=== PATIENT | male | born 1950 | race Caucasian/White ===

== ENCOUNTER 2020-05-12 13:42 | Emergency (ER) | payer OTHER, MEDICARE ==
--- NOTE | 2020-05-12 15:15 | EDPHYS ---
Physician Documentation [facility] Name: Tristan Rothman Jr Age: 70 yrs Sex: Male : 1950 Arrival Date: 05/12/2020 Time: 13:53 Bed 19 Private MD: ED Physician Heladio Vital HPI: 05/12 14:28 This 70 yrs old Male presents to ER via Ambulatory with complaints of COVID jr8 Testing. 14:28 Patients significant other has been presenting with symptoms consistent with COVID 19. jr8 Stated that she has had it for the past 4 days. Now he is worried that he may get it and wanted to be tested . The patient has not experienced similar symptoms in the past. The patient has not recently seen a physician. Historical: - Allergies: 13:59 No Known Allergies; ll1 - PMHx: 13:59 Hypertension; Diabetes - NIDDM; ll1 - PSHx: 13:59 knee surgery; ll1 - Immunization history:: Flu vaccine is up to date. - Social history:: Smoking status: Patient/guardian denies using tobacco, the patient reports quitting approximately 38 years ago, Patient uses alcohol, only on a social basis. admits to "couple of beers" a day. Patient/guardian denies using street drugs. ROS: 14:28 Constitutional: Negative for fever, chills, and weight loss, Eyes: Negative for injury, jr8 pain, redness, and discharge, ENT: Negative for injury, pain, and discharge, Neck: Negative for injury, pain, and swelling, Cardiovascular: Negative for chest pain, palpitations, and edema, Respiratory: Negative for shortness of breath, cough, wheezing, and pleuritic chest pain, Abdomen/GI: Negative for abdominal pain, nausea, vomiting, diarrhea, and constipation, Back: Negative for injury and pain, MS/Extremity: Negative for injury and deformity, Skin: Negative for injury, rash, and discoloration, Neuro: Negative for headache, weakness, numbness, tingling, and seizure. Exam: 14:28 Constitutional: This is a well developed, well nourished patient who is awake, alert, jr8 and in no acute distress. Eyes: Pupils equal round and reactive to light, extra-ocular motions intact. Lids and lashes normal. Conjunctiva and sclera are non-icteric and not injected. Cornea within normal limits. Periorbital areas with no swelling, redness, or edema. 14:28 Neuro: Awake and alert, GCS 15, oriented to person, place, time, and situation. Cranial nerves II-XII grossly intact. Motor strength 5/5 in all extremities. Sensory grossly intact. Cerebellar exam normal. Normal gait. 14:28 Cardiovascular: Rate: normal, Rhythm: regular, Edema: is not appreciated. 14:28 Respiratory: the patient does not display signs of respiratory distress, Respirations: normal. 14:28 Skin: Appearance: Color: normal in color, pink, Moisture: normal moisture. Vital Signs: 13:57 BP 132 / 78; Pulse 88; Resp 17; Temp 99.3; Pulse Ox 99% ; Pain 0/10; ll1 14:44 BP 116 / 69; Pulse 83; Resp 17; Temp 97.4; Pulse Ox 99% on R/A; vc MDM: 14:02 Patient medically screened. [facility] 14:28 Data reviewed: vital signs, nurses notes, lab test result(s), and as a result, I will 8 discharge patient. Data interpreted: Pulse oximetry: on room air is 99 %. Interpretation: normal. Counseling: I had a detailed discussion with the patient and/or guardian regarding: the historical points, exam findings, and any diagnostic results supporting the discharge/admit diagnosis, lab results, the need for outpatient follow up, a family practitioner, to return to the emergency department if symptoms worsen or persist or if there are any questions or concerns that arise at home. ED course: Discussed with patient to remain in isolation. If he were to become short of breath to come back to ED for further evaluation . 05/12 14:07 Order name: COVID-19 [facility] 05/12 14:07 Order name: Droplet/Contact Precautions; Complete Time: 14:44 8 05/12 14:07 Order name: Labs collected and sent; Complete Time: :44 8 05/12 14:07 Order name: O2 Per Protocol; Complete Time: :44 Administered Medications: No medications were administered Disposition: 16:02 Co-signature as Attending Physician, Heladio Vital MD. rn Disposition: 05/12/20 15:14 Discharged to Home. Impression: Encounter for COVID 19 screening . - Condition is Stable. - Discharge Instructions: COVID-19. - Medication Reconciliation Form, Thank You Letter, Antibiotic Education, Prescription Opioid Use form. - Follow up: Private Physician; When: As needed; Reason: Recheck today's complaints, Continuance of care, Re-evaluation by your physician. - Problem is new. - Symptoms are unchanged. Signatures: Dispatcher [employer] EDMS Heladio Vital MD MD rn Hieu Montague PA PA jr8 Lucy Ludwig RN RN vc Lewis, Lynsay, RN RN ll1 Corrections: (The following items were deleted from the chart) 15:55 15:14 05/12/2020 15:14 Discharged to Home. Impression: Encounter for COVID 19 screening vc . Condition is Stable. Forms are Medication Reconciliation Form, Thank You Letter, Antibiotic Education, Prescription Opioid Use. Follow up: Private Physician; When: As needed; Reason: Recheck today's complaints, Continuance of care, Re-evaluation by your physician. Problem is new. Symptoms are unchanged. jr8
--- NOTE | 2020-05-12 15:15 | ER ---
Nurse's Notes [facility] Name: Tristan Rothman Jr Age: 70 yrs Sex: Male : 1950 Arrival Date: 05/12/2020 Time: 13:53 Bed 19 Private MD: Diagnosis: Encounter for COVID 19 screening Presentation: 05/12 13:57 Chief complaint: Patient states: Significant other is sick and he wants to be tested ll1 for vicente since she is here being seen also. Denies cough fever and N/V/D. Coronavirus screen: Surgical mask placed on patient. Patient moved to private room, placed in contact and droplet isolation with eye protection until further assessment. Patient denies a cough. Patient denies shortness of breath or difficulty breathing. Patient denies measured and/or subjective temperature greater than 100.4F prior to today's visit. Patient denies travel on a cruise ship or to a country the [facility] currently lists as an affected area. Patient denies contact with known and/or suspected case of COVID-19. Ebola Screen: Patient denies travel to an Ebola-affected area in the 21 days before illness onset. Initial Sepsis Screen: Does the patient meet any 2 criteria? No. Patient's initial sepsis screen is negative. Does the patient have a suspected source of infection? No. Patient's initial sepsis screen is negative. Risk Assessment: Do you want to hurt yourself or someone else? Patient reports no desire to harm self or others. Onset of symptoms was May 12, 2020. 13:57 Method Of Arrival: Ambulatory ll1 13:57 Acuity: MARINA 5 ll1 Triage Assessment: 14:30 General: Appears in no apparent distress. comfortable, Behavior is calm, cooperative, vc appropriate for age. Pain: Denies pain. Historical: - Allergies: 13:59 No Known Allergies; ll1 - PMHx: 13:59 Hypertension; Diabetes - NIDDM; ll1 - PSHx: 13:59 knee surgery; ll1 - Immunization history:: Flu vaccine is up to date. - Social history:: Smoking status: Patient/guardian denies using tobacco, the patient reports quitting approximately 38 years ago, Patient uses alcohol, only on a social basis. admits to "couple of beers" a day. Patient/guardian denies using street drugs. Screenin:30 Abuse screen: Denies threats or abuse. Nutritional screening: No deficits noted. vc Tuberculosis screening: No symptoms or risk factors identified. Fall Risk None identified. Assessment: 14:30 General: Appears in no apparent distress. comfortable, Behavior is calm, cooperative, vc appropriate for age. Pain: Denies pain. Neuro: Level of Consciousness is awake, alert, obeys commands, Oriented to person, place, time, situation, Appropriate for age. Cardiovascular: Capillary refill < 3 seconds Patient's skin is warm and dry. Respiratory: Airway is patent Respiratory effort is even, unlabored, Respiratory pattern is regular, symmetrical. Respiratory: Denies cough, shortness of breath labored breathing. GI: No signs and/or symptoms were reported involving the gastrointestinal system. : No signs and/or symptoms were reported regarding the genitourinary system. EENT: No deficits noted. Derm: Skin is intact, is healthy with good turgor, Skin temperature is warm. 15:40 Reassessment: Patient appears in no apparent distress at this time. Patient and/or vc family updated on plan of care and expected duration. Pain level reassessed. Patient is alert, oriented x 3, equal unlabored respirations, skin warm/dry/pink. Patient states, "I feel absolutely fine.". Vital Signs: 13:57 BP 132 / 78; Pulse 88; Resp 17; Temp 99.3; Pulse Ox 99% ; Pain 0/10; ll1 14:44 BP 116 / 69; Pulse 83; Resp 17; Temp 97.4; Pulse Ox 99% on R/A; vc ED Course: 13:53 Patient arrived in ED. fj1 13:59 Triage completed. ll1 14:00 Arm band placed on Patient placed in an exam room, on a stretcher. ll1 14:02 Hieu Montague PA is PHCP. jr8 14:02 Heladio Vital MD is Attending Physician. jr8 14:25 Patient swabbed for COVID-19. jp3 14:26 Lucy Ludwig, LUCILA is Primary Nurse. vc 15:40 No provider procedures requiring assistance completed. Patient did not have IV access vc during this emergency room visit. Administered Medications: No medications were administered Outcome: 15:14 Discharge ordered by . jr8 15:40 Patient left the ED. vc 15:40 Discharged to home ambulatory, with significant other. vc 15:40 Condition: good 15:40 Discharge instructions given to patient, Instructed on discharge instructions, follow up and referral plans. Demonstrated understanding of instructions, follow-up care. Addendum: 05/14/2020 11:32 Addendum: Other pt notified of negative COVID-19 swab results. pt advised to remain in d m5 isolation until symptom free for 3 days and to return to the ED if symptoms worsen. Signatures: Shabnam Kraft, RN RN dm5 Hieu Montague PA PA jr8 Nain Jauregui jp3 Lucy Ludwig RN RN vc James, Frank fj1 Leroy Lord RN RN ll1 Corrections: (The following items were deleted from the chart) 05/12 14:58 14:56 Patient swabbed for COVID-19 jp3 jp3 15:57 15:55 Patient left the ED. vc vc
[2020-05-12 18:27] VITALS: O2SAT 99
[2020-05-12 18:29] VITALS: BP 116/69; TEMP 97.4
== END 2020-05-12 15:55 | disposition home or self-care (01) ==
LOC: ER 13:42
DX: Z20.828 Contact with and (suspected) exposure to other viral communicable diseases (principal)
CPT/HCPCS: 99281; U0001

== ENCOUNTER 2022-12-21 10:12 | Emergency (ER) | payer MEDICARE, OTHER ==
--- OUTSIDE RECORDS SUMMARY | 2022-12-21 10:26 | XMS REPORT | Clinical Summary ---
:1950 Author Organization [facility] Address [address] [place] [address] Care Team Providers Name Role Phone Lorne Youssef MD Primary Care Provider Allergies Active Allergy Reactions Severity Noted Date Comments Sulfamethoxazole-Trim 11/27/2022 ethoprim Tree And Shrub Pollen Other (See Comments) 11/12/2022 Mild tree pollen allergy per pat ient manifests with rhinorrhea Medications Medication Sig Dispensed Refills Start End Status Date Date timolol (TIMOPTIC) Administer 1 0 Active 0.5% ophthalmic drop to both solution eyes twice daily. latanoprostene bunod Apply 1 drop to 5 mL 1 11/14/20 Active 0.024 % eye daily. 22 dropIndications: Primary open-angle glaucoma, unspecified eye, stage unspecified apixaban (Eliquis) Take 1 tablet 60 tablet 1 12/06/19 Active 2.5 mg (2.5 mg) by 23 tabletIndications: mouth every 12 deep venous (twelve) hours. thrombosis atorvastatin Take 1 tablet 30 tablet 2 12/07/19 Act sandra (LIPITOR) 40 mg (40 mg) by mouth 23 tabletIndications: at bedtime. 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 levoFLOXacin Take 1 tablet 30 tablet 2 12/08/19 Act sandra (LEVAQUIN) 500 mg (500 mg) by 23 tabletIndications: mouth daily. prevent bacterial infection loratadine Take 1 tablet 0 12/07/19 Activ e (CLARITIN) 10 mg (10 mg) by mouth 23 tabletIndications: at bedtime. 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 leukemia not having achieved remission, Fungal pneumonia valACYclovir Take 1 tablet 30 tablet 5 12/08/19 Act sandra (VALTREX) 500 mg (500 mg) by 23 tabletIndications: mouth daily. prevention of herpes zoster in immunocompromised patient tamsulosin (FLOMAX) Take 1 capsule 30 capsule 2 12/08/19 Active 0.4 mg 24 hr (0.4 mg) by 23 capsuleIndications: mouth daily. 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 insulin aspart, Inject 0 to 16 15 mL 12/08/19 Active niacinamide, (Fiasp Units under the 23 FlexTouch U-100 skin 3 (three) Insulin) 100 unit/mL times a day. (3 mL) Take as inpnIndications: instructed at Type 2 diabetes discharge. mellitus with hyperglycemia blood-glucose meter Use as 1 each 0 12/08/19 Active kitIndications: Type instructed 23 024 2 diabetes mellitus with hyperglycemia lancets 1 each by 300 each 12/08/19 Active miscIndications: miscellaneous 23 Type 2 diabetes route 4 (four) mellitus with times a day. hyperglycemia blood sugar 1 each by 200 strip 12/08/19 Active diagnostic (glucose miscellaneous 23 blood) route 4 (four) strpIndications: times a day. Type 2 diabetes mellitus with hyperglycemia pen needle, diabetic 1 each by 200 each 12/08/19 Active 32 gauge x 5/32" miscellaneous 23 ndleIndications: route 4 (four) Type 2 diabetes times a day. mellitus with hyperglycemia lisinopril Take 1 tablet 0 Activ e (PRINIVIL,ZESTRIL) (40 mg) by mouth 40 mg tablet every morning. traMADol (ULTRAM) 50 Take 1 tablet 10 tablet 0 12/08/19 Active mg (50 mg) by mouth 23 tabletIndications: every 6 (six) Acute myeloblastic hours as needed leukemia not having for moderate achieved remission pain. Toujeo SoloStar Inject 18 Units 0 10/05/20 Active U-300 Insulin 300 under the skin 22 unit/mL (1.5 mL) every morning. insulin pen caspofungin Infuse 70 mg 11 each 0 12/19/19 Activ e (CANCIDAS) IV intravenously prescription (HOME daily for 11 USE)Indications: days. Last dose Fungal pneumonia on 12/29/22. amphotericin B Infuse 450 mg 126 each 0 12/19/19 A ctive liposomal (AmBisome) intravenously 3 023 50 mg (three) times a injectionIndications week Sunday, : Fungal pneumonia Sunday and Sunday for 11 days. To treat pneumonia. To be administered in [facility] ([facility]). furosemide (LASIX) Take 1 tablet 15 tablet 0 12/20/19 Active 20 mg (20 mg) by mouth 23 tabletIndications: every other day. 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 dextromethorphan-gua Take 10 mL by 0 Active iFENesin mouth every 6 (ROBITUSSIN-DM) 10 (six) hours as mg-100 mg/5 mL needed for cough liquid or congestion. voriconazole (VFEND) Take 1 tablet 60 tablet 0 11/06/2011/06 Discontinued 200 mg (200 mg) by (Reorder ) tabletIndications: mouth twice prevent fungal daily. infection voriconazole (VFEND) Take 1 tablet 60 tablet 2 11/06/2011/21 Discontinued 200 mg (200 mg) by (Stop Ta billy at tabletIndications: mouth twice Discharge) prevent fungal daily. infection INV-() Take 1 tablet 80 tablet 0 11/06/20 Discontinued venetoclax (ABT-199) (100 mg) by 022 (Stop Taking at 100 mg mouth every Discharg e) tabletIndications: morning for 1 Acute leukemia, not day, THEN 2 otherwise specified tablets (200 mg) every morning for 1 day, THEN 4 tablets (400 mg) every morning for 19 days. Take on days 1-21 by mouth with 8 ounces of water within 30 minutes after completion of a meal.. posaconazole Take 3 tablets 90 tablet 5 11/21/ Di scontinued (NOXAFIL) [address] (300 mg) by (Reorder) tabletIndications: mouth daily. 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 Take on Disch arge) tabletIndications: days 1-21 by Acute leukemia, not mouth with 8 otherwise specified ounces of water within 30 minutes after completion of a meal apixaban (Eliquis) Take 1 tablet 60 tablet 1 12/06/19 Discontinued 2.5 mg (2.5 mg) by (Reorder ) tabletIndications: mouth every 12 Acute myeloblastic (twelve) hours. leukemia not having achieved remission potassium chloride Take 1 tablet 60 tablet 0 12/08/19 Discontinued (K-DUR,KLOR-CON M) (20 mEq) by (Reorder) 20 mEq mouth twice tabletIndications: daily. 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 To treat Fungal pneumonia pneumonia. To be administered in [facility] ([facility]) once daily until at least December 22. amphotericin B Infuse 450 mg 126 each 0 12/09/19 D iscontinued liposomal (AmBisome) intravenously 23 023 (Reorder) 50 mg daily for 14 injectionIndications days. To treat : Fungal pneumonia pneumonia. To be administered in [facility] ([facility]) once daily until at least December 22. insulin degludec 100 Inject 10 Units 15 mL 6 12/08/1908/01 Discontinued unit/mL (3 mL) under the skin 23 023 (Reorder) insulin daily. Do not penIndications: Type take if your 2 diabetes mellitus blood sugar is with hyperglycemia less than 100 mg/dL. pen needle, diabetic Use as directed. 10 each 0 12/08/19 Discontinued needle 23 023 (Stop Taki ng at Discharge) pen needle, diabetic Use as directed. 10 each 0 12/08/19 Discontinued needle 23 023 (Stop Taki ng at Discharge) enoxaparin (Lovenox) Inject 0.8 mL 10 each 0 12/08/1912/18 Discontinued 80 mg/0.8 mL (80 mg) under 23 023 (St op Taking at prefilled the skin every Disch arge) syringeIndications: 12 (twelve) Acute embolism and hours. thrombosis of unspecified deep veins of distal lower extremity, bilateral, not otherwise specified insulin degludec 100 Inject 18 Units 15 mL 6 12/08/19 Discontinued unit/mL (3 mL) under the skin 23 023 (Stop Taking at insulin daily. Do not Discha rge) penIndications: Type take if your 2 diabetes mellitus blood sugar is with hyperglycemia less than 100 mg/dL. pen needle, diabetic Use as directed. 10 each 0 12/08/19 Discontinued needle 23 023 (Stop Taki ng at Discharge) amphotericin B Infuse 450 mg 126 each 0 12/18/19 D iscontinued liposomal (AmBisome) intravenously 3 23 023 (Reorder) 50 mg (three) times a injectionIndications week Sunday, : Fungal pneumonia Sunday and Sunday for 12 days. To treat pneumonia. To be administered in [facility] ([facility]). caspofungin Infuse 70 mg 0 12/18/19 Disco ntinued (CANCIDAS) IV intravenously 23 023 (R eorder) prescription (HOME daily for 12 USE)Indications: days. To treat Fungal pneumonia pneumonia. To be administered in [facility] ([facility]). 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 11/07/2022 penitentiary current use of systemic steroid 11/02/2022 Adverse effect of glucocorticoids and synthetic analog ues 11/02/2022 Type 2 diabetes mellitus with hyperglycemia 10/31/2022 Current use of insulin 10/31/2022 Hemoglobin A1c greater than 10 percent indicating poor diabetic control 10/31/2022 Erythematous rash 10/29/2022 Acute leukemia 10/29/2022 Chronic kidney disease 10/29/2022 Essential (primary) hypertension 10/29/2022 Hyperlipidemia 10/29/2022 Anemia due to antineoplastic chemotherapy 10/29/2022 Other secondary thrombocytopenia 10/29/2022 Immunosuppression 10/29/2022 Other specified dermatitis Encounters Date Type Specialty Care Team Description 12/21/2022 Telephone Leukemia Cipriano Herrera, RN 12/20/2022 Hospital Encounter Infusion Services Nicol Cook, Fungal pneumonia WATER REUSE PROGRAM MANAGER (Primary Dx) Ruby Schulz RN 12/20/2022 Office Visit Leukemia Nicol Cook, Acute myel oblastic WATER REUSE PROGRAM MANAGER leukemia Melanie Mosley PA 12/20/2022 Hospital Encounter Lab Nicol Cook, Acut e myeloblastic WATER REUSE PROGRAM MANAGER leukemia 12/20/2022 Travel 12/18/2022 Orders Only Leukemia Orantes, Acute myeloblas tic Rosa Maria, [employer] leukemia not having achieved remission (Prim paulette Dx) 12/15/2022 Documentation Cardiology Nyala Mcfadden 12/13/2022 Orders Only Leukemia Orantes, Acute myeloblas tic Rosa Maria, [employer] leukemia not having achieved remission (Prim paulette Dx) 12/12/2022 Hospital Encounter Leukemia David Nguyen Dyspn ea (Primary Dx); - Fluid overload; 12/18/2022 Lorne Youssef MD Acute myeloblastic leukemia not having a chieved remission; Roshan Fungal pneumoni a; MD Fiona Leukemic infi ltration of skin; 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; Abnormal postur e; Difficulty in w alking 12/12/2022 Infusion Infusion Services Nicol Cook, Funga l pneumonia WATER REUSE PROGRAM MANAGER (Primary Dx) Froylan Ruffin, RN 12/12/2022 Follow-Up Leukemia Lorne Youssef MD Leukemic in filtration of skin (Primary Dx); Acute myeloblas tic leukemia 12/12/2022 Hospital Encounter Bone Marrow Nicol Cook, Acut e myeloblastic WATER REUSE PROGRAM MANAGER leukemia Donnie Cuellar PA 12/12/2022 Hospital Encounter Lab Nicol Cook, Acut e myeloblastic WATER REUSE PROGRAM MANAGER leukemia 12/12/2022 Orders Only Radiology Glen Pena PA 12/12/2022 Orders Only Leukemia Jhoan Leo, [facility] 12/12/2022 Telephone Endocrinology Christina Jean, QUIQUE 12/12/2022 Travel 12/11/2022 Office Visit Leukemia Nicol Cook, Acute myel oblastic WATER REUSE PROGRAM MANAGER leukemia Shellie Almaraz PA 12/11/2022 Hospital Encounter Infusion Services Jocelin Ledezma F ungal pneumonia (Primary Dx); 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 [employer] Acute myeloblastic leukemia Corine Mccall RN 12/11/2022 Hospital Encounter Lab Nicol Cook, Acut e myeloblastic WATER REUSE PROGRAM MANAGER leukemia 12/11/2022 Orders Only Leukemia Lorne Youssef MD 12/11/2022 Travel 12/10/2022 Hospital Encounter Infusion Services Nicol Cook, Fungal pneumonia WATER REUSE PROGRAM MANAGER (Primary Dx) Alexander Hicks, LUCILA 12/10/2022 Hospital Encounter Lab Nicol Cook, Acut e myeloblastic WATER REUSE PROGRAM MANAGER leukemia 12/10/2022 Travel 12/09/2022 Hospital Encounter Infusion Services Jocelin Ledezma F ungal pneumonia 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) Loida Ball V, RN 12/09/2022 Hospital Encounter Lab Nicol Cook, Acut e myeloblastic WATER REUSE PROGRAM MANAGER leukemia 12/09/2022 Travel 12/08/2022 Orders Only Leukemia Nicol Cook, Acute myel oblastic WATER REUSE PROGRAM MANAGER leukemia (Prima ry Dx) 12/07/2022 Orders Only Leukemia Joey, Shailee M, Acute myel oblastic WATER REUSE PROGRAM MANAGER leukemia (Prima ry Dx) 12/02/2022 Orders Only Radiology Martínez Hannah, RT 11/27/2022 Travel 11/27/2022 Orders Only Infectious Diseases Plascencia, Fungal p MIGDALIA Goetz (Primary Dx) 11/27/2022 Orders Only Leukemia Nicol Cook M, Acute myel oblastic WATER REUSE PROGRAM MANAGER leukemia (Prima ry Dx) 11/21/2022 Orders Only Bone Marrow Papi Trejo 11/20/2022 Orders Only Leukemia Lorne Youssef MD 11/19/2022 Orders Only Leukemia Zamzam Judge PA 11/14/2022 Surgery Pulmonology Rigoberto Phillip, FLEXIBLE MD BRONCHOSCOPY [facility] BRONCHIAL ALVEO LAR LAV[place] 11/11/2022 Orders Only Leukemia Lorne Youssef MD 11/07/2022 Orders Only Leukemia Lorne Youssef MD 11/06/2022 Orders Only Leukemia Lorne Youssef MD 11/06/2022 Documentation Leukemia Kailyn Mack, LUCILA 11/03/2022 Documentation Leukemia Oziel Blackmon, [facility]/03/2022 Orders Only Leukemia Lorne Youssef MD 11/02/2022 Orders Only Leukemia Lorne Youssef MD 11/01/2022 Orders Only Leukemia Lorne Youssef MD 10/30/2022 Documentation Leukemia Oziel Blackmon, [facility]/30/2022 Orders Only Leukemia Lorne Youssef MD 10/29/2022 Hospital Encounter Leukemia Chaftari, Acute mye loblastic leukemia not having achieved remission (Primary Dx); - MD Devin Erythematous rash; 12/08/2022 Lorne Youssef MD Acute leukemia, not otherwise specified; Omar Villanueva, Chronic kidn ey disease; Diabetes chris ; Essential (prim paulette) hypertension; Immunosuppressi on; Other secondary thrombocytopenia; Type 2 diabetes mellitus; Neoplasm of unc ertain behavior of skin; Encounter for a djustment and management of vascular access device; Pneumonia, orga nism unspecified; Primary open-an gle glaucoma, unspecified eye, stage unspecified; Fungal pneumoni a; Type 2 diabetes mellitus with hyperglycemia; Acute embolism and thrombosis of unspecified deep veins of distal lower extremity, bilateral, not otherwise specified 10/29/2022 Orders Only Leukemia Lorne Youssef MD 10/29/2022 Travel after 12/21/2021 Surgical History Surgery Date Site/Laterality Comments CT BRNCHSC W/BRNCL ALVEOLAR 11/14/2022 N/A Proc edure: FLEXIBLE LAVAGE BRONCHOSCOPY WIT H BRONCHIAL ALVEOLAR LAVAGE; Surgeon: Rigoberto Phillip MD; Lo cation: MAIN PULM PROC; Servi ce: PULMONARY Medical History Medical History Date Comments Essential (primary) hypertension Type 2 diabetes mellitus with hyperglycemia 1991 Social History Tobacco Use Types Packs/Day Years Used Date Smoking Tobacco: Never Smokeless Tobacco: Never Tobacco Cessation: Counseling Given: Not Answered Sex Assigned at Date Recorded Not on file Job Start Date Occupation Industry Not on file Not on file Not on file COVID-19 Exposure Response Date Recorded In the last 10 days, have you been in contact with No / Unsu re 12/20/2022 12:35 PM [employer] someone who was confirmed or suspected to have Coronavirus/COVID-19? Obstetrics History Last Filed Vital Signs Vital Sign Reading Time Taken Comments Blood Pressure 135/74 12/20/2022 1:42 PM [employer] Pulse 58 12/20/2022 1:42 PM [employer] Temperature 36.7 C (98.1 F) 12/20/2022 1:42 PM [employer] Respiratory Rate 20 12/20/2022 1:42 PM [employer] Oxygen Saturation 99% 12/20/2022 1:42 PM [employer] Inhaled Oxygen Concentration - - Weight 87 kg (191 lb 12.8 oz) 12/20/2022 12:42 PM [employer] Height 172.5 cm (5' 7.91") 12/12/2022 11:02 PM [employer] Body Mass Index 29.24 12/12/2022 11:02 PM [employer] Plan of Treatment Date Type Specialty Care Team Description 12/22/2022 Appointment Lab Nicol Cook NP [address] [place], [place] [address] (Michael gibbons) 12/22/2022 Follow-Up Leukemia Lorne Youssef MD [address] [place], [place] [address] (Michael gibbons) 12/22/2022 Office Visit Leukemia Nicol Cook , WATER REUSE PROGRAM MANAGER [address] [place], [place] [address] (Wo rk) 12/22/2022 Appointment Infusion Services Nicol Cook, WATER REUSE PROGRAM MANAGER [address] [place], [place] [address] (Wo rk) 12/25/2022 Appointment Infusion Services Gayle Orantes APN [address] [place], [place] [address] (Wo rk) 12/27/2022 Appointment Infusion Services Gayle Orantes APN [address] [place], [place] [address] (Wo rk) 12/29/2022 Appointment Infusion Services Gayle Orantes APN [address] [place], [place] [address] (Wo rk) 01/01/2023 Appointment Infusion Services Gayle Orantes APN [address] [place], [place] [address] (Wo rk) 01/04/2023 Ancillary Procedure Radiology Allyson Plascencia PA [address] [place], [place] [address] (Wo rk) 01/05/2023 Follow-Up Infectious Diseases Allyson Plascencia PA [address] [place] [address] Boris Cook MD [facility] [place] [address] 01/05/2023 Telemedicine Endocrinology Shari Gillette AP N [address] [place] [address] (Wo rk) Health Maintenance Due Date Last Done Comments COVID-19 Vaccination (#1) 1950 Procedures Procedure Name Priority Date/Time Associated Comments Diagnosis TMP INTERPRETATION Routine 12/20/2022 8:35 Result s for ANTIBODY SCREEN AM [employer] this procedu re NEGATIVE are in the results section. CLOT EXPIRATION DATE Routine 12/20/2022 8:35 Resu lts for AM [employer] this procedure are in the results section. ANTIBODY SCREEN Routine 12/20/2022 8:35 Acute myeloblastic Res ults for AM [employer] leukemia this procedure are in the results section. ABORH Routine 12/20/2022 8:35 Acute myeloblastic Result s for AM [employer] leukemia this procedure are in the results section. .GLOMERULAR FILTRATION Routine 12/20/2022 8:35 Acute myeloblas tic Results for RATE AM [employer] leukemia this procedure are in the results section. SERUM CREATININE Routine 12/20/2022 8:35 Acute myeloblastic Re sults for AM [employer] leukemia this procedure are in the results section. MANUAL DIFFERENTIAL STAT 12/20/2022 8:35 Acute myeloblastic Results for AM [employer] leukemia this procedure are in the results section. Results CBC STAT 12/20/2022 8:35 Acute myeloblastic Result s for AM [employer] leukemia this procedure are in the results section. MAGNESIUM LEVEL Routine 12/20/2022 8:35 Acute myeloblastic Res ults for AM [employer] leukemia this procedure are in the results section. ELECTROLYTE PANEL Routine 12/20/2022 8:35 Acute myeloblastic R esults for AM [employer] leukemia this procedure are in the results section. ALANINE Routine 12/20/2022 8:35 Acute myeloblastic Result s for AMINOTRANSFERASE AM [employer] leukemia this proced ure are in the results section. LACTATE DEHYDROGENASE Routine 12/20/2022 8:35 Acute myeloblast ic Results for AM [employer] leukemia this procedure are in the results section. ALKALINE PHOSPHATASE Routine 12/20/2022 8:35 Acute myeloblasti c Results for AM [employer] leukemia this procedure are in the results section. FRACTIONATED BILIRUBIN Routine 12/20/2022 8:35 Acute myeloblas tic Results for AM [employer] leukemia this procedure are in the results section. URIC ACID Routine 12/20/2022 8:35 Acute myeloblastic Result s for AM [employer] leukemia this procedure are in the results section. SERUM CREATININE Routine 12/20/2022 8:35 Acute myeloblastic AM [employer] leukemia BLOOD UREA NITROGEN Routine 12/20/2022 8:35 Acute myeloblastic Results for AM [employer] leukemia this procedure are in the results section. GLUCOSE, RANDOM Routine 12/20/2022 8:35 Acute myeloblastic Res ults for AM [employer] leukemia this procedure are in the results section. PHOSPHORUS LEVEL Routine 12/20/2022 8:35 Acute myeloblastic Re sults for AM [employer] leukemia this procedure are in the results section. CALCIUM LEVEL TOTAL Routine 12/20/2022 8:35 Acute myeloblastic Results for AM [employer] leukemia this procedure are in the results section. ALBUMIN LEVEL Routine 12/20/2022 8:35 Acute myeloblastic Resul ts for AM [employer] leukemia this procedure are in the results section. TOTAL PROTEIN Routine 12/20/2022 8:35 Acute myeloblastic Resul ts for AM [employer] leukemia this procedure are in the results section. COMPLETE BLOOD COUNT W/ Routine 12/20/2022 8:35 Acute myelobla stic DIFFERENTIAL AM [employer] leukemia TYPE AND SCREEN Routine 12/20/2022 8:35 Acute myeloblastic AM [employer] leukemia POC GLUCOSE SCREEN Routine 12/18/2022 1:24 Result s for PM [employer] this procedure are in the results section. POC GLUCOSE SCREEN Routine 12/18/2022 8:09 Result s for AM [employer] this procedure are in the results section. ANION GAP AM 12/18/2022 12:49 Results for AM [employer] this procedure are in the results section. .GLOMERULAR FILTRATION AM 12/18/2022 12:49 R esults for RATE AM [employer] this procedure are in the results section. SERUM CREATININE AM 12/18/2022 12:49 Results for AM [employer] this procedure are in the results section. MANUAL DIFFERENTIAL AM 12/18/2022 12:49 Resu lts for AM [employer] this procedure are in the results section. Results CBC AM 12/18/2022 12:49 Results for AM [employer] this procedure are in the results section. NT PRO BNP AM 12/18/2022 12:49 Results for AM [employer] this procedure are in the results section. URIC ACID AM 12/18/2022 12:49 Results for AM [employer] this procedure are in the results section. ASPARTATE AM 12/18/2022 12:49 Results for AMINOTRANSFERASE AM [employer] this proced ure are in the results section. ALANINE AM 12/18/2022 12:49 Results for AMINOTRANSFERASE AM [employer] this proced ure are in the results section. ALKALINE PHOSPHATASE AM 12/18/2022 12:49 Res ults for AM [employer] this procedure are in the results section. FRACTIONATED BILIRUBIN AM 12/18/2022 12:49 R esults for AM [employer] this procedure are in the results section. PHOSPHORUS LEVEL AM 12/18/2022 12:49 Results for AM [employer] this procedure are in the results section. ALBUMIN LEVEL AM 12/18/2022 12:49 Results fo r AM [employer] this procedure are in the results section. TOTAL PROTEIN AM 12/18/2022 12:49 Results fo r AM [employer] this procedure are in the results section. CARBON DIOXIDE LEVEL AM 12/18/2022 12:49 Res ults for AM [employer] this procedure are in the results section. CHLORIDE LEVEL AM 12/18/2022 12:49 Results f or AM [employer] this procedure are in the results section. MAGNESIUM LEVEL AM 12/18/2022 12:49 Results for AM [employer] this procedure are in the results section. POTASSIUM LEVEL AM 12/18/2022 12:49 Results for AM [employer] this procedure are in the results section. SODIUM LEVEL AM 12/18/2022 12:49 Results for AM [employer] this procedure are in the results section. SERUM CREATININE AM 12/18/2022 12:49 AM [employer] BLOOD UREA NITROGEN AM 12/18/2022 12:49 Resu lts for AM [employer] this procedure are in the results section. CALCIUM LEVEL TOTAL AM 12/18/2022 12:49 Resu lts for AM [employer] this procedure are in the results section. GLUCOSE, RANDOM AM 12/18/2022 12:49 Results for AM [employer] this procedure are in the results section. COMPLETE BLOOD COUNT W/ AM 12/18/2022 12:49 DIFFERENTIAL AM [employer] EKG, 12-LEAD (PORTABLE) Routine 12/18/2022 POC GLUCOSE SCREEN Routine 12/17/2022 9:03 Result s for PM [facility] this procedure are in the results section. POC GLUCOSE SCREEN Routine 12/17/2022 6:03 Result s for PM [employer] [employer] this procedure are in the results section. US UPPER EXTREMITY Routine 12/17/2022 2:44 Result s for LIMITED LEFT [facility] [employer] this procedure are in the results section. POC GLUCOSE SCREEN Routine 12/17/2022 1:37 Result s for PM [facility] [employer] this procedure are in the results section. POC GLUCOSE SCREEN Routine 12/17/2022 8:49 Result s for AM [facility] [employer] this procedure are in the results section. CLOT EXPIRATION DATE Routine 12/17/2022 5:33 Resu lts for AM [employer] [employer] this procedure are in the results section. TMP INTERPRETATION Routine 12/17/2022 5:33 Result s for ANTIBODY SCREEN [facility] this procedu re NEGATIVE are in the results section. ANION GAP AM 12/17/2022 5:33 Results for AM [facility] [employer] this procedure are in the results section. .GLOMERULAR FILTRATION AM 12/17/2022 5:33 Re sults for RATE [facility] this procedure are in the results section. SERUM CREATININE AM 12/17/2022 5:33 Results for AM [facility] [employer] this procedure are in the results section. MANUAL DIFFERENTIAL AM 12/17/2022 5:33 Resul ts for AM [employer] this procedure are in the results section. Results CBC AM 12/17/2022 5:33 Results for AM [employer] [employer] this procedure are in the results section. ANTIBODY SCREEN Routine 12/17/2022 5:33 Results f or [facility] [employer] this procedure are in the results section. ABORH Routine 12/17/2022 5:33 Results for AM [employer] this procedure are in the results section. NT PRO BNP AM 12/17/2022 5:33 Results for AM [facility] [employer] this procedure are in the results section. FIBRINOGEN ACTIVITY Routine 12/17/2022 5:33 Resul ts for AM [facility] this procedure are in the results section. D DIMER Routine 12/17/2022 5:33 Results for AM [facility] [employer] this procedure are in the results section. APTT Routine 12/17/2022 5:33 Results for AM [employer] [employer] this procedure are in the results section. PROTHROMBIN TIME Routine 12/17/2022 5:33 Results for AM [employer] this procedure are in the results section. URIC ACID AM 12/17/2022 5:33 Results for AM [employer] this procedure are in the results section. ASPARTATE AM 12/17/2022 5:33 Results for AMINOTRANSFERASE [facility] this proced ure are in the results section. ALANINE AM 12/17/2022 5:33 Results for AMINOTRANSFERASE AM [facility] this proced ure are in the results section. ALKALINE PHOSPHATASE AM 12/17/2022 5:33 Resu lts for AM [employer] this procedure are in the results section. FRACTIONATED BILIRUBIN AM 12/17/2022 5:33 Re sults for AM [employer] this procedure are in the results section. PHOSPHORUS LEVEL AM 12/17/2022 5:33 Results for AM [employer] this procedure are in the results section. ALBUMIN LEVEL AM 12/17/2022 5:33 Results for AM [employer] [employer] this procedure are in the results section. TOTAL PROTEIN AM 12/17/2022 5:33 Results for AM [facility] this procedure are in the results section. CARBON DIOXIDE LEVEL AM 12/17/2022 5:33 Resu lts for AM [facility] this procedure are in the results section. CHLORIDE LEVEL AM 12/17/2022 5:33 Results fo r AM [facility] this procedure are in the results section. MAGNESIUM LEVEL AM 12/17/2022 5:33 Results f or [facility] [employer] this procedure are in the results section. POTASSIUM LEVEL AM 12/17/2022 5:33 Results f or [facility] [employer] this procedure are in the results section. SODIUM LEVEL AM 12/17/2022 5:33 Results for AM [facility] this procedure are in the results section. SERUM CREATININE AM 12/17/2022 5:33 AM [facility] BLOOD UREA NITROGEN AM 12/17/2022 5:33 Resul ts for AM [facility] this procedure are in the results section. CALCIUM LEVEL TOTAL AM 12/17/2022 5:33 Resul ts for AM [employer] this procedure are in the results section. GLUCOSE, RANDOM AM 12/17/2022 5:33 Results f or [facility] [employer] this procedure are in the results section. COMPLETE BLOOD COUNT W/ AM 12/17/2022 5:33 DIFFERENTIAL [facility] TYPE AND SCREEN Routine 12/17/2022 5:33 AM [facility] LOWER RESPIRATORY Routine 12/16/2022 10:52 Result s for CULTURE W/ GRAM STAIN [facility] this p rocedure are in the results section. POC GLUCOSE SCREEN Routine 12/16/2022 10:00 Resul ts for PM [employer] this procedure are in the results section. POC GLUCOSE SCREEN Routine 12/16/2022 5:35 Result s for PM [employer] this procedure are in the results section. POTASSIUM LEVEL Routine 12/16/2022 4:13 Results f or [facility] [employer] this procedure are in the results section. POC GLUCOSE SCREEN Routine 12/16/2022 12:34 Resul ts for PM [employer] this procedure are in the results section. POC GLUCOSE SCREEN Routine 12/16/2022 8:00 Result s for AM [employer] this procedure are in the results section. ANION GAP AM 12/16/2022 2:52 Results for AM [employer] this procedure are in the results section. .GLOMERULAR FILTRATION AM 12/16/2022 2:52 Re sults for RATE [facility] [employer] this procedure are in the results section. SERUM CREATININE AM 12/16/2022 2:52 Results for AM [employer] this procedure are in the results section. MANUAL DIFFERENTIAL AM 12/16/2022 2:52 Resul ts for AM [employer] this procedure are in the results section. Results CBC AM 12/16/2022 2:52 Results for AM [employer] this procedure are in the results section. POSACONAZOLE LEVEL, Timed Study 12/16/2022 2:52 Resul ts for SERUM [facility] this procedure are in the results section. NT PRO BNP AM 12/16/2022 2:52 Results for AM [facility] this procedure are in the results section. URIC ACID AM 12/16/2022 2:52 Results for AM [facility] this procedure are in the results section. ASPARTATE AM 12/16/2022 2:52 Results for AMINOTRANSFERASE [facility] this proced ure are in the results section. ALANINE AM 12/16/2022 2:52 Results for AMINOTRANSFERASE AM [facility] this proced ure are in the results section. ALKALINE PHOSPHATASE AM 12/16/2022 2:52 Resu lts for AM [employer] this procedure are in the results section. FRACTIONATED BILIRUBIN AM 12/16/2022 2:52 Re sults for AM [employer] this procedure are in the results section. PHOSPHORUS LEVEL AM 12/16/2022 2:52 Results for AM [employer] this procedure are in the results section. ALBUMIN LEVEL AM 12/16/2022 2:52 Results for AM [employer] this procedure are in the results section. TOTAL PROTEIN AM 12/16/2022 2:52 Results for AM [employer] this procedure are in the results section. CARBON DIOXIDE LEVEL AM 12/16/2022 2:52 Resu lts for AM [employer] this procedure are in the results section. CHLORIDE LEVEL AM 12/16/2022 2:52 Results fo r AM [facility] [employer] this procedure are in the results section. MAGNESIUM LEVEL AM 12/16/2022 2:52 Results f or AM [facility] this procedure are in the results section. POTASSIUM LEVEL AM 12/16/2022 2:52 Results f or [facility] [employer] this procedure are in the results section. SODIUM LEVEL AM 12/16/2022 2:52 Results for AM [employer] this procedure are in the results section. SERUM CREATININE AM 12/16/2022 2:52 AM [facility] BLOOD UREA NITROGEN AM 12/16/2022 2:52 Resul ts for AM [employer] this procedure are in the results section. CALCIUM LEVEL TOTAL AM 12/16/2022 2:52 Resul ts for AM [employer] this procedure are in the results section. GLUCOSE, RANDOM AM 12/16/2022 2:52 Results f or [facility] this procedure are in the results section. COMPLETE BLOOD COUNT W/ AM 12/16/2022 2:52 DIFFERENTIAL [facility] POC GLUCOSE SCREEN Routine 12/15/2022 9:42 Result s for PM [employer] this procedure are in the results section. POC GLUCOSE SCREEN Routine 12/15/2022 6:57 Result s for PM [employer] this procedure are in the results section. POC GLUCOSE SCREEN Routine 12/15/2022 1:29 Result s for PM [employer] this procedure are in the results section. POC GLUCOSE SCREEN Routine 12/15/2022 11:54 Resul ts for AM [employer] this procedure are in the results section. POC GLUCOSE SCREEN Routine 12/15/2022 8:45 Result s for AM [employer] this procedure are in the results section. ANION GAP AM 12/15/2022 2:42 Results for AM [employer] this procedure are in the results section. .GLOMERULAR FILTRATION AM 12/15/2022 2:42 Re sults for RATE [facility] [employer] this procedure are in the results section. SERUM CREATININE AM 12/15/2022 2:42 Results for AM [facility] this procedure are in the results section. MANUAL DIFFERENTIAL AM 12/15/2022 2:42 Resul ts for AM [employer] this procedure are in the results section. Results CBC AM 12/15/2022 2:42 Results for AM [employer] this procedure are in the results section. NT PRO BNP AM 12/15/2022 2:42 Results for AM [employer] this procedure are in the results section. URIC ACID AM 12/15/2022 2:42 Results for AM [employer] this procedure are in the results section. ASPARTATE AM 12/15/2022 2:42 Results for AMINOTRANSFERASE [facility] this proced ure are in the results section. ALANINE AM 12/15/2022 2:42 Results for AMINOTRANSFERASE AM [facility] this proced ure are in the results section. ALKALINE PHOSPHATASE AM 12/15/2022 2:42 Resu lts for AM [employer] this procedure are in the results section. FRACTIONATED BILIRUBIN AM 12/15/2022 2:42 Re sults for AM [employer] this procedure are in the results section. PHOSPHORUS LEVEL AM 12/15/2022 2:42 Results for AM [employer] this procedure are in the results section. ALBUMIN LEVEL AM 12/15/2022 2:42 Results for AM [facility] this procedure are in the results section. TOTAL PROTEIN AM 12/15/2022 2:42 Results for AM [employer] this procedure are in the results section. CARBON DIOXIDE LEVEL AM 12/15/2022 2:42 Resu lts for AM [employer] this procedure are in the results section. CHLORIDE LEVEL AM 12/15/2022 2:42 Results fo r AM [facility] [employer] this procedure are in the results section. MAGNESIUM LEVEL AM 12/15/2022 2:42 Results f or [facility] this procedure are in the results section. POTASSIUM LEVEL AM 12/15/2022 2:42 Results f or [facility] [employer] this procedure are in the results section. SODIUM LEVEL AM 12/15/2022 2:42 Results for AM [employer] this procedure are in the results section. SERUM CREATININE AM 12/15/2022 2:42 AM [facility] BLOOD UREA NITROGEN AM 12/15/2022 2:42 Resul ts for AM [employer] this procedure are in the results section. CALCIUM LEVEL TOTAL AM 12/15/2022 2:42 Resul ts for AM [employer] this procedure are in the results section. GLUCOSE, RANDOM AM 12/15/2022 2:42 Results f or [facility] [employer] this procedure are in the results section. COMPLETE BLOOD COUNT W/ AM 12/15/2022 2:42 DIFFERENTIAL [facility] POC GLUCOSE SCREEN Routine 12/14/2022 9:09 Result s for PM [employer] this procedure are in the results section. POC GLUCOSE SCREEN Routine 12/14/2022 6:35 Result s for PM [employer] this procedure are in the results section. TMP INTERPRETATION Routine 12/14/2022 3:19 Result s for ANTIBODY SCREEN [facility] this procedu re NEGATIVE are in the results section. CLOT EXPIRATION DATE Routine 12/14/2022 3:19 Resu lts for PM [employer] this procedure are in the results section. CALCIUM LEVEL TOTAL Routine 12/14/2022 3:19 Resul ts for PM [employer] this procedure are in the results section. .GLOMERULAR FILTRATION Routine 12/14/2022 3:19 Re sults for RATE [facility] this procedure are in the results section. SERUM CREATININE Routine 12/14/2022 3:19 Results for PM [employer] this procedure are in the results section. ELECTROLYTE PANEL Routine 12/14/2022 3:19 Results for PM [employer] this procedure are in the results section. BLOOD UREA NITROGEN Routine 12/14/2022 3:19 Resul ts for PM [employer] this procedure are in the results section. GLUCOSE LEVEL Routine 12/14/2022 3:19 Results for PM [employer] this procedure are in the results section. BASIC METABOLIC PANEL, Routine 12/14/2022 3:19 CALCIUM TOTAL PM [facility] ANTIBODY SCREEN Routine 12/14/2022 3:19 Results f or [facility] this procedure are in the results section. ABORH Routine 12/14/2022 3:19 Results for PM [employer] this procedure are in the results section. TYPE AND SCREEN Routine 12/14/2022 3:19 PM [facility] POC GLUCOSE SCREEN Routine 12/14/2022 1:23 Result s for PM [employer] this procedure are in the results section. POC GLUCOSE SCREEN Routine 12/14/2022 9:10 Result s for AM [employer] this procedure are in the results section. TRANSFUSE RED BLOOD Routine 12/14/2022 9:10 CELLS AM [facility] PRBC PRODUCT READY FOR Routine 12/14/2022 5:02 Re sults for BOX CAR CHECKER [facility] this procedure are in the results section. PREPARE RBC Routine 12/14/2022 5:02 Results for AM [employer] this procedure are in the results section. ANION GAP AM 12/14/2022 4:30 Results for AM [facility] this procedure are in the results section. .GLOMERULAR FILTRATION AM 12/14/2022 4:30 Re sults for RATE [facility] [employer] this procedure are in the results section. SERUM CREATININE AM 12/14/2022 4:30 Results for AM [employer] this procedure are in the results section. MANUAL DIFFERENTIAL AM 12/14/2022 4:30 Resul ts for AM [facility] this procedure are in the results section. Results CBC AM 12/14/2022 4:30 Results for AM [employer] this procedure are in the results section. NT PRO BNP AM 12/14/2022 4:30 Results for AM [facility] this procedure are in the results section. FIBRINOGEN ACTIVITY Routine 12/14/2022 4:30 Resul ts for AM [employer] this procedure are in the results section. D DIMER Routine 12/14/2022 4:30 Results for AM [employer] this procedure are in the results section. APTT Routine 12/14/2022 4:30 Results for AM [employer] this procedure are in the results section. PROTHROMBIN TIME Routine 12/14/2022 4:30 Results for AM [employer] this procedure are in the results section. URIC ACID AM 12/14/2022 4:30 Results for AM [employer] this procedure are in the results section. ASPARTATE AM 12/14/2022 4:30 Results for AMINOTRANSFERASE [facility] this proced ure are in the results section. ALANINE AM 12/14/2022 4:30 Results for AMINOTRANSFERASE AM [facility] [facility] this proced ure are in the results section. ALKALINE PHOSPHATASE AM 12/14/2022 4:30 Resu lts for AM [employer] this procedure are in the results section. FRACTIONATED BILIRUBIN AM 12/14/2022 4:30 Re sults for AM [employer] this procedure are in the results section. PHOSPHORUS LEVEL AM 12/14/2022 4:30 Results for AM [employer] this procedure are in the results section. ALBUMIN LEVEL AM 12/14/2022 4:30 Results for AM [facility] this procedure are in the results section. TOTAL PROTEIN AM 12/14/2022 4:30 Results for AM [facility] this procedure are in the results section. CARBON DIOXIDE LEVEL AM 12/14/2022 4:30 Resu lts for AM [employer] this procedure are in the results section. CHLORIDE LEVEL AM 12/14/2022 4:30 Results fo r [facility] this procedure are in the results section. MAGNESIUM LEVEL AM 12/14/2022 4:30 Results f or [facility] this procedure are in the results section. POTASSIUM LEVEL AM 12/14/2022 4:30 Results f or [facility] [employer] this procedure are in the results section. SODIUM LEVEL AM 12/14/2022 4:30 Results for AM [facility] this procedure are in the results section. SERUM CREATININE AM 12/14/2022 4:30 AM [facility] BLOOD UREA NITROGEN AM 12/14/2022 4:30 Resul ts for AM [employer] this procedure are in the results section. CALCIUM LEVEL TOTAL AM 12/14/2022 4:30 Resul ts for AM [facility] this procedure are in the results section. GLUCOSE, RANDOM AM 12/14/2022 4:30 Results f or [facility] [employer] this procedure are in the results section. COMPLETE BLOOD COUNT W/ AM 12/14/2022 4:30 DIFFERENTIAL [facility] POC GLUCOSE SCREEN Routine 12/13/2022 9:29 Result s for PM [facility] [employer] this procedure are in the results section. POC GLUCOSE SCREEN Routine 12/13/2022 6:07 Result s for PM [employer] this procedure are in the results section. CALCIUM LEVEL TOTAL Routine 12/13/2022 5:35 Resul ts for PM [employer] this procedure are in the results section. .GLOMERULAR FILTRATION Routine 12/13/2022 5:35 Re sults for RATE [facility] [employer] this procedure are in the results section. SERUM CREATININE Routine 12/13/2022 5:35 Results for PM [facility] [employer] this procedure are in the results section. ELECTROLYTE PANEL Routine 12/13/2022 5:35 Results for PM [employer] this procedure are in the results section. BLOOD UREA NITROGEN Routine 12/13/2022 5:35 Resul ts for PM [employer] this procedure are in the results section. GLUCOSE LEVEL Routine 12/13/2022 5:35 Results for PM [facility] [employer] this procedure are in the results section. BASIC METABOLIC PANEL, Routine 12/13/2022 5:35 CALCIUM TOTAL PM [facility] POC GLUCOSE SCREEN Routine 12/13/2022 1:15 Result s for PM [facility] this procedure are in the results section. GENERAL LABORATORY ADD STAT 12/13/2022 9:46 Re sults for ON TEST [facility] this procedure are in the results section. ECHOCARDIOGRAM 2D Routine 12/13/2022 9:29 Results for COMPLETE [facility] this procedure are in the results section. POC GLUCOSE SCREEN Routine 12/13/2022 8:15 Result s for AM [facility] this procedure are in the results section. NT PRO BNP Routine 12/13/2022 3:42 Results for AM [facility] this procedure are in the results section. MANUAL DIFFERENTIAL Routine 12/13/2022 3:42 Resul ts for AM [facility] this procedure are in the results section. Results CBC Routine 12/13/2022 3:42 Results for AM [facility] [employer] this procedure are in the results section. CALCIUM IONIZED, VENOUS Routine 12/13/2022 3:42 R esults for AM [facility] this procedure are in the results section. .GLOMERULAR FILTRATION Routine 12/13/2022 3:42 Re sults for RATE [facility] this procedure are in the results section. SERUM CREATININE Routine 12/13/2022 3:42 Results for AM [facility] [employer] this procedure are in the results section. ELECTROLYTE PANEL Routine 12/13/2022 3:42 Results for AM [facility] [employer] this procedure are in the results section. BLOOD UREA NITROGEN Routine 12/13/2022 3:42 Resul ts for AM [facility] this procedure are in the results section. GLUCOSE LEVEL Routine 12/13/2022 3:42 Results for AM [facility] this procedure are in the results section. COMPLETE BLOOD COUNT W/ Routine 12/13/2022 3:42 DIFFERENTIAL [facility] PHOSPHORUS LEVEL Routine 12/13/2022 3:42 Results for AM [facility] [employer] this procedure are in the results section. MAGNESIUM LEVEL Routine 12/13/2022 3:42 Results f or [facility] [employer] this procedure are in the results section. BASIC METABOLIC PANEL, Routine 12/13/2022 3:42 CALCIUM IONIZED [facility] TROPONIN T Timed Study 12/13/2022 3:42 Results for AM [facility] this procedure are in the results section. EKG, 12-LEAD (PORTABLE) STAT 12/13/2022 POC GLUCOSE SCREEN Routine 12/12/2022 11:58 Resul ts for [facility] this procedure are in the results section. TROPONIN T Timed Study 12/12/2022 11:21 Results for PM [facility] [employer] this procedure are in the results section. POC GLUCOSE SCREEN Routine 12/12/2022 10:23 Resul ts for PM [facility] this procedure are in the results section. CT CHEST PULMONARY STAT 12/12/2022 9:24 Result s for EMBOLISM W CONTRAST [facility] this pro cedure are in the results section. XR CHEST 1 VW STAT 12/12/2022 8:34 Results for PM [facility] this procedure are in the results section. COVID-19 (SARS-COV-2) Routine 12/12/2022 8:19 Res ults for ASYMPTOMATIC-LT [facility] this procedu re are in the results section. BLOODCULTURE Routine 12/12/2022 8:19 Results for PM [facility] this procedure are in the results section. MANUAL DIFFERENTIAL STAT 12/12/2022 7:55 Resul ts for PM [facility] [employer] this procedure are in the results section. Results CBC STAT 12/12/2022 7:55 Results for PM [facility] this procedure are in the results section. FRACTIONATED BILIRUBIN Routine 12/12/2022 7:55 Re sults for PM [facility] this procedure are in the results section. TOTAL PROTEIN Routine 12/12/2022 7:55 Results for PM [facility] this procedure are in the results section. ASPARTATE Routine 12/12/2022 7:55 Results for AMINOTRANSFERASE [facility] this proced ure are in the results section. ALANINE Routine 12/12/2022 7:55 Results for AMINOTRANSFERASE PM [facility] this proced ure are in the results section. ALKALINE PHOSPHATASE Routine 12/12/2022 7:55 Resu lts for PM [facility] this procedure are in the results section. ALBUMIN LEVEL Routine 12/12/2022 7:55 Results for PM [facility] [employer] this procedure are in the results section. CALCIUM LEVEL TOTAL Routine 12/12/2022 7:55 Resul ts for PM [facility] this procedure are in the results section. .GLOMERULAR FILTRATION Routine 12/12/2022 7:55 Re sults for RATE [facility] this procedure are in the results section. SERUM CREATININE Routine 12/12/2022 7:55 Results for PM [facility] this procedure are in the results section. ELECTROLYTE PANEL Routine 12/12/2022 7:55 Results for PM [facility] this procedure are in the results section. BLOOD UREA NITROGEN Routine 12/12/2022 7:55 Resul ts for PM [facility] [employer] this procedure are in the results section. GLUCOSE LEVEL Routine 12/12/2022 7:55 Results for PM [facility] [employer] this procedure are in the results section. APTT Routine 12/12/2022 7:55 Results for PM [facility] [employer] this procedure are in the results section. PROTHROMBIN TIME Routine 12/12/2022 7:55 Results for PM [facility] [employer] this procedure are in the results section. COMPLETE BLOOD COUNT W/ Routine 12/12/2022 7:55 DIFFERENTIAL [facility] NT PRO BNP Routine 12/12/2022 7:55 Results for PM [facility] [employer] this procedure are in the results section. COMPREHENSIVE METABOLIC Routine 12/12/2022 7:55 PANEL [facility] PHOSPHORUS LEVEL Routine 12/12/2022 7:55 Results for PM [facility] [employer] this procedure are in the results section. MAGNESIUM LEVEL Routine 12/12/2022 7:55 Results f or [facility] this procedure are in the results section. CKMB Routine 12/12/2022 7:55 Results for PM [facility] [employer] this procedure are in the results section. CREATINE KINASE Routine 12/12/2022 7:55 Results f or [facility] this procedure are in the results section. TROPONIN T Routine 12/12/2022 7:55 Results for PM [facility] this procedure are in the results section. BLOODCULTURE Routine 12/12/2022 7:55 Results for PM [facility] this procedure are in the results section. POC GLUCOSE SCREEN Routine 12/12/2022 7:46 Result s for PM [facility] this procedure are in the results section. 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 HEMATOPATHOLOGY BONE Routine 12/12/2022 9:19 Acute myeloblasti c Results for MARROW DIFFERENTIAL AM [facility] leukemia this pro cedure are in the results section. HEMATOPATHOLOGY BONE Routine 12/12/2022 9:19 Acute myeloblasti c Results for MARROW INTERPRETATION AM [facility] leukemia this p rocedure are in the results section. HP FC MRD AML Routine 12/12/2022 9:18 INTERPRETATION AND AM [facility] REPORT HP CYTOGENETICS BLOOD Routine 12/12/2022 9:18 Res ults for COLLECTION [facility] this procedure are in the results section. HP MOLECULAR BLOOD Routine 12/12/2022 9:18 Result s for COLLECTION [facility] this procedure are in the results section. HP FC FLOW CYTOMETRY Routine 12/12/2022 9:18 Resu lts for BLOOD COLLECTION [facility] this proced ure are in the results section. 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 HP TP53 COLLECTION, Routine 12/12/2022 9:18 Acute myeloblas tic Results for NONBLOOD AM [facility] leukemia this procedure are in the results section. TMP CROSSMATCH Routine 12/12/2022 8:03 Results fo r INTERPRETATION [facility] this procedur e are in the results section. CLOT EXPIRATION DATE Routine 12/12/2022 8:03 Resu lts for AM [facility] [employer] this procedure are in the results section. TMP INTERPRETATION Routine 12/12/2022 8:03 Result s for ANTIBODY SCREEN AM [facility] this procedu re NEGATIVE are in the results section. .GLOMERULAR FILTRATION Routine 12/12/2022 8:03 Acute myeloblas tic Results for RATE AM [facility] leukemia this procedure are in the results section. SERUM CREATININE Routine 12/12/2022 8:03 Acute myeloblastic Re sults for AM [facility] leukemia this procedure are in the results section. ANTIBODY SCREEN Routine 12/12/2022 8:03 Acute myeloblastic Res ults for AM [facility] leukemia this procedure are in the results section. 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 MAGNESIUM LEVEL Routine 12/12/2022 8:03 Acute myeloblastic Res ults for AM [facility] leukemia this procedure are in the results section. ELECTROLYTE PANEL Routine 12/12/2022 8:03 Acute myeloblastic R esults for AM [facility] leukemia this procedure are in the results section. ALANINE Routine 12/12/2022 8:03 Acute myeloblastic Result s for AMINOTRANSFERASE AM [facility] leukemia this proced ure are in the results section. LACTATE DEHYDROGENASE Routine 12/12/2022 8:03 Acute myeloblast ic Results for AM [facility] leukemia this procedure are in the results section. 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 FRACTIONATED BILIRUBIN Routine 12/12/2022 8:03 Acute myeloblas tic Results for AM [facility] leukemia this procedure are in the results section. 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 GLUCOSE, RANDOM Routine 12/12/2022 8:03 Acute myeloblastic Res ults for AM [facility] leukemia this procedure are in the results section. PHOSPHORUS LEVEL Routine 12/12/2022 8:03 Acute myeloblastic Re sults for AM [facility] leukemia this procedure are in the results section. 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 ALBUMIN LEVEL Routine 12/12/2022 8:03 Acute myeloblastic Resul ts for AM [facility] leukemia this procedure are in the results section. TOTAL PROTEIN Routine 12/12/2022 8:03 Acute myeloblastic Resul ts for AM [facility] leukemia this procedure are in the results section. 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 TMP INTERPRETATION Routine 12/11/2022 6:17 Result s for ANTIBODY SCREEN AM [facility] this procedu re NEGATIVE are in the results section. CLOT EXPIRATION DATE Routine 12/11/2022 6:17 Resu lts for AM [facility] this procedure are in the results section. 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 SERUM CREATININE Routine 12/11/2022 6:17 Acute myeloblastic Re sults for AM [facility] leukemia this procedure are in the results section. ANTIBODY SCREEN Routine 12/11/2022 6:17 Acute myeloblastic Res ults for AM [facility] leukemia this procedure are in the results section. 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 MAGNESIUM LEVEL Routine 12/11/2022 6:17 Acute myeloblastic Res ults for AM [facility] leukemia this procedure are in the results section. ELECTROLYTE PANEL Routine 12/11/2022 6:17 Acute myeloblastic R esults for AM [facility] leukemia this procedure are in the results section. ALANINE Routine 12/11/2022 6:17 Acute myeloblastic Result s for AMINOTRANSFERASE AM [facility] leukemia this proced ure are in the results section. 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 FRACTIONATED BILIRUBIN Routine 12/11/2022 6:17 Acute myeloblas tic Results for AM [facility] leukemia this procedure are in the results section. 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 GLUCOSE, RANDOM Routine 12/11/2022 6:17 Acute myeloblastic Res ults for AM [facility] leukemia this procedure are in the results section. PHOSPHORUS LEVEL Routine 12/11/2022 6:17 Acute myeloblastic Re sults for AM [facility] leukemia this procedure are in the results section. 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 ALBUMIN LEVEL Routine 12/11/2022 6:17 Acute myeloblastic Resul ts for AM [facility] leukemia this procedure are in the results section. TOTAL PROTEIN Routine 12/11/2022 6:17 Acute myeloblastic Resul ts for AM [facility] leukemia this procedure are in the results section. 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 SERUM CREATININE Routine 12/10/2022 11:08 Acute myeloblastic R esults for AM [facility] leukemia this procedure are in the results section. 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 POTASSIUM LEVEL Routine 12/10/2022 11:08 Acute myeloblastic Re sults for AM [facility] leukemia this procedure are in the results section. MAGNESIUM LEVEL Routine 12/10/2022 11:08 Acute myeloblastic Re sults for AM [facility] leukemia this procedure are in the results section. .GLOMERULAR FILTRATION Routine 12/09/2022 11:46 Acute myelobla stic Results for RATE AM [facility] leukemia this procedure are in the results section. SERUM CREATININE Routine 12/09/2022 11:46 Acute myeloblastic R esults for AM [facility] leukemia this procedure are in the results section. 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 POTASSIUM LEVEL Routine 12/09/2022 11:46 Acute myeloblastic Re sults for AM [facility] leukemia this procedure are in the results section. MAGNESIUM LEVEL Routine 12/09/2022 11:46 Acute myeloblastic Re sults for AM [facility] leukemia this procedure are in the results section. POC GLUCOSE SCREEN Routine 12/08/2022 1:41 Result s for PM [facility] this procedure are in the results section. POC GLUCOSE SCREEN Routine 12/08/2022 7:52 Result s for AM [facility] this procedure are in the results section. TMP CROSSMATCH Routine 12/08/2022 12:50 Results f or INTERPRETATION AM [facility] this procedur e are in the results section. TMP INTERPRETATION Routine 12/08/2022 12:50 Resul ts for ANTIBODY SCREEN AM [facility] this procedu re NEGATIVE are in the results section. CLOT EXPIRATION DATE Routine 12/08/2022 12:50 Res ults for AM [facility] this procedure are in the results section. FIBRINOGEN ACTIVITY AM 12/08/2022 12:50 Resu lts for AM [facility] this procedure are in the results section. ANION GAP AM 12/08/2022 12:50 Results for AM [facility] this procedure are in the results section. DIFFERENTIAL CANCEL AM 12/08/2022 12:50 Resu lts for AM [facility] this procedure are in the results section. LACTATE DEHYDROGENASE AM 12/08/2022 12:50 Re sults for AM [facility] this procedure are in the results section. Results CBC AM 12/08/2022 12:50 Results for AM [facility] this procedure are in the results section. .GLOMERULAR FILTRATION AM 12/08/2022 12:50 R esults for RATE AM [facility] this procedure are in the results section. SERUM CREATININE AM 12/08/2022 12:50 Results for AM [facility] this procedure are in the results section. ANTIBODY SCREEN Routine 12/08/2022 12:50 Results for AM [facility] this procedure are in the results section. ABORH Routine 12/08/2022 12:50 Results for AM [facility] this procedure are in the results section. COMPLETE BLOOD COUNT W/ AM 12/08/2022 12:50 DIFFERENTIAL AM [facility] PROTHROMBIN TIME AM 12/08/2022 12:50 Results for AM [facility] this procedure are in the results section. APTT AM 12/08/2022 12:50 Results for AM [facility] this procedure are in the results section. ASPARTATE AM 12/08/2022 12:50 Results for AMINOTRANSFERASE AM [facility] this proced ure are in the results section. URIC ACID AM 12/08/2022 12:50 Results for AM [facility] this procedure are in the results section. ALANINE AM 12/08/2022 12:50 Results for AMINOTRANSFERASE AM [facility] this proced ure are in the results section. ALKALINE PHOSPHATASE AM 12/08/2022 12:50 Res ults for AM [facility] this procedure are in the results section. FRACTIONATED BILIRUBIN AM 12/08/2022 12:50 R esults for AM [facility] this procedure are in the results section. PHOSPHORUS LEVEL AM 12/08/2022 12:50 Results for AM [facility] this procedure are in the results section. ALBUMIN LEVEL AM 12/08/2022 12:50 Results fo r AM [facility] this procedure are in the results section. TOTAL PROTEIN AM 12/08/2022 12:50 Results fo r AM [facility] this procedure are in the results section. CARBON DIOXIDE LEVEL AM 12/08/2022 12:50 Res ults for AM [facility] this procedure are in the results section. CHLORIDE LEVEL AM 12/08/2022 12:50 Results f or AM [facility] this procedure are in the results section. MAGNESIUM LEVEL AM 12/08/2022 12:50 Results for AM [facility] this procedure are in the results section. POTASSIUM LEVEL AM 12/08/2022 12:50 Results for AM [facility] this procedure are in the results section. SODIUM LEVEL AM 12/08/2022 12:50 Results for AM [facility] this procedure are in the results section. SERUM CREATININE AM 12/08/2022 12:50 AM [facility] BLOOD UREA NITROGEN AM 12/08/2022 12:50 Resu lts for AM [facility] this procedure are in the results section. CALCIUM LEVEL TOTAL AM 12/08/2022 12:50 Resu lts for AM [facility] this procedure are in the results section. GLUCOSE, RANDOM AM 12/08/2022 12:50 Results for AM [facility] this procedure are in the results section. TYPE AND SCREEN Routine 12/08/2022 12:50 AM [facility] POC GLUCOSE SCREEN Routine 12/07/2022 9:44 Result s for PM [facility] this procedure are in the results section. POTASSIUM LEVEL Timed Study 12/07/2022 5:35 Results f or PM [facility] this procedure are in the results section. POC GLUCOSE SCREEN Routine 12/07/2022 5:28 Result s for PM [facility] this procedure are in the results section. POC GLUCOSE SCREEN Routine 12/07/2022 12:02 Resul ts for PM [facility] this procedure are in the results section. POC GLUCOSE SCREEN Routine 12/07/2022 9:02 Result s for AM [facility] this procedure are in the results section. POC GLUCOSE SCREEN Routine 12/07/2022 4:27 Result s for AM [facility] this procedure are in the results section. POC GLUCOSE SCREEN Routine 12/07/2022 2:56 Result s for AM [facility] this procedure are in the results section. POC GLUCOSE SCREEN Routine 12/07/2022 2:19 Result s for AM [facility] this procedure are in the results section. POC CRITICAL Routine 12/07/2022 2:19 Results for AM [facility] this procedure are in the results section. POC GLUCOSE SCREEN Routine 12/07/2022 2:02 Result s for AM [facility] this procedure are in the results section. POC CRITICAL Routine 12/07/2022 2:02 Results for AM [facility] this procedure are in the results section. LACTATE DEHYDROGENASE AM 12/07/2022 12:42 Re sults for AM [facility] this procedure are in the results section. FIBRINOGEN ACTIVITY AM 12/07/2022 12:42 Resu lts for AM [facility] this procedure are in the results section. ANION GAP AM 12/07/2022 12:42 Results for AM [facility] this procedure are in the results section. MANUAL DIFFERENTIAL AM 12/07/2022 12:42 Resu lts for AM [facility] this procedure are in the results section. Results CBC AM 12/07/2022 12:42 Results for AM [facility] this procedure are in the results section. .GLOMERULAR FILTRATION AM 12/07/2022 12:42 R esults for RATE AM [facility] this procedure are in the results section. SERUM CREATININE AM 12/07/2022 12:42 Results for AM [facility] this procedure are in the results section. COMPLETE BLOOD COUNT W/ AM 12/07/2022 12:42 DIFFERENTIAL AM [facility] PROTHROMBIN TIME AM 12/07/2022 12:42 Results for AM [facility] this procedure are in the results section. APTT AM 12/07/2022 12:42 Results for AM [facility] this procedure are in the results section. ASPARTATE AM 12/07/2022 12:42 Results for AMINOTRANSFERASE AM [facility] this proced ure are in the results section. URIC ACID AM 12/07/2022 12:42 Results for AM [facility] this procedure are in the results section. ALANINE AM 12/07/2022 12:42 Results for AMINOTRANSFERASE AM [facility] this proced ure are in the results section. ALKALINE PHOSPHATASE AM 12/07/2022 12:42 Res ults for AM [facility] this procedure are in the results section. FRACTIONATED BILIRUBIN AM 12/07/2022 12:42 R esults for AM [facility] this procedure are in the results section. PHOSPHORUS LEVEL AM 12/07/2022 12:42 Results for AM [facility] this procedure are in the results section. ALBUMIN LEVEL AM 12/07/2022 12:42 Results fo r AM [facility] this procedure are in the results section. TOTAL PROTEIN AM 12/07/2022 12:42 Results fo r AM [facility] this procedure are in the results section. CARBON DIOXIDE LEVEL AM 12/07/2022 12:42 Res ults for AM [facility] this procedure are in the results section. CHLORIDE LEVEL AM 12/07/2022 12:42 Results f or AM [facility] this procedure are in the results section. MAGNESIUM LEVEL AM 12/07/2022 12:42 Results for AM [facility] this procedure are in the results section. POTASSIUM LEVEL AM 12/07/2022 12:42 Results for AM [facility] this procedure are in the results section. SODIUM LEVEL AM 12/07/2022 12:42 Results for AM [facility] this procedure are in the results section. SERUM CREATININE AM 12/07/2022 12:42 AM [facility] BLOOD UREA NITROGEN AM 12/07/2022 12:42 Resu lts for AM [facility] this procedure are in the results section. CALCIUM LEVEL TOTAL AM 12/07/2022 12:42 Resu lts for AM [facility] this procedure are in the results section. GLUCOSE, RANDOM AM 12/07/2022 12:42 Results for AM [facility] this procedure are in the results section. POC GLUCOSE SCREEN Routine 12/06/2022 9:11 Result s for PM [facility] this procedure are in the results section. POC GLUCOSE SCREEN Routine 12/06/2022 5:34 Result s for PM [facility] this procedure are in the results section. POC GLUCOSE SCREEN Routine 12/06/2022 12:35 Resul ts for PM [facility] this procedure are in the results section. POC GLUCOSE SCREEN Routine 12/06/2022 8:11 Result s for AM [facility] this procedure are in the results section. POSACONAZOLE LEVEL, Routine 12/06/2022 8:02 Resul ts for SERUM AM [facility] this procedure are in the results section. DIFFERENTIAL CANCEL AM 12/06/2022 12:28 Resu lts for AM [facility] this procedure are in the results section. FIBRINOGEN ACTIVITY AM 12/06/2022 12:28 Resu lts for AM [facility] this procedure are in the results section. D DIMER AM 12/06/2022 12:28 Results for AM [facility] this procedure are in the results section. ANION GAP AM 12/06/2022 12:28 Results for AM [facility] this procedure are in the results section. LACTATE DEHYDROGENASE AM 12/06/2022 12:28 Re sults for AM [facility] this procedure are in the results section. Results CBC AM 12/06/2022 12:28 Results for AM [facility] this procedure are in the results section. .GLOMERULAR FILTRATION AM 12/06/2022 12:28 R esults for RATE AM [facility] this procedure are in the results section. SERUM CREATININE AM 12/06/2022 12:28 Results for AM [facility] this procedure are in the results section. COMPLETE BLOOD COUNT W/ AM 12/06/2022 12:28 DIFFERENTIAL AM [facility] PROTHROMBIN TIME AM 12/06/2022 12:28 Results for AM [facility] this procedure are in the results section. APTT AM 12/06/2022 12:28 Results for AM [facility] this procedure are in the results section. ASPARTATE AM 12/06/2022 12:28 Results for AMINOTRANSFERASE AM [facility] this proced ure are in the results section. URIC ACID AM 12/06/2022 12:28 Results for AM [facility] this procedure are in the results section. ALANINE AM 12/06/2022 12:28 Results for AMINOTRANSFERASE AM [facility] this proced ure are in the results section. ALKALINE PHOSPHATASE AM 12/06/2022 12:28 Res ults for AM [facility] this procedure are in the results section. FRACTIONATED BILIRUBIN AM 12/06/2022 12:28 R esults for AM [facility] this procedure are in the results section. PHOSPHORUS LEVEL AM 12/06/2022 12:28 Results for AM [facility] this procedure are in the results section. ALBUMIN LEVEL AM 12/06/2022 12:28 Results fo r AM [facility] this procedure are in the results section. TOTAL PROTEIN AM 12/06/2022 12:28 Results fo r AM [facility] this procedure are in the results section. CARBON DIOXIDE LEVEL AM 12/06/2022 12:28 Res ults for AM [facility] this procedure are in the results section. CHLORIDE LEVEL AM 12/06/2022 12:28 Results f or AM [facility] this procedure are in the results section. MAGNESIUM LEVEL AM 12/06/2022 12:28 Results for AM [facility] this procedure are in the results section. POTASSIUM LEVEL AM 12/06/2022 12:28 Results for AM [facility] this procedure are in the results section. SODIUM LEVEL AM 12/06/2022 12:28 Results for AM [facility] this procedure are in the results section. SERUM CREATININE AM 12/06/2022 12:28 AM [facility] BLOOD UREA NITROGEN AM 12/06/2022 12:28 Resu lts for AM [facility] this procedure are in the results section. CALCIUM LEVEL TOTAL AM 12/06/2022 12:28 Resu lts for AM [facility] this procedure are in the results section. GLUCOSE, RANDOM AM 12/06/2022 12:28 Results for AM [facility] this procedure are in the results section. POC GLUCOSE SCREEN Routine 12/05/2022 9:17 Result s for PM [facility] this procedure are in the results section. POC GLUCOSE SCREEN Routine 12/05/2022 6:28 Result s for PM [facility] this procedure are in the results section. US LIVER Routine 12/05/2022 4:13 Results for PM [facility] this procedure are in the results section. POC GLUCOSE SCREEN Routine 12/05/2022 12:28 Resul ts for PM [facility] this procedure are in the results section. POC GLUCOSE SCREEN Routine 12/05/2022 8:20 Result s for AM [facility] this procedure are in the results section. TMP INTERPRETATION Routine 12/05/2022 1:41 Result s for ANTIBODY SCREEN AM [facility] this procedu re NEGATIVE are in the results section. CLOT EXPIRATION DATE Routine 12/05/2022 1:41 Resu lts for AM [facility] this procedure are in the results section. ANION GAP AM 12/05/2022 1:41 Results for AM [facility] this procedure are in the results section. LACTATE DEHYDROGENASE AM 12/05/2022 1:41 Res ults for AM [facility] this procedure are in the results section. DIFFERENTIAL CANCEL AM 12/05/2022 1:41 Resul ts for AM [facility] this procedure are in the results section. FIBRINOGEN ACTIVITY AM 12/05/2022 1:41 Resul ts for AM [facility] this procedure are in the results section. Results CBC AM 12/05/2022 1:41 Results for AM [facility] this procedure are in the results section. .GLOMERULAR FILTRATION AM 12/05/2022 1:41 Re sults for RATE AM [facility] this procedure are in the results section. SERUM CREATININE AM 12/05/2022 1:41 Results for AM [facility] this procedure are in the results section. ANTIBODY SCREEN Routine 12/05/2022 1:41 Results f or AM [facility] this procedure are in the results section. ABORH Routine 12/05/2022 1:41 Results for AM [facility] this procedure are in the results section. COMPLETE BLOOD COUNT W/ AM 12/05/2022 1:41 DIFFERENTIAL AM [facility] PROTHROMBIN TIME AM 12/05/2022 1:41 Results for AM [facility] this procedure are in the results section. APTT AM 12/05/2022 1:41 Results for AM [facility] this procedure are in the results section. ASPARTATE AM 12/05/2022 1:41 Results for AMINOTRANSFERASE AM [facility] this proced ure are in the results section. URIC ACID AM 12/05/2022 1:41 Results for AM [facility] this procedure are in the results section. ALANINE AM 12/05/2022 1:41 Results for AMINOTRANSFERASE AM [facility] this proced ure are in the results section. ALKALINE PHOSPHATASE AM 12/05/2022 1:41 Resu lts for AM [facility] this procedure are in the results section. FRACTIONATED BILIRUBIN AM 12/05/2022 1:41 Re sults for AM [facility] this procedure are in the results section. PHOSPHORUS LEVEL AM 12/05/2022 1:41 Results for AM [facility] this procedure are in the results section. ALBUMIN LEVEL AM 12/05/2022 1:41 Results for AM [facility] this procedure are in the results section. TOTAL PROTEIN AM 12/05/2022 1:41 Results for AM [facility] this procedure are in the results section. CARBON DIOXIDE LEVEL AM 12/05/2022 1:41 Resu lts for AM [facility] this procedure are in the results section. CHLORIDE LEVEL AM 12/05/2022 1:41 Results fo r AM [facility] this procedure are in the results section. MAGNESIUM LEVEL AM 12/05/2022 1:41 Results f or AM [facility] this procedure are in the results section. POTASSIUM LEVEL AM 12/05/2022 1:41 Results f or AM [facility] this procedure are in the results section. SODIUM LEVEL AM 12/05/2022 1:41 Results for AM [facility] this procedure are in the results section. SERUM CREATININE AM 12/05/2022 1:41 AM [facility] BLOOD UREA NITROGEN AM 12/05/2022 1:41 Resul ts for AM [facility] this procedure are in the results section. CALCIUM LEVEL TOTAL AM 12/05/2022 1:41 Resul ts for AM [facility] this procedure are in the results section. GLUCOSE, RANDOM AM 12/05/2022 1:41 Results f or AM [facility] this procedure are in the results section. TYPE AND SCREEN Routine 12/05/2022 1:41 AM [facility] GASTROINTESTINAL Routine 12/04/2022 9:55 Results for MULTIPLEX PANEL PATH PM [facility] [facility] this pr ocedure REVIEW are in the results section. GASTROINTESTINAL Routine 12/04/2022 9:55 Results for MULTIPLEX PANEL PM [facility] this procedu re are in the results section. POC GLUCOSE SCREEN Routine 12/04/2022 9:23 Result s for PM [facility] this procedure are in the results section. POC GLUCOSE SCREEN Routine 12/04/2022 6:04 Result s for PM [facility] this procedure are in the results section. POC GLUCOSE SCREEN Routine 12/04/2022 12:27 Resul ts for PM [facility] this procedure are in the results section. POC GLUCOSE SCREEN Routine 12/04/2022 8:37 Result s for AM [facility] this procedure are in the results section. POC GLUCOSE SCREEN Routine 12/04/2022 8:03 Result s for AM [facility] this procedure are in the results section. DIFFERENTIAL CANCEL AM 12/04/2022 3:57 Resul ts for AM [facility] this procedure are in the results section. FIBRINOGEN ACTIVITY AM 12/04/2022 3:57 Resul ts for AM [facility] this procedure are in the results section. ANION GAP AM 12/04/2022 3:57 Results for AM [facility] this procedure are in the results section. Results CBC AM 12/04/2022 3:57 Results for AM [facility] this procedure are in the results section. .GLOMERULAR FILTRATION AM 12/04/2022 3:57 Re sults for RATE AM [facility] this procedure are in the results section. SERUM CREATININE AM 12/04/2022 3:57 Results for AM [facility] this procedure are in the results section. COMPLETE BLOOD COUNT W/ AM 12/04/2022 3:57 DIFFERENTIAL AM [facility] PROTHROMBIN TIME AM 12/04/2022 3:57 Results for AM [facility] this procedure are in the results section. APTT AM 12/04/2022 3:57 Results for AM [facility] this procedure are in the results section. ASPARTATE AM 12/04/2022 3:57 Results for AMINOTRANSFERASE AM [facility] this proced ure are in the results section. LACTATE DEHYDROGENASE AM 12/04/2022 3:57 Res ults for AM [facility] this procedure are in the results section. URIC ACID AM 12/04/2022 3:57 Results for AM [facility] this procedure are in the results section. ALANINE AM 12/04/2022 3:57 Results for AMINOTRANSFERASE AM [facility] this proced ure are in the results section. ALKALINE PHOSPHATASE AM 12/04/2022 3:57 Resu lts for AM [facility] this procedure are in the results section. FRACTIONATED BILIRUBIN AM 12/04/2022 3:57 Re sults for AM [facility] this procedure are in the results section. PHOSPHORUS LEVEL AM 12/04/2022 3:57 Results for AM [facility] this procedure are in the results section. ALBUMIN LEVEL AM 12/04/2022 3:57 Results for AM [facility] this procedure are in the results section. TOTAL PROTEIN AM 12/04/2022 3:57 Results for AM [facility] this procedure are in the results section. CARBON DIOXIDE LEVEL AM 12/04/2022 3:57 Resu lts for AM [facility] this procedure are in the results section. CHLORIDE LEVEL AM 12/04/2022 3:57 Results fo r AM [facility] this procedure are in the results section. MAGNESIUM LEVEL AM 12/04/2022 3:57 Results f or AM [facility] this procedure are in the results section. POTASSIUM LEVEL AM 12/04/2022 3:57 Results f or AM [facility] this procedure are in the results section. SODIUM LEVEL AM 12/04/2022 3:57 Results for AM [facility] this procedure are in the results section. SERUM CREATININE AM 12/04/2022 3:57 AM [facility] BLOOD UREA NITROGEN AM 12/04/2022 3:57 Resul ts for AM [facility] this procedure are in the results section. CALCIUM LEVEL TOTAL AM 12/04/2022 3:57 Resul ts for AM [facility] this procedure are in the results section. GLUCOSE, RANDOM AM 12/04/2022 3:57 Results f or AM [facility] this procedure are in the results section. POC GLUCOSE SCREEN Routine 12/03/2022 10:36 Resul ts for PM [facility] this procedure are in the results section. CT CHEST WO CONTRAST STAT 12/03/2022 10:29 Res ults for PM [facility] this procedure are in the results section. POC GLUCOSE SCREEN Routine 12/03/2022 6:31 Result s for PM [facility] this procedure are in the results section. POC GLUCOSE SCREEN Routine 12/03/2022 1:18 Result s for PM [facility] this procedure are in the results section. US RENAL Routine 12/03/2022 8:50 Results for AM [facility] this procedure are in the results section. POC GLUCOSE SCREEN Routine 12/03/2022 8:12 Result s for AM [facility] this procedure are in the results section. DIFFERENTIAL CANCEL AM 12/03/2022 2:36 Resul ts for AM [facility] this procedure are in the results section. ANION GAP AM 12/03/2022 2:36 Results for AM [facility] this procedure are in the results section. APTT Routine 12/03/2022 2:36 Results for AM [facility] this procedure are in the results section. PROTHROMBIN TIME Routine 12/03/2022 2:36 Results for AM [facility] this procedure are in the results section. Results CBC AM 12/03/2022 2:36 Results for AM [facility] this procedure are in the results section. .GLOMERULAR FILTRATION AM 12/03/2022 2:36 Re sults for RATE AM [facility] this procedure are in the results section. SERUM CREATININE AM 12/03/2022 2:36 Results for AM [facility] this procedure are in the results section. FIBRINOGEN ACTIVITY Routine 12/03/2022 2:36 Resul ts for AM [facility] this procedure are in the results section. COMPLETE BLOOD COUNT W/ AM 12/03/2022 2:36 DIFFERENTIAL AM [facility] ASPARTATE AM 12/03/2022 2:36 Results for AMINOTRANSFERASE AM [facility] this proced ure are in the results section. D DIMER Routine 12/03/2022 2:36 Results for AM [facility] this procedure are in the results section. LACTATE DEHYDROGENASE AM 12/03/2022 2:36 Res ults for AM [facility] this procedure are in the results section. URIC ACID AM 12/03/2022 2:36 Results for AM [facility] this procedure are in the results section. ALANINE AM 12/03/2022 2:36 Results for AMINOTRANSFERASE AM [facility] this proced ure are in the results section. ALKALINE PHOSPHATASE AM 12/03/2022 2:36 Resu lts for AM [facility] this procedure are in the results section. FRACTIONATED BILIRUBIN AM 12/03/2022 2:36 Re sults for AM [facility] this procedure are in the results section. PHOSPHORUS LEVEL AM 12/03/2022 2:36 Results for AM [facility] this procedure are in the results section. ALBUMIN LEVEL AM 12/03/2022 2:36 Results for AM [facility] this procedure are in the results section. TOTAL PROTEIN AM 12/03/2022 2:36 Results for AM [facility] this procedure are in the results section. CARBON DIOXIDE LEVEL AM 12/03/2022 2:36 Resu lts for AM [facility] this procedure are in the results section. CHLORIDE LEVEL AM 12/03/2022 2:36 Results fo r AM [facility] this procedure are in the results section. MAGNESIUM LEVEL AM 12/03/2022 2:36 Results f or AM [facility] this procedure are in the results section. POTASSIUM LEVEL AM 12/03/2022 2:36 Results f or AM [facility] this procedure are in the results section. SODIUM LEVEL AM 12/03/2022 2:36 Results for AM [facility] this procedure are in the results section. SERUM CREATININE AM 12/03/2022 2:36 AM [facility] BLOOD UREA NITROGEN AM 12/03/2022 2:36 Resul ts for AM [facility] this procedure are in the results section. CALCIUM LEVEL TOTAL AM 12/03/2022 2:36 Resul ts for AM [facility] this procedure are in the results section. GLUCOSE, RANDOM AM 12/03/2022 2:36 Results f or AM [facility] this procedure are in the results section. LOWER RESPIRATORY Routine 12/03/2022 2:36 Results for CULTURE W/ GRAM STAIN AM [facility] this p rocedure are in the results section. POC GLUCOSE SCREEN Routine 12/02/2022 9:43 Result s for PM [facility] this procedure are in the results section. POC GLUCOSE SCREEN Routine 12/02/2022 6:59 Result s for PM [facility] this procedure are in the results section. TRANSFUSE RED BLOOD Routine 12/02/2022 4:30 CELLS PM [facility] C DIFFICILE DNA ASSAY Routine 12/02/2022 4:14 Res ults for PATH REVIEW PM [facility] this procedure are in the results section. C DIFFICILE DNA ASSAY Routine 12/02/2022 4:14 Res ults for PM [facility] this procedure are in the results section. POC GLUCOSE SCREEN Routine 12/02/2022 3:54 Result s for PM [facility] this procedure are in the results section. POTASSIUM LEVEL Routine 12/02/2022 3:24 Results f or PM [facility] this procedure are in the results section. POC GLUCOSE SCREEN Routine 12/02/2022 12:54 Resul ts for PM [facility] this procedure are in the results section. US LEG VENOUS DOPPLER Routine 12/02/2022 11:24 Re sults for BILATERAL AM [facility] this procedure are in the results section. CT CHEST WO CONTRAST Routine 12/02/2022 10:20 Res ults for AM [facility] this procedure are in the results section. POC GLUCOSE SCREEN Routine 12/02/2022 8:43 Result s for AM [facility] this procedure are in the results section. TRANSFUSE RED BLOOD Routine 12/02/2022 5:47 CELLS AM [facility] PHOSPHORUS LEVEL STAT 12/02/2022 4:36 Results for AM [facility] this procedure are in the results section. MAGNESIUM LEVEL STAT 12/02/2022 4:36 Results f or AM [facility] this procedure are in the results section. BLOOD UREA NITROGEN STAT 12/02/2022 4:36 Resul ts for AM [facility] this procedure are in the results section. CALCIUM IONIZED, VENOUS STAT 12/02/2022 4:36 R esults for AM [facility] this procedure are in the results section. .GLOMERULAR FILTRATION STAT 12/02/2022 4:36 Re sults for RATE AM [facility] this procedure are in the results section. SERUM CREATININE STAT 12/02/2022 4:36 Results for AM [facility] this procedure are in the results section. ELECTROLYTE PANEL STAT 12/02/2022 4:36 Results for AM [facility] this procedure are in the results section. GLUCOSE LEVEL STAT 12/02/2022 4:36 Results for AM [facility] this procedure are in the results section. BASIC METABOLIC PANEL, STAT 12/02/2022 4:36 CALCIUM IONIZED AM [facility] POC GLUCOSE SCREEN Routine 12/02/2022 4:28 Result s for AM [facility] this procedure are in the results section. PRBC PRODUCT READY FOR Routine 12/02/2022 4:05 Re sults for BOX CAR CHECKER AM [facility] this procedure are in the results section. PREPARE RBC Routine 12/02/2022 4:05 Results for AM [facility] this procedure are in the results section. PROTHROMBIN TIME Routine 12/02/2022 2:30 Results for AM [facility] this procedure are in the results section. APTT Routine 12/02/2022 2:30 Results for AM [facility] this procedure are in the results section. DIFFERENTIAL CANCEL AM 12/02/2022 2:30 Resul ts for AM [facility] this procedure are in the results section. ANION GAP AM 12/02/2022 2:30 Results for AM [facility] this procedure are in the results section. Results CBC AM 12/02/2022 2:30 Results for AM [facility] this procedure are in the results section. .GLOMERULAR FILTRATION AM 12/02/2022 2:30 Re sults for RATE AM [facility] this procedure are in the results section. SERUM CREATININE AM 12/02/2022 2:30 Results for AM [facility] this procedure are in the results section. FIBRINOGEN ACTIVITY Routine 12/02/2022 2:30 Resul ts for AM [facility] this procedure are in the results section. COMPLETE BLOOD COUNT W/ AM 12/02/2022 2:30 DIFFERENTIAL AM [facility] ASPARTATE AM 12/02/2022 2:30 Results for AMINOTRANSFERASE AM [facility] this proced ure are in the results section. LACTATE DEHYDROGENASE AM 12/02/2022 2:30 Res ults for AM [facility] this procedure are in the results section. URIC ACID AM 12/02/2022 2:30 Results for AM [facility] this procedure are in the results section. ALANINE AM 12/02/2022 2:30 Results for AMINOTRANSFERASE AM [facility] this proced ure are in the results section. ALKALINE PHOSPHATASE AM 12/02/2022 2:30 Resu lts for AM [facility] this procedure are in the results section. FRACTIONATED BILIRUBIN AM 12/02/2022 2:30 Re sults for AM [facility] this procedure are in the results section. PHOSPHORUS LEVEL AM 12/02/2022 2:30 Results for AM [facility] this procedure are in the results section. ALBUMIN LEVEL AM 12/02/2022 2:30 Results for AM [facility] this procedure are in the results section. TOTAL PROTEIN AM 12/02/2022 2:30 Results for AM [facility] this procedure are in the results section. CARBON DIOXIDE LEVEL AM 12/02/2022 2:30 Resu lts for AM [facility] this procedure are in the results section. CHLORIDE LEVEL AM 12/02/2022 2:30 Results fo r AM [facility] this procedure are in the results section. MAGNESIUM LEVEL AM 12/02/2022 2:30 Results f or AM [facility] this procedure are in the results section. POTASSIUM LEVEL AM 12/02/2022 2:30 Results f or AM [facility] this procedure are in the results section. SODIUM LEVEL AM 12/02/2022 2:30 Results for AM [facility] this procedure are in the results section. SERUM CREATININE AM 12/02/2022 2:30 AM [facility] BLOOD UREA NITROGEN AM 12/02/2022 2:30 Resul ts for AM [facility] this procedure are in the results section. CALCIUM LEVEL TOTAL AM 12/02/2022 2:30 Resul ts for AM [facility] this procedure are in the results section. GLUCOSE, RANDOM AM 12/02/2022 2:30 Results f or AM [facility] this procedure are in the results section. POC GLUCOSE SCREEN Routine 12/01/2022 9:37 Result s for PM [facility] this procedure are in the results section. POC GLUCOSE SCREEN Routine 12/01/2022 6:33 Result s for PM [facility] this procedure are in the results section. RESPIRATORY VIRAL Routine 12/01/2022 5:42 Results for MULTIPLEX PCR PANEL, PM [facility] this pr ocedure NASOPHARYNGEAL SWAB are in t he results section. POC GLUCOSE SCREEN Routine 12/01/2022 1:08 Result s for PM [facility] this procedure are in the results section. HP FC MRD AML Routine 12/01/2022 12:43 INTERPRETATION AND PM [facility] REPORT HP MOLECULAR BLOOD Routine 12/01/2022 12:43 Resul ts for COLLECTION PM [facility] this procedure are in the results section. HP CG CHROMOSOME Routine 12/01/2022 12:43 ANALYSIS INTERPRETATION PM [facility] AND REPORT HP CYTOGENETICS BLOOD Routine 12/01/2022 12:43 Re sults for COLLECTION PM [facility] this procedure are in the results section. HP FC FLOW CYTOMETRY Routine 12/01/2022 12:43 Res ults for BLOOD COLLECTION PM [facility] this proced ure are in the results section. HP MD TP53 COLLECTION, Routine 12/01/2022 12:43 R esults for NONBLOOD PM [facility] this procedure are in the results section. HP CG CHROMOSOME Routine 12/01/2022 12:43 Results for ANALYSIS COLLECTION, PM [facility] this pr ocedure NONBLOOD are in the results section. 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 TMP CROSSMATCH Routine 12/01/2022 12:13 Results f or INTERPRETATION PM [facility] this procedur e are in the results section. TMP INTERPRETATION Routine 12/01/2022 12:13 Resul ts for MANUAL ANTIBODY SCREEN PM [facility] this procedure NEGATIVE are in the results section. CLOT EXPIRATION DATE Routine 12/01/2022 12:13 Res ults for PM [facility] this procedure are in the results section. ANTIBODY SCREEN MANUAL Routine 12/01/2022 12:13 R esults for PM [facility] this procedure are in the results section. ABORH MANUAL Routine 12/01/2022 12:13 Results for PM [facility] this procedure are in the results section. TRANSFUSION RXN CULTURE STAT 12/01/2022 11:46 Results for AM [facility] this procedure are in the results section. URINALYSIS WITH Routine 12/01/2022 11:41 Results for MICROSCOPIC IF AM [facility] this procedur e INDICATED are in the results section. TMP TRANSFUSION STAT 12/01/2022 11:01 Results for REACTION INTERPRETATION AM [facility] this procedure are in the results section. TRANSFUSION REACTION STAT 12/01/2022 11:01 Res ults for AM [facility] this procedure are in the results section. POC GLUCOSE SCREEN Routine 12/01/2022 8:34 Result s for AM [facility] this procedure are in the results section. TRANSFUSE RED BLOOD Routine 12/01/2022 5:54 CELLS AM [facility] PRBC PRODUCT READY FOR Routine 12/01/2022 2:09 Re sults for BOX CAR CHECKER AM [facility] this procedure are in the results section. PREPARE RBC Routine 12/01/2022 2:09 Results for AM [facility] this procedure are in the results section. DIFFERENTIAL CANCEL AM 12/01/2022 12:41 Resu lts for AM [facility] this procedure are in the results section. ANION GAP AM 12/01/2022 12:41 Results for AM [facility] this procedure are in the results section. FIBRINOGEN ACTIVITY AM 12/01/2022 12:41 Resu lts for AM [facility] this procedure are in the results section. Results CBC AM 12/01/2022 12:41 Results for AM [facility] this procedure are in the results section. .GLOMERULAR FILTRATION AM 12/01/2022 12:41 R esults for RATE AM [facility] this procedure are in the results section. SERUM CREATININE AM 12/01/2022 12:41 Results for AM [facility] this procedure are in the results section. COMPLETE BLOOD COUNT W/ AM 12/01/2022 12:41 DIFFERENTIAL AM [facility] PROTHROMBIN TIME AM 12/01/2022 12:41 Results for AM [facility] this procedure are in the results section. APTT AM 12/01/2022 12:41 Results for AM [facility] this procedure are in the results section. ASPARTATE AM 12/01/2022 12:41 Results for AMINOTRANSFERASE AM [facility] this proced ure are in the results section. LACTATE DEHYDROGENASE AM 12/01/2022 12:41 Re sults for AM [facility] this procedure are in the results section. URIC ACID AM 12/01/2022 12:41 Results for AM [facility] this procedure are in the results section. ALANINE AM 12/01/2022 12:41 Results for AMINOTRANSFERASE AM [facility] this proced ure are in the results section. ALKALINE PHOSPHATASE AM 12/01/2022 12:41 Res ults for AM [facility] this procedure are in the results section. FRACTIONATED BILIRUBIN AM 12/01/2022 12:41 R esults for AM [facility] this procedure are in the results section. PHOSPHORUS LEVEL AM 12/01/2022 12:41 Results for AM [facility] this procedure are in the results section. ALBUMIN LEVEL AM 12/01/2022 12:41 Results fo r AM [facility] this procedure are in the results section. TOTAL PROTEIN AM 12/01/2022 12:41 Results fo r AM [facility] this procedure are in the results section. CARBON DIOXIDE LEVEL AM 12/01/2022 12:41 Res ults for AM [facility] this procedure are in the results section. CHLORIDE LEVEL AM 12/01/2022 12:41 Results f or AM [facility] this procedure are in the results section. MAGNESIUM LEVEL AM 12/01/2022 12:41 Results for AM [facility] this procedure are in the results section. POTASSIUM LEVEL AM 12/01/2022 12:41 Results for AM [facility] this procedure are in the results section. SODIUM LEVEL AM 12/01/2022 12:41 Results for AM [facility] this procedure are in the results section. SERUM CREATININE AM 12/01/2022 12:41 AM [facility] BLOOD UREA NITROGEN AM 12/01/2022 12:41 Resu lts for AM [facility] this procedure are in the results section. CALCIUM LEVEL TOTAL AM 12/01/2022 12:41 Resu lts for AM [facility] this procedure are in the results section. GLUCOSE, RANDOM AM 12/01/2022 12:41 Results for AM [facility] this procedure are in the results section. PERIPHERAL SMEAR FOR Routine 12/01/2022 12:41 Res ults for BONE MARROW [facility] this procedure are in the results section. LOWER RESPIRATORY Routine 11/30/2022 10:40 Result s for CULTURE W/ GRAM STAIN PM [facility] this p rocedure are in the results section. POC GLUCOSE SCREEN Routine 11/30/2022 9:24 Result s for PM [facility] this procedure are in the results section. US TESTICULAR DOPPLER Routine 11/30/2022 7:33 Res ults for PM [facility] this procedure are in the results section. US SCROTUM/TESTICULAR Routine 11/30/2022 7:33 Res ults for PM [facility] this procedure are in the results section. POC GLUCOSE SCREEN Routine 11/30/2022 5:59 Result s for PM [facility] this procedure are in the results section. POTASSIUM LEVEL Routine 11/30/2022 5:45 Results f or PM [facility] this procedure are in the results section. VZV QPCR, PLASMA Routine 11/30/2022 5:45 Results for PM [facility] this procedure are in the results section. HSV 1 & 2 QUANTITATIVE, Routine 11/30/2022 5:45 R esults for PLASMA PM [facility] this procedure are in the results section. HSV/VZV DNA DETECTION Routine 11/30/2022 3:29 Res ults for PM [facility] this procedure are in the results section. POC GLUCOSE SCREEN Routine 11/30/2022 1:23 Result s for PM [facility] this procedure are in the results section. TMP CROSSMATCH STAT 11/30/2022 12:21 Results f or INTERPRETATION PM [facility] this procedur e are in the results section. TMP INTERPRETATION STAT 11/30/2022 12:21 Resul ts for MANUAL ANTIBODY SCREEN PM [facility] this procedure NEGATIVE are in the results section. CLOT EXPIRATION DATE STAT 11/30/2022 12:21 Res ults for PM [facility] this procedure are in the results section. ABORH MANUAL STAT 11/30/2022 12:21 Results for PM [facility] this procedure are in the results section. ANTIBODY SCREEN MANUAL STAT 11/30/2022 12:21 R esults for PM [facility] this procedure are in the results section. TRANSFUSION RXN CULTURE STAT 11/30/2022 12:06 Results for PM [facility] this procedure are in the results section. URINALYSIS WITH Routine 11/30/2022 11:19 Results for MICROSCOPIC IF AM [facility] this procedur e INDICATED are in the results section. TMP TRANSFUSION STAT 11/30/2022 11:04 Results for REACTION INTERPRETATION AM [facility] this procedure are in the results section. TRANSFUSION REACTION STAT 11/30/2022 11:04 Res ults for AM [facility] this procedure are in the results section. BLOODCULTURE Routine 11/30/2022 11:04 Results for AM [facility] this procedure are in the results section. POC GLUCOSE SCREEN Routine 11/30/2022 10:10 Resul ts for AM [facility] this procedure are in the results section. POC GLUCOSE SCREEN Routine 11/30/2022 8:11 Result s for AM [facility] this procedure are in the results section. TRANSFUSE RED BLOOD Routine 11/30/2022 7:40 CELLS AM [facility] PRBC PRODUCT READY FOR Routine 11/30/2022 3:28 Re sults for BOX CAR CHECKER AM [facility] this procedure are in the results section. PREPARE RBC Routine 11/30/2022 3:28 Results for AM [facility] this procedure are in the results section. APTT Routine 11/30/2022 1:42 Results for AM [facility] this procedure are in the results section. PROTHROMBIN TIME Routine 11/30/2022 1:42 Results for AM [facility] this procedure are in the results section. DIFFERENTIAL CANCEL AM 11/30/2022 1:42 Resul ts for AM [facility] this procedure are in the results section. ANION GAP AM 11/30/2022 1:42 Results for AM [facility] this procedure are in the results section. Results CBC AM 11/30/2022 1:42 Results for AM [facility] this procedure are in the results section. .GLOMERULAR FILTRATION AM 11/30/2022 1:42 Re sults for RATE AM [facility] this procedure are in the results section. SERUM CREATININE AM 11/30/2022 1:42 Results for AM [facility] this procedure are in the results section. FIBRINOGEN ACTIVITY Routine 11/30/2022 1:42 Resul ts for AM [facility] this procedure are in the results section. COMPLETE BLOOD COUNT W/ AM 11/30/2022 1:42 DIFFERENTIAL AM [facility] ASPARTATE AM 11/30/2022 1:42 Results for AMINOTRANSFERASE AM [facility] this proced ure are in the results section. D DIMER Routine 11/30/2022 1:42 Results for AM [facility] this procedure are in the results section. LACTATE DEHYDROGENASE AM 11/30/2022 1:42 Res ults for AM [facility] this procedure are in the results section. URIC ACID AM 11/30/2022 1:42 Results for AM [facility] this procedure are in the results section. ALANINE AM 11/30/2022 1:42 Results for AMINOTRANSFERASE AM [facility] this proced ure are in the results section. ALKALINE PHOSPHATASE AM 11/30/2022 1:42 Resu lts for AM [facility] this procedure are in the results section. FRACTIONATED BILIRUBIN AM 11/30/2022 1:42 Re sults for AM [employer] this procedure are in the results section. PHOSPHORUS LEVEL AM 11/30/2022 1:42 Results for AM [employer] this procedure are in the results section. ALBUMIN LEVEL AM 11/30/2022 1:42 Results for AM [employer] this procedure are in the results section. TOTAL PROTEIN AM 11/30/2022 1:42 Results for AM [employer] this procedure are in the results section. CARBON DIOXIDE LEVEL AM 11/30/2022 1:42 Resu lts for AM [employer] this procedure are in the results section. CHLORIDE LEVEL AM 11/30/2022 1:42 Results fo r [facility] [employer] [employer] this procedure are in the results section. MAGNESIUM LEVEL AM 11/30/2022 1:42 Results f or AM [employer] [employer] this procedure are in the results section. POTASSIUM LEVEL AM 11/30/2022 1:42 Results f or [facility] [employer] [employer] this procedure are in the results section. SODIUM LEVEL AM 11/30/2022 1:42 Results for AM [employer] this procedure are in the results section. SERUM CREATININE AM 11/30/2022 1:42 AM [facility] BLOOD UREA NITROGEN AM 11/30/2022 1:42 Resul ts for AM [employer] this procedure are in the results section. CALCIUM LEVEL TOTAL AM 11/30/2022 1:42 Resul ts for AM [employer] this procedure are in the results section. GLUCOSE, RANDOM AM 11/30/2022 1:42 Results f or [facility] [employer] [employer] this procedure are in the results section. POC GLUCOSE SCREEN Routine 11/29/2022 9:18 Result s for PM [employer] this procedure are in the results section. POC GLUCOSE SCREEN Routine 11/29/2022 6:11 Result s for PM [employer] this procedure are in the results section. COVID-19 (SARS-COV-2) Routine 11/29/2022 5:15 Res ults for PCR-ASYMPTOMATIC MC [facility] [employer] this pro cedure are in the results section. TRANSFUSE PLATELETS Routine 11/29/2022 5:05 [facility] [employer] POC GLUCOSE SCREEN Routine 11/29/2022 4:03 Result s for PM [employer] this procedure are in the results section. BLOODCULTURE STAT 11/29/2022 3:00 Results for PM [employer] this procedure are in the results section. PLT PRODUCT READY FOR Routine 11/29/2022 12:19 Re sults for BOX CAR CHECKER [facility] [employer] this procedure are in the results section. PREPARE PLATELETS Routine 11/29/2022 12:19 Result s for PM [employer] this procedure are in the results section. XR CHEST 1 VW Routine 11/29/2022 10:36 Results fo r [facility] [employer] this procedure are in the results section. POC GLUCOSE SCREEN Routine 11/29/2022 8:39 Result s for AM [employer] this procedure are in the results section. TMP CROSSMATCH Routine 11/29/2022 1:39 Results fo r INTERPRETATION [facility] this procedur e are in the results section. TMP INTERPRETATION Routine 11/29/2022 1:39 Result s for ANTIBODY SCREEN [facility] [employer] this procedu re NEGATIVE are in the results section. CLOT EXPIRATION DATE Routine 11/29/2022 1:39 Resu lts for AM [employer] this procedure are in the results section. DIFFERENTIAL CANCEL AM 11/29/2022 1:39 Resul ts for AM [employer] this procedure are in the results section. ANION GAP AM 11/29/2022 1:39 Results for AM [employer] this procedure are in the results section. FIBRINOGEN ACTIVITY AM 11/29/2022 1:39 Resul ts for AM [employer] this procedure are in the results section. Results CBC AM 11/29/2022 1:39 Results for AM [employer] this procedure are in the results section. .GLOMERULAR FILTRATION AM 11/29/2022 1:39 Re sults for RATE [facility] [employer] this procedure are in the results section. SERUM CREATININE AM 11/29/2022 1:39 Results for AM [employer] this procedure are in the results section. ANTIBODY SCREEN Routine 11/29/2022 1:39 Results f or [facility] [employer] this procedure are in the results section. ABORH Routine 11/29/2022 1:39 Results for AM [employer] this procedure are in the results section. COMPLETE BLOOD COUNT W/ AM 11/29/2022 1:39 DIFFERENTIAL AM [facility] PROTHROMBIN TIME AM 11/29/2022 1:39 Results for AM [employer] this procedure are in the results section. APTT AM 11/29/2022 1:39 Results for AM [employer] this procedure are in the results section. ASPARTATE AM 11/29/2022 1:39 Results for AMINOTRANSFERASE [facility] this proced ure are in the results section. LACTATE DEHYDROGENASE AM 11/29/2022 1:39 Res ults for AM [employer] this procedure are in the results section. URIC ACID AM 11/29/2022 1:39 Results for AM [employer] this procedure are in the results section. ALANINE AM 11/29/2022 1:39 Results for AMINOTRANSFERASE [facility] [employer] this proced ure are in the results section. ALKALINE PHOSPHATASE AM 11/29/2022 1:39 Resu lts for AM [employer] this procedure are in the results section. FRACTIONATED BILIRUBIN AM 11/29/2022 1:39 Re sults for AM [employer] this procedure are in the results section. PHOSPHORUS LEVEL AM 11/29/2022 1:39 Results for AM [employer] this procedure are in the results section. ALBUMIN LEVEL AM 11/29/2022 1:39 Results for AM [employer] this procedure are in the results section. TOTAL PROTEIN AM 11/29/2022 1:39 Results for AM [employer] this procedure are in the results section. CARBON DIOXIDE LEVEL AM 11/29/2022 1:39 Resu lts for AM [employer] this procedure are in the results section. CHLORIDE LEVEL AM 11/29/2022 1:39 Results fo r [facility] [employer] this procedure are in the results section. MAGNESIUM LEVEL AM 11/29/2022 1:39 Results f or AM [employer] this procedure are in the results section. POTASSIUM LEVEL AM 11/29/2022 1:39 Results f or AM [employer] this procedure are in the results section. SODIUM LEVEL AM 11/29/2022 1:39 Results for AM [employer] this procedure are in the results section. SERUM CREATININE AM 11/29/2022 1:39 AM [employer] [employer] BLOOD UREA NITROGEN AM 11/29/2022 1:39 Resul ts for AM [employer] this procedure are in the results section. CALCIUM LEVEL TOTAL AM 11/29/2022 1:39 Resul ts for AM [employer] this procedure are in the results section. GLUCOSE, RANDOM AM 11/29/2022 1:39 Results f or [facility] [employer] this procedure are in the results section. TYPE AND SCREEN Routine 11/29/2022 1:39 [facility] [employer] [employer] POC GLUCOSE SCREEN Routine 11/28/2022 8:55 Result s for PM [employer] this procedure are in the results section. POC GLUCOSE SCREEN Routine 11/28/2022 7:22 Result s for PM [employer] this procedure are in the results section. POC GLUCOSE SCREEN Routine 11/28/2022 6:08 Result s for PM [employer] this procedure are in the results section. GENERAL LABORATORY ADD STAT 11/28/2022 1:47 Re sults for ON TEST [facility] [employer] this procedure are in the results section. POC GLUCOSE SCREEN Routine 11/28/2022 1:27 Result s for PM [employer] this procedure are in the results section. URINE CULTURE Routine 11/28/2022 9:59 Results for AM [employer] this procedure are in the results section. POC GLUCOSE SCREEN Routine 11/28/2022 8:39 Result s for AM [employer] this procedure are in the results section. DIFFERENTIAL CANCEL AM 11/28/2022 2:11 Resul ts for AM [employer] this procedure are in the results section. ANION GAP AM 11/28/2022 2:11 Results for AM [employer] this procedure are in the results section. Results CBC AM 11/28/2022 2:11 Results for AM [employer] this procedure are in the results section. .GLOMERULAR FILTRATION AM 11/28/2022 2:11 Re sults for RATE [facility] [employer] this procedure are in the results section. SERUM CREATININE AM 11/28/2022 2:11 Results for AM [employer] this procedure are in the results section. COMPLETE BLOOD COUNT W/ AM 11/28/2022 2:11 DIFFERENTIAL AM [employer] ASPARTATE AM 11/28/2022 2:11 Results for AMINOTRANSFERASE AM [employer] this proced ure are in the results section. LACTATE DEHYDROGENASE AM 11/28/2022 2:11 Res ults for AM [employer] this procedure are in the results section. URIC ACID AM 11/28/2022 2:11 Results for AM [employer] this procedure are in the results section. ALANINE AM 11/28/2022 2:11 Results for AMINOTRANSFERASE AM [employer] this proced ure are in the results section. ALKALINE PHOSPHATASE AM 11/28/2022 2:11 Resu lts for AM [employer] this procedure are in the results section. FRACTIONATED BILIRUBIN AM 11/28/2022 2:11 Re sults for AM [employer] this procedure are in the results section. PHOSPHORUS LEVEL AM 11/28/2022 2:11 Results for AM [employer] this procedure are in the results section. ALBUMIN LEVEL AM 11/28/2022 2:11 Results for AM [employer] this procedure are in the results section. TOTAL PROTEIN AM 11/28/2022 2:11 Results for AM [employer] this procedure are in the results section. CARBON DIOXIDE LEVEL AM 11/28/2022 2:11 Resu lts for AM [employer] this procedure are in the results section. CHLORIDE LEVEL AM 11/28/2022 2:11 Results fo r [facility] [employer] this procedure are in the results section. MAGNESIUM LEVEL AM 11/28/2022 2:11 Results f or [facility] [employer] this procedure are in the results section. POTASSIUM LEVEL AM 11/28/2022 2:11 Results f or [facility] [employer] this procedure are in the results section. SODIUM LEVEL AM 11/28/2022 2:11 Results for AM [employer] this procedure are in the results section. SERUM CREATININE AM 11/28/2022 2:11 AM [facility] [employer] BLOOD UREA NITROGEN AM 11/28/2022 2:11 Resul ts for AM [employer] this procedure are in the results section. CALCIUM LEVEL TOTAL AM 11/28/2022 2:11 Resul ts for AM [employer] this procedure are in the results section. GLUCOSE, RANDOM AM 11/28/2022 2:11 Results f or [facility] [employer] this procedure are in the results section. FIBRINOGEN ACTIVITY Routine 11/28/2022 2:11 Resul ts for AM [employer] this procedure are in the results section. D DIMER Routine 11/28/2022 2:11 Results for AM [employer] this procedure are in the results section. PROTHROMBIN TIME Routine 11/28/2022 2:11 Results for AM [employer] this procedure are in the results section. PROTHROMBIN TIME AM 11/28/2022 2:06 Results for AM [employer] this procedure are in the results section. APTT AM 11/28/2022 2:06 Results for AM [employer] this procedure are in the results section. POC GLUCOSE SCREEN Routine 11/27/2022 9:49 Result s for PM [employer] this procedure are in the results section. POC GLUCOSE SCREEN Routine 11/27/2022 6:05 Result s for PM [employer] this procedure are in the results section. 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 .CSF DIFF PATH REVIEW Routine 11/27/2022 2:25 Res ults for PM [employer] this procedure are in the results section. 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 PREPARE PLATELETS Routine 11/27/2022 1:17 Results for PM [employer] this procedure are in the results section. POC GLUCOSE SCREEN Routine 11/27/2022 12:29 Resul ts for PM [employer] this procedure are in the results section. GENERAL LABORATORY ADD STAT 11/27/2022 9:37 Re sults for ON TEST AM [facility] [employer] this procedure are in the results section. POC GLUCOSE SCREEN Routine 11/27/2022 9:09 Result s for AM [employer] this procedure are in the results section. POC GLUCOSE SCREEN Routine 11/27/2022 8:27 Result s for AM [employer] this procedure are in the results section. POSACONAZOLE LEVEL, Timed Study 11/27/2022 5:45 Resul ts for SERUM [facility] [employer] this procedure are in the results section. FIBRINOGEN ACTIVITY AM 11/27/2022 1:00 Resul ts for AM [employer] this procedure are in the results section. DIFFERENTIAL CANCEL AM 11/27/2022 1:00 Resul ts for AM [employer] this procedure are in the results section. ANION GAP AM 11/27/2022 1:00 Results for AM [employer] this procedure are in the results section. Results CBC AM 11/27/2022 1:00 Results for AM [employer] this procedure are in the results section. .GLOMERULAR FILTRATION AM 11/27/2022 1:00 Re sults for RATE [facility] [employer] this procedure are in the results section. SERUM CREATININE AM 11/27/2022 1:00 Results for AM [employer] this procedure are in the results section. COMPLETE BLOOD COUNT W/ AM 11/27/2022 1:00 DIFFERENTIAL [facility] [employer] PROTHROMBIN TIME AM 11/27/2022 1:00 Results for AM [employer] this procedure are in the results section. APTT AM 11/27/2022 1:00 Results for AM [employer] this procedure are in the results section. ASPARTATE AM 11/27/2022 1:00 Results for AMINOTRANSFERASE [facility] this proced ure are in the results section. LACTATE DEHYDROGENASE AM 11/27/2022 1:00 Res ults for AM [employer] this procedure are in the results section. URIC ACID AM 11/27/2022 1:00 Results for AM [employer] this procedure are in the results section. ALANINE AM 11/27/2022 1:00 Results for AMINOTRANSFERASE [facility] this proced ure are in the results section. ALKALINE PHOSPHATASE AM 11/27/2022 1:00 Resu lts for AM [employer] this procedure are in the results section. FRACTIONATED BILIRUBIN AM 11/27/2022 1:00 Re sults for AM [employer] this procedure are in the results section. PHOSPHORUS LEVEL AM 11/27/2022 1:00 Results for AM [employer] this procedure are in the results section. ALBUMIN LEVEL AM 11/27/2022 1:00 Results for AM [employer] this procedure are in the results section. TOTAL PROTEIN AM 11/27/2022 1:00 Results for AM [employer] this procedure are in the results section. CARBON DIOXIDE LEVEL AM 11/27/2022 1:00 Resu lts for AM [employer] this procedure are in the results section. CHLORIDE LEVEL AM 11/27/2022 1:00 Results fo r [facility] [employer] this procedure are in the results section. MAGNESIUM LEVEL AM 11/27/2022 1:00 Results f or [facility] [employer] this procedure are in the results section. POTASSIUM LEVEL AM 11/27/2022 1:00 Results f or [facility] [employer] this procedure are in the results section. SODIUM LEVEL AM 11/27/2022 1:00 Results for AM [employer] this procedure are in the results section. SERUM CREATININE AM 11/27/2022 1:00 [facility] BLOOD UREA NITROGEN AM 11/27/2022 1:00 Resul ts for AM [employer] this procedure are in the results section. CALCIUM LEVEL TOTAL AM 11/27/2022 1:00 Resul ts for AM [employer] this procedure are in the results section. GLUCOSE, RANDOM AM 11/27/2022 1:00 Results f or [facility] [employer] this procedure are in the results section. POC GLUCOSE SCREEN Routine 11/26/2022 8:58 Result s for PM [employer] this procedure are in the results section. POC GLUCOSE SCREEN Routine 11/26/2022 5:43 Result s for PM [employer] this procedure are in the results section. POC GLUCOSE SCREEN Routine 11/26/2022 12:41 Resul ts for PM [employer] this procedure are in the results section. TRANSFUSE RED BLOOD Routine 11/26/2022 10:45 CELLS AM [facility] POC GLUCOSE SCREEN Routine 11/26/2022 8:35 Result s for AM [employer] this procedure are in the results section. PRBC PRODUCT READY FOR Routine 11/26/2022 3:08 Re sults for BOX CAR CHECKER [facility] [employer] this procedure are in the results section. PREPARE RBC Routine 11/26/2022 3:08 Results for AM [employer] this procedure are in the results section. TMP CROSSMATCH Routine 11/26/2022 1:28 Results fo r INTERPRETATION [facility] this procedur e are in the results section. TMP INTERPRETATION Routine 11/26/2022 1:28 Result s for ANTIBODY SCREEN [facility] this procedu re NEGATIVE are in the results section. CLOT EXPIRATION DATE Routine 11/26/2022 1:28 Resu lts for AM [employer] this procedure are in the results section. DIFFERENTIAL CANCEL AM 11/26/2022 1:28 Resul ts for AM [employer] this procedure are in the results section. FIBRINOGEN ACTIVITY AM 11/26/2022 1:28 Resul ts for AM [employer] this procedure are in the results section. ANION GAP AM 11/26/2022 1:28 Results for AM [employer] this procedure are in the results section. Results CBC AM 11/26/2022 1:28 Results for AM [employer] this procedure are in the results section. .GLOMERULAR FILTRATION AM 11/26/2022 1:28 Re sults for RATE [facility] [employer] this procedure are in the results section. SERUM CREATININE AM 11/26/2022 1:28 Results for AM [employer] this procedure are in the results section. ANTIBODY SCREEN Routine 11/26/2022 1:28 Results f or [facility] [employer] this procedure are in the results section. ABORH Routine 11/26/2022 1:28 Results for AM [employer] this procedure are in the results section. COMPLETE BLOOD COUNT W/ AM 11/26/2022 1:28 DIFFERENTIAL [facility] PROTHROMBIN TIME AM 11/26/2022 1:28 Results for AM [facility] this procedure are in the results section. APTT AM 11/26/2022 1:28 Results for AM [facility] this procedure are in the results section. ASPARTATE AM 11/26/2022 1:28 Results for AMINOTRANSFERASE [facility] this proced ure are in the results section. LACTATE DEHYDROGENASE AM 11/26/2022 1:28 Res ults for AM [employer] this procedure are in the results section. URIC ACID AM 11/26/2022 1:28 Results for AM [employer] this procedure are in the results section. ALANINE AM 11/26/2022 1:28 Results for AMINOTRANSFERASE [facility] this proced ure are in the results section. ALKALINE PHOSPHATASE AM 11/26/2022 1:28 Resu lts for AM [employer] this procedure are in the results section. FRACTIONATED BILIRUBIN AM 11/26/2022 1:28 Re sults for AM [employer] this procedure are in the results section. PHOSPHORUS LEVEL AM 11/26/2022 1:28 Results for AM [employer] this procedure are in the results section. ALBUMIN LEVEL AM 11/26/2022 1:28 Results for AM [employer] this procedure are in the results section. TOTAL PROTEIN AM 11/26/2022 1:28 Results for AM [employer] this procedure are in the results section. CARBON DIOXIDE LEVEL AM 11/26/2022 1:28 Resu lts for AM [employer] this procedure are in the results section. CHLORIDE LEVEL AM 11/26/2022 1:28 Results fo r [facility] [employer] this procedure are in the results section. MAGNESIUM LEVEL AM 11/26/2022 1:28 Results f or [facility] [employer] this procedure are in the results section. POTASSIUM LEVEL AM 11/26/2022 1:28 Results f or [facility] [employer] this procedure are in the results section. SODIUM LEVEL AM 11/26/2022 1:28 Results for AM [employer] this procedure are in the results section. SERUM CREATININE AM 11/26/2022 1:28 AM [facility] [employer] BLOOD UREA NITROGEN AM 11/26/2022 1:28 Resul ts for AM [facility] this procedure are in the results section. CALCIUM LEVEL TOTAL AM 11/26/2022 1:28 Resul ts for AM [employer] this procedure are in the results section. GLUCOSE, RANDOM AM 11/26/2022 1:28 Results f or [facility] [employer] this procedure are in the results section. TYPE AND SCREEN Routine 11/26/2022 1:28 [facility] [employer] POC GLUCOSE SCREEN Routine 11/25/2022 11:08 Resul ts for PM [employer] this procedure are in the results section. POC GLUCOSE SCREEN Routine 11/25/2022 9:06 Result s for PM [employer] this procedure are in the results section. POC GLUCOSE SCREEN Routine 11/25/2022 5:36 Result s for PM [employer] this procedure are in the results section. POC GLUCOSE SCREEN Routine 11/25/2022 12:26 Resul ts for PM [employer] this procedure are in the results section. POC GLUCOSE SCREEN Routine 11/25/2022 8:04 Result s for AM [employer] this procedure are in the results section. DIFFERENTIAL CANCEL AM 11/25/2022 1:58 Resul ts for AM [employer] this procedure are in the results section. ANION GAP AM 11/25/2022 1:58 Results for AM [employer] this procedure are in the results section. Results CBC AM 11/25/2022 1:58 Results for AM [employer] this procedure are in the results section. .GLOMERULAR FILTRATION AM 11/25/2022 1:58 Re sults for RATE [facility] [employer] this procedure are in the results section. SERUM CREATININE AM 11/25/2022 1:58 Results for AM [employer] this procedure are in the results section. COMPLETE BLOOD COUNT W/ AM 11/25/2022 1:58 DIFFERENTIAL [facility] [employer] PROTHROMBIN TIME AM 11/25/2022 1:58 Results for AM [employer] this procedure are in the results section. APTT AM 11/25/2022 1:58 Results for AM [facility] this procedure are in the results section. ASPARTATE AM 11/25/2022 1:58 Results for AMINOTRANSFERASE [facility] this proced ure are in the results section. LACTATE DEHYDROGENASE AM 11/25/2022 1:58 Res ults for AM [employer] this procedure are in the results section. URIC ACID AM 11/25/2022 1:58 Results for AM [facility] this procedure are in the results section. ALANINE AM 11/25/2022 1:58 Results for AMINOTRANSFERASE [facility] this proced ure are in the results section. ALKALINE PHOSPHATASE AM 11/25/2022 1:58 Resu lts for AM [employer] this procedure are in the results section. FRACTIONATED BILIRUBIN AM 11/25/2022 1:58 Re sults for AM [employer] this procedure are in the results section. PHOSPHORUS LEVEL AM 11/25/2022 1:58 Results for AM [facility] this procedure are in the results section. ALBUMIN LEVEL AM 11/25/2022 1:58 Results for AM [employer] this procedure are in the results section. TOTAL PROTEIN AM 11/25/2022 1:58 Results for AM [employer] this procedure are in the results section. CARBON DIOXIDE LEVEL AM 11/25/2022 1:58 Resu lts for AM [employer] this procedure are in the results section. CHLORIDE LEVEL AM 11/25/2022 1:58 Results fo r [facility] this procedure are in the results section. MAGNESIUM LEVEL AM 11/25/2022 1:58 Results f or [facility] this procedure are in the results section. POTASSIUM LEVEL AM 11/25/2022 1:58 Results f or [facility] [employer] this procedure are in the results section. SODIUM LEVEL AM 11/25/2022 1:58 Results for AM [employer] this procedure are in the results section. SERUM CREATININE AM 11/25/2022 1:58 AM [facility] [employer] BLOOD UREA NITROGEN AM 11/25/2022 1:58 Resul ts for AM [employer] this procedure are in the results section. CALCIUM LEVEL TOTAL AM 11/25/2022 1:58 Resul ts for AM [employer] this procedure are in the results section. GLUCOSE, RANDOM AM 11/25/2022 1:58 Results f or [facility] [employer] this procedure are in the results section. POC GLUCOSE SCREEN Routine 11/24/2022 9:45 Result s for PM [employer] this procedure are in the results section. TRANSFUSE PLATELETS Routine 11/24/2022 9:18 [facility] [employer] [employer] C DIFFICILE DNA ASSAY Routine 11/24/2022 7:32 Res ults for PATH REVIEW [facility] this procedure are in the results section. C DIFFICILE DNA ASSAY Now 11/24/2022 7:32 Res ults for PM [employer] this procedure are in the results section. POC GLUCOSE SCREEN Routine 11/24/2022 6:13 Result s for PM [facility] [employer] this procedure are in the results section. BLOODCULTURE Now 11/24/2022 3:43 Results for PM [employer] this procedure are in the results section. URINALYSIS MICROSCOPIC Now 11/24/2022 3:31 Re sults for PM [employer] this procedure are in the results section. URINE CULTURE Now 11/24/2022 3:31 Results for PM [employer] this procedure are in the results section. POTASSIUM LEVEL Routine 11/24/2022 1:05 Results f or [facility] [employer] this procedure are in the results section. FIBRINOGEN ACTIVITY Routine 11/24/2022 1:05 Resul ts for PM [employer] this procedure are in the results section. POC GLUCOSE SCREEN Routine 11/24/2022 12:39 Resul ts for [facility] [employer] this procedure are in the results section. PLT PRODUCT READY FOR Routine 11/24/2022 11:21 Re sults for BOX CAR CHECKER [facility] [employer] [employer] this procedure are in the results section. PREPARE PLATELETS Routine 11/24/2022 11:21 Result s for AM [employer] this procedure are in the results section. POC GLUCOSE SCREEN Routine 11/24/2022 9:23 Result s for AM [employer] this procedure are in the results section. DIFFERENTIAL CANCEL AM 11/24/2022 3:29 Resul ts for AM [employer] this procedure are in the results section. ANION GAP AM 11/24/2022 3:29 Results for AM [employer] this procedure are in the results section. Results CBC AM 11/24/2022 3:29 Results for AM [employer] this procedure are in the results section. .GLOMERULAR FILTRATION AM 11/24/2022 3:29 Re sults for RATE AM [facility] this procedure are in the results section. SERUM CREATININE AM 11/24/2022 3:29 Results for AM [facility] this procedure are in the results section. COMPLETE BLOOD COUNT W/ AM 11/24/2022 3:29 DIFFERENTIAL AM [facility] ASPARTATE AM 11/24/2022 3:29 Results for AMINOTRANSFERASE AM [facility] this proced ure are in the results section. FIBRINOGEN ACTIVITY Routine 11/24/2022 3:29 Resul ts for AM [employer] [employer] this procedure are in the results section. D DIMER Routine 11/24/2022 3:29 Results for AM [facility] [employer] this procedure are in the results section. APTT Routine 11/24/2022 3:29 Results for AM [facility] [employer] this procedure are in the results section. PROTHROMBIN TIME Routine 11/24/2022 3:29 Results for AM [facility] [employer] this procedure are in the results section. LACTATE DEHYDROGENASE AM 11/24/2022 3:29 Res ults for AM [facility] [employer] this procedure are in the results section. URIC ACID AM 11/24/2022 3:29 Results for AM [facility] [employer] this procedure are in the results section. ALANINE AM 11/24/2022 3:29 Results for AMINOTRANSFERASE AM [facility] this proced ure are in the results section. ALKALINE PHOSPHATASE AM 11/24/2022 3:29 Resu lts for AM [employer] this procedure are in the results section. FRACTIONATED BILIRUBIN AM 11/24/2022 3:29 Re sults for AM [employer] this procedure are in the results section. PHOSPHORUS LEVEL AM 11/24/2022 3:29 Results for AM [facility] [employer] this procedure are in the results section. ALBUMIN LEVEL AM 11/24/2022 3:29 Results for AM [facility] [employer] this procedure are in the results section. TOTAL PROTEIN AM 11/24/2022 3:29 Results for AM [facility] [employer] this procedure are in the results section. CARBON DIOXIDE LEVEL AM 11/24/2022 3:29 Resu lts for AM [facility] [employer] this procedure are in the results section. CHLORIDE LEVEL AM 11/24/2022 3:29 Results fo r AM [facility] this procedure are in the results section. MAGNESIUM LEVEL AM 11/24/2022 3:29 Results f or AM [facility] this procedure are in the results section. POTASSIUM LEVEL AM 11/24/2022 3:29 Results f or AM [facility] this procedure are in the results section. SODIUM LEVEL AM 11/24/2022 3:29 Results for AM [facility] [employer] this procedure are in the results section. SERUM CREATININE AM 11/24/2022 3:29 AM [facility] BLOOD UREA NITROGEN AM 11/24/2022 3:29 Resul ts for AM [facility] [employer] this procedure are in the results section. CALCIUM LEVEL TOTAL AM 11/24/2022 3:29 Resul ts for AM [facility] this procedure are in the results section. GLUCOSE, RANDOM AM 11/24/2022 3:29 Results f or AM [facility] this procedure are in the results section. PROTHROMBIN TIME AM 11/24/2022 3:19 Results for AM [facility] [employer] this procedure are in the results section. APTT AM 11/24/2022 3:19 Results for AM [facility] [employer] this procedure are in the results section. EKG, 12-LEAD (PORTABLE) STAT 11/24/2022 POC GLUCOSE SCREEN Routine 11/23/2022 8:11 Result s for PM [facility] [employer] this procedure are in the results section. POC GLUCOSE SCREEN Routine 11/23/2022 6:18 Result s for PM [facility] [employer] this procedure are in the results section. FIBRINOGEN ACTIVITY Routine 11/23/2022 2:32 Resul ts for PM [facility] this procedure are in the results section. POC GLUCOSE SCREEN Routine 11/23/2022 7:49 Result s for AM [employer] this procedure are in the results section. TRANSFUSE RED BLOOD Routine 11/23/2022 6:30 CELLS AM [facility] PRBC PRODUCT READY FOR Routine 11/23/2022 3:17 Re sults for BOX CAR CHECKER AM [facility] this procedure are in the results section. PREPARE RBC Routine 11/23/2022 3:17 Results for AM [facility] [employer] this procedure are in the results section. TMP INTERPRETATION Routine 11/23/2022 2:06 Result s for ANTIBODY SCREEN AM [facility] this procedu re NEGATIVE are in the results section. CLOT EXPIRATION DATE Routine 11/23/2022 2:06 Resu lts for AM [facility] this procedure are in the results section. ANION GAP AM 11/23/2022 2:06 Results for AM [facility] [employer] this procedure are in the results section. MANUAL DIFFERENTIAL AM 11/23/2022 2:06 Resul ts for AM [facility] this procedure are in the results section. Results CBC AM 11/23/2022 2:06 Results for AM [facility] this procedure are in the results section. .GLOMERULAR FILTRATION AM 11/23/2022 2:06 Re sults for RATE AM [facility] this procedure are in the results section. SERUM CREATININE AM 11/23/2022 2:06 Results for AM [facility] this procedure are in the results section. ANTIBODY SCREEN Routine 11/23/2022 2:06 Results f or AM [facility] [employer] this procedure are in the results section. ABORH Routine 11/23/2022 2:06 Results for AM [facility] this procedure are in the results section. COMPLETE BLOOD COUNT W/ AM 11/23/2022 2:06 DIFFERENTIAL AM [facility] PROTHROMBIN TIME AM 11/23/2022 2:06 Results for AM [facility] [employer] this procedure are in the results section. APTT AM 11/23/2022 2:06 Results for AM [facility] this procedure are in the results section. ASPARTATE AM 11/23/2022 2:06 Results for AMINOTRANSFERASE AM [facility] this proced ure are in the results section. LACTATE DEHYDROGENASE AM 11/23/2022 2:06 Res ults for AM [employer] this procedure are in the results section. URIC ACID AM 11/23/2022 2:06 Results for AM [facility] this procedure are in the results section. ALANINE AM 11/23/2022 2:06 Results for AMINOTRANSFERASE AM [facility] this proced ure are in the results section. ALKALINE PHOSPHATASE AM 11/23/2022 2:06 Resu lts for AM [employer] this procedure are in the results section. FRACTIONATED BILIRUBIN AM 11/23/2022 2:06 Re sults for AM [employer] this procedure are in the results section. PHOSPHORUS LEVEL AM 11/23/2022 2:06 Results for AM [facility] this procedure are in the results section. ALBUMIN LEVEL AM 11/23/2022 2:06 Results for AM [employer] this procedure are in the results section. TOTAL PROTEIN AM 11/23/2022 2:06 Results for AM [facility] this procedure are in the results section. CARBON DIOXIDE LEVEL AM 11/23/2022 2:06 Resu lts for AM [employer] this procedure are in the results section. CHLORIDE LEVEL AM 11/23/2022 2:06 Results fo r AM [facility] this procedure are in the results section. MAGNESIUM LEVEL AM 11/23/2022 2:06 Results f or AM [facility] [employer] this procedure are in the results section. POTASSIUM LEVEL AM 11/23/2022 2:06 Results f or AM [facility] [employer] this procedure are in the results section. SODIUM LEVEL AM 11/23/2022 2:06 Results for AM [facility] this procedure are in the results section. SERUM CREATININE AM 11/23/2022 2:06 AM [facility] BLOOD UREA NITROGEN AM 11/23/2022 2:06 Resul ts for AM [facility] this procedure are in the results section. CALCIUM LEVEL TOTAL AM 11/23/2022 2:06 Resul ts for AM [facility] this procedure are in the results section. GLUCOSE, RANDOM AM 11/23/2022 2:06 Results f or AM [facility] [employer] this procedure are in the results section. TYPE AND SCREEN Routine 11/23/2022 2:06 AM [facility] POTASSIUM LEVEL Routine 11/22/2022 8:20 Results f or PM [facility] [employer] this procedure are in the results section. FIBRINOGEN ACTIVITY Routine 11/22/2022 8:20 Resul ts for PM [facility] [employer] this procedure are in the results section. COVID-19 (SARS-COV-2) Now 11/22/2022 8:20 Res ults for PCR-ASYMPTOMATIC MC PM [facility] this pro cedure are in the results section. OSCILLATORY PEP Routine 11/22/2022 8:00 PM [facility] POC GLUCOSE SCREEN Routine 11/22/2022 6:14 Result s for PM [facility] [employer] this procedure are in the results section. TRANSFUSE PLATELETS Routine 11/22/2022 5:05 PM [facility] POC GLUCOSE SCREEN Routine 11/22/2022 3:53 Result s for PM [facility] this procedure are in the results section. CT SINUS WO CONTRAST STAT 11/22/2022 3:07 Resu lts for PM [employer] this procedure are in the results section. POC GLUCOSE SCREEN Routine 11/22/2022 1:07 Result s for PM [facility] [employer] this procedure are in the results section. POC CRITICAL Routine 11/22/2022 1:07 Results for PM [facility] [employer] this procedure are in the results section. PLT PRODUCT READY FOR Routine 11/22/2022 8:51 Res ults for BOX CAR CHECKER AM [facility] this procedure are in the results section. PREPARE PLATELETS Routine 11/22/2022 8:51 Results for AM [facility] [employer] this procedure are in the results section. OSCILLATORY PEP Routine 11/22/2022 8:00 AM [facility] DIFFERENTIAL CANCEL AM 11/22/2022 4:59 Resul ts for AM [facility] this procedure are in the results section. ANION GAP AM 11/22/2022 4:59 Results for AM [facility] this procedure are in the results section. Results CBC AM 11/22/2022 4:59 Results for AM [facility] this procedure are in the results section. .GLOMERULAR FILTRATION AM 11/22/2022 4:59 Re sults for RATE AM [employer] this procedure are in the results section. SERUM CREATININE AM 11/22/2022 4:59 Results for AM [facility] [employer] this procedure are in the results section. COMPLETE BLOOD COUNT W/ AM 11/22/2022 4:59 DIFFERENTIAL AM [facility] PROTHROMBIN TIME AM 11/22/2022 4:59 Results for AM [facility] this procedure are in the results section. APTT AM 11/22/2022 4:59 Results for AM [facility] this procedure are in the results section. ASPARTATE AM 11/22/2022 4:59 Results for AMINOTRANSFERASE AM [facility] [facility] this proced ure are in the results section. LACTATE DEHYDROGENASE AM 11/22/2022 4:59 Res ults for AM [facility] this procedure are in the results section. URIC ACID AM 11/22/2022 4:59 Results for AM [facility] this procedure are in the results section. ALANINE AM 11/22/2022 4:59 Results for AMINOTRANSFERASE AM [facility] this proced ure are in the results section. ALKALINE PHOSPHATASE AM 11/22/2022 4:59 Resu lts for AM [employer] this procedure are in the results section. FRACTIONATED BILIRUBIN AM 11/22/2022 4:59 Re sults for AM [employer] this procedure are in the results section. PHOSPHORUS LEVEL AM 11/22/2022 4:59 Results for AM [facility] [employer] this procedure are in the results section. ALBUMIN LEVEL AM 11/22/2022 4:59 Results for AM [facility] [employer] this procedure are in the results section. TOTAL PROTEIN AM 11/22/2022 4:59 Results for AM [facility] this procedure are in the results section. CARBON DIOXIDE LEVEL AM 11/22/2022 4:59 Resu lts for AM [facility] this procedure are in the results section. CHLORIDE LEVEL AM 11/22/2022 4:59 Results fo r AM [facility] this procedure are in the results section. MAGNESIUM LEVEL AM 11/22/2022 4:59 Results f or AM [facility] [employer] this procedure are in the results section. POTASSIUM LEVEL AM 11/22/2022 4:59 Results f or AM [facility] [employer] this procedure are in the results section. SODIUM LEVEL AM 11/22/2022 4:59 Results for AM [facility] this procedure are in the results section. SERUM CREATININE AM 11/22/2022 4:59 AM [facility] BLOOD UREA NITROGEN AM 11/22/2022 4:59 Resul ts for AM [facility] this procedure are in the results section. CALCIUM LEVEL TOTAL AM 11/22/2022 4:59 Resul ts for AM [facility] this procedure are in the results section. GLUCOSE, RANDOM AM 11/22/2022 4:59 Results f or AM [facility] this procedure are in the results section. LOWER RESPIRATORY Now 11/21/2022 11:20 Result s for CULTURE W/ GRAM STAIN PM [facility] this p rocedure are in the results section. POC GLUCOSE SCREEN Routine 11/21/2022 11:09 Resul ts for PM [facility] [employer] this procedure are in the results section. POC GLUCOSE SCREEN Routine 11/21/2022 8:31 Result s for PM [facility] [employer] this procedure are in the results section. POC GLUCOSE SCREEN Routine 11/21/2022 5:53 Result s for PM [facility] this procedure are in the results section. FIBRINOGEN ACTIVITY Routine 11/21/2022 3:54 Resul ts for PM [facility] this procedure are in the results section. WOUND CULTURE W/ GRAM Now 11/21/2022 2:40 Res ults for STAIN PM [facility] [employer] this procedure are in the results section. HSV/VZV DNA DETECTION Now 11/21/2022 2:40 Res ults for PM [facility] this procedure are in the results section. POC GLUCOSE SCREEN Routine 11/21/2022 1:16 Result s for PM [facility] this procedure are in the results section. POC GLUCOSE SCREEN Routine 11/21/2022 9:20 Result s for AM [employer] this procedure are in the results section. URINALYSIS MICROSCOPIC Now 11/21/2022 3:14 Re sults for AM [facility] this procedure are in the results section. URINE CULTURE Now 11/21/2022 3:14 Results for AM [facility] [employer] this procedure are in the results section. OSCILLATORY PEP Routine 11/21/2022 2:00 AM [facility] XR CHEST 1 VW PORTABLE STAT 11/21/2022 1:41 Re sults for AM [facility] this procedure are in the results section. BLOODCULTURE Now 11/21/2022 1:22 Results for AM [facility] this procedure are in the results section. DIFFERENTIAL CANCEL AM 11/21/2022 1:05 Resul ts for AM [facility] this procedure are in the results section. ANION GAP AM 11/21/2022 1:05 Results for AM [facility] [employer] this procedure are in the results section. Results CBC AM 11/21/2022 1:05 Results for AM [facility] [employer] this procedure are in the results section. .GLOMERULAR FILTRATION AM 11/21/2022 1:05 Re sults for RATE AM [facility] [employer] this procedure are in the results section. SERUM CREATININE AM 11/21/2022 1:05 Results for AM [facility] this procedure are in the results section. COMPLETE BLOOD COUNT W/ AM 11/21/2022 1:05 DIFFERENTIAL AM [facility] ASPARTATE AM 11/21/2022 1:05 Results for AMINOTRANSFERASE AM [facility] this proced ure are in the results section. FIBRINOGEN ACTIVITY Routine 11/21/2022 1:05 Resul ts for AM [facility] this procedure are in the results section. D DIMER Routine 11/21/2022 1:05 Results for AM [facility] this procedure are in the results section. APTT Routine 11/21/2022 1:05 Results for AM [facility] [employer] this procedure are in the results section. PROTHROMBIN TIME Routine 11/21/2022 1:05 Results for AM [facility] this procedure are in the results section. LACTATE DEHYDROGENASE AM 11/21/2022 1:05 Res ults for AM [facility] this procedure are in the results section. URIC ACID AM 11/21/2022 1:05 Results for AM [facility] [employer] this procedure are in the results section. ALANINE AM 11/21/2022 1:05 Results for AMINOTRANSFERASE AM [facility] this proced ure are in the results section. ALKALINE PHOSPHATASE AM 11/21/2022 1:05 Resu lts for AM [facility] this procedure are in the results section. FRACTIONATED BILIRUBIN AM 11/21/2022 1:05 Re sults for AM [facility] this procedure are in the results section. PHOSPHORUS LEVEL AM 11/21/2022 1:05 Results for AM [facility] [employer] this procedure are in the results section. ALBUMIN LEVEL AM 11/21/2022 1:05 Results for AM [facility] this procedure are in the results section. TOTAL PROTEIN AM 11/21/2022 1:05 Results for AM [facility] this procedure are in the results section. CARBON DIOXIDE LEVEL AM 11/21/2022 1:05 Resu lts for AM [facility] this procedure are in the results section. CHLORIDE LEVEL AM 11/21/2022 1:05 Results fo r AM [facility] this procedure are in the results section. MAGNESIUM LEVEL AM 11/21/2022 1:05 Results f or AM [facility] [employer] this procedure are in the results section. POTASSIUM LEVEL AM 11/21/2022 1:05 Results f or AM [facility] [employer] this procedure are in the results section. SODIUM LEVEL AM 11/21/2022 1:05 Results for AM [facility] [employer] this procedure are in the results section. SERUM CREATININE AM 11/21/2022 1:05 AM [facility] BLOOD UREA NITROGEN AM 11/21/2022 1:05 Resul ts for AM [facility] [employer] this procedure are in the results section. CALCIUM LEVEL TOTAL AM 11/21/2022 1:05 Resul ts for AM [facility] this procedure are in the results section. GLUCOSE, RANDOM AM 11/21/2022 1:05 Results f or AM [facility] this procedure are in the results section. BLOODCULTURE Now 11/21/2022 1:05 Results for AM [facility] [employer] this procedure are in the results section. PROTHROMBIN TIME AM 11/21/2022 12:58 Results for AM [facility] this procedure are in the results section. APTT AM 11/21/2022 12:58 Results for AM [facility] this procedure are in the results section. POC GLUCOSE SCREEN Routine 11/20/2022 9:33 Result s for PM [facility] [employer] this procedure are in the results section. VRE CULTURE Routine 11/20/2022 9:27 Results for PM [facility] [employer] this procedure are in the results section. POC GLUCOSE SCREEN Routine 11/20/2022 6:02 Result s for PM [facility] this procedure are in the results section. POC GLUCOSE SCREEN Routine 11/20/2022 12:47 Resul ts for PM [facility] this procedure are in the results section. TRANSFUSE PLATELETS Routine 11/20/2022 11:10 AM [facility] POC GLUCOSE SCREEN Routine 11/20/2022 9:23 Result s for AM [facility] this procedure are in the results section. POC GLUCOSE SCREEN Routine 11/20/2022 8:27 Result s for AM [facility] this procedure are in the results section. PLT PRODUCT READY FOR Routine 11/20/2022 3:53 Res ults for BOX CAR CHECKER AM [facility] this procedure are in the results section. PREPARE PLATELETS Routine 11/20/2022 3:53 Results for AM [facility] [employer] this procedure are in the results section. TMP CROSSMATCH Routine 11/20/2022 3:00 Results fo r INTERPRETATION AM [facility] this procedur e are in the results section. CLOT EXPIRATION DATE Routine 11/20/2022 3:00 Resu lts for AM [facility] this procedure are in the results section. TMP INTERPRETATION Routine 11/20/2022 3:00 Result s for ANTIBODY SCREEN AM [facility] this procedu re NEGATIVE are in the results section. DIFFERENTIAL CANCEL Routine 11/20/2022 3:00 Resul ts for AM [facility] [employer] this procedure are in the results section. ANION GAP AM 11/20/2022 3:00 Results for AM [facility] [employer] this procedure are in the results section. .GLOMERULAR FILTRATION AM 11/20/2022 3:00 Re sults for RATE AM [facility] [employer] this procedure are in the results section. SERUM CREATININE AM 11/20/2022 3:00 Results for AM [facility] [employer] this procedure are in the results section. ANTIBODY SCREEN Routine 11/20/2022 3:00 Results f or AM [facility] [employer] this procedure are in the results section. ABORH Routine 11/20/2022 3:00 Results for AM [facility] this procedure are in the results section. Results CBC Routine 11/20/2022 3:00 Results for AM [facility] [employer] this procedure are in the results section. PROTHROMBIN TIME AM 11/20/2022 3:00 Results for AM [facility] this procedure are in the results section. APTT AM 11/20/2022 3:00 Results for AM [facility] [employer] this procedure are in the results section. ASPARTATE AM 11/20/2022 3:00 Results for AMINOTRANSFERASE AM [facility] this proced ure are in the results section. LACTATE DEHYDROGENASE AM 11/20/2022 3:00 Res ults for AM [facility] [employer] this procedure are in the results section. URIC ACID AM 11/20/2022 3:00 Results for AM [facility] this procedure are in the results section. ALANINE AM 11/20/2022 3:00 Results for AMINOTRANSFERASE AM [facility] this proced ure are in the results section. ALKALINE PHOSPHATASE AM 11/20/2022 3:00 Resu lts for AM [facility] this procedure are in the results section. FRACTIONATED BILIRUBIN AM 11/20/2022 3:00 Re sults for AM [facility] this procedure are in the results section. PHOSPHORUS LEVEL AM 11/20/2022 3:00 Results for AM [facility] this procedure are in the results section. ALBUMIN LEVEL AM 11/20/2022 3:00 Results for AM [facility] this procedure are in the results section. TOTAL PROTEIN AM 11/20/2022 3:00 Results for AM [facility] [employer] this procedure are in the results section. CARBON DIOXIDE LEVEL AM 11/20/2022 3:00 Resu lts for AM [facility] [employer] this procedure are in the results section. CHLORIDE LEVEL AM 11/20/2022 3:00 Results fo r AM [facility] this procedure are in the results section. MAGNESIUM LEVEL AM 11/20/2022 3:00 Results f or AM [facility] this procedure are in the results section. POTASSIUM LEVEL AM 11/20/2022 3:00 Results f or AM [facility] this procedure are in the results section. SODIUM LEVEL AM 11/20/2022 3:00 Results for AM [facility] [employer] this procedure are in the results section. SERUM CREATININE AM 11/20/2022 3:00 AM [facility] BLOOD UREA NITROGEN AM 11/20/2022 3:00 Resul ts for AM [facility] [employer] this procedure are in the results section. CALCIUM LEVEL TOTAL AM 11/20/2022 3:00 Resul ts for AM [facility] [employer] this procedure are in the results section. GLUCOSE, RANDOM AM 11/20/2022 3:00 Results f or AM [facility] this procedure are in the results section. TYPE AND SCREEN Routine 11/20/2022 3:00 AM [facility] COMPLETE BLOOD COUNT W/ Routine 11/20/2022 3:00 DIFFERENTIAL AM [facility] BLOODCULTURE AM 11/20/2022 3:00 Results for AM [facility] this procedure are in the results section. POC GLUCOSE SCREEN Routine 11/19/2022 11:03 Resul ts for PM [facility] [employer] this procedure are in the results section. TRANSFUSE RED BLOOD Routine 11/19/2022 9:35 CELLS PM [facility] OSCILLATORY PEP Routine 11/19/2022 8:00 PM [facility] POC GLUCOSE SCREEN Routine 11/19/2022 7:43 Result s for PM [facility] this procedure are in the results section. POC GLUCOSE SCREEN Routine 11/19/2022 6:33 Result s for PM [facility] [employer] this procedure are in the results section. PRBC PRODUCT READY FOR Routine 11/19/2022 4:22 Re sults for BOX CAR CHECKER PM [facility] this procedure are in the results section. PREPARE RBC Routine 11/19/2022 4:22 Results for PM [facility] this procedure are in the results section. TRANSFUSE PLATELETS Routine 11/19/2022 3:35 PM [facility] MANUAL DIFFERENTIAL Routine 11/19/2022 3:19 Resul ts for PM [facility] [employer] this procedure are in the results section. Results CBC Routine 11/19/2022 3:19 Results for PM [facility] this procedure are in the results section. FIBRINOGEN ACTIVITY Routine 11/19/2022 3:19 Resul ts for PM [facility] [employer] this procedure are in the results section. COMPLETE BLOOD COUNT W/ Routine 11/19/2022 3:19 DIFFERENTIAL PM [facility] POC GLUCOSE SCREEN Routine 11/19/2022 3:11 Result s for PM [facility] this procedure are in the results section. CT CHEST WO CONTRAST STAT 11/19/2022 2:42 Resu lts for PM [facility] [employer] this procedure are in the results section. CT HEAD WO CONTRAST STAT 11/19/2022 2:42 Resul ts for PM [facility] this procedure are in the results section. OSCILLATORY PEP Routine 11/19/2022 2:00 PM [facility] POC GLUCOSE SCREEN Routine 11/19/2022 1:09 Resul ts for PM [facility] [employer] this procedure are in the results section. OSCILLATORY PEP Routine 11/19/2022 8:00 AM [facility] POC GLUCOSE SCREEN Routine 11/19/2022 7:57 Result s for AM [facility] [employer] this procedure are in the results section. TRANSFUSE RED BLOOD Routine 11/19/2022 4:50 CELLS AM [facility] OSCILLATORY PEP Routine 11/19/2022 3:59 AM [facility] OSCILLATORY PEP Routine 11/19/2022 3:59 AM [facility] OSCILLATORY PEP Routine 11/19/2022 3:59 AM [facility] PLT PRODUCT READY FOR Routine 11/19/2022 3:05 Res ults for BOX CAR CHECKER AM [facility] this procedure are in the results section. PRBC PRODUCT READY FOR Routine 11/19/2022 3:05 Re sults for BOX CAR CHECKER AM [facility] [employer] this procedure are in the results section. PREPARE PLATELETS Routine 11/19/2022 3:05 Results for AM [facility] [employer] this procedure are in the results section. PREPARE RBC Routine 11/19/2022 3:05 Results for AM [facility] [employer] this procedure are in the results section. ANION GAP AM 11/19/2022 2:05 Results for AM [facility] [employer] this procedure are in the results section. .GLOMERULAR FILTRATION AM 11/19/2022 2:05 Re sults for RATE AM [facility] [employer] this procedure are in the results section. SERUM CREATININE AM 11/19/2022 2:05 Results for AM [facility] [employer] this procedure are in the results section. MANUAL DIFFERENTIAL Routine 11/19/2022 2:05 Resul ts for AM [facility] this procedure are in the results section. Results CBC Routine 11/19/2022 2:05 Results for AM [facility] [employer] this procedure are in the results section. PROTHROMBIN TIME AM 11/19/2022 2:05 Results for AM [facility] [employer] this procedure are in the results section. APTT AM 11/19/2022 2:05 Results for AM [facility] [employer] this procedure are in the results section. ASPARTATE AM 11/19/2022 2:05 Results for AMINOTRANSFERASE AM [facility] this proced ure are in the results section. LACTATE DEHYDROGENASE AM 11/19/2022 2:05 Res ults for [facility] this procedure are in the results section. URIC ACID AM 11/19/2022 2:05 Results for [facility] this procedure are in the results section. ALANINE AM 11/19/2022 2:05 Results for AMINOTRANSFERASE [facility] this proced ure are in the results section. ALKALINE PHOSPHATASE AM 11/19/2022 2:05 Resu lts for [facility] [employer] this procedure are in the results section. FRACTIONATED BILIRUBIN AM 11/19/2022 2:05 Re sults for [facility] this procedure are in the results section. PHOSPHORUS LEVEL AM 11/19/2022 2:05 Results for AM [facility] this procedure are in the results section. ALBUMIN LEVEL AM 11/19/2022 2:05 Results for AM [facility] this procedure are in the results section. TOTAL PROTEIN AM 11/19/2022 2:05 Results for [facility] this procedure are in the results section. CARBON DIOXIDE LEVEL AM 11/19/2022 2:05 Resu lts for [facility] [employer] this procedure are in the results section. CHLORIDE LEVEL AM 11/19/2022 2:05 Results fo r [facility] this procedure are in the results section. MAGNESIUM LEVEL AM 11/19/2022 2:05 Results f or [facility] this procedure are in the results section. POTASSIUM LEVEL AM 11/19/2022 2:05 Results f or [facility] this procedure are in the results section. SODIUM LEVEL AM 11/19/2022 2:05 Results for [facility] [employer] this procedure are in the results section. SERUM CREATININE AM 11/19/2022 2:05 AM [facility] BLOOD UREA NITROGEN AM 11/19/2022 2:05 Resul ts for [facility] this procedure are in the results section. CALCIUM LEVEL TOTAL AM 11/19/2022 2:05 Resul ts for [facility] [employer] this procedure are in the results section. GLUCOSE, RANDOM AM 11/19/2022 2:05 Results f or [facility] this procedure are in the results section. COMPLETE BLOOD COUNT W/ Routine 11/19/2022 2:05 DIFFERENTIAL [facility] BLOODCULTURE AM 11/19/2022 2:05 Results for [facility] [employer] this procedure are in the results section. POC GLUCOSE SCREEN Routine 11/18/2022 10:19 Resul ts for PM [facility] [employer] this procedure are in the results section. POC GLUCOSE SCREEN Routine 11/18/2022 6:12 Result s for PM [facility] [employer] this procedure are in the results section. POC GLUCOSE SCREEN Routine 11/18/2022 5:13 Result s for PM [facility] [employer] this procedure are in the results section. TRANSFUSE PLATELETS Routine 11/18/2022 2:55 [facility] MANUAL DIFFERENTIAL Routine 11/18/2022 12:57 Resu lts for [facility] [employer] this procedure are in the results section. Results CBC Routine 11/18/2022 12:57 Results for PM [facility] [employer] this procedure are in the results section. FIBRINOGEN ACTIVITY Routine 11/18/2022 12:57 Resu lts for [facility] [employer] this procedure are in the results section. COMPLETE BLOOD COUNT W/ Routine 11/18/2022 12:57 DIFFERENTIAL [facility] POC GLUCOSE SCREEN Routine 11/18/2022 12:16 Resul ts for PM [employer] this procedure are in the results section. POC GLUCOSE SCREEN Routine 11/18/2022 8:29 Result s for [facility] [employer] this procedure are in the results section. PLT PRODUCT READY FOR Routine 11/18/2022 7:46 Res ults for BOX CAR CHECKER [facility] this procedure are in the results section. PREPARE PLATELETS Routine 11/18/2022 7:46 Results for AM [facility] this procedure are in the results section. TRANSFUSE RED BLOOD Routine 11/18/2022 5:05 CELLS [facility] PRBC PRODUCT READY FOR Routine 11/18/2022 2:38 Re sults for BOX CAR CHECKER [facility] this procedure are in the results section. PREPARE RBC Routine 11/18/2022 2:38 Results for AM [facility] [employer] this procedure are in the results section. ANION GAP AM 11/18/2022 12:55 Results for AM [facility] this procedure are in the results section. .GLOMERULAR FILTRATION AM 11/18/2022 12:55 R esults for RATE [facility] this procedure are in the results section. SERUM CREATININE AM 11/18/2022 12:55 Results for AM [facility] this procedure are in the results section. MANUAL DIFFERENTIAL Routine 11/18/2022 12:55 Resu lts for AM [employer] this procedure are in the results section. Results CBC Routine 11/18/2022 12:55 Results for AM [facility] [employer] this procedure are in the results section. COMPLETE BLOOD COUNT W/ Routine 11/18/2022 12:55 DIFFERENTIAL [facility] ASPARTATE AM 11/18/2022 12:55 Results for AMINOTRANSFERASE [facility] this proced ure are in the results section. FIBRINOGEN ACTIVITY Routine 11/18/2022 12:55 Resu lts for AM [employer] this procedure are in the results section. D DIMER Routine 11/18/2022 12:55 Results for AM [facility] [employer] this procedure are in the results section. APTT Routine 11/18/2022 12:55 Results for AM [facility] [employer] this procedure are in the results section. PROTHROMBIN TIME Routine 11/18/2022 12:55 Results for AM [facility] [employer] this procedure are in the results section. LACTATE DEHYDROGENASE AM 11/18/2022 12:55 Re sults for AM [employer] this procedure are in the results section. URIC ACID AM 11/18/2022 12:55 Results for AM [facility] this procedure are in the results section. ALANINE AM 11/18/2022 12:55 Results for AMINOTRANSFERASE [facility] this proced ure are in the results section. ALKALINE PHOSPHATASE AM 11/18/2022 12:55 Res ults for AM [employer] this procedure are in the results section. FRACTIONATED BILIRUBIN AM 11/18/2022 12:55 R esults for AM [facility] this procedure are in the results section. PHOSPHORUS LEVEL AM 11/18/2022 12:55 Results for AM [employer] this procedure are in the results section. ALBUMIN LEVEL AM 11/18/2022 12:55 Results fo r [facility] this procedure are in the results section. TOTAL PROTEIN AM 11/18/2022 12:55 Results fo r [facility] this procedure are in the results section. CARBON DIOXIDE LEVEL AM 11/18/2022 12:55 Res ults for AM [facility] this procedure are in the results section. CHLORIDE LEVEL AM 11/18/2022 12:55 Results f or [facility] this procedure are in the results section. MAGNESIUM LEVEL AM 11/18/2022 12:55 Results for AM [employer] this procedure are in the results section. POTASSIUM LEVEL AM 11/18/2022 12:55 Results for AM [facility] this procedure are in the results section. SODIUM LEVEL AM 11/18/2022 12:55 Results for AM [employer] this procedure are in the results section. SERUM CREATININE AM 11/18/2022 12:55 AM [facility] BLOOD UREA NITROGEN AM 11/18/2022 12:55 Resu lts for AM [facility] this procedure are in the results section. CALCIUM LEVEL TOTAL AM 11/18/2022 12:55 Resu lts for AM [employer] this procedure are in the results section. GLUCOSE, RANDOM AM 11/18/2022 12:55 Results for AM [facility] this procedure are in the results section. BLOODCULTURE AM 11/18/2022 12:55 Results for AM [facility] this procedure are in the results section. POC GLUCOSE SCREEN Routine 11/17/2022 9:09 Result s for PM [employer] this procedure are in the results section. POC GLUCOSE SCREEN Routine 11/17/2022 4:55 Result s for PM [facility] [employer] this procedure are in the results section. HP MARIBEL-POP Now 11/17/2022 3:09 VIRUS QUANTITATIVE PCR [facility] ANALYSIS INTERPRETATION AND REPORT PLATELET COUNT Routine 11/17/2022 3:09 Results fo r [facility] this procedure are in the results section. HP MARIBEL-POP Now 11/17/2022 3:09 Result s for VIRUS QUANTITATIVE PCR [facility] this procedure ANALYSIS COLLECTION, are in the BLOOD results section. CMV QUANT PCR Now 11/17/2022 3:09 Results for PM [facility] [employer] this procedure are in the results section. POC GLUCOSE SCREEN Routine 11/17/2022 11:57 Resul ts for AM [employer] this procedure are in the results section. FIBRINOGEN ACTIVITY Routine 11/17/2022 11:49 Resu lts for AM [employer] this procedure are in the results section. PROTHROMBIN TIME Now 11/17/2022 11:49 Results for AM [facility] [employer] this procedure are in the results section. APTT Now 11/17/2022 11:49 Results for AM [facility] [employer] this procedure are in the results section. TRANSFUSE PLATELETS Routine 11/17/2022 9:00 [facility] POC GLUCOSE SCREEN Routine 11/17/2022 8:31 Result s for AM [facility] [employer] this procedure are in the results section. PLT PRODUCT READY FOR Routine 11/17/2022 5:49 Res ults for BOX CAR CHECKER [facility] this procedure are in the results section. PREPARE PLATELETS Routine 11/17/2022 5:49 Results for AM [facility] [employer] this procedure are in the results section. TMP CROSSMATCH Routine 11/17/2022 2:22 Results fo r INTERPRETATION [facility] this procedur e are in the results section. TMP INTERPRETATION Routine 11/17/2022 2:22 Result s for ANTIBODY SCREEN [facility] this procedu re NEGATIVE are in the results section. CLOT EXPIRATION DATE Routine 11/17/2022 2:22 Resu lts for AM [employer] this procedure are in the results section. ANION GAP AM 11/17/2022 2:22 Results for AM [facility] [employer] this procedure are in the results section. .GLOMERULAR FILTRATION AM 11/17/2022 2:22 Re sults for RATE [facility] this procedure are in the results section. SERUM CREATININE AM 11/17/2022 2:22 Results for AM [facility] [employer] this procedure are in the results section. MANUAL DIFFERENTIAL AM 11/17/2022 2:22 Resul ts for AM [facility] this procedure are in the results section. Results CBC AM 11/17/2022 2:22 Results for AM [facility] this procedure are in the results section. ANTIBODY SCREEN Routine 11/17/2022 2:22 Results f or [facility] this procedure are in the results section. ABORH Routine 11/17/2022 2:22 Results for AM [facility] [employer] this procedure are in the results section. ASPARTATE AM 11/17/2022 2:22 Results for AMINOTRANSFERASE [facility] this proced ure are in the results section. HBV DNA QUANT AM 11/17/2022 2:22 Results for AM [facility] this procedure are in the results section. HEPATITIS B SURFACE AM 11/17/2022 2:22 Resul ts for ANTIBODY, SERUM [facility] this procedu re are in the results section. LACTATE DEHYDROGENASE AM 11/17/2022 2:22 Res ults for AM [facility] this procedure are in the results section. URIC ACID AM 11/17/2022 2:22 Results for AM [facility] this procedure are in the results section. ALANINE AM 11/17/2022 2:22 Results for AMINOTRANSFERASE [facility] this proced ure are in the results section. ALKALINE PHOSPHATASE AM 11/17/2022 2:22 Resu lts for AM [employer] this procedure are in the results section. FRACTIONATED BILIRUBIN AM 11/17/2022 2:22 Re sults for AM [facility] this procedure are in the results section. PHOSPHORUS LEVEL AM 11/17/2022 2:22 Results for AM [facility] [employer] this procedure are in the results section. ALBUMIN LEVEL AM 11/17/2022 2:22 Results for AM [facility] [employer] this procedure are in the results section. TOTAL PROTEIN AM 11/17/2022 2:22 Results for AM [facility] this procedure are in the results section. CARBON DIOXIDE LEVEL AM 11/17/2022 2:22 Resu lts for AM [facility] [facility] this procedure are in the results section. CHLORIDE LEVEL AM 11/17/2022 2:22 Results fo r [facility] this procedure are in the results section. MAGNESIUM LEVEL AM 11/17/2022 2:22 Results f or [facility] this procedure are in the results section. POTASSIUM LEVEL AM 11/17/2022 2:22 Results f or [facility] [employer] this procedure are in the results section. SODIUM LEVEL AM 11/17/2022 2:22 Results for AM [employer] this procedure are in the results section. SERUM CREATININE AM 11/17/2022 2:22 AM [facility] BLOOD UREA NITROGEN AM 11/17/2022 2:22 Resul ts for AM [facility] this procedure are in the results section. CALCIUM LEVEL TOTAL AM 11/17/2022 2:22 Resul ts for AM [facility] this procedure are in the results section. GLUCOSE, RANDOM AM 11/17/2022 2:22 Results f or [facility] this procedure are in the results section. COMPLETE BLOOD COUNT W/ AM 11/17/2022 2:22 DIFFERENTIAL [facility] TYPE AND SCREEN Routine 11/17/2022 2:22 [facility] POC GLUCOSE SCREEN Routine 11/16/2022 10:57 Resul ts for PM [employer] this procedure are in the results section. POC GLUCOSE SCREEN Routine 11/16/2022 10:22 Resul ts for [facility] [employer] this procedure are in the results section. POC GLUCOSE SCREEN Routine 11/16/2022 5:46 Result s for PM [facility] [employer] this procedure are in the results section. BLOODCULTURE Now 11/16/2022 2:05 Results for PM [facility] [employer] this procedure are in the results section. POC GLUCOSE SCREEN Routine 11/16/2022 1:17 Result s for PM [facility] [employer] this procedure are in the results section. POC GLUCOSE SCREEN Routine 11/16/2022 8:30 Result s for AM [employer] this procedure are in the results section. ANION GAP AM 11/16/2022 2:24 Results for AM [facility] this procedure are in the results section. .GLOMERULAR FILTRATION AM 11/16/2022 2:24 Re sults for RATE [facility] this procedure are in the results section. SERUM CREATININE AM 11/16/2022 2:24 Results for AM [facility] this procedure are in the results section. MANUAL DIFFERENTIAL AM 11/16/2022 2:24 Resul ts for AM [facility] this procedure are in the results section. Results CBC AM 11/16/2022 2:24 Results for AM [facility] this procedure are in the results section. HBV DNA QUANT AM 11/16/2022 2:24 Results for AM [facility] this procedure are in the results section. HEPATITIS B SURFACE AM 11/16/2022 2:24 Resul ts for ANTIBODY, SERUM [facility] this procedu re are in the results section. LACTATE DEHYDROGENASE AM 11/16/2022 2:24 Res ults for AM [facility] [facility] this procedure are in the results section. URIC ACID AM 11/16/2022 2:24 Results for AM [facility] [facility] this procedure are in the results section. ALANINE AM 11/16/2022 2:24 Results for AMINOTRANSFERASE [facility] this proced ure are in the results section. ALKALINE PHOSPHATASE AM 11/16/2022 2:24 Resu lts for AM [employer] this procedure are in the results section. FRACTIONATED BILIRUBIN AM 11/16/2022 2:24 Re sults for AM [facility] this procedure are in the results section. PHOSPHORUS LEVEL AM 11/16/2022 2:24 Results for AM [facility] this procedure are in the results section. ALBUMIN LEVEL AM 11/16/2022 2:24 Results for AM [facility] this procedure are in the results section. TOTAL PROTEIN AM 11/16/2022 2:24 Results for AM [facility] this procedure are in the results section. CARBON DIOXIDE LEVEL AM 11/16/2022 2:24 Resu lts for AM [facility] [facility] this procedure are in the results section. CHLORIDE LEVEL AM 11/16/2022 2:24 Results fo r [facility] this procedure are in the results section. MAGNESIUM LEVEL AM 11/16/2022 2:24 Results f or [facility] this procedure are in the results section. POTASSIUM LEVEL AM 11/16/2022 2:24 Results f or [facility] [facility] this procedure are in the results section. SODIUM LEVEL AM 11/16/2022 2:24 Results for AM [facility] this procedure are in the results section. SERUM CREATININE AM 11/16/2022 2:24 [facility] BLOOD UREA NITROGEN AM 11/16/2022 2:24 Resul ts for AM [facility] this procedure are in the results section. CALCIUM LEVEL TOTAL AM 11/16/2022 2:24 Resul ts for AM [employer] this procedure are in the results section. GLUCOSE, RANDOM AM 11/16/2022 2:24 Results f or [facility] this procedure are in the results section. COMPLETE BLOOD COUNT W/ AM 11/16/2022 2:24 DIFFERENTIAL [facility] CRYPTOCOCCAL ANTIGEN, Routine 11/16/2022 2:24 Res ults for SERUM PATH REVIEW [facility] this proce dure are in the results section. CRYPTOCOCCAL ANTIGEN, Now 11/16/2022 2:24 Res ults for SERUM [facility] this procedure are in the results section. POC GLUCOSE SCREEN Routine 11/15/2022 10:18 Resul ts for PM [facility] [employer] this procedure are in the results section. POC GLUCOSE SCREEN Routine 11/15/2022 7:29 Result s for [facility] this procedure are in the results section. POC GLUCOSE SCREEN Routine 11/15/2022 1:40 Result s for [facility] this procedure are in the results section. COVID-19 (SARS-COV-2) Now 11/15/2022 9:43 Res ults for PCR-ASYMPTOMATIC MC [facility] this pro cedure are in the results section. URINE CULTURE Now 11/15/2022 9:43 Results for AM [facility] [employer] this procedure are in the results section. POC GLUCOSE SCREEN Routine 11/15/2022 8:21 Result s for AM [facility] [employer] this procedure are in the results section. BLOODCULTURE Now 11/15/2022 7:32 Results for AM [facility] this procedure are in the results section. BLOODCULTURE Now 11/15/2022 5:15 Results for AM [facility] this procedure are in the results section. ANION GAP AM 11/15/2022 2:34 Results for AM [facility] this procedure are in the results section. .GLOMERULAR FILTRATION AM 11/15/2022 2:34 Re sults for RATE [facility] this procedure are in the results section. SERUM CREATININE AM 11/15/2022 2:34 Results for AM [facility] this procedure are in the results section. MANUAL DIFFERENTIAL AM 11/15/2022 2:34 Resul ts for AM [facility] this procedure are in the results section. Results CBC AM 11/15/2022 2:34 Results for AM [facility] this procedure are in the results section. HBV DNA QUANT AM 11/15/2022 2:34 Results for AM [facility] this procedure are in the results section. HEPATITIS B SURFACE AM 11/15/2022 2:34 Resul ts for ANTIBODY, SERUM [facility] this procedu re are in the results section. FIBRINOGEN ACTIVITY Routine 11/15/2022 2:34 Resul ts for AM [facility] this procedure are in the results section. D DIMER Routine 11/15/2022 2:34 Results for AM [facility] this procedure are in the results section. APTT Routine 11/15/2022 2:34 Results for AM [facility] this procedure are in the results section. PROTHROMBIN TIME Routine 11/15/2022 2:34 Results for AM [facility] this procedure are in the results section. LACTATE DEHYDROGENASE AM 11/15/2022 2:34 Res ults for AM [facility] this procedure are in the results section. URIC ACID AM 11/15/2022 2:34 Results for AM [facility] this procedure are in the results section. ALANINE AM 11/15/2022 2:34 Results for AMINOTRANSFERASE [facility] this proced ure are in the results section. ALKALINE PHOSPHATASE AM 11/15/2022 2:34 Resu lts for AM [facility] this procedure are in the results section. FRACTIONATED BILIRUBIN AM 11/15/2022 2:34 Re sults for AM [facility] this procedure are in the results section. PHOSPHORUS LEVEL AM 11/15/2022 2:34 Results for AM [facility] this procedure are in the results section. ALBUMIN LEVEL AM 11/15/2022 2:34 Results for AM [facility] this procedure are in the results section. TOTAL PROTEIN AM 11/15/2022 2:34 Results for AM [facility] this procedure are in the results section. CARBON DIOXIDE LEVEL AM 11/15/2022 2:34 Resu lts for AM [facility] this procedure are in the results section. CHLORIDE LEVEL AM 11/15/2022 2:34 Results fo r [facility] this procedure are in the results section. MAGNESIUM LEVEL AM 11/15/2022 2:34 Results f or [facility] this procedure are in the results section. POTASSIUM LEVEL AM 11/15/2022 2:34 Results f or [facility] this procedure are in the results section. SODIUM LEVEL AM 11/15/2022 2:34 Results for AM [facility] this procedure are in the results section. SERUM CREATININE AM 11/15/2022 2:34 [facility] BLOOD UREA NITROGEN AM 11/15/2022 2:34 Resul ts for AM [facility] this procedure are in the results section. CALCIUM LEVEL TOTAL AM 11/15/2022 2:34 Resul ts for AM [facility] this procedure are in the results section. GLUCOSE, RANDOM AM 11/15/2022 2:34 Results f or [facility] this procedure are in the results section. COMPLETE BLOOD COUNT W/ AM 11/15/2022 2:34 DIFFERENTIAL [facility] POC GLUCOSE SCREEN Routine 11/14/2022 11:03 Resul ts for PM [facility] [employer] this procedure are in the results section. POC GLUCOSE SCREEN Routine 11/14/2022 8:02 Result s for PM [facility] [employer] this procedure are in the results section. POC GLUCOSE SCREEN Routine 11/14/2022 2:24 Result s for PM [facility] this procedure are in the results section. ASPERGILLUS ANTIGEN Routine 11/14/2022 1:11 Resul ts for ASSAY PATH REVIEW [facility] this proce dure are in the results section. BODY FLUID DIFF PATH Now 11/14/2022 1:11 Resu lts for REVIEW [facility] this procedure are in the results section. BODY FLUID Now 11/14/2022 1:11 Results for DIFFERENTIALS [facility] this procedure are in the results section. CELL COUNT BODY FLUID Now 11/14/2022 1:11 Res ults for [facility] this procedure are in the results section. CMV QUANTITATIVE, BAL Now 11/14/2022 1:11 Res ults for [facility] this procedure are in the results section. PNEUMOCYSTIS JIROVECI Now 11/14/2022 1:11 Res ults for QUANT, BAL [facility] this procedure are in the results section. ASPERGILLUS ANTIGEN Now 11/14/2022 1:11 Resul ts for ASSAY [facility] this procedure are in the results section. RESPIRATORY VIRAL Now 11/14/2022 1:11 Results for PANEL, SEND OUT [facility] this procedu re are in the results section. AFB CULTURE W/ SMEAR Now 11/14/2022 1:11 [facility] FUNGUS CULTURE W/ SMEAR Now 11/14/2022 1:11 R esults for PM [facility] this procedure are in the results section. LEGIONELLA CULTURE Now 11/14/2022 1:11 Result s for PM [facility] this procedure are in the results section. LOWER RESPIRATORY Now 11/14/2022 1:11 Results for CULTURE W/ GRAM STAIN [facility] this p rocedure are in the results section. 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 TRANSFUSE PLATELETS Routine 11/14/2022 4:50 AM [facility] POC GLUCOSE SCREEN Routine 11/14/2022 3:57 Result s for AM [facility] this procedure are in the results section. PRBC PRODUCT READY FOR Routine 11/14/2022 2:19 Re sults for BOX CAR CHECKER [facility] this procedure are in the results section. PREPARE RBC Routine 11/14/2022 2:19 Results for AM [facility] this procedure are in the results section. PLT PRODUCT READY FOR Routine 11/14/2022 2:06 Res ults for BOX CAR CHECKER [facility] this procedure are in the results section. PREPARE PLATELETS Routine 11/14/2022 2:06 Results for AM [facility] this procedure are in the results section. TMP INTERPRETATION Routine 11/14/2022 12:45 Resul ts for ANTIBODY SCREEN [facility] this procedu re NEGATIVE are in the results section. CLOT EXPIRATION DATE Routine 11/14/2022 12:45 Res ults for AM [facility] this procedure are in the results section. ANION GAP AM 11/14/2022 12:45 Results for AM [facility] this procedure are in the results section. .GLOMERULAR FILTRATION AM 11/14/2022 12:45 R esults for RATE [facility] this procedure are in the results section. SERUM CREATININE AM 11/14/2022 12:45 Results for AM [facility] this procedure are in the results section. MANUAL DIFFERENTIAL AM 11/14/2022 12:45 Resu lts for AM [facility] [employer] this procedure are in the results section. Results CBC AM 11/14/2022 12:45 Results for AM [facility] this procedure are in the results section. ANTIBODY SCREEN Routine 11/14/2022 12:45 Results for AM [facility] this procedure are in the results section. ABORH Routine 11/14/2022 12:45 Results for AM [facility] this procedure are in the results section. HBV DNA QUANT AM 11/14/2022 12:45 Results fo r [facility] this procedure are in the results section. HEPATITIS B SURFACE AM 11/14/2022 12:45 Resu lts for ANTIBODY, SERUM [facility] this procedu re are in the results section. LACTATE DEHYDROGENASE AM 11/14/2022 12:45 Re sults for AM [facility] this procedure are in the results section. URIC ACID AM 11/14/2022 12:45 Results for AM [facility] this procedure are in the results section. ALANINE AM 11/14/2022 12:45 Results for AMINOTRANSFERASE [facility] this proced ure are in the results section. ALKALINE PHOSPHATASE AM 11/14/2022 12:45 Res ults for AM [facility] this procedure are in the results section. FRACTIONATED BILIRUBIN AM 11/14/2022 12:45 R esults for AM [employer] [employer] this procedure are in the results section. PHOSPHORUS LEVEL AM 11/14/2022 12:45 Results for AM [facility] this procedure are in the results section. ALBUMIN LEVEL AM 11/14/2022 12:45 Results fo r AM [facility] this procedure are in the results section. TOTAL PROTEIN AM 11/14/2022 12:45 Results fo r [facility] this procedure are in the results section. CARBON DIOXIDE LEVEL AM 11/14/2022 12:45 Res ults for AM [facility] this procedure are in the results section. CHLORIDE LEVEL AM 11/14/2022 12:45 Results f or AM [facility] this procedure are in the results section. MAGNESIUM LEVEL AM 11/14/2022 12:45 Results for AM [facility] [employer] this procedure are in the results section. POTASSIUM LEVEL AM 11/14/2022 12:45 Results for AM [facility] [employer] this procedure are in the results section. SODIUM LEVEL AM 11/14/2022 12:45 Results for AM [facility] [employer] this procedure are in the results section. SERUM CREATININE AM 11/14/2022 12:45 AM [facility] BLOOD UREA NITROGEN AM 11/14/2022 12:45 Resu lts for AM [employer] [employer] this procedure are in the results section. CALCIUM LEVEL TOTAL AM 11/14/2022 12:45 Resu lts for AM [employer] [employer] this procedure are in the results section. GLUCOSE, RANDOM AM 11/14/2022 12:45 Results for AM [facility] this procedure are in the results section. COMPLETE BLOOD COUNT W/ AM 11/14/2022 12:45 DIFFERENTIAL [facility] TYPE AND SCREEN Routine 11/14/2022 12:45 AM [facility] POC GLUCOSE SCREEN Routine 11/13/2022 9:58 Result s for PM [facility] [employer] this procedure are in the results section. POC GLUCOSE SCREEN Routine 11/13/2022 6:20 Result s for PM [facility] [employer] this procedure are in the results section. TRANSFUSE RED BLOOD Routine 11/13/2022 3:45 CELLS PM [facility] TRANSFUSE PLATELETS Routine 11/13/2022 12:38 PM [facility] POC GLUCOSE SCREEN Routine 11/13/2022 12:31 Resul ts for PM [employer] this procedure are in the results section. POC GLUCOSE SCREEN Routine 11/13/2022 7:51 Result s for AM [facility] [employer] this procedure are in the results section. PLT PRODUCT READY FOR Routine 11/13/2022 5:02 Res ults for BOX CAR CHECKER [facility] this procedure are in the results section. PREPARE PLATELETS Routine 11/13/2022 5:02 Results for AM [facility] [employer] this procedure are in the results section. PRBC PRODUCT READY FOR Routine 11/13/2022 4:58 Re sults for BOX CAR CHECKER [facility] this procedure are in the results section. PREPARE RBC Routine 11/13/2022 4:58 Results for AM [facility] [employer] this procedure are in the results section. DIFFERENTIAL CANCEL AM 11/13/2022 1:46 Resul ts for AM [employer] this procedure are in the results section. ANION GAP AM 11/13/2022 1:46 Results for AM [facility] [employer] this procedure are in the results section. .GLOMERULAR FILTRATION AM 11/13/2022 1:46 Re sults for RATE [facility] this procedure are in the results section. SERUM CREATININE AM 11/13/2022 1:46 Results for AM [facility] [employer] this procedure are in the results section. Results CBC AM 11/13/2022 1:46 Results for AM [facility] [employer] this procedure are in the results section. HBV DNA QUANT AM 11/13/2022 1:46 Results for AM [facility] this procedure are in the results section. HEPATITIS B SURFACE AM 11/13/2022 1:46 Resul ts for ANTIBODY, SERUM [facility] this procedu re are in the results section. LACTATE DEHYDROGENASE AM 11/13/2022 1:46 Res ults for AM [employer] this procedure are in the results section. URIC ACID AM 11/13/2022 1:46 Results for AM [facility] [employer] this procedure are in the results section. ALANINE AM 11/13/2022 1:46 Results for AMINOTRANSFERASE AM [facility] this proced ure are in the results section. ALKALINE PHOSPHATASE AM 11/13/2022 1:46 Resu lts for AM [employer] this procedure are in the results section. FRACTIONATED BILIRUBIN AM 11/13/2022 1:46 Re sults for AM [employer] this procedure are in the results section. PHOSPHORUS LEVEL AM 11/13/2022 1:46 Results for AM [facility] this procedure are in the results section. ALBUMIN LEVEL AM 11/13/2022 1:46 Results for AM [facility] [employer] this procedure are in the results section. TOTAL PROTEIN AM 11/13/2022 1:46 Results for AM [facility] this procedure are in the results section. CARBON DIOXIDE LEVEL AM 11/13/2022 1:46 Resu lts for AM [employer] this procedure are in the results section. CHLORIDE LEVEL AM 11/13/2022 1:46 Results fo r AM [facility] this procedure are in the results section. MAGNESIUM LEVEL AM 11/13/2022 1:46 Results f or AM [facility] [employer] this procedure are in the results section. POTASSIUM LEVEL AM 11/13/2022 1:46 Results f or AM [facility] [employer] this procedure are in the results section. SODIUM LEVEL AM 11/13/2022 1:46 Results for AM [employer] this procedure are in the results section. SERUM CREATININE AM 11/13/2022 1:46 AM [facility] BLOOD UREA NITROGEN AM 11/13/2022 1:46 Resul ts for AM [employer] this procedure are in the results section. CALCIUM LEVEL TOTAL AM 11/13/2022 1:46 Resul ts for AM [employer] this procedure are in the results section. GLUCOSE, RANDOM AM 11/13/2022 1:46 Results f or AM [facility] this procedure are in the results section. COMPLETE BLOOD COUNT W/ AM 11/13/2022 1:46 DIFFERENTIAL [facility] POC GLUCOSE SCREEN Routine 11/12/2022 11:00 Resul ts for PM [employer] this procedure are in the results section. POC GLUCOSE SCREEN Routine 11/12/2022 6:36 Result s for PM [facility] [employer] this procedure are in the results section. TMP CROSSMATCH STAT 11/12/2022 4:53 Results fo r INTERPRETATION PM [facility] this procedur e are in the results section. TMP INTERPRETATION STAT 11/12/2022 4:53 Result s for MANUAL ANTIBODY SCREEN [facility] this procedure NEGATIVE are in the results section. CLOT EXPIRATION DATE STAT 11/12/2022 4:53 Resu lts for PM [employer] this procedure are in the results section. ABORH MANUAL STAT 11/12/2022 4:53 Results for PM [facility] [employer] this procedure are in the results section. ANTIBODY SCREEN MANUAL STAT 11/12/2022 4:53 Re sults for PM [employer] this procedure are in the results section. TRANSFUSION RXN CULTURE STAT 11/12/2022 4:40 R esults for PM [employer] this procedure are in the results section. XR CHEST 1 VW STAT 11/12/2022 4:04 Results for PM [facility] [employer] this procedure are in the results section. URINALYSIS MICROSCOPIC Routine 11/12/2022 4:03 Re sults for EXAM [facility] this procedure are in the results section. URINALYSIS WITH Now 11/12/2022 4:03 Results f or MICROSCOPIC IF PM [facility] this procedur e INDICATED are in the results section. GENERAL LABORATORY ADD STAT 11/12/2022 3:47 Re sults for ON TEST [facility] this procedure are in the results section. POC ARTERIAL BLOOD GAS Routine 11/12/2022 3:35 Re sults for PM [facility] [employer] this procedure are in the results section. TMP TRANSFUSION STAT 11/12/2022 3:33 Results f or REACTION INTERPRETATION PM [facility] this procedure are in the results section. NT PRO BNP STAT 11/12/2022 3:33 Results for PM [facility] this procedure are in the results section. TRANSFUSION REACTION STAT 11/12/2022 3:33 Resu lts for PM [employer] this procedure are in the results section. POC GLUCOSE SCREEN Routine 11/12/2022 12:32 Resul ts for PM [employer] this procedure are in the results section. TRANSFUSE RED BLOOD Routine 11/12/2022 12:30 CELLS PM [facility] PREPARE PLATELETS Routine 11/12/2022 11:09 Result s for AM [facility] this procedure are in the results section. POC GLUCOSE SCREEN Routine 11/12/2022 8:25 Result s for AM [facility] this procedure are in the results section. LOWER RESPIRATORY Now 11/12/2022 5:52 Result s for CULTURE W/ GRAM STAIN [facility] this p rocedure are in the results section. POC GLUCOSE SCREEN Routine 11/12/2022 5:36 Result s for AM [facility] [employer] this procedure are in the results section. PRBC PRODUCT READY FOR Routine 11/12/2022 3:15 Re sults for BOX CAR CHECKER [facility] this procedure are in the results section. PREPARE RBC Routine 11/12/2022 3:15 Results for AM [facility] this procedure are in the results section. BLOODCULTURE Now 11/12/2022 1:30 Results for AM [facility] [employer] this procedure are in the results section. .ASPERGILLUS ANTIGEN Routine 11/12/2022 1:19 Resu lts for ASSAY, SERUM PATH [facility] this proce dure REVIEW are in the results section. NT PRO BNP AM 11/12/2022 1:19 Results for AM [facility] [employer] this procedure are in the results section. ANION GAP AM 11/12/2022 1:19 Results for AM [facility] this procedure are in the results section. .GLOMERULAR FILTRATION AM 11/12/2022 1:19 Re sults for RATE [facility] this procedure are in the results section. SERUM CREATININE AM 11/12/2022 1:19 Results for AM [facility] this procedure are in the results section. MANUAL DIFFERENTIAL AM 11/12/2022 1:19 Resul ts for AM [employer] this procedure are in the results section. Results CBC AM 11/12/2022 1:19 Results for AM [facility] this procedure are in the results section. FIBRINOGEN ACTIVITY Routine 11/12/2022 1:19 Resul ts for AM [facility] [employer] this procedure are in the results section. D DIMER Routine 11/12/2022 1:19 Results for AM [facility] this procedure are in the results section. APTT Routine 11/12/2022 1:19 Results for AM [facility] this procedure are in the results section. PROTHROMBIN TIME Routine 11/12/2022 1:19 Results for AM [facility] this procedure are in the results section. LACTATE DEHYDROGENASE AM 11/12/2022 1:19 Res ults for AM [facility] this procedure are in the results section. URIC ACID AM 11/12/2022 1:19 Results for AM [facility] this procedure are in the results section. ALANINE AM 11/12/2022 1:19 Results for AMINOTRANSFERASE AM [facility] this proced ure are in the results section. ALKALINE PHOSPHATASE AM 11/12/2022 1:19 Resu lts for AM [employer] this procedure are in the results section. FRACTIONATED BILIRUBIN AM 11/12/2022 1:19 Re sults for AM [employer] this procedure are in the results section. PHOSPHORUS LEVEL AM 11/12/2022 1:19 Results for AM [facility] this procedure are in the results section. ALBUMIN LEVEL AM 11/12/2022 1:19 Results for AM [facility] [employer] this procedure are in the results section. TOTAL PROTEIN AM 11/12/2022 1:19 Results for AM [facility] this procedure are in the results section. CARBON DIOXIDE LEVEL AM 11/12/2022 1:19 Resu lts for AM [facility] this procedure are in the results section. CHLORIDE LEVEL AM 11/12/2022 1:19 Results fo r AM [facility] this procedure are in the results section. MAGNESIUM LEVEL AM 11/12/2022 1:19 Results f or AM [facility] [employer] this procedure are in the results section. POTASSIUM LEVEL AM 11/12/2022 1:19 Results f or AM [facility] [employer] this procedure are in the results section. SODIUM LEVEL AM 11/12/2022 1:19 Results for AM [facility] [employer] this procedure are in the results section. SERUM CREATININE AM 11/12/2022 1:19 AM [facility] BLOOD UREA NITROGEN AM 11/12/2022 1:19 Resul ts for AM [facility] this procedure are in the results section. CALCIUM LEVEL TOTAL AM 11/12/2022 1:19 Resul ts for AM [employer] this procedure are in the results section. GLUCOSE, RANDOM AM 11/12/2022 1:19 Results f or AM [facility] this procedure are in the results section. COMPLETE BLOOD COUNT W/ AM 11/12/2022 1:19 DIFFERENTIAL AM [facility] BLOODCULTURE Now 11/12/2022 1:19 Results for AM [facility] [employer] this procedure are in the results section. ASPERGILLUS ANTIGEN Now 11/12/2022 1:19 Resul ts for ASSAY, SERUM AM [facility] this procedure are in the results section. POC GLUCOSE SCREEN Routine 11/11/2022 9:52 Result s for PM [facility] this procedure are in the results section. POC GLUCOSE SCREEN Routine 11/11/2022 4:46 Result s for PM [facility] this procedure are in the results section. CT CHEST WO CONTRAST STAT 11/11/2022 2:13 Resu lts for PM [employer] this procedure are in the results section. POC GLUCOSE SCREEN Routine 11/11/2022 8:39 Result s for AM [employer] this procedure are in the results section. PRBC PRODUCT READY FOR Routine 11/11/2022 4:03 Re sults for BOX CAR CHECKER [facility] this procedure are in the results section. PREPARE RBC Routine 11/11/2022 4:03 Results for AM [facility] this procedure are in the results section. TMP CROSSMATCH Routine 11/11/2022 2:12 Results fo r INTERPRETATION AM [facility] this procedur e are in the results section. TMP INTERPRETATION Routine 11/11/2022 2:12 Result s for ANTIBODY SCREEN [facility] this procedu re NEGATIVE are in the results section. CLOT EXPIRATION DATE Routine 11/11/2022 2:12 Resu lts for AM [employer] this procedure are in the results section. .GLOMERULAR FILTRATION AM 11/11/2022 2:12 Re sults for RATE [facility] this procedure are in the results section. SERUM CREATININE AM 11/11/2022 2:12 Results for AM [facility] this procedure are in the results section. MANUAL DIFFERENTIAL AM 11/11/2022 2:12 Resul ts for AM [facility] this procedure are in the results section. Results CBC AM 11/11/2022 2:12 Results for AM [facility] [facility] this procedure are in the results section. ANTIBODY SCREEN Routine 11/11/2022 2:12 Results f or [facility] this procedure are in the results section. ABORH Routine 11/11/2022 2:12 Results for AM [facility] this procedure are in the results section. TYPE AND SCREEN Routine 11/11/2022 2:12 AM [facility] ELECTROLYTE PANEL AM 11/11/2022 2:12 Acute leukemia, not Results for AM [facility] otherwise specified this pro cedure are in the results section. LACTATE DEHYDROGENASE AM 11/11/2022 2:12 Res ults for AM [facility] [facility] this procedure are in the results section. URIC ACID AM 11/11/2022 2:12 Results for AM [facility] this procedure are in the results section. ALANINE AM 11/11/2022 2:12 Results for AMINOTRANSFERASE AM [facility] this proced ure are in the results section. ALKALINE PHOSPHATASE AM 11/11/2022 2:12 Resu lts for AM [employer] this procedure are in the results section. FRACTIONATED BILIRUBIN AM 11/11/2022 2:12 Re sults for AM [employer] this procedure are in the results section. PHOSPHORUS LEVEL AM 11/11/2022 2:12 Results for AM [facility] this procedure are in the results section. ALBUMIN LEVEL AM 11/11/2022 2:12 Results for AM [facility] [employer] this procedure are in the results section. TOTAL PROTEIN AM 11/11/2022 2:12 Results for AM [facility] this procedure are in the results section. MAGNESIUM LEVEL AM 11/11/2022 2:12 Results f or AM [facility] this procedure are in the results section. SERUM CREATININE AM 11/11/2022 2:12 AM [facility] BLOOD UREA NITROGEN AM 11/11/2022 2:12 Resul ts for AM [facility] this procedure are in the results section. CALCIUM LEVEL TOTAL AM 11/11/2022 2:12 Resul ts for AM [employer] this procedure are in the results section. GLUCOSE, RANDOM AM 11/11/2022 2:12 Results f or AM [facility] this procedure are in the results section. COMPLETE BLOOD COUNT W/ AM 11/11/2022 2:12 DIFFERENTIAL AM [facility] URINALYSIS MICROSCOPIC Now 11/10/2022 11:09 R esults for PM [facility] this procedure are in the results section. URINE CULTURE Now 11/10/2022 11:09 Results fo r PM [facility] this procedure are in the results section. XR CHEST 1 VW STAT 11/10/2022 10:44 Results fo r PM [facility] this procedure are in the results section. BLOODCULTURE STAT 11/10/2022 10:28 Results for PM [facility] this procedure are in the results section. BLOODCULTURE STAT 11/10/2022 10:13 Results for PM [employer] this procedure are in the results section. POC GLUCOSE SCREEN Routine 11/10/2022 9:18 Result s for PM [facility] this procedure are in the results section. POC GLUCOSE SCREEN Routine 11/10/2022 6:30 Result s for PM [facility] [employer] this procedure are in the results section. TRANSFUSE PLATELETS Routine 11/10/2022 2:24 PM [facility] POC GLUCOSE SCREEN Routine 11/10/2022 1:06 Result s for PM [employer] this procedure are in the results section. C DIFFICILE DNA ASSAY Routine 11/10/2022 12:45 Re sults for PATH REVIEW [facility] this procedure are in the results section. C DIFFICILE DNA ASSAY Now 11/10/2022 12:45 Re sults for PM [facility] this procedure are in the results section. POC GLUCOSE SCREEN Routine 11/10/2022 8:57 Result s for AM [employer] this procedure are in the results section. TRANSFUSE RED BLOOD Routine 11/10/2022 6:16 CELLS AM [facility] PLT PRODUCT READY FOR Routine 11/10/2022 3:22 Res ults for BOX CAR CHECKER [facility] this procedure are in the results section. PREPARE PLATELETS Routine 11/10/2022 3:22 Results for AM [facility] this procedure are in the results section. PRBC PRODUCT READY FOR Routine 11/10/2022 3:21 Re sults for BOX CAR CHECKER [facility] this procedure are in the results section. PREPARE RBC Routine 11/10/2022 3:21 Results for AM [facility] this procedure are in the results section. .GLOMERULAR FILTRATION AM 11/10/2022 2:32 Re sults for RATE [facility] this procedure are in the results section. SERUM CREATININE AM 11/10/2022 2:32 Results for AM [facility] this procedure are in the results section. MANUAL DIFFERENTIAL AM 11/10/2022 2:32 Resul ts for AM [facility] this procedure are in the results section. Results CBC AM 11/10/2022 2:32 Results for AM [facility] this procedure are in the results section. ELECTROLYTE PANEL AM 11/10/2022 2:32 Acute leukemia, not Results for AM [facility] otherwise specified this pro cedure are in the results section. LACTATE DEHYDROGENASE AM 11/10/2022 2:32 Res ults for AM [facility] [facility] this procedure are in the results section. URIC ACID AM 11/10/2022 2:32 Results for AM [facility] this procedure are in the results section. ALANINE AM 11/10/2022 2:32 Results for AMINOTRANSFERASE AM [facility] this proced ure are in the results section. ALKALINE PHOSPHATASE AM 11/10/2022 2:32 Resu lts for AM [facility] this procedure are in the results section. FRACTIONATED BILIRUBIN AM 11/10/2022 2:32 Re sults for AM [facility] this procedure are in the results section. PHOSPHORUS LEVEL AM 11/10/2022 2:32 Results for AM [facility] this procedure are in the results section. ALBUMIN LEVEL AM 11/10/2022 2:32 Results for AM [facility] this procedure are in the results section. TOTAL PROTEIN AM 11/10/2022 2:32 Results for AM [facility] this procedure are in the results section. MAGNESIUM LEVEL AM 11/10/2022 2:32 Results f or [facility] this procedure are in the results section. SERUM CREATININE AM 11/10/2022 2:32 AM [facility] BLOOD UREA NITROGEN AM 11/10/2022 2:32 Resul ts for AM [facility] [employer] this procedure are in the results section. CALCIUM LEVEL TOTAL AM 11/10/2022 2:32 Resul ts for AM [facility] this procedure are in the results section. GLUCOSE, RANDOM AM 11/10/2022 2:32 Results f or AM [facility] this procedure are in the results section. COMPLETE BLOOD COUNT W/ AM 11/10/2022 2:32 DIFFERENTIAL [facility] POC GLUCOSE SCREEN Routine 11/09/2022 9:36 Result s for PM [facility] this procedure are in the results section. MRSA SCREENING CULTURE Now 11/09/2022 9:22 Re sults for PM [facility] [employer] this procedure are in the results section. POC GLUCOSE SCREEN Routine 11/09/2022 8:03 Result s for PM [facility] this procedure are in the results section. POC GLUCOSE SCREEN Routine 11/09/2022 6:32 Result s for PM [facility] [employer] this procedure are in the results section. POC GLUCOSE SCREEN Routine 11/09/2022 6:09 Result s for PM [facility] this procedure are in the results section. TRANSFUSE RED BLOOD Routine 11/09/2022 1:28 CELLS PM [facility] POC GLUCOSE SCREEN Routine 11/09/2022 12:30 Resul ts for PM [facility] this procedure are in the results section. POC GLUCOSE SCREEN Routine 11/09/2022 8:31 Result s for AM [facility] [employer] this procedure are in the results section. PRBC PRODUCT READY FOR Routine 11/09/2022 2:41 Re sults for BOX CAR CHECKER [facility] this procedure are in the results section. PREPARE RBC Routine 11/09/2022 2:41 Results for AM [facility] this procedure are in the results section. .GLOMERULAR FILTRATION AM 11/09/2022 12:36 R esults for RATE [facility] this procedure are in the results section. SERUM CREATININE AM 11/09/2022 12:36 Results for AM [facility] this procedure are in the results section. MANUAL DIFFERENTIAL AM 11/09/2022 12:36 Resu lts for AM [facility] this procedure are in the results section. Results CBC AM 11/09/2022 12:36 Results for AM [facility] this procedure are in the results section. ELECTROLYTE PANEL AM 11/09/2022 12:36 Acute leukemia, not Results for AM [facility] otherwise specified this pro cedure are in the results section. FIBRINOGEN ACTIVITY Routine 11/09/2022 12:36 Resu lts for AM [employer] this procedure are in the results section. D DIMER Routine 11/09/2022 12:36 Results for AM [facility] this procedure are in the results section. APTT Routine 11/09/2022 12:36 Results for AM [facility] [employer] this procedure are in the results section. PROTHROMBIN TIME Routine 11/09/2022 12:36 Results for AM [facility] [employer] this procedure are in the results section. LACTATE DEHYDROGENASE AM 11/09/2022 12:36 Re sults for AM [employer] this procedure are in the results section. URIC ACID AM 11/09/2022 12:36 Results for AM [facility] this procedure are in the results section. ALANINE AM 11/09/2022 12:36 Results for AMINOTRANSFERASE AM [facility] this proced ure are in the results section. ALKALINE PHOSPHATASE AM 11/09/2022 12:36 Res ults for AM [employer] this procedure are in the results section. FRACTIONATED BILIRUBIN AM 11/09/2022 12:36 R esults for AM [employer] this procedure are in the results section. PHOSPHORUS LEVEL AM 11/09/2022 12:36 Results for AM [facility] this procedure are in the results section. ALBUMIN LEVEL AM 11/09/2022 12:36 Results fo r [facility] this procedure are in the results section. TOTAL PROTEIN AM 11/09/2022 12:36 Results fo r AM [facility] this procedure are in the results section. MAGNESIUM LEVEL AM 11/09/2022 12:36 Results for AM [facility] [employer] this procedure are in the results section. SERUM CREATININE AM 11/09/2022 12:36 AM [facility] BLOOD UREA NITROGEN AM 11/09/2022 12:36 Resu lts for AM [employer] this procedure are in the results section. CALCIUM LEVEL TOTAL AM 11/09/2022 12:36 Resu lts for AM [facility] this procedure are in the results section. GLUCOSE, RANDOM AM 11/09/2022 12:36 Results for AM [facility] this procedure are in the results section. COMPLETE BLOOD COUNT W/ AM 11/09/2022 12:36 DIFFERENTIAL [facility] POC GLUCOSE SCREEN Routine 11/08/2022 9:00 Result s for PM [facility] [employer] this procedure are in the results section. POC GLUCOSE SCREEN Routine 11/08/2022 6:04 Result s for PM [facility] [employer] this procedure are in the results section. TMP CROSSMATCH STAT 11/08/2022 5:48 Results fo r INTERPRETATION [facility] this procedur e are in the results section. TMP INTERPRETATION STAT 11/08/2022 5:48 Result s for ANTIBODY SCREEN [facility] this procedu re NEGATIVE are in the results section. CLOT EXPIRATION DATE STAT 11/08/2022 5:48 Resu lts for PM [employer] this procedure are in the results section. ANTIBODY SCREEN STAT 11/08/2022 5:48 Results f or [facility] this procedure are in the results section. ABORH STAT 11/08/2022 5:48 Results for PM [employer] [employer] this procedure are in the results section. TRANSFUSION RXN CULTURE STAT 11/08/2022 5:46 R esults for PM [employer] this procedure are in the results section. TMP TRANSFUSION STAT 11/08/2022 3:34 Results f or REACTION INTERPRETATION [facility] [employer] this procedure are in the results section. URINALYSIS MICROSCOPIC Routine 11/08/2022 3:34 Re sults for EXAM [facility] this procedure are in the results section. URINALYSIS WITH Now 11/08/2022 3:34 Results f or MICROSCOPIC IF PM [facility] this procedur e INDICATED are in the results section. TRANSFUSION REACTION STAT 11/08/2022 3:34 Resu lts for PM FISHER [facility] this procedure are in the results section. POC GLUCOSE SCREEN Routine 11/08/2022 12:06 Resul ts for PM [facility] this procedure are in the results section. TRANSFUSE RED BLOOD Routine 11/08/2022 11:00 CELLS AM [facility] .GLOMERULAR FILTRATION Routine 11/08/2022 8:03 Acute leukemia, not Results for RATE AM [facility] otherwise specified this pro cedure are in the results section. SERUM CREATININE Routine 11/08/2022 8:03 Acute leukemia, not R esults for AM [facility] otherwise specified this pro cedure are in the results section. URIC ACID Routine 11/08/2022 8:03 Acute leukemia, not Resul ts for AM [facility] otherwise specified this pro cedure are in the results section. PHOSPHORUS LEVEL Routine 11/08/2022 8:03 Acute leukemia, not R esults for AM [facility] otherwise specified this pro cedure are in the results section. SERUM CREATININE Routine 11/08/2022 8:03 Acute leukemia, not AM [facility] otherwise specified BLOOD UREA NITROGEN Routine 11/08/2022 8:03 Acute leukemia, no t Results for AM [facility] otherwise specified this pro cedure are in the results section. CALCIUM LEVEL TOTAL Routine 11/08/2022 8:03 Acute leukemia, no t Results for AM [facility] otherwise specified this pro cedure are in the results section. ELECTROLYTE PANEL Routine 11/08/2022 8:03 Acute leukemia, not Results for AM [facility] otherwise specified this pro cedure are in the results section. COVID-19 (SARS-COV-2) Now 11/08/2022 8:03 Res ults for PCR-ASYMPTOMATIC MC AM [facility] this pro cedure are in the results section. POC GLUCOSE SCREEN Routine 11/08/2022 7:58 Result s for AM [facility] this procedure are in the results section. POC GLUCOSE SCREEN Routine 11/08/2022 6:38 Result s for AM [facility] this procedure are in the results section. POC GLUCOSE SCREEN Routine 11/08/2022 3:29 Result s for AM [facility] this procedure are in the results section. PRBC PRODUCT READY FOR Routine 11/08/2022 2:25 Re sults for BOX CAR CHECKER AM [facility] this procedure are in the results section. PREPARE RBC Routine 11/08/2022 2:25 Results for AM [facility] this procedure are in the results section. ANION GAP AM 11/08/2022 1:13 Results for AM [facility] this procedure are in the results section. LACTATE DEHYDROGENASE AM 11/08/2022 1:13 Res ults for AM [facility] this procedure are in the results section. .GLOMERULAR FILTRATION AM 11/08/2022 1:13 Re sults for RATE AM [facility] this procedure are in the results section. SERUM CREATININE AM 11/08/2022 1:13 Results for AM [facility] this procedure are in the results section. MANUAL DIFFERENTIAL AM 11/08/2022 1:13 Resu lts for AM [facility] this procedure are in the results section. Results CBC AM 11/08/2022 1:13 Results for AM [facility] this procedure are in the results section. URIC ACID AM 11/08/2022 1:13 Results for AM [facility] this procedure are in the results section. ALANINE AM 11/08/2022 1:13 Results for AMINOTRANSFERASE AM [facility] this proced ure are in the results section. ALKALINE PHOSPHATASE AM 11/08/2022 1:13 Resu lts for AM [facility] this procedure are in the results section. FRACTIONATED BILIRUBIN AM 11/08/2022 1:13 R esults for AM [facility] this procedure are in the results section. PHOSPHORUS LEVEL AM 11/08/2022 1:13 Results for AM [facility] this procedure are in the results section. ALBUMIN LEVEL AM 11/08/2022 1:13 Results for AM [facility] this procedure are in the results section. TOTAL PROTEIN AM 11/08/2022 1:13 Results for AM [facility] this procedure are in the results section. CARBON DIOXIDE LEVEL AM 11/08/2022 1:13 Resu lts for AM [facility] this procedure are in the results section. CHLORIDE LEVEL AM 11/08/2022 1:13 Results fo r AM [facility] this procedure are in the results section. MAGNESIUM LEVEL AM 11/08/2022 1:13 Results f or AM [facility] this procedure are in the results section. POTASSIUM LEVEL AM 11/08/2022 1:13 Results f or AM [facility] this procedure are in the results section. SODIUM LEVEL AM 11/08/2022 1:13 Results for AM [facility] this procedure are in the results section. SERUM CREATININE AM 11/08/2022 1:13 AM [facility] BLOOD UREA NITROGEN AM 11/08/2022 1:13 Resul ts for AM [facility] this procedure are in the results section. CALCIUM LEVEL TOTAL AM 11/08/2022 1:13 Resul ts for AM [facility] this procedure are in the results section. GLUCOSE, RANDOM AM 11/08/2022 1:13 Results f or AM [facility] this procedure are in the results section. COMPLETE BLOOD COUNT W/ AM 11/08/2022 1:13 DIFFERENTIAL AM [facility] POC GLUCOSE SCREEN Routine 11/07/2022 9:37 Result s for PM [facility] this procedure are in the results section. POC GLUCOSE SCREEN Routine 11/07/2022 5:31 Result s for PM [facility] this procedure are in the results section. 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 CALCIUM LEVEL TOTAL Routine 11/07/2022 4:50 Acute leukemia, no t Results for PM [facility] otherwise specified this pro cedure are in the results section. 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 PLT PRODUCT READY FOR Routine 11/07/2022 3:18 Res ults for BOX CAR CHECKER PM [facility] this procedure are in the results section. PREPARE PLATELETS Routine 11/07/2022 3:18 Results for PM [facility] this procedure are in the results section. BLOODCULTURE Now 11/07/2022 1:27 Results for PM [facility] this procedure are in the results section. POC GLUCOSE SCREEN Routine 11/07/2022 12:19 Resul ts for PM [facility] this procedure are in the results section. BLOODCULTURE Now 11/07/2022 12:16 Results for PM [facility] this procedure are in the results section. .GLOMERULAR FILTRATION Routine 11/07/2022 8:38 Acute leukemia, not Results for RATE AM [facility] otherwise specified this pro cedure are in the results section. SERUM CREATININE Routine 11/07/2022 8:38 Acute leukemia, not R esults for AM [facility] otherwise specified this pro cedure are in the results section. URIC ACID Routine 11/07/2022 8:38 Acute leukemia, not Resul ts for AM [facility] otherwise specified this pro cedure are in the results section. PHOSPHORUS LEVEL Routine 11/07/2022 8:38 Acute leukemia, not R esults for AM [facility] otherwise specified this pro cedure are in the results section. SERUM CREATININE Routine 11/07/2022 8:38 Acute leukemia, not AM [facility] otherwise specified BLOOD UREA NITROGEN Routine 11/07/2022 8:38 Acute leukemia, no t Results for AM [facility] otherwise specified this pro cedure are in the results section. CALCIUM LEVEL TOTAL Routine 11/07/2022 8:38 Acute leukemia, no t Results for AM [facility] otherwise specified this pro cedure are in the results section. ELECTROLYTE PANEL Routine 11/07/2022 8:38 Acute leukemia, not Results for AM [facility] otherwise specified this pro cedure are in the results section. POC GLUCOSE SCREEN Routine 11/07/2022 7:25 Result s for AM [facility] this procedure are in the results section. FRACTIONATED BILIRUBIN Routine 11/07/2022 1:12 Re sults for AM [facility] this procedure are in the results section. TOTAL PROTEIN Routine 11/07/2022 1:12 Results for AM [facility] this procedure are in the results section. ASPARTATE Routine 11/07/2022 1:12 Results for AMINOTRANSFERASE AM [facility] this proced ure are in the results section. ALANINE Routine 11/07/2022 1:12 Results for AMINOTRANSFERASE AM [facility] this proced ure are in the results section. ALKALINE PHOSPHATASE Routine 11/07/2022 1:12 Resu lts for AM [facility] this procedure are in the results section. ALBUMIN LEVEL Routine 11/07/2022 1:12 Results for AM [facility] this procedure are in the results section. MAGNESIUM LEVEL Routine 11/07/2022 1:12 Results f or AM [facility] this procedure are in the results section. MANUAL DIFFERENTIAL AM 11/07/2022 1:12 Resul ts for AM [facility] this procedure are in the results section. Results CBC AM 11/07/2022 1:12 Results for AM [facility] this procedure are in the results section. .GLOMERULAR FILTRATION Routine 11/07/2022 1:12 Acute leukemia, not Results for RATE AM [facility] otherwise specified this pro cedure are in the results section. SERUM CREATININE Routine 11/07/2022 1:12 Acute leukemia, not R esults for AM [facility] otherwise specified this pro cedure are in the results section. URIC ACID Routine 11/07/2022 1:12 Acute leukemia, not Resul ts for AM [facility] otherwise specified this pro cedure are in the results section. PHOSPHORUS LEVEL Routine 11/07/2022 1:12 Acute leukemia, not R esults for AM [facility] otherwise specified this pro cedure are in the results section. SERUM CREATININE Routine 11/07/2022 1:12 Acute leukemia, not AM [facility] otherwise specified BLOOD UREA NITROGEN Routine 11/07/2022 1:12 Acute leukemia, no t Results for AM [facility] otherwise specified this pro cedure are in the results section. CALCIUM LEVEL TOTAL Routine 11/07/2022 1:12 Acute leukemia, no t Results for AM [facility] otherwise specified this pro cedure are in the results section. ELECTROLYTE PANEL Routine 11/07/2022 1:12 Acute leukemia, not Results for AM [facility] otherwise specified this pro cedure are in the results section. COMPLETE BLOOD COUNT W/ AM 11/07/2022 1:12 DIFFERENTIAL AM [facility] POC GLUCOSE SCREEN Routine 11/06/2022 9:50 Result s for PM [facility] this procedure are in the results section. URINALYSIS MICROSCOPIC Routine 11/06/2022 6:45 Re sults for EXAM PM [facility] this procedure are in the results section. URINALYSIS WITH Now 11/06/2022 6:45 Results f or MICROSCOPIC IF PM [facility] this procedur e INDICATED are in the results section. URINE CULTURE Now 11/06/2022 6:45 Results for PM [facility] this procedure are in the results section. POC GLUCOSE SCREEN Routine 11/06/2022 5:14 Result s for PM [facility] this procedure are in the results section. .GLOMERULAR FILTRATION Routine 11/06/2022 4:02 Acute leukemia, not Results for RATE PM [facility] otherwise specified this pro cedure are in the results section. SERUM CREATININE Routine 11/06/2022 4:02 Acute leukemia, not R esults for PM [facility] otherwise specified this pro cedure are in the results section. URIC ACID Routine 11/06/2022 4:02 Acute leukemia, not Resul ts for PM [facility] otherwise specified this pro cedure are in the results section. PHOSPHORUS LEVEL Routine 11/06/2022 4:02 Acute leukemia, not R esults for PM [facility] otherwise specified this pro cedure are in the results section. SERUM CREATININE Routine 11/06/2022 4:02 Acute leukemia, not PM [facility] otherwise specified BLOOD UREA NITROGEN Routine 11/06/2022 4:02 Acute leukemia, no t Results for PM [facility] otherwise specified this pro cedure are in the results section. CALCIUM LEVEL TOTAL Routine 11/06/2022 4:02 Acute leukemia, no t Results for PM [facility] otherwise specified this pro cedure are in the results section. ELECTROLYTE PANEL Routine 11/06/2022 4:02 Acute leukemia, not Results for PM [facility] otherwise specified this pro cedure are in the results section. POC GLUCOSE SCREEN Routine 11/06/2022 1:33 Result s for PM [facility] this procedure are in the results section. POC GLUCOSE SCREEN Routine 11/06/2022 10:15 Resul ts for AM [facility] this procedure are in the results section. POC GLUCOSE SCREEN Routine 11/06/2022 8:57 Result s for AM [facility] this procedure are in the results section. PETCT SUBSEQUENT STAT 11/06/2022 8:41 Results for TREATMENT STRATEGY AM [facility] this proc edure are in the results section. TMP CROSSMATCH Routine 11/06/2022 1:45 Results fo r INTERPRETATION AM [facility] this procedur e are in the results section. CLOT EXPIRATION DATE Routine 11/06/2022 1:45 Resu lts for AM [facility] this procedure are in the results section. TMP INTERPRETATION Routine 11/06/2022 1:45 Result s for ANTIBODY SCREEN AM [facility] this procedu re NEGATIVE are in the results section. ANION GAP AM 11/06/2022 1:45 Results for AM [facility] this procedure are in the results section. LACTATE DEHYDROGENASE AM 11/06/2022 1:45 Res ults for AM [facility] this procedure are in the results section. .GLOMERULAR FILTRATION AM 11/06/2022 1:45 Re sults for RATE AM [facility] this procedure are in the results section. SERUM CREATININE AM 11/06/2022 1:45 Results for AM [facility] this procedure are in the results section. MANUAL DIFFERENTIAL AM 11/06/2022 1:45 Resul ts for AM [facility] this procedure are in the results section. Results CBC AM 11/06/2022 1:45 Results for AM [facility] this procedure are in the results section. ANTIBODY SCREEN Routine 11/06/2022 1:45 Results f or AM [facility] this procedure are in the results section. ABORH Routine 11/06/2022 1:45 Results for AM [facility] this procedure are in the results section. FIBRINOGEN ACTIVITY Routine 11/06/2022 1:45 Resul ts for AM [facility] this procedure are in the results section. D DIMER Routine 11/06/2022 1:45 Results for AM [facility] this procedure are in the results section. APTT Routine 11/06/2022 1:45 Results for AM [facility] this procedure are in the results section. PROTHROMBIN TIME Routine 11/06/2022 1:45 Results for AM [facility] this procedure are in the results section. URIC ACID AM 11/06/2022 1:45 Results for AM [facility] this procedure are in the results section. ALANINE AM 11/06/2022 1:45 Results for AMINOTRANSFERASE AM [facility] this proced ure are in the results section. ALKALINE PHOSPHATASE AM 11/06/2022 1:45 Resu lts for AM [facility] this procedure are in the results section. FRACTIONATED BILIRUBIN AM 11/06/2022 1:45 Re sults for AM [facility] this procedure are in the results section. PHOSPHORUS LEVEL AM 11/06/2022 1:45 Results for AM [facility] this procedure are in the results section. ALBUMIN LEVEL AM 11/06/2022 1:45 Results for AM [facility] this procedure are in the results section. TOTAL PROTEIN AM 11/06/2022 1:45 Results for AM [facility] this procedure are in the results section. CARBON DIOXIDE LEVEL AM 11/06/2022 1:45 Resu lts for AM [facility] this procedure are in the results section. CHLORIDE LEVEL AM 11/06/2022 1:45 Results fo r AM [facility] this procedure are in the results section. MAGNESIUM LEVEL AM 11/06/2022 1:45 Results f or AM [facility] this procedure are in the results section. POTASSIUM LEVEL AM 11/06/2022 1:45 Results f or AM [facility] this procedure are in the results section. SODIUM LEVEL AM 11/06/2022 1:45 Results for AM [facility] this procedure are in the results section. SERUM CREATININE AM 11/06/2022 1:45 AM [facility] BLOOD UREA NITROGEN AM 11/06/2022 1:45 Resul ts for AM [facility] this procedure are in the results section. CALCIUM LEVEL TOTAL AM 11/06/2022 1:45 Resul ts for AM [facility] this procedure are in the results section. GLUCOSE, RANDOM AM 11/06/2022 1:45 Results f or AM [facility] this procedure are in the results section. COMPLETE BLOOD COUNT W/ AM 11/06/2022 1:45 DIFFERENTIAL AM [facility] TYPE AND SCREEN Routine 11/06/2022 1:45 AM [facility] POC GLUCOSE SCREEN Routine 11/05/2022 9:34 Result s for PM [facility] this procedure are in the results section. POC GLUCOSE SCREEN Routine 11/05/2022 6:29 Result s for PM [facility] this procedure are in the results section. POC GLUCOSE SCREEN Routine 11/05/2022 12:42 Resul ts for PM [facility] this procedure are in the results section. POC GLUCOSE SCREEN Routine 11/05/2022 7:02 Result s for AM [facility] this procedure are in the results section. LACTATE DEHYDROGENASE AM 11/05/2022 3:26 Res ults for AM [facility] this procedure are in the results section. ANION GAP AM 11/05/2022 3:26 Results for AM [facility] this procedure are in the results section. .GLOMERULAR FILTRATION AM 11/05/2022 3:26 Re sults for RATE AM [facility] this procedure are in the results section. SERUM CREATININE AM 11/05/2022 3:26 Results for AM [facility] this procedure are in the results section. MANUAL DIFFERENTIAL AM 11/05/2022 3:26 Resul ts for AM [facility] this procedure are in the results section. Results CBC AM 11/05/2022 3:26 Results for AM [facility] this procedure are in the results section. URIC ACID AM 11/05/2022 3:26 Results for AM [facility] this procedure are in the results section. ALANINE AM 11/05/2022 3:26 Results for AMINOTRANSFERASE AM [facility] this proced ure are in the results section. ALKALINE PHOSPHATASE AM 11/05/2022 3:26 Resu lts for AM [facility] this procedure are in the results section. FRACTIONATED BILIRUBIN AM 11/05/2022 3:26 Re sults for AM [facility] this procedure are in the results section. PHOSPHORUS LEVEL AM 11/05/2022 3:26 Results for AM [facility] this procedure are in the results section. ALBUMIN LEVEL AM 11/05/2022 3:26 Results for AM [facility] this procedure are in the results section. TOTAL PROTEIN AM 11/05/2022 3:26 Results for AM [facility] this procedure are in the results section. CARBON DIOXIDE LEVEL AM 11/05/2022 3:26 Resu lts for AM [facility] this procedure are in the results section. CHLORIDE LEVEL AM 11/05/2022 3:26 Results fo r AM [facility] this procedure are in the results section. MAGNESIUM LEVEL AM 11/05/2022 3:26 Results f or AM [facility] this procedure are in the results section. POTASSIUM LEVEL AM 11/05/2022 3:26 Results f or AM [facility] this procedure are in the results section. SODIUM LEVEL AM 11/05/2022 3:26 Results for AM [facility] this procedure are in the results section. SERUM CREATININE AM 11/05/2022 3:26 AM [facility] BLOOD UREA NITROGEN AM 11/05/2022 3:26 Resul ts for AM [facility] this procedure are in the results section. CALCIUM LEVEL TOTAL AM 11/05/2022 3:26 Resul ts for AM [facility] this procedure are in the results section. GLUCOSE, RANDOM AM 11/05/2022 3:26 Results f or AM [facility] this procedure are in the results section. COMPLETE BLOOD COUNT W/ AM 11/05/2022 3:26 DIFFERENTIAL AM [facility] POC GLUCOSE SCREEN Routine 11/04/2022 9:05 Result s for PM [facility] this procedure are in the results section. POC GLUCOSE SCREEN Routine 11/04/2022 6:35 Result s for PM [facility] this procedure are in the results section. POC GLUCOSE SCREEN Routine 11/04/2022 12:12 Resul ts for PM [facility] this procedure are in the results section. POC GLUCOSE SCREEN Routine 11/04/2022 8:10 Result s for AM [facility] this procedure are in the results section. ANION GAP AM 11/04/2022 1:46 Results for AM [facility] this procedure are in the results section. .GLOMERULAR FILTRATION AM 11/04/2022 1:46 Re sults for RATE AM [facility] this procedure are in the results section. SERUM CREATININE AM 11/04/2022 1:46 Results for AM [facility] this procedure are in the results section. MANUAL DIFFERENTIAL AM 11/04/2022 1:46 Resul ts for AM [facility] this procedure are in the results section. Results CBC AM 11/04/2022 1:46 Results for AM [facility] this procedure are in the results section. LACTATE DEHYDROGENASE AM 11/04/2022 1:46 Res ults for AM [facility] this procedure are in the results section. URIC ACID AM 11/04/2022 1:46 Results for AM [facility] this procedure are in the results section. ALANINE AM 11/04/2022 1:46 Results for AMINOTRANSFERASE AM [facility] this proced ure are in the results section. ALKALINE PHOSPHATASE AM 11/04/2022 1:46 Resu lts for AM [facility] this procedure are in the results section. FRACTIONATED BILIRUBIN AM 11/04/2022 1:46 Re sults for AM [facility] this procedure are in the results section. PHOSPHORUS LEVEL AM 11/04/2022 1:46 Results for AM [facility] this procedure are in the results section. ALBUMIN LEVEL AM 11/04/2022 1:46 Results for AM [facility] this procedure are in the results section. TOTAL PROTEIN AM 11/04/2022 1:46 Results for AM [facility] this procedure are in the results section. CARBON DIOXIDE LEVEL AM 11/04/2022 1:46 Resu lts for AM [facility] this procedure are in the results section. CHLORIDE LEVEL AM 11/04/2022 1:46 Results fo r AM [facility] this procedure are in the results section. MAGNESIUM LEVEL AM 11/04/2022 1:46 Results f or AM [facility] this procedure are in the results section. POTASSIUM LEVEL AM 11/04/2022 1:46 Results f or AM [facility] this procedure are in the results section. SODIUM LEVEL AM 11/04/2022 1:46 Results for AM [facility] this procedure are in the results section. SERUM CREATININE AM 11/04/2022 1:46 AM [facility] BLOOD UREA NITROGEN AM 11/04/2022 1:46 Resul ts for AM [facility] this procedure are in the results section. CALCIUM LEVEL TOTAL AM 11/04/2022 1:46 Resul ts for AM [facility] this procedure are in the results section. GLUCOSE, RANDOM AM 11/04/2022 1:46 Results f or AM [facility] this procedure are in the results section. COMPLETE BLOOD COUNT W/ AM 11/04/2022 1:46 DIFFERENTIAL AM [facility] POC GLUCOSE SCREEN Routine 11/03/2022 8:53 Result s for PM [facility] this procedure are in the results section. POC GLUCOSE SCREEN Routine 11/03/2022 6:19 Result s for PM [facility] this procedure are in the results section. POC GLUCOSE SCREEN Routine 11/03/2022 11:39 Resul ts for AM [facility] this procedure are in the results section. POC GLUCOSE SCREEN Routine 11/03/2022 9:42 Result s for AM [facility] this procedure are in the results section. POC GLUCOSE SCREEN Routine 11/03/2022 8:06 Result s for AM [facility] this procedure are in the results section. TMP INTERPRETATION Routine 11/03/2022 2:43 Result s for ANTIBODY SCREEN AM [facility] this procedu re NEGATIVE are in the results section. CLOT EXPIRATION DATE Routine 11/03/2022 2:43 Resu lts for AM [facility] this procedure are in the results section. ANION GAP AM 11/03/2022 2:43 Results for AM [facility] this procedure are in the results section. .GLOMERULAR FILTRATION AM 11/03/2022 2:43 Re sults for RATE AM [facility] this procedure are in the results section. SERUM CREATININE AM 11/03/2022 2:43 Results for AM [facility] this procedure are in the results section. MANUAL DIFFERENTIAL AM 11/03/2022 2:43 Resul ts for AM [facility] this procedure are in the results section. Results CBC AM 11/03/2022 2:43 Results for AM [facility] this procedure are in the results section. ANTIBODY SCREEN Routine 11/03/2022 2:43 Results f or AM [facility] this procedure are in the results section. ABORH Routine 11/03/2022 2:43 Results for AM [facility] this procedure are in the results section. FIBRINOGEN ACTIVITY Routine 11/03/2022 2:43 Resul ts for AM [facility] this procedure are in the results section. D DIMER Routine 11/03/2022 2:43 Results for AM [facility] this procedure are in the results section. APTT Routine 11/03/2022 2:43 Results for AM [facility] this procedure are in the results section. PROTHROMBIN TIME Routine 11/03/2022 2:43 Results for AM [facility] this procedure are in the results section. LACTATE DEHYDROGENASE AM 11/03/2022 2:43 Res ults for AM [facility] this procedure are in the results section. URIC ACID AM 11/03/2022 2:43 Results for AM FISHER [facility] this procedure are in the results section. ALANINE AM 11/03/2022 2:43 Results for AMINOTRANSFERASE AM [facility] this proced ure are in the results section. ALKALINE PHOSPHATASE AM 11/03/2022 2:43 Resu lts for AM [facility] this procedure are in the results section. FRACTIONATED BILIRUBIN AM 11/03/2022 2:43 Re sults for AM [facility] this procedure are in the results section. PHOSPHORUS LEVEL AM 11/03/2022 2:43 Results for AM [facility] this procedure are in the results section. ALBUMIN LEVEL AM 11/03/2022 2:43 Results for AM [facility] this procedure are in the results section. TOTAL PROTEIN AM 11/03/2022 2:43 Results for AM [facility] this procedure are in the results section. CARBON DIOXIDE LEVEL AM 11/03/2022 2:43 Resu lts for AM [facility] this procedure are in the results section. CHLORIDE LEVEL AM 11/03/2022 2:43 Results fo r AM [facility] this procedure are in the results section. MAGNESIUM LEVEL AM 11/03/2022 2:43 Results for AM [facility] this procedure are in the results section. POTASSIUM LEVEL AM 11/03/2022 2:43 Results f or AM [facility] this procedure are in the results section. SODIUM LEVEL AM 11/03/2022 2:43 Results for AM [facility] this procedure are in the results section. SERUM CREATININE AM 11/03/2022 2:43 AM [facility] BLOOD UREA NITROGEN AM 11/03/2022 2:43 Resul ts for AM [facility] this procedure are in the results section. CALCIUM LEVEL TOTAL AM 11/03/2022 2:43 Resul ts for AM [facility] this procedure are in the results section. GLUCOSE, RANDOM AM 11/03/2022 2:43 Results f or [facility] this procedure are in the results section. COMPLETE BLOOD COUNT W/ AM 11/03/2022 2:43 DIFFERENTIAL AM [facility] TYPE AND SCREEN Routine 11/03/2022 2:43 AM [facility] POC GLUCOSE SCREEN Routine 11/02/2022 10:35 Resul ts for PM [facility] this procedure are in the results section. POC GLUCOSE SCREEN Routine 11/02/2022 7:38 Result s for PM [facility] this procedure are in the results section. POC GLUCOSE SCREEN Routine 11/02/2022 1:50 Result s for PM [facility] this procedure are in the results section. .GLOMERULAR FILTRATION Routine 11/02/2022 12:30 R esults for RATE PM [facility] this procedure are in the results section. SERUM CREATININE Routine 11/02/2022 12:30 Results for PM [facility] this procedure are in the results section. ELECTROLYTE PANEL Routine 11/02/2022 12:30 Result s for PM [facility] this procedure are in the results section. BLOOD UREA NITROGEN Routine 11/02/2022 12:30 Resu lts for PM [facility] this procedure are in the results section. GLUCOSE LEVEL Routine 11/02/2022 12:30 Results fo r PM [facility] this procedure are in the results section. URIC ACID Routine 11/02/2022 12:30 Results for PM [facility] this procedure are in the results section. PHOSPHORUS LEVEL Routine 11/02/2022 12:30 Results for PM [facility] this procedure are in the results section. BASIC METABOLIC PANEL, Routine 11/02/2022 12:30 CALCIUM IONIZED PM [facility] COMPLETE BLOOD COUNT W/ Routine 11/02/2022 12:30 Results for INDICES PM [facility] this procedure are in the results section. CALCIUM IONIZED, VENOUS Routine 11/02/2022 12:25 Results for PM [facility] this procedure are in the results section. POC GLUCOSE SCREEN Routine 11/02/2022 10:05 Resul ts for AM [facility] this procedure are in the results section. ANION GAP AM 11/02/2022 2:56 Results for AM [facility] this procedure are in the results section. .GLOMERULAR FILTRATION AM 11/02/2022 2:56 Re sults for RATE AM [facility] this procedure are in the results section. SERUM CREATININE AM 11/02/2022 2:56 Results for AM [facility] this procedure are in the results section. MANUAL DIFFERENTIAL AM 11/02/2022 2:56 Resul ts for AM [facility] this procedure are in the results section. Results CBC AM 11/02/2022 2:56 Results for AM [facility] this procedure are in the results section. LACTATE DEHYDROGENASE AM 11/02/2022 2:56 Res ults for AM [facility] this procedure are in the results section. URIC ACID AM 11/02/2022 2:56 Results for AM [facility] this procedure are in the results section. ALANINE AM 11/02/2022 2:56 Results for AMINOTRANSFERASE AM [facility] this proced ure are in the results section. ALKALINE PHOSPHATASE AM 11/02/2022 2:56 Resu lts for AM [facility] this procedure are in the results section. FRACTIONATED BILIRUBIN AM 11/02/2022 2:56 Re sults for AM [facility] this procedure are in the results section. PHOSPHORUS LEVEL AM 11/02/2022 2:56 Results for AM [facility] this procedure are in the results section. ALBUMIN LEVEL AM 11/02/2022 2:56 Results for AM [facility] this procedure are in the results section. TOTAL PROTEIN AM 11/02/2022 2:56 Results for AM [facility] this procedure are in the results section. CARBON DIOXIDE LEVEL AM 11/02/2022 2:56 Resu lts for AM [facility] this procedure are in the results section. CHLORIDE LEVEL AM 11/02/2022 2:56 Results fo r AM [facility] this procedure are in the results section. MAGNESIUM LEVEL AM 11/02/2022 2:56 Results f or AM [facility] this procedure are in the results section. POTASSIUM LEVEL AM 11/02/2022 2:56 Results f or AM [facility] this procedure are in the results section. SODIUM LEVEL AM 11/02/2022 2:56 Results for AM [facility] this procedure are in the results section. SERUM CREATININE AM 11/02/2022 2:56 AM [facility] BLOOD UREA NITROGEN AM 11/02/2022 2:56 Resul ts for AM [facility] this procedure are in the results section. CALCIUM LEVEL TOTAL AM 11/02/2022 2:56 Resul ts for AM [facility] this procedure are in the results section. GLUCOSE, RANDOM AM 11/02/2022 2:56 Results f or AM [facility] this procedure are in the results section. COMPLETE BLOOD COUNT W/ AM 11/02/2022 2:56 DIFFERENTIAL AM [facility] CALCIUM LEVEL TOTAL Routine 11/01/2022 11:39 Resu lts for PM [facility] this procedure are in the results section. .GLOMERULAR FILTRATION Routine 11/01/2022 11:39 R esults for RATE PM [facility] this procedure are in the results section. SERUM CREATININE Routine 11/01/2022 11:39 Results for PM [facility] this procedure are in the results section. ELECTROLYTE PANEL Routine 11/01/2022 11:39 Result s for PM [facility] this procedure are in the results section. BLOOD UREA NITROGEN Routine 11/01/2022 11:39 Resu lts for PM [facility] this procedure are in the results section. GLUCOSE LEVEL Routine 11/01/2022 11:39 Results fo r PM [facility] this procedure are in the results section. POTASSIUM VENOUS Routine 11/01/2022 11:39 Results for PM [facility] this procedure are in the results section. URIC ACID Routine 11/01/2022 11:39 Results for PM [facility] this procedure are in the results section. BASIC METABOLIC PANEL, Routine 11/01/2022 11:39 CALCIUM TOTAL PM [facility] POC GLUCOSE SCREEN Routine 11/01/2022 9:31 Result s for PM [facility] this procedure are in the results section. POC GLUCOSE SCREEN Routine 11/01/2022 7:16 Result s for PM [facility] this procedure are in the results section. RESPIRATORY VIRAL Now 11/01/2022 2:04 Results for MULTIPLEX PCR PANEL, PM [facility] this pr ocedure NASOPHARYNGEAL SWAB are in t he results section. POC GLUCOSE SCREEN Routine 11/01/2022 1:24 Result s for PM [facility] this procedure are in the results section. TRANSFUSE RED BLOOD Routine 11/01/2022 9:20 CELLS AM [facility] POC GLUCOSE SCREEN Routine 11/01/2022 8:35 Result s for AM [facility] this procedure are in the results section. POC GLUCOSE SCREEN Routine 11/01/2022 6:49 Result s for AM [facility] this procedure are in the results section. PRBC PRODUCT READY FOR Routine 11/01/2022 4:20 Re sults for BOX CAR CHECKER [facility] this procedure are in the results section. PREPARE RBC Routine 11/01/2022 4:20 Results for AM [facility] this procedure are in the results section. OSMOLALITY STAT 11/01/2022 1:36 Results for AM [facility] this procedure are in the results section. BLOODCULTURE Now 11/01/2022 1:36 Results for AM [facility] this procedure are in the results section. ANION GAP AM 11/01/2022 12:49 Results for AM [facility] this procedure are in the results section. .GLOMERULAR FILTRATION AM 11/01/2022 12:49 R esults for RATE AM [facility] this procedure are in the results section. SERUM CREATININE AM 11/01/2022 12:49 Results for AM [facility] this procedure are in the results section. MANUAL DIFFERENTIAL AM 11/01/2022 12:49 Resu lts for AM [facility] this procedure are in the results section. Results CBC AM 11/01/2022 12:49 Results for AM [facility] this procedure are in the results section. LACTATE DEHYDROGENASE AM 11/01/2022 12:49 Re sults for AM [facility] this procedure are in the results section. URIC ACID AM 11/01/2022 12:49 Results for AM [facility] this procedure are in the results section. ALANINE AM 11/01/2022 12:49 Results for AMINOTRANSFERASE AM [facility] this proced ure are in the results section. ALKALINE PHOSPHATASE AM 11/01/2022 12:49 Res ults for AM [facility] this procedure are in the results section. FRACTIONATED BILIRUBIN AM 11/01/2022 12:49 R esults for AM [facility] this procedure are in the results section. PHOSPHORUS LEVEL AM 11/01/2022 12:49 Results for AM [facility] this procedure are in the results section. ALBUMIN LEVEL AM 11/01/2022 12:49 Results fo r AM [facility] this procedure are in the results section. TOTAL PROTEIN AM 11/01/2022 12:49 Results fo r AM [facility] this procedure are in the results section. CARBON DIOXIDE LEVEL AM 11/01/2022 12:49 Res ults for AM [facility] this procedure are in the results section. CHLORIDE LEVEL AM 11/01/2022 12:49 Results f or AM [facility] this procedure are in the results section. MAGNESIUM LEVEL AM 11/01/2022 12:49 Results for AM [facility] this procedure are in the results section. POTASSIUM LEVEL AM 11/01/2022 12:49 Results for AM [facility] this procedure are in the results section. SODIUM LEVEL AM 11/01/2022 12:49 Results for AM [facility] this procedure are in the results section. SERUM CREATININE AM 11/01/2022 12:49 AM [facility] BLOOD UREA NITROGEN AM 11/01/2022 12:49 Resu lts for AM [facility] this procedure are in the results section. CALCIUM LEVEL TOTAL AM 11/01/2022 12:49 Resu lts for AM [facility] this procedure are in the results section. GLUCOSE, RANDOM AM 11/01/2022 12:49 Results for AM [facility] this procedure are in the results section. COMPLETE BLOOD COUNT W/ AM 11/01/2022 12:49 DIFFERENTIAL AM [facility] BLOODCULTURE Now 11/01/2022 12:49 Results for AM [facility] this procedure are in the results section. POC GLUCOSE SCREEN Routine 10/31/2022 10:34 Resul ts for PM [facility] this procedure are in the results section. POC GLUCOSE SCREEN Routine 10/31/2022 7:29 Result s for PM [facility] this procedure are in the results section. POC GLUCOSE SCREEN Routine 10/31/2022 6:41 Result s for PM [facility] this procedure are in the results section. POC GLUCOSE SCREEN Routine 10/31/2022 1:23 Result s for PM [facility] this procedure are in the results section. CT HEAD WO CONTRAST Routine 10/31/2022 1:00 Resul ts for PM [facility] this procedure are in the results section. GENERAL LABORATORY ADD STAT 10/31/2022 12:00 R esults for ON TEST PM [facility] this procedure are in the results section. OSMOLALITY URINE Now 10/31/2022 12:00 Results for PM [facility] this procedure are in the results section. SODIUM URINE Now 10/31/2022 12:00 Results for PM [facility] this procedure are in the results section. POC GLUCOSE SCREEN Routine 10/31/2022 8:43 Result s for AM [facility] this procedure are in the results section. TRANSFUSE RED BLOOD Routine 10/31/2022 5:10 CELLS AM [facility] PRBC PRODUCT READY FOR Routine 10/31/2022 1:32 Re sults for BOX CAR CHECKER [facility] this procedure are in the results section. PREPARE RBC Routine 10/31/2022 1:32 Results for AM [facility] this procedure are in the results section. HEMOGLOBIN A1C AM 10/31/2022 12:44 Results f or AM [facility] this procedure are in the results section. ANION GAP AM 10/31/2022 12:44 Results for AM [facility] this procedure are in the results section. LACTATE DEHYDROGENASE AM 10/31/2022 12:44 Re sults for AM [facility] this procedure are in the results section. .GLOMERULAR FILTRATION AM 10/31/2022 12:44 R esults for RATE AM [facility] this procedure are in the results section. SERUM CREATININE AM 10/31/2022 12:44 Results for AM [facility] this procedure are in the results section. MANUAL DIFFERENTIAL AM 10/31/2022 12:44 Resu lts for AM [facility] this procedure are in the results section. Results CBC AM 10/31/2022 12:44 Results for AM [facility] this procedure are in the results section. FIBRINOGEN ACTIVITY Routine 10/31/2022 12:44 Resu lts for AM [facility] this procedure are in the results section. D DIMER Routine 10/31/2022 12:44 Results for AM [facility] this procedure are in the results section. APTT Routine 10/31/2022 12:44 Results for AM [facility] this procedure are in the results section. PROTHROMBIN TIME Routine 10/31/2022 12:44 Results for AM [facility] this procedure are in the results section. URIC ACID AM 10/31/2022 12:44 Results for AM [facility] this procedure are in the results section. ALANINE AM 10/31/2022 12:44 Results for AMINOTRANSFERASE AM [facility] this proced ure are in the results section. ALKALINE PHOSPHATASE AM 10/31/2022 12:44 Res ults for AM [facility] this procedure are in the results section. FRACTIONATED BILIRUBIN AM 10/31/2022 12:44 R esults for AM [facility] this procedure are in the results section. PHOSPHORUS LEVEL AM 10/31/2022 12:44 Results for AM [facility] this procedure are in the results section. ALBUMIN LEVEL AM 10/31/2022 12:44 Results fo r AM [facility] this procedure are in the results section. TOTAL PROTEIN AM 10/31/2022 12:44 Results fo r AM [facility] this procedure are in the results section. CARBON DIOXIDE LEVEL AM 10/31/2022 12:44 Res ults for AM [facility] this procedure are in the results section. CHLORIDE LEVEL AM 10/31/2022 12:44 Results f or AM [facility] this procedure are in the results section. MAGNESIUM LEVEL AM 10/31/2022 12:44 Results for AM [facility] this procedure are in the results section. POTASSIUM LEVEL AM 10/31/2022 12:44 Results for AM [facility] this procedure are in the results section. SODIUM LEVEL AM 10/31/2022 12:44 Results for AM [facility] this procedure are in the results section. SERUM CREATININE AM 10/31/2022 12:44 AM [facility] BLOOD UREA NITROGEN AM 10/31/2022 12:44 Resu lts for AM [facility] this procedure are in the results section. CALCIUM LEVEL TOTAL AM 10/31/2022 12:44 Resu lts for AM [facility] this procedure are in the results section. GLUCOSE, RANDOM AM 10/31/2022 12:44 Results for AM [facility] this procedure are in the results section. COMPLETE BLOOD COUNT W/ AM 10/31/2022 12:44 DIFFERENTIAL AM [facility] RESEARCH PROTOCOL AM 10/31/2022 12:44 Result s for [id number] [facility] this procedure are in the results section. POC GLUCOSE SCREEN Routine 10/30/2022 10:00 Resul ts for PM [facility] this procedure are in the results section. VRE CULTURE Routine 10/30/2022 9:27 Results for PM [facility] this procedure are in the results section. POC GLUCOSE SCREEN Routine 10/30/2022 5:37 Result s for PM [facility] this procedure are in the results section. POC GLUCOSE SCREEN Routine 10/30/2022 11:17 Resul ts for AM [facility] this procedure are in the results section. HP CG TP53 CEP17 FISH Routine 10/30/2022 9:57 INTERPRETATION AND AM [facility] REPORT HP CG [id number] FISH Routine 10/30/2022 9:57 INTERPRETATION AND AM [facility] REPORT HP MD FLT3 ANALYSIS Routine 10/30/2022 9:57 INTERPRETATION AND AM [facility] REPORT HP MD PRELIMINARY Routine 10/30/2022 9:57 MUTATION ANALYSIS PANEL [facility] INTERPRETATION AND REPORT HP FC ACUTE LEUKEMIA Routine 10/30/2022 9:57 SCREEN INTERPRETATION [facility] AND REPORT HP CG KMT2A(MLL) FISH Routine 10/30/2022 9:57 INTERPRETATION AND AM [facility] REPORT HP CG [id number] Routine 10/30/2022 9:57 T(8;21) FISH [facility] INTERPRETATION AND REPORT HP CG CBFB Routine 10/30/2022 9:57 INV(16)/T(16;16) FISH [facility] INTERPRETATION AND REPORT HP CG CHROMOSOME Routine 10/30/2022 9:57 ANALYSIS INTERPRETATION [facility] AND REPORT HP MD ENDLEUKEMIA Routine 10/30/2022 9:57 MUTATION PANEL V1 [facility] INTERPRETATION AND REPORT HP MD ACUTE LEUKEMIA Routine 10/30/2022 9:57 TRANSLOCATION SCREEN - AM [facility] T(4;11),T(1;19),T(6;9), T(12;21),T(9;22) INTERPRETATION AND REPORT HP MOLECULAR BLOOD Routine 10/30/2022 9:57 Result s for COLLECTION [facility] this procedure are in the results section. HP FC FLOW CYTOMETRY Routine 10/30/2022 9:57 Resu lts for BLOOD COLLECTION [facility] this proced ure are in the results section. ADAPTIVE CLONOSEQ-SEND Now 10/30/2022 9:57 Re sults for OUT, BONE MARROW [facility] this proced ure are in the results section. HP PH-LIKE ALL Now 10/30/2022 9:57 Results for FUSION MULTIPLEX PANEL [facility] this procedure - SEND OUT COLLECTION, are i n the NONBLOOD results section. HP NOTCH1 - EXONS Now 10/30/2022 9:57 Resu lts for 26, 27, 34 COLLECTION, AM [facility] this procedure NONBLOOD are in the results section. HP [id number] MUTATION Now 10/30/2022 9:57 Resu lts for ANALYSIS COLLECTION, AM [facility] this pr ocedure NONBLOOD are in the results section. HP T(9;22) BCR/ABL1 Now 10/30/2022 9:57 Re sults for QUANTITATIVE PCR [facility] this proced ure COLLECTION, NONBLOOD are in the results section. HP JAK2 SEQUENCING Now 10/30/2022 9:57 Res ults for ANALYSIS COLLECTION, AM [facility] this pr ocedure NONBLOOD are in the results section. HP NRAS MUTATION Now 10/30/2022 9:57 Resul ts for ANALYSIS COLLECTION, AM [facility] this pr ocedure NONBLOOD are in the results section. HP KRAS MUTATION Now 10/30/2022 9:57 Resul ts for ANALYSIS COLLECTION, AM [facility] this pr ocedure NONBLOOD are in the results section. HP TP53 COLLECTION, Now 10/30/2022 9:57 Re sults for NONBLOOD [facility] this procedure are in the results section. HP ACUTE LEUKEMIA Now 10/30/2022 9:57 Resu lts for TRANSLOCATION SCREEN - AM [facility] this procedure T(4;11),T(1;19),T(6;9), are in the T(12;21),T(9;22) results COLLECTION, NONBLOOD section . HP CG TP53 CEP17 FISH Now 10/30/2022 9:57 Res ults for COLLECTION, NONBLOOD [facility] this pr ocedure are in the results section. HP CG KMT2A(MLL) FISH Now 10/30/2022 9:57 Res ults for COLLECTION, NONBLOOD [facility] this pr ocedure are in the results section. HP CG PDGFRB FISH Now 10/30/2022 9:57 Results for COLLECTION, NONBLOOD [facility] this pr ocedure are in the results section. HP CG EPOR FISH Now 10/30/2022 9:57 Results f or COLLECTION, NONBLOOD [facility] this pr ocedure are in the results section. HP CG JAK2 FISH Now 10/30/2022 9:57 Results f or COLLECTION, NONBLOOD [facility] this pr ocedure are in the results section. HP CG ABL2 FISH Now 10/30/2022 9:57 Results f or COLLECTION, NONBLOOD [facility] this pr ocedure are in the results section. HP CG CRLF2 FISH Now 10/30/2022 9:57 Results for COLLECTION, NONBLOOD [facility] this pr ocedure are in the results section. HP CG BCR/ABL1 T(9;22) Now 10/30/2022 9:57 Re sults for FISH COLLECTION, [facility] this proced ure NONBLOOD are in the results section. HP CG CHROMOSOME Now 10/30/2022 9:57 Results for ANALYSIS COLLECTION, AM [facility] this pr ocedure NONBLOOD are in the results section. HEMATOPATHOLOGY BONE Routine 10/30/2022 9:51 Acute leukemia, n ot Results for MARROW DIFFERENTIAL [facility] otherwise specified t his procedure are in the results section. 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 CT DIAGNOSTIC BONE Routine 10/30/2022 9:39 Acute leukemia, not Results for MARROW BIOPSIES & AM [facility] otherwise specified thi s procedure ASPIRATIONS are in the results section. ECHOCARDIOGRAM 2D Routine 10/30/2022 9:27 Results for COMPLETE W CONTRAST [facility] this pro cedure are in the results section. URINALYSIS WITH Now 10/30/2022 6:17 Results f or MICROSCOPIC IF AM [facility] this procedur e INDICATED are in the results section. URINE CULTURE Now 10/30/2022 6:17 Results for AM [facility] this procedure are in the results section. HP FC PNH Now 10/30/2022 1:14 INTERPRETATION AND AM [facility] REPORT HP FC FLOW CYTOMETRY Routine 10/30/2022 1:14 Resu lts for BLOOD COLLECTION [facility] this proced ure are in the results section. FRACTIONATED BILIRUBIN Routine 10/30/2022 1:14 Re sults for AM [facility] this procedure are in the results section. TOTAL PROTEIN Routine 10/30/2022 1:14 Results for AM [facility] this procedure are in the results section. ASPARTATE Routine 10/30/2022 1:14 Results for AMINOTRANSFERASE AM [facility] this proced ure are in the results section. ALANINE Routine 10/30/2022 1:14 Results for AMINOTRANSFERASE AM [facility] this proced ure are in the results section. ALKALINE PHOSPHATASE Routine 10/30/2022 1:14 Resu lts for AM [facility] this procedure are in the results section. ALBUMIN LEVEL Routine 10/30/2022 1:14 Results for AM [facility] this procedure are in the results section. CALCIUM LEVEL TOTAL Routine 10/30/2022 1:14 Resul ts for AM [facility] this procedure are in the results section. .GLOMERULAR FILTRATION Routine 10/30/2022 1:14 Re sults for RATE [facility] this procedure are in the results section. SERUM CREATININE Routine 10/30/2022 1:14 Results for AM [facility] this procedure are in the results section. ELECTROLYTE PANEL Routine 10/30/2022 1:14 Results for AM [facility] this procedure are in the results section. BLOOD UREA NITROGEN Routine 10/30/2022 1:14 Resul ts for AM [facility] this procedure are in the results section. GLUCOSE LEVEL Routine 10/30/2022 1:14 Results for AM [facility] this procedure are in the results section. MANUAL DIFFERENTIAL Routine 10/30/2022 1:14 Resul ts for AM [facility] this procedure are in the results section. Results CBC Routine 10/30/2022 1:14 Results for AM [facility] this procedure are in the results section. PROTHROMBIN TIME Routine 10/30/2022 1:14 Results for AM [facility] this procedure are in the results section. PHOSPHORUS LEVEL Routine 10/30/2022 1:14 Results for AM [facility] this procedure are in the results section. MAGNESIUM LEVEL Routine 10/30/2022 1:14 Results f or [facility] this procedure are in the results section. COMPREHENSIVE METABOLIC Routine 10/30/2022 1:14 PANEL [facility] COMPLETE BLOOD COUNT W/ Routine 10/30/2022 1:14 DIFFERENTIAL [facility] HP FC P[facility] COLLECTION, Now 10/30/2022 1:14 Re sults for BLOOD [facility] this procedure are in the results section. PERIPHERAL SMEAR FOR Now 10/30/2022 1:14 Resu lts for BONE MARROW [facility] this procedure are in the results section. EKG, 12-LEAD (PORTABLE) Routine 10/30/2022 POC GLUCOSE SCREEN Routine 10/29/2022 11:01 Resul ts for PM [facility] this procedure are in the results section. VERIFY CATHETER TIP Routine 10/29/2022 9:09 Encounter for Resu lts for PLACEMENT [facility] adjustment and this procedur e management of are in the vascular access results device section. XR CHEST 2 VW Routine 10/29/2022 8:30 Results for PM [facility] this procedure are in the results section. INSERT VASCULAR ACCESS Routine 10/29/2022 7:50 Encounter for R esults for DEVICE [facility] adjustment and this procedur e management of are in the vascular access results device section. AFB CULTURE W/ SMEAR STAT 10/29/2022 7:09 PM [facility] FUNGUS CULTURE W/ SMEAR STAT 10/29/2022 7:09 R esults for PM [facility] this procedure are in the results section. TISSUE/FNA CULTURE STAT 10/29/2022 7:09 Result s for PM [facility] this procedure are in the results section. VASCULAR ACCESS Routine 10/29/2022 6:36 Results f or ULTRASOUND PM FISHER MUSSEL this procedure are in the results section. POC GLUCOSE SCREEN Routine 10/29/2022 6:31 Result s for PM [facility]ER [facility]SEL this procedure are in the results section. PATHOLOGY BIOPSY Now 10/29/2022 6:19 Neoplasm of Results for INTERPRETATION PM FISHER MUSSEL uncertain behavior this pr ocedure of skin are in the results section. CT CHEST WO CONTRAST Routine 10/29/2022 2:42 Resu lts for PM [facility]ER MUSSEL this procedure are in the results section. FOLATE LEVEL STAT 10/29/2022 12:51 Results for PM [facility]ER MUSSEL this procedure are in the results section. CONFIRM ABORH TYPE Now 10/29/2022 12:09 Resul ts for PM FISHER MUSSEL this procedure are in the results section. COVID-19 (SARS-COV-2) Now 10/29/2022 12:04 Re sults for ASYMPTOMATIC-LT PM FISHER MUSSEL this procedu re are in the results section. TMP CROSSMATCH Now 10/29/2022 12:00 Results f or INTERPRETATION PM [facility]ER MUSSEL this procedur e are in the results section. PML STAIN PB STAT 10/29/2022 12:00 Results for PM [facility]ER MUSSEL this procedure are in the results section. PEROXIDASE STAIN PB STAT 10/29/2022 12:00 Resu lts for PM [facility]ER MUSSEL this procedure are in the results section. TMP INTERPRETATION Routine 10/29/2022 12:00 Resul ts for ANTIBODY SCREEN PM [facility]ER MUSSEL this procedu re NEGATIVE are in the results section. CLOT EXPIRATION DATE Routine 10/29/2022 12:00 Res ults for PM [facility]ER MUSSEL this procedure are in the results section. PRELIMINARY STAT 10/29/2022 12:00 Results for DIFFERENTIAL PM [facility]ER MUSSEL this procedure are in the results section. CBC PATHOLOGY REVIEW STAT 10/29/2022 12:00 Res ults for PM [facility]ER MUSSEL this procedure are in the results section. ANION GAP Routine 10/29/2022 12:00 Results for PM [facility]ER MUSSEL this procedure are in the results section. ANTIBODY SCREEN Now 10/29/2022 12:00 Results for PM [facility]ER MUSSEL this procedure are in the results section. ABORH Now 10/29/2022 12:00 Results for PM [facility]ER MUSSEL this procedure are in the results section. .GLOMERULAR FILTRATION Now 10/29/2022 12:00 R esults for RATE PM [facility]ER MUSSEL this procedure are in the results section. SERUM CREATININE Now 10/29/2022 12:00 Results for PM [facility]ER MUSSEL this procedure are in the results section. MANUAL DIFFERENTIAL STAT 10/29/2022 12:00 Resu lts for PM [facility]ER MUSSEL this procedure are in the results section. Results CBC STAT 10/29/2022 12:00 Results for PM [facility]ER MUSSEL this procedure are in the results section. BETA 2 MICROGLOBULIN Now 10/29/2022 12:00 Res ults for PM [facility]ER MUSSEL this procedure are in the results section. HEPATITIS A IGM Now 10/29/2022 12:00 Results for ANTIBODY SERUM PM [facility]ER MUSSEL this procedur e are in the results section. HEPATITIS B SURFACE Now 10/29/2022 12:00 Resu lts for ANTIGEN, SERUM PM [facility]ER [facility]SEL this procedur e are in the results section. HEPATITIS C VIRUS Now 10/29/2022 12:00 Result s for ANTIBODY PM [facility]ER MUSSEL this procedure are in the results section. HEPATITIS B CORE Now 10/29/2022 12:00 Results for ANTIBODY PM [facility]ER MUSSEL this procedure are in the results section. HIV-1/2 ANTIGEN AND Now 10/29/2022 12:00 Resu lts for ANTIBODIES, FOURTH PM FISHER MUSSEL this proc edure GENERATION are in the results section. NT PRO BNP Now 10/29/2022 12:00 Results for PM [facility] MUSSEL this procedure are in the results section. RETICULOCYTE COUNT Now 10/29/2022 12:00 Resul ts for AUTOMATED PM [facility]SEL this procedure are in the results section. FERRITIN LVL Now 10/29/2022 12:00 Results for PM [facility] MUSSEL this procedure are in the results section. VITAMIN B12 LEVEL Now 10/29/2022 12:00 Result s for PM [facility]SEL this procedure are in the results section. THYROID STIMULATING Now 10/29/2022 12:00 Resu lts for HORMONE PM [facility]ER [facility]SEL this procedure are in the results section. URIC ACID Now 10/29/2022 12:00 Results for PM [facility]SEL this procedure are in the results section. LACTATE DEHYDROGENASE Now 10/29/2022 12:00 Re sults for PM [facility]SEL this procedure are in the results section. FRACTIONATED BILIRUBIN Now 10/29/2022 12:00 R esults for PM [facility]SEL this procedure are in the results section. ASPARTATE Now 10/29/2022 12:00 Results for AMINOTRANSFERASE PM [facility]ER MUSSEL this proced ure are in the results section. ALANINE Now 10/29/2022 12:00 Results for AMINOTRANSFERASE PM [facility]ER MUSSEL this proced ure are in the results section. ALKALINE PHOSPHATASE Now 10/29/2022 12:00 Res ults for PM [facility]SEL this procedure are in the results section. TYPE AND SCREEN Now 10/29/2022 12:00 PM [facility]ER [facility]SEL FIBRINOGEN ACTIVITY Now 10/29/2022 12:00 Resu lts for PM [facility]SEL this procedure are in the results section. D DIMER Now 10/29/2022 12:00 Results for PM [facility]SEL this procedure are in the results section. APTT Now 10/29/2022 12:00 Results for PM [facility]SEL this procedure are in the results section. PROTHROMBIN TIME Now 10/29/2022 12:00 Results for PM [facility]ER MUSSEL this procedure are in the results section. PHOSPHORUS LEVEL Now 10/29/2022 12:00 Results for PM [facility]SEL this procedure are in the results section. MAGNESIUM LEVEL Now 10/29/2022 12:00 Results for PM [facility]ER MUSSEL this procedure are in the results section. ALBUMIN LEVEL Now 10/29/2022 12:00 Results fo r PM [facility]SEL this procedure are in the results section. POTASSIUM LEVEL Now 10/29/2022 12:00 Results for PM [facility]SEL this procedure are in the results section. SODIUM LEVEL Now 10/29/2022 12:00 Results for PM [facility]ER MUSSEL this procedure are in the results section. GLUCOSE, RANDOM Now 10/29/2022 12:00 Results for PM [facility]SEL this procedure are in the results section. BLOOD UREA NITROGEN Now 10/29/2022 12:00 Resu lts for PM [facility]ER MUSSEL this procedure are in the results section. SERUM CREATININE Now 10/29/2022 12:00 PM [facility]ER [facility]SEL CARBON DIOXIDE LEVEL Now 10/29/2022 12:00 Res ults for PM [facility]ER [facility]SEL this procedure are in the results section. CHLORIDE LEVEL Now 10/29/2022 12:00 Results f or PM [facility]SEL this procedure are in the results section. CALCIUM LEVEL TOTAL Now 10/29/2022 12:00 Resu lts for PM [facility]SEL this procedure are in the results section. COMPLETE BLOOD COUNT W/ Now 10/29/2022 12:00 DIFFERENTIAL PM [facility]ER [facility]SEL BLOODCULTURE Now 10/29/2022 12:00 Results for PM [facility]SEL this procedure are in the results section. XR CHEST 1 VW Routine 10/29/2022 11:55 Results fo r AM [facility]SEL this procedure are in the results section. after 12/21/2021 Results Glucose, Random (12/20/2022 8:35 AM FISHER MUSSEL)Only the most recent of47 resultswithin the time period is included. P athologist Signature Glucose Random 185 70 - 199 [facility] mg/dL [facility] Comment: Effective 06/14/16, the glucose reference intervals have been updated based on [place] [employer] guidelines (Standards of Medical Care in Diabetes 2016. Diabetes Care 2016; 39: S13-S22). Fasting blood glucose: Normal: 70-99 mg/dL Impaired fasting glucose (increased risk for diabetes or pre-diabetes): 100- 125 mg/dL Diabetes mellitus: >/=126 mg/dL Random blood glucose: Normal: 70-199 mg/dL Note: Random glucose >100 mg/dL is assoc iated with increased risk for diabetes Specimen Anatomical Collection Method Collection Time Receive d Time (Source) Location / / Volume Laterality Blood 12/20/2022 8:35 AM 3 9:28 FISHER MUSSEL AM FISHER MUSSEL Narrative [facility] - 3 9:52 AM FISHER MUSSEL Labs and RR: 12/13/22, 12/15/22, 12/18/22, 12/20/22, 12/22/22 Schedule in Fast Track Nicol Cook NP LAB BLOOD ORDERABLES Performing Organization Address City/State/ZIP [facility] Phon e Number [facility] CANCER Unless otherwise noted, [address] all lab tests performed by: Division of Pathology and Laboratory Medicine [address] [place] [address] .Serum Creatinine (12/20/2022 8:35 AM FISHER MUSSEL)Only the most recent of62 results within the time period is included. P athologist Signature Creatinine 0.93 0.67 - 1.17 [facility] mg/dL [facility] Specimen Anatomical Collection Method Collection Time Receive d Time (Source) Location / / Volume Laterality Blood 12/20/2022 8:35 AM 3 9:28 FISHER MUSSEL AM FISHER MUSSEL Narrative [facility] - 3 9:52 AM FISHER MUSSEL Labs and RR: 12/13/22, 12/15/22, 12/18/22, 12/20/22, 12/22/22 Schedule in Fast Track Nicol Cook NP LAB BLOOD ORDERABLES Performing Organization Address City/[facility]/ZIP [facility] [place] Phon e Number [facility] CANCER Unless otherwise noted, [address] all lab tests performed by: Division of Pathology and Laboratory Medicine [facility] [place] (ABNORMAL) .CBC (12/20/2022 8:35 AM FISHER MUSSEL)Only the most recent of53 resultswithin the time period is included. Analysis Performed At Patho logist Time Signature WBC 1.3 (L) 4.0 - 11.0 [facility] K/uL [facility]ENTER RBC 3.26 (L) 4.50 - [facility] 6.00 M/uL DI[facility]ENTER Hgb 9.1 (L) 14.0 - [facility] 18.0 gm/dL DI[facility]ENTER Hct 27.0 (L) 40.0 - [facility] 54.0 % [facility]ENTER MCV 83 82 - 98 fL [facility] DIAGNOSTIC CENTER MCH 27.9 27.0 - [facility] 31.0 pg DIAGNOSTIC CENTER MCHC 33.7 31.0 - [facility] 36.0 gm/dL DIAG[facility]STIC CENTER RDW-SD 42.5 35.1 - [facility] 46.3 fL DIAGNOSTIC CENTER RDW-CV 14.8 12.0 - [facility] 15.5 % [facility]ENTER Platelet count 135 (L) 140 - 440 [facility] K/uL DIAG[facility]STIC CENTER MPV 10.2 4.0 - 10.4 [facility] fL DIAGNOSTIC CENTER INRBC 0.0 <=0.0 % [facility] DIAGNOSTIC [place] Comment: The INRBC (instrument NRBC) value reflec ts the enumeration of nucleated red blood cells contained i n a 200uL sample of whole blood analyzed by the instrumen t. This value may differ from the NRBC value reported in a manual differential, which is based on a 100 cell differentia l. Specimen Anatomical Collection Method Collection Time Receive d Time (Source) Location / / Volume Laterality Blood 12/20/2022 8:35 AM 3 8:51 FISHER MUSSEL AM FISHER MUSSEL Narrative [facility] - 12/20 10:28 AM FISHER MUSSEL Labs and RR: 12/13/22, 12/15/22, 12/18/22, 12/20/22, 12/22/22 Schedule in Fast Track Nicol Cook NP LAB BLOOD ORDERABLES Performing Organization Address City/State/ZIP Code Phon e Number [facility] DIAGNOSTIC Unless otherwise noted, [place], [place] [address] [place] all lab tests performed by: Division of Pathology and Laboratory Medicine [address] [place] [address] Clot Expiration Date (12/20/2022 8:35 AM FISHER MUSSEL)Only the most recent of21 results within the time period is included. Patholo gist Method Time Signature T & S 12/23/2022 [facility] CANCER [place] Specimen Anatomical Collection Method Collection Time Receive d Time (Source) Location / / Volume Laterality Blood 12/20/2022 8:35 AM 3 9:18 FISHER MUSSEL AM FISHER MUSSEL Nicol Cook NP BLOOD BANK TEST ORDERABLES Performing Organization Address City/[facility]/ZIP Code Phon e Number [facility] CANCER Unless otherwise noted, [address] all lab tests performed by: Division of Pathology and Laboratory Medicine [address] [place] Glomerular Filtration Rate (12/20/2022 8:35 AM FISHER MUSSEL)Only the most recent of62 resultswithin the time period is included. P athologist Signature eGFR 88 >=60 [facility] mL/min/1.73 [facility] sq. m Comment: The eGFRcr is calculated with the 2020 KD-EPI creatinine equation using creatinine, patient's age, and sex for adults 18 years of age and older. Other factors, especially muscle mass, may affect accuracy and need to be considered. According to the Kidney Disease: Improvi ng Global Outcomes (KDIGO) CKD Work Group 2012 Clinical Practice Guideline, chronic kidney disease (CKD) is defined as the abnormalities of kidney structure or function, present for more than 3 months, with implications for health. CKD should be c lassified by cause, GFR category, and albuminuria category. KDIGO guidelines provide the following GFR categories Stage Description GFR mL/min/1.73 m2 G1* Normal or high >= 90 G2* Mildly decreased 60-89 G3a Mildly to moderately decreased 45-59 G3b Moderately to severely decreased 30- 44 G4 Severely decreased 15-29 G5 Kidney failure <15 *In the absence of evidence of kidney da mage, neither G1 nor G2 fulfill criteria for CKD. Specimen Anatomical Collection Method Collection Time Receive d Time (Source) Location / / Volume Laterality Blood 12/20/2022 8:35 AM 3 9:28 FISHER MUSSEL AM FISHER MUSSEL Narrative [facility] - 3 9:52 AM FISHER MUSSEL Labs and RR: 12/13/22, 12/15/22, 12/18/22, 12/20/22, 12/22/22 Schedule in Fast Track Nicol Cook NP LAB BLOOD ORDERABLES Performing Organization Address City/State/ZIP Code Phon e Number [facility] CANCER Unless otherwise noted, [address] all lab tests performed by: Division of Pathology and Laboratory Medicine [address] [place] Fractionated Bilirubin (12/20/2022 8:35 AM FISHER MUSSEL)Only the most recent of50 results within the time period is included. P athologist Signature Bili Total 0.7 <=1.2 mg/dL [facility] Comment: Indocyanine Green (ICG) may cause falsel y elevated bilirubin results. Total and direct bilirubin must not be measured from samples containing indocyanine green. False elevation of total bilirubin can b e seen in patients with IgG concentrations above 28 g/L. Bili Direct 0.2 <=0.3 mg/dL [facility] Comment: Indocyanine Green (ICG) may cau se falsely elevated bilirubin results. Total and direct bilirubin must not be measure d from samples containing indocyanine green. Bili Indirect 0.5 0.0 - 0.9 mg/dL [facility] Specimen Anatomical Collection Method Collection Time Receive d Time (Source) Location / / Volume Laterality Blood 12/20/2022 8:35 AM 3 9:28 FISHER MUSSEL AM FISHER MUSSEL Narrative [facility] - 3 9:52 AM FISHER MUSSEL Labs and RR: 12/13/22, 12/15/22, 12/18/22, 12/20/22, 12/22/22 Nicol Cook NP LAB BLOOD ORDERABLES Performing Organization Address City/State/ZIP Code Phon e Number [facility] CANCER Unless otherwise noted, [place] [address] [place] all lab tests performed by: Division of Pathology and Laboratory Medicine [address] [place] [address] TMP Interpretation Antibody Screen Negative (12/20/2022 8:35 AM FISHER MUSSEL)Only the most recent of18 resultswithin the time period is included. Patholo gist Method Time Signature TMP Auto Neg At the [facility] plasma shows no evidence of RBC alloantibodi es. Comment: MARGARET RODRÍGUEZ, Dictated by: MARGARET RODRÍGUEZ, Dictated Date/Time: 12.20.2022 14:12 PM FISHER MUSSEL Transcribed Date/Time: 02.01.2023 14:12 PM FISHER MUSSEL Electronically Signed By: MARGARET RODRÍGUEZ on 12.20.2022 14:12 PM Specimen Anatomical Collection Method Collection Time Receive d Time (Source) Location / / Volume Laterality Blood 12/20/2022 8:35 AM 3 9:18 FISHER MUSSEL AM FISHER MUSSEL Nicol Cook NP BLOOD BANK TEST ORDERABLES Performing Organization Address City/[facility]/ZIP Code Phon e Number [facility] CANCER Unless otherwise noted, [address] all lab tests performed by: Division of Pathology and Laboratory Medicine [facility] AB[facility]h (12/20/2022 8:35 AM FISHER MUSSEL)Only the most recent of18 resultswithin the time period is included. [facility] ABOR. A POS [facility] Specimen Anatomical Collection Method Collection Time Receive d Time (Source) Location / / Volume Laterality Blood 12/20/2022 8:35 AM 3 9:18 FISHER MUSSEL AM FISHER MUSSEL Narrative [facility] - 3 11:44 AM FISHER MUSSEL Labs and RR: 12/13/22, 12/15/22, 12/18/22, 12/20/22, 12/22/22 Nicol Cook NP BLOOD BANK TEST ORDERABLES Performing Organization Address City/[facility]/ZIP [facility] [place] Phon e Number [facility] CANCER Unless otherwise noted, [address] all lab tests performed by: Division of Pathology and Laboratory Medicine [address] [place] [address] (ABNORMAL) Differential (12/20/2022 8:35 AM FISHER MUSSEL)Only the most recent of35 resultswithin the time period is included. [facility] Total Cells 114 [facility] Neutrophil % 71.0 (H) 42.0 - [facility] 66.0 % DI[facility]IC [facility]ENTER Comment: The Neutrophil count includes B ands. Lymphocyte % 18.0 (L) 24.0 - 44.0 % [facility] Monocyte % 10.0 (H) 2.0 - 7.0 % [facility] Basophil % 1.0 0.0 - 1.0 % [facility] Neutrophil Abs 0.92 (L) 1.70 - 7.30 K/uL [facility] Lymphocyte Abs 0.23 (L) 1.00 - 4.80 K/uL [facility] Monocyte Abs 0.13 0.08 - 0.70 K/uL AR [facility] Basophil Abs 0.01 0.00 - 0.10 K/uL [facility] RBC Morph Present (A) Normal [facility] Anisocytosis Present (A) Not Present [facility] Macrocyte Present (A) Not Present [facility] D IAGNOSTIC CENTER Slide Comments See Note (A) [facility] Comment: PLT: Platelet morphology normal Specimen Anatomical Collection Method Collection Time Receive d Time (Source) Location / / Volume Laterality Blood 12/20/2022 8:35 AM 3 8:51 FISHER MUSSEL AM FISHER MUSSEL Narrative [facility] - 12/20 10:28 AM FISHER MUSSEL Labs and RR: 12/13/22, 12/15/22, 12/18/22, 12/20/22, 12/22/22 Schedule in Fast Track Nicol Cook NP LAB BLOOD ORDERABLES Performing Organization Address City/State/ZIP Code Phon e Number [facility] DIAGNOSTIC Unless otherwise noted, [place], [place] [address] [place] all lab tests performed by: Division of Pathology and Laboratory Medicine [address] [place] [address] Antibody Screen (12/20/2022 8:35 AM FISHER MUSSEL)Only the most recent of18 resultswithin the time period is included. athologist Signature ABSC. Negative ABSC [facility] Specimen Anatomical Collection Method Collection Time Receive d Time (Source) Location / / Volume Laterality Blood 12/20/2022 8:35 AM 3 9:18 FISHER MUSSEL AM FISHER MUSSEL Narrative [facility] - 3 11:44 AM FISHER MUSSEL Labs and RR: 12/13/22, 12/15/22, 12/18/22, 12/20/22, 12/22/22 Nicol Cook NP BLOOD BANK TEST ORDERABLES Performing Organization Address City/[facility]/ZIP Code Phon e Number [facility] CANCER Unless otherwise noted, [place] [address] [place] all lab tests performed by: Division of Pathology and Laboratory Medicine [address] [place] [address] Uric Acid (12/20/2022 8:35 AM FISHER MUSSEL)Only the most recent of54 resultswithin the time period is included. [facility] Uric Acid 3.4 3.4 - 7.0 [facility] mg/dL [facility] Specimen Anatomical Collection Method Collection Time Receive d Time (Source) Location / / Volume Laterality Blood 12/20/2022 8:35 AM 3 9:28 FISHER MUSSEL AM FISHER MUSSEL Narrative [facility] - 3 9:52 AM FISHER MUSSEL Labs and RR: 12/13/22, 12/15/22, 12/18/22, 12/20/22, 12/22/22 Schedule in Fast Track Nicol Cook NP LAB BLOOD ORDERABLES Performing Organization Address City/[facility] Phon e Number [facility] Unless otherwise noted, [address] all lab tests performed by: Division of Pathology and Laboratory Medicine [address] [place] [address] BUN (12/20/2022 8:35 AM FISHER MUSSEL)Only the most recent of62 resultswithin the time period is included. [facility] BUN 10 6 - 23 [facility] mg/dL [facility] Specimen Anatomical Collection Method Collection Time Receive d Time (Source) Location / / Volume Laterality Blood 12/20/2022 8:35 AM 3 9:28 FISHER MUSSEL AM FISHER MUSSEL Narrative [facility] - 3 9:52 AM FISHER MUSSEL Labs and RR: 12/13/22, 12/15/22, 12/18/22, 12/20/22, 12/22/22 Nicol Cook NP LAB BLOOD ORDERABLES Performing Organization Address City/[facility] Phon e Number [facility] CANCER Unless otherwise noted, [address] all lab tests performed by: Division of Pathology and Laboratory Medicine [address] [place] [address] (ABNORMAL) Alanine Aminotransferase (12/20/2022 8:35 AM FISHER MUSSEL)Only the most recent of50 resultswithin the time period is included. P athologist Signature ALT 93 (H) <=41 U/L [facility] Specimen Anatomical Collection Method Collection Time Receive d Time (Source) Location / / Volume Laterality Blood 12/20/2022 8:35 AM 3 9:28 FISHER MUSSEL AM FISHER MUSSEL Narrative [facility] - 3 9:52 AM FISHER MUSSEL Labs and RR: 12/13/22, 12/15/22, 12/18/22, 12/20/22, 12/22/22 Schedule in Fast Track Nicol Cook NP LAB BLOOD ORDERABLES Performing Organization Address City/State/ZIP Code Phon e Number [facility] CANCER Unless otherwise noted, [address] all lab tests performed by: Division of Pathology and Laboratory Medicine [address] [place] Total Protein (12/20/2022 8:35 AM FISHER MUSSEL)Only the most recent of49 resultswithin the time period is included. P athologist Signature Total Protein 6.8 6.4 - 8.3 [facility] g/dL [facility] Specimen Anatomical Collection Method Collection Time Receive d Time (Source) Location / / Volume Laterality Blood 12/20/2022 8:35 AM 3 9:28 FISHER MUSSEL AM FISHER MUSSEL Narrative [facility] - 3 9:52 AM FISHER MUSSEL Labs and RR: 12/13/22, 12/15/22, 12/18/22, 12/20/22, 12/22/22 Schedule in Fast Track Nicol Cook NP LAB BLOOD ORDERABLES Performing Organization Address City/[facility]/ZIP Code Phon e Number [facility] CANCER Unless otherwise noted, [address] all lab tests performed by: Division of Pathology and Laboratory Medicine [address] [place] Phosphorus Level (12/20/2022 8:35 AM FISHER MUSSEL)Only the most recent of57 resultswithin the time period is included. P athologist Signature Phosphorus 4.4 2.5 - 4.5 [facility] mg/dL [facility] Specimen Anatomical Collection Method Collection Time Receive d Time (Source) Location / / Volume Laterality Blood 12/20/2022 8:35 AM 3 9:28 FISHER MUSSEL AM FISHER MUSSEL Narrative [facility] - 3 9:52 AM FISHER MUSSEL Labs and RR: 12/13/22, 12/15/22, 12/18/22, 12/20/22, 12/22/22 Schedule in Fast Track Nicol Cook NP LAB BLOOD ORDERABLES Performing Organization Address City/[facility]/ZIP Code Phon e Number [facility] CANCER Unless otherwise noted, [address] all lab tests performed by: Division of Pathology and Laboratory Medicine [facility] [facility] Alkaline Phosphatase (12/20/2022 8:35 AM FISHER MUSSEL)Only the most recent of50 results within the time period is included. P athologist Signature Alk Phos 112 40 - 129 [facility] U/L [facility] Specimen Anatomical Collection Method Collection Time Receive d Time (Source) Location / / Volume Laterality Blood 12/20/2022 8:35 AM 3 9:28 FISHER MUSSEL AM FISHER MUSSEL Narrative [facility] - 3 9:52 AM FISHER MUSSEL Labs and RR: 12/13/22, 12/15/22, 12/18/22, 12/20/22, 12/22/22 Schedule in Fast Track Nicol Cook NP LAB BLOOD ORDERABLES Performing Organization Address City/[facility]/ZIP Code Phon e Number [facility] CANCER Unless otherwise noted, [address] all lab tests performed by: Division of Pathology and Laboratory Medicine [facility] (ABNORMAL) Magnesium Level (12/20/2022 8:35 AM FISHER MUSSEL)Only the most recent of54 resultswithin the time period is included. P athologist Signature Magnesium 1.2 (L) 1.6 - 2.6 [facility] mg/dL [facility] Specimen Anatomical Collection Method Collection Time Receive d Time (Source) Location / / Volume Laterality Blood 12/20/2022 8:35 AM 3 9:28 FISHER MUSSEL AM FISHER MUSSEL Narrative [facility] - 3 9:52 AM FISHER MUSSEL Labs and RR: 12/13/22, 12/15/22, 12/18/22, 12/20/22, 12/22/22 Schedule in Fast Track Nicol Cook NP LAB BLOOD ORDERABLES Performing Organization Address City/State/ZIP Code Phon e Number [facility] CANCER Unless otherwise noted, [address] all lab tests performed by: Division of Pathology and Laboratory Medicine [address] [place] LDH (12/20/2022 8:35 AM FISHER MUSSEL)Only the most recent of42 resultswithin the time period is included. athologist Signature LDH 195 135 - 225 [facility] U/L [facility] CENTER Comment: Results greater than 1651 U/L m ay not be reliable due to matrix effect with extended dilution as it exceeds the manu facturer's recommended limit. Caution should be exercised when interpreting such valu es and done in conjunction with clinical context. Specimen Anatomical Collection Method Collection Time Receive d Time (Source) Location / / Volume Laterality Blood 12/20/2022 8:35 AM 3 9:23 FISHER MUSSEL AM FISHER MUSSEL Narrative [facility] - 3 9:44 AM FISHER MUSSEL Labs and RR: 12/13/22, 12/15/22, 12/18/22, 12/20/22, 12/22/22 Schedule in Fast Track Nicol Cook NP LAB BLOOD ORDERABLES Performing Organization Address City/[facility] Code Phon e Number [facility] CANCER Unless otherwise noted, [address] all lab tests performed by: Division of Pathology and Laboratory Medicine [address] [place] Calcium Level (12/20/2022 8:35 AM FISHER MUSSEL)Only the most recent of57 resultswithin the time period is included. athologist Signature Calcium Lvl 8.9 8.4 - 10.2 [facility] mg/dL [facility] Specimen Anatomical Collection Method Collection Time Receive d Time (Source) Location / / Volume Laterality Blood 12/20/2022 8:35 AM 3 9:28 FISHER MUSSEL AM FISHER MUSSEL Narrative [facility] - 3 9:52 AM FISHER MUSSEL Labs and RR: 12/13/22, 12/15/22, 12/18/22, 12/20/22, 12/22/22 Schedule in Fast Track Nicol Cook NP LAB BLOOD ORDERABLES Performing Organization Address City/State/[facility] Phon e Number [facility] CANCER Unless otherwise noted, [address] all lab tests performed by: Division of Pathology and Laboratory Medicine [address] (ABNORMAL) Albumin Level (12/20/2022 8:35 AM FISHER MUSSEL)Only the most recent of50 resultswithin the time period is included. athologist Signature Albumin Lvl 3.0 (L) 3.5 - 5.2 [facility] gm/dL [facility] Specimen Anatomical Collection Method Collection Time Receive d Time (Source) Location / / Volume Laterality Blood 12/20/2022 8:35 AM 3 9:28 FISHER MUSSEL AM FISHER MUSSEL Narrative [facility] - 3 9:52 AM FISHER MUSSEL Labs and RR: 12/13/22, 12/15/22, 12/18/22, 12/20/22, 12/22/22 Schedule in Fast Track Nicol Cook NP LAB BLOOD ORDERABLES Performing Organization Address [facility] Phon e Number [facility] CANCER Unless otherwise noted, [address] all lab tests performed by: Division of Pathology and Laboratory Medicine [address] [place] (ABNORMAL) Electrolyte Panel (12/20/2022 8:35 AM FISHER MUSSEL)Only the most recent of19 resultswithin the time period is included. athologist Signature Sodium Lvl 141 136 - 145 [facility] mEq/L [facility] Potassium Lvl 2.6 (L) 3.5 - 5.1 [facility] mEq/L [facility] Chloride 104 98 - 107 [facility] mEq/L [facility] CO2 26 22 - 29 [facility] mEq/L [facility] Anion Gap 11 4 - 14 [facility] mEq/L [facility] Specimen Anatomical Collection Method Collection Time Receive d Time (Source) Location / / Volume Laterality Blood 12/20/2022 8:35 AM 3 9:28 FISHER MUSSEL AM FISHER MUSSEL Narrative [facility] - 3 11:34 AM FISHER MUSSEL Labs and RR: 12/13/22, 12/15/22, 12/18/22, 12/20/22, 12/22/22 Schedule in Fast Track Nicol Cook NP LAB BLOOD ORDERABLES Performing Organization Address [facility] Phon e Number [facility] CANCER Unless otherwise noted, [place] [address] CENTER all lab tests performed by: Division of Pathology and Laboratory Medicine [address] [place] [address] (ABNORMAL) POC Glucose Screen (12/18/2022 1:24 PM FISHER MUSSEL)Only the most recent of209 resultswithin the time period is included. athologist Signature POC Glucose 256 (H) 70 - 99 POC [facility] mg/dL Comment: RN Notified Capillary blood samples, e.g. obtained b y fingerstick, may have inaccurate results in patients with decreased peripheral blood flow. All POC Glucose screen test results, inc luding critical values, must be interpreted and evaluated in the context of the patients clinical findings. It is recommended to confirm any questionable test results by core lab methodology. Method description: All results are ramonita ured using Electrochemistry test methodology. The glucose in the sample mixes with the reagents on the test strip. The reaction produces an electric current. The amount of current produced is proportion al to the glucose concentration in the blood. PO Sample Type Capillary POC [facility] Performing Lab [facility] POC TEL[facility] R Comment: [facility], [address] [place] [address], [place] [address]; Lab Direct or: Destiny Ventura MD; Waived Point of Care Testing - Jigna Orr MD Specimen Anatomical Collection Method Collection Time Receive d Time (Source) Location / / Volume Laterality Blood 12/18/2022 1:24 PM 3 1:24 FISHER MUSSEL PM FISHER MUSSEL Fiona Islas MD POCT ORDERABLES - DEVICE Performing Organization Address [facility] Phon e Number POC [facility] Unless otherwise noted, [place] [address] lab tests performed by: Division of Pathology and Laboratory Medicine [address] [place] [address] Anion Gap (12/18/2022 12:49 AM FISHER MUSSEL)Only the most recent of41 resultswithin the time period is included. athologist [facility] Anion Gap 11 4 - 14 [facility] mEq/L [facility]ENTER Specimen Anatomical Collection Method Collection Time Receive d Time (Source) Location / / Volume Laterality Blood 12/18/2022 12:49 12/18/2022 1:12 AM FISHER MUSSEL AM FISHER MUSSEL Rosa Maria Orantes [employer] LAB BLOOD ORDERABLES Performing Organization Address City/[facility]/ZIP [facility] Phon e Number [facility] CANCER Unless otherwise noted, [address] all lab tests performed by: Division of Pathology and Laboratory Medicine [address] (ABNORMAL) NT-Pro BNP (In-House) (12/18/2022 12:49 AM FISHER MUSSEL)Only the most recent of10 resultswithin the time period is included. P athologist Signature NT ProBNP 1,776 (H) <=125 pg/mL [facility] Specimen Anatomical Collection Method Collection Time Receive d Time (Source) Location / / Volume Laterality Blood 12/18/2022 12:49 12/18/2022 AM FISHER MUSSEL 12:59 AM FISHER MUSSEL Rosa Maria Orantes [employer] LAB BLOOD ORDERABLES Performing Organization Address [facility] Phon e Number [facility] CANCER Unless otherwise noted, [address] all lab tests performed by: Division of Pathology and Laboratory Medicine [address] [place] (ABNORMAL) Aspartate Aminotransferase (12/18/2022 12:49 AM FISHER MUSSEL)Only the most recent of31 resultswithin the time period is included. P athologist Signature AST 47 (H) <=40 U/L [facility] Specimen Anatomical Collection Method Collection Time Receive d Time (Source) Location / / Volume Laterality Blood 12/18/2022 12:49 12/18/2022 1:12 AM FISHER MUSSEL AM FISHER MUSSEL Rosa Maria Orantes [employer] LAB BLOOD ORDERABLES Performing Organization Address [facility] Phon e Number [facility] CANCER Unless otherwise noted, [address] all lab tests performed by: Division of Pathology and Laboratory Medicine [address] Sodium Level (12/18/2022 12:49 AM FISHER MUSSEL)Only the most recent of41 resultswithin the time period is included. P athologist Signature Sodium Lvl 141 136 - 145 [facility] mEq/L [facility] CENTER Specimen Anatomical Collection Method Collection Time Receive d Time (Source) Location / / Volume Laterality Blood 12/18/2022 12:49 12/18/2022 1:12 AM FISHER MUSSEL AM FISHER MUSSEL Rosa Maria Orantes [employer] LAB BLOOD ORDERABLES Performing Organization Address City/[facility]/ZIP [facility] Phon e Number [facility] CANCER Unless otherwise noted, [address] all lab tests performed by: Division of Pathology and Laboratory Medicine [address] [place] (ABNORMAL) Potassium Level (12/18/2022 12:49 AM FISHER MUSSEL)Only the most recent of49 resultswithin the time period is included. P athologist Signature Potassium Lvl 3.1 (L) 3.5 - 5.1 [facility] mEq/L [facility] Specimen Anatomical Collection Method Collection Time Receive d Time (Source) Location / / Volume Laterality Blood 12/18/2022 12:49 12/18/2022 1:12 AM FISHER MUSSEL AM FISHER MUSSEL Rosa Maria Orantes [employer] LAB BLOOD ORDERABLES Performing Organization Address [facility] Phon e Number [facility] Unless otherwise noted, [address] all lab tests performed by: Division of Pathology and Laboratory Medicine [address] [place] Chloride Level (12/18/2022 12:49 AM FISHER MUSSEL)Only the most recent of41 resultswithin the time period is included. P athologist Signature Chloride 107 98 - 107 [facility] mEq/L [facility] Specimen Anatomical Collection Method Collection Time Receive d Time (Source) Location / / Volume Laterality Blood 12/18/2022 12:49 12/18/2022 1:12 AM FISHER MUSSEL AM FISHER MUSSEL Rosa Maria Orantes [employer] LAB BLOOD ORDERABLES Performing Organization Address City/[facility] Phon e Number [facility] CANCER Unless otherwise noted, [address] all lab tests performed by: Division of Pathology and Laboratory Medicine [address] [place] Carbon Dioxide Level (12/18/2022 12:49 AM FISHER MUSSEL)Only the most recent of41 results within the time period is included. P athologist Signature CO2 23 22 - 29 [facility] mEq/L [facility] Specimen Anatomical Collection Method Collection Time Receive d Time (Source) Location / / Volume Laterality Blood 12/18/2022 12:49 12/18/2022 1:12 AM FISHER MUSSEL AM FISHER MUSSEL Rosa Maria Orantes APN LAB BLOOD ORDERABLES Performing Organization Address City/State/ZIP Code Phon e Number [facility] CANCER Unless otherwise noted, [place], [place] [id number] [place] [address] all lab tests performed by: Division of Pathology and Laboratory Medicine [address] [facility], 12-Lead (Portable) (12/18/2022)Only the most recent of4 resultswithin the time period is included. Specimen (Source) Anatomical Location Collection Method / Collectio n Time Received Time / Laterality Volume Narrative This result has an attachment that is no t available. Fiona Islas MD ECG ORDERABLES Performing Organization Address City/State/ZIP Code Phon e Number [facility] US Upper Extremity Limited Left (12/17/2022 2:44 PM FISHER MUSSEL) Anatomical Region Laterality Modality Arm, Extremity Left Ultrasound Specimen (Source) Anatomical Collection Method Collection Time Re ceived Time Location / / Volume Laterality 12/17/2022 3:07 PM FISHER MUSSEL Impressions 12/17/2022 3:56 PM FISHER MUSSEL Left axillary subcutaneous edema with we ll-circumscribed fluid collections measuring up to 2.5 cm, which may represent microabscesses in the setting of fungal pneumonia. Other considerations include raphael kemia cutis given the patient's history of prior biopsy confirmed diagnosis. Consider tissue sampling as clinically indicated. I personally reviewed these image(s) chilo ayala with the resident's/fellow's interpretations, certify that if a procedure was performed I was physically present, and agree with the final report. Narrative 12/17/2022 3:56 PM FISHER MUSSEL FULL RESULT: Examination: US UPPER EXTREMITY LIMITE D LEFT, 12/17/2022 2:44 PM Clinical History: 72 y.o. male with acut e myeloid leukemia and presumed fungal pneumonia and prior history of leukemia cutis Indication: Palpable Nodules Comparison: CT chest PE study dated Technique: Grayscale and color Doppler evaluation of the left axilla was performed. Findings: Scattered mild subcutaneous edema in the left axillary region. There is a relatively well-circumscribed fluid collection measuring approximately 2.5 x 1.6 x 0.9 cm with peripheral vascularity on Doppler . Additional smaller fluid collections a re also seen. Alternatively these could represent necrotic nodules. However, they appear to be entirely new since the CT of the chest of 12/12/22 which would argue for an infectious etiology given the sp eed of development. Procedure Note Tunde Mitchell MD - 12/17/2022 FULL RESULT: Examination: US UPPER EXTREMITY LIMITED LEFT, 12/17/2022 2:44 PM Clinical History: 72 y.o. male with acut e myeloid leukemia and presumed fungal pneumonia and prior history of leukemia cutis Indication: Palpable Nodules Comparison: CT chest PE study dated 12/12 Technique: Grayscale and color Doppler e valuation of the left axilla was performed. Findings: Scattered mild subcutaneous edema in the left axillary region. There is a relatively well-circumscribed fluid collection measuring approximately 2.5 x 1.6 x 0.9 cm with peripheral vascularity on Doppler. Additional smaller fluid collections are also seen. Alterna tively these could represent necrotic nodules. However, they appear to be entirely new since the CT of the chest of 12/12/22 which would argue for an infectious etiology given the speed of development. IMPRESSION: Left axillary subcutaneous edema with we ll-circumscribed fluid collections measuring up to 2.5 cm, which may represent microabscesses in the setting of fungal pneumonia. Other considerations include leukemia cutis given the patient's history of prior biopsy confir med diagnosis. Consider tissue sampling as clinically indicated. I personally reviewed these image(s) chilo ng with the resident's/fellow's interpretations, certify that if a procedure was performed I was physically present, and agree with the final report. Fiona Islas MD [facility] US ORDERABLES aPTT (12/17/2022 5:33 AM FISHER MUSSEL)Only the most recent of34 resultswithin the time period is included. P athologist Signature aPTT 34.2 22.8 - 34.2 [facility](s) CANCER CENTER Specimen Anatomical Collection Method Collection Time Receive d Time (Source) Location / / Volume Laterality Blood 12/17/2022 5:33 AM 3 5:51 FISHER MUSSEL AM FISHER MUSSEL Rosa Maria Orantes APN LAB BLOOD ORDERABLES Performing Organization Address City/State/ZIP Code Phon e Number [facility] CANCER Unless otherwise noted, [address] all lab tests performed by: Division of Pathology and Laboratory Medicine [address] [place] (ABNORMAL) Prothrombin Time (12/17/2022 5:33 AM FISHER MUSSEL)Only the most recent of36 resultswithin the time period is included. athologist [facility] PT 18.0 (H) 11.9 - 14.1 [facility](s) [facility] CENTER INR 1.51 (H) 0.89 - 1.10 [facility] Specimen Anatomical Collection Method Collection Time Receive d Time (Source) Location / / Volume Laterality Blood 12/17/2022 5:33 AM 3 5:51 FISHER MUSSEL AM FISHER MUSSEL Rosa Maria Orantes APN LAB BLOOD ORDERABLES Performing Organization Address City/[facility]/ZIP [facility] Phon e Number [facility] CANCER Unless otherwise noted, [address] all lab tests performed by: Division of Pathology and Laboratory Medicine [facility] [place] (ABNORMAL) Fibrinogen (12/17/2022 5:33 AM FISHER MUSSEL)Only the most recent of32 results within the time period is included. athologist [facility] Fibrinogen 615 (H) 214 - 503 [facility] mg/dL [facility] Specimen Anatomical Collection Method Collection Time Receive d Time (Source) Location / / Volume Laterality Blood 12/17/2022 5:33 AM 3 5:51 FISHER MUSSEL AM FISHER MUSSEL Rosa Maria Orantes APN LAB BLOOD ORDERABLES Performing Organization Address City/[facility] Phon e Number [facility] CANCER Unless otherwise noted, [address] all lab tests performed by: Division of Pathology and Laboratory Medicine [facility] [place] (ABNORMAL) D-Dimer (12/17/2022 5:33 AM FISHER MUSSEL)Only the most recent of16 results within the time period is included. athologist [facility] D-Dimer 1.34 (H) 0.10 - 0.50 [facility] mcg/ml U CAN[facility]ER CENTER Comment: The cut off value for exclusion of venou s thromboembolism is <0.51 mcg/mL FEUs (fibrinogen equival ent units). Specimen Anatomical Collection Method Collection Time Receive d Time (Source) Location / / Volume Laterality Blood 12/17/2022 5:33 AM 3 5:51 FISHER MUSSEL AM FISHER MUSSEL Rosa Maria Orantes APN LAB BLOOD ORDERABLES Performing Organization Address City/[facility]/ZIP Code Phon e Number [facility] CANCER Unless otherwise noted, [address] all lab tests performed by: Division of Pathology and Laboratory Medicine [address] [place] (ABNORMAL) Lower Respiratory Culture w/Gram Stain (12/16/2022 10:52 PM FISHER MUSSEL)Only the most recent of6 resultswithin the time period is included. Component Value Ref Test Analysis Performed At [facility] gist Range Method Time Signature Final Report Normal site mariama present. AR Generally of low significance. SHARON Correlate with clinical data and culture history. CAN[facility]ER (A[facility] CENTER Path Review The results have been review ed and electronically signed by Pathologist: AR MD BRODY GRIFFIN MD #[id number] A [facility] (A) [facility]ER CENTER Gram Stain Epithelial cells seen MARILY COVARRUBIAS Report No WBC's seen. SHARON Moderate Gram Positive Cocci C ANCER Gram stain indicative of saliva [place] (A) Specimen Anatomical Collection Method Collection Time Receive d Time (Source) Location / / Volume Laterality Sputum Induced 12/16/2022 10:52 3 PM FISHER MUSSEL 12:09 AM FISHER MUSSEL Fiona Islas MD MICROBIOLOGY - GENERAL ORDER ANABELA Performing Organization Address City/[facility] Code Phon e Number [facility] CANCER Unless otherwise noted, [address] all lab tests performed by: Division of Pathology and Laboratory Medicine [address] [place] Posaconazole Level (12/16/2022 2:52 AM FISHER MUSSEL)Only the most recent of3 results within the time period is included. athologist Signature Posacnaz 3530 >700 ng/mL AR MD HERRERA Lvl-[facility] Comment: ADDITIONAL INFORMATIO N This test was developed and its performa nce characteristics determined by [facility] in a manner co nsistent with CLIA requirements. This test has not been daniel ared or approved by the U.S. Food and Drug Administration. Test Performed by: [facility] [address] [facility], [place], [place] [address] Fruit Picker: Tristan Amos M.D. Ph. D.; CLIA# [id number] Specimen Anatomical Collection Method Collection Time Receive d Time (Source) Location / / Volume Laterality Blood 12/16/2022 2:52 AM 3 3:45 FISHER MUSSEL AM FISHER MUSSEL Narrative [facility] - 3 1:55 PM FISHER MUSSEL Drug level should ideally be drawn as a trough prior to administration of the next dose. Shaggy Bennett MD LAB BLOOD ORDERABLES Performing Organization Address City/State/[facility] Phon e Number [facility] Unless otherwise noted, [address] all lab tests performed by: Division of Pathology and Laboratory Medicine [facility] (ABNORMAL) Glucose Level (12/14/2022 3:19 PM FISHER MUSSEL)Only the most recent of8 resultswithin the time period is included. athologist Signature Glucose Level 221 (H) 70 - 99 [facility] mg/dL [facility]ENTER Comment: Effective 06/14/16, the glucose reference intervals have been updated based on [place] [employer] guidelines (Standards of Medical Care in Diabetes 2016. Diabetes Care 2016; 39: S13-S22). Fasting blood glucose: Normal: 70-99 mg/dL Impaired fasting glucose (increased risk for diabetes or pre-diabetes): 100- 125 mg/dL Diabetes mellitus: >/=126 mg/dL Random blood glucose: Normal: 70-199 mg/dL Note: Random glucose >100 mg/dL is assoc iated with increased risk for diabetes Specimen Anatomical Collection Method Collection Time Receive d Time (Source) Location / / Volume Laterality Blood 12/14/2022 3:19 PM 3 3:40 FISHER MUSSEL PM FISHER MUSSEL Rosa Maria Orantes APN LAB BLOOD ORDERABLES Performing Organization Address City/[facility] Phon e Number [facility] Unless otherwise noted, [address] all lab tests performed by: Division of Pathology and Laboratory Medicine [address] [place] Transfuse RBC:Transfusion Date: 12/14/2022 (12/14/2022 12:05 PM FISHER MUSSEL)Only the most recent of19 resultswithin the time period is included. Fiona Islas MD BLOOD TRANSFUSION ORDERABLES RBC Product Ready for Heating Element Builder (12/14/2022 5:02 AM FISHER MUSSEL)Only the most recent of19 resultswithin the time period is included. Analysis Performed At Patho logist Time Signature PRBC Product B2 Blood [place] Ready for Pick Bank [facility] Comment: Product is ready for pickle solution maker on December 14, 2022 06:14:48 FISHER MUSSEL. Specimen Anatomical Collection Method Collection Time Receive d Time (Source) Location / / Volume Laterality Blood 12/14/2022 5:02 AM 5:02 FISHER MUSSEL AM FISHER MUSSEL Fiona Islas MD BLOOD BANK PRODUCT ORDERABLE S Performing Organization Address City/State/ZIP Code Phon e Number [facility] Unless otherwise noted, [address] all lab tests performed by: Division of Pathology and Laboratory Medicine [address] [place] [address] Prepare RBC:G16, 1 Units (12/14/2022 5:02 AM FISHER MUSSEL)Only the most recent of19 resultswithin the time period is included. P athologist Signature PRBC Product 1 [facility] Comment: Red Blood Cells Available - Ord er Form 03 when ready for product issue. Unit Number [id number] [facility] Product Code [id number] [facility] Unit Expiration [id number] AR MD MARINO [facility] Unit Blood Type 6200 [facility] Product Code Text RBCIRLR CPD AS1 500mL [facility] Crossmatch Expiration Date [id number] [facility] Unit Irradiated IRRADIATED AR MD SHANTE Johnston [facility] Dispense Status ISSUED [facility] Unit Blood Type A Positive AR MD SHANTE Johnston [facility] Product Heating Element Builder Location .BPAM [facility] Comment: Specimen Anatomical Collection Method Collection Time Receive d Time (Source) Location / / Volume Laterality Blood 12/14/2022 5:02 AM 3 5:02 FISHER MUSSEL AM FISHER MUSSEL Fiona Islas MD BLOOD BANK PRODUCT ORDERABLE S Performing Organization Address City/State/ZIP Code Phon e Number [facility] Unless otherwise noted, [address] all lab tests performed by: Division of Pathology and Laboratory Medicine [address] [place] [address] General Laboratory Add-On Test (12/13/2022 9:46 AM FISHER MUSSEL)Only the most recent of5 resultswithin the time period is included. athologist Signature Ordered Test Added [facility] Test Needed ProBNP [facility] Specimen Anatomical Collection Method Collection Time Receive d Time (Source) Location / / Volume Laterality Existing 12/13/2022 9:46 AM 3 9:46 FISHER MUSSEL AM FISHER MUSSEL Rosa Maria Orantes APN LAB BLOOD ORDERABLES Performing Organization Address City/[facility]/ZIP Code Phon e Number [facility] Unless otherwise noted, [address] all lab tests performed by: Division of Pathology and Laboratory Medicine [address] [place] [address] Echocardiogram 2D Complete (12/13/2022 9:29 AM FISHER MUSSEL) athologist Signature BSA 2.06 m2 ISCV Specimen (Source) Anatomical Collection Method Collection Time Re ceived Time Location / / Volume Laterality 12/13/2022 8:39 AM FISHER MUSSEL Narrative ISCV - 12/13/2022 9:52 AM FISHER MUSSEL Echocardiographic Report Interpretation Summary A complete two-dimensional transthoracic echocardiogram was performed (2D, M- mode, Spectral and color Doppler). Compared to prior study, there is no significant change. Normal left ventricular size and systoli c function. LV ejection fraction calculated using e bi-plane method of disks is 57 %. The right ventricle is normal in size an d function. Right ventricular systolic pressure is n ormal. There is no pericardial effusion. Left Ventricle: Normal left ventricular size and systoli c function. LV ejection fraction calculated using the bi-plane method of disks is 57 %. I WMSI = 1.00 % Normal = 1 00 Segments Size X - Cannot 2 - 1-2 small Interpret 1 - Normal Hypokine tic 3 - Akinetic 4 - Dyskinetic3- 5 moderate 5 - Aneurysmal 6-14 large 15-16 diffuse 3D imaginD volumes were not performed in this st udy. Cardiac Mechanics/Speckle Tracking Imagi ng: Abnormal global longitudinal peak systol ic value. Strain Imaging was performed; GLPS avg = -16.9%. Diastology: Impaired LV relaxation pattern of diasto lic dysfunction, Doppler suggests normal LA pressures. Right Ventricle: The right ventricle is normal in size an d function. Normal RV systolic function using TAPSE criteria. Atria: Atria are normal in size. Mitral Valve: Mitral annular calcification is present. Tricuspid Valve: The tricuspid valve is not well visualiz ed, but is grossly normal. Right ventricular systolic pressure is normal. There is trace tricuspid regurgitation. Aortic Valve: The aortic valve is trileaflet. The aort ic valve opens well. No hemodynamically significant valvular aortic stenosis. Pulmonic Valve: The pulmonic valve is not well visualize d. Great Vessels: The aortic root is normal size. The infe rior vena cava demonstrates normal size and normal respiratory variation. Pericardium/Pleural: There is no pericardial effusion. MMode/2D Measurements IVSd: 1.3 cm LVIDd: 4.9 cm LVIDs: 2.9 cm LVPWd: 1.2 cm FS: 40.8 % LA dimension: 3.6 cm LVOT diam: 2.3 cm EDV(MOD-A4C): 143.4 ml LVOT area: 4.0 cm2 ESV(MOD-A4C): 57.0 ml EF(MOD-A4C): 60.3 % EDV(MOD-A2C): 124.6 ml ESV(MOD-A2C): 54.3 ml EDV(MOD-bp): 134.7 ml EF(MOD-A2C): 56.4 % ESV(MOD-bp): 57.6 ml EF(MOD-bp): 57.2 % LAV(MOD-A4C): 66.9 ml EDV (MOD-bp) Index: 67.0 ml/m2 RWT: 0.49 cm ESV (MOD-bp) Index: 28.7 ml/m2 TAPSE (>1.6): 2.6 cm Doppler Measurements MV E max santiago: 81.0 cm/sec MV V2 max: 104.4 cm/sec MV A max santiago: 96.3 cm/sec MV max P.4 mmHg MV E/A: 0.84 MV V2 mean: 57.6 cm/sec MV mean P.5 mmHg MV V2 VTI: 26.3 cm MVA(VTI): 4.0 cm2 Ao V2 max: 181.2 cm/sec LV V1 max P.9 mmHg Ao max P.1 mmHg LV V1 mean P.7 mmHg Ao V2 mean: 121.1 cm/sec LV V1 max: 110.8 cm/sec Ao mean P.5 mmHg LV V1 mean: 78.1 cm/sec Ao V2 VTI: 38.4 cm LV V1 VTI: 26.2 cm MAY(I,D): 2.7 cm2 MAY(V,D): 2.5 cm2 SV(LVOT): 105.1 ml PA V2 max: 115.5 cm/sec PA max P.3 mmHg PA V2 mean: 80.8 cm/sec PA mean P.8 mmHg PA V2 VTI: 25.4 cm TR max santiago: 235.9 cm/sec MAY Index (I,D): 1.4 TR max P.3 mmHg MAY Index (V,D): 1.2 Dimensionless Index: 0.61 57 Procedure Note Baldev Paz MD - 12/13/2022Format ting of this note might be different from the original. Echocardiographic Report Interpretation Summary A complete two-dimensional transthoracic echocardiogram was performed (2D, M- mode, Spectral and color Doppler). Compared to prior study, there is no significant change. Normal left ventricular size and systoli c function. LV ejection fraction calculated using th e bi-plane method of disks is 57 %. The right ventricle is normal in size an d function. Right ventricular systolic pressure is n ormal. There is no pericardial effusion. Left Ventricle: Normal left ventricular size and systoli c function. LV ejection fraction calculated using the bi-plane method of disks is 57 %. I WMSI = 1.00 % Normal = 100 Segments Size X - Cannot 2 - 1-2 small Interpret 1 - Normal Hypokinetic 3 - Bairon netic 4 - Dyskinetic3-5 moderate 5 - Aneurysmal 6-14 large 15-16 diffuse 3D imaginD volumes were not performed in this st udy. Cardiac Mechanics/Speckle Tracking Imagi ng: Abnormal global longitudinal peak systol ic value. Strain Imaging was performed; GLPS avg = -16.9%. Diastology: Impaired LV relaxation pattern of diasto lic dysfunction, Doppler suggests normal LA pressures. Right Ventricle: The right ventricle is normal in size an d function. Normal RV systolic function using TAPSE criteria. Atria: Atria are normal in size. Mitral Valve: Mitral annular calcification is present. Tricuspid Valve: The tricuspid valve is not well visualiz ed, but is grossly normal. Right ventricular systolic pressure is normal. There is trace tricuspid regurgitation. Aortic Valve: The aortic valve is trileaflet. The aort ic valve opens well. No hemodynamically significant valvular aortic stenosis. Pulmonic Valve: The pulmonic valve is not well visualize d. Great Vessels: The aortic root is normal size. The infe rior vena cava demonstrates normal size and normal respiratory variation. Pericardium/Pleural: There is no pericardial effusion. MMode/2D Measurements IVSd: 1.3 cm LVIDd: 4.9 cm LVIDs: 2.9 cm LVPWd: 1.2 cm FS: 40.8 % LA dimension: 3.6 cm LVOT diam: 2.3 cm EDV(MOD-A4C): 143. 4 ml LVOT area: 4.0 cm2 ESV(MOD-A4C): 57. 0 ml EF(MOD-A4C): 60.3 % EDV(MOD-A2C): 124.6 ml ESV(MOD-A2C): 54.3 ml EDV(MOD-bp): 134.7 ml EF(MOD-A2C): 56.4 % ESV(MOD-bp): 57. 6 ml EF(MOD-bp): 57.2 % LAV(MOD-A4C): 66.9 ml EDV (MOD-bp) I ndex: 67.0 ml/m2 RWT: 0.49 cm ESV (MOD-bp) Index: 28.7 ml/m2 TAPSE (>1.6): 2.6 cm Doppler Measurements MV E max santiago: 81.0 cm/sec MV V2 max: 104.4 cm/sec MV A max santiago: 96.3 cm/sec MV max P.4 mmHg MV E/A: 0.84 MV V2 mean: 57.6 cm/se c MV mean P.5 mmHg MV V2 VTI: 26.3 cm MVA(VTI): 4.0 cm2 Ao V2 max: 181.2 cm/sec LV V1 max P .9 mmHg Ao max P.1 mmHg LV V1 mean P.7 mmHg Ao V2 mean: 121.1 cm/sec LV V1 max: 110.8 cm/sec Ao mean P.5 mmHg LV V1 mean: 78. 1 cm/sec Ao V2 VTI: 38.4 cm LV V1 VTI: 26.2 cm MAY(I,D): 2.7 cm2 MAY(V,D): 2.5 cm2 SV(LVOT): 105.1 ml PA V2 max: 115.5 cm/sec PA max P.3 mmHg PA V2 mean: 80.8 cm/sec PA mean P.8 mmHg PA V2 VTI: 25.4 cm TR max santiago: 235.9 cm/sec MAY Index (I ,D): 1.4 TR max P.3 mmHg MAY Index (V,D): 1.2 Dimensionless In dex: 0.61 57 David Nguyen MD CV ECHO ORDERABLES Performing Organization Address City/State/ZIP Code Phon e Number ISCV Calcium Ionized, Venous (12/13/2022 3:42 AM FISHER MUSSEL)Only the most recent of3 results within the time period is included. [facility] Ion Ca 1.22 1.15 - 1.29 [facility] mmol/L [facility] Specimen Anatomical Collection Method Collection Time Receive d Time (Source) Location / / Volume Laterality Blood 12/13/2022 3:42 AM 3:54 FISHER MUSSEL AM FISHER MUSSEL Rhea Caldwell WATER REUSE PROGRAM MANAGER LAB BLOOD ORDERABLES Performing Organization Address City/State/ZIP Code Phon e Number [facility] Unless otherwise noted, [place] [address] [address] all lab tests performed by: Division of Pathology and Laboratory Medicine Darek Rivers (ABNORMAL) Troponin T (In-House) (12/13/2022 3:42 AM FISHER MUSSEL)Only the most recent of 3 resultswithin the time period is included. athologist [facility] Troponin T 30 (H) <=18 ng/L [facility] Comment: < 19 ng/L Suggest retest at 3 to 6 hours later to rule out myocardial infarction >= 19 to <=52 ng/L Pos sible myocardial injury. Suggest retest at 3 hours. - a change of < 20 ng/L, retest at 6 hours - a change of >= 20 ng/L, suggestive of myocardial infarction > 52 ng/L Suggestive of myocardial infarction Critical value will be reported when cTn T is > 52 ng/L and only reported for the first in a series. Hemolyzed specimens with Hemolysis Index >100 (100 mg/dl or moderate hemolysis) may cause interferences and falsely low results. Specimen Anatomical Collection Method Collection Time Receive d Time (Source) Location / / Volume Laterality Blood 12/13/2022 3:42 AM 3 4:10 FISHER MUSSEL AM FISHER MUSSEL Narrative [facility] - 3 4:23 AM FISHER MUSSEL Draw the second lab 6 hours after the AC CC level. David Nguyen MD LAB BLOOD ORDERABLES Performing Organization Address City/State/ZIP Code Phon e Number [facility] Unless otherwise noted, [place] [address] [place] all lab tests performed by: Division of Pathology and Laboratory Medicine [facility]5 [facility] CT Chest Pulmonary Embolism with Contrast (12/12/2022 9:24 PM FISHER MUSSEL) Anatomical Region Laterality Modality Chest Computed Tomography Specimen (Source) Anatomical Collection Method Collection Time Re ceived Time Location / / Volume Laterality 12/12/2022 9:29 PM FISHER MUSSEL Impressions 12/12/2022 9:36 PM FISHER MUSSEL * No acute pulmonary embolism. * Right upper lobe masslike consolidat ion and surrounding groundglass opacities remain unchanged. Right lower lobe consolidation and groundglass opacities have improved. The findings are again suspicious for infection. * Moderate right and small left pleura l effusions have increased. Narrative 12/12/2022 9:36 PM FISHER MUSSEL FULL RESULT: Examination: CT CHEST PULMONARY EMBOLISM W CONTRAST, 12/12/2022 9:24 PM Clinical History: Dyspnea. Acute myelobl astic leukemia. Indication: DVT or PE, prior, Dyspnea on exertion, COVID-19 Not Suspected Comparison: 12/03/2022. Technique: Spiral CT of the chest is per formed using intravenous contrast. Findings: Adequate opacification of the pulmonary arteries is obtained. No acute pulmonary embolism. Heart size is normal. No pericardial effusion. Multivessel coronary artery calcification. Thoracic aorta is normal in caliber. Small mediastinal lymph nodes are stable and likely reactive. Moderate right and small left pleural effusions have increased. No pneumothorax. Masslike consolidation in the right uppe r lobe with adjacent groundglass opacities remain unchanged. Masslike consolidation in the right lower lobe and adjacent groundglass opacities have improved. Mild left basilar atelectasis. No new consol idation or nodules. The central airways are patent. Right adrenal calcification, likely post infectious/postinflammatory. No acute abnormality in the visualized upper abdomen. No suspicious skeletal lesions. Degenera tive disease of the spine. Procedure Note Stephan Rand MD - 12/12/2022 FULL RESULT: Examination: CT CHEST PULMONARY EMBOLISM W CONTRAST, 12/12/2022 9:24 PM Clinical History: Dyspnea. Acute myelobl astic leukemia. Indication: DVT or PE, prior, Dyspnea on exertion, COVID-19 Not Suspected Comparison: 12/03/2022. Technique: Spiral CT of the chest is per formed using intravenous contrast. Findings: Adequate opacification of the pulmonary arteries is obtained. No acute pulmonary embolism. Heart size is normal. No pericardial effusion. Multivessel coronary artery calcification. Thoracic aorta is normal in caliber. Small mediastinal lymph nodes are stable and likely reactive. Moderate right and small left pleural effusions have increased. No pneumothorax. Masslike consolidation in the right uppe r lobe with adjacent groundglass opacities remain unchanged. Masslike consolidation in the right lower lobe and adjacent groundglass opacities have improved. Mild left basilar atelectasis. No new consolidation or nod ules. The central airways are patent. Right adrenal calcification, likely post infectious/postinflammatory. No acute abnormality in the visualized upper abdomen. No suspicious skeletal lesions. Degenera tive disease of the spine. IMPRESSION: * No acute pulmonary embolism. * Right upper lobe masslike consolidatio n and surrounding groundglass opacities remain unchanged. Right lower lobe consolidation and groundglass opacities have improved. The findings are again suspicious for infection. * Moderate right and small left pleural effusions have increased. David Nguyen MD IMG CT ORDERABLES X-ray Chest 1 View (12/12/2022 8:34 PM FISHER MUSSEL)Only the most recent of5 results within the time period is included. Anatomical Region Laterality Modality Chest Digital Radiography Specimen (Source) Anatomical Collection Method Collection Time Re ceived Time Location / / Volume Laterality 12/12/2022 8:39 PM FISHER MUSSEL Impressions 12/12/2022 8:41 PM FISHER MUSSEL Interval improvement in the right upper lobe. Narrative 12/12/2022 8:41 PM FISHER MUSSEL FULL RESULT: Examination: Portable Chest, 1 view, Nov 2022 at 8:30 PM Clinical History: Dyspnea Indication: Acute leukemia, Shortness of breath, COVID-19 not suspected Comparison: November 29, 2022 Technique: Single portable frontal radio graph of the chest Findings: Right upper lobe abnormal opacity has im proved but is still visible. Left lung remains clear. There is a mild right pleural effusion and a tiny left pleural effusion. The cardiac silhouette is within no rmal limits. Moderate hypertrophic buitrago e in the spine, and there is degenerative change at the left glenohumeral joint. Procedure Note Mariposa Anguiano MD - 12/12/2022Formatti ng of this note might be different from the original. FULL RESULT: Examination: Portable Chest, 1 view, [facility] 20[facility] at 8:30 PM Clinical History: Dyspnea Indication: Acute leukemia, Shortness of breath, COVID-19 not suspected Comparison: November 29, 2022 Technique: Single portable frontal radio graph of the chest Findings: Right upper lobe abnormal opacity has im proved but is still visible. Left lung remains clear. There is a mild right pleural effusion and a tiny left pleural effusion. The cardiac silhouette is within normal limits. Moderate hypertrophic change in the spine, and th ere is degenerative change at the left glenohumeral joint. IMPRESSION: Interval improvement in the right upper lobe. David Nguyen MD IMG DIAGNOSTIC IMAGING ORDER ANABELA COVID-19 (SARS-CoV-2)Asymptomatic-LT (12/12/2022 8:19 PM FISHER MUSSEL)Only the most recent of2 resultswithin the time period is included. [facility] Method Time Signature COVID19 Not Detected Not Detected MARILY COVARRUBIAS (S[facility]-2[facility] COVID19 SARS Inpatient [place] MD Indication Admission [facility] Covid 19 See Note AR MD Comment [facility] Comment: The hector SARS-CoV-2 nucleic acid test f or use on the hector Salena System is a real-time RT-PCR assay intended for the qualitative detection of SARS-CoV-2 (COVID-19) viral RNA in nasopharyngeal swabs from either individuals suspected of COVID-1 9 by their healthcare provider or from any individu al, including individuals without symptoms or other reasons to suspect COVID-19. A fact sheet for patients provided by the tank wagon driver ([employer]) can be reviewed at: https://www.Smappo.gov/media/799125/downloa d. A fact sheet for Health Care providers is provided by the tank wagon driver ([employer]) and can be reviewed at: https://www.Sma[employer].gov/media/820444/download Results must be interpreted within the c ontext of all relevant clinical and laboratory findings and should not form the sole basis for a diagnosis or treatment decision. Positive results do not rule out bacterial infection or co- infection with other viruses. Negative results do not preclud e SARS-CoV-2 infection and must be combined with clinical observations, patient history, and/or epidemiological information. This assay has been authorized by the A for use only under Emergency Use Authorization (EUA) in laboratories that have been CLIA-certified to perform moderate-complexity and high-complexity tests. The Microbiology Laboratory at [facility], CLIA Accreditation #[id number] a la CAP Accreditation #[id number], verified the performance characteristics of this assay. Internal controls are used to monitor all stages of the test process. Specimen (Source) Anatomical Collection Method Collection Time Re ceived Time Location / / Volume Laterality Nasopharyngeal Swab 12/12/2022 8:19 12/12 PM FISHER MUSSEL 8:50 PM FISHER MUSSEL David Nguyen MD MICROBIOLOGY - GENERAL ORDER ANABELA Performing Organization Address City/State/ZIP Code Phon e Number [facility] Unless otherwise noted, [place] [address] [place] all lab tests performed by: Division of Pathology and Laboratory Medicine [facility]5 [facility] Blood culture (12/12/2022 8:19 PM FISHER MUSSEL)Only the most recent of22 resultswithin the time period is included. Component Value Ref Test Analysis Performed At [facility] Range Method Time Signature Final Report No growth [facility] Path Review - Immunity and antibiotic use may render culture negative. Ongoing infection requires repeat culture. AR Bottle/Isolat The results have been review ed and electronically signed by Pathologist: SHARON or BRODY GRIFFIN MD #[id number] C [facility] Specimen Anatomical Collection Method Collection Time Receive d Time (Source) Location / / Volume Laterality Blood 12/12/2022 8:19 PM 3 8:27 (Venipuncture-Le FISHER MUSSEL PM FISHER MUSSEL ft) Comment: arm, lowbot Narrative [facility] - 3 7:33 PM FISHER MUSSEL One or both cultures bottles underfilled (< 5ml). This will result in decreased sensitivity in pathogen detection. David Nguyen MD MICROBIOLOGY - GENERAL ORDER ANABELA Performing Organization Address City/[facility] Phon e Number [facility] Unless otherwise noted, [address] all lab tests performed by: Division of Pathology and Laboratory Medicine [address] [place] [address] [place] CKMB (12/12/2022 7:55 PM FISHER MUSSEL) athologist Signature CK MB <2.0 <=10.4 [facility] ng/mL [facility] Specimen Anatomical Collection Method Collection Time Receive d Time (Source) Location / / Volume Laterality Blood 12/12/2022 7:55 PM 3 8:22 FISHER MUSSEL PM FISHER MUSSEL David Nguyen MD LAB BLOOD ORDERABLES Performing Organization Address City/[facility] Phon e Number [facility] Unless otherwise noted, [address] all lab tests performed by: Division of Pathology and Laboratory Medicine [address] [employer] (ABNORMAL) Creatine Kinase (12/12/2022 7:55 PM FISHER MUSSEL) athologist Signature CK 23 (L) 39 - 308 [facility] U/L [facility] Specimen Anatomical Collection Method Collection Time Receive d Time (Source) Location / / Volume Laterality Blood 12/12/2022 7:55 PM 3 8:22 FISHER MUSSEL PM FISHER MUSSEL David Nguyen MD LAB BLOOD ORDERABLES Performing Organization Address City/[facility] Phon e Number [facility] Unless otherwise noted, [place] [address] CENTER all lab tests performed by: Division of Pathology and Laboratory Medicine [address] DIAGNOSTIC BONE MARROW BIOPSIES & ASPIRATIONS (12/12/2022 9:20 AM FISHER MUSSEL) Specimen (Source) Anatomical Location Collection Method / Collectio n Time Received Time / Laterality Volume Bone Marrow Narrative [facility] - 9:20 AM FISHER MUSSEL MIGDALIA Hargrove 12/12/2022 10:00 AM Procedure: Bone marrow aspiration/biopsy Date/Time: 12/12/2022 9:20 AM Provider Information: Performed by: MIGDALIA Hargrove Authorized by: Nicol Cook NP Underground Electrician present: yes Underground Electrician: RT Lizzeth paraprofessional interpreter used?: spanish medical interpreter n ot needed Patient Diagnosis: Pre-procedure diagnosis: AML Post-procedure diagnosis: unchanged Indication: Indication: evaluation of disease status Anesthesia: Anesthesia: local infiltration Patient anesthetized by: advanced practi ce provider Local anesthetic: lidocaine 1% without e pinephrine Anesthetic total (ml): 20 Sedation: Patient sedated?: patient not sedated Aspirate Site(s): Laterality: left Site location: posterior iliac crest Instrument(s) used: [place] needle Instruments placed by: advanced practice provider Biopsy Site(s): Laterality: left Site location: posterior iliac crest Instrument(s) used: [place] needle Instruments placed by: advanced practice provider Dressing: Dressing: compression bandage Post-Procedure Patient Assessment: Patient tolerance: well Estimated blood loss: none Complications/Observations: no complicat ions Discharge/Disposition: Discharge instructions: verbal Patient discharged to: discharge to home Disposition mode: wheelchair Sample Disposition: Testing performed: flow cytometry, molec ular, cytogenetics and pathology Research samples(s): no Aspirate volume obtained (mL) - left: 15 Visual assessment for aspirate specimen adequacy - left: no particles Visual assessment for biopsy specimen ad equacy (cm) - left: 2 Biopsy specimen integrity - left: whole Comments: LABELS CHECKED BY KANDACE / DONNIE BRIEF FINDINGS: The patient was identifi ed by name, MRN, and both verbally and against the wrist band. H is platelet count was 146K and adequate for the procedure. 1% plain lid ocaine was used to anesthetize the left posterior iliac crest. Mr. Rothman was reminded about the possi ble side-effects/complications to bone marrow procedures including the fol lowing: Bleeding at the insertion site * Hematoma (bleeding outside a vein or a rtery) * Swelling * Discomfort at the site of injection * Tenderness or discomfort at the insert ion site * Pain in the buttocks, legs or muscles at the procedure site * Mild to severe bleeding into the butto ck or into the space lining the tristan of the abdominal cavity * Infection He verbalized understanding of these ris ks and signed the informed consent form. Overall, Mr. Rothman tolerated the proce dure well. He was instructed to keep the bandage on and dry for 48 hours following the procedure. Patient was discharged hemodynamically stable. Nicol Cook NP PROCEDURE/MINOR SURGICAL ORD ERABLES Performing Organization Address City/State/ZIP Code Phon e Number [facility] Unless otherwise noted, [address] all lab tests performed by: Division of Pathology and Laboratory Medicine [facility]5 [facility] Hematopathology Bone Marrow Interpretation (12/12/2022 9:19 AM FISHER MUSSEL)Only the most recent of3 resultswithin the time period is included. Component Value Ref Test Analysis Performed Pathologis t Range Method Time At Signature Diagnosis 12/13/2022 [facility] Electro nically Bone marrow, left posterior iliac crest, biopsy, clot section, aspirate smears and touch imprint: 10:36 AM signed by FISHER MUSSEL Shawn Cellular bone marrow (40%) w ith trilineage hematopoiesis, 4% blasts (see comment) MD Gretchen o n 12/13/2022 at 10:36 AM Comment The patient has a 12/13/2022 [facility] history of AML. 10:36 AM Correlation with FISHER MUSSEL ancillary studies is advised. These studies are in progress. The results will be reported separately. Microscopic 12/13/2022 [facility] Description BONE MARROW BIOPSY 10:36 AM FISHER MUSSEL Quality: Adequate Cellularity: 40% Megakaryocytes: Adequate Infiltrate: None BONE MARROW CLOT Quality: Suboptimal, few minute particles Cellularity: 40% Megakaryocytes: Present Infiltrate: None BONE MARROW SMEARS Quality / cellularity: Suboptimal, few particles Granulocytes: Maturing Erythrocytes: Maturing Megakaryocytes: Present Lymphocytes: Not increased, small with condensed chromatin Blasts: Not increased in number Gross A: 12/13/2022 [facility] Description Iliac crest, left posterior, clot 10:3 6 AM Dimensions: 0.3 x 3.0 x 2.5 cm FISHER MUSSEL Specimen is entirely submitted in 1. NB B: Iliac crest, left posterior, biopsy Length: 2.0 cm Submitted in a single cassette for decalcification. NB Disclaimer "Some tests 12/13/2022 [facility] reported here may 10:36 AM have been FISHER MUSSEL developed and performance characteristics determined by [facility] Pathology and Laboratory Medicine. These tests have not been specifically cleared or approved by the U.S. Food and Drug Administration. If applicable, controls were reviewed and showed appropriate reactivity." Peripheral CBC w/ Differential 12/12/2022 [facility] Blood 10:36 AM 0.6 !Low WBC FISHER MUSSEL 3.11 !Low RBC 8.8 !Low HEMOGLOBIN 26.1 !Low HEMATOCRIT 1.0 !High NRBC 0.36 !Low NEUTROPHIL ABS 0.22 !Low LYMPHOCYTE ABS 0.02 !Low MONOCYTE ABS 84 MEAN CELL VOLUME 28.3 MEAN CELL HEMOGLOBIN 33.7 MEAN CELL HEMOGLOBIN CONCENTRATION 41.0 RDW-SD 13.6 RDW-CV 146 PLATELET COUNT 9.4 MEAN PLATELET VOLUME 0.0 INRBC 60.0 NEUTROPHIL % 37.0 LYMPHOCYTE % 3.0 MONOCYTE % Present ANISOCYTOSIS Specimen Anatomical Collection Method Collection Time Receive d Time (Source) Location / / Volume Laterality Bone Marrow Collection / 12/12/2022 9:19 AM 3 (Iliac Crest, Unknown FISHER MUSSEL 10:15 AM FISHER MUSSEL Left Posterior, Clot) Bone Marrow Collection / 12/12/2022 9:19 AM 3 (Iliac Crest, Unknown FISHER MUSSEL 10:15 AM FISHER MUSSEL Left Posterior, Biopsy) Bone Marrow 12/12/2022 9:19 AM 3 (Iliac Crest, FISHER MUSSEL 11:04 AM FISHER MUSSEL Left Posterior, Aspirate) Lorne Youssef MD LAB PATHOLOGY ORDERABLES Performing Organization Address City/State/ZIP Code Phon e Number [facility] [place] [address] [address] (ABNORMAL) Hematopathology Bone Marrow Differential (12/12/2022 9:19 AM FISHER MUSSEL)Only the most recent of3 resultswithin the time period is included. Component Value Ref Test Analysis Performed At [facility] gist Range Method Time Signature Method Smear 12/13/2022 [facility] 10:35 AM FISHER MUSSEL Adequacy Suboptimal 12/13/2022 [facility] for 10:35 AM evaluation FISHER MUSSEL Total cells 500 12/13/2022 [facility] counted 10:35 AM FISHER MUSSEL BM Blast % 4 0 - 5 % 12/13/2022 [facility] 10:35 AM FISHER MUSSEL BM Progranulocyte 1 (L) 2 - 8 % 12/13/2022 [facility] % 10:35 AM FISHER MUSSEL BM Myelocyte % 2 (L) 5 - 20 % 12/13/2022 [facility] 10:35 AM FISHER MUSSEL BM Metamyelocyte % 8 (L) 13 - 32 12/13/2022 [facility] % 10:35 AM FISHER MUSSEL BM Granulocyte % 33 (H) 7 - 30 % 12/13/2022 [facility] 10:35 AM FISHER MUSSEL BM Eosinophil % 12/13/2022 [facility] 10:35 AM FISHER MUSSEL BM Lymphocyte % 25 (H) 3 - 17 % 12/13/2022 [facility] 10:35 AM FISHER MUSSEL BM Plasma Cell % 1 0 - 2 % 12/13/2022 [facility] 10:35 AM FISHER MUSSEL BM Monocyte % 3 0 - 5 % 12/13/2022 [facility] 10:35 AM FISHER MUSSEL BM Reticulum Cell 12/13/2022 [facility] % 10:35 AM FISHER MUSSEL BM Pronormoblast % 12/13/2022 [facility] 10:35 AM FISHER MUSSEL BM Normoblast % 23 7 - 32 % 12/13/2022 [facility] 10:35 AM FISHER MUSSEL BM M:E Ratio 2.2 (L) 3.0 - 12/13/2022 [facility] 4.0 10:35 AM FISHER MUSSEL Specimen Anatomical Collection Method Collection Time Receive d Time (Source) Location / / Volume Laterality Bone Marrow Collection / 12/12/2022 9:19 AM 3 (Iliac Crest, Unknown FISHER MUSSEL 11:04 AM FISHER MUSSEL Left Posterior, Aspirate) Lorne Youssef MD LAB PATHOLOGY ORDERABLES Performing Organization Address City/State/ZIP Code Phon e Number [facility] [place] [address] [address] MD TP53 Collection, Nonblood (12/12/2022 9:18 AM FISHER MUSSEL)Only the most recent of3 resultswithin the time period is included. athologist Signature Molecular Yes [facility] (Received) Specimen Anatomical Collection Method Collection Time Receive d Time (Source) Location / / Volume Laterality Bone Marrow 12/12/2022 9:18 AM 3 FISHER MUSSEL 10:46 AM FISHER MUSSEL Nicol Cook NP, MDA NONBLOOD COLLECTIO NS Performing Organization Address City/[facility]/ZIP Code Phon e Number [facility] Unless otherwise noted, [address] all lab tests performed by: Division of Pathology and Laboratory Medicine [address] [place] [address] [place] CG Chromosome Analysis Collection, Nonblood (12/12/2022 9:18 AM FISHER MUSSEL)Only the most recent of3 resultswithin the time period is included. P athologist Signature Cytogenetics Yes [facility] (Received) [facility] Specimen Anatomical Collection Method Collection Time Receive d Time (Source) Location / / Volume Laterality Bone Marrow 12/12/2022 9:18 AM 3 FISHER MUSSEL 10:46 AM FISHER MUSSEL Nicol Cook NP, MDA CG NONBLOOD COLLECTIO NS Performing Organization Address City/[facility]/ZIP Code Phon e Number [facility] Unless otherwise noted, [address] all lab tests performed by: Division of Pathology and Laboratory Medicine [address] [place] [address] [place] Cytogenetics Specimen Collection -Bone Marrow (12/12/2022 9:18 AM FISHER MUSSEL)Only the most recent of2 resultswithin the time period is included. Patholo gist Method Time Signature Beaker Ap Link [id number] Cytogenetics Yes [facility] (Received) [facility] Specimen Anatomical Collection Method Collection Time Receive d Time (Source) Location / / Volume Laterality Bone Marrow 12/12/2022 9:18 AM 3 FISHER MUSSEL 10:46 AM FISHER MUSSEL Nicol Cook NP, MDA CG NONBLOOD COLLECTIO NS Performing Organization Address City/[facility]/ZIP Code Phon e Number [facility] Unless otherwise noted, [address] all lab tests performed by: Division of Pathology and Laboratory Medicine [address] [place] [address] [place] FC MRD AML Interpretation and Report (12/12/2022 9:18 AM FISHER MUSSEL)Only the most recent of2 resultswithin the time period is included. Specimen Anatomical Collection Method Collection Time Receive d Time (Source) Location / / Volume Laterality 12/12/2022 9:18 AM 3 FISHER MUSSEL 10:44 AM FISHER MUSSEL Narrative This result has an attachment that is no t available. Nicol Cook NP, MDA HP FLOW CYTOMETRY (HP FC ) Molecular Diagnostics Specimen Collection -Bone Marrow (12/12/2022 9:18 AM FISHER MUSSEL) Only the most recent of3 resultswithin the time period is included. Patholo gist Method Time Signature Molecular Yes [facility] (Received) CANCER CENTER precious Ap Link [id number] [facility] Specimen Anatomical Collection Method Collection Time Receive d Time (Source) Location / / Volume Laterality Bone Marrow 12/12/2022 9:18 AM 3 FISHER MUSSEL 10:46 AM FISHER MUSSEL Nicol Cook NP, MDA HP MD NONBLOOD COLLECTIO NS Performing Organization Address City/State/ZIP Code Phon e Number [facility] Unless otherwise noted, [address] all lab tests performed by: Division of Pathology and Laboratory Medicine [facility]5 [employer] Flow Cytometry Specimen Collection -Bone Marrow (12/12/2022 9:18 AM FISHER MUSSEL)Only the most recent of4 resultswithin the time period is included. P athologist Signature Flow Cytometry Yes [facility] (Received) CANCER CENTER Comment: Test performed by: [facility] Flow Cytometry Laboratory [address] [place] [address] Maria Elena Ap Link [id number] [facility] Specimen Anatomical Collection Method Collection Time Receive d Time (Source) Location / / Volume Laterality Bone Marrow 12/12/2022 9:18 AM 3 FISHER MUSSEL 10:44 AM FISHER MUSSEL Nicol Cook NP, MDA HP FC NONBLOOD COLLECTIO NS Performing Organization Address City/State/ZIP Code Phon e Number [facility] Unless otherwise noted, [address] all lab tests performed by: Division of Pathology and Laboratory Medicine [facility]5 [employer] TMP Interpretation Crossmatch (12/12/2022 8:03 AM FISHER MUSSEL)Only the most recent of13 resultswithin the time period is included. [facility] gist Method Time Signature TMP XM Interp RBC units AR crossmatched for [facility] CANCER [facility] CENTER acceptable. Comment: CONSTANTINO MCDERMOTT, Dictated by: CONSTANTINO MCDERMOTT, Dictated Date/Time: 12.14.2022 8:[address] Transcribed Date/Time: 12.14.2022 8:42 AM FISHER MUSSEL Electronically Signed By: CONSTANTINO MCDERMOTT, on 12.14.2022 8:42 AM C Specimen Anatomical Collection Method Collection Time Receive d Time (Source) Location / / Volume Laterality Blood 12/12/2022 8:03 AM 3 9:10 FISHER MUSSEL AM FISHER MUSSEL Nicol Cook NP BLOOD BANK TEST ORDERABLES Performing Organization Address City/State/ZIP Code Phon e Number [facility] Unless otherwise noted, [place] [address] [place] all lab tests performed by: Division of Pathology and Laboratory Medicine [facility]5 [place] Peripheral Smear for Bone Marrow (12/12/2022 8:03 AM FISHER MUSSEL)Only the most recent of 3 resultswithin the time period is included. athologist [facility] Peripheral PSMEAR [facility] Smear DIAGNOSTIC CENTER Specimen Anatomical Collection Method Collection Time Receive d Time (Source) Location / / Volume Laterality Blood 12/12/2022 8:03 AM 3 8:09 FISHER MUSSEL AM FISHER MUSSEL Nicol Cook NP LAB BLOOD ORDERABLES Performing Organization Address City/State/ZIP Code Phon e Number [facility] DIAGNOSTIC Unless otherwise noted, [place], [place] [phone] [place] all lab tests performed by: Division of Pathology and Laboratory Medicine [facility]5 [place] Differential Cancel (12/08/2022 12:50 AM FISHER MUSSEL)Only the most recent of18 results within the time period is included. athologist [facility] Diff Cancelled See Note [facility] CENTER Comment: Due to low WBC, the differentia l will not be performed and it is not possible to calculate ANC. Specimen Anatomical Collection Method Collection Time Receive d Time (Source) Location / / Volume Laterality Blood 12/08/2022 12:50 12/08/2022 AM FISHER MUSSEL 12:55 AM FISHER MUSSEL Zamzam NEGRON LAB BLOOD ORDERABLES Performing Organization Address City/State/ZIP Code Phon e Number [facility] Unless otherwise noted, [place] [id number] CENTER all lab tests performed by: Division of Pathology and Laboratory Medicine [address] [place] [address] POC Critical (12/07/2022 2:19 AM FISHER MUSSEL)Only the most recent of3 resultswithin the time period is included. P athologist Signature POC Critical See Note POC [facility] Comment Comment: Test performer notified Orderin g Licensed Provider and /or designee of POC Glucose Screen critical Results.. Specimen Anatomical Collection Method Collection Time Receive d Time (Source) Location / / Volume Laterality Blood 12/07/2022 2:19 AM 3 2:19 FISHER MUSSEL AM FISHER MUSSEL Omar Villanueva MD POINT OF CARE TEST ORDERABLE S Performing Organization Address City/[facility] Phon e Number POC [facility] Unless otherwise noted, [place] [address] lab tests performed by: Division of Pathology and Laboratory Medicine [address] [place] [address] US Liver (12/05/2022 4:13 PM FISHER MUSSEL) Anatomical Region Laterality Modality Abdomen Ultrasound Specimen (Source) Anatomical Collection Method Collection Time Re ceived Time Location / / Volume Laterality 12/05/2022 4:27 PM FISHER MUSSEL Impressions 12/05/2022 4:31 PM FISHER MUSSEL 1. Morphologically normal-appearing live r with no focal masses. No biliary dilatation. Narrative 12/05/2022 4:31 PM FISHER MUSSEL FULL RESULT: Examination: US LIVER 12/05/2022 4:13 PM. 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 Indication: Increase liver function test s/obstruction Comparison: CT scan of the chest dated J an2022 and PET scan dated November 06, 2022 Technique: Grayscale evaluation of the r ight upper quadrant was performed. Findings: The liver is homogeneous in echotexture and measures 15.7 cm. There is no evidence of intra or extra hepatic biliary dilatation with the CBD measuring 0.2 cm in length. The portal vein is patent measuri ng 0.8 cm in size. The gallbladder is co ntracted with no cholelithiasis, pericholecystic fluid or sonographic [place] sign. The pancreas is not well seen. No ascite s is seen. The right kidney measures 12.5 cm and is within normal limits with no evidence of hydronephrosis, nephrolithiasis or suspicious mass. The proximal aorta and IVC are unremarka ble. The remaining portions of the abdomen we re not assessed. Procedure Note Roderick Wetzel MD - 12/05/2022Formatti ng of this note might be different from the original. FULL RESULT: Examination: US LIVER 12/05/2022 4:13 PM. 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 Indication: Increase liver function test s/obstruction Comparison: CT scan of the chest dated J an2022 and PET scan dated November 06, 2022 Technique: Grayscale evaluation of the r ight upper quadrant was performed. Findings: The liver is homogeneous in echotexture and measures 15.7 cm. There is no evidence of intra or extra hepatic biliary dilatation with the CBD measuring 0.2 cm in length. The portal vein is patent measuring 0.8 cm in size. The gallbladder is contracted with no cholelithiasis, pericholecystic fluid or sonographic [place] sign. The pancreas is not well seen. No ascite s is seen. The right kidney measures 12.5 cm and is within normal limits with no evidence of hydronephrosis, nephrolithiasis or suspicious mass. The proximal aorta and IVC are unremarka ble. The remaining portions of the abdomen we re not assessed. IMPRESSION: 1. Morphologically normal-appearing live r with no focal masses. No biliary dilatation. Omar Villanueva MD [facility] US ORDERABLES Gastrointestinal Multiplex Panel (12/04/2022 9:55 PM FISHER MUSSEL) Component Value Ref Range Test Analysis Performed Pathologis t Method Time At Signature Campylobacter Not Detected Not MARILY COVARRUBIAS Detected [facility] C difficile DNA (GI Refer to MARILY COVARRUBIAS Multi Panel) separate Jessenia. SHARON difficile DNA CANCER Assay for CENTER results Plesiomonas Not Detected Not MARILY COVARRUBIAS shigelloides Detected [facility] Salmonella Not Detected Not MARILY COVARRUBIAS Detected [facility] Vibrio Not Detected Not [facility] MD Detected [facility] Vibrio cholerae Not Detected Not [facility] MD Detected [facility] Yersinia Not Detected Not [facility] MD enterocolitica Detected [facility] Enteroaggregative E. Not Detected Not [facility] MD coli (EAEC) Detected [facility] Enteropathogenic E. Not Detected Not [facility] MD coli (EPEC) Detected [facility] Enterotoxigenic E. Not Detected Not [facility] MD coli (ETEC) Detected [facility] Shiga-like Not Detected Not [facility] MD toxin-producing E. Detected [place] col (STEC) [facility] E. coli O157 Not Not [facility] MD Applicable Detected [facility] Shigella/Enteroinvas Not Detected Not [facility] MD sandra E. coli (EIEC) Detected [facility] Cryptosporidium Not Detected Not [facility] MD Detected [facility] Cyclospora Not Detected Not [place] MD cayetanensis Detected [facility] Entamoeba Not Detected Not [place] MD histolytica Detected [facility] Giardia lamblia Not Detected Not [facility] MD Detected [facility] Adenovirus F 40/41 Not Detected Not [facility] MD Detected [facility] Astrovirus Not Detected Not [facility] MD Detected [facility] Norovirus GI/GII Not Detected Not [facility] MD Detected [facility] Rotavirus A Not Detected Not [facility] MD Detected [facility] Sapovirus (I, II, IV Not Detected Not [facility] MD and V) Detected [facility] Specimen Anatomical Collection Method Collection Time Receive d Time (Source) Location / / Volume Laterality Stool 12/04/2022 9:55 PM 3 FISHER MUSSEL 12:22 AM FISHER MUSSEL Omar Villanueva MD MICROBIOLOGY - GENERAL ORDER ANABELA Performing Organization Address City/State/ZIP Code Phon e Number [facility] Unless otherwise noted, [address] all lab tests performed by: Division of Pathology and Laboratory Medicine [address] [place] [address] Gastrointestinal Multiplex Panel Path Review (12/04/2022 9:55 PM FISHER MUSSEL) [facility] gist Method Time Signature GIMP CT Reviewed and Electronically signed by Pathologist: MARILY Orr MD, PhD #[id number] [facility] Comment: Performed by real-time PCR methodology. This assay detects the presence of nucleic acid (DNA or RNA) for the pathogens reported. A result of "Not Detected" does not exclude the possibility of the presen ce of one or more of the pathogens at ss than the detection limits of this assay. The results of the GI Panel should be co nsidered presumptive. Clinical correlation is recommended. EDENILSON ORR MD, PhD - [id number] Dictated by: EDENILSON ORR MD, PhD - [phone] Dictated Date/Time: 12.05.2022 10:37 AM FISHER MUSSEL Transcribed Date/Time: 12.05.2022 10:37 AM FISHER MUSSEL Electronically Signed By: EDENILSON ORR MD, PhD - [id number] on 12.05.2022 10:37 AM Specimen Anatomical Collection Method Collection Time Receive d Time (Source) Location / / Volume Laterality Stool 12/04/2022 9:55 PM 3 FISHER MUSSEL 12:22 AM FISHER MUSSEL Omar Villanueva MD LAB BLOOD ORDERABLES Performing Organization Address City/State/ZIP Code Phon e Number [facility] Unless otherwise noted, [address] all lab tests performed by: Division of Pathology and Laboratory Medicine [address] [facility] CT Chest without Contrast (12/03/2022 10:29 PM FISHER MUSSEL)Only the most recent of5 resultswithin the time period is included. Anatomical Region Laterality Modality Chest Computed Tomography Specimen (Source) Anatomical Collection Method Collection Time Re ceived Time Location / / Volume Laterality 12/04/2022 12:57 AM FISHER MUSSEL Impressions 12/04/2022 9:29 AM FISHER MUSSEL Stable masslike opacities of the right lung with adjacent groundglass opacities which may represent infection with surrounding hemorrhage. Fungal infection such as mucormycosis is in the differential consideration . I personally reviewed these image(s) chilo ayala with the resident's/fellow's interpretations, certify that if a procedure was performed I was physically present, and agree with the final report. 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 Findings: Lines and tubes: A right PICC is noted w ith tip terminating at the cavoatrial junction. Lungs and airways: Masslike consolidatio n of the right lower lobe is similar compared to the prior study measuring approximately 6 cm. Ground glass opacities around this consolidation is similar compare d to the prior study. The masslike conso lidation of the right upper lobe with adjacent groundglass opacities are also similar compared to the prior study. Groundglass opacities of the right middle lobe are also unchanged. Pleural spaces: There is a new small rig ht pleural effusion. No left pleural effusion. No pneumothorax. Lymph nodes: No supraclavicular, axillar y, or mediastinal lymphadenopathy. There is limited evaluation of the hilar lymph nodes due to lack of intravenous contrast. Cardiovascular: The heart is stable in s ize. Moderate atherosclerotic calcification of coronary arteries is noted. Atherosclerotic calcification of aorta is noted. Bones and soft tissues: Degenerative tala nges of the spine are noted with osteophyte formation and degenerative disc disease. Upper abdomen: Calcifications in the rig ht adrenal gland is again noted. The spleen is not enlarged. 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 Findings: Lines and tubes: A right PICC is noted w ith tip terminating at the cavoatrial junction. Lungs and airways: Masslike consolidatio n of the right lower lobe is similar compared to the prior study measuring approximately 6 cm. Ground glass opacities around this consolidation is similar compared to the prior study. The masslike consolidation of the right upper lobe with adjacent groundglass opacities are also similar compared to the prior study. Groundglass opacities of the right middle lobe are also unchanged. Pleural spaces: There is a new small rig ht pleural effusion. No left pleural effusion. No pneumothorax. Lymph nodes: No supraclavicular, axillar y, or mediastinal lymphadenopathy. There is limited evaluation of the hilar lymph nodes due to lack of intravenous contrast. Cardiovascular: The heart is stable in s ize. Moderate atherosclerotic calcification of coronary arteries is noted. Atherosclerotic calcification of aorta is noted. Bones and soft tissues: Degenerative tala nges of the spine are noted with osteophyte formation and degenerative disc disease. Upper abdomen: Calcifications in the rig ht adrenal gland is again noted. The spleen is not enlarged. No evidence of hydronephrosis in the visualized kidneys IMPRESSION: Stable masslike opacities of the right l vaishali with adjacent groundglass opacities which may represent infection with surrounding hemorrhage. Fungal infection such as mucormycosis is in the differential consideration . I personally reviewed these image(s) chilo ng with the resident's/fellow's interpretations, certify that if a procedure was performed I was physically present, and agree with the final report. Omar Villanueva MD IMG CT ORDERABLES US RENAL (12/03/2022 8:50 AM FISHER MUSSEL) Anatomical Region Laterality Modality Abdomen Ultrasound Specimen (Source) Anatomical Collection Method Collection Time Re ceived Time Location / / Volume Laterality 12/03/2022 8:57 AM FISHER MUSSEL Impressions 12/03/2022 9:01 AM FISHER MUSSEL No hydronephrosis. I personally reviewed these image(s) chilo ng with the resident's/fellow's interpretations, certify that if a procedure was performed I was physically present, and agree with the final report. 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 Technique: Grayscale and color Doppler u ltrasound of the kidneys and urinary bladder. Findings: Left kidney: Normal echotexture and co ntour, measuring 12.5 cm. No hydronephrosis. Right kidney: Normal echotexture and c ontour, measuring 11.3 cm. No hydronephrosis. Urinary bladder: The urinary bladder i s decompressed by Wesley catheter. 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 Technique: Grayscale and color Doppler u ltrasound of the kidneys and urinary bladder. Findings: Left kidney: Normal echotexture and cont our, measuring 12.5 cm. No hydronephrosis. Right kidney: Normal echotexture and con tour, measuring 11.3 cm. No hydronephrosis. Urinary bladder: The urinary bladder is decompressed by Wesley catheter. IMPRESSION: No hydronephrosis. I personally reviewed these image(s) chilo ng with the resident's/fellow's interpretations, certify that if a procedure was performed I was physically present, and agree with the final report. Omar Villanueva MD IM US ORDERABLES Clostridium Difficile DNA Path Review (12/02/2022 4:14 PM FISHER MUSSEL)Only the most recent of3 resultswithin the time period is included. Component Value Ref Test Analysis Performed At [facility] gist Range Method Time Signature C diff DNA CT Reviewed and Electronically signed by Pathologist: MARILY GRIFFIN MD #[id number] [facility] Comment: C. difficile Toxin DNA (Primary Method) is a nucleic acid amplification test (NAAT) intended for the qualitative detection of bacterial DNA from toxigenic strains of Clostridium difficile. Reference Range: DNA Negative Clostridium Difficile Toxin Assay (Refle x Method) performed by rapid immunoassay for the detection of Clostridium difficile toxins A and B in stool specimens. Reference Range: Negative When invalid results are obtained by eit her the primary or reflex method, a new specimen should be collected for repeat testing. BRODY GRIFFIN MD - [id number] Dictated by: MD Keren RASHEED [id number] Dictated Date/Time: 12.03.2022 12:14 PM FISHER MUSSEL Transcribed Date/Time: 12.03.2022 12:14 PM FISHER MUSSEL Electronically Signed By: MD Keren CALLE [id number] on 12.03.2022 12:14 PM Specimen Anatomical Collection Method Collection Time Receive d Time (Source) Location / / Volume Laterality Stool 12/02/2022 4:14 PM 3 FISHER MUSSEL 10:14 AM FISHER MUSSEL Kimmie Murry APN MICROBIOLOGY - GENERAL ORDER ANABELA Performing Organization Address City/State/ZIP Code Phon e Number [facility] Unless otherwise noted, [address] all lab tests performed by: Division of Pathology and Laboratory Medicine [address] [place] [address] Clostridium Difficile DNA Assay (12/02/2022 4:14 PM FISHER MUSSEL)Only the most recent of3 resultswithin the time period is included. [facility] gist Method Time Signature C difficile DNA Negative Negative [facility] C difficle Toxin Test Not Negative [place] EIA Performed [facility] C difficile C. difficile [facility] Interpretation DNA SHARON detection CANCER was negative CENTER making C. difficile infection highly unlikely in this patient. EIA not performed. Specimen Anatomical Collection Method Collection Time Receive d Time (Source) Location / / Volume Laterality Stool 12/02/2022 4:14 PM 3 5:30 FISHER MUSSEL PM FISHER MUSSEL Kimmie Murry APN MICROBIOLOGY - GENERAL ORDER ANABELA Performing Organization Address City/[facility]/ZIP Code Phon e Number [facility] Unless otherwise noted, [address] all lab tests performed by: Division of Pathology and Laboratory Medicine [address] [place] [address] US Leg Venous Doppler Bilateral (12/02/2022 11:24 AM FISHER MUSSEL) Anatomical Region Laterality Modality Leg, Extremity Ultrasound Specimen (Source) Anatomical Collection Method Collection Time Re ceived Time Location / / Volume Laterality 12/02/2022 11:31 AM FISHER MUSSEL Impressions 12/02/2022 3:00 PM FISHER MUSSEL 1. Deep venous thrombosis of the left peroneal and right soleal veins. 2. Left Pizarro's cyst. Pertinent findings were communicated wit h and acknowledged by Dr. Jaimie Hicks at 11:57 AM hours on 12/02/2022. I personally reviewed these image(s) chilo ayala with the resident's/fellow's interpretations, certify that if a procedure was performed I was physically present, and agree with the final report. 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 Technique: Grayscale and color/spectral Doppler ultrasound of the bilateral lower extremity veins was performed. Findings: There is noncompressible echogenic filli ng defect in the left peroneal vein. There is an additional noncompressible e chogenic filling defect in a right soleal vein. The bilateral common femoral, femoral, a nd popliteal veins demonstrate color flow, compressibility, and response to augmentation. The visualized bilateral posterior tibial, right peroneal, and bilateral anterior tibial veins are patent and co mpressible. There is a irregular fluid collection in the left popliteal fossa measuring 1.5 x 2.0 x 0.5 cm and soft tissue component measuring 2.0 x 1.5 x 4.6 cm, likely partially undistended Pizarro's cyst. There is no suspicious internal Doppler flow. 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 Technique: Grayscale and color/spectral Doppler ultrasound of the bilateral lower extremity veins was performed. Findings: There is noncompressible echogenic filli ng defect in the left peroneal vein. There is an additional noncompressible e chogenic filling defect in a right soleal vein. The bilateral common femoral, femoral, a nd popliteal veins demonstrate color flow, compressibility, and response to augmentation. The visualized bilateral posterior tibial, right peroneal, and bilateral anterior tibial veins are patent and compressible. There is a irregular fluid collection in the left popliteal fossa measuring 1.5 x 2.0 x 0.5 cm and soft tissue component measuring 2.0 x 1.5 x 4.6 cm, likely partially undistended Pizarro's cyst. There is no suspicious internal Doppler flow. IMPRESSION: 1. Deep venous thrombosis of the left pe roneal and right soleal veins. 2. Left Pizarro's cyst. Pertinent findings were communicated wit h and acknowledged by Dr. Jaimie Hicks at 11:57 AM hours on 12/02/2022. I personally reviewed these image(s) chilo lucy with the resident's/fellow's interpretations, certify that if a procedure was performed I was physically present, and agree with the final report. Omar Villanueva MD IM US ORDERABLES Respiratory Multiplex PCR Panel, Nasopharyngeal Swab (12/01/2022 5:42 PM FISHER MUSSEL) Only the most recent of2 resultswithin the time period is included. [facility] Method Time Signature Adenovirus Not Not [place] MD Detected Detected [facility] Coronavirus 229E Not Not [place] MD Detected Detected [facility] Coronavirus HKU1 Not Not [place] MD Detected Detected [facility] Coronavirus NL63 Not Not [place] MD Detected Detected [facility] Coronavirus OC43 Not Not [place] MD Detected Detected [facility] COVID19 Not Not [place] MD (SARS-CoV-2) Detected Detected [facility] Human Not Not [place] MD Metapneumovirus Detected Detected [facility] Human Not Not [place] MD Rhinovirus/Enterov Detected Detected [facility] Influenza A Not Not [place] MD Detected Detected [facility] Influenza A H1 Not Not [place] MD Detected Detected [facility] Influenza A H1 Not Not [place] MD 2009 Detected Detected [facility] Influenza A H3 Not Not [place] MD Detected Detected [facility] Influenza B Not Not [place] MD Detected Detected [facility] Parainfluenza 1 Not Not [place] MD Detected Detected [facility] Parainfluenza 2 Not Not [place] MD Detected Detected [facility] Parainfluenza 3 Not Not [place] MD Detected Detected [facility] Parainfluenza 4 Not Not [place] MD Detected Detected [facility] Respiratory Not Not [place] MD Syncytial Virus Detected Detected [facility] Bordetella Not Not [place] MD Parapertussis Detected Detected [facility] Bordetella Not Not [place] MD pertussis Detected Detected [facility] Chlamydiophila Not Not [place] MD pneumoniae Detected Detected [facility] Mycoplasma Not Not [place] MD pneumoniae Detected Detected [facility] Specimen (Source) Anatomical Collection Method Collection Time Re ceived Time Location / / Volume Laterality Nasopharyngeal Swab 12/01/2022 5:42 12/01 PM FISHER MUSSEL 5:51 PM FISHER MUSSEL Narrative [place] MD [facility] - 3 7:21 PM FISHER MUSSEL Has patient had a positive for COVID-19 result in the last 3 months?->No The BioFire RP2.1 is a real-time, nested multiplexed polymerase chain reaction test designed to simultaneously identify nucleic acids from 22 different viruses and bacteria associated with respiratory tract infect ion, including SARS-CoV-2, from a single nasopharyngeal swab (FRONT DESK RECEPTIONIST) specimen obtained from individuals suspected of respiratory tract infections, including COVID-19. Results must be interpreted within the c ontext of all relevant clinical and laboratory findings and should not form the sole basis for a diagnosis or treatment decision. Positive results do not rule out coninfection with other organisms. Nega tive results in the setting of a respiratory illness may be due to infection with pathogens that are not detected by this panel, or a lower respiratory tract infection that may not be detected by an FRONT DESK RECEPTIONIST specimen. Internal controls are used to monitor al l stages of the test process and assess for possible amplification inhibitors. If inhibition is detected, testing is repeated and if inhibition is confirmed the s pecimen is resulted as "Invalid". When a n "Invalid" result occurs, it is recommended to wait 3 days before submitting a new specimen for testing if clinically indicated. This assay has been approved by the FDA for use in laboratories that have been CLIA-certified to perform moderate-complexity and high-complexity tests. The Microbiology Laboratory at [facility], CLIA Accreditation #[id number] and CAP Accreditation #[id number], verified the per formance characteristics of this assay. Microbiology Laboratory at [facility] performs the assay using the [employer] System. Kimmie Murry APN MICROBIOLOGY - GENERAL ORDER ANABELA Performing Organization Address City/State/ZIP Code [facility] e Number [facility] Unless otherwise noted, [address] all lab tests performed by: Division of Pathology and Laboratory Medicine [address] [place] [address] Chromosome Analysis Interpretation and Report (12/01/2022 12:43 PM FISHER MUSSEL)Only the most recent of2 resultswithin the time period is included. Specimen (Source) Anatomical Collection Method Collection Time Re ceived Time Location / / Volume Laterality 12/01/2022 12:43 PM FISHER MUSSEL Narrative This result has an attachment that is no t available. Zamzam NEGRON MDA HP CYTOGENETICS (HP CG) CT DIAGNOSTIC BONE MARROW ASPIRATIONS (12/01/2022 12:33 PM FISHER MUSSEL) Specimen (Source) Anatomical Location Collection Method / Collectio n Time Received Time / Laterality Volume Bone Marrow Narrative [facility] - 3 12:33 PM FISHER MUSSEL Maame Castañeda NP 12/01/2022 12:51 PM Procedure: Bone marrow aspiration Date/Time: 12/01/2022 12:33 PM Provider Information: Performed by: Maame Castañeda NP Authorized by: MIGDALIA Ann Underground Electrician present: yes Underground Electrician: Jey Garcia RT paraprofessional interpreter used?: spanish medical interpreter n ot needed Patient Diagnosis: Pre-procedure diagnosis: AML Post-procedure diagnosis: unchanged Indication: Indication: evaluation of disease status Anesthesia: Anesthesia: local infiltration Patient anesthetized by: advanced practi ce provider Local anesthetic: lidocaine 1% without e pinephrine Anesthetic total (ml): 20 Sedation: Patient sedated?: patient not sedated Aspirate Site(s): Laterality: right Site location: posterior iliac crest Instrument(s) used: [place] needle Instruments placed by: advanced practice provider Dressing: Dressing: compression bandage Post-Procedure Patient Assessment: Patient tolerance: well Estimated blood loss: minimal Complications/Observations: no complicat ions Pre-procedure pain scale: 0/10 Greater than 20ccs of Lidocaine given?: No Post-procedure pain scale: 0/10 Discharge/Disposition: Discharge instructions: verbal and patie nt verbalized understanding Patient discharged to: return to [facility] bed Disposition mode: stretcher Sample Disposition: Testing performed: flow cytometry, molec ular, cytogenetics and pathology Research samples(s): yes Protocol #: [id number] Aspirate volume obtained (mL) - right: 2 5 Visual assessment for aspirate specimen adequacy - right: particles Comments: The patient was positively identified by Name, MRN, and . Laboratory values were reviewed and platelet count 40K and adequate for the procedure. The patient tolerated the pro cedure well. Following the procedure pressure was applied to site u ntil homeostasis achieved. Patient was instructed to keep the bandage on an d dry for 24 hours after the procedure and they stated a clear unders tanding. No complications were observed immediately after the procedure . Pertinent lab data: Lab Results Component Value Date WBC 0.3 (L) 12/01/2022 HGB 7.3 (L) 12/01/2022 HCT 22.2 (L) 12/01/2022 MCV 88 12/01/2022 PLT 40 (L) 12/01/2022 PT 18.7 (H) 12/01/2022 PTT 30.8 12/01/2022 INR 1.65 (H) 12/01/2022 Zamzam NEGRON PROCEDURE/MINOR SURGICAL ORD ERABLES Performing Organization Address City/[facility]/ZIP [facility] Phon e Number [facility] Unless otherwise noted, [address] all lab tests performed by: Division of Pathology and Laboratory Medicine [facility]5 [address] TMP Interpretation Manual Antibody Screen Negative (12/01/2022 12:13 PM FISHER MUSSEL)Only the most recent of3 resultswithin the time period is included. [facility] TMP Neg ABSC At the [facility] patient plasma shows no evidence of RBC alloantibodi es. Comment: OPAL TEJEDA MD - [id number] Dictated by: OPAL TEJEDA MD - 1200 6 Dictated Date/Time: 12.01.2022 15:06 PM FISHER MUSSEL Transcribed Date/Time: 12.01.2022 15:06 PM FISHER MUSSEL Electronically Signed By: OPAL PETER MD - [id number] on 12.01.2022 15:06 PM Specimen Anatomical Collection Method Collection Time Receive d Time (Source) Location / / Volume Laterality Blood 12/01/2022 12:13 12/01/2022 PM FISHER MUSSEL 12:13 PM FISHER MUSSEL Omar Villanueva MD BLOOD BANK TEST ORDERABLES Performing Organization Address City/[facility] Phon e Number [facility] Unless otherwise noted, [address] all lab tests performed by: Division of Pathology and Laboratory Medicine [address] Antibody Screen Manual (12/01/2022 12:13 PM FISHER MUSSEL)Only the most recent of3 results within the time period is included. [facility] ABSC Interp Negative ABSC [facility] Specimen Anatomical Collection Method Collection Time Receive d Time (Source) Location / / Volume Laterality Blood 12/01/2022 12:13 12/01/2022 PM FISHER MUSSEL 12:13 PM FISHER MUSSEL Omar Villanueva MD BLOOD BANK TEST ORDERABLES Performing Organization Address City/[facility]/ZIP Code Phon e Number [facility] Unless otherwise noted, [address] all lab tests performed by: Division of Pathology and Laboratory Medicine [address] ABORh Manual (12/01/2022 12:13 PM FISHER MUSSEL)Only the most recent of3 resultswithin the time period is included. P athologist Signature ABORh Manual A POS [facility] Specimen Anatomical Collection Method Collection Time Receive d Time (Source) Location / / Volume Laterality Blood 12/01/2022 12:13 12/01/2022 PM FISHER MUSSEL 12:13 PM FISHER MUSSEL Omar Villanueva MD BLOOD BANK TEST ORDERABLES Performing Organization Address [facility]/ZIP Code Phon e Number [facility] Unless otherwise noted, [address] all lab tests performed by: Division of Pathology and Laboratory Medicine [facility]5 [employer]vard Transfusion Rxn Culture w/ Gram Stain (12/01/2022 11:46 AM FISHER MUSSEL)Only the most recent of4 resultswithin the time period is included. [facility] Method Time [facility] Final Report No growth [facility] Gram Stain No organisms [facility] Report [facility] Specimen Anatomical Collection Method Collection Time Receive d Time (Source) Location / / Volume Laterality BBT-Pigtail 12/01/2022 11:46 12/01/2022 AM FISHER MUSSEL 12:32 PM FISHER MUSSEL Cynthia Devine [employer] MICROBIOLOGY - GENERAL ORDER ANABELA Performing Organization Address City/[facility]/ZIP Code Phon e Number [facility] Unless otherwise noted, [address] all lab tests performed by: Division of Pathology and Laboratory Medicine [address] [employer] (ABNORMAL) Urinalysis w/Microscopic if Indicated (12/01/2022 11:41 AM FISHER MUSSEL)Only the most recent of6 resultswithin the time period is included. [facility] gist Method Time Signature UA Color Straw Straw-Yel [facility] UA Appear Clear Clear [facility] UA Glucose 50 (A) NEG mg/dL [facility] UA Bili NEG NEG [facility] UA Ketones NEG NEG mg/dL [facility] UA Spec Grav 1.012 1.003 - [place] 1.035 [facility] UA Blood NEG NEG [facility] UA pH 7.0 5.0 - 9.0 [facility] UA Protein NEG NEG mg/dL [facility] UA Urobilinogen NEG NEG [facility] UA Nitrite NEG NEG [facility] UA Leuk Est NEG NEG [facility] UA Comment See Comment [facility] Comment: No microscopic exam performed, physiochemical findings are negative Specimen Anatomical Collection Method Collection Time Receive d Time (Source) Location / / Volume Laterality Urine 12/01/2022 11:41 12/01/2022 AM FISHER MUSSEL 11:46 AM FISHER MUSSEL Cynthia Devine [employer] URINE ORDERABLES Performing Organization Address City/State/ZIP Code Phon e Number [facility] Unless otherwise noted, [address] all lab tests performed by: Division of Pathology and Laboratory Medicine [address] [place] [address] TMP Interpretation Transfusion Reaction (12/01/2022 11:01 AM FISHER MUSSEL)Only the most recent of4 resultswithin the time period is included. [facility] gist Method Time Signature TMP TXN RXN FEBRILE [facility] NON-HEMOLYTIC [facility]). Please see consult note in [employer]. Comment: MD Keren PAVON [id number] Dictated by: MD Keren PAVON 1200 6 Dictated Date/Time: 12.02.2022 14:26 PM FISHER MUSSEL Transcribed Date/Time: 12.02.2022 14:26 PM FISHER MUSSEL Electronically Signed By: MD Keren [place] [id number] on 12.02.2022 14:26 PM Specimen Anatomical Collection Method Collection Time Receive d Time (Source) Location / / Volume Laterality Blood 12/01/2022 11:01 12/01/2022 AM FISHER MUSSEL 11:29 AM FISHER MUSSEL Cynthia Devine CARI BLOOD BANK TEST ORDERABLES Performing Organization Address City/State/ZIP Code Phon e Number [facility] Unless otherwise noted, [address] all lab tests performed by: Division of Pathology and Laboratory Medicine [address] [facility] [facility] Transfusion Reaction (12/01/2022 11:01 AM FISHER MUSSEL)Only the most recent of4 results within the time period is included. Specimen Anatomical Collection Method Collection Time Receive d Time (Source) Location / / Volume Laterality Blood 12/01/2022 11:01 12/01/2022 AM FISHER MUSSEL 11:29 AM FISHER MUSSEL Narrative [facility] - 12:00 PM FISHER MUSSEL Obtain 7 mL blood sample, in pink top va cutainer, and label specimen TRANSFUSION REACTION. Cynthia Devine CARI BLOOD BANK TEST ORDERABLES Performing Organization Address City/[facility]/ZIP Code Phon e Number [facility] Unless otherwise noted, [address] all lab tests performed by: Division of Pathology and Laboratory Medicine [address] [place] US Testicular Doppler (11/30/2022 7:33 PM FISHER MUSSEL) Anatomical Region Laterality Modality Testes Ultrasound Specimen (Source) Anatomical Collection Method Collection Time Re ceived Time Location / / Volume Laterality 11/30/2022 7:42 PM FISHER MUSSEL Impressions 11/30/2022 10:45 PM FISHER MUSSEL 1. No evidence of testicular torsion. No suspicious testicular lesion. 2. Mild left varicocele.. 3. Slightly increased vascularity is s een in both testicles, nonspecific finding but recommend clinical correlation to exclude mild orchitis. This is a preliminary resident report an d has not been reviewed by an attending radiologist. I personally reviewed these image(s) chilo ayala with the resident's/fellow's interpretations, certify that if a procedure was performed I was physically present, and agree with the final report. 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 Technique: Grayscale and color Doppler ultrasound of the scrotum. Findings: Left testicle: The left testicle measure s 4.1 x 1.7 x 2.2 cm. No suspicious intratesticular lesion. The epididymis is unremarkable. Mild varicocele. No hydrocele. Right testicle: The right testicle measu res 4.6 x 1.8 x 2.5 cm. No suspicious intratesticular lesion. There is a hypoechoic cyst in the epididymal head measuring 0.3 x 0.5 x 0.3 cm, representing epididymal cyst or spermatocele. No hydrocele. Testicular parenchyma relatively homogen ous both the testicles. However, there is suggestion of slightly increased vascularity in both the testicles. Recommend clinical correlation to exclude possible mild orchitis. 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 Technique: Grayscale and color Doppler u ltrasound of the scrotum. Findings: Left testicle: The left testicle measure s 4.1 x 1.7 x 2.2 cm. No suspicious intratesticular lesion. The epididymis is unremarkable. Mild varicocele. No hydrocele. Right testicle: The right testicle measu res 4.6 x 1.8 x 2.5 cm. No suspicious intratesticular lesion. There is a hypoechoic cyst in the epididymal head measuring 0.3 x 0.5 x 0.3 cm, representing epididymal cyst or spermatocele. No hydrocele. Testicular parenchyma relatively homogen ous both the testicles. However, there is suggestion of slightly increased vascularity in both the testicles. Recommend clinical correlation to exclude possible mild orchitis. IMPRESSION: 1. No evidence of testicular torsion. No suspicious testicular lesion. 2. Mild left varicocele.. 3. Slightly increased vascularity is see n in both testicles, nonspecific finding but recommend clinical correlation to exclude mild orchitis. This is a preliminary resident report an d has not been reviewed by an attending radiologist. I personally reviewed these image(s) chilo ng with the resident's/fellow's interpretations, certify that if a procedure was performed I was physically present, and agree with the final report. Nicol Cook NP IMG US ORDERABLES US SCROTUM/TESTICULAR (11/30/2022 7:33 PM FISHER MUSSEL) Anatomical Region Laterality Modality Testes Ultrasound Specimen (Source) Anatomical Collection Method Collection Time Re ceived Time Location / / Volume Laterality 11/30/2022 7:42 PM FISHER MUSSEL Impressions 11/30/2022 10:45 PM FISHER MUSSEL 1. No evidence of testicular torsion. No suspicious testicular lesion. 2. Mild left varicocele.. 3. Slightly increased vascularity is s een in both testicles, nonspecific finding but recommend clinical correlation to exclude mild orchitis. This is a preliminary resident report an d has not been reviewed by an attending radiologist. I personally reviewed these image(s) chilo ng with the resident's/fellow's interpretations, certify that if a procedure was performed I was physically present, and agree with the final report. 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 Technique: Grayscale and color Doppler ultrasound of the scrotum. Findings: Left testicle: The left testicle measure s 4.1 x 1.7 x 2.2 cm. No suspicious intratesticular lesion. The epididymis is unremarkable. Mild varicocele. No hydrocele. Right testicle: The right testicle measu res 4.6 x 1.8 x 2.5 cm. No suspicious intratesticular lesion. There is a hypoechoic cyst in the epididymal head measuring 0.3 x 0.5 x 0.3 cm, representing epididymal cyst or spermatocele. No hydrocele. Testicular parenchyma relatively homogen ous both the testicles. However, there is suggestion of slightly increased vascularity in both the testicles. Recommend clinical correlation to exclude possible mild orchitis. 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 Technique: Grayscale and color Doppler u ltrasound of the scrotum. Findings: Left testicle: The left testicle measure s 4.1 x 1.7 x 2.2 cm. No suspicious intratesticular lesion. The epididymis is unremarkable. Mild varicocele. No hydrocele. Right testicle: The right testicle measu res 4.6 x 1.8 x 2.5 cm. No suspicious intratesticular lesion. There is a hypoechoic cyst in the epididymal head measuring 0.3 x 0.5 x 0.3 cm, representing epididymal cyst or spermatocele. No hydrocele. Testicular parenchyma relatively homogen ous both the testicles. However, there is suggestion of slightly increased vascularity in both the testicles. Recommend clinical correlation to exclude possible mild orchitis. IMPRESSION: 1. No evidence of testicular torsion. No suspicious testicular lesion. 2. Mild left varicocele.. 3. Slightly increased vascularity is see n in both testicles, nonspecific finding but recommend clinical correlation to exclude mild orchitis. This is a preliminary resident report an d has not been reviewed by an attending radiologist. I personally reviewed these image(s) chilo ayala with the resident's/fellow's interpretations, certify that if a procedure was performed I was physically present, and agree with the final report. Nicol Cook NP IMG US ORDERABLES VZV Quant, Plasma (11/30/2022 5:45 PM FISHER MUSSEL) [facility] Method Time Signature VZV Not Detected Not Detected MARILY COVARRUBIAS Plasma-Viraco copies/mL [facility] Comment: Assay Range: 278 copies/mL to 1.00E+08 c opies/mL The limit of quantitation (LOQ) is 278 c opies/mL. VZV DNA detected below the LOQ will be reported as Detect ed:<278 copies/mL. This test was developed and its performa nce characteristics determined by [employer]. It has n ot been cleared or approved by the U.S. Food and Drug Administration . Results should be used in conjunction with clinical findings, and should not form the sole basis for a diagnosis or treatment decis ion. Performed At: [facility] [address] [place] [address] Regional Commercial Sales Manager: Adam Freitas Ph.D., B CLD (ABB) [place]#: [id number] Phone: Specimen Anatomical Collection Method Collection Time Receive d Time (Source) Location / / Volume Laterality Blood 11/30/2022 5:45 PM 3 FISHER MUSSEL 11:43 AM FISHER MUSSEL Boris Grimes MD MICROBIOLOGY - GENERAL ORDERABLES Performing Organization Address City/State/ZIP Code Phon e Number [facility] Unless otherwise noted, [place] [address] [place] all lab tests performed by: Division of Pathology and Laboratory Medicine [facility]5 [facility] HSV 1+2 Quant, Plasma (11/30/2022 5:45 PM FISHER MUSSEL) [facility] Method Time Signature HSV1 Not Detected Not Detected [place] Plasma-Viraco copies/mL [facility] HSV2 Not Detected Not Detected [facility] Plasma-Viraco copies/mL [facility] Comment: Assay Range for HSV 1 is 37 copies/mL to 1.00E+08 copies/mL Assay Range for HSV 2 is 73 copies/mL to 1.00E+08 copies/mL The limit of quantitation (LOQ) is 37 (H SV 1) and 73 (HSV 2) copies/mL. HSV DNA detected below the LO Q will be reported as Detected:<37 copies/mL (HSV 1) or Detect ed:<73 copies/mL (HSV 2). This test was developed and its performa nce characteristics determined by [employer]. It has n ot been cleared or approved by the U.S. Food and Drug Administration . Results should be used in conjunction with clinical findings, and should not form the sole basis for a diagnosis or treatment decis ion. Performed At: [facility] [address] [address] Regional Commercial Sales Manager: Adam Freitas Ph.D., B CLD (ABB) [facility]#: [id number] Phone: Specimen Anatomical Collection Method Collection Time Receive d Time (Source) Location / / Volume Laterality Blood 11/30/2022 5:45 PM 3 FISHER MUSSEL 11:43 AM FISHER MUSSEL Boris Grimes MD MICROBIOLOGY - GENERAL ORDERABLES Performing Organization Address City/State/ZIP Code Phon e Number [facility] Unless otherwise noted, [address] all lab tests performed by: Division of Pathology and Laboratory Medicine [address] [place] [address] HSV/VZV DNA Detection (11/30/2022 3:29 PM FISHER MUSSEL)Only the most recent of2 results within the time period is included. athologist Signature HSV/VZV Penis [facility] HSV-1 DNA Negative Negative [facility] HSV-2 DNA Negative Negative [facility] VZV DNA Negative Negative [facility] Comment: HSV 1+2/VZV DNA is a nucleic acid amplif ication test (NAAT) intended for the qualitative detection and differentiation of herpes simplex virus type 1, herpes simplex virus type 2, and varicella-zoster v irus DNA isolated and purified from cuta neous or mucocutaneous lesions [facility] Reference Range: DNA Negative When invalid results are obtained, a new specimen should be collected for repeat testing if clinically indicated. Specimen Anatomical Collection Method Collection Time Receive d Time (Source) Location / / Volume Laterality Lesion 11/30/2022 3:29 PM 3 4:39 FISHER MUSSEL PM FISHER MUSSEL Narrative [facility] - 3 12:40 PM FISHER MUSSEL Penile lesions on glans Boris Grimes MD MICROBIOLOGY - GENERAL ORDERABLES Performing Organization Address City/State/ZIP Code Phon e Number [facility] Unless otherwise noted, [address] all lab tests performed by: Division of Pathology and Laboratory Medicine [address] [place] [address] Transfuse platelets:Transfusion Date: 11/29/2022 (11/29/2022 7:35 PM FISHER MUSSEL)Only the most recent of11 resultswithin the time period is included. Omar Villanueva MD BLOOD TRANSFUSION ORDERABLES COVID-19 (SARS-CoV-2) PCR-Asymptomatic (11/29/2022 5:15 PM FISHER MUSSEL)Only the most recent of4 resultswithin the time period is included. [facility] Method Time Signature COVID19 (SARS Not Detected Not Detected [place] CoV-2) [facility] Comment: This test is a qualitative reverse-trans criptase polymerase chain reaction (RT- PCR) developed for the [employer] system and intended for qualitative detection of SARS CoV-2 RNA in nasopharyngeal a nd oropharyngeal swab specimens collecte d from any individuals, including those suspected o f COVID-19 by their healthcare provider, and those without symptoms or other reasons to suspect COVID-19. A fact sheet for patients provided by the tank wagon driver ( [employer]) can be rev iewed at: https://www.fda.gov/media/011197/downloa d. A fact sheet for Health Care providers is provided by the tank wagon driver ([employer]) and can be reviewed at: https://www.fda.gov/media/578412/download Results must be interpreted within the c ontext of all relevant clinical and laboratory findings and should not form the sole basis for a diagnosis or treatment decision. Positive results do not rule out bacterial infection or co- infection with other viruses. Negative results do not rule ou t SARS-CoV-2 and must be combined with clinical observations, patient history, and/or epidemiological information. "Presumptive Positive" results are due t o partial amplification of SARS-CoV-2 targets and indicates low amounts of virus present in the specimen at or near the limit of detection. Regardless, individuals with "Presumptive Positive" results should be managed per institutional guidelines as individuals positive for SARS-CoV-2 virus, including use of appropriate infection control protocols. Internal controls are included to assess for possible amplification inhibitors. If inhibition is detected, testing is repeated and if inhibition is confirmed the specimen is resulted as "Invalid". When an "Invalid" result occurs, it is recomm ended to wait 3 days before submitting a new spec imen for testing if clinically indicated. This assay has been approved by the FDA for use only under Emergency Use Authorization (EUA) in laboratories that have been CLIA-certified to perform moderate-complexity and high-complexity tests. The performance characteristics of this assay were verified by the Microbiology Laboratory at [facility], CLIA Accreditation #: [id number] and CAP Accreditation #: [id number]. COVID19 SARS Source WATER REUSE PROGRAM MANAGER Swab AR [facility] COVID19 SARS Indication Inpatient Admission [facility] Specimen (Source) Anatomical Collection Method Collection Time Re ceived Time Location / / Volume Laterality Nasopharyngeal Swab 11/29/2022 5:15 11/29 PM FISHER MUSSEL 5:40 PM FISHER MUSSEL Narrative [facility] - 12:52 AM FISHER MUSSEL Weekly swab Omar Villanueva MD MICROBIOLOGY - GENERAL ORDER ANABELA Performing Organization Address City/[facility]/ZIP [facility] Phon e Number [facility] Unless otherwise noted, [address] all lab tests performed by: Division of Pathology and Laboratory Medicine Darek Rivers PLT Product Ready for Heating Element Builder (11/29/2022 12:19 PM FISHER MUSSEL)Only the most recent of11 resultswithin the time period is included. Analysis Performed At Path logist Time Signature PLT Product B2 Blood MARILY COVARRUBIAS Ready for Pick Bank [facility] Comment: Product is ready for pickle solution maker on November 29, 2022 15:55:28 FISHER MUSSEL. Specimen Anatomical Collection Method Collection Time Receive d Time (Source) Location / / Volume Laterality Blood 11/29/2022 12:19 11/29/2022 PM FISHER MUSSEL 12:20 PM FISHER MUSSEL Omar Villanueva MD BLOOD BANK PRODUCT ORDERABLE S Performing Organization Address City/State/ZIP [facility] Phon e Number [facility] Unless otherwise noted, [address] all lab tests performed by: Division of Pathology and Laboratory Medicine [facility] [place] Rivers Prepare platelets:Transfusion Date: 11/29/2022; Transfusion Indications: Actively Bleeding; [id number], 1 Units (11/29/2022 12:19 PM FISHER MUSSEL)Only the most recent of13 resultswithin the time period is included. P athologist Signature PLT Product Approved [facility] Comment: Platelet order has been approve d. Order Form 3 when ready for product issue. Expect 2 hours for platelet concentratio n. Unit Number [id number] [facility] Product Code [id number] AR MD [facility] Unit Expiration [id number] AR MD MARINO SON [facility] Unit Blood Type A000 [facility] Product Code Text PLATELETS Pooled IR [facility] Number of Units in Pool 6 [facility] Unit Irradiated IRRADIATED AR FLORINALia N [facility] Dispense Status ISSUED [facility] Unit Blood Type A Pooled Rh [place] [facility] Product Heating Element Builder Location .BPAM [facility] Comment: Specimen Anatomical Collection Method Collection Time Receive d Time (Source) Location / / Volume Laterality Blood 11/29/2022 12:19 11/29/2022 PM FISHER MUSSEL 12:20 PM FISHER MUSSEL Omar Villanueva MD BLOOD BANK PRODUCT ORDERABLE S Performing Organization Address City/State/ZIP Code Phon e Number [facility] Unless otherwise noted, [address] all lab tests performed by: Division of Pathology and Laboratory Medicine [facility]5 [facility] Urine Culture (11/28/2022 9:59 AM FISHER MUSSEL)Only the most recent of7 resultswithin the time period is included. Component Value Ref Test Analysis Performed At Patholo gist Range Method Time Signature Final Report No growth [facility] Path Review - The results have been review ed and electronically signed by Pathologist: [facility] Urine BRODY GRIFFIN MD #[id number] A [facility] Specimen Anatomical Collection Method Collection Time Receive d Time (Source) Location / / Volume Laterality Urine 11/28/2022 9:59 AM 3 FISHER MUSSEL 12:10 PM FISHER MUSSEL Nicol Cook NP MICROBIOLOGY - GENERAL ORDER ANABELA Performing Organization Address City/State/ZIP Code Phon e Number [facility] Unless otherwise noted, [address] all lab tests performed by: Division of Pathology and Laboratory Medicine [address] [facility] Cytology Non-Pipe Line Gauger Interpretation (11/27/2022 2:30 PM FISHER MUSSEL)Only the most recent of2 resultswithin the time period is included. Component Value Ref Test Analysis Performed Pathologis t Range Method Time At Signature Gross 1 Diff Quik; 1 Pap Stain Slides 11/28/19 2 MDA AP Description 2 ml. clear colorless fluid 3 5:17 PM LABS Specimen concentrated by cytocentrifugation technique FISHER MUSSEL Major [facility]/benign [facility] Electron ically Classification 3 5:17 PM LABS james d by FISHER MUSSEL Jessenia Rey MD on 11/28/19 at 5:17 PM Diagnosis Cerebrospinal fluid, lumbar puncture: [facility] AP Electronically 3 5:17 PM LABS signed by No malignant cells identified FISHER MUSSEL Jessenia Rey MD on 11/28/19 at 5:17 PM Retained/Biomark SR: 2 S [facility] er Testing 3 5:17 PM LABS FISHER MUSSEL Informational Some tests reported [facility] Points here may have been 3 5:17 PM LABS developed and FISHER MUSSEL performance characteristics determined by [facility] Pathology and Laboratory Medicine. These tests have not been specifically cleared or approved by the U.S. Food and Drug Administration. Specimen Anatomical Collection Method Collection Time Receive d Time (Source) Location / / Volume Laterality Fluid (CSF, 11/27/2022 2:30 PM 3 3:25 Lumbar Puncture) FISHER MUSSEL PM FISHER MUSSEL Lorne Youssef MD LAB CYTOLOGY ORDERABLES Performing Organization Address City/State/ZIP Code Phon e Number [facility] AP LABS [facility] [place] [address] [address] [place] CSF Diff Path Review (11/27/2022 2:25 PM FISHER MUSSEL) Component Value Ref Test Analysis Performed At [facility] gist Range Method Time [facility] CSF Diff Path NO MALIGNANT [facility] Interpretation [facility] Comment: JAZLYN SHABAZZ MD - [id number] Dictated by: JAZLYN SHABAZZ MD - [id number] Dictated Date/Time: 11.28.2022 17:12 PM FISHER MUSSEL Transcribed Date/Time: 11.28.2022 17:12 PM FISHER MUSSEL Electronically Signed By: JAZLYN SHABAZZ MD - [id number] on 11.28.2022 17:12 PM Specimen Anatomical Collection Method Collection Time Receive d Time (Source) Location / / Volume Laterality CSF 11/27/2022 2:25 PM 3 3:57 FISHER MUSSEL PM FISHER MUSSEL Lorne Youssef MD BODY FLUIDS AND STOOLS ORDER ANABELA Performing Organization Address City/State/ZIP Code Phon e Number [facility] Unless otherwise noted, [address] all lab tests performed by: Division of Pathology and Laboratory Medicine [address] [place] (ABNORMAL) Cell Count w/ Diff CSF (11/27/2022 2:25 PM FISHER MUSSEL) athologist Signature Type CSF Tap [facility] Comment: When reviewing the cell count a nd differential results, clinicians should consider the length of time between spin al fluid collection and testing and the clinical condition of the patient. Appear CSF CLEAR CLEAR [facility] Comment: When reviewing the cell count a nd differential results, clinicians should consider the length of time between spin al fluid collection and testing and the clinical condition of the patient. Color CSF Colorless Colorless [facility] Comment: When reviewing the cell count a nd differential results, clinicians should consider the length of time between spin al fluid collection and testing and the clinical condition of the patient. WBC CSF 1 0 - 5 /mcL [facility] Comment: When reviewing the cell count a nd differential results, clinicians should consider the length of time between spin al fluid collection and testing and the clinical condition of the patient. RBC CSF 33 (H) 0 - 0 /mcL [facility] Comment: When reviewing the cell count a nd differential results, clinicians should consider the length of time between spin al fluid collection and testing and the clinical condition of the patient. Tot Cells CSF 17 [facility] Comment: When reviewing the cell count a nd differential results, clinicians should consider the length of time between spin al fluid collection and testing and the clinical condition of the patient. Neut CSF 0 0 - 5 % [facility] Comment: When reviewing the cell count a nd differential results, clinicians should consider the length of time between spin al fluid collection and testing and the clinical condition of the patient. Lymph CSF 82 28 - 96 % [facility] Comment: When reviewing the cell count a nd differential results, clinicians should consider the length of time between spin al fluid collection and testing and the clinical condition of the patient. Histiocyte CSF 6 (L) 16 - 56 % [facility] Comment: When reviewing the cell count a nd differential results, clinicians should consider the length of time between spin al fluid collection and testing and the clinical condition of the patient. Other CSF 12 % [facility] Comment: Differential is referred to Pathologist for review. The other cells may be further character ized and enumerated in the Pathologist's interpretation. When reviewing the cell count and differ ential results, clinicians should consider the length of time between spinal fluid collection and testing and the clinical condition of the patient. Microorganisms CSF None Seen None Seen AR MD MARINO [facility] Comment: When reviewing the cell count a nd differential results, clinicians should consider the length of time between spin al fluid collection and testing and the clinical condition of the patient. Specimen Anatomical Collection Method Collection Time Receive d Time (Source) Location / / Volume Laterality CSF 11/27/2022 2:25 PM 3 3:57 FISHER MUSSEL PM FISHER MUSSEL Lorne Youssef MD BODY FLUIDS AND STOOLS ORDER ANABELA Performing Organization Address City/State/ZIP Code Phon e Number [facility] Unless otherwise noted, [place] [address] [place] all lab tests performed by: Division of Pathology and Laboratory Medicine [address] [place] [address] CT CHEMOTX ADMN AUCTIONEER ART REQ SPINAL PUNCTURE (11/27/2022 2:00 PM FISHER MUSSEL) Nicol Sanabria NP - 11/27/2022 2:00 P M FISHER MUSSEL Nicol Cook NP 11/27/2022 3:22 PM Lumbar puncture with chemo injection Date/Time: 11/27/2022 2:00 PM Provider Information: Authorized by: Lorne Youssef MD Performed by: Nicol Cook NP Underground Electrician present: no paraprofessional interpreter used: spanish medical interpreter no t needed Pre-Procedure Note: Consent obtained: yes [place] protocol (time-out) performed: yes Patient Diagnosis: Pre-procedure diagnosis: AML Post-procedure diagnosis: unchanged Indications: Indication: prophylaxis Anesthesia: Anesthesia: local infiltration Local anesthetic: lidocaine 1% without e pinephrine and EMLA cream Anesthetic total (ml): 5 Pre-medications: Pre-medications used?: yes IV Fluids: IV fluids administered: no Sedation: Patient sedated?: no Procedure Details: Preparation: patient was prepped and michelle ped in usual sterile fashion Lumbar space: L4-L5 interspace Patient's position: sitting Needle gauge: 22 Needle type: Quincke needle Needle length (in): 3.5 Number of attempts: 1 Fluid appearance: clear Tubes of fluid: 1 Estimated blood loss: minimal Post-procedure: site cleaned and adhesiv e bandage applied Patient instructed to lie flat for (hour s): 1 hour Chemo/Biotherapy: Chemo/biotherapy: cytarabine Volume of fluid instilled (ml): 5 Sample Disposition: Sample disposition: cytology and inorganic chemist ry Patient Disposition: Disposition: remain in inpatient bed Comments: Pt prepped for the procedure (see above) . Spinal needle inserted in the L4-L5 space, fluids noted and collected. Chemo administered. Pt tolerated procedure well. Most Recent International Normalization Ratio: 1.22 (H) 11/27/22 01:00 Prothrombin Time: 15.3 (H) 11/27/22 01:00 aPTT: 26.9 11/27/22 01:00 Fibrinogen: 239 11/27/22 01:00 Plts: 30K (H): Data is abnormally high Lorne Youssef MD PROCEDURE/MINOR SURGICAL ORD ERABLES (ABNORMAL) Urinalysis with Microscopic (11/24/2022 3:31 PM FISHER MUSSEL)Only the most recent of3 resultswithin the time period is included. Analysis Performed At Patho logist Time Signature UA Color Straw [place] [facility] UA Appear Clear Clear [facility] UA Glucose 500 (A) NEG mg/dL [facility] UA Bili NEG NEG [facility] UA Ketones NEG NEG mg/dL [facility] UA Spec Grav 1.011 1.003 - [facility] 1.035 [facility] UA Blood NEG NEG [facility] UA pH 6.5 5.0 - 9.0 [facility] UA Protein NEG NEG mg/dL [facility] UA Urobilinogen NEG NEG [facility] UA Nitrite NEG NEG [facility] UA Leuk Est NEG NEG [facility] UA WBC 1 0 - 2 /HPF [facility] Comment: Some reporting parameters within the Uri nalysis test have changed due to the implementation of new instrumentation in the [facility], allowing greater sensitivity of measurement. Urinalysis results rep orted by the [facility] using existing instrumentation, as well as Urinalysis t esting performed manually or by backup methodology at the [facility] [place] will remain relatively unchanged. New reporting parameters and units will not be reported for all campuses. UA RBC NOT SEEN 0 - 2 /HPF [facility] UA Mucous NOT SEEN Not Seen-Trace /HPF AR MD PENA [facility] UA Bacteria NOT SEEN NOT SEEN /HPF [facility] UA Squam Epi NOT SEEN None-Occasional /HPF [facility] UA Trans Epi OCC (A) NOT SEEN /HPF AR MD SHANTE Johnston [facility] Specimen Anatomical Collection Method Collection Time Receive d Time (Source) Location / / Volume Laterality Urine 11/24/2022 3:31 PM 3 3:50 FISHER MUSSEL PM FISHER MUSSEL Lorne Youssef MD URINE ORDERABLES Performing Organization Address City/State/ZIP Code Phon e Number [facility] Unless otherwise noted, [place] [address] [place] all lab tests performed by: Division of Pathology and Laboratory Medicine [address] [place] [address] CT Sinus without Contrast (11/22/2022 3:07 PM FISHER MUSSEL) Anatomical Region Laterality Modality Head Computed Tomography Specimen (Source) Anatomical Collection Method Collection Time Re ceived Time Location / / Volume Laterality 11/22/2022 3:10 PM FISHER MUSSEL Impressions 11/22/2022 3:33 PM FISHER MUSSEL 1. The paranasal sinuses are clear. 2. Polypoid soft tissue within the left nasal passages new when compared to exam dated 10/31/2022 but unchanged from recent CT had. Recommend direct visualization for further assessment. 3. Nonspecific trace debris within the i nferior anterior right nasal passage. Narrative 11/22/2022 3:33 PM FISHER MUSSEL FULL RESULT: Examination: CT SINUS WO CONTRAST on 11/22 3:07 PM Clinical History: Acute myeloblastic raphael kemia Indication: neutropenic pt with severe c ongestion, nasal drainage, fevers Comparison: CT head dated 11/19/2022 and C T head dated 10/31/2022 Technique: Sinus CT without intravenous contrast was performed. Findings: The frontal sinuses are clear. The ethmo id sinuses are clear. The sphenoid sinuses are clear. The sphenoethmoidal recesses are unremarkable. The maxillary sinuses are clear. No aggressive osseous destru ction. No fat stranding involving the pr emaxillary fat pads. The ostiomeatal units are patent. A lobulated soft tissue density is ident ified anterior left nasal passage and is new when compared to exam dated 10/31/2022 but unchanged when compared to exam dated 11/19/2022. Trace amount of debris is noted along the floor of the anterior na geovanni cavity on the right (series 601 image 16) There is mild leftward nasal septal mihai ation with associated spur formation. The anterior ethmoidal artery canals are exposed by supraorbital air cells. Partially visualized brain demonstrates age-related changes including age- related brain volume loss, intracranial atherosclerotic disease, and mild white matter disease. The mastoids are clear the exception of minimal fluid within the right mastoid tip. Procedure Note Rubina Donald MD - 11/22/2022 FULL RESULT: Examination: CT SINUS WO CONTRAST on 11/22 3:07 PM Clinical History: Acute myeloblastic raphael kemia Indication: neutropenic pt with severe c ongestion, nasal drainage, fevers Comparison: CT head dated 11/19/2022 and C T head dated 10/31/2022 Technique: Sinus CT without intravenous contrast was performed. Findings: The frontal sinuses are clear. The ethmo id sinuses are clear. The sphenoid sinuses are clear. The sphenoethmoidal recesses are unremarkable. The maxillary sinuses are clear. No aggressive osseous destruction. No fat stranding involving the premaxillary fat pads. The ostiomeatal units are patent. A lobulated soft tissue density is ident ified anterior left nasal passage and is new when compared to exam dated 10/31/2022 but unchanged when compared to exam dated 11/19/2022. Trace amount of debris is noted along the floor of the anterior nasal cavity on th e right (series 601 image 16) There is mild leftward nasal septal mihai ation with associated spur formation. The anterior ethmoidal artery canals are exposed by supraorbital air cells. Partially visualized brain demonstrates age-related changes including age- related brain volume loss, intracranial atherosclerotic disease, and mild white matter disease. The mastoids are clear the exception of minimal fluid within the right mastoid tip. IMPRESSION: 1. The paranasal sinuses are clear. 2. Polypoid soft tissue within the left nasal passages new when compared to exam dated 10/31/2022 but unchanged from recent CT had. Recommend direct visualization for further assessment. 3. Nonspecific trace debris within the i nferior anterior right nasal passage. Myah Dillon NP IMG CT ORDERABLES Wound Culture w/Gram Stain (11/21/2022 2:40 PM FISHER MUSSEL) Component Value Ref Test Analysis Performed At Patholo gist Range Method Time Signature Final Report No growth [facility] Path Review Culture yield may be affecte d by sample quality, prior treatment, and transportation conditions. AR MD Cayetano HERRERA The results have been reviewed and electronically signed b y Pathologist: CANCER Enoz Segovia MD, PhD #[id number] C ENTER Gram Stain No WBC's seen. AR MD Report No organisms seen. [facility] Specimen Anatomical Collection Method Collection Time Receive d Time (Source) Location / / Volume Laterality Lesion (Thigh) 11/21/2022 2:40 PM 023 4:09 FISHER MUSSEL PM FISHER MUSSEL Gerhard Monte MD MICROBIOLOGY - GENERAL ORDER ANABELA Performing Organization Address City/State/ZIP Code Phon e Number [facility] Unless otherwise noted, [place] [address] [place] all lab tests performed by: Division of Pathology and Laboratory Medicine [address] [place] [address] X-ray Chest 1 View Portable (11/21/2022 1:41 AM FISHER MUSSEL) Anatomical Region Laterality Modality Chest Digital Radiography Specimen (Source) Anatomical Collection Method Collection Time Re ceived Time Location / / Volume Laterality 11/21/2022 4:28 AM FISHER MUSSEL Impressions 11/21/2022 7:34 AM FISHER MUSSEL 1. Findings consistent with multifocal pneumonia, including radiographically occult mass like consolidation of the right base, best seen on prior CT. Persistent right upper lung pneumonia with atelect asis, relatively stable in comparison to prior exam dated 11/12/2022 and 11/19/2022. 2. Preliminary findings were communica vincent via telephone to Jorge Mercado NP of the rope tier service at 0431 hours on 11/21/2022. I personally reviewed these image(s) chilo ng with the resident's/fellow's interpretations, certify that if a procedure was performed I was physically present, and agree with the final report. 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 Findings: Right upper extremity PICC tip projects at the superior SVC. Right greater than left lung opacities a re noted, with persistent volume loss and peripheral and space opacities involving the right upper lung. Mass like consolidation in the right lower lobe is best d emonstrated on CT 11/19/2022. Associated p eribronchial cuffing particularly within the right side. No pleural effusions or pneumothorax are identified. The cardiomediastinal silhouette is unch anged. The regional skeleton is unchanged. Procedure Note Jassi Mcmillan MD - 11/21/2022F ormatting of this note might be different from the original. 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 Findings: Right upper extremity PICC tip projects at the superior SVC. Right greater than left lung opacities a re noted, with persistent volume loss and peripheral and space opacities involving the right upper lung. Mass like consolidation in the right lower lobe is best demonstrated on CT 11/19/2022. Associated peribronchial cuffi ng particularly within the right side. No pleural effusions or pneumothorax are identified. The cardiomediastinal silhouette is unch anged. The regional skeleton is unchanged. IMPRESSION: 1. Findings consistent with multifocal p neumonia, including radiographically occult mass like consolidation of the right base, best seen on prior CT. Persistent right upper lung pneumonia with atelectasis, relatively stable in comparison to prior exam dated 11/12/2022 and 11/19/2022. 2. Preliminary findings were communicate d via telephone to Jorge Mercado NP of the rope tier service at 0431 hours on 11/21/2022. I personally reviewed these image(s) chilo ng with the resident's/fellow's interpretations, certify that if a procedure was performed I was physically present, and agree with the final report. Jorge LUO IMG DIAGNOSTIC IMAGING ORDER ANABELA (ABNORMAL) VRE Rectal Swab (11/20/2022 9:27 PM FISHER MUSSEL)Only the most recent of2 resultswithin the time period is included. 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 CANCER (A) CENTER Path Review - The results have been review ed and electronically signed by Pathologist: AR MD CAROLE Segovia MD, PhD #[id number] [facility] ([facility] Specimen Anatomical Collection Method Collection Time Receive d Time (Source) Location / / Volume Laterality Rectal Swab 11/20/2022 9:27 PM FISHER MUSSEL 10:36 PM FISHER MUSSEL Sheela LUO MICROBIOLOGY - GENERAL ORDER ANABELA Performing Organization Address City/State/ZIP Code Phon e Number AR [facility] Unless otherwise noted, [place] [address] [place] all lab tests performed by: Division of Pathology and Laboratory Medicine [facility]5 [facility] CT Head without Contrast (11/19/2022 2:42 PM FISHER MUSSEL)Only the most recent of2 resultswithin the time period is included. Anatomical Region Laterality Modality Head Computed Tomography Specimen (Source) Anatomical Collection Method Collection Time Re ceived Time Location / / Volume Laterality 11/19/2022 2:54 PM FISHER MUSSEL Impressions 11/19/2022 3:38 PM FISHER MUSSEL No acute intracranial abnormality. No intracranial hemorrhage. I personally reviewed these image(s) chilo ng with the resident's/fellow's interpretations, certify that if a procedure was performed I was physically present, and agree with the final report. Narrative 11/19/2022 3:38 PM FISHER MUSSEL FULL RESULT: Examination: CT HEAD WO CONTRAST on 2022 2:42 PM Clinical History: Acute leukemia Indication: Headache, new onset Comparison: CT head, 10/31/2022 Technique: CT head was performed without intravenous contrast. Findings: There is no evidence of acute large terr itory infarction, intracranial hemorrhage, mass effect/midline shift or hydrocephalus. Mucosal thickening and partial opacifica tion in the left anterior nasal cavity. Otherwise, the paranasal sinuses and mastoid air cells are clear. Procedure Note Carmine Velázquez MD - 11/19/2022 FULL RESULT: Examination: CT HEAD WO CONTRAST on 2022 2:42 PM Clinical History: Acute leukemia Indication: Headache, new onset Comparison: CT head, 10/31/2022 Technique: CT head was performed without intravenous contrast. Findings: There is no evidence of acute large terr itory infarction, intracranial hemorrhage, mass effect/midline shift or hydrocephalus. Mucosal thickening and partial opacifica tion in the left anterior nasal cavity. Otherwise, the paranasal sinuses and mastoid air cells are clear. IMPRESSION: No acute intracranial abnormality. No intracranial hemorrhage. I personally reviewed these image(s) chilo ng with the resident's/fellow's interpretations, certify that if a procedure was performed I was physically present, and agree with the final report. Zamzam NEGRON IMG CT ORDERABLES Maribel-Pop Virus Quantitative PCR Collection, Blood (11/17/2022 3:09 PM FISHER MUSSEL) athologist Signature Molecular Yes AR [facility] (Received) Specimen Anatomical Collection Method Collection Time Receive d Time (Source) Location / / Volume Laterality Blood 11/17/2022 3:09 PM 3 9:18 FISHER MUSSEL AM FISHER MUSSEL Nicol HERRING MD BLOOD COLLECTIONS Performing Organization Address City/State/ZIP Code Phon e Number [facility] Unless otherwise noted, [place] [address] CENTER all lab tests performed by: Division of Pathology and Laboratory Medicine [facility]5 [place] CMV Quant PCR (11/17/2022 3:09 PM FISHER MUSSEL) [facility] gist Method Time Signature CMV DNA PCR Target Not Target Not MARILY COVARRUBIAS Detected Detected SHARON IU/mL CANCER CENTER Comment: Normal Range: Target Not Detected. Reportable Range: 34.5 to 4,000,000 CM V DNA IU/mL; values between 4,000,000 to 10,000,000 CMV DNA IU/mL may be reported but these should be interpreted with caution as this range of the assay has not been internally verified. The clinical s ignificance of CMV levels at 4,000,000 IU/ml verses those above 4,000,000 is unclear. Results are expressed in CMV DNA IU/ml p [facility]. Methodology: The extraction and quanti tation of cytomegalovirus (CMV) DNA in human plasma is performed using the [employer] System. Amplification of viral DNA is achieved using polymerase chain reacti on (PCR). Internal controls are included to assess for possible amplification inhibitors. I f inhibition is detected, the specimen is tested again and if inhibition is confirmed the specimen is resulted as "Invalid". When an "Invalid" results occurs, it is recommended to wait a minimum of 7-10 days before submitting a new specimen for testing. This is an FDA-approved assay and its pe rformance characteristics were verified by the microbiology laboratory at the [facility] [place]. Results must be interpreted within th e context of all relevant clinical and l aboratory findings. Specimen Anatomical Collection Method Collection Time Receive d Time (Source) Location / / Volume Laterality Blood 11/17/2022 3:09 PM 5:33 FISHER MUSSEL PM FISHER MUSSEL Nicol Cook NP LAB BLOOD ORDERABLES Performing Organization Address City/State/ZIP Code Phon e Number [facility] Unless otherwise noted, [place] [address] [place] all lab tests performed by: Division of Pathology and Laboratory Medicine [address] MD Maribel-Pop Virus Quantitative PCR Interpretation and Report (11/17/2022 3:09 PM FISHER MUSSEL) Specimen (Source) Anatomical Collection Method Collection Time Re ceived Time Location / / Volume Laterality 11/17/2022 3:09 PM FISHER MUSSEL Narrative This result has an attachment that is no t available. Nicol Cook NP, MDA [facility] MOLECULAR DIAGNOSTICS (NEVAEH COVARRUBIAS) (ABNORMAL) Plt Count (11/17/2022 3:09 PM FISHER MUSSEL) athologist Signature Platelet count 26 (L) 140 - 440 [facility] K/uL CANCER CENTER MPV 9.6 4.0 - 10.4 [facility] CENTER Specimen Anatomical Collection Method Collection Time Receive d Time (Source) Location / / Volume Laterality Blood 11/17/2022 3:09 PM 2 3:25 FISHER MUSSEL PM FISHER MUSSEL Nicol Cook WATER REUSE PROGRAM MANAGER LAB BLOOD ORDERABLES Performing Organization Address City/[facility]/ZIP Code Phon e Number [facility] Unless otherwise noted, [address] all lab tests performed by: Division of Pathology and Laboratory Medicine [address] [place] [address] HBV DNA Quant (11/17/2022 2:22 AM FISHER MUSSEL)Only the most recent of5 resultswithin the time period is included. [facility] Method Time Signature HBV DNA Undetected Undetected [facility] IU/[facility] Comment: Result in log IU/mL is Undetected. ADDITIONAL INFORMATIO N The quantification range of this assay i s 10 to 1,000,000,000 IU/mL (1.00 log to 9.00 lo g IU/mL). Testing was performed using the hector HBV test ( [employer] with the hector 6800 Sy[address] m. Test Performed by: [place] [id number] Fruit Picker: Tristan Amos M.D. Ph. D.; CLIA# [id number] Specimen Anatomical Collection Method Collection Time Receive d Time (Source) Location / / Volume Laterality Blood 11/17/2022 2:22 AM 2 3:33 FISHER MUSSEL AM FISHER MUSSEL Zamzam NEGRON LAB BLOOD ORDERABLES Performing Organization Address City/State/ZIP Code Phon e Number [facility] Unless otherwise noted, [address] all lab tests performed by: Division of Pathology and Laboratory Medicine [address] [place] [address] (ABNORMAL) Hepatitis B Surface Antibody (11/17/2022 2:22 AM FISHER MUSSEL)Only the most recent of5 resultswithin the time period is included. [facility] Signature HBs Ab Reactive (A) Non Reactive [facility] Specimen Anatomical Collection Method Collection Time Receive d Time (Source) Location / / Volume Laterality Blood 11/17/2022 2:22 AM 2 7:26 FISHER MUSSEL AM FISHER MUSSEL Zamzam NEGRON LAB BLOOD ORDERABLES Performing Organization Address City/[facility] Phon e Number [facility] Unless otherwise noted, [address] all lab tests performed by: Division of Pathology and Laboratory Medicine [address] [place], [place] [address] Cryptococcal Ag Serum Path Review (11/16/2022 2:24 AM FISHER MUSSEL) Component Value Ref Test Analysis Performed At [facility] Signature Crypto Ag, Reviewed and Electronically signed by Pathologist: AR Serum CT Edenilson Orr MD, PhD #[id number] [facility] Comment: Reference Range: NEGATIVE The Cryptococcal Antigen Lateral Flow As say is a dipstick sandwich immunographic assay. Positive results will be titered. EDENILSON ORR MD, PhD - [id number] Dictated by: EDENILSON ORR MD, PhD - [id number] [phone] Dictated Date/Time: 11.17.2022 10:28 AM FISHER MUSSEL Transcribed Date/Time: 11.17.2022 10:28 AM FISHER MUSSEL Electronically Signed By: EDENILSON ORR MD, PhD - [id number] on 11.17.2022 10:28 AM Specimen Anatomical Collection Method Collection Time Receive d Time (Source) Location / / Volume Laterality Blood 11/16/2022 2:24 AM 2 1:33 FISHER MUSSEL PM FISHER MUSSEL Nadya NEGRON MICROBIOLOGY - GENERAL ORDER ANABELA Performing Organization Address City/[facility] Phon e Number [facility] Unless otherwise noted, [address] all lab tests performed by: Division of Pathology and Laboratory Medicine [address] [place] [address] [place] Cryptococcal Antigen, Serum (11/16/2022 2:24 AM FISHER MUSSEL) [facility] Signature Cryptococcal Ag Negative [facility] Specimen Anatomical Collection Method Collection Time Receive d Time (Source) Location / / Volume Laterality Blood 11/16/2022 2:24 AM 2 3:28 FISHER MUSSEL AM FISHER MUSSEL Nadya NEGRON MICROBIOLOGY - GENERAL ORDER ANABELA Performing Organization Address City/State/ZIP Code Phon e Number [facility]ER Unless otherwise noted, [place] [address] CENTER all lab tests performed by: Division of Pathology and Laboratory Medicine [facility]5 [facility] Respiratory Viral Panel, Send-Out (BAL) (11/14/2022 1:11 PM FISHER MUSSEL) [facility] Method Time Signature RVP Specimen BAL [facility] RVP Adenovirus Not Detected Not Detected [facility] Comment: Detects Serotypes B and E. Detection o f Serotype C may be limited. If Adenovirus infection is suspected and a Not Detected result is returned the sample should be re-tested for adenovirus using an independent method (e.g. Nonpareilaco r Adenovirus Quantitative Real-time PCR test). RVP Enterovirus/Rhinovirus Not Detected Not Detected [facility] RVP Bocavirus Not Detected Not Detected [facility] RVP Coronavirus Not Detected Not Detected [facility] Comment: This test does NOT assay for the novel 2 019 Coronavirus out of [place]. This test detects the respiratory Coronaviruses: types 229E, OC43, NL63, and HKU1. RVP Metapneumovirus Not Detected Not Detected [facility] RVP Influenza A Not Detected Not Detected [facility] RVP Influenza A-[id number] Not Detected Not Detected [facility] RVP Influenza B Not Detected Not Detected [facility] RVP Parainfluenza Not Detected Not Detected [facility] RVP Respiratory Syncytial Not Detected Not Detected [facility] Comment: The Respiratory Syncytial Viral assay de tects both types A and B, however it does not distinguish between the two. Target Enriched Multiplex Polymerase Tala in Reaction (TEM-PCR) allows for the detection of multiple pathogens out of a single reaction. This test was developed and its performa nce characteristics determined by [facility]. It has n ot been cleared or approved by the U.S. Food and Drug Administration . Results should be used in conjunction with clinical findings, and should not form the sole basis for a diagnosis or treatment decis ion. TEM-PCR is a licensed technology of [employer]. Performed At: [facility] [address] [place] [address] Regional Commercial Sales Manager: Adam Freitas Ph.D., B CLD (ABB) CLIA#: [id number] Phone: Specimen Anatomical Collection Method Collection Time Receive d Time (Source) Location / / Volume Laterality BAL 11/14/2022 1:11 PM 2 FISHER MUSSEL 11:53 AM FISHER MUSSEL Rigoberto Phillip MD MICROBIOLOGY - GENERAL ORDER ANABELA Performing Organization Address City/[facility] Phon e Number [facility] Unless otherwise noted, [address] all lab tests performed by: Division of Pathology and Laboratory Medicine [address] [place] [address] Body Fluid Differential (11/14/2022 1:11 PM FISHER MUSSEL) athologist Signature Tot Cells BF 100 [facility] Neut BF 0 0 - 25 % [facility] Lymph BF 2 % [facility] Comment: This assay has been validated f or body fluids. No reference ranges have been established. Test results should be inte rpreted in context with the patient s clinical condition. Pathologist consul t is available. Histiocyte BF 98 % [facility] Comment: This assay has been validated f or body fluids. No reference ranges have been established. Test results should be inte rpreted in context with the patient s clinical condition. Pathologist consul t is available. Specimen Anatomical Collection Method Collection Time Receive d Time (Source) Location / / Volume Laterality BAL 11/14/2022 1:11 PM 2 2:12 FISHER MUSSEL PM [facility]ER MUSSEL Rigoberto Phillip MD BODY FLUIDS AND STOOLS ORDER ANABELA Performing Organization Address City/[facility] Code Phon e Number [facility] Unless otherwise noted, [address] all lab tests performed by: Division of Pathology and Laboratory Medicine [facility]5 [facility] Body Fluid Diff Path Review (11/14/2022 1:11 PM FISHER MUSSEL) [facility] Time [facility] Body Fluid NO DIAGNOSTIC MARILY COVARRUBIAS Diff Interp EVIDENCE OF SHARON MALIGNANCY. [facility] Comment: AMELIA PERALTA MD, PhD - [id number] Dictated by: AMELIA PERALTA MD, PhD - [id number] Dictated Date/Time: 11.15.2022 14:39 PM FISHER MUSSEL Transcribed Date/Time: 11.15.2022 14:39 PM FISHER MUSSEL Electronically Signed By: Haris REID, PhD - [id number] on 11.15.2022 14:39 PM Specimen Anatomical Collection Method Collection Time Receive d Time (Source) Location / / Volume Laterality BAL 11/14/2022 1:11 PM 2 2:12 FISHER MUSSEL PM [facility]ER [facility]SEL Rigoberto Phillip MD BODY FLUIDS AND STOOLS ORDER ANABELA Performing Organization Address City/State/ZIP Code Phon e Number [facility] Unless otherwise noted, [address] all lab tests performed by: Division of Pathology and Laboratory Medicine [address] [place] [address] Pneumocystis jiroveci Quant, BAL (11/14/2022 1:11 PM FISHER MUSSEL) [facility] Method Time Signature P. jiroveci Not Detected Not Detected MARILY COVARRUBIAS [facility] copies/mL [facility] Comment: Assay Range: 84 copies/mL to 1.00E+08 co pies/mL The limit of quantitation (LOQ) is 84 co pies/mL. Pneumocystis jiroveci DNA detected below the LOQ will be reported as Detected:<84 copies/mL. This test was developed and its performa nce characteristics determined by [facility]. It has n ot been cleared or approved by the U.S. Food and Drug Administration . Results should be used in conjunction with clinical findings, and should not form the sole basis for a diagnosis or treatment decis ion. Performed At: [facility] [address] [place] [address] Regional Commercial Sales Manager: Adam Freitas Ph.D., B CLD ([facility]) [facility]#: [id number] Phone: Specimen Anatomical Collection Method Collection Time Receive d Time (Source) Location / / Volume Laterality BAL 11/14/2022 1:11 PM FISHER MUSSEL 11:53 AM FISHER MUSSEL Rigoberto Phillip MD MICROBIOLOGY - GENERAL ORDER ANABELA Performing Organization Address City/State/ZIP Code Phon e Number [facility] Unless otherwise noted, [address] all lab tests performed by: Division of Pathology and Laboratory Medicine [facility]5 [facility] CMV Quant BAL (11/14/2022 1:11 PM FISHER MUSSEL) [facility] Method Time Signature CMV Not Detected Not Detected AR BAL-[facility] IU/mL [facility] Comment: Assay Range: 79 IU/mL to 1.88E+08 IU/mL One IU is equal to 0.53 copies of CMV. The limit of quantitation (LOQ) is 79 IU /mL. CMV DNA detected below the LOQ will be reported as Detected:<79 IU/mL. This test was developed and its performa nce characteristics determined by [employer]. It has n ot been cleared or approved by the U.S. Food and Drug Administration . Results should be used in conjunction with clinical findings, and should not form the sole basis for a diagnosis or treatment decis ion. Performed At: [facility] [id number] [address] Regional Commercial Sales Manager: Adam Freitas Ph.D., B CLD (ABB) [place]#: [id number] Phone: Specimen Anatomical Collection Method Collection Time Receive d Time (Source) Location / / Volume Laterality BAL 11/14/2022 1:11 PM 2 FISHER MUSSEL 11:53 AM [facility]SEL Rigoberto Phillip MD MICROBIOLOGY - GENERAL ORDER ANABELA Performing Organization Address City/[facility] Code Phon e Number [facility] Unless otherwise noted, [address] all lab tests performed by: Division of Pathology and Laboratory Medicine [address] [facility] Aspergillus Ag Assay Path Review (11/14/2022 1:11 PM FISHER MUSSEL) Patholo gist Method Time Signature ASP Ag CT Reviewed and Electronically signed by Pathologist: MARILY Orr MD, PhD #[id number] [facility] Comment: Testing performed by immunoenzymatic met hodology which detects Aspergillus galactomannan antigen. REFERENCE RANGE: <0.5 index = Negative for galactomannan antigen > or = 0.5 index = Positive for galactom edita antigen EDENILSON ORR MD, PhD - [id number] Dictated by: EDENILSON ORR MD, PhD - [phone] Dictated Date/Time: 11.16.2022 12:57 PM FISHER MUSSEL Transcribed Date/Time: 11.16.2022 12:57 PM FISHER MUSSEL Electronically Signed By: EDENILSON ORR MD, PhD - [id number] on 11.16.2022 12:57 PM Specimen Anatomical Collection Method Collection Time Receive d Time (Source) Location / / Volume Laterality BAL 11/14/2022 1:11 PM 2 4:09 FISHER MUSSEL PM [facility]ER MUSSEL Rigoberto Phillip MD MICROBIOLOGY - GENERAL ORDER ANABELA Performing Organization Address City/[facility]/ZIP Code Phon e Number [facility] Unless otherwise noted, [address] all lab tests performed by: Division of Pathology and Laboratory Medicine [address] [facility] Aspergillus Ag Assay (11/14/2022 1:11 PM FISHER MUSSEL) Component Value Ref Test Analysis Performed At [facility] Range Method Time Signature Aspergillus 0.10 0.00 - AR Antigen Index 0.49 [facility] Aspergillus NEGATIVE; AR Antigen Inter Antifungal [place] therapy can CANCER lower CENTER circulating galactomannan levels below the detectable range. Aspergillus NEG [facility] Specimen Anatomical Collection Method Collection Time Receive d Time (Source) Location / / Volume Laterality BAL 11/14/2022 1:11 PM 2 3:59 FISHER MUSSEL PM FISHER MUSSEL Rigoberto Phillip MD MICROBIOLOGY - GENERAL ORDER ANABELA Performing Organization Address City/State/ZIP Code Phon e Number [facility] Unless otherwise noted, [address] all lab tests performed by: Division of Pathology and Laboratory Medicine [place] Fungus Culture w/ Smear (11/14/2022 1:11 PM FISHER MUSSEL)Only the most recent of2 results within the time period is included. Component Value Ref Test Analysis Performed At [facility] Method Time Signature Final Report No fungus MARILY COVARRUBIAS isolated at 4 [facility] Path Review - Culture yield may be affecte d by sample quality, prior treatment, and transportation conditions. MARILY COVARRUBIAS Fungus ... SHARON The results have been reviewed and electronically signed b y Pathologist: CANCER Enzo Segovia MD, PhD #[id number] C ENTER Calcofluor No Fungi seen in direct smear MARILY COVARRUBAIS Stain Test performed by fluorescent stain methodology. [facility] Specimen Anatomical Collection Method Collection Time Receive d Time (Source) Location / / Volume Laterality BAL 11/14/2022 1:11 PM 2 4:09 FISHER MUSSEL PM FISHER MUSSEL Narrative [facility] - 3 9:36 PM FISHER MUSSEL Cultures are held for 4 weeks before fin alization. Rigoberto Phillip MD MICROBIOLOGY - GENERAL ORDER ANABELA Performing Organization Address City/State/ZIP Code Phon e Number [facility] Unless otherwise noted, [address] all lab tests performed by: Division of Pathology and Laboratory Medicine [address] Legionella Culture (11/14/2022 1:11 PM FISHER MUSSEL) Component Value Ref Test Analysis Performed At [facility] Method Time Signature Final Report No Legionella MARILY COVARRUBIAS species isolated [facility] Path Review - Legionella absent or below limits of detection. MARILY COVARRUBIAS Legionella Culture yield may be affecte d by sample quality, prior treatment, and transportation conditions. SHARON ... CANCER The results have been reviewed and electronically signed b y Pathologist: BRETT Segovia MD, PhD #[id number] Specimen Anatomical Collection Method Collection Time Receive d Time (Source) Location / / Volume Laterality BAL 11/14/2022 1:11 PM 2 4:08 FISHER MUSSEL PM FISHER MUSSEL Rigoberto Phillip MD MICROBIOLOGY - GENERAL ORDER ANABELA Performing Organization Address [facility] e [facility] CANCER Unless otherwise noted, [address] all lab tests performed by: Division of Pathology and Laboratory Medicine [address] Cell Count BF (11/14/2022 1:11 PM FISHER MUSSEL) athologist Signature Type BF BAL [facility] Appear BF HAZY [facility] WBC BF 24 /[facility] Comment: This assay has been validated f or body fluids. No reference ranges have been established. Test results should be inte rpreted in context with the patient s clinical condition. Pathologist consul t is available. RBC BF 235 /mcL [facility] Comment: This assay has been validated f or body fluids. No reference ranges have been established. Test results should be inte rpreted in context with the patient s clinical condition. Pathologist consul t is available. Specimen Anatomical Collection Method Collection Time Receive d Time (Source) Location / / Volume Laterality BAL 11/14/2022 1:11 PM 2 2:12 FISHER MUSSEL PM FISHER MUSSEL Rigoberto Phillip MD BODY FLUIDS AND STOOLS ORDER ANABELA Performing Organization Address [facility] Phon e [facility] CANCER Unless otherwise noted, [address] all lab tests performed by: Division of Pathology and Laboratory Medicine [address] [place] (ABNORMAL) Urinalysis Microscopic Exam (11/12/2022 4:03 PM FISHER MUSSEL)Only the most recent of3 resultswithin the time period is included. athologist Signature UA WBC 1 0 - 2 /HPF [facility] Comment: Some reporting parameters within the Uri nalysis test have changed due to the implementation of new instrumentation in the [facility] [place], allowing greater sensitivity of measurement. Urinalysis results rep orted by the [facility] using existing instrumentation, as well as Urinalysis t esting performed manually or by backup methodology at the [place] will remain relatively unchanged. New reporting parameters and units will not be reported for all campuses. UA RBC 3 (H) 0 - 2 /HPF [facility] CAN ER CENTER UA Mucous NOT SEEN Not Seen-Trace /HPF AR MD [facility] CANCER CENTER UA Bacteria OCC (A) NOT SEEN /HPF [facility] UA Squam Epi OCC None-Occasional /HPF [facility] UA Gran Cast 4 (H) <=0 /LPF [facility] CA [facility]ENTER Specimen Anatomical Collection Method Collection Time Receive d Time (Source) Location / / Volume Laterality Urine 11/12/2022 4:03 PM 4:14 FISHER MUSSEL PM FISHER MUSSEL Kylie Neumann NP LAB BLOOD ORDERABLES Performing Organization Address City/State/ZIP Code Phon e Number [facility]CER Unless otherwise noted, [place] [address] [place] all lab tests performed by: Division of Pathology and Laboratory Medicine [address] (ABNORMAL) POC ABG (11/12/2022 3:35 PM FISHER MUSSEL) athologist Signature POC AB pH 7.48 (H) 7.35 - 7.45 [facility] Comment: The i-STAT is an analyzer used for in vi tro quantification of various analytes in whole blood. The device uses a single disposable cartridge which contains microfabricated sensors, a calibration Gooddler n, fluidics system, and a waste chamber. Each test cartridge contains chemically sensitive biosensors on a silicon chip that are configured to perform specific tests. The microfabricated sensors measure analyte concentration by an electrochemical assay. POC AB pCO2 35 35 - 45 mmHg [facility] POC AB pO2 308 (H) 80 - 105 mmHg [facility] POC AB TCO2 28 (H) 23 - 27 mEq/L [facility] POC AB Bicarb 27 (H) 22 - 26 mmol/L [facility] POC AB Base Ex 3 -2 - 3 mmol/L [facility] POC AB O2 Sat 100 (H) 95 - 98 % [facility] POC FiO2 80 [facility]OC [facility] POC ABG Draw Site Lt Radial POC [facility] POC Sin Test Performed POC [facility] POC Sample Type Arterial POC [facility] POC Clean Dev Yes POC [facility] Performing Lab [facility] POC TELCO R Comment: [facility], [address] [place] [address], [place] [address]; Lab Direct or: Destiny Ventura MD Specimen Anatomical Collection Method Collection Time Receive d Time (Source) Location / / Volume Laterality Blood 11/12/2022 3:35 PM 2 3:35 FISHER MUSSEL PM FISHER MUSSEL Lorne Youssef MD POCT ORDERABLES - DEVICE Performing Organization Address [facility] Phon e Number POC [facility] Unless otherwise noted, [place] [address] lab tests performed by: Division of Pathology and Laboratory Medicine [address] [place] [address] POC [facility] Unless otherwise notes, [place] [address] lab tests performed by: Division of Pathology and Laboratory Medicine [address] [place] [address] Aspergillus Ag Assay, Serum (11/12/2022 1:19 AM FISHER MUSSEL) Component Value Ref Test Analysis Performed At [facility] Method [place] Signature Aspergillus 0.06 0.00 - AR Antigen Index 0.49 [facility] Aspergillus NEGATIVE; AR Antigen [facility] therapy can CANCER lower CENTER circulating galactomannan levels below the detectable range. Aspergillus NEG AR MD Antigen [facility] Specimen Anatomical Collection Method Collection Time Receive d Time (Source) Location / / Volume Laterality Blood 11/12/2022 1:19 AM 2 3:03 FISHER MUSSEL AM FISHER MUSSEL Venkat Street MD MICROBIOLOGY - GENERAL ORDER ANABELA Performing Organization Address [facility] Phon e Number [facility]ER Unless otherwise noted, [place] [address] CENTER all lab tests performed by: Division of Pathology and Laboratory Medicine [address] [place] [address] Aspergillus Ag Assay, Serum Path Review (11/12/2022 1:19 AM FISHER MUSSEL) Component Value Ref Test Analysis Performed At [facility] Method [place] Signature Asp Ag Serum Reviewed and Electronically signed by Pathologist: MARILY Orr MD, PhD #[id number] [facility] Comment: Testing performed by immunoenzymatic met hodology which detects Aspergillus galactomannan antigen. REFERENCE RANGE: <0.5 index = Negative for galactomannan antigen > or = 0.5 index = Positive for galactom edita antigen EDENILSON ORR MD, PhD - [id number] Dictated by: EDENILSON ORR MD, PhD - [phone] Dictated Date/Time: 11.14.2022 12:58 PM FISHER MUSSEL Transcribed Date/Time: 11.14.2022 12:58 PM FISHER MUSSEL Electronically Signed By: EDENILSON ORR MD, PhD - [id number] on 11.14.2022 12:58 PM Specimen Anatomical Collection Method Collection Time Receive d Time (Source) Location / / Volume Laterality Blood 11/12/2022 1:19 AM 2 3:03 FISHER MUSSEL AM FISHER MUSSEL Venkat Street MD LAB BLOOD ORDERABLES Performing Organization Address City/[facility]/ZIP Code Phon e Number [facility] CANCER Unless otherwise noted, [address] all lab tests performed by: Division of Pathology and Laboratory Medicine [facility] [address] [place] MRSA Screening Culture (11/09/2022 9:22 PM FISHER MUSSEL) Component Value Ref Test Analysis Performed At [facility] gist Range Method Time Signature Final Report No Methicillin [facility] Staphylococcus CANCER aureus isolated. CENTER Path Review The results have been review ed and electronically signed by Pathologist: AR MD BRODY GRIFFIN MD #[id number] A [facility] Specimen Anatomical Collection Method Collection Time Receive d Time (Source) Location / / Volume Laterality Nasal 11/09/2022 9:22 PM 2 FISHER MUSSEL 10:28 PM FISHER MUSSEL Lorne Youssef MD MICROBIOLOGY - GENERAL ORDER ANABELA Performing Organization Address City/State/[facility] Phon e Number [facility]CER Unless otherwise noted, [address] all lab tests performed by: Division of Pathology and Laboratory Medicine [address] [place], [place] [address]cor[place] PETCT Subsequent Treatment Strategy (11/06/2022 8:41 AM FISHER MUSSEL) Anatomical Region Laterality Modality Whole Body Positron Emission To mography (PET) Specimen (Source) Anatomical Collection Method Collection Time Re ceived Time Location / / Volume Laterality 11/06/2022 9:20 AM FISHER MUSSEL Impressions 11/06/2022 9:38 AM FISHER MUSSEL 1. 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 2. No additional sites of focally FDG-av id leukemia are identified. 3. FDG-avid opacities in the right lung are consistent with an infectious/inflammatory process. Narrative 11/06/2022 9:38 AM FISHER MUSSEL FULL RESULT: Examination: FDG PET/CT, 11/06/2022 8:41 AM Clinical History: 72-year-old male with recent diagnosis of acute myeloid leukemia with cutaneous involvement. Indication: Evaluate for FDG-avid diseas e, for initial treatment strategy purposes. Comparison: No prior PET/CT is available . CT dated 10/29/2022 is reviewed. Technique: F-18 fluorodeoxyglucose (FDG) 10.7 mCi was administered intravenously via the right subclavian longline catheter. To allow for distribution and uptake of radiotracer, the patient was asked to rest quietly for approximately 70 min utes. PET/CT imaging was performed from the skull vertex to the mid thigh. CT scanning was done for attenuation correction, image registration, and diagnosis wi th scan parameters optimized to minimize radiation exposure to the patient. SUV measurements are reported as maximum SUV based on body weight unless otherwise specified. Findings: Head and Neck: There is no focal abnorma l metabolic activity in the brain. The sinuses are well aerated. A few small mildly active upper neck nodes are consistent with reactive nodes. Chest: Mildly prominent bilateral axilla ry lymph nodes with minimal associated activity are compatible with additional reactive nodes. No enlarged or FDG-avid mediastinal or hilar lymph nodes are present. There is no pleural nor pericardial effusion. A new area of mildly active focal ground glass lung opacification in the inferoposterior right upper lobe (image 134) and an anatomically stable area of active opacification in the inferior right lower l obe (image 174) are compatible with an i nfectious/inflammatory process. No distinct lung nodules are noted. Abdomen and Pelvis: A small mildly activ e left inguinal node is consistent with a reactive node. No enlarged or focally active abdominal, pelvic, or right inguinal lymph nodes are identified. The spleen has normal size and shows no abnormal a ctivity. The right adrenal gland is heavily calcified, suggesting sequela of prior infection or trauma; there is no associated FDG-avidity. Evaluation of the unen hanced liver, pancreas, gallbladder, lef t adrenal gland, kidneys, and bowel is unremarkable. Musculoskeletal: A few mildly active ski n nodules within the right anterior upper thigh have SUV of 2.7 (image 309) and 3.3 (image 318). No additional FDG- avid cutaneous/subcutaneous soft tissue lesions are appreciated. No focal FDG-avidity is noted in the marilyn ged skeleton to indicate focally active malignancy. No suspicious lytic or blastic skeletal abnormalities are observed. Procedure Note Yamile Davila MD - 11/06/2022 FULL RESULT: Examination: FDG PET/CT, 11/06/2022 8:41 AM Clinical History: 72-year-old male with recent diagnosis of acute myeloid leukemia with cutaneous involvement. Indication: Evaluate for FDG-avid diseas e, for initial treatment strategy purposes. Comparison: No prior PET/CT is available . CT dated 10/29/2022 is reviewed. Technique: F-18 fluorodeoxyglucose (FDG) 10.7 mCi was administered intravenously via the right subclavian longline catheter. To allow for distribution and uptake of radiotracer, the patient was asked to rest quietly for approximately 70 minutes. PE T/CT imaging was performed from the skull vertex to the mid thigh. CT scanning was done for attenuation correction, image registration, and diagnosis with scan parameters optimized to minimize radiation exposure to the patient. SUV measurements are reported as maximum SUV based on body weight unless otherwise specified. Findings: Head and Neck: There is no focal abnorma l metabolic activity in the brain. The sinuses are well aerated. A few small mildly active upper neck nodes are consistent with reactive nodes. Chest: Mildly prominent bilateral axilla ry lymph nodes with minimal associated activity are compatible with additional reactive nodes. No enlarged or FDG-avid mediastinal or hilar lymph nodes are present. There is no pleural nor pericardial effusion. A new area of mildly active focal ground glass lung opacification in the inferoposterior right upper lobe (image 134) and an anatomically stable area of active opacification in the inferior right lower lobe (image 174) are compatible with an infectious/inflam matory process. No distinct lung nodules are noted. Abdomen and Pelvis: A small mildly activ e left inguinal node is consistent with a reactive node. No enlarged or focally active abdominal, pelvic, or right inguinal lymph nodes are identified. The spleen has normal size and shows no abnormal activity. The right ad renal gland is heavily calcified, suggesting sequela of prior infection or trauma; there is no associated FDG- avidity. Evaluation of the unenhanced liver, pancreas, gallbladder, left adrenal gland, kidneys, and bowel i s unremarkable. Musculoskeletal: A few mildly active ski n nodules within the right anterior upper thigh have SUV of 2.7 (image 309) and 3.3 (image 318). No additional FDG- avid cutaneous/subcutaneous soft tissue lesions are appreciated. No focal FDG-avidity is noted in the marilyn ged skeleton to indicate focally active malignancy. No suspicious lytic or blastic skeletal abnormalities are observed. IMPRESSION: 1. Small adjacent mildly active skin nod ules within the right upper anterior thigh are compatible with the biopsy-proven cutaneous involvement by acute myeloid leukemia. 2. No additional sites of focally FDG-av id leukemia are identified. 3. FDG-avid opacities in the right lung are consistent with an infectious/inflammatory process. Lorne Youssef MD IM PETCT ORDERABLES (ABNORMAL) Complete Blood Count w/o Differential (11/02/2022 12:30 PM FISHER MUSSEL) P athologist Signature WBC 22.5 (H) 4.0 - 11.0 [facility] RBC 2.90 (L) 4.50 - [place] MD 6.00 M/[facility] Hgb 9.3 (L) 14.0 - AR MD 18.0 gm/dL [facility] Hct 26.3 (L) 40.0 - [place] MD 54.0 % [facility] MCV 91 82 - 98 [facility] MCH 32.1 (H) 27.0 - AR MD 31.0 pg [facility] MCHC 35.4 31.0 - [place] MD 36.0 gm/dL [facility] RDW-SD 46.8 (H) 35.1 - AR MD 46.3 [facility] RDW-CV 14.2 12.0 - AR MD 15.5 % [facility] Platelet count 48 (L) 140 - [address] [facility] K/[facility] MPV 9.9 4.0 - 10.4 [facility] INRBC 0.1 (H) <=0.0 % [facility] Comment: The INRBC (instrument NRBC) value reflec ts the enumeration of nucleated red blood cells contained i n a 200uL sample of whole blood analyzed by the instrumen t. This value may differ from the NRBC value reported in a manual differential, which is based on a 100 cell differentia l. Specimen Anatomical Collection Method Collection Time Receive d Time (Source) Location / / Volume Laterality Blood 11/02/2022 12:30 11/02/2022 PM FISHER MUSSEL 12:34 PM FISHER MUSSEL Britta Lee WATER REUSE PROGRAM MANAGER LAB BLOOD ORDERABLES Performing Organization Address City/State/ZIP Code Phon e Number [facility] Unless otherwise noted, [address] all lab tests performed by: Division of Pathology and Laboratory Medicine [address] [place] [address] Silvestre Potassium Venous (11/01/2022 11:39 PM FISHER MUSSEL) athologist Signature V K 4.4 3.4 - 4.5 [facility] mEq/L [facility] Specimen Anatomical Collection Method Collection Time Receive d Time (Source) Location / / Volume Laterality Blood 11/01/2022 11:39 11/01/2022 PM FISHER MUSSEL 11:44 PM FISHER MUSSEL Narrative [facility] - 2 11:45 PM FISHER MUSSEL TLS. Draw 4 hours post cytarabine admini stration Nicol Cook NP LAB BLOOD ORDERABLES Performing Organization Address City/State/ZIP Code Phon e Number [facility] Unless otherwise noted, [address] all lab tests performed by: Division of Pathology and Laboratory Medicine [address] [place] [address] Silvestre Osmolality (11/01/2022 1:36 AM FISHER MUSSEL) P athologist Signature Osmolality 289 275 - 300 [facility] mOsm/kg H2O [facility] Comment: Units in mOsm per kg of water. Specimen Anatomical Collection Method Collection Time Receive d Time (Source) Location / / Volume Laterality Blood 11/01/2022 1:36 AM 3:55 FISHER MUSSEL AM FISHER MUSSEL Lorne Youssef MD LAB BLOOD ORDERABLES Performing Organization Address City/State/ZIP Code Phon e Number [facility] Unless otherwise noted, [address] all lab tests performed by: Division of Pathology and Laboratory Medicine [address] [place] [address] Silvestre Sodium Level, Urine (10/31/2022 12:00 PM FISHER MUSSEL) athologist Signature U Sodium 65 mEq/L [facility] Comment: Normal range not available for collections less than 24 hours in duration. Specimen Anatomical Collection Method Collection Time Receive d Time (Source) Location / / Volume Laterality Urine 10/31/2022 12:00 10/31/2022 1:00 PM FISHER MUSSEL PM FISHER MUSSEL Nicol Cook NP URINE ORDERABLES Performing Organization Address City/[facility] Phon e Number [facility] Unless otherwise noted, [address] all lab tests performed by: Division of Pathology and Laboratory Medicine [address] [place], [place] [address]d Osmolality Urine (10/31/2022 12:00 PM FISHER MUSSEL) [facility] U Osmolality 329 50 - 1,400 [facility] mOsm/kg H2O [facility] Comment: Urinary osmolality may vary widely, depe nding on the state of hydration. Random urine osmolality can range from 50 to 1400 mOsm/kg H2O depending on fluid intake. In individuals on average fluid intake, urine osmolality is typically 300-900 mO sm/kg H2O. Units of measure: mOsm per Kg of water. Specimen Anatomical Collection Method Collection Time Receive d Time (Source) Location / / Volume Laterality Urine 10/31/2022 12:00 10/31/2022 PM FISHER MUSSEL 12:51 PM FISHER MUSSEL Nicol Cook NP URINE ORDERABLES Performing Organization Address City/[facility]/ZIP [facility] Phon e Number [facility] Unless otherwise noted, [address] all lab tests performed by: Division of Pathology and Laboratory Medicine [address] [place] [address] Research Protocol [id number] (10/31/2022 12:44 AM FISHER MUSSEL) athologist Vericept Research Prot [id number] [facility] Specimen Anatomical Collection Method Collection Time Receive d Time (Source) Location / / Volume Laterality Blood 10/31/2022 12:44 10/31/2022 1:02 AM FISHER MUSSEL AM FISHER MUSSEL Nicol Cook NP RESEARCH LAB Z CODES Performing Organization Address City/[facility] Phon e Number [facility] Unless otherwise noted, [address] all lab tests performed by: Division of Pathology and Laboratory Medicine [address] [place] [address] (ABNORMAL) Hemoglobin A1c (10/31/2022 12:44 AM FISHER MUSSEL) P athologist Signature A1C 13.8 (H) 4.3 - 5.6 % [facility] Comment: HbA1c values >=6.5% are diagnostic of di abetes mellitus. Diagnosis should be confirmed by repeat testing. Therapeutic Action suggested: >8.0% HbA1 c; Goal of therapy: <7.0% HbA1c Specimen Anatomical Collection Method Collection Time Receive d Time (Source) Location / / Volume Laterality Blood 10/31/2022 12:44 10/31/2022 AM FISHER MUSSEL 12:48 PM FISHER MUSSEL Sheela LUO LAB BLOOD ORDERABLES Performing Organization Address City/[facility]/ZIP Code Phon e Number [facility] Unless otherwise noted, [address] all lab tests performed by: Division of Pathology and Laboratory Medicine [address] [place] [address] CG [id number] FISH Interpretation and Report (10/30/2022 9:57 AM FISHER MUSSEL) Specimen (Source) Anatomical Collection Method Collection Time Re ceived Time Location / / Volume Laterality 10/30/2022 9:57 AM FISHER MUSSEL Narrative This result has an attachment that is no t available. Maame Castañeda NP [facility] HP CYTOGENETICS (HP CG) Adaptive cloneSEQ-Send out, Bone Marrow (10/30/2022 9:57 AM FISHER MUSSEL) Patholo gist Method Time Signature Adaptive Not Shipped [facility] clonoSEQ [facility] Comment: Specimen for clonoSEQ testing was obtain ed, processed and sent out to the [employer] [facility]. Refer to separate [facility] for results. Testing Indication B-Cell clonality (ID) [facility] Specimen Anatomical Collection Method Collection Time Receive d Time (Source) Location / / Volume Laterality Bone Marrow 10/30/2022 9:57 AM 9:52 FISHER MUSSEL PM FISHER MUSSEL Maame Castañeda NP LAB BLOOD ORDERABLES Performing Organization Address City/[facility]/ZIP [facility] Phon e Number [facility] Unless otherwise noted, [address] all lab tests performed by: Division of Pathology and Laboratory Medicine Darek Rivers MD Ph-Like ALL Fusion Multiplex Panel Collection, Nonblood - Send Outs - 4 mL in a separate purple top tube to MD lab (10/30/2022 9:57 AM FISHER MUSSEL) athologist Signature Molecular Yes [facility] (Received) Specimen Anatomical Collection Method Collection Time Receive d Time (Source) Location / / Volume Laterality Bone Marrow 10/30/2022 9:57 AM 2 4:20 FISHER MUSSEL PM FISHER MUSSEL Narrative [facility] - 2 6:39 PM FISHER MUSSEL Send Outs - 4 mL in a separate purple to p tube to MDL lab Maame HERRING MD NONBLMELONY COLLECTIO NS Performing Organization Address City/State/ZIP Code Phon e Number [facility] Unless otherwise noted, [address] all lab tests performed by: Division of Pathology and Laboratory Medicine Darek Rivers MD NRAS Mutation Analysis Collection, Nonblood (10/30/2022 9:57 AM FISHER MUSSEL) athologist Signature Molecular Yes [facility] (Received) Specimen Anatomical Collection Method Collection Time Receive d Time (Source) Location / / Volume Laterality Bone Marrow 10/30/2022 9:57 AM 2 4:20 FISHER MUSSEL PM FISHER MUSSEL Maame HERRING MD NONBLOOD COLLECTEILEEN NS Performing Organization Address City/State/ZIP Code Phon e Number [facility] Unless otherwise noted, [address] all lab tests performed by: Division of Pathology and Laboratory Medicine Darek Rivers MD NOTCH1 Exons 26, 27, 34 Collection, Nonblood (10/30/2022 9:57 AM FISHER MUSSEL) athologist Signature Molecular Yes [facility] (Received) Specimen Anatomical Collection Method Collection Time Receive d Time (Source) Location / / Volume Laterality Bone Marrow 10/30/2022 9:57 AM 2 4:20 FISHER MUSSEL PM FISHER MUSSEL Maame HERRING MD NONBLMELONY COLLECTIO NS Performing Organization Address City/State/ZIP Code Phon e Number [facility] Unless otherwise noted, [address] all lab tests performed by: Division of Pathology and Laboratory Medicine Darek Rivers MD KRAS Mutation Analysis Collection, Nonblood (10/30/2022 9:57 AM FISHER MUSSEL) athologist Signature Molecular Yes [facility] (Received) Specimen Anatomical Collection Method Collection Time Receive d Time (Source) Location / / Volume Laterality Bone Marrow 10/30/2022 9:57 AM 2 4:20 FISHER MUSSEL PM FISHER MUSSEL Otsheri HERRING MD NONBLMELONY HESS NS Performing Organization Address City/State/ZIP Code Phon e Number [facility] Unless otherwise noted, [address] all lab tests performed by: Division of Pathology and Laboratory Medicine Darek Rivers MD JAK2 Mutation Analysis Collection, Nonblood (10/30/2022 9:57 AM FISHER MUSSEL) athologist Signature Molecular Yes [facility] (Received) Specimen Anatomical Collection Method Collection Time Receive d Time (Source) Location / / Volume Laterality Bone Marrow 10/30/2022 9:57 AM 2 4:20 FISHER MUSSEL PM FISHER MUSSEL Otitolmerlyn HERRING MD NONBLOOD COLLECTEILEEN NS Performing Organization Address City/State/ZIP Code Phon e Number [facility] Unless otherwise noted, [address] all lab tests performed by: Division of Pathology and Laboratory Medicine Darek Rivers MD [id number] Mutation Analysis Collection, Nonblood (10/30/2022 9:57 AM FISHER MUSSEL) athologist Signature Molecular Yes [facility] (Received) Specimen Anatomical Collection Method Collection Time Receive d Time (Source) Location / / Volume Laterality Bone Marrow 10/30/2022 9:57 AM 2 4:20 FISHER MUSSEL PM FISHER MUSSEL Otitolmerlyn HERRING MD NONBLOOD COLLECTEILEEN NS Performing Organization Address City/State/ZIP Code Phon e Number [facility] Unless otherwise noted, [address] all lab tests performed by: Division of Pathology and Laboratory Medicine Darek Rivers MD Acute Leukemia Translocation Screen - t(4;11),t(1;19),t(6;9),t(12;21),t(9;22),t(15;17),t(8;21),inv(16)/t(16;16) Collection, Nonblood (10/30/2022 9:57 AM FISHER MUSSEL) athologist Signature Molecular Yes [facility] (Received) Specimen Anatomical Collection Method Collection Time Receive d Time (Source) Location / / Volume Laterality Bone Marrow 10/30/2022 9:57 AM 2 4:20 FISHER MUSSEL PM FISHER MUSSEL Maame HERRING MD NONBLOOD COLLECTIO NS Performing Organization Address City/[facility]/ZIP [facility] Phon e Number [facility] Unless otherwise noted, [address] all lab tests performed by: Division of Pathology and Laboratory [facility] TP53 CEP17 FISH Collection, Nonblood (10/30/2022 9:57 AM FISHER MUSSEL) [facility] Signature Cytogenetics Yes [facility] ([facility]) [facility] Specimen Anatomical Collection Method Collection Time Receive d Time (Source) Location / / Volume Laterality Bone Marrow 10/30/2022 9:57 AM 2 3:43 FISHER MUSSEL PM FISHER MUSSEL [place] G Garry CARR MDA HP CG NONBLOOD COLLECTIO NS Performing Organization Address City/State/ZIP Code Phon e Number [facility] Unless otherwise noted, [address] all lab tests performed by: Division of Pathology and Laboratory Medicine [facility] Vito Rivers PDGFRB FISH Collection, Nonblood (10/30/2022 9:57 AM FISHER MUSSEL) athologist [facility] Cytogenetics Yes [facility] ([facility]) [facility] Specimen Anatomical Collection Method Collection Time Receive d Time (Source) Location / / Volume Laterality Bone Marrow 10/30/2022 9:57 AM 2 3:43 FISHER MUSSEL PM FISHER MUSSEL [place] G Castañeda WATER REUSE PROGRAM MANAGER MDA HP CG NONBLOOD COLLECTIO NS Performing Organization Address City/State/ZIP Code Phon e Number [facility] Unless otherwise noted, [address] all lab tests performed by: Division of Pathology and Laboratory Medicine [address] [place] [address] KMT2A(MLL) FISH Collection, Nonblood (10/30/2022 9:57 AM FISHER MUSSEL) athologist Signature Cytogenetics Yes [place] (Received) [facility] Specimen Anatomical Collection Method Collection Time Receive d Time (Source) Location / / Volume Laterality Bone Marrow 10/30/2022 9:57 AM 2 3:43 FISHER MUSSEL PM FISHER MUSSEL [place] G Castañeda WATER REUSE PROGRAM MANAGER MDA HP CG NONBLOOD COLLECTIO NS Performing Organization Address City/[facility]/ZIP Code Phon e Number [facility] Unless otherwise noted, [address] all lab tests performed by: Division of Pathology and Laboratory Medicine [address] [place] [address] JAK2 FISH Collection, Nonblood (10/30/2022 9:57 AM FISHER MUSSEL) athologist Signature Cytogenetics Yes [place] ([facility]) [facility] Specimen Anatomical Collection Method Collection Time Receive d Time (Source) Location / / Volume Laterality Bone Marrow 10/30/2022 9:57 AM 2 3:43 FISHER MUSSEL PM FISHER MUSSEL [place] G Castañeda WATER REUSE PROGRAM MANAGER MDA HP CG NONBLOOD COLLECTIO NS Performing Organization Address City/[facility]/ZIP Code Phon e Number [facility] Unless otherwise noted, [address] all lab tests performed by: Division of Pathology and Laboratory Medicine [address] [place] [address] EPOR FISH Collection, Nonblood (10/30/2022 9:57 AM FISHER MUSSEL) athologist Signature Cytogenetics Yes [place] ([facility]) [facility] Specimen Anatomical Collection Method Collection Time Receive d Time (Source) Location / / Volume Laterality Bone Marrow 10/30/2022 9:57 AM 2 FISHER MUSSEL 3:43 PM FISHER MUSSEL [place] G Castañeda WATER REUSE PROGRAM MANAGER MDA HP CG NONBLOOD COLLECTIO NS Performing Organization Address City/State/ZIP Code Phon e Number [facility] Unless otherwise noted, [address] all lab tests performed by: Division of Pathology and Laboratory Medicine Darek CALVIN CRLF2 FISH Collection, Nonblood (10/30/2022 9:57 AM FISHER MUSSEL) athologist Signature Cytogenetics Yes [facility] (Received) [facility] Specimen Anatomical Collection Method Collection Time Receive d Time (Source) Location / / Volume Laterality Bone Marrow 10/30/2022 9:57 AM 2 3:43 FISHER MUSSEL PM FISHER MUSSEL Otitolmerlyn Castañeda WATER REUSE PROGRAM MANAGER MDA HP CG NONBLOOD COLLECTIO NS Performing Organization Address City/State/ZIP Code Phon e Number [facility] Unless otherwise noted, [address] all lab tests performed by: Division of Pathology and Laboratory Medicine Darek Rivers ABL2 FISH Collection, Nonblood (10/30/2022 9:57 AM FISHER MUSSEL) [facility] Signature Cytogenetics Yes [facility] (Received) [facility] Specimen Anatomical Collection Method Collection Time Receive d Time (Source) Location / / Volume Laterality Bone Marrow 10/30/2022 9:57 AM 2 3:43 FISHER MUSSEL PM FISHER MUSSEL Otitolmerlyn Castañeda NP MDA HP CG NONBLOOD COLLECTIO NS Performing Organization Address City/[facility]/ZIP Code Phon e Number [facility] Unless otherwise noted, [address] all lab tests performed by: Division of Pathology and Laboratory Medicine Darek Rivers MD t(9;22) BCR/ABL1 Quantitative PCR Collection, Nonblood (10/30/2022 9:57 AM FISHER MUSSEL) [facility] Molecular Yes [facility] (Received) Specimen Anatomical Collection Method Collection Time Receive d Time (Source) Location / / Volume Laterality Bone Marrow 10/30/2022 9:57 AM 2 4:20 FISHER MUSSEL PM FISHER MUSSEL Maame HERRING MD NONBLOOD COLLECTIO NS Performing Organization Address City/State/ZIP Code Phon e Number [facility] Unless otherwise noted, [address] all lab tests performed by: Division of Pathology and Laboratory Medicine [address] CALVIN BCR/ABL1 t(9;22) FISH Collection, Nonblood (10/30/2022 9:57 AM FISHER MUSSEL) P athologist Signature Cytogenetics Yes [place] (Received) [facility] Specimen Anatomical Collection Method Collection Time Receive d Time (Source) Location / / Volume Laterality Bone Marrow 10/30/2022 9:57 AM 2 3:43 FISHER MUSSEL PM FISHER MUSSEL Maame Castañeda NP MDA HP CG NONBLOOD COLLECTIO NS Performing Organization Address City/State/ZIP Code Phon e Number [facility] Unless otherwise noted, [place] [address] [place] all lab tests performed by: Division of Pathology and Laboratory Medicine [address] V[address] Rivers MD EndLeukemia Mutation Panel V1 Interpretation and Report (10/30/2022 9:57 AM FISHER MUSSEL) Specimen (Source) Anatomical Collection Method Collection Time Re ceived Time Location / / Volume Laterality 10/30/2022 9:57 AM FISHER MUSSEL Narrative This result has an attachment that is no t available. Maame Castañeda NP, MDA HP MOLECULAR DIAGNOSTICS (NEVAEH COVARRUBIAS) Preliminary Mutation Analysis Panel Interpretation and Report (10/30/2022 9:57 AM FISHER MUSSEL) Specimen Anatomical Collection Method Collection Time Receive d Time (Source) Location / / Volume Laterality 10/30/2022 9:57 AM 2 4:20 FISHER MUSSEL PM FISHER MUSSEL Narrative This result has an attachment that is no t available. Maame Castañeda NP, MDA HP MOLECULAR DIAGNOSTICS (NEVAEH COVARRUBIAS) CG [id number]/RUNX1 t(8;21) FISH Interpretation and Report (10/30/2022 9:57 AM FISHER MUSSEL) Specimen (Source) Anatomical Collection Method Collection Time Re ceived Time Location / / Volume Laterality 10/30/2022 9:57 AM FISHER MUSSEL Narrative This result has an attachment that is no t available. Maame Castañeda NP, MDA HP CYTOGENETICS (HP NIKUNJ) CG CBFB inv(16)/t(16;16) FISH Interpretation and Report (10/30/2022 9:57 AM FISHER MUSSEL) Specimen (Source) Anatomical Collection Method Collection Time Re ceived Time Location / / Volume Laterality 10/30/2022 9:57 AM FISHER MUSSEL Narrative This result has an attachment that is no t available. Maame Castañeda NP [facility] CYTOGENETICS ([facility]) CG KMT2A(MLL) FISH Interpretation and Report (10/30/2022 9:57 AM FISHER MUSSEL) Specimen (Source) Anatomical Collection Method Collection Time Re ceived Time Location / / Volume Laterality 10/30/2022 9:57 AM FISHER MUSSEL Narrative This result has an attachment that is no t available. Maame Castañeda NP [facility] CYTOGENETICS ([facility]) CG TP53 CEP17 FISH Interpretation and Report (10/30/2022 9:57 AM FISHER MUSSEL) Specimen (Source) Anatomical Collection Method Collection Time Re ceived Time Location / / Volume Laterality 10/30/2022 9:57 AM FISHER MUSSEL Narrative This result has an attachment that is no t available. Maame Castañeda NP [facility] CYTOGENETICS ([facility]) FC Acute Leukemia Screen Interpretation and Report (10/30/2022 9:57 AM FISHER MUSSEL) Specimen Anatomical Collection Method Collection Time Receive d Time (Source) Location / / Volume Laterality 10/30/2022 9:57 AM 3:21 FISHER MUSSEL PM FISHER MUSSEL Narrative This result has an attachment that is no t available. Maame Castañeda NP [facility] FLOW CYTOMETRY ( FC ) FLT3 Mutation Analysis Interpretation and Report (10/30/2022 9:57 AM FISHER MUSSEL) Specimen (Source) Anatomical Collection Method Collection Time Re ceived Time Location / / Volume Laterality 10/30/2022 9:57 AM FISHER MUSSEL Narrative This result has an attachment that is no t available. Maame Castañeda NP [facility] MOLECULAR DIAGNOSTICS ( MD) Acute Leukemia Translocation Screen - t(4;11),t(1;19),t(6;9),t(12;21),t(9;22),t(15;17),t(8;21),inv(16)/t(16;16) Interpretation and Report (10/30/2022 9:57 AM FISHER MUSSEL) Specimen (Source) Anatomical Collection Method Collection Time Re ceived Time Location / / Volume Laterality 10/30/2022 9:57 AM FISHER MUSSEL Narrative This result has an attachment that is no t available. Maame Castañeda NP [facility] MOLECULAR DIAGNOSTICS ([place] [facility]OVARRUBI[facility]) CT DIAGNOSTIC BONE MARROW BIOPSIES & ASPIRATIONS (10/30/2022 9:39 AM FISHER MUSSEL) Specimen (Source) Anatomical Location Collection Method / Collectio n Time Received Time / Laterality Volume Bone Marrow Narrative [facility] - 9:39 AM FISHER MUSSEL Louie Sunshine NP 10/30/2022 10:05 AM Procedure: Bone marrow aspiration/biopsy Date/Time: 10/30/2022 9:39 AM Provider Information: Performed by: Louie Sunshine NP Authorized by: Maame Castañeda NP Underground Electrician present: yes Underground Electrician: Jey Garcia, RT paraprofessional interpreter used?: spanish medical interpreter n ot needed Patient Diagnosis: Pre-procedure diagnosis: New acute leuke wang Post-procedure diagnosis: unchanged Indication: Indication: evaluation of disease status and diagnosis/evaluation of hematopoietic dysfunction Anesthesia: Anesthesia: local infiltration Patient anesthetized by: advanced practi ce provider Local anesthetic: lidocaine 1% without e pinephrine Anesthetic total (ml): 20 Sedation: Patient sedated?: patient not sedated Aspirate Site(s): Laterality: left Site location: posterior iliac crest Instrument(s) used: [place] needle Instruments placed by: advanced practice provider Biopsy Site(s): Laterality: left Site location: posterior iliac crest Instrument(s) used: [place] needle Instruments placed by: advanced practice provider Dressing: Dressing: compression bandage Post-Procedure Patient Assessment: Patient tolerance: well Estimated blood loss: minimal Complications/Observations: no complicat ions Pre-procedure pain scale: 0/10 Post-procedure pain scale: 0/10 Discharge/Disposition: Discharge instructions: verbal Patient discharged to: return to [facility] bed Disposition mode: other Other disposition mode: hospital bed Sample Disposition: Testing performed: flow cytometry, molec ular, cytogenetics and pathology Research samples(s): no Aspirate volume obtained (mL) - left: 25 Visual assessment for aspirate specimen adequacy - left: few particles Visual assessment for biopsy specimen ad equacy (cm) - left: 1.1 Biopsy specimen integrity - left: whole Comments: Perform time-out with "Tipp24o l record" using patient's Name, MRN, and verbal verification with e patient. Review pertinent history of platelet count, coagulation, and allergies to lidocaine or tape and anticoagulation medication history. Confirmed correct patient, correct procedure and correct side. Obtain informed consent. Platelet count Date Value Ref Range Status 10/30/2022 5 8 (L) 140 - 440 K/uL Final Pt tolerated procedure well and specimen s collected per orders. Compression bandage on and pressure appl ied for 3 minutes. No signs of bleeding. Post-procedure care instructio n given. Patient verbalized understanding of keeping bandage clean a nd dry for 48 hours. Patients was encouraged to do some light walking afte r the procedure to help reduce soreness to the procedure site, and repo rt any bleeding, infection or other complications to clinical team or go to EC for emergency. Clonoseq sample collected Maame Castañeda NP PROCEDURE/MINOR SURGICAL ORD ERABLES Performing Organization Address City/State/ZIP Code Phon e Number [facility] Unless otherwise noted, [address] all lab tests performed by: Division of Pathology and Laboratory Medicine [address] [facility] Echocardiogram 2D Complete with Contrast (10/30/2022 9:27 AM FISHER MUSSEL) Specimen (Source) Anatomical Collection Method Collection Time Re ceived Time Location / / Volume Laterality 10/30/2022 8:20 AM FISHER MUSSEL Narrative [facility] - 10/30/2022 11:02 AM FISHER MUSSEL Echocardiographic Report Interpretation Summary A complete two-dimensional transthoracic echocardiogram was performed (2D, M- mode, Spectral and color Doppler). Micro-Bubbles injection performed because of poor endocardial resolution. There is no comparison study available. Normal left ventricular size and systoli c function. Using an ultrasound enhancing agent and the Biplane Method of Disks, the LVEF measures 70% The right ventricle is normal in size an d function. Right ventricular systolic pressure is n ormal. There is no pericardial effusion. Left Ventricle: Normal left ventricular size and systoli c function. There is normal left ventricular wall thickness. Using an ultrasound enhancing agent and the Biplane Method of Disks, the LVEF measures 70%. I WMSI = 1.00 % Normal = 1 00 X - Cannot 1 - Normal 2 - 3 - Akinetic 4 - Dyskinetic Interpret Hyp okinetic 5 - Aneurysmal 3D imaginD volumes were not performed in this [facility]. Cardiac Mechanics/Speckle Tracking Imagi ng: Speckle tracking imaging was not perform ed in this study. (GE Study). Diastology: Impaired LV relaxation pattern as expect ed for age. Right Ventricle: The right ventricle is normal in size an d function. Normal RV systolic function using TAPSE criteria. Atria: Atria are normal in size. Mitral Valve: Mild thickening changes are noted. Tricuspid Valve: The tricuspid valve is not well visualiz ed, but is grossly normal. There is trace tricuspid regurgitation. Estimated RVSP is 30-35mmHg. Right ventricular systolic pressure is normal. Aortic Valve: The aortic valve is trileaflet. The aort ic valve opens well. Pulmonic Valve: The pulmonic valve is not well visualize d. Great Vessels: The aortic root is normal size. IVC is s mall, consistent with intravascular depletion. Pericardium/Pleural: There is no pericardial effusion. An ech o lucent space is noted consistent with prominent pericardial fat pad. Preliminary Reviewer Preliminary Interpretation: Keiko Is vlad Mary MD. MMode/2D Measurements IVSd: 0.91 cm LVIDd: 5.7 cm LVIDs: 3.7 cm LVPWd: 0.97 cm FS: 35.2 % Ao root diam: 3.7 cm Ao root area: 10.6 cm2 LA dimension: 4.8 cm LVOT diam: 2.2 cm EDV(MOD-A4C): 142.2 ml ESV(MOD-A4C): 47.7 ml LVOT area: 3.9 cm2 EF(MOD-A4C): 66.4 % EDV(MOD-A2C): 119.0 ml ESV(MOD-A2C): 39.6 ml EDV(MOD-bp): 142.9 ml EF(MOD-A2C): 66.7 % ESV(MOD-bp): 43.6 ml EF(MOD-bp): 69.5 % LAV(MOD-A2C): 49.9 ml EDV (MOD-bp) Index: 69.2 ml/m2 LAV(MOD-A4C): 48.5 ml LAV(MOD-bp): 51.7 ml LAV(MOD-bp) Indexed: 25.0 ml/m2 ESV (MOD-bp) Index: 21.1 ml/m2 RWT: 0.34 cm TAPSE (>1.6): 1.8 cm Doppler Measurements MV E max santiago: 91.8 cm/sec MV V2 max: 112.4 cm/sec MV A max santiago: 97.9 cm/sec MV max P.0 mmHg MV E/A: 0.94 MV V2 mean: 65.5 cm/sec MV mean P.0 mmHg MV V2 VTI: 32.7 cm MVA(VTI): 3.1 cm2 MV dec time: 0.21 sec Ao V2 max: 186.4 cm/sec Ao max P.9 mmHg Ao V2 mean: 112.8 cm/sec Ao mean P.0 mmHg Ao V2 VTI: 32.4 cm MAY(I,D): 3.1 cm2 MAY(V,D): 2.4 cm2 LV V1 max P.0 mmHg SV(LVOT): 100.0 ml LV V1 mean P.5 mmHg LV V1 max: 112.3 cm/sec LV V1 mean: 74.6 cm/sec LV V1 VTI: 25.5 cm PA V2 max: 152.8 cm/sec Med Peak E' Santiago: 7.5 cm/sec PA max P.3 mmHg PA V2 mean: 91.9 cm/sec PA mean P.0 mmHg PA V2 VTI: 26.4 cm Lat Peak E' Santiago: 10.1 cm/sec TR max santiago: 282.3 cm/sec TR max P.9 mmHg RVSP(TR): 34.9 mmHg RAP systole: 3.0 mmHg MAY Index (I,D): 1.5 MAY Index (V,D): 1.1 Dimensionless Index: 0.60 E/e' (avg): 10.5 E/e' (lat): 9.1 E/e' (sept): 12.3 Procedure Note Chava Guadarrama MD - 10/30/2022 Echocardiographic Report Interpretation Summary A complete two-dimensional transthoracic echocardiogram was performed (2D, M- mode, Spectral and color Doppler). Micro-Bubbles injection performed because of poor endocardial resolution. There is no comparison study available. Normal left ventricular size and systoli c function. Using an ultrasound enhancing agent and the Biplane Method of Disks, the LVEF measures 70% The right ventricle is normal in size an d function. Right ventricular systolic pressure is n ormal. There is no pericardial effusion. Left Ventricle: Normal left ventricular size and systoli c function. There is normal left ventricular wall thickness. Using an ultrasound enhancing agent and the Biplane Method of Disks, the LVEF measures 70%. I WMSI = 1.00 % Normal = 100 X - Cannot 1 - Normal 2 - 3 - Akinetic 4 - Dyskinetic Interpret Hypokinetic 5 - Aneurysmal 3D imaginD volumes were not performed in this st udy. Cardiac Mechanics/Speckle Tracking Imagi ng: Speckle tracking imaging was not perform ed in this study. (GE Study). Diastology: Impaired LV relaxation pattern as expect ed for age. Right Ventricle: The right ventricle is normal in size an d function. Normal RV systolic function using TAPSE criteria. Atria: Atria are normal in size. Mitral Valve: Mild thickening changes are noted. Tricuspid Valve: The tricuspid valve is not well visualiz ed, but is grossly normal. There is trace tricuspid regurgitation. Estimated RVSP is 30-35mmHg. Right ventricular systolic pressure is normal. Aortic Valve: The aortic valve is trileaflet. The aort ic valve opens well. Pulmonic Valve: The pulmonic valve is not well visualize d. Great Vessels: The aortic root is normal size. IVC is s mall, consistent with intravascular depletion. Pericardium/Pleural: There is no pericardial effusion. An ech o lucent space is noted consistent with prominent pericardial fat pad. Preliminary Reviewer Preliminary Interpretation: Keiko Mary MD. MMode/2D Measurements IVSd: 0.91 cm LVIDd: 5.7 cm LVIDs: 3.7 cm LVPWd: 0.97 cm FS: 35.2 % Ao root diam: 3.7 cm Ao root area: 10.6 cm2 LA dimension: 4.8 cm LVOT diam: 2.2 cm EDV(MOD-A4C): 142. 2 ml ESV(MOD-A4C): 47.7 ml LVOT area: 3.9 cm2 EF(MOD-A4C): 66. 4 % EDV(MOD-A2C): 119.0 ml ESV(MOD-A2C): 39.6 ml EDV(MOD-bp): 142.9 ml EF(MOD-A2C): 66.7 % ESV(MOD-bp): 43. 6 ml EF(MOD-bp): 69.5 % LAV(MOD-A2C): 49.9 ml EDV (MOD-bp) In dex: 69.2 ml/m2 LAV(MOD-A4C): 48.5 ml LAV(MOD-bp): 51.7 ml LAV(MOD-bp) Indexed: 25.0 ml/m2 ESV (MOD-bp) Index: 21.1 ml/m2 RWT: 0.34 cm TAPSE (>1.6): 1.8 cm Doppler Measurements MV E max santiago: 91.8 cm/sec MV V2 max: 112.4 cm/sec MV A max santiago: 97.9 cm/sec MV max PG : 5.0 mmHg MV E/A: 0.94 MV V2 mean: 65.5 cm/sec MV mean P.0 mmHg MV V2 VTI: 32.7 cm MVA(VTI): 3.1 cm2 MV dec time: 0.21 sec Ao V2 max: 186 .4 cm/sec Ao max P.9 mmHg Ao V2 mean: 112.8 cm/sec Ao mean P.0 mmHg Ao V2 VTI: 32.4 cm MAY(I,D): 3.1 cm2 MAY(V,D): 2.4 cm2 LV V1 max P.0 mmHg SV(LVOT): 100 .0 ml LV V1 mean P.5 mmHg LV V1 max: 112.3 cm/sec LV V1 mean: 74.6 cm/sec LV V1 VTI: 25.5 cm PA V2 max: 152.8 cm/sec Med Peak E' Santiago: 7.5 cm/sec PA max P.3 mmHg PA V2 mean: 91.9 cm/sec PA mean P.0 mmHg PA V2 VTI: 26.4 cm Lat Peak E' Santiago: 10.1 cm/sec TR max v el: 282.3 cm/sec TR max P.9 mmHg RVSP(TR): 34.9 mmHg RAP systole: 3.0 mmHg MAY Index (I,D ): 1.5 MAY Index (V,D): 1.1 Dimensionless Index: 0.60 E/e' (avg): 10.5 E/e' (lat): 9.1 E/e' (sept): 12.3 Suzanne Francis NP CV ECHO ORDERABLES Performing Organization Address City/State/ZIP Code Phon e Number [facility] PN Collection, Blood (10/30/2022 1:14 AM FISHER MUSSEL) athologist Signature Flow Cytometry Yes [facility] (Received) [facility] Specimen Anatomical Collection Method Collection Time Receive d Time (Source) Location / / Volume Laterality Blood 10/30/2022 1:14 AM 2 8:03 FISHER MUSSEL AM FISHER MUSSEL Suzanne Francis NP [facility] BLOOD COLLECTIONS Performing Organization Address City/State/ZIP Code Phon e Number [facility] Unless otherwise noted, [place] [address] [place] all lab tests performed by: Division of Pathology and Laboratory Medicine [facility] Vito Rivers [facility] Interpretation and Report (10/30/2022 1:14 AM FISHER MUSSEL) Specimen Anatomical Collection Method Collection Time Receive d Time (Source) Location / / Volume Laterality 10/30/2022 1:14 AM 2 8:03 FISHER MUSSEL AM FISHER MUSSEL Narrative This result has an attachment that is no t available. Suzanne Francis NP, [facility] FLOW CYTOMETRY (HP FC ) Tip Verification Central Vascular Access Device (10/29/2022 9:09 PM FISHER MUSSEL) Narrative Angeles Duarte APN - 10/29/2022 9:09 P M FISHER MUSSEL Angeles Duarte APN 10/29/2022 9:12 PM Central Vascular Access Device Tip Verif ication Performed by: Angeles Duarte APN Authorized by: Angeles Duarte APN CVAD Properties Date device placed: 10/29/2022 Placed by: Mike Crowder RN Device placement location: [facility] Catheter Type: PICC Catheter lumen: Double lumen Vein location: Basilic Laterality: Right Tip Verification Properties Diagnostic image available: Chest xray Written diagnostic report available: Yes Tip location per report: Superior vena cava Name of RN notified for LDA documentatio n of verification: LUCILA Desir Tip in good position and cleared for inf usion Angeles Duarte APN IV THERAPY ORDERABLES XR Chest 2 Views (10/29/2022 8:30 PM FISHER MUSSEL) Anatomical Region Laterality Modality Chest Digital Radiography Specimen (Source) Anatomical Collection Method Collection Time Re ceived Time Location / / Volume Laterality 10/29/2022 9:03 PM FISHER MUSSEL Impressions 10/29/2022 9:05 PM FISHER MUSSEL 1. Central venous catheter appears to be in satisfactory position without visible complication. 2. Minimal linear atelectasis or scarr ing in the left lung. Narrative 10/29/2022 9:05 PM FISHER MUSSEL FULL RESULT: Examination: XR CHEST 2 VW, 10/29/2022 8 :30 PM Clinical History: Acute leukemia Indication: Baseline Chest X-Ray Comparison: 10/29/2022 at 1149 hours Technique: Posteroanterior, lateral and dual-energy radiographs of the chest. Findings: Right longline catheter placed with its tip projected about 4 to 5 cm below the azygos arch probably in the distal superior vena cava. Minimal strandy opacities in the left lung. No other consolidation. Heart size is normal. No pleural effusi on or pneumothorax. Right adrenal calcifications as seen on CT. Procedure Note Shen Oleary MD - 10/29/2022Formatt ing of this note might be different from the original. FULL RESULT: Examination: XR CHEST 2 VW, 10/29/2022 8 :30 PM Clinical History: Acute leukemia Indication: Baseline Chest X-Ray Comparison: 10/29/2022 at 1149 hours Technique: Posteroanterior, lateral and dual-energy radiographs of the chest. Findings: Right longline catheter placed with its tip projected about 4 to 5 cm below the azygos arch probably in the distal superior vena cava. Minimal strandy opacities in the left lung. No other consolidation. Heart size is normal. No pleural effusion or pneumotho rax. Right adrenal calcifications as seen on CT. IMPRESSION: 1. Central venous catheter appears to be in satisfactory position without visible complication. 2. Minimal linear atelectasis or scarrin g in the left lung. Lorne Youssef MD IMG DIAGNOSTIC IMAGING ORDER ANABELA Insert Vascular Access Device: PICC (10/29/2022 7:50 PM FISHER MUSSEL) Narrative Mike Crowder RN - 10/29/2022 7:50 PM FISHER MUSSEL Mike Crowder RN 10/29/2022 7:53 PM Insertion of 4 Fr double lumen right bas ilic PICC Date/Time: 10/29/2022 7:50 PM Proceduralist Type: RN Proceduralist: Mike Crowder RN Ordered By: Suzanne Francis NP Procedure Location: Inpatient Underground Electrician present: yes (Ezra Vaca Butch Johnston) Pre- Procedure diagnosis: Acute Leukemia Post-Procedure diagnosis: unchanged Indication for Procedure: Vascular Acces s Pre-Procedure Evaluation Patient examined pre-procedure and asses sment (including allergies, labs, imaging, history and physical exam) perf ormed. Informed consent obtained prior to procedure, the risks, benefits, and alternative discussed with patient/designated sales representative graphic art. Pre-p rocedure the patient was alert. Time out: universal protocol time out pe rformed and documented. Anesthesia Anesthesia: local infiltration Local anesthetic: lidocaine 1% without e pinephrine Anesthetic total (ml): 5 Sedation Patient sedated?: no Procedure Site preparation: Hand hygiene performed prior to insertio n by all persons performing/assisting with procedure. I nsertion site prepped and cleaned with asceptic technique (Sterile devices , and equipment used. Doors closed and traffic minimized during procedure). Insertion site prepped with chlorhexidine gluconate (Standard). Sk in prep agent completely dried prior to procedure according to manufact urer guidelines. Maximum sterile barriers were used- sterile gloves, ster ile gown, cap, mask and head to toe sterile cover. PICC catheter inser tion tray used. The patient was placed in a Flat/Supine and Head Turned to Sideposition. The insertion site was anesthetized with lidocaine 1% without epinephrine via subcutaneous needle . A high level disinfected ultrasound probe with sterile cover was used for guidance . The ultrasound demonstrated compressibility of theright basilic vein . Venous access obtained using the micropuncture needle. A permanent susan rd of the ultrasound-guided vessel puncture image has been stored. Drip test performed to confirm venous pl acement. Dilator inserted gently over guidewire. A new 4 Fr double lumen power rated 0 cm external right basilic PICC was inserted successfully with good flow and blood return in all lumens. Catheter Internal Length (cm): 39 Catheter Trim Length (cm): 39 Number of insertion attempt(s) was 1. Guidewire and dilator removed, examined, and found to be intact. Estimated blood loss was minimal. Specimen Removed: No. Post Procedure Each lumen evacuated of air and flushed with sterile saline. Catheter sutured/secured in place, the s ite cleaned and sterile transparent dressing applied with biopat ch and the dressing labeled with date, time, and initial. Catheter re-ass essed and blood return through all lumens. Tip Verification: The right basilic PICC. Pending catheter tip clearance, see Tip Verification smart note Complications: no immediate complication Patient Condition: patient tolerated the procedure well with no immediate complications, patient does not report a dverse symptoms, patient remained hemodynamically stable throughout the pr ocedure and patient is warm and well perfused Responsiveness: alert, awake and comfort able Patient Disposition: remain in inpatient bed Comments Right Power PICC double lumen inserted v ia Basilic Vein per VAP Procedure. [id number] used with tip tattoo and body artist pointi ng down and good p waves on EKG. Sutured x [address] Good blood return noted from both lumens. CXR pending for tip placement verification. Patient education attached to discharge instructions and patient verba lizes understanding. Suzanne Francis NP IV THERAPY ORDERABLES Tissue/FNA Culture (10/29/2022 7:09 PM FISHER MUSSEL) Component Value Ref Test Analysis Performed At [facility] gist Range Method Time Signature Final Report No growth [facility] Path Review Culture yield may be affecte d by sample quality, prior treatment, and transportation conditions. MARILY HERRERA The results have been reviewed and electronically signed b y Pathologist: CANCER Enzo Segovia MD, PhD #[id number] C ENTER Gram Stain No WBC's seen. AR Report No organisms seen. [facility] Specimen Anatomical Collection Method Collection Time Receive d Time (Source) Location / / Volume Laterality Tissue (Thigh) 10/29/2022 7:09 PM 022 8:22 FISHER MUSSEL PM FISHER MUSSEL Narrative [facility] - 11:38 PM FISHER MUSSEL Right thigh Angy Waite MD MICROBIOLOGY - GENERAL ORDER ANABELA Performing Organization Address City/State/ZIP Code Phon e Number [facility] Unless otherwise noted, [place], [place] [id number] [place] [address] all lab tests performed by: Division of Pathology and Laboratory Medicine [address] [place] [address] Vascular Access Ultrasound- VAP RN Device (10/29/2022 6:36 PM FISHER MUSSEL) Specimen (Source) Anatomical Location Collection Method / Collectio n Time Received Time / Laterality Volume Narrative Systemgenerated, Documentation - 6:36 PM FISHER MUSSEL This procedure requires no interpretatio n from the radiologist. Lorne Youssef MD IMG NON DI ORDERABLES Pathology Biopsy Interpretation (10/29/2022 6:19 PM FISHER MUSSEL) Component Value Ref Test Analysis Performed Pathologis t Range Method Time At Signature Submitted Neoplasm of uncertain 11/03/2022 [facility] Clinical behavior of skin 12:34 PM History [D48.5] FISHER MUSSEL Diagnosis A: Thigh, right, skin punch: 11/03/2022 [facility] Electronically Perivascular and periadnexal lymphohistiocytic infiltr ate admixed with 12:34 PM signed by SCATTERED ATYPICAL MONONUCLE AR CELLS, CONSISTENT WITH FOCAL CUTANEOUS INVOLVEMENT BY PATIENT'S ACUTE MYELOID LEUKEMIA FISHER MUSSEL Efraín See comment. Samuel hudson MD on at 12:34 P M Preliminar y result electronic ally signed by Binta Mayen MD on at 4:15 PM Comment Sections reveal a punch biop sy of skin to include deep reticular dermis showing mild dermal purpura, mild papillary dermal edema, mild epidermal spongiosis and minimal acanthosis. In association with ma 11/03/2022 [facility] jority of the dermal blood v essels, hair follicles and eccrine glands, there is moderately dense lymphohistiocytic infiltrate in association with scattered atypical mononuclear cells, with high nuclear to cytoplasmic ratio and blastic features. 12:34 PM FISHER MUSSEL Special stains (GMS, Gram an d Michael) fail to reveal unequivocal fungal, bacterial and mycobacterial/acid-fast organisms, respectively. Correlation with results of microbiology cultures is recommended, if available. Immunohistochemical studies reveal the lesional cells to be positive for CD33 and MPO, while being negative for CD34, CD3/CD20 (multiplex), CD30, and TCL1. Dual expression of TCF4/CD123 by multiplex imm unohistochemical study. Karlee rity of the background inflammatory infiltrate is composed of mostly T-lymphocytes with rare B cells. The lack of sheets of blasts supports cutaneous involvement by patient's acute myeloid leukemia (not leukemia cutis) in the current biopsy. Clinical-pathologic correlation is necessary. Gross A: 11/03/2022 [facility] Description Thigh, right, : A pale-walker s kin punch biopsy measuring 0.4 cm in diameter and 0.7 cm in depth. The specimen is inked, bisected, entirely submitted in A1. GM 12:34 PM FISHER MUSSEL Cut Off Saw Tender Metal(s) This case was studied and di scussed at the dermatopathology faculty conference. 11/03/2022 [facility] VGP, PPA, WCC 12:34 PM FISHER MUSSEL Biomarker Tumor: A1 11/03/2022 [facility] Block(s) Adequacy: Adequate for immun ohistochemical or in-situ hybridization studies only 12:34 PM Unstained slides: 2 available FISHER MUSSEL Disclaimer "Some tests reported 11/03/2022 [facility] here may have been 12:34 PM developed and FISHER MUSSEL performance characteristics determined by [facility] Pathology and Laboratory Medicine. These tests have not been specifically cleared or approved by the U.S. Food and Drug Administration. If applicable, controls were reviewed and showed appropriate reactivity." Specimen Anatomical Collection Method Collection Time Receive d Time (Source) Location / / Volume Laterality Tissue (Thigh, 10/29/2022 6:19 PM 022 8:18 Right) FISHER MUSSEL AM FISHER MUSSEL Angy Waite MD LAB PATHOLOGY ORDERABLES Performing Organization Address City/State/ZIP Code Phon e Number [place] [id number] (ABNORMAL) Folate Level (10/29/2022 12:51 PM FISHER MUSSEL) P athologist Signature Folate Lvl >34.6 (H) 4.8 - 24.2 [facility] ng/mL [facility] Comment: Hemolyzed specimens with Hemoly sis Index >30.0 (30 mg/dL or visible hemolysis) may cause interference and gi ve falsely high results. Specimen Anatomical Collection Method Collection Time Receive d Time (Source) Location / / Volume Laterality Blood 10/29/2022 12:51 10/29/2022 1:15 PM FISHER MUSSEL PM FISHER MUSSEL Devin Sierra MD LAB BLOOD ORDERABLES Performing Organization Address City/State/ZIP Code Phon e Number [facility] CANCER Unless otherwise noted, [address] all lab tests performed by: Division of Pathology and Laboratory Medicine Darek Rivers Confirm ABORh (10/29/2022 12:09 PM FISHER MUSSEL) P athologist Signature ABORh Confirm. A POS [facility] Specimen Anatomical Collection Method Collection Time Receive d Time (Source) Location / / Volume Laterality Blood 10/29/2022 12:09 10/29/2022 1:02 PM FISHER MUSSEL PM FISHER MUSSEL Devin Sierra MD BLOOD BANK TEST ORDERABLES Performing Organization Address City/[facility]/ZIP Code Phon e Number [facility] CANCER Unless otherwise noted, [address] all lab tests performed by: Division of Pathology and Laboratory Medicine [address] [place] [address] (ABNORMAL) Preliminary Differential (10/29/2022 12:00 PM FISHER MUSSEL) Patholo gist Method Time Signature Preliminary Diff See Note AR Comment (A) [facility] Comment: This differential requires path ologist review. These results are preliminary and all elements are subject to change. Please use caution in evaluating your patient based on preliminary results. Preliminary Neutrophil % 5.0 (L) 42.0 - 66.0 % U [facility] Preliminary Lymphocyte % 12.0 (L) 24.0 - 44.0 % [facility] Preliminary Monocyte % 3.0 2.0 - 7.0 % [facility] Preliminary Metamyelocyte 14.0 (H) <=0.0 % [facility] Preliminary Blasts 66.0 (H) <=0.0 % AR [facility] Specimen Anatomical Collection Method Collection Time Receive d Time (Source) Location / / Volume Laterality Blood 10/29/2022 12:00 10/29/2022 PM FISHER MUSSEL 12:09 PM FISHER MUSSEL Devin Sierra MD LAB BLOOD ORDERABLES Performing Organization Address City/State/ZIP Code Phon e Number [facility] CANCER Unless otherwise noted, [address] all lab tests performed by: Division of Pathology and Laboratory Medicine [address] [place] [address] HIV-1/2 Antigen and Antibodies, Fourth Generation (10/29/2022 12:00 PM FISHER MUSSEL) Analysis Performed At Patho logist Time Signature HIV Ag/Ab, 4TH NON-REACTI NON-REACTI [facility] Comment: HIV-1 antigen and HIV-1/HIV-2 antibodies were not detected. There is no laboratory evidenc e of HIV infection. PLEASE NOTE: This information has been d isclosed to you from records whose confidentiality m ay be protected by state law. If your state requires such protection, then the state law prohibits you from making any further disclosure of the inf ormation without the specific written consent of the person to whom it pertains, or as otherwise per mitted by law. A general authorization for the release of medical or other information is NOT sufficient for this purpose. For additional information please refer to http://education.[employer]/fa q/VVA810 (This link is being provided for informa tional/ educational purposes only.) The performance of this assay has not be en clinically validated in patients less than 2 years old. Lab test performed by: Lab Mnemonic: [facility] [employer] [address] [id number] RODOLFO POWERS MD Specimen Anatomical Collection Method Collection Time Receive d Time (Source) Location / / Volume Laterality Blood 10/29/2022 12:00 10/29/2022 PM FISHER MUSSEL 12:44 PM FISHER MUSSEL Devin Sierra MD LAB BLOOD ORDERABLES Performing Organization Address City/State/ZIP Code Phon e Number [facility] CBC Pathology Review (10/29/2022 12:00 PM FISHER MUSSEL) [facility] gist Method Time Signature CBC Path Left shifted granulocytic ce lls (few promonocytes and myelocytes) with increased blasts. Single Valerie rods are present in rare blasts. Consistent with acute myeloid leukemia. Suggest correlation [facility] [place] with bone marrow, immunophenotype, cytogenetic and SHARON molecular studies. [facility] Comment: MD Keren LOWE [id number] Dictated by: MD Keren LOWE [id number] Dictated Date/Time: 10.29.2022 14:21 PM FISHER MUSSEL Transcribed Date/Time: 10.29.2022 14:21 PM FISHER MUSSEL Electronically Signed By: MD Keren GARCIA [id number] on 10.29.2022 14:21 PM Specimen Anatomical Collection Method Collection Time Receive d Time (Source) Location / / Volume Laterality Blood 10/29/2022 12:00 10/29/2022 PM FISHER MUSSEL 12:09 PM FISHER MUSSEL Narrative [facility] - 2:21 PM FISHER MUSSEL Differential is referred to Pathologist for review. Devin Sierra MD LAB BLOOD ORDERABLES Performing Organization Address City/[facility] Phon e Number [facility] CANCER Unless otherwise noted, [address] all lab tests performed by: Division of Pathology and Laboratory Medicine [address] [place] PML Stain PB (10/29/2022 12:00 PM FISHER MUSSEL) [facility] PB PML The PML(POD) stain is negati ve in this patient, which makes it unlikely that this patient has acute progranulocytic leukemia. Rather the findings are suggestive of acute myeloid leukemia with a degree [facility] MD of differentiation in the myeloid series of cells. SHARON Suggest correlation with im munophenotype, cytogenetic and molecular studies to better classify this process. [facility] Specimen Anatomical Collection Method Collection Time Receive d Time (Source) Location / / Volume Laterality Blood 10/29/2022 12:00 10/29/2022 3:50 PM FISHER MUSSEL PM FISHER MUSSEL Devin Sierra MD LAB BLOOD ORDERABLES Performing Organization Address [facility] Phon e Number [facility] CANCER Unless otherwise noted, [address] all lab tests performed by: Division of Pathology and Laboratory Medicine [address] [place] Peroxidase Stain PB (10/29/2022 12:00 PM FISHER MUSSEL) [facility] Signature PB PEROX The myeloperoxidase stain is positive in at least 95% of the cells. However, the staining is variable and some cells show only a few granules surrounding, but not obscuring, the nucleus. These resul AR ts are consistent with acute myeloid leukemia. SHARON Suggest correlation with cytogenetic and molecular studies. [facility] Specimen Anatomical Collection Method Collection Time Receive d Time (Source) Location / / Volume Laterality Blood 10/29/2022 12:00 10/29/2022 3:50 PM FISHER MUSSEL PM FISHER MUSSEL Devin Sierra MD LAB BLOOD ORDERABLES Performing Organization Address City/[facility] Phon e Number [facility] Unless otherwise noted, [address] all lab tests performed by: Division of Pathology and Laboratory Medicine [address] [place] [address] [place] Hepatitis C Virus Ab (10/29/2022 12:00 PM FISHER MUSSEL) [facility] HCVAb. Non Reactive Non Reactive [facility] Comment: Antibody detection in the immunocompromi sed and immunosuppressed population may be delayed or absent entirely. Therefore serial testing, correlation with other clinical findings, and supplemental testin g (if available) should be taken into co nsideration when interpreting the results. Specimen Anatomical Collection Method Collection Time Receive d Time (Source) Location / / Volume Laterality Blood 10/29/2022 12:00 10/29/2022 PM FISHER MUSSEL 12:31 PM FISHER MUSSEL Devin Sierra MD LAB BLOOD ORDERABLES Performing Organization Address [facility] Phon e Number [facility] Unless otherwise noted, [address] all lab tests performed by: Division of Pathology and Laboratory Medicine [facility] [place] (ABNORMAL) Hepatitis B Total Ig Core Ab (SCREENING) (anti-HBc total Ig; HBcAb total Ig) (10/29/2022 12:00 PM FISHER MUSSEL) [facility] HBcAb. Reactive (A) Non Reactive [facility] Specimen Anatomical Collection Method Collection Time Receive d Time (Source) Location / / Volume Laterality Blood 10/29/2022 12:00 10/29/2022 PM FISHER MUSSEL 12:31 PM FISHER MUSSEL Devin Sierra MD LAB BLOOD ORDERABLES Performing Organization Address [facility] Phon e Number [facility] Unless otherwise noted, [address] all lab tests performed by: Division of Pathology and Laboratory Medicine [address] [place], [place] [address] Hep A IgM Ab (10/29/2022 12:00 PM FISHER MUSSEL) [facility] IgM-[place] Negative Negative [facility] Comment: Result does not exclude the possibility of exposure to hepatitis A virus. Antibody level duri ng early infection stage may be below the limit of detectio n of the assay. Test Performed by: [facility] [address] [place], [place] [address] Fruit Picker: Tristan Amos M.D. Ph. D.; CLIA# [id number] Specimen Anatomical Collection Method Collection Time Receive d Time (Source) Location / / Volume Laterality Blood 10/29/2022 12:00 10/29/2022 PM FISHER MUSSEL 12:44 PM FISHER MUSSEL Devin Sierra MD LAB BLOOD ORDERABLES Performing Organization Address City/State/ZIP Code Phon e Number [facility] Unless otherwise noted, [address] all lab tests performed by: Division of Pathology and Laboratory Medicine [address] [place] [address] [place] Hepatitis B Surface Ag (10/29/2022 12:00 PM FISHER MUSSEL) [facility] gist Method Time Signature HBsAg. Non Reactive Non Reactive [facility] Specimen Anatomical Collection Method Collection Time Receive d Time (Source) Location / / Volume Laterality Blood 10/29/2022 12:00 10/29/2022 PM FISHER MUSSEL 12:31 PM FISHER MUSSEL Devin Sierra MD LAB BLOOD ORDERABLES Performing Organization Address City/[facility] Phon e Number [facility] Unless otherwise noted, [address] all lab tests performed by: Division of Pathology and Laboratory Medicine [address] [place], [place] [address] Retic Auto (10/29/2022 12:00 PM FISHER MUSSEL) athologist Signature Retic Cnt Auto 0.7 0.5 - 1.5 [facility] RETHE 34.3 23.2 - [facility] 37.5 pg CAN[facility]ER CENTER IRF 12.3 2.3 - 18.0 [facility] Specimen Anatomical Collection Method Collection Time Receive d Time (Source) Location / / Volume Laterality Blood 10/29/2022 12:00 10/29/2022 PM FISHER MUSSEL 12:09 PM FISHER MUSSEL Devin Sierra MD LAB BLOOD ORDERABLES Performing Organization Address City/[facility] Phon e Number [facility] Unless otherwise noted, [address] all lab tests performed by: Division of Pathology and Laboratory Medicine [address] [place], [place] [address]d TSH (10/29/2022 12:00 PM FISHER MUSSEL) athologist Signature TSH 3.63 0.27 - 4.20 [facility] mcunit/mL [facility] Specimen Anatomical Collection Method Collection Time Receive d Time (Source) Location / / Volume Laterality Blood 10/29/2022 12:00 10/29/2022 PM FISHER MUSSEL 12:16 PM FISHER MUSSEL Devin Seirra MD LAB BLOOD ORDERABLES Performing Organization Address City/[facility]/ZIP Code Phon e Number [facility] CANCER Unless otherwise noted, [address] all lab tests performed by: Division of Pathology and Laboratory Medicine [address] (ABNORMAL) Ferritin (10/29/2022 12:00 PM FISHER MUSSEL) P athologist Signature Ferritin Lvl 2,364 (H) 30 - [address] [facility] ng/[facility] Specimen Anatomical Collection Method Collection Time Receive d Time (Source) Location / / Volume Laterality Blood 10/29/2022 12:00 10/29/2022 PM FISHER MUSSEL 12:16 PM FISHER MUSSEL Devin Sierra MD LAB BLOOD ORDERABLES Performing Organization Address City/[facility]/ZIP Code Phon e Number [facility] CANCER Unless otherwise noted, [address] all lab tests performed by: Division of Pathology and Laboratory Medicine [address] (ABNORMAL) Vitamin B12 Level (10/29/2022 12:00 PM FISHER MUSSEL) Analysis Performed At Patho logist Time Signature Vitamin B12 1,697 (H) 211 - [address] [facility] Lvl pg/mL [facility] Specimen Anatomical Collection Method Collection Time Receive d Time (Source) Location / / Volume Laterality Blood 10/29/2022 12:00 10/29/2022 PM FISHER MUSSEL 12:22 PM FISHER MUSSEL Devin Sierra MD LAB BLOOD ORDERABLES Performing Organization Address City/[facility]/ZIP Code Phon e Number [facility] CANCER Unless otherwise noted, [address] all lab tests performed by: Division of Pathology and Laboratory Medicine [address] (ABNORMAL) Beta 2 Microglobulin (10/29/2022 12:00 PM FISHER MUSSEL) P athologist Signature Beta2 4.8 (H) 0.8 - 2.3 [facility] Microglob mg/L [facility] Comment: This test is measured by turbid imetric methodology on the [employer] Optilite analyzer. Results obtained from different methods are not interchangeable. 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
--- OUTSIDE RECORDS SUMMARY | 2022-12-21 10:43 | XMS REPORT | Continuity of Care Document ---
:1950 Author Organization [facility] t Address [address] [place] [address] Care Team Providers Name Role Phone [phone] Primary Care Physician Unavailable SYSTEM, PROVIDER NOT IN Attending Clinician Unavailable ANTONIO DIEGO Attending Clinician Unavailable TIFFANY DEVINE Attending Clinician Unavailable Javier GAYTAN, Cipriano Shah Attending Clinician Unavailable Dang Neves NP Attending Clinician Zeus GAYTAN, Ruby Zuniga Attending Clinician Unavailable DANG NEVES Attending Clinician Unavailable Melanie Sibley Attending Clinician David Nguyen MD Attending Clinician Antonio Diego MD Attending Clinician Rere Islas MD Attending Clinician RERE ISLAS Attending Clinician Unavailable Rosa Maria Orantes APN Attending Clinician Nayla Mcfadden Attending Clinician Unavailable Skyler COVARRUBIAS, Cristiano Ruelas Attending Clinician Donnie Colindres Attending Clinician Laly GAYTAN, Froylan Wynne Attending Clinician Unavailable Glen [place] Attending Clinician [facility]ending Clinician Christina Jean RD Attending Clinician Mckinley Wood Attending Clinician Stefany GAYTAN, Corine Carballo Attending Clinician Unavailable MCKINLEY LEDEZMA Attending Clinician Unavailable Shellie Leo Attending Clinician Fabiola RN, Alexander Attending Clinician Quinn GAYTAN, Loida Attending Clinician Unavailable Rigo COVARRUBIAS, Devin Attending Clinician Alva COVARRUBIAS, Jennifer Attending Clinician JENNIFER CALLE Attending Clinician Unavailable Martínez Coombs Attending Clinician Unavailable Thais NEGRON, Mary Jane Attending Clinician Papi Trejo Attending Clinician Nu NEGRON, Zamzam Maddox Attending Clinician Rigoberto Phillip MD Attending Clinician Martina GAYTAN, Kailyn Attending Clinician Oziel Blackmon CSC Attending Clinician Unavailable SUZANNE SULLIVAN Attending Clinician Unavailable CHRISTIANNE MOFFETT Attending Clinician Unavailable Nilson COVARRUBIAS, Tiffany Rodriguez Attending Clinician [phone] Marlon aPz CRNA Attending Clinician Cammie Roca MD Attending Clinician Kaley GAYTAN, Gaby Zuniga Attending Clinician Unavailable Doctor Unassigned, [place] Attending Clinician Unavailable Only, Adc Test Attending Clinician Unavailable Pob, Adc Lab Main Attending Clinician Unavailable TIFFANY DEVINE Admitting Clinician Unavailable RERE ISLAS Admitting Clinician Unavailable ANTONIO DIEGO Admitting Clinician Unavailable Nilson COVARRUBIAS, Tiffany Rodriguez Admitting Clinician [phone] Payers Payer Name Policy Type Policy Number Effective Date Expiration Date S nancy MEDICARE PART A [id number] 2022 2022 AND B 00:00:00 00:00:00 MEDICARE PART A [id number] 2016 \\T\\ B 00:00:00 [facility] [id number] 2019 MEDICARE 00:00:00 SUPPLEMENT Problems Condition Condition Condition Status Onset Resolution Last Treating Co mments Source Name Details Category Date Date Treatment Clinician Date Acute DVT Acute DVT Disease Active Uni vers of lower of lower 1-20 ity of leg leg 00:00: [place] 00 MD Fatuma wynne [facility] Fungal Fungal Disease Active Univers pneumonia pneumonia 1-11 ity of 00:00: [place] 00 MD Fatuma wynne [facility] Leukemic Leukemic Disease Active Unive rs infiltrati infiltrati 1-07 it y [place]uma wynne [facility] Pneumonia, Pneumonia, Disease Active 2021-11 U nivers organism organism 2-27 ity of unspecifie [place]ie [place] Fatuma wynne [facility] 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 00 not having not having An derso achieved achieved n remission remission [facility] 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 2021-11 Uni vers current current 2-15 ity of use of use of 00:00: [place] systemic systemic 00 steroid steroid Fatuma [facility] Adverse Adverse Disease Active 2021-11 Univers effect of effect of 2-15 ity of glucocorti glucocorti 00:00: Edgardo frost coids and coids and 00 synthetic synthetic Sean rso analogues analogues [facility] Type 2 Type 2 Disease Active 2021-11 Univers diabetes diabetes 2-13 ity of mellitus mellitus 00:00: [place] with with 00 hyperglyce hyperglyce An derso [facility] Current Current Disease Active 2021-11 Univers use of use of 2-13 ity of insulin insulin 00:00: [place] 00 MD Fatuma wynne [facility] Hemoglobin Hemoglobin Disease Active 2021-11 U nivbe A1c A1c 2-13 ity of greater greater 00:00: [place] than 10 than 10 00 percent percent Fatuma indicating indicating n poor poor Cancer diabetic diabetic Center control control Erythemato Erythemato Disease Active 2021-11 U nivers us rash us rash 2-11 ity of 00:00: [place] 00 MD Fatuma wynne [facility] 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 2-11 ity of 00:00: [place] 00 MD [facility] Chronic Chronic Disease Active 2021-11 Univers kidney kidney 2-11 ity of disease disease 00:00: [place] 00 MD Fatuma wynne [facility] Essential Essential Disease Active 2021-11 Uni vers (primary) (primary) 2-11 ity of hypertensi hypertensi [place] Fatuma wynne [facility] Hyperlipid Hyperlipid Disease Active 2021-11 U nivers emia emia 211 ity of 00:00: [place] 00 MD Fatuma wynne [facility] Anemia due Anemia due Disease Active 2021-11 U nivers to to 2 ity of antineopla antineopla [place] stic stic 00 chemothera chemothera An [facility] 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 00 MD Fatuma wynne [facility] Immunosupp Immunosupp Disease Active 2021-11 U nivers ression ression 12-30 ity of 00:00: [place] 00 MD Fatuma wynne [facility] No known No known Disease Unive rs active active ity of problems problems [facility] Other Other Disease Active Univers specified specified [place] of dermat[place] wynne [facility] Allergies, Adverse Reactions, Alerts Allergy Allergy Status Severity Reaction(s) Onset Inactive Treating Comm ents Source Name Type Date Date Clinician AMPHOTER DRUG Active High Sob 3-0 MD ICIN B INGREDI 1-24 Anderso LIPOSOME 00:00: n 00 AMPHOTER DRUG Active High Sob 2023-0 MD ICIN B INGREDI 1-24 Anderso LIPOSOME 00:00: n 00 AMPHOTER DRUG Active High Sob 2023-0 MD ICIN B INGREDI 1-24 Anderso LIPOSOME 00:00: n 00 AMPHOTER DRUG Active High Sob 3-0 MD ICIN B INGREDI 1-24 Anderso LIPOSOME 00:00: n 00 AMPHOTER DRUG Active High Sob 2023-0 MD ICIN B INGREDI 1-24 Anderso LIPOSOME 00:00: n 00 AMPHOTER DRUG Active High Sob 2023-0 MD ICIN B INGREDI 1-24 Anderso LIPOSOME 00:00: n 00 AMPHOTER DRUG Active High Sob 2023-0 MD ICIN B INGREDI 1-24 Anderso LIPOSOME 00:00: n 00 AMPHOTER DRUG Active High Sob 2023-0 MD ICIN B INGREDI 1-24 Anderso LIPOSOME 00:00: n 00 AMPHOTER DRUG Active High Sob 2023-0 MD ICIN B INGREDI 1-24 Anderso LIPOSOME 00:00: n 00 AMPHOTER DRUG Active High Sob 2023-0 MD ICIN B INGREDI 1-24 Anderso LIPOSOME 00:00: n 00 AMPHOTER DRUG Active High Sob 2023-0 MD ICIN B INGREDI 1-24 Anderso LIPOSOME 00:00: n 00 AMPHOTER DRUG Active High Sob 2023-0 MD ICIN B INGREDI 1-24 Anderso LIPOSOME 00:00: n 00 AMPHOTER DRUG Active High Sob 2023-0 MD ICIN B INGREDI 1-24 Anderso LIPOSOME 00:00: n 00 AMPHOTER DRUG Active High Sob 2023-0 MD ICIN B INGREDI 1-24 Anderso LIPOSOME 00:00: n 00 AMPHOTER DRUG Active High Sob 2023-0 MD ICIN B INGREDI 1-24 Anderso LIPOSOME 00:00: n 00 AMPHOTER DRUG Active High Sob 2023-0 MD ICIN B INGREDI 1-24 Anderso LIPOSOME 00:00: n 00 AMPHOTER DRUG Active High Sob 2023-0 MD ICIN B INGREDI 1-24 Anderso LIPOSOME 00:00: n 00 AMPHOTER DRUG Active High Sob 2023-0 MD ICIN B INGREDI 1-24 Anderso LIPOSOME 00:00: n 00 AMPHOTER DRUG Active High Sob 2023-0 MD ICIN B INGREDI 1-24 Anderso LIPOSOME 00:00: n 00 AMPHOTER DRUG Active High Sob 2023-0 MD ICIN B INGREDI 1-24 Anderso LIPOSOME 00:00: n 00 AMPHOTER DRUG Active High Sob 2023-0 MD ICIN B INGREDI 1-24 Anderso LIPOSOME 00:00: n 00 AMPHOTER DRUG Active High Sob 2023-0 MD ICIN B INGREDI 1-24 Anderso LIPOSOME 00:00: n 00 AMPHOTER DRUG Active High Sob 2023-0 MD ICIN B INGREDI 1-24 Anderso LIPOSOME 00:00: n 00 AMPHOTER DRUG Active High Sob 2023-0 MD ICIN B INGREDI 1-24 Anderso LIPOSOME 00:00: n 00 AMPHOTER DRUG Active High Sob 2023-0 MD ICIN B INGREDI 1-24 Anderso LIPOSOME 00:00: n 00 AMPHOTER DRUG Active High Sob 2023-0 MD ICIN B INGREDI 1-24 Anderso LIPOSOME 00:00: n 00 AMPHOTER DRUG Active High Sob 2023-0 MD ICIN B INGREDI 1-24 Anderso LIPOSOME 00:00: n 00 AMPHOTER DRUG Active High Sob 2023-0 MD ICIN B INGREDI 1-24 Anderso LIPOSOME 00:00: n 00 AMPHOTER DRUG Active High Sob 2023-0 MD ICIN B INGREDI 1-24 Anderso LIPOSOME 00:00: n 00 AMPHOTER DRUG Active High Sob 2023-0 MD ICIN B INGREDI 1-24 Anderso LIPOSOME 00:00: n 00 AMPHOTER DRUG Active High Sob 2023-0 MD ICIN B INGREDI 1-24 Anderso LIPOSOME 00:00: n 00 AMPHOTER DRUG Active High Sob 2023-0 MD ICIN B INGREDI 1-24 Anderso LIPOSOME 00:00: n 00 AMPHOTER DRUG Active High Sob 2023-0 MD ICIN B INGREDI 1-24 Anderso LIPOSOME 00:00: n 00 AMPHOTER DRUG Active High Sob 2023-0 MD ICIN B INGREDI 1-24 Anderso LIPOSOME 00:00: n 00 AMPHOTER DRUG Active High Sob 2023-0 MD ICIN B INGREDI 1-24 Anderso LIPOSOME 00:00: n 00 AMPHOTER DRUG Active High Sob 2023-0 MD ICIN B INGREDI 1-24 Anderso LIPOSOME 00:00: n 00 AMPHOTER DRUG Active High Sob 2023-0 MD ICIN B INGREDI 1-24 Anderso LIPOSOME 00:00: n 00 AMPHOTER DRUG Active High Sob 2023-0 MD ICIN B INGREDI 1-24 Anderso LIPOSOME 00:00: n 00 AMPHOTER DRUG Active High Sob 2023-0 MD ICIN B INGREDI 1-24 Anderso LIPOSOME 00:00: n 00 AMPHOTER DRUG Active High Sob 2023-0 MD ICIN B INGREDI 1-24 Anderso LIPOSOME 00:00: n 00 AMPHOTER DRUG Active High Sob 2023-0 MD ICIN B INGREDI 1-24 Anderso LIPOSOME 00:00: n 00 AMPHOTER DRUG Active High Sob 2023-0 MD ICIN B INGREDI 1-24 Anderso LIPOSOME 00:00: n 00 AMPHOTER DRUG Active High Sob 2023-0 MD ICIN B INGREDI 1-24 Anderso LIPOSOME 00:00: n 00 AMPHOTER DRUG Active High Sob 2023-0 MD ICIN B INGREDI 1-24 Anderso LIPOSOME 00:00: n 00 AMPHOTER DRUG Active High Sob 2023-0 MD ICIN B INGREDI 1-24 Anderso LIPOSOME 00:00: n 00 AMPHOTER DRUG Active High Sob 2023-0 MD ICIN B INGREDI 1-24 Anderso LIPOSOME 00:00: n 00 AMPHOTER DRUG Active High Sob 2023-0 MD ICIN B INGREDI 1-24 Anderso LIPOSOME 00:00: n 00 AMPHOTER DRUG Active High Sob 2023-0 MD ICIN B INGREDI 1-24 Anderso LIPOSOME 00:00: n 00 AMPHOTER DRUG Active High Sob 2023-0 MD ICIN B INGREDI 1-24 Anderso LIPOSOME 00:00: n 00 AMPHOTER DRUG Active High Sob 2023-0 MD ICIN B INGREDI 1-24 Anderso LIPOSOME 00:00: n 00 AMPHOTER DRUG Active High Sob 2023-0 MD ICIN B INGREDI 1-24 Anderso LIPOSOME 00:00: n 00 AMPHOTER DRUG Active High Sob 2023-0 MD ICIN B INGREDI 1-24 Anderso LIPOSOME 00:00: n 00 AMPHOTER DRUG Active High Sob 2023-0 MD ICIN B INGREDI 1-24 Anderso LIPOSOME 00:00: n 00 AMPHOTER DRUG Active High Sob 2023-0 MD ICIN B INGREDI 1-24 Anderso LIPOSOME 00:00: n 00 AMPHOTER DRUG Active High Sob 2023-0 MD ICIN B INGREDI 1-24 Anderso LIPOSOME 00:00: n 00 AMPHOTER DRUG Active High Sob 2023-0 MD ICIN B INGREDI 1-24 Anderso LIPOSOME 00:00: n 00 AMPHOTER DRUG Active High Sob 2023-0 MD ICIN B INGREDI 1-24 Anderso LIPOSOME 00:00: n 00 AMPHOTER DRUG Active High Sob 2023-0 MD ICIN B INGREDI 1-24 Anderso LIPOSOME 00:00: n 00 AMPHOTER DRUG Active High Sob 2023-0 MD ICIN B INGREDI 1-24 Anderso LIPOSOME 00:00: n 00 AMPHOTER DRUG Active High Sob 2023-0 MD ICIN B INGREDI 1-24 Anderso LIPOSOME 00:00: n 00 AMPHOTER DRUG Active High Sob 2023-0 MD ICIN B INGREDI 1-24 Anderso LIPOSOME 00:00: n 00 AMPHOTER DRUG Active High Sob 2023-0 MD ICIN B INGREDI 1-24 Anderso LIPOSOME 00:00: n 00 AMPHOTER DRUG Active High Sob 2023-0 MD ICIN B INGREDI 1-24 Anderso LIPOSOME 00:00: n 00 AMPHOTER DRUG Active High Sob 2023-0 MD ICIN B INGREDI 1-24 Anderso LIPOSOME 00:00: n 00 AMPHOTER DRUG Active High Sob 2023-0 MD ICIN B INGREDI 1-24 Anderso LIPOSOME 00:00: n 00 AMPHOTER DRUG Active High Sob 2023-0 MD ICIN B INGREDI 1-24 Anderso LIPOSOME 00:00: n 00 AMPHOTER DRUG Active High Sob 2023-0 MD ICIN B INGREDI 1-24 Anderso LIPOSOME 00:00: n 00 AMPHOTER DRUG Active High Sob 2023-0 MD ICIN B INGREDI 1-24 Anderso LIPOSOME 00:00: n 00 AMPHOTER DRUG Active High Sob 2023-0 MD ICIN B INGREDI 1-24 Anderso LIPOSOME 00:00: n 00 AMPHOTER DRUG Active High Sob 2023-0 MD ICIN B INGREDI 1-24 Anderso LIPOSOME 00:00: n 00 AMPHOTER DRUG Active High Sob 2023-0 MD ICIN B INGREDI 1-24 Anderso LIPOSOME 00:00: n 00 AMPHOTER DRUG Active High Sob 2023-0 MD ICIN B INGREDI 1-24 Anderso LIPOSOME 00:00: n 00 AMPHOTER DRUG Active High Sob 2023-0 MD ICIN B INGREDI 1-24 Anderso LIPOSOME 00:00: n 00 AMPHOTER DRUG Active High Sob 2023-0 MD ICIN B INGREDI 1-24 Anderso LIPOSOME 00:00: n 00 AMPHOTER DRUG Active High Sob 2023-0 MD ICIN B INGREDI 1-24 Anderso LIPOSOME 00:00: n 00 AMPHOTER DRUG Active High Sob 2023-0 MD ICIN B INGREDI 1-24 Anderso LIPOSOME 00:00: n 00 AMPHOTER DRUG Active High Sob 2023-0 MD ICIN B INGREDI 1-24 Anderso LIPOSOME 00:00: n 00 AMPHOTER DRUG Active High Sob 2023-0 MD ICIN B INGREDI 1-24 Anderso LIPOSOME 00:00: n 00 AMPHOTER DRUG Active High Sob 2023-0 MD ICIN B INGREDI 1-24 Anderso LIPOSOME 00:00: n 00 AMPHOTER DRUG Active High Sob 2023-0 MD ICIN B INGREDI 1-24 Anderso LIPOSOME 00:00: n 00 AMPHOTER DRUG Active High Sob 2023-0 MD ICIN B INGREDI 1-24 Anderso LIPOSOME 00:00: n 00 AMPHOTER DRUG Active High Sob 2023-0 MD ICIN B INGREDI 1-24 Anderso LIPOSOME 00:00: n 00 AMPHOTER DRUG Active High Sob 2023-0 MD ICIN B INGREDI 1-24 Anderso LIPOSOME 00:00: n 00 AMPHOTER DRUG Active High Sob 2023-0 MD ICIN B INGREDI 1-24 Anderso LIPOSOME 00:00: n 00 AMPHOTER DRUG Active High Sob 2023-0 MD ICIN B INGREDI 1-24 Anderso LIPOSOME 00:00: n 00 AMPHOTER DRUG Active High Sob 2023-0 MD ICIN B INGREDI 1-24 Anderso LIPOSOME 00:00: n 00 AMPHOTER DRUG Active High Sob 2023-0 MD ICIN B INGREDI 1-24 Anderso LIPOSOME 00:00: n 00 AMPHOTER DRUG Active High Sob 2023-0 MD ICIN B INGREDI 1-24 Anderso LIPOSOME 00:00: n 00 AMPHOTER DRUG Active High Sob 2023-0 MD ICIN B INGREDI 1-24 Anderso LIPOSOME 00:00: n 00 AMPHOTER DRUG Active High Sob 2023-0 MD ICIN B INGREDI 1-24 Anderso LIPOSOME 00:00: n 00 AMPHOTER DRUG Active High Sob 2023-0 MD ICIN B INGREDI 1-24 Anderso LIPOSOME 00:00: n 00 AMPHOTER DRUG Active High Sob 2023-0 MD ICIN B INGREDI 1-24 Anderso LIPOSOME 00:00: n 00 AMPHOTER DRUG Active High Sob 2023-0 MD ICIN B INGREDI 1-24 Anderso LIPOSOME 00:00: n 00 AMPHOTER DRUG Active High Sob 2023-0 MD ICIN B INGREDI 1-24 Anderso LIPOSOME 00:00: n 00 AMPHOTER DRUG Active High Sob 2023-0 MD ICIN B INGREDI 1-24 Anderso LIPOSOME 00:00: n 00 AMPHOTER DRUG Active High Sob 2023-0 MD ICIN B INGREDI 1-24 Anderso LIPOSOME 00:00: n 00 AMPHOTER DRUG Active High Sob 2023-0 MD ICIN B INGREDI 1-24 Anderso LIPOSOME 00:00: n 00 AMPHOTER DRUG Active High Sob 2023-0 MD ICIN B INGREDI 1-24 Anderso LIPOSOME 00:00: n 00 AMPHOTER DRUG Active High Sob 2023-0 MD ICIN B INGREDI 1-24 Anderso LIPOSOME 00:00: n 00 AMPHOTER DRUG Active High Sob 2023-0 MD ICIN B INGREDI 1-24 Anderso LIPOSOME 00:00: n 00 AMPHOTER DRUG Active High Sob 2023-0 MD ICIN B INGREDI 1-24 Anderso LIPOSOME 00:00: n 00 AMPHOTER DRUG Active High Sob 2023-0 MD ICIN B INGREDI 1-24 Anderso LIPOSOME 00:00: n 00 AMPHOTER DRUG Active High Sob 2023-0 MD ICIN B INGREDI 1-24 Anderso LIPOSOME 00:00: n 00 AMPHOTER DRUG Active High Sob 2023-0 MD ICIN B INGREDI 1-24 Anderso LIPOSOME 00:00: n 00 AMPHOTER DRUG Active High Sob 2023-0 MD ICIN B INGREDI 1-24 Anderso LIPOSOME 00:00: n 00 AMPHOTER DRUG Active High Sob 2023-0 MD ICIN B INGREDI 1-24 Anderso LIPOSOME 00:00: n 00 AMPHOTER DRUG Active High Sob 2023-0 MD ICIN B INGREDI 1-24 Anderso LIPOSOME 00:00: n 00 AMPHOTER DRUG Active High Sob 2023-0 MD ICIN B INGREDI 1-24 Anderso LIPOSOME 00:00: n 00 AMPHOTER DRUG Active High Sob 2023-0 MD ICIN B INGREDI 1-24 Anderso LIPOSOME 00:00: n 00 AMPHOTER DRUG Active High Sob 2023-0 MD ICIN B INGREDI 1-24 Anderso LIPOSOME 00:00: n 00 AMPHOTER DRUG Active High Sob 2023-0 MD ICIN B INGREDI 1-24 Anderso LIPOSOME 00:00: n 00 AMPHOTER DRUG Active High Sob 2023-0 MD ICIN B INGREDI 1-24 Anderso LIPOSOME 00:00: n 00 AMPHOTER DRUG Active High Sob 2023-0 MD ICIN B INGREDI 1-24 Anderso LIPOSOME 00:00: n 00 AMPHOTER DRUG Active High Sob 2023-0 MD ICIN B INGREDI 1-24 Anderso LIPOSOME 00:00: n 00 AMPHOTER DRUG Active High Sob 2023-0 MD ICIN B INGREDI 1-24 Anderso LIPOSOME 00:00: n 00 AMPHOTER DRUG Active High Sob 2023-0 MD ICIN B INGREDI 1-24 Anderso LIPOSOME 00:00: n 00 AMPHOTER DRUG Active High Sob 2023-0 MD ICIN B INGREDI 1-24 Anderso LIPOSOME 00:00: n 00 AMPHOTER DRUG Active High Sob 2023-0 MD ICIN B INGREDI 1-24 Anderso LIPOSOME 00:00: n 00 AMPHOTER DRUG Active High Sob 2023-0 MD ICIN B INGREDI 1-24 Anderso LIPOSOME 00:00: n 00 AMPHOTER DRUG Active High Sob 2023-0 MD ICIN B INGREDI 1-24 Anderso LIPOSOME 00:00: n 00 AMPHOTER DRUG Active High Sob 2023-0 MD ICIN B INGREDI 1-24 Anderso LIPOSOME 00:00: n 00 AMPHOTER DRUG Active High Sob 2023-0 MD ICIN B INGREDI 1-24 Anderso LIPOSOME 00:00: n 00 AMPHOTER DRUG Active High Sob 2023-0 MD ICIN B INGREDI 1-24 Anderso LIPOSOME 00:00: n 00 AMPHOTER DRUG Active High Sob 2023-0 MD ICIN B INGREDI 1-24 Anderso LIPOSOME 00:00: n 00 AMPHOTER DRUG Active High Sob 2023-0 MD ICIN B INGREDI 1-24 Anderso LIPOSOME 00:00: n 00 AMPHOTER DRUG Active High Sob 2023-0 MD ICIN B INGREDI 1-24 Anderso LIPOSOME 00:00: n 00 AMPHOTER DRUG Active High Sob 2023-0 MD ICIN B INGREDI 1-24 Anderso LIPOSOME 00:00: n 00 AMPHOTER DRUG Active High Sob 2023-0 MD ICIN B INGREDI 1-24 Anderso LIPOSOME 00:00: n 00 AMPHOTER DRUG Active High Sob 2023-0 MD ICIN B INGREDI 1-24 Anderso LIPOSOME 00:00: n 00 AMPHOTER DRUG Active High Sob 2023-0 MD ICIN B INGREDI 1-24 Anderso LIPOSOME 00:00: n 00 AMPHOTER DRUG Active High Sob 2023-0 MD ICIN B INGREDI 1-24 Anderso LIPOSOME 00:00: n 00 Sulfamet Drug Active 2023-0 Univers hoxazole Allergy 1-09 ity of -Trimeth 00:00: [place] oprim 00 MD Anderso [facility] SULFAMET DRUG Active 3-0 MD HOXAZOLE 1-09 Anderso -TRIMETH 00:00: n OPRIM 00 SULFAMET DRUG Active 2023-0 MD HOXAZOLE 1-09 Anderso -TRIMETH 00:00: n OPRIM 00 SULFAMET DRUG Active 2023-0 MD HOXAZOLE 1-09 Anderso -TRIMETH 00:00: n OPRIM 00 SULFAMET DRUG Active 2023-0 MD HOXAZOLE 1-09 Anderso -TRIMETH 00:00: n OPRIM 00 SULFAMET DRUG Active 3-0 MD HOXAZOLE 1-09 Anderso -TRIMETH 00:00: n OPRIM 00 SULFAMET DRUG Active 3-0 MD HOXAZOLE 1-09 Anderso -TRIMETH 00:00: n OPRIM 00 SULFAMET DRUG Active 3-0 MD HOXAZOLE 1-09 Anderso -TRIMETH 00:00: n OPRIM 00 SULFAMET DRUG Active 3-0 MD HOXAZOLE 1-09 Anderso -TRIMETH 00:00: n OPRIM 00 SULFAMET DRUG Active 3-0 MD HOXAZOLE 1-09 Anderso -TRIMETH 00:00: n OPRIM 00 SULFAMET DRUG Active 3-0 MD HOXAZOLE 1-09 Anderso -TRIMETH 00:00: n OPRIM 00 SULFAMET DRUG Active 2023-0 MD HOXAZOLE 1-09 Anderso -TRIMETH 00:00: n OPRIM 00 SULFAMET DRUG Active 2023-0 MD HOXAZOLE 1-09 Anderso -TRIMETH 00:00: n OPRIM 00 SULFAMET DRUG Active 2023-0 MD HOXAZOLE 1-09 Anderso -TRIMETH 00:00: n OPRIM 00 SULFAMET DRUG Active 2023-0 MD HOXAZOLE 1-09 Anderso -TRIMETH 00:00: n OPRIM 00 SULFAMET DRUG Active 2023-0 MD HOXAZOLE 1-09 Anderso -TRIMETH 00:00: n OPRIM 00 SULFAMET DRUG Active 2023-0 MD HOXAZOLE 1-09 Anderso -TRIMETH 00:00: n OPRIM 00 SULFAMET DRUG Active 2023-0 MD HOXAZOLE 1-09 Anderso -TRIMETH 00:00: n OPRIM 00 SULFAMET DRUG Active 2023-0 MD HOXAZOLE 1-09 Anderso -TRIMETH 00:00: n OPRIM 00 SULFAMET DRUG Active 2023-0 MD HOXAZOLE 1-09 Anderso -TRIMETH 00:00: n OPRIM 00 SULFAMET DRUG Active 2023-0 MD HOXAZOLE 1-09 Anderso -TRIMETH 00:00: n OPRIM 00 SULFAMET DRUG Active 2023-0 MD HOXAZOLE 1-09 Anderso -TRIMETH 00:00: n OPRIM 00 SULFAMET DRUG Active 2023-0 MD HOXAZOLE 1-09 Anderso -TRIMETH 00:00: n OPRIM 00 SULFAMET DRUG Active 2023-0 MD HOXAZOLE 1-09 Anderso -TRIMETH 00:00: n OPRIM 00 SULFAMET DRUG Active 2023-0 MD HOXAZOLE 1-09 Anderso -TRIMETH 00:00: n OPRIM 00 SULFAMET DRUG Active 2023-0 MD HOXAZOLE 1-09 Anderso -TRIMETH 00:00: n OPRIM 00 SULFAMET DRUG Active 2023-0 MD HOXAZOLE 1-09 Anderso -TRIMETH 00:00: n OPRIM 00 SULFAMET DRUG Active 2023-0 MD HOXAZOLE 1-09 Anderso -TRIMETH 00:00: n OPRIM 00 SULFAMET DRUG Active 2023-0 MD HOXAZOLE 1-09 Anderso -TRIMETH 00:00: n OPRIM 00 SULFAMET DRUG Active 2023-0 MD HOXAZOLE 1-09 Anderso -TRIMETH 00:00: n OPRIM 00 SULFAMET DRUG Active 2023-0 MD HOXAZOLE 1-09 Anderso -TRIMETH 00:00: n OPRIM 00 SULFAMET DRUG Active 2023-0 MD HOXAZOLE 1-09 Anderso -TRIMETH 00:00: n OPRIM 00 SULFAMET DRUG Active 2023-0 MD HOXAZOLE 1-09 Anderso -TRIMETH 00:00: n OPRIM 00 SULFAMET DRUG Active 2023-0 MD HOXAZOLE 1-09 Anderso -TRIMETH 00:00: n OPRIM 00 SULFAMET DRUG Active 2023-0 MD HOXAZOLE 1-09 Anderso -TRIMETH 00:00: n OPRIM 00 SULFAMET DRUG Active 2023-0 MD HOXAZOLE 1-09 Anderso -TRIMETH 00:00: n OPRIM 00 SULFAMET DRUG Active 2023-0 MD HOXAZOLE 1-09 Anderso -TRIMETH 00:00: n OPRIM 00 SULFAMET DRUG Active 2023-0 MD HOXAZOLE 1-09 Anderso -TRIMETH 00:00: n OPRIM 00 SULFAMET DRUG Active 2023-0 MD HOXAZOLE 1-09 Anderso -TRIMETH 00:00: n OPRIM 00 SULFAMET DRUG Active 2023-0 MD HOXAZOLE 1-09 Anderso -TRIMETH 00:00: n OPRIM 00 SULFAMET DRUG Active 2023-0 MD HOXAZOLE 1-09 Anderso -TRIMETH 00:00: n OPRIM 00 SULFAMET DRUG Active 2023-0 MD HOXAZOLE 1-09 Anderso -TRIMETH 00:00: n OPRIM 00 SULFAMET DRUG Active 3-0 MD HOXAZOLE 1-09 Anderso -TRIMETH 00:00: n OPRIM 00 SULFAMET DRUG Active 2023-0 MD HOXAZOLE 1-09 Anderso -TRIMETH 00:00: n OPRIM 00 SULFAMET DRUG Active 2023-0 MD HOXAZOLE 1-09 Anderso -TRIMETH 00:00: n OPRIM 00 SULFAMET DRUG Active 2023-0 MD HOXAZOLE 1-09 Anderso -TRIMETH 00:00: n OPRIM 00 SULFAMET DRUG Active 2023-0 MD [place] 1-09 Anderso -TRIMETH 00:00: n OPRIM 00 SULFAMET DRUG Active 2023-0 MD [place] 1-09 Anderso -TRIMETH 00:00: n OPRIM 00 SULFAMET DRUG Active 2023-0 MD [place] 1-09 Anderso -TRIMETH 00:00: n OPRIM 00 SULFAMET DRUG Active 2023-0 MD [place] 1-09 Anderso -TRIMETH 00:00: n OPRIM 00 SULFAMET DRUG Active 2023-0 MD [place] 1-09 Anderso -TRIMETH 00:00: n OPRIM 00 SULFAMET DRUG Active 2023-0 MD [place] 1-09 Anderso -TRIMETH 00:00: n OPRIM 00 SULFAMET DRUG Active 2023-0 MD [place] 1-09 Anderso -TRIMETH 00:00: n OPRIM 00 SULFAMET DRUG Active 2023-0 MD [place] 1-09 Anderso -TRIMETH 00:00: n OPRIM 00 SULFAMET DRUG Active 2023-0 MD [place] 1-09 Anderso -TRIMETH 00:00: n OPRIM 00 SULFAMET DRUG Active 2023-0 MD [place] 1-09 Anderso -TRIMETH 00:00: n OPRIM 00 SULFAMET DRUG Active 2023-0 MD [place] 1-09 Anderso -TRIMETH 00:00: n OPRIM 00 SULFAMET DRUG Active 3-0 MD [place] 1-09 Anderso -TRIMETH 00:00: n OPRIM 00 SULFAMET DRUG Active 3-0 MD [place] 1-09 Anderso -TRIMETH 00:00: n OPRIM 00 SULFAMET DRUG Active 3-0 MD [place] 1-09 Anderso -TRIMETH 00:00: n OPRIM 00 SULFAMET DRUG Active 3-0 MD [place] 1-09 Anderso -TRIMETH 00:00: n OPRIM 00 SULFAMET DRUG Active 3-0 MD [place] 1-09 Anderso -TRIMETH 00:00: n OPRIM 00 SULFAMET DRUG Active 3-0 MD [place] 1-09 Anderso -TRIMETH 00:00: n OPRIM 00 SULFAMET DRUG Active 2023-0 MD [place] 1-09 Anderso -TRIMETH 00:00: n OPRIM 00 SULFAMET DRUG Active 3-0 MD [place] 1-09 Anderso -TRIMETH 00:00: n OPRIM 00 SULFAMET DRUG Active 2023-0 MD [place] 1-09 Anderso -TRIMETH 00:00: n OPRIM 00 SULFAMET DRUG Active 2023-0 MD [place] 1-09 Anderso -TRIMETH 00:00: n OPRIM 00 SULFAMET DRUG Active 2023-0 MD [place] 1-09 Anderso -TRIMETH 00:00: n OPRIM 00 SULFAMET DRUG Active 2023-0 MD [place] 1-09 Anderso -TRIMETH 00:00: n OPRIM 00 SULFAMET DRUG Active 2023-0 MD [place] 1-09 Anderso -TRIMETH 00:00: n OPRIM 00 SULFAMET DRUG Active 2023-0 MD [place] 1-09 Anderso -TRIMETH 00:00: n OPRIM 00 SULFAMET DRUG Active 2023-0 MD [place] 1-09 Anderso -TRIMETH 00:00: n OPRIM 00 SULFAMET DRUG Active 2023-0 MD [place] 1-09 Anderso -TRIMETH 00:00: n OPRIM 00 SULFAMET DRUG Active 2023-0 MD [place] 1-09 Anderso -TRIMETH 00:00: n OPRIM 00 SULFAMET DRUG Active 2023-0 MD [place] 1-09 Anderso -TRIMETH 00:00: n OPRIM 00 SULFAMET DRUG Active 2023-0 MD [facility] 1-09 [facility] -TRIMETH 00:00: n OPRIM 00 SULFAMET DRUG Active 2023-0 MD [facility] 1-09 [facility] -TRIMETH 00:00: n OPRIM 00 SULFAMET DRUG Active 3-0 MD [place] 1-09 [facility] -TRIMETH 00:00: n OPRIM 00 SULFAMET DRUG Active 3-0 MD [place] 1-09 [facility] -TRIMETH 00:00: n OPRIM 00 SULFAMET DRUG Active 2023-0 MD [place] 1-09 Anders[facility] -TRIMETH 00:00: n OPRIM 00 SULFAMET DRUG Active 2023-0 MD [place] 1-09 [facility] -TRIMETH 00:00: n OPRIM 00 SULFAMET DRUG Active 2023-0 MD [place] 1-09 Anders[facility] -TRIMETH 00:00: n OPRIM 00 SULFAMET DRUG Active 2023-0 MD [place] 1-09 [facility] -TRIMETH 00:00: n OPRIM 00 SULFAMET DRUG Active 2023-0 MD [place] 1-09 [facility] -TRIMETH 00:00: n OPRIM 00 SULFAMET DRUG Active 2023-0 MD [place] 1-09 Anders[facility] -TRIMETH 00:00: n OPRIM 00 SULFAMET DRUG Active 2023-0 MD [place] 1-09 [facility] -TRIMETH 00:00: n OPRIM 00 SULFAMET DRUG Active 2023-0 MD [place] 1-09 Anders[facility] -TRIMETH 00:00: n OPRIM 00 SULFAMET DRUG Active 2023-0 MD [place] 1-09 Anders[facility] -TRIMETH 00:00: n OPRIM 00 SULFAMET DRUG Active 2023-0 MD [place] 1-09 Anders[facility] -TRIMETH 00:00: n OPRIM 00 SULFAMET DRUG Active 2023-0 MD [place] 1-09 Anders[facility] -TRIMETH 00:00: n OPRIM 00 SULFAMET DRUG Active 2023-0 MD [place] 1-09 [facility] -TRIMETH 00:00: n OPRIM 00 SULFAMET DRUG Active 2023-0 MD [place] 1-09 Anders[facility] -TRIMETH 00:00: n OPRIM 00 SULFAMET DRUG Active 2023-0 MD [place] 1-09 [facility] -TRIMETH 00:00: n OPRIM 00 SULFAMET DRUG Active 2023-0 MD [place] 1-09 [facility] -TRIMETH 00:00: n OPRIM 00 SULFAMET DRUG Active 2023-0 MD [place] 1-09 Anders[facility] -TRIMETH 00:00: n OPRIM 00 SULFAMET DRUG Active 2023-0 MD [place] 1-09 Anders[facility] -TRIMETH 00:00: n OPRIM 00 SULFAMET DRUG Active 2023-0 MD [place] 1-09 Anders[facility] -TRIMETH 00:00: n OPRIM 00 SULFAMET DRUG Active 2023-0 MD [place] 1-09 Anders[facility] -TRIMETH 00:00: n OPRIM 00 SULFAMET DRUG Active 2023-0 MD [place] 1-09 Anders[facility] -TRIMETH 00:00: n OPRIM 00 SULFAMET DRUG Active 2023-0 MD [place] 1-09 Anders[facility] -TRIMETH 00:00: n OPRIM 00 SULFAMET DRUG Active 2023-0 MD [place] 1-09 Anders[facility] -TRIMETH 00:00: n OPRIM 00 SULFAMET DRUG Active 2023-0 MD [place] 1-09 Anders[facility] -TRIMETH 00:00: n OPRIM 00 SULFAMET DRUG Active 2023-0 MD [place] 1-09 [facility] -TRIMETH 00:00: n OPRIM 00 SULFAMET DRUG Active 2023-0 MD [place] 1-09 Anders[facility] -TRIMETH 00:00: n OPRIM 00 SULFAMET DRUG Active 2023-0 MD [place] 1-09 Anders[facility] -TRIMETH 00:00: n OPRIM 00 SULFAMET DRUG Active 2023-0 MD [place] 1-09 Anders[facility] -TRIMETH 00:00: n OPRIM 00 SULFAMET DRUG Active 2023-0 MD [place] 1-09 Anders[facility] -TRIMETH 00:00: n OPRIM 00 SULFAMET DRUG Active 2023-0 MD [place] 1-09 Anders[facility] -TRIMETH 00:00: n OPRIM 00 SULFAMET DRUG Active 2023-0 MD [place] 1-09 Anders[facility] -TRIMETH 00:00: n OPRIM 00 SULFAMET DRUG Active 3-0 MD [place] 1-09 Anders[facility] -TRIMETH 00:00: n OPRIM 00 SULFAMET DRUG Active 2023-0 MD [place] 1-09 Anders[facility] -TRIMETH 00:00: n OPRIM 00 SULFAMET DRUG Active 3-0 MD [place] 1-09 [facility] -TRIMETH 00:00: n OPRIM 00 SULFAMET DRUG Active 3-0 MD [place] 1-09 Anders[facility] -TRIMETH 00:00: n OPRIM 00 SULFAMET DRUG Active 3-0 MD [place] 1-09 [facility] -TRIMETH 00:00: n OPRIM 00 SULFAMET DRUG Active 2023-0 MD [place] 1-09 [facility] -TRIMETH 00:00: n OPRIM 00 SULFAMET DRUG Active 2023-0 MD [place] 1-09 [facility] -TRIMETH 00:00: n OPRIM 00 SULFAMET DRUG Active 2023-0 MD [place] 1-09 [facility] -TRIMETH 00:00: n OPRIM 00 SULFAMET DRUG Active 2023-0 MD [place] 1-09 [facility] -TRIMETH 00:00: n OPRIM 00 SULFAMET DRUG Active 2023-0 MD [place] 1-09 Anders[facility] -TRIMETH 00:00: n OPRIM 00 SULFAMET DRUG Active 2023-0 MD [place] 1-09 Anders[facility] -TRIMETH 00:00: n OPRIM 00 SULFAMET DRUG Active 2023-0 MD [place] 1-09 Anders[facility] -TRIMETH 00:00: n OPRIM 00 SULFAMET DRUG Active 2023-0 MD [place] 1-09 Anders[facility] -TRIMETH 00:00: n OPRIM 00 SULFAMET DRUG Active 2023-0 MD [place] 1-09 Anders[facility] -TRIMETH 00:00: n OPRIM 00 SULFAMET DRUG Active 2023-0 MD [place] 1-09 Anders[facility] -TRIMETH 00:00: n OPRIM 00 SULFAMET DRUG Active 3-0 MD [place] 1-09 Anders[facility] -TRIMETH 00:00: n OPRIM 00 SULFAMET DRUG Active 2023-0 MD [place] 1-09 Anders[facility] -TRIMETH 00:00: n OPRIM 00 SULFAMET DRUG Active 3-0 MD [place] 1-09 [facility] -TRIMETH 00:00: n OPRIM 00 SULFAMET DRUG Active 3-0 MD [place] 1-09 Anders[facility] -TRIMETH 00:00: n OPRIM 00 SULFAMET DRUG Active 3-0 MD [place] 1-09 [facility] -TRIMETH 00:00: n OPRIM 00 SULFAMET DRUG Active 3-0 MD [place] 1-09 [facility] -TRIMETH 00:00: n OPRIM 00 SULFAMET DRUG Active 3-0 MD [place] 1-09 [facility] -TRIMETH 00:00: n OPRIM 00 SULFAMET DRUG Active 3-0 MD [place] 1-09 [facility] -TRIMETH 00:00: n OPRIM 00 SULFAMET DRUG Active 3-0 MD [place] 1-09 [facility] -TRIMETH 00:00: n OPRIM 00 SULFAMET DRUG Active 3-0 MD [place] 1-09 [facility] -TRIMETH 00:00: n OPRIM 00 SULFAMET DRUG Active 2023-0 MD [place] 1-09 [facility] -TRIMETH 00:00: n OPRIM 00 SULFAMET DRUG Active 2023-0 MD [place] 1-09 [facility] -TRIMETH 00:00: n OPRIM 00 SULFAMET DRUG Active 2023-0 MD [place] 1-09 [facility] -TRIMETH 00:00: n OPRIM 00 SULFAMET DRUG Active 2023-0 MD [place] 1-09 [facility] -TRIMETH 00:00: n OPRIM 00 SULFAMET DRUG Active 2023-0 MD [place] 1-09 [facility] -TRIMETH 00:00: n OPRIM 00 SULFAMET DRUG Active 2023-0 MD [place] 1-09 [facility] -TRIMETH 00:00: n OPRIM 00 SULFAMET DRUG Active 2023-0 MD [place] 1-09 [facility] -TRIMETH 00:00: n OPRIM 00 SULFAMET DRUG Active 2023-0 MD [place] 1-09 [facility] -TRIMETH 00:00: n OPRIM 00 SULFAMET DRUG Active 2023-0 MD [place] 1-09 [facility] -TRIMETH 00:00: n OPRIM 00 SULFAMET DRUG Active 2023-0 MD [place] 1-09 [facility] -TRIMETH 00:00: n OPRIM 00 SULFAMET DRUG Active 3-0 MD [place] 1-09 [facility] -TRIMETH 00:00: n OPRIM 00 SULFAMET DRUG Active 3-0 MD [place] 1-09 [facility] -TRIMETH 00:00: n OPRIM 00 SULFAMET DRUG Active 3-0 MD [place] 1-09 [facility] -TRIMETH 00:00: n OPRIM 00 SULFAMET DRUG Active 3-0 MD [place] 1-09 [facility] -TRIMETH 00:00: n OPRIM 00 SULFAMET DRUG Active 3-0 MD [place] 1-09 [facility] -TRIMETH 00:00: n OPRIM 00 SULFAMET DRUG Active 2023-0 MD [place] 1-09 [facility] -TRIMETH 00:00: n OPRIM 00 SULFAMET DRUG Active 2023-0 MD [place] 1-09 [facility] -TRIMETH 00:00: n OPRIM 00 SULFAMET DRUG Active 2023-0 MD [place] 1-09 [facility] -TRIMETH 00:00: n OPRIM 00 SULFAMET DRUG Active 2023-0 MD [place] 1-09 Anders[facility] -TRIMETH 00:00: n OPRIM 00 SULFAMET DRUG Active 2023-0 MD [place] 1-09 [facility] -TRIMETH 00:00: n OPRIM 00 SULFAMET DRUG Active 2023-0 MD [place] 1-09 [facility] -TRIMETH 00:00: n OPRIM 00 SULFAMET DRUG Active 2023-0 MD [place] 1-09 [facility] -TRIMETH 00:00: n OPRIM 00 SULFAMET DRUG Active 2023-0 MD [place] 1-09 [facility] -TRIMETH 00:00: n OPRIM 00 SULFAMET DRUG Active 2023-0 MD [place] 1-09 [facility] -TRIMETH 00:00: n OPRIM 00 SULFAMET DRUG Active 2023-0 MD [place] 1-09 [facility] -TRIMETH 00:00: n OPRIM 00 SULFAMET DRUG Active 2023-0 MD [place] 1-09 [facility] -TRIMETH 00:00: n OPRIM 00 SULFAMET DRUG Active 2023-0 MD [place] 1-09 [facility] -TRIMETH 00:00: n OPRIM 00 SULFAMET DRUG Active 3-0 MD [place] 1-09 [facility] -TRIMETH 00:00: n OPRIM 00 SULFAMET DRUG Active 2023-0 MD [place] 1-09 [facility] -TRIMETH 00:00: n OPRIM 00 SULFAMET DRUG Active 3-0 MD [place] 1-09 [facility] -TRIMETH 00:00: n OPRIM 00 SULFAMET DRUG Active 3-0 MD [place] 1-09 Anders[facility] -TRIMETH 00:00: n OPRIM 00 SULFAMET DRUG Active 3-0 MD [place] 1-09 [facility] -TRIMETH 00:00: n OPRIM 00 SULFAMET DRUG Active 2023-0 MD [place] 1-09 Anders[facility] -TRIMETH 00:00: n OPRIM 00 SULFAMET DRUG Active 3-0 MD [place] 1-09 [facility] -TRIMETH 00:00: n OPRIM 00 SULFAMET DRUG Active 2023-0 MD [place] 1-09 Anders[facility] -TRIMETH 00:00: n OPRIM 00 SULFAMET DRUG Active 2023-0 MD [place] 1-09 Anders[facility] -TRIMETH 00:00: n OPRIM 00 SULFAMET DRUG Active 2023-0 MD [place] 1-09 [facility] -TRIMETH 00:00: n OPRIM 00 SULFAMET DRUG Active 2023-0 MD [place] 1-09 Anders[facility] -TRIMETH 00:00: n OPRIM 00 SULFAMET DRUG Active 2023-0 MD [place] 1-09 Anders[facility] -TRIMETH 00:00: n OPRIM 00 SULFAMET DRUG Active 2023-0 MD [place] 1-09 Anders[facility] -TRIMETH 00:00: n OPRIM 00 SULFAMET DRUG Active 2023-0 MD [place] 1-09 Anders[facility] -TRIMETH 00:00: n OPRIM 00 SULFAMET DRUG Active 2023-0 MD [place] 1-09 Anders[facility] -TRIMETH 00:00: n OPRIM 00 SULFAMET DRUG Active 2023-0 MD [place] 1-09 Anders[facility] -TRIMETH 00:00: n OPRIM 00 SULFAMET DRUG Active 2023-0 MD [place] 1-09 [facility] -TRIMETH 00:00: n OPRIM 00 SULFAMET DRUG Active 2023-0 MD [place] 1-09 Anders[facility] -TRIMETH 00:00: n OPRIM 00 SULFAMET DRUG Active 2023-0 MD [place] 1-09 [facility] -TRIMETH 00:00: n OPRIM 00 SULFAMET DRUG Active 3-0 MD [place] 1-09 [facility] -TRIMETH 00:00: n OPRIM 00 SULFAMET DRUG Active 3-0 MD [place] 1-09 [facility] -TRIMETH 00:00: n OPRIM 00 SULFAMET DRUG Active 3-0 MD [place] 1-09 [facility] -TRIMETH 00:00: n OPRIM 00 SULFAMET DRUG Active 2023-0 MD [place] 1-09 [facility] -TRIMETH 00:00: n OPRIM 00 SULFAMET DRUG Active 2023-0 MD [place] 1-09 Anders[facility] -TRIMETH 00:00: n OPRIM 00 SULFAMET DRUG Active 2023-0 MD [place] 1-09 Anders[facility] -TRIMETH 00:00: n OPRIM 00 SULFAMET DRUG Active 2023-0 MD [place] 1-09 Anders[facility] -TRIMETH 00:00: n OPRIM 00 SULFAMET DRUG Active 2023-0 MD [place] 1-09 Anders[facility] -TRIMETH 00:00: n OPRIM 00 SULFAMET DRUG Active 2023-0 MD [place] 1-09 Anders[facility] -TRIMETH 00:00: n OPRIM 00 SULFAMET DRUG Active 2023-0 MD [place] 1-09 Anders[facility] -TRIMETH 00:00: n OPRIM 00 SULFAMET DRUG Active 2023-0 MD [place] 1-09 Anders[facility] -TRIMETH 00:00: n OPRIM 00 SULFAMET DRUG Active 2023-0 MD [place] 1-09 [facility] -TRIMETH 00:00: n OPRIM 00 SULFAMET DRUG Active 2023-0 MD [place] 1-09 [facility] -TRIMETH 00:00: n OPRIM 00 SULFAMET DRUG Active 3-0 MD [place] 1-09 [facility] -TRIMETH 00:00: n OPRIM 00 SULFAMET DRUG Active 2023-0 MD [place] 1-09 [facility] -TRIMETH 00:00: n OPRIM 00 SULFAMET DRUG Active 3-0 MD [place] 1-09 [facility] -TRIMETH 00:00: n OPRIM 00 SULFAMET DRUG Active 2023-0 MD [place] 1-09 [facility] -TRIMETH 00:00: n OPRIM 00 SULFAMET DRUG Active 3-0 MD [place] 1-09 [facility] -TRIMETH 00:00: n OPRIM 00 SULFAMET DRUG Active 3-0 MD [place] 1-09 [facility] -TRIMETH 00:00: n OPRIM 00 SULFAMET DRUG Active 3-0 MD [place] 1-09 [facility] -TRIMETH 00:00: n OPRIM 00 SULFAMET DRUG Active 3-0 MD [place] 1-09 [facility] -TRIMETH 00:00: n OPRIM 00 SULFAMET DRUG Active 2023-0 MD [place] 1-09 [facility] -TRIMETH 00:00: n OPRIM 00 SULFAMET DRUG Active 3-0 MD [place] 1-09 [facility] -TRIMETH 00:00: n OPRIM 00 SULFAMET DRUG Active 2023-0 MD [place] 1-09 [facility] -TRIMETH 00:00: n OPRIM 00 SULFAMET DRUG Active 2023-0 MD [place] 1-09 [facility] -TRIMETH 00:00: n OPRIM 00 SULFAMET DRUG Active 2023-0 MD [place] 1-09 [facility] -TRIMETH 00:00: n OPRIM 00 SULFAMET DRUG Active 2023-0 MD [place] 1-09 [facility] -TRIMETH 00:00: n OPRIM 00 SULFAMET DRUG Active 2023-0 MD [place] 1-09 [facility] -TRIMETH 00:00: n OPRIM 00 SULFAMET DRUG Active 2023-0 MD [place] 1-09 [facility] -TRIMETH 00:00: n OPRIM 00 SULFAMET DRUG Active 2023-0 MD [place] 1-09 [facility] -TRIMETH 00:00: n OPRIM 00 SULFAMET DRUG Active 2023-0 MD [place] 1-09 [facility] -TRIMETH 00:00: n OPRIM 00 SULFAMET DRUG Active 2023-0 MD [place] 1-09 [facility] -TRIMETH 00:00: n OPRIM 00 SULFAMET DRUG Active 3-0 MD [place] 1-09 [facility] -TRIMETH 00:00: n OPRIM 00 SULFAMET DRUG Active 3-0 MD [place] 1-09 [facility] -TRIMETH 00:00: n OPRIM 00 SULFAMET DRUG Active 2023-0 MD [place] 1-09 [facility] -TRIMETH 00:00: n OPRIM 00 SULFAMET DRUG Active 3-0 MD [place] 1-09 [facility] -TRIMETH 00:00: n OPRIM 00 SULFAMET DRUG Active 3-0 MD [place] 1-09 [facility] -TRIMETH 00:00: n OPRIM 00 SULFAMET DRUG Active 3-0 MD [place] 1-09 [facility] -TRIMETH 00:00: n OPRIM 00 SULFAMET DRUG Active 2023-0 MD [place] 1-09 [facility] -TRIMETH 00:00: n OPRIM 00 SULFAMET DRUG Active 2023-0 MD [place] 1-09 Anders[facility] -TRIMETH 00:00: n OPRIM 00 SULFAMET DRUG Active 2023-0 MD [place] 1-09 [facility] -TRIMETH 00:00: n OPRIM 00 SULFAMET DRUG Active 2023-0 MD [place] 1-09 [facility] -TRIMETH 00:00: n OPRIM 00 SULFAMET DRUG Active 2023-0 MD [place] 1-09 [facility] -TRIMETH 00:00: n OPRIM 00 SULFAMET DRUG Active 2023-0 MD [place] 1-09 [facility] -TRIMETH 00:00: n OPRIM 00 SULFAMET DRUG Active 2023-0 MD [place] 1-09 [facility] -TRIMETH 00:00: n OPRIM 00 SULFAMET DRUG Active 2023-0 MD [place] 1-09 [facility] -TRIMETH 00:00: n OPRIM 00 SULFAMET DRUG Active 2023-0 MD [place] 1-09 [facility] -TRIMETH 00:00: n OPRIM 00 SULFAMET DRUG Active 2023-0 MD [place] 1-09 [facility] -TRIMETH 00:00: n OPRIM 00 SULFAMET DRUG Active 2023-0 MD [place] 1-09 [facility] -TRIMETH 00:00: n OPRIM 00 SULFAMET DRUG Active 2023-0 MD [place] 1-09 [facility] -TRIMETH 00:00: n OPRIM 00 SULFAMET DRUG Active 2023-0 MD [place] 1-09 [facility] -TRIMETH 00:00: n OPRIM 00 SULFAMET DRUG Active 2023-0 MD [place] 1-09 [facility] -TRIMETH 00:00: n OPRIM 00 SULFAMET DRUG Active 3-0 MD [place] 1-09 [facility] -TRIMETH 00:00: n OPRIM 00 SULFAMET DRUG Active 3-0 MD [place] 1-09 [facility] -TRIMETH 00:00: n OPRIM 00 SULFAMET DRUG Active 3-0 MD [place] 1-09 [facility] -TRIMETH 00:00: n OPRIM 00 SULFAMET DRUG Active 2023-0 MD [place] 1-09 [facility] -TRIMETH 00:00: n OPRIM 00 SULFAMET DRUG Active 2023-0 MD [place] 1-09 [facility] -TRIMETH 00:00: n OPRIM 00 SULFAMET DRUG Active 2023-0 MD [place] 1-09 [facility] -TRIMETH 00:00: n OPRIM 00 SULFAMET DRUG Active 2023-0 MD [place] 1-09 [facility] -TRIMETH 00:00: n OPRIM 00 SULFAMET DRUG Active 2023-0 MD [place] 1-09 [facility] -TRIMETH 00:00: n OPRIM 00 SULFAMET DRUG Active 2023-0 MD [place] 1-09 [facility] -TRIMETH 00:00: n OPRIM 00 SULFAMET DRUG Active 2023-0 MD [place] 1-09 [facility] -TRIMETH 00:00: n OPRIM 00 SULFAMET DRUG Active 2023-0 MD [place] 1-09 [facility] -TRIMETH 00:00: n OPRIM 00 SULFAMET DRUG Active 2023-0 MD [place] 1-09 [facility] -TRIMETH 00:00: n OPRIM 00 SULFAMET DRUG Active 2023-0 MD [place] 1-09 [facility] -TRIMETH 00:00: n OPRIM 00 SULFAMET DRUG Active 2023-0 MD [place] 1-09 [facility] -TRIMETH 00:00: n OPRIM 00 SULFAMET DRUG Active 2023-0 MD [place] 1-09 [facility] -TRIMETH 00:00: n OPRIM 00 SULFAMET DRUG Active 2023-0 MD [place] 1-09 [facility] -TRIMETH 00:00: n OPRIM 00 SULFAMET DRUG Active 2023-0 MD [place] 1-09 [facility] -TRIMETH 00:00: n OPRIM 00 SULFAMET DRUG Active 3-0 MD [place] 1-09 [facility] -TRIMETH 00:00: n OPRIM 00 SULFAMET DRUG Active 2023-0 MD [place] 1-09 [facility] -TRIMETH 00:00: n OPRIM 00 SULFAMET DRUG Active 2023-0 MD [place] 1-09 [facility] -TRIMETH 00:00: n OPRIM 00 SULFAMET DRUG Active 2023-0 MD [place] 1-09 [facility] -TRIMETH 00:00: n OPRIM 00 SULFAMET DRUG Active 2023-0 MD [place] 1-09 [facility] -TRIMETH 00:00: n OPRIM 00 SULFAMET DRUG Active 2023-0 MD [place] 1-09 [facility] -TRIMETH 00:00: n OPRIM 00 SULFAMET DRUG Active 2023-0 MD [place] 1-09 [facility] -TRIMETH 00:00: n OPRIM 00 SULFAMET DRUG Active 2023-0 MD [place] 1-09 [facility] -TRIMETH 00:00: n OPRIM 00 SULFAMET DRUG Active 2023-0 MD [place] 1-09 [facility] -TRIMETH 00:00: n OPRIM 00 SULFAMET DRUG Active 2023-0 MD [place] 1-09 Anders[facility] -TRIMETH 00:00: n OPRIM 00 SULFAMET DRUG Active 2023-0 MD [place] 1-09 [facility] -TRIMETH 00:00: n OPRIM 00 SULFAMET DRUG Active 2023-0 MD [place] 1-09 Anders[facility] -TRIMETH 00:00: n OPRIM 00 SULFAMET DRUG Active 2023-0 MD [place] 1-09 Anders[facility] -TRIMETH 00:00: n OPRIM 00 SULFAMET DRUG Active 3-0 MD [place] 1-09 Anders[facility] -TRIMETH 00:00: n OPRIM 00 SULFAMET DRUG Active 2023-0 MD [place] 1-09 Anders[facility] -TRIMETH 00:00: n OPRIM 00 SULFAMET DRUG Active 3-0 MD [place] 1-09 Anders[facility] -TRIMETH 00:00: n OPRIM 00 SULFAMET DRUG Active 2023-0 MD [place] 1-09 Anders[facility] -TRIMETH 00:00: n OPRIM 00 SULFAMET DRUG Active 3-0 MD [place] 1-09 Anders[facility] -TRIMETH 00:00: n OPRIM 00 SULFAMET DRUG Active 3-0 MD [place] 1-09 Anders[facility] -TRIMETH 00:00: n OPRIM 00 SULFAMET DRUG Active 3-0 MD [place] 1-09 [facility] -TRIMETH 00:00: n OPRIM 00 SULFAMET DRUG Active 3-0 MD [place] 1-09 Anders[facility] -TRIMETH 00:00: n OPRIM 00 SULFAMET DRUG Active 2023-0 MD [place] 1-09 [facility] -TRIMETH 00:00: n OPRIM 00 SULFAMET DRUG Active 3-0 MD [place] 1-09 Anders[facility] -TRIMETH 00:00: n OPRIM 00 SULFAMET DRUG Active 2023-0 MD [place] 1-09 Anderso -TRIMETH 00:00: n OPRIM 00 SULFAMET DRUG Active 2023-0 MD [place] 1-09 Anders[facility] -TRIMETH 00:00: n OPRIM 00 SULFAMET DRUG Active 2023-0 MD [place] 1-09 Anderso -TRIMETH 00:00: n OPRIM 00 SULFAMET DRUG Active 2023-0 MD [place] 1-09 Anders[facility] -TRIMETH 00:00: n OPRIM 00 SULFAMET DRUG Active 2023-0 MD [place] 1-09 Anders[facility] -TRIMETH 00:00: n OPRIM 00 SULFAMET DRUG Active 2023-0 MD [place] 1-09 Anders[facility] -TRIMETH 00:00: n OPRIM 00 SULFAMET DRUG Active 2023-0 MD [place] 1-09 Anders[facility] -TRIMETH 00:00: n OPRIM 00 SULFAMET DRUG Active 2023-0 MD [place] 1-09 Anderso -TRIMETH 00:00: n OPRIM 00 SULFAMET DRUG Active 2023-0 MD [place] 1-09 [facility] -TRIMETH 00:00: n OPRIM 00 SULFAMET DRUG Active 3-0 MD [place] 1-09 Anders[facility] -TRIMETH 00:00: n OPRIM 00 SULFAMET DRUG Active 3-0 MD [place] 1-09 Anders[facility] -TRIMETH 00:00: n OPRIM 00 SULFAMET DRUG Active 3-0 MD [place] 1-09 [facility] -TRIMETH 00:00: n OPRIM 00 SULFAMET DRUG Active 3-0 MD [place] 1-09 Anders[facility] -TRIMETH 00:00: n OPRIM 00 SULFAMET DRUG Active 3-0 MD [place] 1-09 Anders[facility] -TRIMETH 00:00: n OPRIM 00 SULFAMET DRUG Active 3-0 MD [place] 1-09 Anders[facility] -TRIMETH 00:00: n OPRIM 00 SULFAMET DRUG Active 3-0 MD [place] 1-09 [facility] -TRIMETH 00:00: n OPRIM 00 SULFAMET DRUG Active 3-0 MD [place] 1-09 [facility] -TRIMETH 00:00: n OPRIM 00 SULFAMET DRUG Active 2023-0 MD [place] 1-09 Anderso -TRIMETH 00:00: n OPRIM 00 SULFAMET DRUG Active 2023-0 MD [place] 1-09 Anders[facility] -TRIMETH 00:00: n OPRIM 00 SULFAMET DRUG Active 2023-0 MD [place] 1-09 Anders[facility] -TRIMETH 00:00: n OPRIM 00 SULFAMET DRUG Active 2023-0 MD [place] 1-09 Anders[facility] -TRIMETH 00:00: n OPRIM 00 SULFAMET DRUG Active 2023-0 MD [place] 1-09 Anders[facility] -TRIMETH 00:00: n OPRIM 00 SULFAMET DRUG Active 2023-0 MD [place] 1-09 Anders[facility] -TRIMETH 00:00: n OPRIM 00 SULFAMET DRUG Active 2023-0 MD [place] 1-09 Anders[facility] -TRIMETH 00:00: n OPRIM 00 SULFAMET DRUG Active 2023-0 MD [place] 1-09 Anderso -TRIMETH 00:00: n OPRIM 00 SULFAMET DRUG Active 3-0 MD [place] 1-09 Anders[facility] -TRIMETH 00:00: n OPRIM 00 SULFAMET DRUG Active 3-0 MD [place] 1-09 [facility] -TRIMETH 00:00: n OPRIM 00 SULFAMET DRUG Active 3-0 MD [place] 1-09 [facility] -TRIMETH 00:00: n OPRIM 00 SULFAMET DRUG Active 3-0 MD [place] 1-09 Anderso -TRIMETH 00:00: n OPRIM 00 SULFAMET DRUG Active 3-0 MD [place] 1-09 Anderso -TRIMETH 00:00: n OPRIM 00 SULFAMET DRUG Active 3-0 MD [place] 1-09 Anderso -TRIMETH 00:00: n OPRIM 00 SULFAMET DRUG Active 3-0 MD [place] 1-09 Anderso -TRIMETH 00:00: n OPRIM 00 SULFAMET DRUG Active 2023-0 MD [place] 1-09 Anderso -TRIMETH 00:00: n OPRIM 00 SULFAMET DRUG Active 3-0 MD [place] 1-09 Anderso -TRIMETH 00:00: n OPRIM 00 SULFAMET DRUG Active 2023-0 MD [place] 1-09 Anderso -TRIMETH 00:00: n OPRIM 00 SULFAMET DRUG Active 2023-0 MD [place] 1-09 Anderso -TRIMETH 00:00: n OPRIM 00 SULFAMET DRUG Active 2023-0 MD [place] 1-09 Anderso -TRIMETH 00:00: n OPRIM 00 SULFAMET DRUG Active 2023-0 MD [place] 1-09 Anderso -TRIMETH 00:00: n OPRIM 00 SULFAMET DRUG Active 2023-0 MD [place] 1-09 Anderso -TRIMETH 00:00: n OPRIM 00 SULFAMET DRUG Active 2023-0 MD [place] 1-09 Anderso -TRIMETH 00:00: n OPRIM 00 SULFAMET DRUG Active 2023-0 MD [place] 1-09 Anderso -TRIMETH 00:00: n OPRIM 00 SULFAMET DRUG Active 2023-0 MD [place] 1-09 Anderso -TRIMETH 00:00: n OPRIM 00 SULFAMET DRUG Active 2023-0 MD [place] 1-09 Anderso -TRIMETH 00:00: n OPRIM 00 SULFAMET DRUG Active 2023-0 MD [place] 1-09 Anderso -TRIMETH 00:00: n OPRIM 00 SULFAMET DRUG Active 2023-0 MD [place] 1-09 Anderso -TRIMETH 00:00: n OPRIM 00 SULFAMET DRUG Active 2023-0 MD [place] 1-09 Anderso -TRIMETH 00:00: n OPRIM 00 SULFAMET DRUG Active 3-0 MD [place] 1-09 Anderso -TRIMETH 00:00: n OPRIM 00 SULFAMET DRUG Active 3-0 MD [place] 1-09 Anderso -TRIMETH 00:00: n OPRIM 00 SULFAMET DRUG Active 3-0 MD [place] 1-09 Anderso -TRIMETH 00:00: n OPRIM 00 SULFAMET DRUG Active 2023-0 MD [place] 1-09 Anderso -TRIMETH 00:00: n OPRIM 00 SULFAMET DRUG Active 2023-0 MD [place] 1-09 Anderso -TRIMETH 00:00: n OPRIM 00 SULFAMET DRUG Active 2023-0 MD [place] 1-09 Anderso -TRIMETH 00:00: n OPRIM 00 SULFAMET DRUG Active 2023-0 MD [place] 1-09 Anderso -TRIMETH 00:00: n OPRIM 00 SULFAMET DRUG Active 2023-0 MD [place] 1-09 Anderso -TRIMETH 00:00: n OPRIM 00 SULFAMET DRUG Active 2023-0 MD [place] 1-09 Anderso -TRIMETH 00:00: n OPRIM 00 SULFAMET DRUG Active 2023-0 MD [place] 1-09 Anderso -TRIMETH 00:00: n OPRIM 00 SULFAMET DRUG Active 2023-0 MD [place] 1-09 Anderso -TRIMETH 00:00: n OPRIM 00 SULFAMET DRUG Active 2023-0 MD [place] 1-09 Anderso -TRIMETH 00:00: n OPRIM 00 SULFAMET DRUG Active 2023-0 MD [place] 1-09 Anderso -TRIMETH 00:00: n OPRIM 00 SULFAMET DRUG Active 2023-0 MD [place] 1-09 Anderso -TRIMETH 00:00: n OPRIM 00 SULFAMET DRUG Active 2023-0 MD [place] 1-09 Anderso -TRIMETH 00:00: n OPRIM 00 SULFAMET DRUG Active 3-0 MD [place] 1-09 Anderso -TRIMETH 00:00: n OPRIM 00 SULFAMET DRUG Active 2023-0 MD [place] 1-09 Anderso -TRIMETH 00:00: n OPRIM 00 SULFAMET DRUG Active 3-0 MD [place] 1-09 Anderso -TRIMETH 00:00: n OPRIM 00 SULFAMET DRUG Active 3-0 MD [place] 1-09 Anderso -TRIMETH 00:00: n OPRIM 00 SULFAMET DRUG Active 3-0 MD [place] 1-09 Anderso -TRIMETH 00:00: n OPRIM 00 SULFAMET DRUG Active 3-0 MD [place] 1-09 Anderso -TRIMETH 00:00: n OPRIM 00 SULFAMET DRUG Active 2023-0 MD [place] 1-09 Anderso -TRIMETH 00:00: n OPRIM 00 SULFAMET DRUG Active 3-0 MD [place] 1-09 Anderso -TRIMETH 00:00: n OPRIM 00 SULFAMET DRUG Active 2023-0 MD [place] 1-09 Anderso -TRIMETH 00:00: n OPRIM 00 SULFAMET DRUG Active 2023-0 MD [place] 1-09 Anderso -TRIMETH 00:00: n OPRIM 00 SULFAMET DRUG Active 2023-0 MD [place] 1-09 Anderso -TRIMETH 00:00: n OPRIM 00 SULFAMET DRUG Active 2023-0 MD [place] 1-09 Anderso -TRIMETH 00:00: n OPRIM 00 SULFAMET DRUG Active 2023-0 MD [place] 1-09 Anderso -TRIMETH 00:00: n OPRIM 00 SULFAMET DRUG Active 3-0 MD [place] 1-09 Anderso -TRIMETH 00:00: n OPRIM 00 SULFAMET DRUG Active 2023-0 MD [place] 1-09 Anderso -TRIMETH 00:00: n OPRIM 00 SULFAMET DRUG Active 3-0 MD [place] 1-09 Anderso -TRIMETH 00:00: n OPRIM 00 SULFAMET DRUG Active 3-0 MD [place] 1-09 Anderso -TRIMETH 00:00: n OPRIM 00 SULFAMET DRUG Active 3-0 MD [place] 1-09 Anderso -TRIMETH 00:00: n OPRIM 00 SULFAMET DRUG Active 3-0 MD [place] 1-09 Anderso -TRIMETH 00:00: n OPRIM 00 SULFAMET DRUG Active 3-0 MD [place] 1-09 Anderso -TRIMETH 00:00: n OPRIM 00 SULFAMET DRUG Active 3-0 MD [place] 1-09 Anderso -TRIMETH 00:00: n OPRIM 00 SULFAMET DRUG Active 3-0 MD [place] 1-09 Anderso -TRIMETH 00:00: n OPRIM 00 SULFAMET DRUG Active 3-0 MD [place] 1-09 Anderso -TRIMETH 00:00: n OPRIM 00 TREE AND DRUG Active Other 2021-11 MD SHRUB INGREDI 2-25 Anderso POLLEN 00:00: n 00 TREE AND DRUG Active Other 2021-11 MD SHRUB INGREDI 2-25 Anderso POLLEN 00:00: n 00 TREE AND DRUG Active Other 2021- MD SHRUB INGREDI 2-25 Anderso POLLEN 00:00: n 00 TREE AND DRUG Active Other 2021-11 MD SHRUB INGREDI 2-25 Anderso POLLEN 00:00: n 00 TREE AND DRUG Active Other 2021-11 MD SHRUB INGREDI 2-25 Anderso POLLEN 00:00: n 00 TREE AND DRUG Active Other 2021-11 MD SHRUB INGREDI 2-25 Anderso POLLEN 00:00: n 00 TREE AND DRUG Active Other 2021-11 MD SHRUB INGREDI 2-25 Anderso POLLEN 00:00: n 00 TREE AND DRUG Active Other 2021-11 MD SHRUB INGREDI 2-25 Anderso POLLEN 00:00: n 00 TREE AND DRUG Active Other 2021-11 MD SHRUB INGREDI 2-25 Anderso POLLEN 00:00: n 00 TREE AND DRUG Active Other 2021-11 MD SHRUB INGREDI 2-25 Anderso POLLEN 00:00: n 00 TREE AND DRUG Active Other 2021-11 MD SHRUB INGREDI 2-25 Anderso POLLEN 00:00: n 00 TREE AND DRUG Active Other 2021-11 MD SHRUB INGREDI 2-25 Anderso POLLEN 00:00: n 00 TREE AND DRUG Active Other 2021-11 MD SHRUB INGREDI 2-25 Anderso POLLEN 00:00: n 00 TREE AND DRUG Active Other 2021-11 MD SHRUB INGREDI 2-25 Anderso POLLEN 00:00: n 00 TREE AND DRUG Active Other 2021-11 MD SHRUB INGREDI 2-25 Anderso POLLEN 00:00: n 00 TREE AND DRUG Active Other 2021-11 MD SHRUB INGREDI 2-25 Anderso POLLEN 00:00: n 00 TREE AND DRUG Active Other 2021-11 MD SHRUB INGREDI 2-25 Anderso POLLEN 00:00: n 00 TREE AND DRUG Active Other 2021-11 MD SHRUB INGREDI 2-25 Anderso POLLEN 00:00: n 00 TREE AND DRUG Active Other 2021-11 MD SHRUB INGREDI 2-25 Anderso POLLEN 00:00: n 00 TREE AND DRUG Active Other 2021-11 MD SHRUB INGREDI 2-25 Anderso POLLEN 00:00: n 00 TREE AND DRUG Active Other 2021-11 MD SHRUB INGREDI 2-25 Anderso POLLEN 00:00: n 00 [employer] [employer] Active Other 2021-11 [facility]25 Anderso POLLEN 00:00: n 00 [employer] Active Other 2021-11 [facility]25 Anderso POLLEN 00:00: n 00 [employer] Active Other 2021-11 [facility] 2-25 Anderso POLLEN 00:00: n 00 [employer] Active Other 2021-11 [facility] 2-25 Anderso POLLEN 00:00: n 00 [employer] Active Other 2021-11 [facility] 2-25 Anderso POLLEN 00:00: n 00 [employer] Active Other 2021-11 [facility] 2-25 Anderso POLLEN 00:00: n 00 [employer] Active Other 2021-11 [facility] 2-25 Anderso POLLEN 00:00: n 00 [employer] Active Other 2021-11 [facility] 2-25 Anderso POLLEN 00:00: n 00 [employer] Active Other 2021-11 [facility] 2-25 Anderso POLLEN 00:00: n 00 [employer] Active Other 2021-11 [facility] 2-25 Anderso POLLEN 00:00: n 00 [employer] Active Other 2021-11 [facility] 2-25 Anderso POLLEN 00:00: n 00 [employer] Active Other 2021-11 [facility] 2-25 Anderso POLLEN 00:00: n 00 [employer] DR[employer] Active Other 2021-11 [facility] 2-25 Anderso POLLEN 00:00: n 00 [employer] Active Other 2021-11 [facility] 2-25 Anderso POLLEN 00:00: n 00 [employer] Active Other 2021-11 [facility] 2-25 Anderso POLLEN 00:00: n 00 [employer] DRUG Active Other 2021-11 [facility] 2-25 Anderso POLLEN 00:00: n 00 [employer] DR[employer] Active Other 2021-11 [facility] 2-25 Anderso POLLEN 00:00: n 00 [employer] DR[employer] Active Other 2021-11 [facility] 2-25 Anderso POLLEN 00:00: n 00 [employer] Active Other 2021-11 [facility] 2-25 Anderso POLLEN 00:00: n 00 [employer] Active Other 2021-11 [facility] 2-25 Anderso POLLEN 00:00: n 00 [employer] Active Other 2021-11 [facility] 2-25 Anderso POLLEN 00:00: n 00 [employer] Active Other 2021-11 [facility] 2-25 Anderso POLLEN 00:00: n 00 [employer] Active Other 2021-11 [facility] 2-25 Anderso POLLEN 00:00: n 00 [employer] Active Other 2021-11 [facility] 2-25 Anderso POLLEN 00:00: n 00 [employer] Active Other 2021-11 [facility] 2-25 Anderso POLLEN 00:00: n 00 [employer] Active Other 2021-11 [facility] 2-25 Anderso POLLEN 00:00: n 00 [employer] Active Other 2021-11 [facility] 2-25 Anderso POLLEN 00:00: n 00 [employer] Active Other 2021-11 [facility] 2-25 Anderso POLLEN 00:00: n 00 [employer] Active Other 2021-11 [facility] 2-25 Anderso POLLEN 00:00: n 00 [employer] Active Other 2021-11 [facility] 2-25 Anderso POLLEN 00:00: n 00 [employer] Active Other 2021-11 [facility] 2-25 Anderso POLLEN 00:00: n 00 [employer] Active Other 2021-11 [facility] 2-25 Anderso POLLEN 00:00: n 00 [employer] Active Other 2021-11 [facility] 2-25 Anderso POLLEN 00:00: n 00 [employer] Active Other 2021-11 [facility] 2-25 Anderso POLLEN 00:00: n 00 [employer] Active Other 2021-11 [facility] 2-25 Anderso POLLEN 00:00: n 00 [employer] Active Other 2021-11 [facility] 2-25 Anderso POLLEN 00:00: n 00 [employer] Active Other 2021-11 [facility] 2-25 Anderso POLLEN 00:00: n 00 [employer] Active Other 2021-11 [facility] 2-25 Anderso POLLEN 00:00: n 00 [employer] Active Other 2021-11 [facility] 2-25 Anderso POLLEN 00:00: n 00 [employer] Active Other 2021-11 [facility] 2-25 Anderso POLLEN 00:00: n 00 [employer] Active Other 2021-11 [facility] 2-25 Anderso POLLEN 00:00: n 00 [employer] Active Other 2021-11 [facility] 2-25 Anderso POLLEN 00:00: n 00 [employer] Active Other 2021-11 [facility] 2-25 Anderso POLLEN 00:00: n 00 [employer] Active Other 2021-11 [facility] 2-25 Anderso POLLEN 00:00: n 00 [employer] Active Other 2021-11 [facility] 2-25 Anderso POLLEN 00:00: n 00 [employer] Active Other 2021-11 [facility] 2-25 Anderso POLLEN 00:00: n 00 [employer] Active Other 2021-11 [facility] 2-25 Anderso POLLEN 00:00: n 00 [employer] DR[employer] Active Other 2021-11 [facility] 2-25 Anderso POLLEN 00:00: n 00 [employer] DR[employer] Active Other 2021-11 [facility] 2-25 Anderso POLLEN 00:00: n 00 [employer] DRUG Active Other 2021-11 [facility] 2-25 Anderso POLLEN 00:00: n 00 [employer] DR[employer] Active Other 2021-11 [facility] 2-25 Anderso POLLEN 00:00: n 00 [employer] DR[employer] Active Other 2021-11 [facility] 2-25 Anderso POLLEN 00:00: n 00 [employer] Active Other 2021-11 [facility] 2-25 Anderso POLLEN 00:00: n 00 [employer] Active Other 2021-11 [facility] 2-25 Anderso POLLEN 00:00: n 00 [employer] Active Other 2021-11 [facility] 2-25 Anderso POLLEN 00:00: n 00 [employer] AND DRUG Active Other 2021-11 [facility] 2-25 Anderso POLLEN 00:00: n 00 [employer] Active Other 2021-11 [facility] 2-25 Anderso POLLEN 00:00: n 00 [employer] DRUG Active Other 2021-11 [facility] 2-25 Anderso POLLEN 00:00: n 00 [employer] Active Other 2021-11 [facility] 2-25 Anderso POLLEN 00:00: n 00 [employer] DRUG Active Other 2021-11 [facility] 2-25 Anderso POLLEN 00:00: n 00 [employer] Active Other 2021-11 [facility] 2-25 Anderso POLLEN 00:00: n 00 [employer] Active Other 2021-11 [facility] 2-25 Anderso POLLEN 00:00: n 00 [employer] Active Other 2021-11 [facility] 2-25 Anderso POLLEN 00:00: n 00 [employer] Active Other 2021-11 [facility] 2-25 Anderso POLLEN 00:00: n 00 [employer] Active Other 2021-11 [facility] 2-25 Anderso POLLEN 00:00: n 00 [employer] Active Other 2021-11 [facility] 2-25 Anderso POLLEN 00:00: n 00 [employer] Active Other 2021-11 [facility] 2-25 Anderso POLLEN 00:00: n 00 [employer] Active Other 2021-11 [facility] 2-25 Anderso POLLEN 00:00: n 00 [employer] Active Other 2021-11 [facility] 2-25 Anderso POLLEN 00:00: n 00 [employer] Active Other 2021-11 [facility] 2-25 Anderso POLLEN 00:00: n 00 [employer] Active Other 2021-11 [facility] 2-25 Anderso POLLEN 00:00: n 00 [employer] Active Other 2021-11 [facility] 2-25 Anderso POLLEN 00:00: n 00 [employer] Active Other 2021-11 [facility] 2-25 Anderso POLLEN 00:00: n 00 [employer] Active Other 2021-11 [facility] 2-25 Anderso POLLEN 00:00: n 00 [employer] Active Other 2021-11 [facility] 2-25 Anderso POLLEN 00:00: n 00 [employer] Active Other 2021-11 [facility] 2-25 Anderso POLLEN 00:00: n 00 [employer] Active Other 2021-11 [facility] 2-25 Anderso POLLEN 00:00: n 00 [employer] Active Other 2021-11 [facility] 2-25 Anderso POLLEN 00:00: n 00 [employer] Active Other 2021-11 [facility] 2-25 Anderso POLLEN 00:00: n 00 [employer] Active Other 2021-11 [facility] 2-25 Anderso POLLEN 00:00: n 00 [employer] Active Other 2021-11 [facility] 2-25 Anderso POLLEN 00:00: n 00 [employer] Active Other 2021-11 [facility] 2-25 Anderso POLLEN 00:00: n 00 [employer] Active Other 2021-11 [facility] 2-25 Anderso POLLEN 00:00: n 00 [employer] Active Other 2021-11 [facility] 2-25 Anderso POLLEN 00:00: n 00 [employer] Active Other 2021-11 [facility] 2-25 Anderso POLLEN 00:00: n 00 [employer] Active Other 2021-11 [facility] 2-25 Anderso POLLEN 00:00: n 00 [employer] Active Other 2021-11 [facility] 2-25 Anderso POLLEN 00:00: n 00 [employer] Active Other 2021-11 [facility] 2-25 Anderso POLLEN 00:00: n 00 [employer] Active Other 2021-11 [facility] 2-25 Anderso POLLEN 00:00: n 00 [employer] Active Other 2021-11 [facility] 2-25 Anderso POLLEN 00:00: n 00 [employer] DR[employer] Active Other 2021-11 [facility] 2-25 Anderso POLLEN 00:00: n 00 [employer] DR[employer] Active Other 2021-11 [facility] 2-25 Anderso POLLEN 00:00: n 00 [employer] Active Other 2021-11 [facility] 2-25 Anderso POLLEN 00:00: n 00 [employer] Active Other 2021-11 [facility] 2-25 Anderso POLLEN 00:00: n 00 [employer] DR[employer] Active Other 2021-11 [facility] 2-25 Anderso POLLEN 00:00: n 00 [employer] Active Other 2021-11 [facility] 2-25 Anderso POLLEN 00:00: n 00 [employer] Active Other 2021-11 [facility] 2-25 Anderso POLLEN 00:00: n 00 [employer] Active Other 2021-11 [facility] 2-25 Anderso POLLEN 00:00: n 00 [employer] DR[employer] Active Other 2021-11 [facility] 2-25 Anderso POLLEN 00:00: n 00 [employer] DR[employer] Active Other 2021-11 [facility] 2-25 Anderso POLLEN 00:00: n 00 [employer] Active Other 2021-11 [facility] 2-25 Anderso POLLEN 00:00: n 00 [employer] DR[employer] Active Other 2021-11 [facility] 2-25 Anderso POLLEN 00:00: n 00 [employer] Active Other 2021-11 [facility] 2-25 Anderso POLLEN 00:00: n 00 [employer] Active Other 2021-11 [facility] 2-25 Anderso POLLEN 00:00: n 00 [employer] Active Other 2021-11 [facility] 2-25 Anderso POLLEN 00:00: n 00 [employer] DR[employer] Active Other 2021-11 [facility] 2-25 Anderso POLLEN 00:00: n 00 [employer] DR[employer] Active Other 2021-11 [facility] 2-25 Anderso POLLEN 00:00: n 00 [employer] AND DRUG Active Other 2021-11 [facility] 2-25 Anderso POLLEN 00:00: n 00 [employer] AND DRUG Active Other 2021-11 [facility] 2-25 Anderso POLLEN 00:00: n 00 [employer] DRUG Active Other 2021-11 [facility] 2-25 Anderso POLLEN 00:00: n 00 [employer] Active Other 2021-11 [facility] 2-25 Anderso POLLEN 00:00: n 00 [employer] DR[employer] Active Other 2021-11 [facility] 2-25 Anderso POLLEN 00:00: n 00 [employer] Active Other 2021-11 [facility] 2-25 Anderso POLLEN 00:00: n 00 [employer] Active Other 2021-11 [facility] 2-25 Anderso POLLEN 00:00: n 00 [employer] Active Other 2021-11 [facility] 2-25 Anderso POLLEN 00:00: n 00 [employer] Active Other 2022-1 [facility]-25 Anderso POLLEN 00:00: n 00 [employer] Active Other 2021-11 [facility] 2-25 Anderso POLLEN 00:00: n 00 [employer] Active Other 2021-11 [facility] 2-25 Anderso POLLEN 00:00: n 00 [employer] DR[employer] Active Other 2021-11 [facility] 2-25 Anderso POLLEN 00:00: n 00 [employer] Active Other 2021-11 [facility] 2-25 Anderso POLLEN 00:00: n 00 [employer] DR[employer] Active Other 2021-11 [facility] 2-25 Anderso POLLEN 00:00: n 00 [employer] DR[employer] Active Other 2021-11 [facility] 2-25 Anderso POLLEN 00:00: n 00 [employer] DR[employer] Active Other 2021-11 [facility] 2-25 Anderso POLLEN 00:00: n 00 [employer] DR[employer] Active Other 2021-11 [facility] 2-25 Anderso POLLEN 00:00: n 00 [employer] DR[employer] Active Other 2021-11 [facility] 2-25 Anderso POLLEN 00:00: n 00 [employer] DRUG Active Other 2021-11 [facility] 2-25 Anderso POLLEN 00:00: n 00 [employer] DR[employer] Active Other 2021-11 [facility] 2-25 Anderso POLLEN 00:00: n 00 [employer] Active Other 2021-11 [facility] 2-25 Anderso POLLEN 00:00: n 00 [employer] DR[employer] Active Other 2021-11 [facility] 2-25 Anderso POLLEN 00:00: n 00 [employer] DR[employer] Active Other 2021-11 [facility] 2-25 Anderso POLLEN 00:00: n 00 [employer] DR[employer] Active Other 2021-11 [facility] 2-25 Anderso POLLEN 00:00: n 00 [employer] DR[employer] Active Other 2021-11 [facility] 2-25 Anderso POLLEN 00:00: n 00 [employer] DR[employer] Active Other 2021-11 [facility] 2-25 Anderso POLLEN 00:00: n 00 [employer] DRUG Active Other 2021-11 [facility] 2-25 Anderso POLLEN 00:00: n 00 T[employer] DRUG Active Other 2021-11 [facility] 2-25 Anderso POLLEN 00:00: n 00 [employer] DRUG Active Other 2021-11 [facility] 2-25 Anderso POLLEN 00:00: n 00 [employer] DRUG Active Other 2021-11 [facility] 2-25 Anderso POLLEN 00:00: n 00 T[employer] DRUG Active Other 2021-11 [facility] 2-25 Anderso POLLEN 00:00: n 00 [employer] DRUG Active Other 2021-11 [facility] 2-25 Anderso POLLEN 00:00: n 00 [employer] DR[employer] Active Other 2021-11 [facility] 2-25 Anderso POLLEN 00:00: n 00 T[employer] AND DRUG Active Other 2021-11 [facility] 2-25 Anderso POLLEN 00:00: n 00 T[employer] AND DRUG Active Other 2021-11 [facility] 2-25 Anderso POLLEN 00:00: n 00 T[employer] AND DRUG Active Other 2021-11 [facility] 2-25 Anderso POLLEN 00:00: n 00 T[employer] DRUG Active Other 2021-11 [facility] 2-25 Anderso POLLEN 00:00: n 00 T[employer] AND DRUG Active Other 2021-11 [facility] 2-25 Anderso POLLEN 00:00: n 00 T[employer] DRUG Active Other 2021-11 [facility] 2-25 Anderso POLLEN 00:00: n 00 T[employer] AND DRUG Active Other 2021-11 [facility] 2-25 Anderso POLLEN 00:00: n 00 T[employer] AND DRUG Active Other 2021-11 [facility] 2-25 Anderso POLLEN 00:00: n 00 T[employer] AND DRUG Active Other 2021-11 [facility] 2-25 Anderso POLLEN 00:00: n 00 T[employer] AND DRUG Active Other 2021-11 [facility] 2-25 Anderso POLLEN 00:00: n 00 T[employer] AND DRUG Active Other 2021-11 [facility] 2-25 Anderso POLLEN 00:00: n 00 T[employer] AND DRUG Active Other 2021-11 [facility] 2-25 Anderso POLLEN 00:00: n 00 T[employer] AND DRUG Active Other 2021-11 [facility] 2-25 Anderso POLLEN 00:00: n 00 T[employer] AND DRUG Active Other 2021-11 [facility] 2-25 Anderso POLLEN 00:00: n 00 T[employer] AND DRUG Active Other 2021-11 [facility] 2-25 Anderso POLLEN 00:00: n 00 T[employer] AND DRUG Active Other 2021-11 [facility] 2-25 Anderso POLLEN 00:00: n 00 T[employer] DRUG Active Other 2021-11 [facility] 2-25 Anderso POLLEN 00:00: n 00 Tree And Drug Active Other (See 2021-11 Mild tree [facility]rub Allergy Comments) 2-25 pollen ity of Pollen 00:00: allergy [place] 00 per MD patient Fatuma wynne with [facility] Active Other 2021-11 [facility]-25 Anderso POLLEN 00:00: n 00 T[employer] DRUG Active Other 2021-11 [facility] 2-25 Anderso POLLEN 00:00: n 00 TREE AND DRUG Active Other 2021-11 [facility] 2-25 Anderso POLLEN 00:00: n 00 TREE AND DRUG Active Other 2021-11 [facility] 2-25 Anderso POLLEN 00:00: n 00 T[employer] AND DRUG Active Other 2021-11 [facility] 2-25 Anderso POLLEN 00:00: n 00 TREE AND DRUG Active Other 2021-11 [facility] 2-25 Anderso POLLEN 00:00: n 00 TREE AND DRUG Active Other 2021-11 [facility] 2-25 Anderso POLLEN 00:00: n 00 TREE AND DRUG Active Other 2021-11 [facility] 2-25 Anderso POLLEN 00:00: n 00 TREE AND DRUG Active Other 2021-11 [facility] 2-25 Anderso POLLEN 00:00: n 00 TREE AND DRUG Active Other 2021-11 [facility] 2-25 Anderso POLLEN 00:00: n 00 TREE AND DRUG Active Other 2021-11 [facility] 2-25 Anderso POLLEN 00:00: n 00 TREE AND DRUG Active Other 2021-11 [facility] 2-25 Anderso POLLEN 00:00: n 00 T[employer] AND DRUG Active Other 2021-11 [facility] 2-25 Anderso POLLEN 00:00: n 00 TREE AND DRUG Active Other 2021-11 [facility] 2-25 Anderso POLLEN 00:00: n 00 TREE AND DRUG Active Other 2021-11 [facility] 2-25 Anderso POLLEN 00:00: n 00 TREE AND DRUG Active Other 2021-11 [facility] 2-25 Anderso POLLEN 00:00: n 00 TREE AND DRUG Active Other 2021-11 [facility] 2-25 Anderso POLLEN 00:00: n 00 TREE AND DRUG Active Other 2021-11 [facility] 2-25 Anderso POLLEN 00:00: n 00 TREE AND DRUG Active Other 2021-11 [facility] 2-25 Anderso POLLEN 00:00: n 00 TREE AND DRUG Active Other 2021-11 [facility] 2-25 Anderso POLLEN 00:00: n 00 TREE AND DRUG Active Other 2021-11 [facility] 2-25 Anderso POLLEN 00:00: n 00 TREE AND DRUG Active Other 2021-11 [facility] 2-25 Anderso POLLEN 00:00: n 00 TREE AND DRUG Active Other 2021-11 [facility] 2-25 Anderso POLLEN 00:00: n 00 TREE AND DRUG Active Other 2021-11 [facility] 2-25 Anderso POLLEN 00:00: n 00 TREE AND DRUG Active Other 2021-11 [facility] 2-25 Anderso POLLEN 00:00: n 00 T[employer] AND DRUG Active Other 2021-11 [facility] 2-25 Anderso POLLEN 00:00: n 00 TREE AND DRUG Active Other 2021-11 [facility] 2-25 Anderso POLLEN 00:00: n 00 T[employer] AND DRUG Active Other 2021-11 [facility] 2-25 Anderso POLLEN 00:00: n 00 T[employer] AND DRUG Active Other 2021-11 [facility] 2-25 Anderso POLLEN 00:00: n 00 TREE AND DRUG Active Other 2021-11 [facility] 2-25 Anderso POLLEN 00:00: n 00 TREE AND DRUG Active Other 2021-11 [facility] 2-25 Anderso POLLEN 00:00: n 00 T[employer] AND DRUG Active Other 2021-11 [facility] 2-25 Anderso POLLEN 00:00: n 00 TREE AND DRUG Active Other 2021-11 [facility] 2-25 Anderso POLLEN 00:00: n 00 TREE AND DRUG Active Other 2021-11 [facility] 2-25 Anderso POLLEN 00:00: n 00 TREE AND DRUG Active Other 2021-11 [facility] 2-25 Anderso POLLEN 00:00: n 00 TREE AND DRUG Active Other 2021-11 [facility] 2-25 Anderso POLLEN 00:00: n 00 TREE AND DRUG Active Other 2021-11 [facility] 2-25 Anderso POLLEN 00:00: n 00 TREE AND DRUG Active Other 2021-11 [facility] 2-25 Anderso POLLEN 00:00: n 00 TREE AND DRUG Active Other 2021-11 [facility] 2-25 Anderso POLLEN 00:00: n 00 TREE AND DRUG Active Other 2021-11 [facility] 2-25 Anderso POLLEN 00:00: n 00 TREE AND DRUG Active Other 2021-11 [facility] 2-25 Anderso POLLEN 00:00: n 00 TREE AND DRUG Active Other 2021-11 [facility] 2-25 Anderso POLLEN 00:00: n 00 TREE AND DRUG Active Other 2021-11 [facility] 2-25 Anderso POLLEN 00:00: n 00 TREE AND DRUG Active Other 2021-11 [facility] 2-25 Anderso POLLEN 00:00: n 00 TREE AND DRUG Active Other 2021-11 [facility] 2-25 Anderso POLLEN 00:00: n 00 TREE AND DRUG Active Other 2021-11 [facility] 2-25 Anderso POLLEN 00:00: n 00 TREE AND DRUG Active Other 2021-11 [facility] 2-25 Anderso POLLEN 00:00: n 00 TREE AND DRUG Active Other 2021-11 [facility] 2-25 Anderso POLLEN 00:00: n 00 TREE AND DRUG Active Other 2021-11 [facility] 2-25 Anderso POLLEN 00:00: n 00 TREE AND DRUG Active Other 2021-11 [facility] 2-25 Anderso POLLEN 00:00: n 00 TREE AND DRUG Active Other 2021-11 [facility] 2-25 Anderso POLLEN 00:00: n 00 TREE AND DRUG Active Other 2021-11 [facility] 2-25 Anderso POLLEN 00:00: n 00 TREE AND DRUG Active Other 2021-11 [facility] 2-25 Anderso POLLEN 00:00: n 00 TREE AND DRUG Active Other 2021-11 [facility] 2-25 Anderso POLLEN 00:00: n 00 TREE AND DRUG Active Other 2021-11 [facility] 2-25 Anderso POLLEN 00:00: n 00 TREE AND DRUG Active Other 2021-11 [facility] 2-25 Anderso POLLEN 00:00: n 00 TREE AND DRUG Active Other 2021-11 [facility] 2-25 Anderso POLLEN 00:00: n 00 TREE AND DRUG Active Other 2021-11 [facility] 2-25 Anderso POLLEN 00:00: n 00 TREE AND DRUG Active Other 2021-11 [facility] 2-25 Anderso POLLEN 00:00: n 00 TREE AND DRUG Active Other 2021-11 [facility] 2-25 Anderso POLLEN 00:00: n 00 TREE AND DRUG Active Other 2021-11 [facility] 2-25 Anderso POLLEN 00:00: n 00 TREE AND DRUG Active Other 2021-11 [facility] 2-25 Anderso POLLEN 00:00: n 00 TREE AND DRUG Active Other 2021-11 [facility] 2-25 Anderso POLLEN 00:00: n 00 TREE AND DRUG Active Other 2021-11 [facility] 2-25 Anderso POLLEN 00:00: n 00 TREE AND DRUG Active Other 2021-11 [facility] 2-25 Anderso POLLEN 00:00: n 00 TREE AND DRUG Active Other 2021-11 [facility] 2-25 Anderso POLLEN 00:00: n 00 TREE AND DRUG Active Other 2021-11 [facility] 2-25 Anderso POLLEN 00:00: n 00 TREE AND DRUG Active Other 2021-11 [facility] 2-25 Anderso POLLEN 00:00: n 00 TREE AND DRUG Active Other 2021-11 [facility] 2-25 Anderso POLLEN 00:00: n 00 TREE AND DRUG Active Other 2021-11 [facility] 2-25 Anderso POLLEN 00:00: n 00 TREE AND DRUG Active Other 2021-11 [facility] 2-25 Anderso POLLEN 00:00: n 00 TREE AND DRUG Active Other 2021-11 [facility] 2-25 Anderso POLLEN 00:00: n 00 TREE AND DRUG Active Other 2021-11 [facility] 2-25 Anderso POLLEN 00:00: n 00 TREE AND DRUG Active Other 2021-11 [facility] 2-25 Anderso POLLEN 00:00: n 00 TREE AND DRUG Active Other 2021-11 [facility] 2-25 Anderso POLLEN 00:00: n 00 TREE AND DRUG Active Other 2021-11 [facility] 2-25 Anderso POLLEN 00:00: n 00 TREE AND DRUG Active Other 2021-11 [facility] 2-25 Anderso POLLEN 00:00: n 00 TREE AND DRUG Active Other 2021-11 [facility] 2-25 Anderso POLLEN 00:00: n 00 TREE AND DRUG Active Other 2021-11 [facility] 2-25 Anderso POLLEN 00:00: n 00 TREE AND DRUG Active Other 2021-11 [facility] 2-25 Anderso POLLEN 00:00: n 00 TREE AND DRUG Active Other 2021-11 [facility] 2-25 Anderso POLLEN 00:00: n 00 TREE AND DRUG Active Other 2021-11 [facility] 2-25 Anderso POLLEN 00:00: n 00 TREE AND DRUG Active Other 2021-11 [facility] 2-25 Anderso POLLEN 00:00: n 00 TREE AND DRUG Active Other 2021-11 [facility] 2-25 Anderso POLLEN 00:00: n 00 TREE AND DRUG Active Other 2021-11 [facility] 2-25 Anderso POLLEN 00:00: n 00 TREE AND DRUG Active Other 2021-11 [facility] 2-25 Anderso POLLEN 00:00: n 00 TREE AND DRUG Active Other 2021-11 [facility] 2-25 Anderso POLLEN 00:00: n 00 TREE AND DRUG Active Other 2021-11 [facility] 2-25 Anderso POLLEN 00:00: n 00 TREE AND DRUG Active Other 2021-11 [facility] 2-25 Anderso POLLEN 00:00: n 00 TREE AND DRUG Active Other 2021-11 [facility] 2-25 Anderso POLLEN 00:00: n 00 TREE AND DRUG Active Other 2021-11 [facility] 2-25 Anderso POLLEN 00:00: n 00 TREE AND DRUG Active Other 2021-11 [facility] 2-25 Anderso POLLEN 00:00: n 00 TREE AND DRUG Active Other 2021-11 [facility] 2-25 Anderso POLLEN 00:00: n 00 TREE AND DRUG Active Other 2021-11 [facility] 2-25 Anderso POLLEN 00:00: n 00 [employer] Active Other 2021-11 [facility] 2-25 Anderso POLLEN 00:00: n 00 [employer] Active Other 2021-11 [facility] 2-25 Anderso POLLEN 00:00: n 00 [employer] Active Other 2021-11 [facility] 2-25 Anderso POLLEN 00:00: n 00 [employer] Active Other 2021-11 [facility] 2-25 Anderso POLLEN 00:00: n 00 [employer] Active Other 2021-11 [facility] 2-25 Anderso POLLEN 00:00: n 00 [employer] Active Other 2021-11 [facility] 2-25 Anderso POLLEN 00:00: n 00 [employer] Active Other 2021-11 [facility] 2-25 Anderso POLLEN 00:00: n 00 [employer] Active Other 2021-11 [facility] 2-25 Anderso POLLEN 00:00: n 00 [employer] Active Other 2021-11 [facility] 2-25 Anderso POLLEN 00:00: n 00 [employer] Active Other 2021-11 [facility] 2-25 Anderso POLLEN 00:00: n 00 [employer] Active Other 2021-11 [facility] 2-25 Anderso POLLEN 00:00: n 00 [employer] Active Other 2021-11 [facility] 2-25 Anderso POLLEN 00:00: n 00 [employer] Active Other 2021-11 [facility] 2-25 Anderso POLLEN 00:00: n 00 [employer] Active Other 2021-11 [facility] 2-25 Anderso POLLEN 00:00: n 00 [employer] Active Other 2021-11 [facility] 2-25 Anderso POLLEN 00:00: n 00 [employer] Active Other 2021-11 [facility] 2-25 Anderso POLLEN 00:00: n 00 [employer] Active Other 2021-11 [facility] 2-25 Anderso POLLEN 00:00: n 00 [employer] Active Other 2021-11 [facility] 2-25 Anderso POLLEN 00:00: n 00 [employer] Active Other 2021-11 [facility] 2-25 Anderso POLLEN 00:00: n 00 [employer] Active Other 2021-11 [facility] 2-25 Anderso POLLEN 00:00: n 00 [employer] Active Other 2021-11 [facility] 2-25 Anderso POLLEN 00:00: n 00 [employer] Active Other 2021-11 [facility] 2-25 Anderso POLLEN 00:00: n 00 [employer] Active Other 2021-11 [facility] 2-25 Anderso POLLEN 00:00: n 00 [employer] Active Other 2021-11 [facility] 2-25 Anderso POLLEN 00:00: n 00 [employer] Active Other 2021-11 [facility] 2-25 Anderso POLLEN 00:00: n 00 [employer] Active Other 2021-11 [facility] 2-25 Anderso POLLEN 00:00: n 00 [employer] Active Other 2021-11 [facility] 2-25 Anderso POLLEN 00:00: n 00 [employer] Active Other 2021-11 [facility] 2-25 Anderso POLLEN 00:00: n 00 [employer] Active Other 2021-11 [facility] 2-25 Anderso POLLEN 00:00: n 00 [employer] Active Other 2021-11 [facility] 2-25 Anderso POLLEN 00:00: n 00 [employer] Active Other 2021-11 [facility] 2-25 Anderso POLLEN 00:00: n 00 [employer] Active Other 2021-11 [facility] 2-25 Anderso POLLEN 00:00: n 00 [employer] Active Other 2021-11 [facility]25 Anders[facility] POLLEN 00:00: n 00 TREE AND DRUG Active Other 2021-11 [facility]25 Anderso POLLEN 00:00: n 00 T[employer] DRUG Active Other 2021-11 [facility] 2-25 Anderso POLLEN 00:00: n 00 TREE AND DRUG Active Other 2021-11 [facility] 2-25 Anderso POLLEN 00:00: n 00 TREE AND DRUG Active Other 2021-11 [facility] 2-25 Anderso POLLEN 00:00: n 00 TREE AND DRUG Active Other 2021-11 [facility] 2-25 Anderso POLLEN 00:00: n 00 TREE AND DRUG Active Other 2021-11 [facility] 2-25 Anderso POLLEN 00:00: n 00 TREE AND DRUG Active Other 2021-11 [facility] 2-25 Anderso POLLEN 00:00: n 00 TREE AND DRUG Active Other 2021-11 [facility] 2-25 Anderso POLLEN 00:00: n 00 TREE AND DRUG Active Other 2021-11 [facility] 2-25 Anderso POLLEN 00:00: n 00 TREE AND DRUG Active Other 2021-11 [facility] 2-25 Anderso POLLEN 00:00: n 00 TREE AND DRUG Active Other 2021-11 [facility] 2-25 Anderso POLLEN 00:00: n 00 TREE AND DRUG Active Other 2021-11 [facility] 2-25 Anderso POLLEN 00:00: n 00 TREE AND DRUG Active Other 2021-11 [facility] 2-25 Anderso POLLEN 00:00: n 00 TREE AND DRUG Active Other 2021-11 [facility] 2-25 Anderso POLLEN 00:00: n 00 TREE AND DRUG Active Other 2021-11 [facility] 2-25 Anderso POLLEN 00:00: n 00 TREE AND DRUG Active Other 2021-11 [facility] 2-25 Anderso POLLEN 00:00: n 00 TREE AND DRUG Active Other 2021-11 [facility] 2-25 Anderso POLLEN 00:00: n 00 TREE AND DRUG Active Other 2021-11 [facility] 2-25 Anderso POLLEN 00:00: n 00 TREE AND DRUG Active Other 2021-11 [facility] 2-25 Anderso POLLEN 00:00: n 00 TREE AND DRUG Active Other 2021-11 [facility] 2-25 Anderso POLLEN 00:00: n 00 TREE AND DRUG Active Other 2021-11 [facility] 2-25 Anderso POLLEN 00:00: n 00 TREE AND DRUG Active Other 2021-11 [facility] 2-25 Anderso POLLEN 00:00: n 00 TREE AND DRUG Active Other 2021-11 [facility] 2-25 Anderso POLLEN 00:00: n 00 TREE AND DRUG Active Other 2021-11 [facility] 2-25 Anderso POLLEN 00:00: n 00 TREE AND DRUG Active Other 2021-11 [facility] 2-25 Anderso POLLEN 00:00: n 00 TREE AND DRUG Active Other 2021-11 [facility] 2-25 Anderso POLLEN 00:00: n 00 TREE AND DRUG Active Other 2021-11 [facility] 2-25 Anderso POLLEN 00:00: n 00 TREE AND DRUG Active Other 2021-11 [facility] 2-25 Anderso POLLEN 00:00: n 00 TREE AND DRUG Active Other 2021-11 [facility] 2-25 Anderso POLLEN 00:00: n 00 TREE AND DRUG Active Other 2021-11 [facility] 2-25 Anderso POLLEN 00:00: n 00 TREE AND DRUG Active Other 2021-11 [facility] 2-25 Anderso POLLEN 00:00: n 00 TREE AND DRUG Active Other 2021-11 [facility] 2-25 Anderso POLLEN 00:00: n 00 TREE AND DRUG Active Other 2021-11 [facility] 2-25 Anderso POLLEN 00:00: n 00 TREE AND DRUG Active Other 2021-11 [facility] 2-25 Anderso POLLEN 00:00: n 00 TREE AND DRUG Active Other 2021-11 [facility] 2-25 Anderso POLLEN 00:00: n 00 TREE AND DRUG Active Other 2021-11 [facility] 2-25 Anderso POLLEN 00:00: n 00 TREE AND DRUG Active Other 2021-11 [facility] 2-25 Anderso POLLEN 00:00: n 00 TREE AND DRUG Active Other 2021-11 [facility] 2-25 Anderso POLLEN 00:00: n 00 TREE AND DRUG Active Other 2021-11 [facility] 2-25 Anderso POLLEN 00:00: n 00 TREE AND DRUG Active Other 2021-11 [facility] 2-25 Anderso POLLEN 00:00: n 00 TREE AND DRUG Active Other 2021-11 [facility] 2-25 Anderso POLLEN 00:00: n 00 TREE AND DRUG Active Other 2021-11 [facility] 2-25 Anderso POLLEN 00:00: n 00 TREE AND DRUG Active Other 2021-11 [facility] 2-25 Anderso POLLEN 00:00: n 00 TREE AND DRUG Active Other 2021-11 [facility] 2-25 Anderso POLLEN 00:00: n 00 TREE AND DRUG Active Other 2021-11 [facility] 2-25 Anderso POLLEN 00:00: n 00 TREE AND DRUG Active Other 2021-11 [facility] 2-25 Anderso POLLEN 00:00: n 00 TREE AND DRUG Active Other 2021-11 [facility] 2-25 Anderso POLLEN 00:00: n 00 TREE AND DRUG Active Other 2021-11 [facility] 2-25 Anderso POLLEN 00:00: n 00 TREE AND DRUG Active Other 2021-11 [facility] 2-25 Anderso POLLEN 00:00: n 00 TREE AND DRUG Active Other 2021-11 [facility] 2-25 Anderso POLLEN 00:00: n 00 TREE AND DRUG Active Other 2021-11 [facility] 2-25 Anderso POLLEN 00:00: n 00 TREE AND DRUG Active Other 2021-11 [facility] 2-25 Anderso POLLEN 00:00: n 00 TREE AND DRUG Active Other 2021-11 [facility] 2-25 Anderso POLLEN 00:00: n 00 TREE AND DRUG Active Other 2021-11 [facility] 2-25 Anderso POLLEN 00:00: n 00 TREE AND DRUG Active Other 2021-11 [facility] 2-25 Anderso POLLEN 00:00: n 00 TREE AND DRUG Active Other 2021-11 [facility] 2-25 Anderso POLLEN 00:00: n 00 TREE AND DRUG Active Other 2021-11 [facility] 2-25 Anderso POLLEN 00:00: n 00 TREE AND DRUG Active Other 2021-11 [facility] 2-25 Anderso POLLEN 00:00: n 00 TREE AND DRUG Active Other 2021-11 [facility] 2-25 Anderso POLLEN 00:00: n 00 TREE AND DRUG Active Other 2021-11 [facility] 2-25 Anderso POLLEN 00:00: n 00 TREE AND DRUG Active Other 2021-11 [facility] 2-25 Anderso POLLEN 00:00: n 00 TREE AND DRUG Active Other 2021-11 [facility] 2-25 Anderso POLLEN 00:00: n 00 TREE AND DRUG Active Other 2021-11 [facility] 2-25 Anderso POLLEN 00:00: n 00 TREE AND DRUG Active Other 2021-11 [facility] 2-25 Anderso POLLEN 00:00: n 00 TREE AND DRUG Active Other 2021-11 [facility] 2-25 Anderso POLLEN 00:00: n 00 TREE AND DRUG Active Other 2021-11 [facility] 2-25 Anderso POLLEN 00:00: n 00 TREE AND DRUG Active Other 2021-11 [facility] 2-25 Anderso POLLEN 00:00: n 00 TREE AND DRUG Active Other 2021-11 [facility] 2-25 Anderso POLLEN 00:00: n 00 TREE AND DRUG Active Other 2021-11 [facility] 2-25 Anderso POLLEN 00:00: n 00 TREE AND DRUG Active Other 2021-11 [facility] 2-25 Anderso POLLEN 00:00: n 00 TREE AND DRUG Active Other 2021-11 [facility] 2-25 Anderso POLLEN 00:00: n 00 TREE AND DRUG Active Other 2021-11 [facility] 2-25 Anderso POLLEN 00:00: n 00 TREE AND DRUG Active Other 2021-11 [facility] 2-25 Anderso POLLEN 00:00: n 00 TREE AND DRUG Active Other 2021-11 [facility] 2-25 Anderso POLLEN 00:00: n 00 TREE AND DRUG Active Other 2021-11 [facility] 2-25 Anderso POLLEN 00:00: n 00 TREE AND DRUG Active Other 2021-11 [facility] 2-25 Anderso POLLEN 00:00: n 00 TREE AND DRUG Active Other 2021-11 [facility] 2-25 Anderso POLLEN 00:00: n 00 TREE AND DRUG Active Other 2021-11 [facility] 2-25 Anderso POLLEN 00:00: n 00 TREE AND DRUG Active Other 2021-11 [facility] 2-25 Anderso POLLEN 00:00: n 00 TREE AND DRUG Active Other 2021-11 [facility] 2-25 Anderso POLLEN 00:00: n 00 TREE AND DRUG Active Other 2021-11 [facility] 2-25 Anderso POLLEN 00:00: n 00 TREE AND DRUG Active Other 2021-11 [facility] 2-25 Anderso POLLEN 00:00: n 00 TREE AND DRUG Active Other 2021-11 [facility] 2-25 Anderso POLLEN 00:00: n 00 TREE AND DRUG Active Other 2021-11 [facility] 2-25 Anderso POLLEN 00:00: n 00 TREE AND DRUG Active Other 2021-11 [facility] 2-25 Anderso POLLEN 00:00: n 00 TREE AND DRUG Active Other 2021-11 [facility] 2-25 Anderso POLLEN 00:00: n 00 TREE AND DRUG Active Other 2021-11 [facility] 2-25 Anderso POLLEN 00:00: n 00 TREE AND DRUG Active Other 2021-11 [facility] 2-25 Anderso POLLEN 00:00: n 00 TREE AND DRUG Active Other 2021-11 [facility] 2-25 Anderso POLLEN 00:00: n 00 TREE AND DRUG Active Other 2021-11 [facility] 2-25 Anderso POLLEN 00:00: n 00 TREE AND DRUG Active Other 2021-11 [facility] 2-25 Anderso POLLEN 00:00: n 00 TREE AND DRUG Active Other 2021-11 [facility] 2-25 Anderso POLLEN 00:00: n 00 TREE AND DRUG Active Other 2021-11 [facility] 2-25 Anderso POLLEN 00:00: n 00 TREE AND DRUG Active Other 2021-11 [facility] 2-25 Anderso POLLEN 00:00: n 00 TREE AND DRUG Active Other 2021-11 [facility] 2-25 Anderso POLLEN 00:00: n 00 TREE AND DRUG Active Other 2021-11 [facility] 2-25 Anderso POLLEN 00:00: n 00 TREE AND DRUG Active Other 2021-11 [facility] 2-25 Anderso POLLEN 00:00: n 00 TREE AND DRUG Active Other 2021-11 [facility] 2-25 Anderso POLLEN 00:00: n 00 TREE AND DRUG Active Other 2021-11 [facility] 2-25 Anderso POLLEN 00:00: n 00 TREE AND DRUG Active Other 2021-11 [facility] 2-25 Anderso POLLEN 00:00: n 00 TREE AND DRUG Active Other 2021-11 [facility] 2-25 Anderso POLLEN 00:00: n 00 TREE AND DRUG Active Other 2021-11 [facility] 2-25 Anderso POLLEN 00:00: n 00 TREE AND DRUG Active Other 2021-11 [facility] 2-25 Anderso POLLEN 00:00: n 00 TREE AND DRUG Active Other 2021-11 [facility] 2-25 Anderso POLLEN 00:00: n 00 TREE AND DRUG Active Other 2021-11 [facility] 2-25 Anderso POLLEN 00:00: n 00 TREE AND DRUG Active Other 2021-11 [facility] 2-25 Anderso POLLEN 00:00: n 00 TREE AND DRUG Active Other 2021-11 [facility] 2-25 Anderso POLLEN 00:00: n 00 TREE AND DRUG Active Other 2021-11 [facility] 2-25 Anderso POLLEN 00:00: n 00 TREE AND DRUG Active Other 2021-11 [facility] 2-25 Anderso POLLEN 00:00: n 00 TREE AND DRUG Active Other 2021-11 [facility] 2-25 Anderso POLLEN 00:00: n 00 TREE AND DRUG Active Other 2021-11 [facility] 2-25 Anderso POLLEN 00:00: n 00 TREE AND DRUG Active Other 2021-11 [facility] 2-25 Anderso POLLEN 00:00: n 00 TREE AND DRUG Active Other 2021-11 [facility] 2-25 Anderso POLLEN 00:00: n 00 TREE AND DRUG Active Other 2021-11 [facility] 2-25 Anderso POLLEN 00:00: n 00 TREE AND DRUG Active Other 2021-11 [facility] 2-25 Anderso POLLEN 00:00: n 00 TREE AND DRUG Active Other 2021-11 [facility] 2-25 Anderso POLLEN 00:00: n 00 TREE AND DRUG Active Other 2021-11 [facility] 2-25 Anderso POLLEN 00:00: n 00 TREE AND DRUG Active Other 2021-11 [facility] 2-25 Anderso POLLEN 00:00: n 00 TREE AND DRUG Active Other 2021-11 [facility] 2-25 Anderso POLLEN 00:00: n 00 TREE AND DRUG Active Other 2021-11 [facility] 2-25 Anderso POLLEN 00:00: n 00 TREE AND DRUG Active Other 2021-11 [facility] 2-25 Anderso POLLEN 00:00: n 00 TREE AND DRUG Active Other 2021-11 [facility] 2-25 Anderso POLLEN 00:00: n 00 TREE AND DRUG Active Other 2021-11 [facility] 2-25 Anderso POLLEN 00:00: n 00 TREE AND DRUG Active Other 2021-11 [facility] 2-25 Anderso POLLEN 00:00: n 00 TREE AND DRUG Active Other 2021-11 [facility] 2-25 Anderso POLLEN 00:00: n 00 TREE AND DRUG Active Other 2021-11 [facility] 2-25 Anderso POLLEN 00:00: n 00 TREE AND DRUG Active Other 2021-11 [facility] 2-25 Anderso POLLEN 00:00: n 00 TREE AND DRUG Active Other 2021-11 [facility] 2-25 Anderso POLLEN 00:00: n 00 TREE AND DRUG Active Other 2021-11 [facility] 2-25 Anderso POLLEN 00:00: n 00 TREE AND DRUG Active Other 2021-11 [facility] 2-25 Anderso POLLEN 00:00: n 00 TREE AND DRUG Active Other 2021-11 [facility] 2-25 Anderso POLLEN 00:00: n 00 TREE AND DRUG Active Other 2021-11 [facility] 2-25 Anderso POLLEN 00:00: n 00 TREE AND DRUG Active Other 2021-11 [facility] 2-25 Anderso POLLEN 00:00: n 00 TREE AND DRUG Active Other 2021-11 [facility] 2-25 Anderso POLLEN 00:00: n 00 TREE AND DRUG Active Other 2021-11 [facility] 2-25 Anderso POLLEN 00:00: n 00 TREE AND DRUG Active Other 2021-11 [facility] 2-25 Anderso POLLEN 00:00: n 00 TREE AND DRUG Active Other 2021-11 [facility] 2-25 Anderso POLLEN 00:00: n 00 TREE AND DRUG Active Other 2021-11 [facility] 2-25 Anderso POLLEN 00:00: n 00 TREE AND DRUG Active Other 2021-11 [facility] 2-25 Anderso POLLEN 00:00: n 00 TREE AND DRUG Active Other 2021-11 [facility] 2-25 Anderso POLLEN 00:00: n 00 TREE AND DRUG Active Other 2021-11 [facility] 2-25 Anderso POLLEN 00:00: n 00 TREE AND DRUG Active Other 2021-11 [facility] 2-25 Anderso POLLEN 00:00: n 00 TREE AND DRUG Active Other 2021-11 [facility] 2-25 Anderso POLLEN 00:00: n 00 TREE AND DRUG Active Other 2021-11 [facility] 2-25 Anderso POLLEN 00:00: n 00 TREE AND DRUG Active Other 2021-11 [facility] 2-25 Anderso POLLEN 00:00: n 00 TREE AND DRUG Active Other 2021-11 [facility] 2-25 Anderso POLLEN 00:00: n 00 TREE AND DRUG Active Other 2021-11 [facility] 2-25 Anderso POLLEN 00:00: n 00 TREE AND DRUG Active Other 2021-11 [facility] 2-25 Anderso POLLEN 00:00: n 00 TREE AND DRUG Active Other 2021-11 [facility] 2-25 Anderso POLLEN 00:00: n 00 TREE AND DRUG Active Other 2021-11 [facility] 2-25 Anderso POLLEN 00:00: n 00 TREE AND DRUG Active Other 2021-11 [facility] 2-25 Anderso POLLEN 00:00: n 00 TREE AND DRUG Active Other 2021-11 [facility] 2-25 Anderso POLLEN 00:00: n 00 TREE AND DRUG Active Other 2021-11 [facility] 2-25 Anderso POLLEN 00:00: n 00 TREE AND DRUG Active Other 2021-11 [facility] 2-25 Anderso POLLEN 00:00: n 00 TREE AND DRUG Active Other 2021-11 [facility] 2-25 Anderso POLLEN 00:00: n 00 TREE AND DRUG Active Other 2021-11 [facility] 2-25 Anderso POLLEN 00:00: n 00 TREE AND DRUG Active Other 2021-11 [facility] 2-25 Anderso POLLEN 00:00: n 00 TREE AND DRUG Active Other 2021-11 [facility] 2-25 Anderso POLLEN 00:00: n 00 TREE AND DRUG Active Other 2021-11 [facility] 2-25 Anderso POLLEN 00:00: n 00 TREE AND DRUG Active Other 2021-11 [facility] 2-25 Anderso POLLEN 00:00: n 00 TREE AND DRUG Active Other 2021-11 [facility] 2-25 Anderso POLLEN 00:00: n 00 TREE AND DRUG Active Other 2021-11 [facility] 2-25 Anderso POLLEN 00:00: n 00 TREE AND DRUG Active Other 2021-11 [facility] 2-25 Anderso POLLEN 00:00: n 00 TREE AND DRUG Active Other 2021-11 [facility] 2-25 Anderso POLLEN 00:00: n 00 TREE AND DRUG Active Other 2021-11 [facility] 2-25 Anderso POLLEN 00:00: n 00 TREE AND DRUG Active Other 2021-11 [facility] 2-25 Anderso POLLEN 00:00: n 00 TREE AND DRUG Active Other 2021-11 [facility] 2-25 Anderso POLLEN 00:00: n 00 TREE AND DRUG Active Other 2021-11 [facility] 2-25 Anderso POLLEN 00:00: n 00 TREE AND DRUG Active Other 2021-11 [facility] 2-25 Anderso POLLEN 00:00: n 00 TREE AND DRUG Active Other 2021-11 [facility] 2-25 Anderso POLLEN 00:00: n 00 TREE AND DRUG Active Other 2021-11 [facility] 2-25 Anderso POLLEN 00:00: n 00 TREE AND DRUG Active Other 2021-11 [facility] 2-25 Anderso POLLEN 00:00: n 00 TREE AND DRUG Active Other 2021-11 [facility] 2-25 Anderso POLLEN 00:00: n 00 TREE AND DRUG Active Other 2021-11 [facility] 2-25 Anderso POLLEN 00:00: n 00 TREE AND DRUG Active Other 2021-11 [facility] 2-25 Anderso POLLEN 00:00: n 00 TREE AND DRUG Active Other 2021-11 [facility] 2-25 Anderso POLLEN 00:00: n 00 TREE AND DRUG Active Other 2021-11 [facility] 2-25 Anderso POLLEN 00:00: n 00 TREE AND DRUG Active Other 2021-11 [facility] 2-25 Anderso POLLEN 00:00: n 00 TREE AND DRUG Active Other 2021-11 [facility] 2-25 Anderso POLLEN 00:00: n 00 TREE AND DRUG Active Other 2021-11 [facility] 2-25 Anderso POLLEN 00:00: n 00 TREE AND DRUG Active Other 2021-11 [facility] 2-25 Anderso POLLEN 00:00: n 00 TREE AND DRUG Active Other 2021-11 [facility] 2-25 Anderso POLLEN 00:00: n 00 TREE AND DRUG Active Other 2021-11 [facility] 2-25 Anderso POLLEN 00:00: n 00 TREE AND DRUG Active Other 2021-11 [facility] 2-25 Anderso POLLEN 00:00: n 00 TREE AND DRUG Active Other 2021-11 [facility] 2-25 Anderso POLLEN 00:00: n 00 TREE AND DRUG Active Other 2021-11 [facility] 2-25 Anderso POLLEN 00:00: n 00 TREE AND DRUG Active Other 2021-11 [facility] 2-25 Anderso POLLEN 00:00: n 00 TREE AND DRUG Active Other 2021-11 [facility] 2-25 Anderso POLLEN 00:00: n 00 TREE AND DRUG Active Other 2021-11 [facility] 2-25 Anderso POLLEN 00:00: n 00 TREE AND DRUG Active Other 2021-11 [facility] 2-25 Anderso POLLEN 00:00: n 00 TREE AND DRUG Active Other 2021-11 [facility] 2-25 Anderso POLLEN 00:00: n 00 TREE AND DRUG Active Other 2021-11 [facility] 2-25 Anderso POLLEN 00:00: n 00 TREE AND DRUG Active Other 2021-11 [facility] 2-25 Anderso POLLEN 00:00: n 00 TREE AND DRUG Active Other 2021-11 [facility] 2-25 Anderso POLLEN 00:00: n 00 TREE AND DRUG Active Other 2021-11 [facility] 2-25 Anderso POLLEN 00:00: n 00 TREE AND DRUG Active Other 2021-11 [facility] 2-25 Anderso POLLEN 00:00: n 00 TREE AND DRUG Active Other 2021-11 [facility] 2-25 Anderso POLLEN 00:00: n 00 TREE AND DRUG Active Other 2021-11 [facility] 2-25 Anderso POLLEN 00:00: n 00 TREE AND DRUG Active Other 2021-11 [facility] 2-25 Anderso POLLEN 00:00: n 00 TREE AND DRUG Active Other 2021-11 [facility] 2-25 Anderso POLLEN 00:00: n 00 TREE AND DRUG Active Other 2021-11 [facility] 2-25 Anderso POLLEN 00:00: n 00 TREE AND DRUG Active Other 2021-11 [facility] 2-25 Anderso POLLEN 00:00: n 00 TREE AND DRUG Active Other 2021-11 [facility] 2-25 Anderso POLLEN 00:00: n 00 TREE AND DRUG Active Other 2021-11 [facility] 2-25 Anderso POLLEN 00:00: n 00 TREE AND DRUG Active Other 2021-11 [facility] 2-25 Anderso POLLEN 00:00: n 00 TREE AND DRUG Active Other 2021-11 [facility] 2-25 Anderso POLLEN 00:00: n 00 TREE AND DRUG Active Other 2021-11 [facility] 2-25 Anderso POLLEN 00:00: n 00 TREE AND DRUG Active Other 2021-11 [facility] 2-25 Anderso POLLEN 00:00: n 00 TREE AND DRUG Active Other 2021-11 [facility] 2-25 Anderso POLLEN 00:00: n 00 TREE AND DRUG Active Other 2021-11 [facility] 2-25 Anderso POLLEN 00:00: n 00 TREE AND DRUG Active Other 2021-11 [facility] 2-25 Anderso POLLEN 00:00: n 00 TREE AND DRUG Active Other 2021-11 [facility] 2-25 Anderso POLLEN 00:00: n 00 TREE AND DRUG Active Other 2021-11 [facility] 2-25 Anderso POLLEN 00:00: n 00 TREE AND DRUG Active Other 2021-11 [facility] 2-25 Anderso POLLEN 00:00: n 00 TREE AND DRUG Active Other 2021-11 [facility] 2-25 Anderso POLLEN 00:00: n 00 TREE AND DRUG Active Other 2021-11 [facility] 2-25 Anderso POLLEN 00:00: n 00 TREE AND DRUG Active Other 2021-11 [facility] 2-25 Anderso POLLEN 00:00: n 00 TREE AND DRUG Active Other 2021-11 [facility] 2-25 Anderso POLLEN 00:00: n 00 TREE AND DRUG Active Other 2021-11 [facility] 2-25 Anderso POLLEN 00:00: n 00 TREE AND DRUG Active Other 2021-11 [facility] 2-25 Anderso POLLEN 00:00: n 00 TREE AND DRUG Active Other 2021-11 [facility] 2-25 Anderso POLLEN 00:00: n 00 TREE AND DRUG Active Other 2021-11 [facility] 2-25 Anderso POLLEN 00:00: n 00 NO KNOWN Drug Active [facility] ALLERGIE Class ity of [facility] Social History Social Habit Start Date Stop Date Quantity Comments Source Exposure to 2022-12-10 2022-12-20 Not sure [facility]-CoV-2 00:00:00 12:35:00 [place] MD Chemo hopper (event) [facility] [place] Tobacco use and 2022-10-29 2022-10-29 Smokeless tobacco Un iversity of exposure 00:00:00 00:00:00 non-user Flor hopper [facility] Sex Ass[birth year] [facility] 00:00:00 00:00:00 Flor hopper [facility] Smoking Status Start Date Stop Date Source Tobacco smoking consumption [facility] unknown Never smoked tobacco [facility] [place] Medications Ordered Filled Start Stop Current Ordering Indication Dosage Frequency Signature Comments Components Source Medication Medication Date Date Medication? Clinician (SIG) Name Name melatonin 5 Yes 5mg Take 1 Univ ers mg tab 2-01 tablet (5 ity of tablet 10:55: mg) by [place] 54 mouth MD nightly as [place]o needed n (insomnia) Cancer . Center dextrometho Yes 10mL Take 10 mL Univers rphan-guaiF 2-01 by mouth ity of ENesin 10:55: every 6 [place] (ROBITUSSIN 55 (six) -DM) 10 hours as [place] mg-100 mg/5 needed for n mL liquid cough or Cancer congestion Center . 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 n Cancer Center spironolact Yes Acute 25mg Take 1 Uni vers one 1-31 myeloblasti tablet (25 it y of (ALDACTONE) 00:00: c leukemia mg) by [place] 25 mg 00 not having mouth MD tablet achieved daily. [place] remission n [facility] caspofungin 2022- Yes Fungal 70mg Infuse 70 Univers (CANCIDAS) 12-19-12 pneumonia mg ity of IV 00:00: 05:59 intravenou [place] prescriptio 00 :00 sly daily MD wynne (HOME for 11 Anders[place] USE) days. Last n dose on Cancer 12/29/22. Center amphoterici 2022- Yes Fungal 450mg Infuse 450 Univers n B 12-1912 pneumonia mg ity of liposomal 00:00: 05:59 intravenou [place] (AmBisome) 00 :00 sly 3 MD 50 mg (three) Anderso injection times a n week Cancer Sunday, Center Sunday and Sunday for 11 days. To treat pneumonia. To be administer ed in [facility] timolol Yes 1[drp] Administer Un luis enrique (TIMOPTIC) 30 1 drop to ity of 0.5% 17:45: both eyes [place] ophthalmic 19 twice MD solution daily. Anders[place] n [facility] lisinopril Yes 40mg Take 1 Unive rs (PRINIVIL,Z 1-30 tablet (40 it y of ESTRIL) 40 17:45: mg) by [place] mg tablet 19 mouth MD every Anders[place] morning. n [facility] potassium Yes Acute 20meq Take 1 Univ ers chloride 1-30 myeloblasti tablet (20 ity of (K-DUR,KLOR 00:00: c leukemia mEq) by [place] -CON M) 20 00 not having mouth 3 MD mEq tablet achieved (three) An derso remission times a n day. Cancer Center amphoterici 2022- No Fungal 450mg Infuse 450 Univers n B 12-18 01-30 pneumonia mg ity of liposomal 00:00: 00:00 intravenou [place] (AmBisome) 00 :00 sly 3 MD 50 mg (three) Anderso injection times a n week Cancer Sunday, Center Sunday and Sunday for 12 days. To treat pneumonia. To be administer ed in [facility] ([facility]). caspofungin 2022- No Fungal 70mg Infuse 70 Univers (CANCIDAS) 12-18-30 pneumonia mg ity of IV 00:00: 00:00 intravenou [place] prescriptio 00 :00 sly daily MD wynne (HOME for 12 [place] USE) days. To n treat Cancer pneumonia. Center To be administer ed in [facility] ([facility]). caspofungin 2022- No Fungal 70mg Infuse 70 Univers (CANCIDAS) 12-0930 pneumonia mg ity of IV 00:00: 00:00 intravenou [place] prescriptio 00 :00 sly daily MD wynne (HOME for 14 Anderso USE) days. To n treat Cancer pneumonia. Center To be administer ed in [facility] ([facility]) once daily until at least December 22. amphoterici 2022- No Fungal 450mg Infuse 450 Univers n B 12-09 pneumonia mg ity of liposomal 00:00: 00:00 intravenou [place] (AmBisome) 00 :00 sly daily 50 mg for 14 [place] injection days. To n treat Cancer pneumonia. Center To be administer ed in [facility] ([facility]) once daily until at least December 22. levoFLOXaci Yes 500mg Take 1 Uni vers n 1-20 tablet ity of (LEVAQUIN) 00:00: (500 mg) [place] as 500 mg 00 by mouth [facility]. [facility] Yes prevention 500mg Take 1 Univers r (VALTREX) 1-20 of herpes tablet i ty of 500 mg 00:00: zoster [place] (500 mg) [place] tablet 00 immunocompr by mouth omised daily. Anderso patient n [facility] tamsulosin Yes benign .4mg Take 1 Uni vers (FLOMAX) 1-20 prostatic capsule ity of 0.4 mg 24 00:00: hyperplasia (0.4 mg) [place] hr capsule 00 with lower by mouth urinary daily. [place] tract sx n [facility] insulin Yes Type 2 0U Inject 0 Univ ers aspart, 1-20 diabetes to 16 ity of niacinamide 00:00: mellitus Units [place] , (Fiasp 00 with under the MD [place] skin 3 A nderso U-100 ia (three) n Insulin) times a Cancer 100 unit/mL day. Take [address] (3 mL) inpn as instructed at discharge. lancets Yes Type 2 1{each} 1 each by [facility] mis 1-20 diabetes miscellane it[place] o f 00:00: [place] route [place] 00 with 4 (four) MD justin times a Chemo so ia day. n [facility] blood sugar Yes Type 2 1{each} 1 each by [facility] diagnostic 1-20 diabetes miscellane ity of (glucose 00:00: mellitus ous route [place] blood) strp 00 with 4 (four) MD justin times a Chemo so ia day. n [facility] pen needle, Yes Type 2 1{each} 1 each by [facility] diabetic 32 -20 diabetes miscellane ity of gauge x 00:00: mellitus ous route [place] " ndle 00 with 4 (four) MD justin times a Chemo so ia day. n [facility] traMADol Yes Acute 50mg Take 1 Univer s (ULTRAM) 50 -20 myeloblasti tablet (50 ity of mg tablet 00:00: c leukemia mg) by [place] 00 not having mouth achieved every 6 Anderso remission (six) n hours as Cancer needed for Center moderate pain. blood-gluco 2023- Yes Type 2 Use as U nivers se meter 12-08 diabetes instructed ity of kit 00:00: 05:59 mellitus [place] 00 :00 with MD anderson Anderso ia [facility] potassium 2022- No Acute 20meq Take 1 Uni vers chloride 12-08 myeloblasti tablet (20 ity of (K-SUZYKLOR 00:00: 00:00 c leukemia mEq) by [place] -CON M) 20 00 :00 not having mouth mEq tablet achieved twice Sean rso remission daily. n [facility] pen needle, 2022- No Use as Uni vers diabetic 12-08 directed. ity o f needle 00:00: 00:00 [place] 00 :00 MD [facility] pen needle, 2022- No Use as Uni vers diabetic 12-08 directed. ity o f needle 00:00: 00:00 [place] 00 :00 MD [facility] enoxaparin 2022- No Acute 80mg Inject 0.8 Univers (Lovenox) 12-08 embolism mL (80 mg) ity of 80 mg/0.8 00:00: 00:00 [place] mL 00 :00 thrombosis skin every MD prefilled of 12 Anderso syringe unspecified (twelve) n deep veins hours. Cancer of distal Center lower extremity, bilateral, not otherwise specified insulin 2022- No Type 2 18U Inject 18 Un luis enrique degludec 12-08 diabetes Units ity o f 100 unit/mL 00:00: 00:00 mellitus under the [place] (3 mL) 00 :00 with skin MD insulin pen hyperglycem daily. Do Anderso ia not take n if your Cancer blood Center sugar is less than 100 mg/dL. pen needle, 2022- No Use as Uni vers diabetic 12-08 directed. ity o f needle 00:00: 00:00 [place] 00 :00 MD Fatuma wynne [facility] insulin 2022- No Type 2 10U Inject 10 Un luis enrique degludec 12-08 diabetes Units ity o f 100 unit/mL 00:00: 00:00 mellitus under the [place] (3 mL) 00 :00 with skin MD insulin pen hyperglycem daily. Do Anderso ia not take n if your Cancer blood Center sugar is less than 100 mg/dL. atorvastati Yes Acute 40mg Take 1 Uni vers n (LIPITOR) 1-19 myeloblasti tablet (40 ity of 40 mg 00:00: c [place] mg) [place] tablet 00 not having mouth at MD achieved bedtime. 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 loratadine Yes Acute 10mg Take 1 Univ ers (CLARITIN) 12-07 myeloblasti tablet (10 ity of 10 mg 00:00: c leukemia mg) [place] tablet 00 not having mouth at MD achieved bedtime. Anderso remission n Cancer Center posaconazol Yes Fungal 300mg Take 3 U nivers e (NOXAFIL) 12-07 pneumonia tablets ity of [address] 00:00: (300 mg) [place] tablet 00 by mouth MD twice Anderso daily. 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 Cancer Center apixaban 2022- No Acute 2.5mg Take 1 Univ ers (Eliquis) 12-06 myeloblasti tablet ity of 2.5 mg 00:00: 00:00 c leukemia (2.5 mg) [place] tablet 00 :00 not having by mouth MD achieved every 12 Anderso remission (twelve) n hours. Cancer Center INV-(0 2022- No Acute 50mg Take 1 Un luis enrique 020) 11-22 leukemia, tablet (50 ity of venetoclax 00:00: 00:00 not mg) [place] (ABT-199) 00 :00 otherwise mouth MD 50 mg specified daily. Anderso tablet Take on n days 1-21 Cancer by mouth Center with 8 ounces of water within 30 minutes after completion of a meal posaconazol 2022- No Fungal 300mg Take 3 Univers e (NOXAFIL) 11-21 pneumonia tablets ity of [address] 00:00: 00:00 (300 mg) [place] as tablet 00 :00 by mouth MD daily. 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 [place] drop 00 unspecified eye, stage Anderso unspecified n [facility] Center voriconazol 2021-11 No 200mg Take 1 Un luis enrique e (VFEND) 01-07 tablet ity of 200 mg 00:00: 00:00 (200 mg) [place] tablet 00 :00 by mouth twice Andambika daily. n [facility] INV-(2021-11 No Acute Take 1 Un luis enrique 020) 01-07 leukemia, tablet ity of venetoclax 00:00: 00:00 not (100 mg) [place] (ABT-199) 00 :00 otherwise by mouth M D 100 mg specified every Anderso tablet morning n for 1 day, Cancer THEN 2 Center tablets (200 mg) every morning for 1 day, THEN 4 tablets (400 mg) every morning for 19 days. Take on days 1-21 by mouth with 8 ounces of water within 30 minutes after completion of a meal.. voriconazol 2021-11- No 200mg Take 1 Un luis enrique e (VFEND) 01-07 tablet ity of 200 mg 00:00: 00:00 (200 mg) [place] tablet 00 :00 by mouth MD moffett Andambika daily. n [facility] Toujeo 2021-11 Yes 18U Inject 18 Univer s SoloStar 1-17 Units ity of U-300 00:00: under the [place] Insulin 300 00 skin every MD unit/mL morning. Anderso (1.5 mL) n insulin pen [facility] glimepiride 2019-0 Yes 4mg Take 4 mg U nivers 4 mg tablet 07-21 by mouth ity of 17:40: daily with [place] 18 breakfast. Medical Branch lisinopriL 2019-0 Yes 40mg Take 40 mg U nivers 40 mg 07-21 by mouth ity of tablet 17:40: daily. [place] [address] Medical Branch atorvastati 2019-0 Yes 40mg Take 40 mg Univers n 40 mg 07-21 by mouth ity of tablet 17:40: at [place] [address] bedtime. Medical Branch glimepiride 2020-0 Yes 4mg Take 4 mg U nivers 4 mg tablet 07-21 by mouth ity of 17:40: daily with [place] [address] breakfast. Medical Branch lisinopriL 2020-0 Yes 40mg Take 40 mg U nivers 40 mg 07-21 by mouth ity of tablet 17:40: daily. [place] [address] Medical Branch atorvastati 2020-0 Yes 40mg Take 40 mg Univers n 40 mg 07-21 by mouth ity of tablet 17:40: at [place] [address] bedtime. Medical Branch lactated 2020-0 Yes 1000mL at 75 Univer s ringers IV 07-21 mL/hr, ity of infusion 15:45: 1,000 mL, [place] 1,000 mL 00 IV Medical Infusion, Branch CONTINUOUS , Starting Sun07/21/20 at 1045, Until Discontinu ed, Routine, PACU ondansetron 2020-0 Yes 4mg 4 mg, Slow Univers (ZOFRAN 07-21 IV Push, ity of (PF)) 15:41: PRN, 1 [place] injection 4 47 dose, Medical mg Starting Branch Sun07/21/20 at 1041, Until Discontinu ed, Routine, Nausea and Vomiting (N/V), PACU FENTanyl PF 2019-0 Yes 25ug 25 mcg, Uni vers (SUBLIMAZE 07-21 Slow IV ity of (PF)) 15:41: Push, [place] injection 46 Q5MIN PRN, Medi elizabeth 25 mcg 4 doses, Branch Starting Sun07/21/20 at 1041, Until Discontinu ed, Routine, Pain (scale 4-6), PACU glimepiride 2020-0 Yes 4mg Take 4 mg U nivers 4 mg tablet 07-21 by mouth ity of 15:33: daily with [place] [address] breakfast. Medical Branch lisinopriL 2020-0 Yes 40mg Take 40 mg U nivers 40 mg 07-21 by mouth ity of tablet 15:33: daily. [place] [address] Medical Branch atorvastati 2020-0 Yes 40mg Take 40 mg Univers n 40 mg 07-21 by mouth ity of tablet 15:33: at [place] [address] bedtime. Medical Branch sugammadex 2020-0 2020- No ONCE INTRA Univers (BRIDION) 07-21 PROCEDURE, ity of injection 15:06: 15:26 Starting [place] as 00 :25 Sun07/21/20 Medical at 1006, Branch Until Sun07/21/20 at 1026, Routine, Intra-op ondansetron 2020-0 2020- No ONCE INTRA Univers (ZOFRAN 07-21 PROCEDURE, ity o f (PF)) 14:12: 15:26 Starting [place] injection 00 :25 Sun07/21/20 Medi elizabeth at 0912, Branch Until Sun07/21/20 at 1026, Routine, Intra-op morpHINE 2020-0 2020- No ONCE INTRA Un luis enrique injection 07-21 PROCEDURE, ity of 14:11: 15:26 Starting [place] 00 :25 Sun07/21/20 Medical at 0911, Branch Until Sun07/21/20 at 1026, Routine, Intra-op NaCl 0.9% 2020-0 2020- No CONTINUOUS U nivers (NS) IV 07-21 PRN, ity of infusion 13:22: 15:26 Starting [place] 00 :25 Sun07/21/20 Medical at 0822, Branch Until Sun07/21/20 at 1026, Routine, Intra-op ePHEDrine 2020-0 2020- No ONCE INTRA U nivers 25 mg/5 mL 07-21 PROCEDURE, it y of (5 mg/mL) 13:18: 15:26 Starting [place] as syringe 00 :25 Sun07/21/20 Medica l at 0818, Branch Until Sun07/21/20 at 1026, Routine, Intra-op ceFAZolin 2020-0 2020- No ONCE INTRA U nivers (ANCEF) 07-21 PROCEDURE, ity o f injection 13:12: 15:26 Starting [place] as 00 :25 Sun07/21/20 Medical at 0812, Branch Until Sun07/21/20 at 1026, PAVAN, Intra-op esmoloL 2020-0 2020- No ONCE INTRA Uni vers (BREVIBLOC) 07-21 PROCEDURE, i ty of injection 12:48: 15:26 Starting [place] as 00 :25 Sun07/21/20 Medical at 0748, Branch Until Sun07/21/20 at 1026, Routine, Intra-op rocuronium 2020-0 2020- No ONCE INTRA Univers (ZEMURON) 07-21 PROCEDURE, ity of injection 12:45: 15:26 Starting [place] as 00 :25 Sun07/21/20 Medical at 0745, Branch Until Sun07/21/20 at 1026, Routine, Intra-op propofoL IV 2020-0 2020- No ONCE INTRA Univers infusion 07-21 PROCEDURE, ity of 12:42: 15:26 Starting [place] 00 :25 Sun07/21/20 Medical at 0742, Branch Until Sun07/21/20 at 1026, Routine, Intra-op FENTanyl PF 2020-0 2020- No ONCE INTRA Univers (SUBLIMAZE 07-21 PROCEDURE, it y of (PF)) 12:40: 15:26 Starting [place] injection 00 :25 Sun07/21/20 Medi elizabeth at 0740, Branch Until Sun07/21/20 at 1026, Routine, Intra-op sodium 2020-0 Yes PRN, Univers chloride 07-21 Starting ity of 0.9 % 12:37: Sun07/21/20 [place] irrigation 00 at 0737, Medic al solution Until Branch Discontinu ed, Intra-op lactated 2020-0 Yes PRN, Univers Ringers 07-21 Starting ity of irrigation 12:37: Sun07/21/20 [place] solution 00 at 0737, Medical Until Branch Discontinu ed, Routine, Intra-op lactated 2020-0 2020- No CONTINUOUS Un luis enrique ringers IV 07-21 PRN, ity of infusion 12:36: 15:26 [place] 00 :25 Sun07/21/20 Medical at 0736, Branch Until Sun07/21/20 at 1026, Routine, Intra-op bupivacaine 2020-0 2020- No ONCE INTRA Univers (preserv 07-21 PROCEDURE, ity of free) 0.5% 12:25: 15:26 [place] (SENSORCAIN 00 :25 Sun07/21/20 Me dical E MPF) 0.5 at 0725, Branc h % (5 mg/mL) Until injection Discontinu ed, Routine, Intra-op midazolam 2020-0 2020- No ONCE INTRA U nivers (VERSED) 07-21 PROCEDURE, ity of injection 12:23: 15:26 Starting [place] as 00 :25 Sun07/21/20 Medical at 0723, Branch Until Sun07/21/20 at 1026, Routine, Intra-op lactated 2020-0 2020- No 1000mL at 20 Unive rs ringers IV 07-21 09-02 mL/hr, ity of infusion 11:30: 11:24 1,000 mL, [place] as 1,000 mL 00 :00 IV Medical Infusion, Branch ONCE, 1 dose, Sun07/21/20 at 0630, Routine, DSU Pre-op meloxicam 2020-0 Yes 7.5mg Take 7.5 Uni vers 7.5 mg 8-20 mg by ity of tablet 00:00: mouth [place] 00 every Medical evening. Branch meloxicam 2020-0 Yes 7.5mg Take 7.5 Uni vers 7.5 mg 8-20 mg by ity of tablet 00:00: mouth [place] 00 every Medical evening. Branch meloxicam 2020-0 Yes 7.5mg Take 7.5 Uni vers 7.5 mg 8-20 mg by ity of tablet 00:00: mouth [place] 00 every Medical evening. Branch meloxicam 2020-0 Yes 7.5mg Take 7.5 Uni vers 7.5 mg 8-20 mg by ity of tablet 00:00: mouth [place] 00 every Medical evening. Branch meloxicam 2020-0 Yes 7.5mg Take 7.5 Uni vers 7.5 mg 8-20 mg by ity of tablet 00:00: mouth [place] 00 every Medical evening. Branch meloxicam 2020-0 Yes 7.5mg Take 7.5 Uni vers 7.5 mg 8-20 mg by ity of tablet 00:00: mouth [place] 00 every Medical evening. Branch meloxicam 2020-0 Yes 7.5mg Take 7.5 Uni vers 7.5 mg 8-20 mg by ity of tablet 00:00: mouth [place] 00 every Medical evening. Branch meloxicam 2020-0 Yes 7.5mg Take 7.5 Uni vers 7.5 mg 8-20 mg by ity of tablet 00:00: mouth [place] 00 every Medical evening. Branch SYNJARDY XR 2020-0 Yes 1{tbl} Take 1 Un luis enrique 25-1,000 mg 7-28 tablet by ity of TBph 00:00: mouth [place] 00 daily. Medical Branch SYNJARDY XR 2020-0 Yes 1{tbl} Take 1 Un luis enrique 25-1,000 mg 7-28 tablet by ity of TBph 00:00: mouth [place] 00 daily. Medical Branch SYNJARDY XR 2020-0 Yes 1{tbl} Take 1 Un luis enrique 25-1,000 mg 7-28 tablet by ity of TBph 00:00: mouth [place] 00 daily. Medical Branch SYNJARDY XR 2020-0 Yes 1{tbl} Take 1 Un luis enrique 25-1,000 mg 7-28 tablet by ity of TBph 00:00: mouth [place] 00 daily. Medical Branch SYNJARDY XR 2020-0 Yes 1{tbl} Take 1 Un luis enrique 25-1,000 mg 7-28 tablet by ity of TBph 00:00: mouth [place] 00 daily. Medical Branch SYNJARDY XR 2020-0 Yes 1{tbl} Take 1 Un luis enrique 25-1,000 mg 7-28 tablet by ity of TBph 00:00: mouth [place] 00 daily. Medical Branch SYNJARDY XR 2020-0 Yes 1{tbl} Take 1 Un luis enrique 25-1,000 mg 7-28 tablet by ity of TBph 00:00: mouth [place] 00 daily. Medical Branch SYNJARDY XR 2020-0 Yes 1{tbl} Take 1 Un luis enrique 25-1,000 mg 7-28 tablet by ity of TBph 00:00: mouth [place] 00 daily. Medical Branch Vital Signs Vital Name Observation Time Observation Value Comments Source Systolic blood 2020-07-21 16:45:00 107 mm[Hg] [facility] Diastolic blood 2020-07-21 16:45:00 62 mm[Hg] Unive [facility] [place] Heart rate 2020-07-21 16:45:00 69 /min [facility] Oxygen saturation in 2020-07-21 16:45:00 94 /min [facility] Arterial blood by [facility] Pulse oximetry Branch Respiratory rate 2020-07-21 16:35:00 18 /min [facility] Body temperature 2020-07-21 15:30:00 35.56 [facility] Body height 2020-07-19 18:53:00 172.7 cm [facility] Body weight 2020-07-19 18:53:00 83.915 kg [facility] BMI 2020-07-19 18:53:00 28.13 kg/m2 Universi ty of [facility] Respiratory rate 2020-07-21 15:24:00 18 /min Univ ersity of [facility] Systolic blood 2022-12-20 19:42:01 135 mm[Hg] Univer sity of pressure [facility] Diastolic blood 2022-12-20 19:42:01 74 mm[Hg] Unive rsity of pressure [place] MD [facility] Heart rate 2022-12-20 19:42:01 58 /min Universi ty of [place] MD [facility] Body temperature 2022-12-20 19:42:01 36.72 Mari Univ ersity [facility] MD [facility] Respiratory rate 2022-12-20 19:42:01 20 /min [facility] Oxygen saturation in 2022-12-20 19:42:01 99 /min University of Arterial blood by Flor little Pulse oximetry Cancer Center Body weight 2022-12-20 18:42:00 87 kg Universi ty [facility] MD [facility] BMI 2022-12-20 18:42:00 29.24 kg/m2 Universi ty [facility] Body height 2022-12-13 05:02:00 172.5 cm [facility] Procedures Procedure Date / Time Performing Clinician Source Performed TYPE AND SCREEN 2022-12-20 14:35:00 Dang Neves [facility] COMPLETE BLOOD COUNT W/ 2022-12-20 14:35:00 [facility] TOTAL PROTEIN 2022-12-20 14:35:00 Dang Neves [facility] ALBUMIN LEVEL 2022-12-20 14:35:00 Dang Neves [facility] CALCIUM LEVEL TOTAL 2022-12-20 14:35:00 Dang Neves [facility] PHOSPHORUS LEVEL 2022-12-20 14:35:00 Dang Neves [facility] GLUCOSE, RANDOM 2022-12-20 14:35:00 Dang Neves [facility] BLOOD UREA NITROGEN 2022-12-20 14:35:00 Dang Neves [facility] SERUM CREATININE 2022-12-20 14:35:00 Dang Neves [facility] URIC ACID 2022-12-20 14:35:00 Dang Neves [facility] FRACTIONATED BILIRUBIN 2022-12-20 14:35:00 Dang Neves [facility] ALKALINE PHOSPHATASE 2022-12-20 14:35:00 Dang Neves [facility] LACTATE DEHYDROGENASE 2022-12-20 14:35:00 Dang Neves [facility] ALANINE AMINOTRANSFERASE 2022-12-20 14:35:00 [facility] ELECTROLYTE PANEL 2022-12-20 14:35:00 Dang Neves [facility] MAGNESIUM LEVEL 2022-12-20 14:35:00 Dang Neves [facility] Results CBC 2022-12-20 14:35:00 Dang Neves [facility] MANUAL DIFFERENTIAL 2022-12-20 14:35:00 Dang Neves [facility] SERUM CREATININE 2022-12-20 14:35:00 Dang Neves [facility] .GLOMERULAR FILTRATION 2022-12-20 14:35:00 Dang Neves [facility] RATE [facility] ABORH 2022-12-20 14:35:00 Dang Neves [facility] ANTIBODY SCREEN 2022-12-20 14:35:00 Dang Neves [facility] CLOT EXPIRATION DATE 2022-12-20 14:35:00 Dang Neves [facility] TMP INTERPRETATION 2022-12-20 14:35:00 Dang Neves [facility] ANTIBODY SCREEN NEGATIVE MD [facility] POC GLUCOSE SCREEN 2022-12-18 19:24:00 [facility] POC GLUCOSE SCREEN 2022-12-18 14:09:00 [facility] COMPLETE [facility]LO[facility] W/ 2022-12-18 06:49:00 Rosa Maria Orantes [facility] [place] [facility] GLUCOSE, RANDOM 2022-12-18 06:49:00 Rosa Maria Orantes [facility] CALCIUM LEVEL TOTAL 2022-12-18 06:49:00 Rosa Maria Orantes [facility] BLOOD UREA NITROGEN 2022-12-18 06:49:00 Rosa Maria Orantes [facility] SERUM CREATININE 2022-12-18 06:49:00 Rosa Maria Orantes [facility] SODIUM LEVEL 2022-12-18 06:49:00 Rosa Maria Orantes [facility] POTASSIUM LEVEL 2022-12-18 06:49:00 Lamberto Rosa Maria [facility] MAGNESIUM LEVEL 2022-12-18 06:49:00 Rosa Maria Orantes [facility] CHLORIDE LEVEL 2022-12-18 06:49:00 Rosa Maria Orantes [facility] CARBON DIOXIDE LEVEL 2022-12-18 06:49:00 Rosa Maria Orantes [facility] TOTAL PROTEIN 2022-12-18 06:49:00 Rosa Maria Orantes [facility] ALBUMIN LEVEL 2022-12-18 06:49:00 Rosa Maria Orantes [facility] PHOSPHORUS LEVEL 2022-12-18 06:49:00 Rosa Maria Orantes [facility] FRACTIONATED BILIRUBIN 2022-12-18 06:49:00 Orantes, Rosa Maria Uni [facility] ALKALINE PHOSPHATASE 2022-12-18 06:49:00 Rosa Maria [facility] ALANINE AMINOTRANSFERASE 2022-12-18 06:49:00 Rosa Maria [facility]antes [facility] ASPARTATE AMINOTRANSFERASE 2022-12-18 06:49:00 Rosa Maria Orantes [facility] URIC ACID 2022-12-18 06:49:00 Rosa Maria Orantes [facility] NT PRO BNP 2022-12-18 06:49:00 Rosa Maria Orantes [facility] Results CBC 2022-12-18 06:49:00 Rosa Maria Orantes [facility] MANUAL DIFFERENTIAL 2022-12-18 06:49:00 Rosa Maria Orantes sity [facility] SERUM CREATININE 2022-12-18 06:49:00 Rosa Maria Orantes [facility] .GLOMERULAR FILTRATION 2022-12-18 06:49:00 Rosa Maria Orantes [facility] RATE [facility] ANION GAP 2022-12-18 06:49:00 Rosa Maria Orantes [facility] POC GLUCOSE SCREEN 2022-12-18 03:03:00 Roshan [facility] er Center POC GLUCOSE SCREEN 2022-12-18 00:03:00 Roshan [facility] er [place] EKG, 12-LEAD (PORTABLE) 2022-12-18 00:00:00 Khang Hernandez [facility] er Center US UPPER EXTREMITY LIMITED 2022-12-17 20:44:24 Khang Hernandez [facility] LEFT [facility] er Center POC GLUCOSE SCREEN 2022-12-17 19:37:00 Roshan [facility] er Center POC GLUCOSE SCREEN 2022-12-17 14:49:00 Roshan [facility] er Center TYPE AND SCREEN 2022-12-17 11:33:00 Roshan [place] [facility]PLETE [facility]LO[facility] W/ 2022-12-17 11:33:00 [facility] GLUCOSE, RANDOM 2022-12-17 11:33:00 Rosa Maria Orantes [facility] CALCIUM LEVEL TOTAL 2022-12-17 11:33:00 Rosa Maria Orantes [facility] BLOOD UREA NITROGEN 2022-12-17 11:33:00 Rosa Maria Orantes [facility] SERUM CREATININE 2022-12-17 11:33:00 Rosa Maria Orantes [facility] SODIUM LEVEL 2022-12-17 11:33:00 Rosa Maria Orantes [facility] POTASSIUM LEVEL 2022-12-17 11:33:00 Rosa Maria Orantes [facility] MAGNESIUM LEVEL 2022-12-17 11:33:00 Rosa Maria Orantes [facility] CHLORIDE LEVEL 2022-12-17 11:33:00 Rosa Maria Orantes [facility] CARBON DIOXIDE LEVEL 2022-12-17 11:33:00 [facility] TOTAL PROTEIN 2022-12-17 11:33:00 Rosa Maria Orantes [facility] ALBUMIN LEVEL 2022-12-17 11:33:00 Rosa Maria Orantes [facility] PHOSPHORUS LEVEL 2022-12-17 11:33:00 Rosa Maria Orantes [facility] FRACTIONATED BILIRUBIN 2022-12-17 11:33:00 Rosa Maria Orantes [facility] ALKALINE PHOSPHATASE 2022-12-17 11:33:00 Rosa [facility]antes [facility] ALANINE AMINOTRANSFERASE 2022-12-17 11:33:00 Rosa Maria Orantes [facility] ASPARTATE AMINOTRANSFERASE 2022-12-17 11:33:00 Rosa Maria Orantes [facility] URIC ACID 2022-12-17 11:33:00 Rosa Maria Orantes [facility] PROTHROMBIN TIME 2022-12-17 11:33:00 Rosa Maria Orantes [facility] APTT 2022-12-17 11:33:00 Rosa Maria Orantes [facility] D DIMER 2022-12-17 11:33:00 Rosa Maria Orantes [facility] FIBRINOGEN ACTIVITY 2022-12-17 11:33:00 Rosa Maria Orantes [facility] NT PRO BNP 2022-12-17 11:33:00 Rosa Maria Orantes [facility] ABORH 2022-12-17 11:33:00 [facility] 2022-12-17 11:33:00 [facility] Results CBC 2022-12-17 11:33:00 Rosa Maria Orantes [facility] MANUAL DIFFERENTIAL 2022-12-17 11:33:00 Rosa Maria Orantes [facility] SERUM CREATININE 2022-12-17 11:33:00 Rosa Maria Orantes [facility] .GLOMERULAR FILTRATION 2022-12-17 11:33:00 Rosa Maria Orantes [facility] ANION GAP 2022-12-17 11:33:00 Rosa Maria Orantes [facility] TMP INTERPRETATION 2022-12-17 11:33:00 Roshan [facility] ANTIBODY SCREEN NEGATIVE [facility] CLOT EXPIRATION DATE 2022-12-17 11:33:00 Roshan [facility] LOWER RESPIRATORY CULTURE 2022-12-17 04:52:00 Khang Hernandez [facility] W/ GRAM STAIN [facility] POC GLUCOSE SCREEN 2022-12-17 04:00:00 Roshan [facility] er Center POC GLUCOSE SCREEN 2022-12-16 23:35:00 Roshan [facility] Center POTASSIUM LEVEL 2022-12-16 22:13:00 Khang Hernandez [facility] [place] [facility] [facility] POC GLUCOSE SCREEN 2022-12-16 18:34:00 [facility]SE SCREEN 2022-12-16 14:00:00 [facility] COMPLETE BLOOD COUNT W/ 2022-12-16 08:52:00 Rosa Maria Orantes [facility] GLUCOSE, RANDOM 2022-12-16 08:52:00 Rosa Maria Orantes [facility] CALCIUM LEVEL TOTAL 2022-12-16 08:52:00 Rosa Maria Orantes [facility] BLOOD UREA NITROGEN 2022-12-16 08:52:00 Rosa Maria Orantes [facility] SERUM CREATININE 2022-12-16 08:52:00 Rosa Maria Orantes [facility] SODIUM LEVEL 2022-12-16 08:52:00 Rosa Maria Orantes [facility] POTASSIUM LEVEL 2022-12-16 08:52:00 Rosa Maria Orantes [facility] MAGNESIUM LEVEL 2022-12-16 08:52:00 Rosa Maria Orantes [facility] CHLORIDE LEVEL 2022-12-16 08:52:00 Rosa Maria Orantes [facility] CARBON DIOXIDE LEVEL 2022-12-16 08:52:00 Rosa Maria Orantes [facility] TOTAL PROTEIN 2022-12-16 08:52:00 Rosa Maria Orantes [facility] ALBUMIN LEVEL 2022-12-16 08:52:00 Rosa Maria Orantes [facility] PHOSPHORUS LEVEL 2022-12-16 08:52:00 Rosa Maria Orantes [facility] FRACTIONATED BILIRUBIN 2022-12-16 08:52:00 Rosa Maria Orantes [facility] ALKALINE PHOSPHATASE 2022-12-16 08:52:00 Rosa [facility] ALANINE AMINOTRANSFERASE 2022-12-16 08:52:00 [facility] ASPARTATE AMINOTRANSFERASE 2022-12-16 08:52:00 Rosa Maria Orantes [facility] URIC ACID 2022-12-16 08:52:00 Rosa Maria Orantes [facility] NT PRO BNP 2022-12-16 08:52:00 Rosa Maria Orantes [facility] POSACONAZOLE LEVEL, SERUM 2022-12-16 08:52:00 Margaret Paul [facility] Results CBC 2022-12-16 08:52:00 Rosa Maria Orantes [facility] MANUAL DIFFERENTIAL 2022-12-16 08:52:00 Rosa Maria [facility] SERUM CREATININE 2022-12-16 08:52:00 Rosa Maria Orantes [facility] .GLOMERULAR FILTRATION 2022-12-16 08:52:00 Rosa Maria Orantes [facility] ANION GAP 2022-12-16 08:52:00 Rosa Maria Orantes [facility] POC GLUCOSE SCREEN 2022-12-16 03:42:00 Roshan [facility] er Center POC GLUCOSE SCREEN 2022-12-16 00:57:00 Roshan [facility] er Center POC GLUCOSE SCREEN 2022-12-15 19:29:00 Roshan [facility] er Center POC GLUCOSE SCREEN 2022-12-15 17:54:00 Roshan [facility] er Center POC GLUCOSE SCREEN 2022-12-15 14:45:00 [facility] COMPLETE BLOOD COUNT W/ 2022-12-15 08:42:00 Rosa Maria Orantes [facility] GLUCOSE, RANDOM 2022-12-15 08:42:00 Rosa Maria Orantes [facility] CALCIUM LEVEL TOTAL 2022-12-15 08:42:00 Rosa Maria Orantes [facility] BLOOD UREA NITROGEN 2022-12-15 08:42:00 Rosa Maria Orantes [facility] SERUM CREATININE 2022-12-15 08:42:00 Rosa Maria Orantes [facility] SODIUM LEVEL 2022-12-15 08:42:00 Rosa Maria Orantes [facility] POTASSIUM LEVEL 2022-12-15 08:42:00 Rosa Maria Orantes [facility] MAGNESIUM LEVEL 2022-12-15 08:42:00 Rosa Maria Orantes [facility] CHLORIDE LEVEL 2022-12-15 08:42:00 Rosa Maria Orantes [facility] CARBON DIOXIDE LEVEL 2022-12-15 08:42:00 Rosa Maria [facility]antes [facility] TOTAL PROTEIN 2022-12-15 08:42:00 Rosa Maria Orantes [facility] ALBUMIN LEVEL 2022-12-15 08:42:00 Rosa Maria Orantes [facility] PHOSPHORUS LEVEL 2022-12-15 08:42:00 Rosa Maria Orantes [facility] FRACTIONATED BILIRUBIN 2022-12-15 08:42:00 Rosa Maria [facility]antes [facility] ALKALINE PHOSPHATASE 2022-12-15 08:42:00 Rosa Maria Orantes [facility] ALANINE AMINOTRANSFERASE 2022-12-15 08:42:00 Rosa [facility] ASPARTATE AMINOTRANSFERASE 2022-12-15 08:42:00 Rosa Maria Orantes [facility] URIC ACID 2022-12-15 08:42:00 Rosa Maria Orantes [facility] NT PRO BNP 2022-12-15 08:42:00 Rosa Maria Orantes [facility] Results CBC 2022-12-15 08:42:00 Rosa Maria Orantes [facility] MANUAL DIFFERENTIAL 2022-12-15 08:42:00 Rosa Maria Orantes [facility] SERUM CREATININE 2022-12-15 08:42:00 Rosa Maria Orantes [facility] .GLOMERULAR FILTRATION 2022-12-15 08:42:00 Rosa Maria Orantes [facility] ANION GAP 2022-12-15 08:42:00 Lamberto Rosa Maria [facility] POC GLUCOSE SCREEN 2022-12-15 03:09:00 [facility] POC GLUCOSE SCREEN 2022-12-15 00:35:00 [facility] TYPE AND SCREEN 2022-12-14 21:19:00 Rosa Maria Orantes [facility] ABORH 2022-12-14 21:19:00 Lamberto Rosa Maria [facility] ANTIBODY SCREEN 2022-12-14 21:19:00 Rosa Maria Orantes [facility] BASIC METABOLIC PANEL, 2022-12-14 21:19:00 Rosa Maria Orantes [facility] CALCIUM TOTAL [facility] GLUCOSE LEVEL 2022-12-14 21:19:00 Rosa Maria Orantes [facility] BLOOD UREA NITROGEN 2022-12-14 21:19:00 Rosa Maria Orantes [facility] ELECTROLYTE PANEL 2022-12-14 21:19:00 Rosa Maria Orantes [facility] SERUM CREATININE 2022-12-14 21:19:00 Rosa Maria Orantes [facility] .GLOMERULAR FILTRATION 2022-12-14 21:19:00 Rosa Maria Orantes [facility] CALCIUM LEVEL TOTAL 2022-12-14 21:19:00 Rosa Maria Orantes [facility] CLOT EXPIRATION DATE 2022-12-14 21:19:00 Rosa Maria Orantes [facility] TMP INTERPRETATION 2022-12-14 21:19:00 Rosa Maria Orantes [facility] ANTIBODY SCREEN NEGATIVE MD [facility] POC GLUCOSE SCREEN 2022-12-14 19:23:00 Roshan [facility] TRANSFUSE RED BLOOD CELLS 2022-12-14 15:10:00 [facility] GLUCOSE SCREEN 2022-12-14 15:10:00 Roshan [facility] PREPARE RBC 2022-12-14 11:02:00 Roshan [place] [facility] PRBC PRODUCT READY FOR 2022-12-14 11:02:00 Rob Islas [facility] DIRECTOR DECISION SUPPORT [facility] COMPLETE BLOOD COUNT W/ 2022-12-14 10:30:00 Rosa Maria Orantes [facility] DIFFERENTIAL [facility] GLUCOSE, RANDOM 2022-12-14 10:30:00 Rosa Maria Orantes [facility] CALCIUM LEVEL TOTAL 2022-12-14 10:30:00 [facility] BLOOD UREA NITROGEN 2022-12-14 10:30:00 Rosa Maria Orantes [facility] SERUM CREATININE 2022-12-14 10:30:00 Rosa Maria Orantes [facility] SODIUM LEVEL 2022-12-14 10:30:00 Rosa Maria Orantes [facility] POTASSIUM LEVEL 2022-12-14 10:30:00 Rosa Maria Orantes [facility] MAGNESIUM LEVEL 2022-12-14 10:30:00 Rosa Maria Orantes [facility] CHLORIDE LEVEL 2022-12-14 10:30:00 Rosa Maria Orantes [facility] CARBON DIOXIDE LEVEL 2022-12-14 10:30:00 Rosa Maria Orantes [facility] TOTAL PROTEIN 2022-12-14 10:30:00 Rosa Maria Orantes [facility] ALBUMIN LEVEL 2022-12-14 10:30:00 Rosa Maria Orantes [facility] PHOSPHORUS LEVEL 2022-12-14 10:30:00 Rosa Maria Orantes [facility] FRACTIONATED BILIRUBIN 2022-12-14 10:30:00 Rosa Maria Orantes [facility] ALKALINE PHOSPHATASE 2022-12-14 10:30:00 Rosa Maria Orantes [facility] ALANINE AMINOTRANSFERASE 2022-12-14 10:30:00 Rosa [facility] ASPARTATE AMINOTRANSFERASE 2022-12-14 10:30:00 Rosa Maria Orantes [facility] URIC ACID 2022-12-14 10:30:00 Rosa Maria Orantes [facility] PROTHROMBIN TIME 2022-12-14 10:30:00 Rosa Maria Orantes [facility] APTT 2022-12-14 10:30:00 Lamberto Rosa Maria [facility] D DIMER 2022-12-14 10:30:00 Rosa Maria Orantes [facility] FIBRINOGEN ACTIVITY 2022-12-14 10:30:00 Rosa Maria Orantes [facility] NT PRO BNP 2022-12-14 10:30:00 Rosa Maria Orantes [facility] Results CBC 2022-12-14 10:30:00 Rosa Maria Orantes [facility] MANUAL DIFFERENTIAL 2022-12-14 10:30:00 Rosa Maria Orantes [facility] SERUM CREATININE 2022-12-14 10:30:00 Rosa Maria Orantes [facility] .GLOMERULAR FILTRATION 2022-12-14 10:30:00 Rosa Maria Orantes [facility] [place] ANION GAP 2022-12-14 10:30:00 Rosa Maria Orantes [facility] POC GLUCOSE SCREEN 2022-12-14 03:29:00 Roshan [facility] POC GLUCOSE SCREEN 2022-12-14 00:07:00 [facility] BASIC METABOLIC PANEL, 2022-12-13 23:35:00 Rosa Maria Orantes [facility] CALCIUM TOTAL [facility] GLUCOSE LEVEL 2022-12-13 23:35:00 Rosa Maria Orantes [facility] BLOOD UREA NITROGEN 2022-12-13 23:35:00 Rosa Maria Orantes [facility] ELECTROLYTE PANEL 2022-12-13 23:35:00 [facility] SERUM CREATININE 2022-12-13 23:35:00 Rosa Maria Orantes [facility] .GLOMERULAR FILTRATION 2022-12-13 23:35:00 Rosa Maria Orantes [facility] CALCIUM LEVEL TOTAL 2022-12-13 23:35:00 Rosa Maria Orantes [facility] POC GLUCOSE SCREEN 2022-12-13 19:15:00 [facility] GENERAL LABORATORY ADD ON 2022-12-13 15:46:00 Rosa Maria Orantes [facility] TEST [facility] ECHOCARDIOGRAM 2D COMPLETE 2022-12-13 15:29:24 David [facility] POC GLUCOSE SCREEN 2022-12-13 14:15:00 [facility] TROPONIN T 2022-12-13 09:42:00 David Nguyen o f [facility] BASIC METABOLIC PANEL, 2022-12-13 09:42:00 Rhea Caldwell [facility] CALCIUM IONIZED [facility] MAGNESIUM LEVEL 2022-12-13 09:42:00 Rhea Caldwell [facility] PHOSPHORUS LEVEL 2022-12-13 09:42:00 Rhea Caldwell [facility] COMPLETE BLOOD COUNT W/ 2022-12-13 09:42:00 [facility] DIFFERENTIAL [facility] GLUCOSE LEVEL 2022-12-13 09:42:00 Rhea Caldwell [facility] BLOOD UREA NITROGEN 2022-12-13 09:42:00 Rhea Caldwell [facility] ELECTROLYTE PANEL 2022-12-13 09:42:00 Rhea Caldwell [facility] SERUM CREATININE 2022-12-13 09:42:00 Rhea Caldwell [facility] .GLOMERULAR FILTRATION 2022-12-13 09:42:00 Rhea Caldwell [facility] [place] RATE [facility] CALCIUM IONIZED, VENOUS 2022-12-13 09:42:00 Rhea Caldwell [facility] Results CBC 2022-12-13 09:42:00 Rhea Caldwell [facility] MANUAL DIFFERENTIAL 2022-12-13 09:42:00 Rhea Caldwell [facility] NT PRO BNP 2022-12-13 09:42:00 Rhea Caldwell [facility] POC GLUCOSE SCREEN 2022-12-13 05:58:00 [facility] [place] TROPONIN T 2022-12-13 05:21:00 David Nguyen o f [facility] POC GLUCOSE SCREEN 2022-12-13 04:23:00 Antonio Diego [facility] Center CT CHEST PULMONARY 2022-12-13 03:24:37 David Nguyen [facility] EMBOLISM W CONTRAST [facility] XR CHEST 1 VW 2022-12-13 02:34:16 David Nguyen [facility] BLOODCULTURE 2022-12-13 02:19:00 [facility] COVID-19 (SARS-COV-2) 2022-12-13 02:19:00 David Nguyen [facility] ASYMPTOMATIC-LT [facility] TROPONIN T 2022-12-13 01:55:00 [facility] CREATINE KINASE 2022-12-13 01:55:00 [facility] CKMB 2022-12-13 01:55:00 [facility] MAGNESIUM LEVEL 2022-12-13 01:55:00 [facility] PHOSPHORUS LEVEL 2022-12-13 01:55:00 [facility] COMPREHENSIVE METABOLIC 2022-12-13 01:55:[address] [facility] NT PRO BNP 2022-12-13 01:55:00 [facility] COMPLETE BLOOD COUNT W/ 2022-12-13 01:55:00 [facility] DIFFERENTIAL [facility] PROTHROMBIN TIME 2022-12-13 01:55:00 [facility] APTT 2022-12-13 01:55:00 [facility] GLUCOSE LEVEL 2022-12-13 01:55:00 [facility] BLOOD UREA NITROGEN 2022-12-13 01:55:00 [facility] ELECTROLYTE PANEL 2022-12-13 01:55:00 [facility] SERUM CREATININE 2022-12-13 01:55:00 [facility] .GLOMERULAR FILTRATION 2022-12-13 01:55:00 David Nguyen [facility] CALCIUM LEVEL TOTAL 2022-12-13 01:55:00 David Nguyen [facility] ALBUMIN LEVEL 2022-12-13 01:55:00 David Nguyen [place] [facility] ALKALINE PHOSPHATASE 2022-12-13 01:55:00 David Nguyen [facility] ALANINE AMINOTRANSFERASE 2022-12-13 01:55:00 David Nguyen [facility] ASPARTATE AMINOTRANSFERASE 2022-12-13 01:55:00 David Nguyen [facility] TOTAL PROTEIN 2022-12-13 01:55:00 David Nguyen o [facility] FRACTIONATED BILIRUBIN 2022-12-13 01:55:00 David Nguyen [facility] Results CBC 2022-12-13 01:55:00 David Nguyen o [facility] MANUAL DIFFERENTIAL 2022-12-13 01:55:00 [facility] BLOODCULTURE 2022-12-13 01:55:00 David Nguyen [facility] POC GLUCOSE SCREEN 2022-12-13 01:46:00 [facility], 12-LEAD (PORTABLE) 2022-12-13 00:00:00 David Nguyen [facility] ME DIAGNOSTIC BONE MARROW 2022-12-12 15:20:07 [facility] HEMATOPATHOLOGY BONE 2022-12-12 15:19:00 Antonio Diego [facility] MARROW INTERPRETATION MD Fatuma wynne [facility] [place] HEMATOPATHOLOGY BONE 2022-12-12 15:19:00 Antonio Digeo [facility] MARROW DIFFERENTIAL [facility] HP MD TP53 COLLECTION, 2022-12-12 15:18:00 Edinson, Shailee M [facility] HP CG CHROMOSOME ANALYSIS 2022-12-12 15:18:00 Dang Neves U [facility] HP FC FLOW CYTOMETRY BLOOD 2022-12-12 15:18:00 Dang Neves [facility] HP MOLECULAR BLOOD 2022-12-12 15:18:00 Dang Neves [facility] HP CYTOGENETICS BLOOD 2022-12-12 15:18:00 Dang Neves [facility] HP FC MRD AML 2022-12-12 15:18:00 Dang Neves [facility] INTERPRETATION AND REPORT [place] [facility] TYPE AND SCREEN 2022-12-12 14:03:00 Dang Neves [facility] COMPLETE BLOOD COUNT W/ 2022-12-12 14:03:00 Dang [facility] DIFFERENTIAL [facility] TOTAL PROTEIN 2022-12-12 14:03:00 Dang Neves [facility] ALBUMIN LEVEL 2022-12-12 14:03:00 Dang Neves [facility] CALCIUM LEVEL TOTAL 2022-12-12 14:03:00 Dang Neves [facility] PHOSPHORUS LEVEL 2022-12-12 14:03:00 Dang Neves [facility] GLUCOSE, RANDOM 2022-12-12 14:03:00 Dang Neves [facility] BLOOD UREA NITROGEN 2022-12-12 14:03:00 Dang Neves [facility] SERUM CREATININE 2022-12-12 14:03:00 Dang Neves [facility] URIC ACID 2022-12-12 14:03:00 Dang Neves [facility] FRACTIONATED BILIRUBIN 2022-12-12 14:03:00 Dang Neves [facility] ALKALINE PHOSPHATASE 2022-12-12 14:03:00 Dang Neves [facility] LACTATE DEHYDROGENASE 2022-12-12 14:03:00 Dang Neves [facility] ALANINE AMINOTRANSFERASE 2022-12-12 14:03:00 Dang Neves [facility] ELECTROLYTE PANEL 2022-12-12 14:03:00 Dang Neves [facility] MAGNESIUM LEVEL 2022-12-12 14:03:00 Dang Neves [facility] PERIPHERAL SMEAR FOR BONE 2022-12-12 14:03:00 Dang Neves [facility] MARROW [facility] Results CBC 2022-12-12 14:03:00 Dang Neves [facility] MANUAL DIFFERENTIAL 2022-12-12 14:03:00 Dang Neves [facility] ABORH 2022-12-12 14:03:00 Dnag Neves [facility] ANTIBODY SCREEN 2022-12-12 14:03:00 Dang Neves [facility] SERUM CREATININE 2022-12-12 14:03:00 Dang Neves [facility] .GLOMERULAR FILTRATION 2022-12-12 14:03:00 Dang Neves [facility] RATE [facility] TMP INTERPRETATION 2022-12-12 14:03:00 Dang Neves [facility] ANTIBODY SCREEN NEGATIVE MD [facility] CLOT EXPIRATION DATE 2022-12-12 14:03:00 Dang Neves [facility] TMP CROSSMATCH 2022-12-12 14:03:00 Dang Neves [facility] INTERPRETATION [facility] TRANSFUSE RED BLOOD CELLS 2022-12-11 18:20:00 Shellie Almaraz [facility] PREPARE RBC 2022-12-11 13:23:00 Shellie Almaraz [facility] PRBC PRODUCT READY FOR 2022-12-11 13:23:00 Shellie [facility]az [facility] DIRECTOR DECISION SUPPORT [facility] TYPE AND SCREEN 2022-12-11 12:17:00 Dang Neves [facility] COMPLETE BLOOD COUNT W/ 2022-12-11 12:17:00 Dang Neves [facility] DIFFERENTIAL [facility] TOTAL PROTEIN 2022-12-11 12:17:00 Dang Neves [facility] ALBUMIN LEVEL 2022-12-11 12:17:00 Dang Neves [facility] CALCIUM LEVEL TOTAL 2022-12-11 12:17:00 Dang Neves [facility] PHOSPHORUS LEVEL 2022-12-11 12:17:00 Dang Neves [facility] GLUCOSE, RANDOM 2022-12-11 12:17:00 Dang Neves [facility] BLOOD UREA NITROGEN 2022-12-11 12:17:00 Dang Neves [facility] SERUM CREATININE 2022-12-11 12:17:00 Dang Neves [facility] URIC ACID 2022-12-11 12:17:00 Dang Neves [facility] FRACTIONATED BILIRUBIN 2022-12-11 12:17:00 Dang Neves [facility] ALKALINE PHOSPHATASE 2022-12-11 12:17:00 Dang Neves [facility] LACTATE DEHYDROGENASE 2022-12-11 12:17:00 Dang Neves [facility] ALANINE AMINOTRANSFERASE 2022-12-11 12:17:00 Dang Neves [facility] ELECTROLYTE PANEL 2022-12-11 12:17:00 Dang Neves [facility] MAGNESIUM LEVEL 2022-12-11 12:17:00 Dang Neves [facility] Results CBC 2022-12-11 12:17:00 Dang Neves [facility] MANUAL DIFFERENTIAL 2022-12-11 12:17:00 Dang Neves [facility] ABORH 2022-12-11 12:17:00 Dang Neves [facility] ANTIBODY SCREEN 2022-12-11 12:17:00 Dang Neves [facility] SERUM CREATININE 2022-12-11 12:17:00 Dang Neves [facility] .GLOMERULAR FILTRATION 2022-12-11 12:17:00 Dang Neves [facility] CLOT EXPIRATION DATE 2022-12-11 12:17:00 Dang Neves [facility] TMP INTERPRETATION 2022-12-11 12:17:00 Dang Neves [facility] ANTIBODY SCREEN NEGATIVE MD Estrada [facility] MAGNESIUM LEVEL 2022-12-10 17:08:00 Dang Neves [facility] POTASSIUM LEVEL 2022-12-10 17:08:00 Dang Neves [facility] BLOOD UREA NITROGEN 2022-12-10 17:08:00 Dang Neves [facility] SERUM CREATININE 2022-12-10 17:08:00 Dang Neves [facility] SERUM CREATININE 2022-12-10 17:08:00 Dang Neves [facility] .GLOMERULAR FILTRATION 2022-12-10 17:08:00 Dang Neves [facility] [place] MAGNESIUM LEVEL 2022-12-09 17:46:00 Dang Neves [facility] POTASSIUM LEVEL 2022-12-09 17:46:00 Dang Neves [facility] BLOOD UREA NITROGEN 2022-12-09 17:46:00 Dang Neves [facility] SERUM CREATININE 2022-12-09 17:46:00 Dang Neves [facility] SERUM CREATININE 2022-12-09 17:46:00 Dang Neves [facility] .GLOMERULAR FILTRATION 2022-12-09 17:46:00 Dang Neves [facility] POC GLUCOSE SCREEN 2022-12-08 19:41:00 [facility]UCOSE SCREEN 2022-12-08 13:52:00 [facility] TYPE AND SCREEN 2022-12-08 06:50:00 Brandie Antonio [facility] GLUCOSE, RANDOM 2022-12-08 06:50:00 [facility] CALCIUM LEVEL TOTAL 2022-12-08 06:50:00 Sheela Jackson [facility] BLOOD UREA NITROGEN 2022-12-08 06:50:00 Manuel Sheela [facility] SERUM CREATININE 2022-12-08 06:50:00 Manuel Sheela [facility] SODIUM LEVEL 2022-12-08 06:50:00 Manuel [facility] POTASSIUM LEVEL 2022-12-08 06:50:00 Manuel [facility] Center MAGNESIUM LEVEL 2022-12-08 06:50:00 Manuel [facility] Center CHLORIDE LEVEL 2022-12-08 06:50:00 Manuel Sheela [facility] CARBON DIOXIDE LEVEL 2022-12-08 06:50:00 Manuel Sheela [facility] TOTAL PROTEIN 2022-12-08 06:50:00 Manuel [facility] ALBUMIN LEVEL 2022-12-08 06:50:00 Manuel [facility] PHOSPHORUS LEVEL 2022-12-08 06:50:00 Manuel [facility] FRACTIONATED BILIRUBIN 2022-12-08 06:50:00 Manuel Sheela [facility] ALKALINE PHOSPHATASE 2022-12-08 06:50:00 Manuel [facility] ALANINE AMINOTRANSFERASE 2022-12-08 06:50:00 [facility] 2022-12-08 06:50:00 Manuel [facility] ASPARTATE AMINOTRANSFERASE 2022-12-08 06:50:00 Sonia Hong [facility] APTT 2022-12-08 06:50:00 Dang Neves [facility] PROTHROMBIN TIME 2022-12-08 06:50:00 Dang Neves [facility] COMPLETE BLOOD COUNT W/ 2022-12-08 06:50:00 Zamzam Judge [facility] DIFFERENTIAL [facility] ABORH 2022-12-08 06:50:00 Diego, [facility] ANTIBODY SCREEN 2022-12-08 06:50:00 Brandie [facility] SERUM CREATININE 2022-12-08 06:50:00 [facility] [facility] .GLOMERULAR FILTRATION 2022-12-08 06:50:00 Manuel [facility] Results CBC 2022-12-08 06:50:00 Zamzam Judge [facility] [place] LACTATE DEHYDROGENASE 2022-12-08 06:50:00 Sheela Jackson [facility] er Center DIFFERENTIAL CANCEL 2022-12-08 06:50:00 Zamzam Judge [facility] er Center ANION GAP 2022-12-08 06:50:00 Sheela Jackson [facility] er Center FIBRINOGEN ACTIVITY 2022-12-08 06:50:00 Dang Neves [facility] er Center CLOT EXPIRATION DATE 2022-12-08 06:50:00 Antonio Diego [facility] Center TMP INTERPRETATION 2022-12-08 06:50:00 Antonio Diego [facility] ANTIBODY SCREEN NEGATIVE MD Estrada [facility] TMP CROSSMATCH 2022-12-08 06:50:00 Antonio Diego [place] [facility] [place] INTERPRETATION [facility] er Center POC GLUCOSE SCREEN 2022-12-08 03:44:00 Jennifer Calle [facility] er Center POTASSIUM LEVEL 2022-12-07 23:35:00 Dang Neves [facility] er Center POC GLUCOSE SCREEN 2022-12-07 23:28:00 Jennifer Calle [facility] er Center POC GLUCOSE SCREEN 2022-12-07 18:02:00 Jennifer Calle [facility] Center POC GLUCOSE SCREEN 2022-12-07 15:02:00 Jennifer Calle [facility] er Center POC GLUCOSE SCREEN 2022-12-07 10:27:00 Jennifer Calle [facility] er Center POC GLUCOSE SCREEN 2022-12-07 08:56:00 Jennifer Calle [facility] er Center POC CRITICAL 2022-12-07 08:19:00 Jennifer Calle o f [facility] er Center POC GLUCOSE SCREEN 2022-12-07 08:19:00 [facility]ITICAL 2022-12-07 08:02:00 Alva [facility] POC GLUCOSE SCREEN 2022-12-07 08:02:00 [facility] GLUCOSE, RANDOM 2022-12-07 06:42:00 [facility] CALCIUM LEVEL TOTAL 2022-12-07 06:42:00 Sheela Jackson [facility] BLOOD UREA NITROGEN 2022-12-07 06:42:00 Manuel Sheela [facility] SERUM CREATININE 2022-12-07 06:42:00 [facility] SODIUM LEVEL 2022-12-07 06:42:00 [facility] POTASSIUM LEVEL 2022-12-07 06:42:00 [facility] MAGNESIUM LEVEL 2022-12-07 06:42:00 [facility] CHLORIDE LEVEL 2022-12-07 06:42:00 [facility] CARBON DIOXIDE LEVEL 2022-12-07 06:42:00 Manuel Sheela [facility] TOTAL PROTEIN 2022-12-07 06:42:00 [facility] ALBUMIN LEVEL 2022-12-07 06:42:00 [facility] PHOSPHORUS LEVEL 2022-12-07 06:42:00 [facility] FRACTIONATED BILIRUBIN 2022-12-07 06:42:00 Manuel Sheela [facility] ALKALINE PHOSPHATASE 2022-12-07 06:42:00 [place], Sheela [facility] ALANINE AMINOTRANSFERASE 2022-12-07 06:42:00 [facility] URIC ACID 2022-12-07 06:42:00 Sheela Jackson [facility] ASPARTATE AMINOTRANSFERASE 2022-12-07 06:42:00 Sonia Hong [facility] APTT 2022-12-07 06:42:00 Dang Neves [facility] PROTHROMBIN TIME 2022-12-07 06:42:00 Dang Neves [facility] COMPLETE BLOOD COUNT W/ 2022-12-07 06:42:00 Zamzam Judge [facility] DIFFERENTIAL [facility] SERUM CREATININE 2022-12-07 06:42:00 Sheela Jackson [facility] .GLOMERULAR FILTRATION 2022-12-07 06:42:00 Sheela Jackson [facility] RATE [facility] Results CBC 2022-12-07 06:42:00 Zamzam Judge [facility] MANUAL DIFFERENTIAL 2022-12-07 06:42:00 Zamzam Judge [facility] ANION GAP 2022-12-07 06:42:00 Sheela Jackson [facility] FIBRINOGEN ACTIVITY 2022-12-07 06:42:00 Dang Neves [facility] LACTATE DEHYDROGENASE 2022-12-07 06:42:00 Sheela Jackson [facility] er Center POC GLUCOSE SCREEN 2022-12-07 03:11:00 Jennifer Calle [facility] er Center POC GLUCOSE SCREEN 2022-12-06 23:34:00 Jennifer Calle [facility] er Center POC GLUCOSE SCREEN 2022-12-06 18:35:00 Jennifer Calle [facility] er Center POC GLUCOSE SCREEN 2022-12-06 14:11:00 Jennifer Calle [facility] POSACONAZOLE LEVEL, SERUM 2022-12-06 14:02:00 [facility] GLUCOSE, RANDOM 2022-12-06 06:28:00 [facility] CALCIUM LEVEL TOTAL 2022-12-06 06:28:00 Manuel Sheela [facility] BLOOD UREA NITROGEN 2022-12-06 06:28:00 Manuel Sheela [facility] SERUM CREATININE 2022-12-06 06:28:00 [facility] SODIUM LEVEL 2022-12-06 06:28:00 [facility] POTASSIUM LEVEL 2022-12-06 06:28:00 [facility] MAGNESIUM LEVEL 2022-12-06 06:28:00 [facility] CHLORIDE LEVEL 2022-12-06 06:28:00 [facility] CARBON DIOXIDE LEVEL 2022-12-06 06:28:00 Sheela Jackson [facility] TOTAL PROTEIN 2022-12-06 06:28:00 [facility] ALBUMIN LEVEL 2022-12-06 06:28:00 [facility] PHOSPHORUS LEVEL 2022-12-06 06:28:00 [facility] FRACTIONATED BILIRUBIN 2022-12-06 06:28:00 Manuel Sheela [facility] ALKALINE PHOSPHATASE 2022-12-06 06:28:00 Manuel [facility] ALANINE AMINOTRANSFERASE 2022-12-06 06:28:00 [facility] URIC ACID 2022-12-06 06:28:00 Sheela Jackson [facility] ASPARTATE AMINOTRANSFERASE 2022-12-06 06:28:00 Sonia Hong [facility] APTT 2022-12-06 06:28:00 Dang Neves [facility] PROTHROMBIN TIME 2022-12-06 06:28:00 Dang Neves [facility] COMPLETE BLOOD COUNT W/ 2022-12-06 06:28:00 Zamzam Judge [facility] DIFFERENTIAL [facility] SERUM CREATININE 2022-12-06 06:28:00 Sheela Jackson [facility] .GLOMERULAR FILTRATION 2022-12-06 06:28:00 Sheela Jackson [facility] RATE [facility] Results CBC 2022-12-06 06:28:00 Zamzam Judge [facility] LACTATE DEHYDROGENASE 2022-12-06 06:28:00 Sheela Jackson [facility] ANION GAP 2022-12-06 06:28:00 Sheela Jackson [facility] D DIMER 2022-12-06 06:28:00 Dang Neves [facility] FIBRINOGEN ACTIVITY 2022-12-06 06:28:00 Dang Neves [facility] DIFFERENTIAL CANCEL 2022-12-06 06:28:00 Zamzam Judge [facility] er Center POC GLUCOSE SCREEN 2022-12-06 03:17:00 Jennifer Calle [facility] er Center POC GLUCOSE SCREEN 2022-12-06 00:28:00 Jennifer Calle [facility] er Center US LIVER 2022-12-05 22:13:06 Jaimie Hicks [facility] POC GLUCOSE SCREEN 2022-12-05 18:28:00 Jennifer Calle [facility] er Center POC GLUCOSE SCREEN 2022-12-05 14:20:00 Alva [facility] er Center TYPE AND SCREEN 2022-12-05 07:41:00 Brandie Antonio [facility] er Center GLUCOSE, RANDOM 2022-12-05 07:41:00 Manuel [facility] [place] CALCIUM LEVEL TOTAL 2022-12-05 07:41:00 Manuel Sheela [facility] BLOOD UREA NITROGEN 2022-12-05 07:41:00 Manuel Sheela [facility] SERUM CREATININE 2022-12-05 07:41:00 [facility] SODIUM LEVEL 2022-12-05 07:41:00 [facility] POTASSIUM LEVEL 2022-12-05 07:41:00 [facility] MAGNESIUM LEVEL 2022-12-05 07:41:00 [facility] CHLORIDE LEVEL 2022-12-05 07:41:00 [facility] CARBON DIOXIDE LEVEL 2022-12-05 07:41:00 Manuel Sheela [facility] TOTAL PROTEIN 2022-12-05 07:41:00 [facility] ALBUMIN LEVEL 2022-12-05 07:41:00 [facility] PHOSPHORUS LEVEL 2022-12-05 07:41:00 [facility] FRACTIONATED BILIRUBIN 2022-12-05 07:41:00 Manuel [facility] ALKALINE PHOSPHATASE 2022-12-05 07:41:00 [place], Sheela [facility] ALANINE AMINOTRANSFERASE 2022-12-05 07:41:00 [facility] URIC ACID 2022-12-05 07:41:00 Sheela Jackson [facility] ASPARTATE AMINOTRANSFERASE 2022-12-05 07:41:00 Sonia Hong [facility] APTT 2022-12-05 07:41:00 Dang Neves [facility] PROTHROMBIN TIME 2022-12-05 07:41:00 Dang Neves [facility] COMPLETE BLOOD COUNT W/ 2022-12-05 07:41:00 Zamzam Judge [facility] DIFFERENTIAL [facility] ABORH 2022-12-05 07:41:00 Brandie [facility] ANTIBODY SCREEN 2022-12-05 07:41:00 Brandie [facility] SERUM CREATININE 2022-12-05 07:41:00 Manuel Sheela [facility] .GLOMERULAR FILTRATION 2022-12-05 07:41:00 Sheela Jackson [facility] RATE [facility] Results CBC 2022-12-05 07:41:00 Zamzam Judge [facility] FIBRINOGEN ACTIVITY 2022-12-05 07:41:00 Dang Neves [facility] DIFFERENTIAL CANCEL 2022-12-05 07:41:00 Zamzam Judge [facility] LACTATE DEHYDROGENASE 2022-12-05 07:41:00 Sheela Jackson [facility] ANION GAP 2022-12-05 07:41:00 Sheela Jackson [facility] CLOT EXPIRATION DATE 2022-12-05 07:41:00 Antonio Diego [facility] TMP INTERPRETATION 2022-12-05 07:41:00 Antonio Diego [facility] ANTIBODY SCREEN NEGATIVE MD Sean cardona [facility] GASTROINTESTINAL MULTIPLEX 2022-12-05 03:55:00 [facility] GASTROINTESTINAL MULTIPLEX 2022-12-05 03:55:00 Jaimie Hicks [facility] PANEL [facility] Center POC GLUCOSE SCREEN 2022-12-05 03:23:00 Jennifer Calle [facility] er Center POC GLUCOSE SCREEN 2022-12-05 00:04:00 [facility] POC GLUCOSE SCREEN 2022-12-04 18:27:00 [facility] POC GLUCOSE SCREEN 2022-12-04 14:37:00 Jennifer Calle [facility] er Center POC GLUCOSE SCREEN 2022-12-04 14:03:00 Jennifer Calle [facility] [place] GLUCOSE, RANDOM 2022-12-04 09:57:00 [facility] CALCIUM LEVEL TOTAL 2022-12-04 09:57:00 Sheela Jackson [facility] BLOOD UREA NITROGEN 2022-12-04 09:57:00 Sheela Jackson [facility] SERUM CREATININE 2022-12-04 09:57:00 [facility] SODIUM LEVEL 2022-12-04 09:57:00 [facility] POTASSIUM LEVEL 2022-12-04 09:57:00 [facility] MAGNESIUM LEVEL 2022-12-04 09:57:00 Manuel [facility] er Center CHLORIDE LEVEL 2022-12-04 09:57:00 Manuel [facility] Center CARBON DIOXIDE LEVEL 2022-12-04 09:57:00 Sheela Jackson [facility] TOTAL PROTEIN 2022-12-04 09:57:00 [facility] ALBUMIN LEVEL 2022-12-04 09:57:00 [facility] PHOSPHORUS LEVEL 2022-12-04 09:57:00 [facility] FRACTIONATED BILIRUBIN 2022-12-04 09:57:00 [facility] ALKALINE PHOSPHATASE 2022-12-04 09:57:00 Manuel [facility] ALANINE AMINOTRANSFERASE 2022-12-04 09:57:00 Sheela Jackson [facility] URIC ACID 2022-12-04 09:57:00 [facility] LACTATE DEHYDROGENASE 2022-12-04 09:57:00 Manuel Sheela [facility] ASPARTATE AMINOTRANSFERASE 2022-12-04 09:57:00 Sonia Hong [facility] APTT 2022-12-04 09:57:00 Dang Neves [facility] PROTHROMBIN TIME 2022-12-04 09:57:00 Dang Neves [facility] COMPLETE BLOOD COUNT W/ 2022-12-04 09:57:00 Zamzam Judge [facility] DIFFERENTIAL [facility] SERUM CREATININE 2022-12-04 09:57:00 Manuel Sheela [facility] .GLOMERULAR FILTRATION 2022-12-04 09:57:00 Manuel Sheela [facility] RATE [facility] Results CBC 2022-12-04 09:57:00 Zamzam Judge [facility] ANION GAP 2022-12-04 09:57:00 [facility] FIBRINOGEN ACTIVITY 2022-12-04 09:57:00 Dang Neves [facility] [place] DIFFERENTIAL CANCEL 2022-12-04 09:57:00 Zamzam Judge [facility] er Center POC GLUCOSE SCREEN 2022-12-04 04:36:00 Jennifer Calle [facility] [place] [facility] CHEST WO CONTRAST 2022-12-04 04:29:56 Jennifer Calle [facility] er Center POC GLUCOSE SCREEN 2022-12-04 00:31:00 [facility] POC GLUCOSE SCREEN 2022-12-03 19:18:00 Jennifer Calle [facility] [place] US RENAL 2022-12-03 14:50:00 Jaimie Hicks [facility] er Center POC GLUCOSE SCREEN 2022-12-03 14:12:00 Jennifer Calle [facility] [place] GLUCOSE, RANDOM 2022-12-03 08:36:00 [facility] [place] CALCIUM LEVEL TOTAL 2022-12-03 08:36:00 Sheela Jackson [facility] BLOOD UREA NITROGEN 2022-12-03 08:36:00 Sheela Jackson [facility] SERUM CREATININE 2022-12-03 08:36:00 Manuel Sheela [facility] er Center SODIUM LEVEL 2022-12-03 08:36:00 [facility] POTASSIUM LEVEL 2022-12-03 08:36:00 [facility] MAGNESIUM LEVEL 2022-12-03 08:36:00 Manuel [facility] er Center CHLORIDE LEVEL 2022-12-03 08:36:00 [facility] CARBON DIOXIDE LEVEL 2022-12-03 08:36:00 Sheela Jackson [facility] TOTAL PROTEIN 2022-12-03 08:36:00 Manuel Sheela [facility] ALBUMIN LEVEL 2022-12-03 08:36:00 [facility] PHOSPHORUS LEVEL 2022-12-03 08:36:00 [facility] FRACTIONATED BILIRUBIN 2022-12-03 08:36:00 Manuel Sheela [facility] ALKALINE PHOSPHATASE 2022-12-03 08:36:00 Manuel Sheela [facility] ALANINE AMINOTRANSFERASE 2022-12-03 08:36:00 Sheela Jackson [facility] URIC ACID 2022-12-03 08:36:00 [facility] LACTATE DEHYDROGENASE 2022-12-03 08:36:00 Sheela Jackson [facility] D DIMER 2022-12-03 08:36:00 [facility] ASPARTATE AMINOTRANSFERASE 2022-12-03 08:36:00 Sonia Hong [facility] COMPLETE BLOOD COUNT W/ 2022-12-03 08:36:00 Zamzam Judge [facility] DIFFERENTIAL [facility] FIBRINOGEN ACTIVITY 2022-12-03 08:36:00 Jennifer Calle [facility] SERUM CREATININE 2022-12-03 08:36:00 Manuel Sheela [facility] .GLOMERULAR FILTRATION 2022-12-03 08:36:00 Sheela Jackson [facility] RATE [facility] Results CBC 2022-12-03 08:36:00 Zamzam Judge [facility] PROTHROMBIN TIME 2022-12-03 08:36:00 [facility] APTT 2022-12-03 08:36:00 Sheela Jackson [facility] [place] ANION GAP 2022-12-03 08:36:00 Sheela Jackson [facility] DIFFERENTIAL CANCEL 2022-12-03 08:36:00 Nu Zamzam Maddox [facility] [place] LOWER RESPIRATORY CULTURE 2022-12-03 08:36:00 Kimmie Murry [facility] W/ GRAM STAIN [facility] POC GLUCOSE SCREEN 2022-12-03 03:43:00 Jennifer Calle [facility] Center POC GLUCOSE SCREEN 2022-12-03 00:59:00 Jennifer Calle [facility] TRANSFUSE RED BLOOD CELLS 2022-12-02 22:30:00 [facility] DIFFICILE DNA ASSAY 2022-12-02 22:14:00 Kimmie [facility] C DIFFICILE DNA ASSAY PATH 2022-12-02 22:14:00 Kimmie Murry [facility] REVIEW [facility] Center POC GLUCOSE SCREEN 2022-12-02 21:54:00 Jennifer Calle [facility] er Center POTASSIUM LEVEL 2022-12-02 21:24:00 Jennifer Calle o f [facility] er Center POC GLUCOSE SCREEN 2022-12-02 18:54:00 Jennifer Calle [facility] er Center US LEG VENOUS DOPPLER 2022-12-02 17:24:53 Jaimie Hicks [facility] BILATERAL [facility] er Center CT CHEST WO CONTRAST 2022-12-02 16:20:00 Jaimie Hicks [facility] er Center POC GLUCOSE SCREEN 2022-12-02 14:43:00 Jennifer Calle [facility] er Center TRANSFUSE RED BLOOD CELLS 2022-12-02 11:47:00 [facility] BASIC METABOLIC PANEL, 2022-12-02 10:36:00 Imelda Arnold [facility] CALCIUM IONIZED [facility] GLUCOSE LEVEL 2022-12-02 10:36:00 Imelda Arnold [place] [facility] ELECTROLYTE PANEL 2022-12-02 10:36:00 [facility] SERUM CREATININE 2022-12-02 10:36:00 [facility] .GLOM[facility] FILTRATION 2022-12-02 10:36:00 Imelda Arnold [facility] RATE [facility] CALCIUM IONIZED, VENOUS 2022-12-02 10:36:00 Imelda Arnold [facility] BLOOD UREA NITROGEN 2022-12-02 10:36:00 Imelda Arnold [facility] MAGNESIUM LEVEL 2022-12-02 10:36:00 Imelda Arnold [facility] PHOSPHORUS LEVEL 2022-12-02 10:36:00 [facility] POC GLUCOSE SCREEN 2022-12-02 10:28:00 [facility] RBC 2022-12-02 10:05:00 Jennifer Calle o [facility] PRBC PRODUCT READY FOR 2022-12-02 10:05:00 Jennifer Calle [facility] DIRECTOR DECISION SUPPORT [facility] GLUCOSE, RANDOM 2022-12-02 08:30:00 Sheela Jackson [facility] CALCIUM LEVEL TOTAL 2022-12-02 08:30:00 Sheela Jackson [facility] BLOOD UREA NITROGEN 2022-12-02 08:30:00 Sheela Jackson [facility] SERUM CREATININE 2022-12-02 08:30:00 [facility] L[facility] 2022-12-02 08:30:00 [facility] POTASSIUM LEVEL 2022-12-02 08:30:00 [facility] MAGNESIUM LEVEL 2022-12-02 08:30:00 [facility] CHLORIDE LEVEL 2022-12-02 08:30:00 [facility] CARBON DIOXIDE LEVEL 2022-12-02 08:30:00 Manuel [facility] TOTAL PROTEIN 2022-12-02 08:30:00 [facility] ALBUMIN LEVEL 2022-12-02 08:30:00 [facility] PHOSPHORUS LEVEL 2022-12-02 08:30:00 [facility] FRACTIONATED BILIRUBIN 2022-12-02 08:30:00 [facility] ALKALINE PHOSPHATASE 2022-12-02 08:30:00 Manuel [facility] ALANINE AMINOTRANSFERASE 2022-12-02 08:30:00 [facility] URIC ACID 2022-12-02 08:30:00 [facility] LACTATE DEHYDROGENASE 2022-12-02 08:30:00 Manuel Sheela [facility] ASPARTATE AMINOTRANSFERASE 2022-12-02 08:30:00 Sonia Hong [facility] COMPLETE BLOOD COUNT W/ 2022-12-02 08:30:00 Zamzam Judge [facility] DIFFERENTIAL [facility] FIBRINOGEN ACTIVITY 2022-12-02 08:30:00 Jennifer Calle [facility] SERUM CREATININE 2022-12-02 08:30:00 Sheela Jackson [facility] .GLOMERULAR FILTRATION 2022-12-02 08:30:00 Sheela Jackson [facility] RATE [facility] Results CBC 2022-12-02 08:30:00 Zamzam Judge [facility] ANION GAP 2022-12-02 08:30:00 Sheela Jackson [facility] DIFFERENTIAL CANCEL 2022-12-02 08:30:00 Zamzam Judge [facility] APTT 2022-12-02 08:30:00 [facility] PROT[facility] TIME 2022-12-02 08:30:00 Jennifer Calle [facility] POC GLUCOSE SCREEN 2022-12-02 03:37:00 [facility]SE SCREEN 2022-12-02 00:33:00 Alva [facility] RESPIRATORY VIRAL 2022-12-01 23:42:00 Kimmie Murry [facility] MULTIPLEX PCR PANEL, [facility] NASOPHARYNGEAL SWAB Center POC GLUCOSE SCREEN 2022-12-01 19:08:00 [facility] HP CG CHROMOSOME ANALYSIS 2022-12-01 18:43:00 Zamzam Judge [facility], [facility] HP MD [id number] COLLECTION, 2022-12-01 18:43:00 Zamzam Judge [facility] HP FC FLOW CYTOMETRY BLOOD 2022-12-01 18:43:00 Zamzam Judge [facility] HP CYTOGENETICS BLOOD 2022-12-01 18:43:00 Zamzam Judge [facility] HP CG CHROMOSOME ANALYSIS 2022-12-01 18:43:00 Zamzam Judge [facility] INTERPRETATION AND REPORT MD And [facility] HP MOLECULAR BLOOD 2022-12-01 18:43:00 Zamzam Judge [facility] COLLECTION [facility] HP FC MRD AML 2022-12-01 18:43:00 Zamzam Judge [facility] INTERPRETATION AND REPORT MD Odonnell [facility] HEMATOPATHOLOGY BONE 2022-12-01 18:42:00 Jennifer Calle [facility] MARROW INTERPRETATION MD Fatuma wynne [facility] HEMATOPATHOLOGY BONE 2022-12-01 18:42:00 Jennifer Calle [facility] MARROW DIFFERENTIAL [facility] ME DIAGNOSTIC BONE MARROW 2022-12-01 18:33:56 Zamzam Judge [facility] ASPIRATIONS [facility] ABORH MANUAL 2022-12-01 18:13:00 Jennifer Calle [place] [facility] ANTIBODY SCREEN MANUAL 2022-12-01 18:13:00 Jennifer [facility] CLOT EXPIRATION DATE 2022-12-01 18:13:00 Jennifer Calle [facility] TMP INTERPRETATION MANUAL 2022-12-01 18:13:00 [facility] ANTIBODY SCREEN NEGATIVE MD Estrada [facility] TMP CROSSMATCH 2022-12-01 18:13:00 Jennifer Calle [place] [facility] INTERPRETATION [facility] TRANSFUSION RXN CULTURE 2022-12-01 17:46:00 Cynthia Devine [facility] URINALYSIS WITH 2022-12-01 17:41:00 Cynthia Devnie [facility] MICROSCOPIC IF INDICATED MD Estrada carlito [facility] TRANSFUSION REACTION 2022-12-01 17:01:00 Cynthia Devine [facility] TMP TRANSFUSION REACTION 2022-12-01 17:01:00 Cynthia Devine [facility] INTERPRETATION [facility] POC GLUCOSE SCREEN 2022-12-01 14:34:00 [facility] RED BLOOD CELLS 2022-12-01 11:54:00 [facility] PRE[facility] RBC 2022-12-01 08:09:00 Jennifer Calle [place] [facility] PRBC PRODUCT READY FOR 2022-12-01 08:09:00 Jennifer Calle [facility] DIRECTOR DECISION SUPPORT [facility] PERIPHERAL SMEAR FOR BONE 2022-12-01 06:41:00 Zamzam Judge [facility] MARROW [facility] GLUCOSE, RANDOM 2022-12-01 06:41:00 [facility] 2022-12-01 06:41:00 Sheela Jackson [facility] BLOOD UREA NITROGEN 2022-12-01 06:41:00 Sheela Jackson [facility] SERUM CREATININE 2022-12-01 06:41:00 [facility] SODIUM LEVEL 2022-12-01 06:41:00 [facility] POTASSIUM LEVEL 2022-12-01 06:41:00 [facility] MAGNESIUM LEVEL 2022-12-01 06:41:00 [facility] CHLORIDE LEVEL 2022-12-01 06:41:00 [facility] CARBON DIOXIDE LEVEL 2022-12-01 06:41:00 Sheela Jackson [facility] TOTAL PROTEIN 2022-12-01 06:41:00 [facility] ALBUMIN LEVEL 2022-12-01 06:41:00 [facility] PHOSPHORUS LEVEL 2022-12-01 06:41:00 [facility] FRACTIONATED BILIRUBIN 2022-12-01 06:41:00 Manuel Sheela [facility] ALKALINE PHOSPHATASE 2022-12-01 06:41:00 Sheela Jackson [facility] ALANINE AMINOTRANSFERASE 2022-12-01 06:41:00 [facility] UR[facility] ACID 2022-12-01 06:41:00 Sheela Jackson [facility] LACTATE DEHYDROGENASE 2022-12-01 06:41:00 Sheela Jackson [facility] ASPARTATE AMINOTRANSFERASE 2022-12-01 06:41:00 Sonia Hong [facility] APTT 2022-12-01 06:41:00 Dang Neves [facility] PROTHROMBIN TIME 2022-12-01 06:41:00 Dang Neves [facility] COMPLETE BLOOD COUNT W/ 2022-12-01 06:41:00 Zamzam Judge [facility] DIFFERENTIAL [facility] SERUM CREATININE 2022-12-01 06:41:00 Sheela Jackson [facility] .GLOMERULAR FILTRATION 2022-12-01 06:41:00 Sheela Jackson [facility] RATE [facility] Results CBC 2022-12-01 06:41:00 Zamzam Judge [facility] FIBRINOGEN ACTIVITY 2022-12-01 06:41:00 Dang Neves [facility] ANION GAP 2022-12-01 06:41:00 Sheela Jackson [facility] DIFFERENTIAL CANCEL 2022-12-01 06:41:00 Zamzam Judge [facility] LOWER RESPIRATORY CULTURE 2022-12-01 04:40:00 Tano Girmes [facility] W/ GRAM STAIN Boris Aguilar [facility] POC GLUCOSE SCREEN 2022-12-01 03:24:00 Jennifer Calle [facility] US SCROTUM/TESTICULAR 2022-12-01 01:33:30 Dang [facility] [place] US TESTICULAR DOPPLER 2022-12-01 01:33:30 D[facility] POC GLUCOSE SCREEN 2022-11-30 23:59:00 Jennifer Calle [facility] POTASSIUM LEVEL 2022-11-30 23:45:00 Dang Neves [facility] HSV 1 & 2 QUANTITATIVE, 2022-11-30 23:45:00 [facility] VZV QPCR, PLASMA 2022-11-30 23:45:00 Tano Grimes [facility] HSV/VZV DNA DETECTION 2022-11-30 21:29:00 Tano Grimes [facility] POC GLUCOSE SCREEN 2022-11-30 19:23:00 Jennifer Calle [facility] ANTIBODY SCREEN MANUAL 2022-11-30 18:21:00 Jennifer Calle [facility] ABORH MANUAL 2022-11-30 18:21:00 Jennifer Calle o [facility] CLOT EXPIRATION DATE 2022-11-30 18:21:00 Jennifer Calle [facility] TMP INTERPRETATION MANUAL 2022-11-30 18:21:00 [facility] ANTIBODY S[facility]EN NEGATIVE MD Estrada [facility] TMP CROSSMATCH 2022-11-30 18:21:00 Jennifer Calle [place] [facility] [place] INTERPRETATION [facility] TRANSFUSION RXN CULTURE 2022-11-30 18:06:00 Cynthia Devine [facility] URINALYSIS WITH 2022-11-30 17:19:00 Cynthia Devine [place] [facility] [place] MICROSCOPIC IF INDICATED MD Estrada [facility] TRANSFUSION REACTION 2022-11-30 17:04:00 Cynthia Devine [facility] TMP TRANSFUSION REACTION 2022-11-30 17:04:00 Cynthia Devine [facility] INTERPRETATION [facility] BLOODCULTURE 2022-11-30 17:04:00 Dang Neves [facility] POC GLUCOSE SCREEN 2022-11-30 16:10:00 Jennifer Calle [facility] POC GLUCOSE SCREEN 2022-11-30 14:11:00 Jennifer Calle [facility] TRANSFUSE RED BLOOD CELLS 2022-11-30 13:40:00 Jennifer Calle [facility] PREPARE RBC 2022-11-30 09:28:00 Jennifer Calle [place] [facility] PRBC PRODUCT READY FOR 2022-11-30 09:28:00 Jennifer [facility] DIRECTOR DECISION SUPPORT [facility] GLUCOSE, RANDOM 2022-11-30 07:42:00 [facility] CALCIUM LEVEL TOTAL 2022-11-30 07:42:00 Sheela Jackson [facility] BLOOD UREA NITROGEN 2022-11-30 07:42:00 Sheela Jackson [facility] SERUM CREATININE 2022-11-30 07:42:00 [facility] 2022-11-30 07:42:00 [facility] POTASSIUM LEVEL 2022-11-30 07:42:00 [facility] MAGNESIUM LEVEL 2022-11-30 07:42:00 [facility] CHLORIDE LEVEL 2022-11-30 07:42:00 [facility] CARBON DIOXIDE LEVEL 2022-11-30 07:42:00 Sheela Jackson [facility] TOTAL PROTEIN 2022-11-30 07:42:00 [facility] ALBUMIN LEVEL 2022-11-30 07:42:00 [facility] PHOSPHORUS LEVEL 2022-11-30 07:42:00 [facility] FRACTIONATED BILIRUBIN 2022-11-30 07:42:00 [facility] ALKALINE PHOSPHATASE 2022-11-30 07:42:00 Manuel Sheela [facility] ALANINE AMINOTRANSFERASE 2022-11-30 07:42:00 [facility] URIC ACID 2022-11-30 07:42:00 [facility] LACTATE DEHYDROGENASE 2022-11-30 07:42:00 Sheela Jackson [facility] D DIMER 2022-11-30 07:42:00 [facility] ASPARTATE AMINOTRANSFERASE 2022-11-30 07:42:00 Sonia Hong [facility] COMPLETE BLOOD COUNT W/ 2022-11-30 07:42:00 Zamzam Judge [facility] DIFFERENTIAL [facility] FIBRINOGEN ACTIVITY 2022-11-30 07:42:00 Jennifer Calle [facility] SERUM CREATININE 2022-11-30 07:42:00 Manuel Sheela [facility] .GLOMERULAR FILTRATION 2022-11-30 07:42:00 Sheela Jackson [facility] RATE [facility] Results CBC 2022-11-30 07:42:00 Zamzam Judge [facility] ANION GAP 2022-11-30 07:42:00 FraSheela arias [facility] DIFFERENTIAL CANCEL 2022-11-30 07:42:00 Nu Zamzam Varsha [facility] PROTHROMBIN TIME 2022-11-30 07:42:00 Manuel Sheela [facility] APTT 2022-11-30 07:42:00 Manuel Sheela [facility] POC GLUCOSE SCREEN 2022-11-30 03:18:00 eJnnifer Calle [facility] POC GLUCOSE SCREEN 2022-11-30 00:11:00 [facility] (SARS-COV-2) 2022-11-29 23:15:00 Jennifer Calle [facility] TRANSFUSE PLATELETS 2022-11-29 23:05:00 Jennifer Calle [facility] POC GLUCOSE SCREEN 2022-11-29 22:03:00 Jennifer Calle [facility] BLOODCULTURE 2022-11-29 21:00:00 Dari[facility] PREPARE PLATELETS 2022-11-29 18:19:00 [facility] PRODUCT READY FOR PICK 2022-11-29 18:19:00 Jennifer Calle [facility] XR CHEST 1 VW 2022-11-29 16:36:57 Darien [facility] POC GLUCOSE SCREEN 2022-11-29 14:39:00 Jennifer Calle [facility] Center TYPE AND SCREEN 2022-11-29 07:39:00 Antonio Diego [facility] GLUCOSE, RANDOM 2022-11-29 07:39:00 Manuel Sheela [facility] CALCIUM LEVEL TOTAL 2022-11-29 07:39:00 [place]LO[facility] UREA NITROGEN 2022-11-29 07:39:00 Manuel [facility] SERUM CREATININE 2022-11-29 07:39:00 [facility] SODIUM LEVEL 2022-11-29 07:39:00 [facility] POTASSIUM LEVEL 2022-11-29 07:39:00 [facility] MAGNESIUM LEVEL 2022-11-29 07:39:00 [facility] CHLORIDE LEVEL 2022-11-29 07:39:00 [facility] CARBON DIOXIDE LEVEL 2022-11-29 07:39:00 Manuel [facility] TOTAL PROTEIN 2022-11-29 07:39:00 [facility] ALBUMIN LEVEL 2022-11-29 07:39:00 [facility] PHOSPHORUS LEVEL 2022-11-29 07:39:00 [facility] FRACTIONATED BILIRUBIN 2022-11-29 07:39:00 Manuel Sheela [facility] ALKALINE PHOSPHATASE 2022-11-29 07:39:00 Manuel [facility] ALANINE AMINOTRANSFERASE 2022-11-29 07:39:00 [facility]IC ACID 2022-11-29 07:39:00 [facility] LACTATE DEHYDROGENASE 2022-11-29 07:39:00 Manuel Sheela [facility] ASPARTATE AMINOTRANSFERASE 2022-11-29 07:39:00 Sonia Hong [facility] APTT 2022-11-29 07:39:00 Dang Neves [facility] PROTHROMBIN TIME 2022-11-29 07:39:00 Dang Neves [facility] COMPLETE BLOOD COUNT W/ 2022-11-29 07:39:00 Zamzam Judge [facility] ABORH 2022-11-29 07:39:00 Antonio Diego [facility] ANTIBODY SCREEN 2022-11-29 07:39:00 Antonio Diego [facility] SERUM CREATININE 2022-11-29 07:39:00 Sheela Jackson [facility] .GLOMERULAR FILTRATION 2022-11-29 07:39:00 Sheela Jackson [facility] RATE [facility] Results CBC 2022-11-29 07:39:00 Zamzam Judge [facility] FIBRINOGEN ACTIVITY 2022-11-29 07:39:00 Dang Neves [facility] ANION GAP 2022-11-29 07:39:00 Sheela Jackson [facility] DIFFERENTIAL CANCEL 2022-11-29 07:39:00 Zamzam Judge [facility] CLOT EXPIRATION DATE 2022-11-29 07:39:00 Antonio Diego [facility] TMP INTERPRETATION 2022-11-29 07:39:00 Antonio Diego [facility] ANTIBODY SCREEN NEGATIVE MD [facility] TMP CROSSMATCH 2022-11-29 07:39:00 Antonio Diego [facility] INTERPRETATION [facility] POC GLUCOSE SCREEN 2022-11-29 02:55:00 Jennifer Calle [facility] Center POC GLUCOSE SCREEN 2022-11-29 01:22:00 Jennifer Calle [facility] Center POC GLUCOSE SCREEN 2022-11-29 00:08:00 Alva[facility] GENER[facility] LABORATORY ADD ON 2022-11-28 19:47:00 Dang Neves [facility] POC GLUCOSE SCREEN 2022-11-28 19:27:00 [facility] URINE CULTURE 2022-11-28 15:59:00 Dang Neves [facility] POC GLUCOSE SCREEN 2022-11-28 14:39:00 Alva [facility] PROTHROMBIN TIME 2022-11-28 08:11:00 [facility] D DIMER 2022-11-28 08:11:00 [facility] FIBRINOGEN ACTIVITY 2022-11-28 08:11:00 Sheela Jackson [facility] GLUCOSE, RANDOM 2022-11-28 08:11:00 [facility] CALCIUM LEVEL TOTAL 2022-11-28 08:11:00 Sheela Jackson [facility] BLOOD UREA NITROGEN 2022-11-28 08:11:00 Sheela Jackson [facility] SERUM CREATININE 2022-11-28 08:11:00 [facility] SODIUM LEVEL 2022-11-28 08:11:00 [facility] POTASSIUM LEVEL 2022-11-28 08:11:00 [facility] MAGNESIUM LEVEL 2022-11-28 08:11:00 [facility] CHLORIDE LEVEL 2022-11-28 08:11:00 [facility] CARBON DIOXIDE LEVEL 2022-11-28 08:11:00 Sheela Jackson [facility] TOTAL PROTEIN 2022-11-28 08:11:00 Sheela Jackson [facility] ALBUMIN LEVEL 2022-11-28 08:11:00 [facility] PHOSPHORUS LEVEL 2022-11-28 08:11:00 Manuel Sheela [facility] FRACTIONATED BILIRUBIN 2022-11-28 08:11:00 Manuel Sheela [facility] ALKALINE PHOSPHATASE 2022-11-28 08:11:00 Sheela Jackson [facility] ALANINE AMINOTRANSFERASE 2022-11-28 08:11:00 Sheela Jackson [facility] URIC ACID 2022-11-28 08:11:00 [facility] LACTATE DEHYDROGENASE 2022-11-28 08:11:00 Sheela Jackson [facility] ASPARTATE AMINOTRANSFERASE 2022-11-28 08:11:00 Sonia Hong [facility] COMPLETE BLOOD COUNT W/ 2022-11-28 08:11:00 Zamzam Judge [facility] DIFFERENTIAL [facility] SERUM CREATININE 2022-11-28 08:11:00 [facility] .GLOMERULAR FILTRATION 2022-11-28 08:11:00 Sheela Jackson [facility] RATE [facility] Results CBC 2022-11-28 08:11:00 Zamzam Judge [facility] ANION GAP 2022-11-28 08:11:00 [facility] DIFFERENTIAL CANCEL 2022-11-28 08:11:00 Zamzam Judge [facility] APTT 2022-11-28 08:06:00 Dang Neves [facility] PROTHROMBIN TIME 2022-11-28 08:06:00 Dang Neves [facility] POC GLUCOSE SCREEN 2022-11-28 03:49:00 Jennifer Calle [facility] POC GLUCOSE SCREEN 2022-11-28 00:05:00 Jennifer Calle [facility] CYTOLOGY NON-FILTER WASHER AND PRESSER 2022-11-27 20:30:00 Antonio Diego [facility] INTERPRETATION [facility] CELL COUNT W/ DIFF 2022-11-27 20:25:00 Antonio Diego [facility] CEREBROSPINAL FLUID [facility] [place] .CSF DIFF PATH REVIEW 2022-11-27 20:25:00 Antonio Diego [facility] ME 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 2022-11-27 20:00:00 Antonio Diego [facility] SPINAL PUNCTURE [facility] PREPARE PLATELETS 2022-11-27 19:17:00 Dang Neves [facility] POC GLUCOSE SCREEN 2022-11-27 18:29:00 Jennifer Calle [facility] GENERAL LABORATORY ADD ON 2022-11-27 15:37:00 Dang Neves [facility] TEST [facility] POC GLUCOSE SCREEN 2022-11-27 15:09:00 Jennifer Calle [facility] POC GLUCOSE SCREEN 2022-11-27 14:27:00 Jennifer Calle [facility] POSACONAZOLE LEVEL, SERUM 2022-11-27 11:45:00 Jaimie Hicks [facility] GLUCOSE, RANDOM 2022-11-27 07:00:00 Sheela Jackson [facility] CALCIUM LEVEL TOTAL 2022-11-27 07:00:00 Sheela Jackson [facility] BLOOD UREA NITROGEN 2022-11-27 07:00:00 Sheela Jackson [facility] SERUM CREATININE 2022-11-27 07:00:00 [facility] SODIUM LEVEL 2022-11-27 07:00:00 [facility] POTASSIUM LEVEL 2022-11-27 07:00:00 [facility] MAGNESIUM LEVEL 2022-11-27 07:00:00 [facility] CHLORIDE LEVEL 2022-11-27 07:00:00 [facility] CARBON DIOXIDE LEVEL 2022-11-27 07:00:00 Manuel Sheela [facility] TOTAL PROTEIN 2022-11-27 07:00:00 [facility] ALBUMIN LEVEL 2022-11-27 07:00:00 [facility] PHOSPHORUS LEVEL 2022-11-27 07:00:00 [facility] FRACTIONATED BILIRUBIN 2022-11-27 07:00:00 Sheela Jackson [facility] ALKALINE PHOSPHATASE 2022-11-27 07:00:00 Manuel Sheela [facility] ALANINE AMINOTRANSFERASE 2022-11-27 07:00:00 [facility] 2022-11-27 07:00:00 [facility] LACTATE DEHYDROGENASE 2022-11-27 07:00:00 Sheela Jackson [facility] ASPARTATE AMINOTRANSFERASE 2022-11-27 07:00:00 Soina Hong [facility] APTT 2022-11-27 07:00:00 Dang Neves [facility] PROTHROMBIN TIME 2022-11-27 07:00:00 Dang Neves [facility] COMPLETE BLOOD COUNT W/ 2022-11-27 07:00:00 Zamzam Judge [facility] SERUM CREATININE 2022-11-27 07:00:00 Sheela Jackson [facility] .GLOMERULAR FILTRATION 2022-11-27 07:00:00 Sheela Jackson [facility] RATE [facility] Results CBC 2022-11-27 07:00:00 Zamzam Judge [facility] ANION GAP 2022-11-27 07:00:00 Sheela Jackson [facility] DIFFERENTIAL CANCEL 2022-11-27 07:00:00 Zamzam Judge [facility] FIBRINOGEN ACTIVITY 2022-11-27 07:00:00 Dang Neves [facility] POC GLUCOSE SCREEN 2022-11-27 02:58:00 Antonio Diego [facility] POC GLUCOSE SCREEN 2022-11-26 23:43:00 Brandie [facility] POC GLUCOSE SCREEN 2022-11-26 18:41:00 Brandie [facility] TRANSFUSE RED BLOOD CELLS 2022-11-26 16:45:00 Antonio [facility] POC GLUCOSE SCREEN 2022-11-26 14:35:00 Antonio Diego [facility] PREPARE RBC 2022-11-26 09:08:00 Brandie Antonio [place] [facility] PRBC PRODUCT READY FOR 2022-11-26 09:08:00 Antonio Diego [facility] DIRECTOR DECISION SUPPORT [facility] TYPE AND SCREEN 2022-11-26 07:28:00 Antonio Diego [place] [facility] GLUCOSE, RANDOM 2022-11-26 07:28:00 Sheela Jackson [facility] CALCIUM LEVEL TOTAL 2022-11-26 07:28:00 Sheela Jackson [facility] BLOOD UREA NITROGEN 2022-11-26 07:28:00 Manuel Sheela [facility] SERUM CREATININE 2022-11-26 07:28:00 [facility] SODIUM LEVEL 2022-11-26 07:28:00 [facility] POTASSIUM LEVEL 2022-11-26 07:28:00 [facility] MAGNESIUM LEVEL 2022-11-26 07:28:00 [facility] CHLORIDE LEVEL 2022-11-26 07:28:00 [facility] CARBON DIOXIDE LEVEL 2022-11-26 07:28:00 Manuel [facility] TOTAL PROTEIN 2022-11-26 07:28:00 [facility] ALBUMIN LEVEL 2022-11-26 07:28:00 [facility] PHOSPHORUS LEVEL 2022-11-26 07:28:00 [facility] FRACTIONATED BILIRUBIN 2022-11-26 07:28:00 Manuel Sheela [facility] ALKALINE PHOSPHATASE 2022-11-26 07:28:00 Manuel [facility] ALANINE AMINOTRANSFERASE 2022-11-26 07:28:00 Manuel [facility] URIC ACID 2022-11-26 07:28:00 [facility] LACTATE DEHYDROGENASE 2022-11-26 07:28:00 [facility] ASPARTATE AMINOTRANSFERASE 2022-11-26 07:28:00 Sonia Hong [facility] APTT 2022-11-26 07:28:00 Dang Neves [facility] PROTHROMBIN TIME 2022-11-26 07:28:00 Dang Neves [facility] COMPLETE BLOOD COUNT W/ 2022-11-26 07:28:00 Zamzam Judge [facility] ABORH 2022-11-26 07:28:00 Brandie [facility] ANTIBODY SCREEN 2022-11-26 07:28:00 Brandie [facility] SERUM CREATININE 2022-11-26 07:28:00 Manuel Sheela [facility] .GLOMERULAR FILTRATION 2022-11-26 07:28:00 Sheela Jackson [facility] RATE [facility] Results CBC 2022-11-26 07:28:00 Zamzam Judge [facility] ANION GAP 2022-11-26 07:28:00 Manuel Sheela [facility] FIBRINOGEN ACTIVITY 2022-11-26 07:28:00 Dang Neves [facility] DIFFERENTIAL CANCEL 2022-11-26 07:28:00 Zamzam Judge [facility] CLOT EXPIRATION DATE 2022-11-26 07:28:00 Antonio Diego [facility] TMP INTERPRETATION 2022-11-26 07:28:00 DiegoAntonio baird [facility] ANTIBODY SCREEN NEGATIVE MD Estrada [facility] TMP CROSSMATCH 2022-11-26 07:28:00 Antonio Diego [facility] INTERPRETATION [facility] POC GLUCOSE SCREEN 2022-11-26 05:08:00 DiegoAntonio baird [facility] POC GLUCOSE SCREEN 2022-11-26 03:06:00 DiegoAntonio gatica [facility] POC GLUCOSE SCREEN 2022-11-25 23:36:00 Brandie [facility] POC GLUCOSE SCREEN 2022-11-25 18:26:00 [facility]ie [facility] POC GLUCOSE SCREEN 2022-11-25 14:04:00 Brandie [facility] GLUCOSE, RANDOM 2022-11-25 07:58:00 [facility] CALCIUM LEVEL TOTAL 2022-11-25 07:58:00 Manuel Sheela [facility] BLOOD UREA NITROGEN 2022-11-25 07:58:00 Manuel Sheela [facility] SERUM CREATININE 2022-11-25 07:58:00 [facility] SODIUM LEVEL 2022-11-25 07:58:00 [facility] POTASSIUM LEVEL 2022-11-25 07:58:00 [facility] MAGNESIUM LEVEL 2022-11-25 07:58:00 [facility] CHLORIDE LEVEL 2022-11-25 07:58:00 [facility] CARBON DIOXIDE LEVEL 2022-11-25 07:58:00 aMnuel Sheela [facility] TOTAL PROTEIN 2022-11-25 07:58:00 [facility] ALBUMIN LEVEL 2022-11-25 07:58:00 [facility] PHOSPHORUS LEVEL 2022-11-25 07:58:00 [facility] FRACTIONATED BILIRUBIN 2022-11-25 07:58:00 Manuel Sheela [facility] ALKALINE PHOSPHATASE 2022-11-25 07:58:00 Sheela [facility] ALANINE AMINOTRANSFERASE 2022-11-25 07:58:00 [facility] URIC ACID 2022-11-25 07:58:00 Sheela Jackson [facility] LACTATE DEHYDROGENASE 2022-11-25 07:58:00 Sheela Jackson [facility] ASPARTATE AMINOTRANSFERASE 2022-11-25 07:58:00 Sonia Hong [facility] APTT 2022-11-25 07:58:00 Dang Neves [facility] PROTHROMBIN TIME 2022-11-25 07:58:00 Dang Neves [facility] COMPLETE BLOOD COUNT W/ 2022-11-25 07:58:00 Zamzam Judge [facility] DIFFERENTIAL [facility] SERUM CREATININE 2022-11-25 07:58:00 Sheela Jackson [facility] .GLOMERULAR FILTRATION 2022-11-25 07:58:00 Sheela Jackson [facility] Results CBC 2022-11-25 07:58:00 Zamzam Judge [facility] ANION GAP 2022-11-25 07:58:00 Sheela Jackson [facility] DIFFERENTIAL CANCEL 2022-11-25 07:58:00 Zamzam Judge [facility] POC GLUCOSE SCREEN 2022-11-25 03:45:00 [facility]LETS 2022-11-25 03:18:00 Antonio Diego ty [facility] C DIFFICILE DNA ASSAY 2022-11-25 01:32:00 Dang Neves [facility] C DIFFICILE DNA ASSAY PATH 2022-11-25 01:32:00 Dang Neves [facility] REVIEW [facility] POC GLUCOSE SCREEN 2022-11-25 00:13:00 Antonio Diego [facility] BLOODCULTURE 2022-11-24 21:43:00 Sheela Jackson [facility] URINALYSIS MICROSCOPIC 2022-11-24 21:31:00 Antonio Diego [facility] URINE CULTURE 2022-11-24 21:31:00 Antonio Diego [facility] FIBRINOGEN ACTIVITY 2022-11-24 19:05:00 Dang Neves [facility] POTASSIUM LEVEL 2022-11-24 19:05:00 Dang Neves [facility] POC GLUCOSE SCREEN 2022-11-24 18:39:00 Antonio Diego [facility] PREPARE PLATELETS 2022-11-24 17:21:00 Antonio Diego [facility] PLT PRODUCT READY FOR PICK 2022-11-24 17:21:00 Antonio Diego [facility] POC GLUCOSE SCREEN 2022-11-24 15:23:00 Brandie Antonio [facility] GLUCOSE, RANDOM 2022-11-24 09:29:00 Sheela Jackson [facility] CALCIUM LEVEL TOTAL 2022-11-24 09:29:00 Sheela Jackson [facility] BLOOD UREA NITROGEN 2022-11-24 09:29:00 Sheela Jackson [facility] SERUM CREATININE 2022-11-24 09:29:00 [facility] SODIUM LEVEL 2022-11-24 09:29:00 [facility] POTASSIUM LEVEL 2022-11-24 09:29:00 [facility] MAGNESIUM LEVEL 2022-11-24 09:29:00 [facility] CHLORIDE LEVEL 2022-11-24 09:29:00 [facility] CARBON DIOXIDE LEVEL 2022-11-24 09:29:00 [facility] TOTAL PROTEIN 2022-11-24 09:29:00 [facility] ALBUMIN LEVEL 2022-11-24 09:29:00 [facility] PHOSPHORUS LEVEL 2022-11-24 09:29:00 [facility] FRACTIONATED BILIRUBIN 2022-11-24 09:29:00 Manuel [facility] ALKALINE PHOSPHATASE 2022-11-24 09:29:00 Manuel [facility] ALANINE AMINOTRANSFERASE 2022-11-24 09:29:00 Sheela Jackson [facility] URIC ACID 2022-11-24 09:29:00 [facility] LACTATE DEHYDROGENASE 2022-11-24 09:29:00 Manuel Sheela [facility] PROTHROMBIN TIME 2022-11-24 09:29:00 [facility] APTT 2022-11-24 09:29:00 [facility] D DIMER 2022-11-24 09:29:00 [facility] FIBRINOGEN ACTIVITY 2022-11-24 09:29:00 Manuel Sheela [facility] ASPARTATE AMINOTRANSFERASE 2022-11-24 09:29:00 Sonia Hong [facility] COMPLETE BLOOD COUNT W/ 2022-11-24 09:29:00 Zamzam Judge [facility] DIFFERENTIAL [facility] SERUM CREATININE 2022-11-24 09:29:00 Sheela Jackson [facility] .GLOMERULAR FILTRATION 2022-11-24 09:29:00 Sheela Jackson [facility] RATE [facility] Results CBC 2022-11-24 09:29:00 Zamzam Judge [facility] ANION GAP 2022-11-24 09:29:00 Sheela Jackson [facility] DIFFERENTIAL CANCEL 2022-11-24 09:29:00 Zamzam Judge [facility] APTT 2022-11-24 09:19:00 Dang Neves [facility] PROTHROMBIN TIME 2022-11-24 09:19:00 Dang Neves [facility] POC GLUCOSE SCREEN 2022-11-24 02:11:00 Antonio Diego [facility] POC GLUCOSE SCREEN 2022-11-24 00:18:00 Brandie Antonio [facility] EKG, 12-LEAD (PORTABLE) 2022-11-24 00:00:00 Dang Neves [facility] FIBRINOGEN ACTIVITY 2022-11-23 20:32:00 Dang Neves [facility] POC GLUCOSE SCREEN 2022-11-23 13:49:00 Antonio Diego [facility] TRANSFUSE RED BLOOD CELLS 2022-11-23 12:30:00 Antonio [facility] RBC 2022-11-23 09:17:00 Antonio Diego [facility] PRBC PRODUCT READY FOR 2022-11-23 09:17:00 Antonio Diego [facility] DIRECTOR DECISION SUPPORT [facility] TYPE AND SCREEN 2022-11-23 08:06:00 Antonio Diego o [facility] GLUCOSE, RANDOM 2022-11-23 08:06:00 [facility] CALCIUM LEVEL TOTAL 2022-11-23 08:06:00 Manuel Sheela [facility] BLOOD UREA NITROGEN 2022-11-23 08:06:00 Manuel [facility] SERUM CREATININE 2022-11-23 08:06:00 [facility] SODIUM LEVEL 2022-11-23 08:06:00 [facility] POTASSIUM LEVEL 2022-11-23 08:06:00 [facility] MAGNESIUM LEVEL 2022-11-23 08:06:00 [facility] CHLORIDE LEVEL 2022-11-23 08:06:00 [facility] CARBON DIOXIDE LEVEL 2022-11-23 08:06:00 Manuel Sheela [facility] TOTAL PROTEIN 2022-11-23 08:06:00 [facility] ALBUMIN LEVEL 2022-11-23 08:06:00 [facility] PHOSPHORUS LEVEL 2022-11-23 08:06:00 [facility] FRACTIONATED BILIRUBIN 2022-11-23 08:06:00 Sheela Jackson [facility] ALKALINE PHOSPHATASE 2022-11-23 08:06:00 Manuel [facility] ALANINE AMINOTRANSFERASE 2022-11-23 08:06:00 [facility] 2022-11-23 08:06:00 [facility] LACTATE DEHYDROGENASE 2022-11-23 08:06:00 Sheela Jackson [facility] ASPARTATE AMINOTRANSFERASE 2022-11-23 08:06:00 [facility] AP[facility] 2022-11-23 08:06:00 Dang Neves [facility] PROTHROMBIN TIME 2022-11-23 08:06:00 Dang Neves [facility] COMPLETE BLOOD COUNT W/ 2022-11-23 08:06:00 Zamzam Judge [facility] DIFFERENTIAL [facility] ABORH 2022-11-23 08:06:00 Brandie [facility] ANTIBODY SCREEN 2022-11-23 08:06:00 Brandie [facility] SERUM CREATININE 2022-11-23 08:06:00 Sheela Jackson [facility] .GLOMERULAR FILTRATION 2022-11-23 08:06:00 Sheela Jackson [facility] RATE [facility] Results CBC 2022-11-23 08:06:00 Zamzam Judge [facility] MANUAL DIFFERENTIAL 2022-11-23 08:06:00 Zamzam Judge [facility] ANION GAP 2022-11-23 08:06:00 Sheela Jackson [facility] CLOT EXPIRATION DATE 2022-11-23 08:06:00 Antonio Diego [facility] TMP INTERPRETATION 2022-11-23 08:06:00 Brandie Antonio [facility] ANTIBODY SCREEN NEGATIVE MD Estrada [facility] FIBRINOGEN ACTIVITY 2022-11-23 02:20:00 Dang Neves [facility] POTASSIUM LEVEL 2022-11-23 02:20:00 Myah Dillon [facility] COVID-19 (SARS-COV-2) 2022-11-23 02:20:00 Antonio Diego [facility] PCR-ASYMPTOMATIC [facility] OSCILLATORY PEP 2022-11-23 02:00:11 Brandie Antonio [facility] POC GLUCOSE SCREEN 2022-11-23 00:14:00 Brandie [facility] TRANSFUSE PLATELETS 2022-11-22 23:05:00 Myah Dillon [facility] POC GLUCOSE SCREEN 2022-11-22 21:53:[address] [facility] [address] SINUS WO CONTRAST 2022-11-22 21:07:47 Myah Dillon [facility] POC CRITICAL 2022-11-22 19:07:00 Brandie [facility] POC GLUCOSE SCREEN 2022-11-22 19:07:00 Brandie [facility] PREPARE PLATELETS 2022-11-22 14:51:00 Myah Dillon [facility] PLT PRODUCT READY FOR PICK 2022-11-22 14:51:00 Myah Dillon [facility] OSCILLATORY PEP 2022-11-22 14:00:12 Brandie [facility] GLUCOSE, RANDOM 2022-11-22 10:59:00 [facility]OTAL 2022-11-22 10:59:00 Sheela Jackson [facility] BLOOD UREA NITROGEN 2022-11-22 10:59:00 Manuel Sheela [facility] SERUM CREATININE 2022-11-22 10:59:00 [facility] SODI[facility]EL 2022-11-22 10:59:00 [facility] POTASSIUM LEVEL 2022-11-22 10:59:00 Sheela Jackson [facility] MAGNESIUM LEVEL 2022-11-22 10:59:00 [facility] CHLORIDE LEVEL 2022-11-22 10:59:00 Manuel Sheela [facility] CARBON DIOXIDE LEVEL 2022-11-22 10:59:00 Sheela Jackson [facility] TOTAL PROTEIN 2022-11-22 10:59:00 Manuel Sheela [facility] ALBUMIN LEVEL 2022-11-22 10:59:00 [facility] PHOSPHORUS LEVEL 2022-11-22 10:59:00 Manuel Sheela [facility] FRACTIONATED BILIRUBIN 2022-11-22 10:59:00 Sheela Jackson [facility] ALKALINE PHOSPHATASE 2022-11-22 10:59:00 Sheela Jackson [facility] ALANINE AMINOTRANSFERASE 2022-11-22 10:59:00 [facility] URIC ACID 2022-11-22 10:59:00 [facility] LACTATE DEHYDROGENASE 2022-11-22 10:59:00 Sheela Jackson [facility] ASPARTATE AMINOTRANSFERASE 2022-11-22 10:59:00 Sonia Hong [facility] APTT 2022-11-22 10:59:00 Dang Neves [facility] PROTHROMBIN TIME 2022-11-22 10:59:00 Dang Neves [facility] COMPLETE BLOOD COUNT W/ 2022-11-22 10:59:00 Zamzam Judge [facility] DIFFERENTIAL [facility] SERUM CREATININE 2022-11-22 10:59:00 [facility] .GLOM[facility] FILTRATION 2022-11-22 10:59:00 Sheela Jackson [facility] RATE [facility] Results CBC 2022-11-22 10:59:00 Zamzam Judge [facility] ANION GAP 2022-11-22 10:59:00 Sheela Jackson [facility] DIFFERENTIAL CANCEL 2022-11-22 10:59:00 Zamzam Judge [facility] LOWER RESPIRATORY CULTURE 2022-11-22 05:20:00 Kierra Comer [facility] W/ GRAM STAIN [facility] POC GLUCOSE SCREEN 2022-11-22 05:09:00 Brandie Antonio [facility] POC GLUCOSE SCREEN 2022-11-22 02:31:00 Brandie [facility] POC GLUCOSE SCREEN 2022-11-21 23:53:00 Brandie [facility] FIBRINOGEN ACTIVITY 2022-11-21 21:54:00 Dang Neves [facility] HSV/VZV DNA DETECTION 2022-11-21 20:40:00 Mark Hicks [facility] WOUND CULTURE W/ GRAM 2022-11-21 20:40:00 Mark Hicks [facility] STAIN [facility] POC GLUCOSE SCREEN 2022-11-21 19:16:00 Brandie Antonio [facility] POC GLUCOSE SCREEN 2022-11-21 15:20:00 Brandie Antonio [facility] URINALYSIS MICROSCOPIC 2022-11-21 09:14:00 [facility]io [facility] URINE CULTURE 2022-11-21 09:14:00 [facility]io [facility] OSCILLATORY PEP 2022-11-21 08:00:06 Bradnie Antonio [place] [facility] XR CHEST 1 VW PORTABLE 2022-11-21 07:41:00 Jorge Mercado [facility] BLOODCULTURE 2022-11-21 07:22:00 [facility] GLUCOSE, RANDOM 2022-11-21 07:05:00 [facility] CALCIUM LEVEL TOTAL 2022-11-21 07:05:00 Sheela Jackson [facility] BLOOD UREA NITROGEN 2022-11-21 07:05:00 Sheela Jackson [facility] SERUM CREATININE 2022-11-21 07:05:00 [facility] SODIUM LEVEL 2022-11-21 07:05:00 [facility] POTASSIUM LEVEL 2022-11-21 07:05:00 [facility] MAGNESIUM LEVEL 2022-11-21 07:05:00 [facility] CHLORIDE LEVEL 2022-11-21 07:05:00 [facility] CARBON DIOXIDE LEVEL 2022-11-21 07:05:00 Sheela Jackson [facility] TOTAL PROTEIN 2022-11-21 07:05:00 [facility] ALBUMIN LEVEL 2022-11-21 07:05:00 [facility] PHOSPHORUS LEVEL 2022-11-21 07:05:00 [facility] FRACTIONATED BILIRUBIN 2022-11-21 07:05:00 Manuel Sheela [facility] ALKALINE PHOSPHATASE 2022-11-21 07:05:00 [facility] ALANINE AMINOTRANSFERASE 2022-11-21 07:05:00 [facility]ID 2022-11-21 07:05:00 Sheela Jackson [facility] LACTATE DEHYDROGENASE 2022-11-21 07:05:00 [facility]OT[facility] 2022-11-21 07:05:00 Sheela Jackson [facility] APTT 2022-11-21 07:05:00 Manuel Sheela [facility] D DIMER 2022-11-21 07:05:00 [facility] FIBRINOGEN ACTIVITY 2022-11-21 07:05:00 Sheela Jackson [facility] ASPARTATE AMINOTRANSFERASE 2022-11-21 07:05:00 Sonia Hong [facility] COMPLETE BLOOD COUNT W/ 2022-11-21 07:05:00 Zamzam Judge [facility] DIFFERENTIAL [facility] SERUM CREATININE 2022-11-21 07:05:00 Manuel Sheela [facility] .GLOMERULAR FILTRATION 2022-11-21 07:05:00 Sheela Jackson [facility] RATE [facility] Results CBC 2022-11-21 07:05:00 Zamzam Judge [facility] ANION GAP 2022-11-21 07:05:00 Sheela Jackson [facility] DIFFERENTIAL CANCEL 2022-11-21 07:05:00 Zamzam Judge [facility] BLOODCULTURE 2022-11-21 07:05:00 Jorge Mercado [facility] APTT 2022-11-21 06:58:00 Dang Neves [facility] PROTHROMBIN TIME 2022-11-21 06:58:00 Dang Neves [facility] POC GLUCOSE SCREEN 2022-11-21 03:33:00 Antonio Diego [facility] VRE CULTURE 2022-11-21 03:27:00 Sheela Jackson [facility] POC GLUCOSE SCREEN 2022-11-21 00:02:00 Antonio Diego [facility] POC GLUCOSE SCREEN 2022-11-20 18:47:00 Antonio Diego [facility] TRANSFUSE PLATELETS 2022-11-20 17:10:00 Antonio Diego [facility] POC GLUCOSE SCREEN 2022-11-20 15:23:00 Antonio Diego [facility] POC GLUCOSE SCREEN 2022-11-20 14:27:00 Antonio Diego [facility] PREPARE PLATELETS 2022-11-20 09:53:00 [facility] PRODUCT READY FOR PICK 2022-11-20 09:53:00 Antonio Diego [facility] ANTIBODY SCREEN 2022-11-20 09:00:00 Brandie Antonio [facility] SERUM CREATININE 2022-11-20 09:00:00 Sheela Jackson [facility] .GLOMERULAR FILTRATION 2022-11-20 09:00:00 Sheela Jackson [facility] RATE [facility] ANION GAP 2022-11-20 09:00:00 Sheela Jackson [facility] DIFFERENTIAL CANCEL 2022-11-20 09:00:00 Dang Neves [facility] TMP INTERPRETATION 2022-11-20 09:00:00 Antonio Diego [facility] ANTIBODY SCREEN NEGATIVE MD Estrada carlito [facility] CLOT EXPIRATION DATE 2022-11-20 09:00:00 Antonio Diego [facility] TMP CROSSMATCH 2022-11-20 09:00:00 Brandie Antonio [place] [facility] [place] INTERPRETATION [facility] BLOODCULTURE 2022-11-20 09:00:00 Dang Neves [facility] COMPLETE BLOOD COUNT W/ 2022-11-20 09:00:00 Dang Neves [facility] TYPE AND SCREEN 2022-11-20 09:00:00 Brandie [facility] GLUCOSE, RANDOM 2022-11-20 09:00:00 [facility] CALCIUM LEVEL TOTAL 2022-11-20 09:00:00 Manuel Sheela [facility] BLOOD UREA NITROGEN 2022-11-20 09:00:00 Sheela Jackson [facility] SERUM CREATININE 2022-11-20 09:00:00 [facility] SODIUM LEVEL 2022-11-20 09:00:00 [facility] POTASSIUM LEVEL 2022-11-20 09:00:00 [facility] MAGNESIUM LEVEL 2022-11-20 09:00:00 [facility] CHLORIDE LEVEL 2022-11-20 09:00:00 [facility] CARBON DIOXIDE LEVEL 2022-11-20 09:00:00 Sheela Jackson [facility] TOTAL PROTEIN 2022-11-20 09:00:00 [facility] ALBUMIN LEVEL 2022-11-20 09:00:00 [facility] PHOSPHORUS LEVEL 2022-11-20 09:00:00 [facility] FRACTIONATED BILIRUBIN 2022-11-20 09:00:00 [place], Sheela [facility] ALKALINE PHOSPHATASE 2022-11-20 09:00:00 Sheela [facility] ALANINE AMINOTRANSFERASE 2022-11-20 09:00:00 She[facility] URIC ACID 2022-11-20 09:00:00 Sheela Jackson [facility] LACTATE DEHYDROGENASE 2022-11-20 09:00:00 She[facility] ASPARTATE AMINOTRANSFERASE 2022-11-20 09:00:00 Sonia Hong [facility] APTT 2022-11-20 09:00:00 Dang Neves [facility] PROTHROMBIN TIME 2022-11-20 09:00:00 Dang Neves [facility] Results CBC 2022-11-20 09:00:00 Dang Neves [facility] ABORH 2022-11-20 09:00:00 Brandie Antonio [facility] POC GLUCOSE SCREEN 2022-11-20 05:03:00 Antonio Diego [facility] TRANSFUSE RED BLOOD CELLS 2022-11-20 03:35:[address] [facility] OSCILLATORY PEP 2022-11-20 02:00:06 Antonio Diego [facility] POC GLUCOSE SCREEN 2022-11-20 01:43:00 Antonio Diego [facility] POC GLUCOSE SCREEN 2022-11-20 00:33:00 Antonio Diego [facility] PREPARE RBC 2022-11-19 22:22:00 Antonio Diego [facility] PRBC PRODUCT READY FOR 2022-11-19 22:22:00 Antonio Diego [facility] DIRECTOR DECISION SUPPORT [facility] TRANSFUSE PLATELETS 2022-11-19 21:35:00 Antonio Diego [facility] COMPLETE BLOOD COUNT W/ 2022-11-19 21:19:00 Dang Neves Uni vers[facility] DIFFERENTIAL [facility] FIBRINOGEN ACTIVITY 2022-11-19 21:19:00 Dang Neves [facility] Results CBC 2022-11-19 21:19:00 Dang Neves [facility] MANUAL DIFFERENTIAL 2022-11-19 21:19:00 Dang Neves [facility] POC GLUCOSE SCREEN 2022-11-19 21:11:00 Antonio Diego [facility] [address] CHEST WO CONTRAST 2022-11-19 20:42:34 Zamzam Judge [facility] CT HEAD WO CONTRAST 2022-11-19 20:42:07 Zamzam Judge [facility] OSCILLATORY PEP 2022-11-19 20:00:45 Brandie [facility] POC GLUCOSE SCREEN 2022-11-19 19:09:00 Antonio Diego [facility] OSCILLATORY PEP 2022-11-19 14:00:05 Brandie Antonio [facility] POC GLUCOSE SCREEN 2022-11-19 13:57:00 Antonio Diego [facility] TRANSFUSE RED BLOOD CELLS 2022-11-19 10:50:00 Antonio [facility] OSCILLATORY PEP 2022-11-19 09:59:15 Brandie Antonio [facility] PREPARE RBC 2022-11-19 09:05:00 Brandie Antonio [facility] PREPARE PLATELETS 2022-11-19 09:05:00 [facility]ie [facility] PRBC PRODUCT READY FOR 2022-11-19 09:05:00 Anotnio Diego [facility] PLT PRODUCT READY FOR PICK 2022-11-19 09:05:00 [facility]-11-19 08:05:00 Dang Neves [facility] COMPLETE BLOOD COUNT W/ 2022-11-19 08:05:00 [facility] GLUCOSE, RANDOM 2022-11-19 08:05:00 [facility]CI[facility] TOTAL 2022-11-19 08:05:00 Sheela Jackson [facility] BLOOD UREA NITROGEN 2022-11-19 08:05:00 Sheela Jackson [facility] SERUM CREATININE 2022-11-19 08:05:00 [facility] SODIUM LEVEL 2022-11-19 08:05:00 [facility] POTASSIUM LEVEL 2022-11-19 08:05:00 [facility] MAGNESIUM LEVEL 2022-11-19 08:05:00 [facility] CHLORIDE LEVEL 2022-11-19 08:05:00 [facility] CARBON DIOXIDE LEVEL 2022-11-19 08:05:00 Sheela Jackson [facility] TOTAL PROTEIN 2022-11-19 08:05:00 [facility] ALBUMIN LEVEL 2022-11-19 08:05:00 [facility] PHOSPHORUS LEVEL 2022-11-19 08:05:00 [facility] FRACTIONATED BILIRUBIN 2022-11-19 08:05:00 Sheela Jackson [facility] ALKALINE PHOSPHATASE 2022-11-19 08:05:00 Sheela Jackson [facility] ALANINE AMINOTRANSFERASE 2022-11-19 08:05:00 Sheela [facility] URIC ACID 2022-11-19 08:05:00 Sheela Jackson [facility] LACTATE DEHYDROGENASE 2022-11-19 08:05:00 Sheela Jackson [facility] ASPARTATE AMINOTRANSFERASE 2022-11-19 08:05:00 Sonia Hong [facility] APTT 2022-11-19 08:05:00 Dang Neves [facility] PROTHROMBIN TIME 2022-11-19 08:05:00 Dang Neves [facility] Results CBC 2022-11-19 08:05:00 Dang Neves [facility] MANUAL DIFFERENTIAL 2022-11-19 08:05:00 Dang Neves [facility] SERUM CREATININE 2022-11-19 08:05:00 Sheela Jackson [facility] .GLOMERULAR FILTRATION 2022-11-19 08:05:00 Sheela Jackson [facility] ANION GAP 2022-11-19 08:05:00 Sheela Jackson [facility] POC GLUCOSE SCREEN 2022-11-19 04:19:00 Brandie [facility] POC GLUCOSE SCREEN 2022-11-19 00:12:00 Brnadie [facility] POC GLUCOSE SCREEN 2022-11-18 23:13:00 Brandie [facility] TRANSFUSE PLATELETS 2022-11-18 20:55:00 Antonio Diego [facility] COMPLETE BLOOD COUNT W/ 2022-11-18 18:57:00 Dang Neves [facility] FIBRINOGEN ACTIVITY 2022-11-18 18:57:00 Dang Neves [facility] Results CBC 2022-11-18 18:57:00 Dang Neves [facility] MANUAL DIFFERENTIAL 2022-11-18 18:57:00 Dang Neves [facility] POC GLUCOSE SCREEN 2022-11-18 18:16:00 Brandie [facility] POC GLUCOSE SCREEN 2022-11-18 14:29:00 Antonio Diego [facility] PREPARE PLATELETS 2022-11-18 13:46:00 Antonio Diego [facility] PLT PRODUCT READY FOR PICK 2022-11-18 13:46:00 Antonio [facility] TRANSF[facility] RED BLOOD CELLS 2022-11-18 11:05:00 Antonio [facility] 2022-11-18 08:38:00 Brandie Antonio [place] [facility] PRBC PRODUCT READY FOR 2022-11-18 08:38:00 Antonio Diego [facility] BLOODCULTURE 2022-11-18 06:55:00 Dang Neves [facility] GLUCOSE, RANDOM 2022-11-18 06:55:00 Manuel Sheela [facility] CALCIUM LEVEL TOTAL 2022-11-18 06:55:00 Sheela Jackson [facility] BLOOD UREA NITROGEN 2022-11-18 06:55:00 Sheela Jackson [facility] SERUM CREATININE 2022-11-18 06:55:00 [facility] SODIUM LEVEL 2022-11-18 06:55:00 [facility] POTASSIUM LEVEL 2022-11-18 06:55:00 [facility] MAGNESIUM LEVEL 2022-11-18 06:55:00 [facility] CHLORIDE LEVEL 2022-11-18 06:55:00 [facility] CARBON DIOXIDE LEVEL 2022-11-18 06:55:00 Manuel [facility] TOTAL PROTEIN 2022-11-18 06:55:00 [facility] ALBUMIN LEVEL 2022-11-18 06:55:00 [facility] PHOSPHORUS LEVEL 2022-11-18 06:55:00 [facility] FRACTIONATED BILIRUBIN 2022-11-18 06:55:00 Manuel [facility] ALKALINE PHOSPHATASE 2022-11-18 06:55:00 Manuel [facility] ALANINE AMINOTRANSFERASE 2022-11-18 06:55:00 Sheela [facility] URIC ACID 2022-11-18 06:55:00 [facility] LACTATE DEHYDROGENASE 2022-11-18 06:55:00 Manuel Sheela [facility] PROTHROMBIN TIME 2022-11-18 06:55:00 [facility] [facility] APTT 2022-11-18 06:55:00 [facility] D DIMER 2022-11-18 06:55:00 [facility] FIBRINOGEN ACTIVITY 2022-11-18 06:55:00 Sheela Jackson [facility] ASPARTATE AMINOTRANSFERASE 2022-11-18 06:55:00 Sonia Hong [facility] COMPLETE BLOOD COUNT W/ 2022-11-18 06:55:00 [facility] Results CBC 2022-11-18 06:55:00 Dang Neves [facility] MANUAL DIFFERENTIAL 2022-11-18 06:55:00 Dang Neves [facility] SERUM CREATININE 2022-11-18 06:55:00 Sheela Jackson [facility] .GLOMERULAR FILTRATION 2022-11-18 06:55:00 Sheela Jackson [facility] RATE [facility] ANION GAP 2022-11-18 06:55:00 Sheela Jackson [facility] POC GLUCOSE SCREEN 2022-11-18 03:09:00 Antonio Diego [facility] POC GLUCOSE SCREEN 2022-11-17 22:55:00 Brandie Antonio [facility] CMV QUANT PCR 2022-11-17 21:09:00 Dang Neves [facility] HP MARIBEL-POP VIRUS 2022-11-17 21:09:00 [facility] PCR ANALYSIS And [facility] Cancer COLLECTION, BLOOD Center PLATELET COUNT 2022-11-17 21:09:00 Dang Neves [facility] HP MARIBEL-POP VIRUS 2022-11-17 21:09:00 [facility] ANALYSIS And [facility] INTERPRETATION AND REPORT Center POC GLUCOSE SCREEN 2022-11-17 17:57:00 Brandie Antonio [facility] APTT 2022-11-17 17:49:00 Dang Neves [facility] PROTHROMBIN TIME 2022-11-17 17:49:00 Dang Neves [facility] FIBRINOGEN ACTIVITY 2022-11-17 17:49:00 Dang Neves [facility] TRANSFUSE PLATELETS 2022-11-17 15:00:00 [facility] POC GLUCOSE SCREEN 2022-11-17 14:31:00 Antonio Diego [facility] PREPARE PLATELETS 2022-11-17 11:49:00 Antonio Diego [facility] PLT PRODUCT READY FOR PICK 2022-11-17 11:49:00 Antonio Diego [facility] TYPE AND SCREEN 2022-11-17 08:22:00 Brandie Antonio [place] [facility] COMPLETE BLOOD COUNT W/ 2022-11-17 08:22:00 Sheela Jackson [facility] DIFFERENTIAL [facility] GLUCOSE, RANDOM 2022-11-17 08:22:00 [facility] CALCIUM LEVEL TOTAL 2022-11-17 08:22:00 Sheela Jackson [facility] BLOOD UREA NITROGEN 2022-11-17 08:22:00 Sheela Jackson [facility] SERUM CREATININE 2022-11-17 08:22:00 [facility] SODIUM LEVEL 2022-11-17 08:22:00 [facility] POTASSIUM LEVEL 2022-11-17 08:22:00 [facility] MAGNESIUM LEVEL 2022-11-17 08:22:00 [facility] CHLORIDE LEVEL 2022-11-17 08:22:00 [facility] CARBON DIOXIDE LEVEL 2022-11-17 08:22:00 Sheela Jackson [facility] TOTAL PROTEIN 2022-11-17 08:22:00 [facility] ALBUMIN LEVEL 2022-11-17 08:22:00 [facility] PHOSPHORUS LEVEL 2022-11-17 08:22:00 [facility] FRACTIONATED BILIRUBIN 2022-11-17 08:22:00 Manuel Sheela [facility] ALKALINE PHOSPHATASE 2022-11-17 08:22:00 Manuel Sheela [facility] ALANINE AMINOTRANSFERASE 2022-11-17 08:22:00 [facility]IC ACID 2022-11-17 08:22:00 [facility] LACTATE DEHYDROGENASE 2022-11-17 08:22:00 Sheela Jackson [facility] HEPATITIS B SURFACE 2022-11-17 08:22:00 Zamzam Judge [facility] ANTIBODY, SERUM [facility] HBV DNA QUANT 2022-11-17 08:22:00 Zamzam Judge [facility] ASPARTATE AMINOTRANSFERASE 2022-11-17 08:22:00 Sonia Hong [facility] ABORH 2022-11-17 08:22:00 Brandie [facility] ANTIBODY SCREEN 2022-11-17 08:22:00 Brandie [facility] Results CBC 2022-11-17 08:22:00 [facility] MANUAL DIFFERENTIAL 2022-11-17 08:22:00 Manuel Sheela [facility] SERUM CREATININE 2022-11-17 08:22:00 [facility] 2022-11-17 08:22:00 Sheela Jackson [facility] RATE [facility] ANION GAP 2022-11-17 08:22:00 Sheela Jackson [facility] CLOT EXPIRATION DATE 2022-11-17 08:22:00 Antonio Diego [facility] TMP INTERPRETATION 2022-11-17 08:22:00 Antonio Diego [facility] ANTIBODY SCREEN NEGATIVE MD Estrada [facility] TMP CROSSMATCH 2022-11-17 08:22:00 Antonio Diego [facility] INTERPRETATION [facility] POC GLUCOSE SCREEN 2022-11-17 04:57:00 Brandie [facility] POC GLUCOSE SCREEN 2022-11-17 04:22:00 Brandie [facility] POC GLUCOSE SCREEN 2022-11-16 23:46:00 Antonio Diego [facility] BLOODCULTURE 2022-11-16 20:05:00 Sheela Jackson [facility] POC GLUCOSE SCREEN 2022-11-16 19:17:00 Brandie [facility] POC GLUCOSE SCREEN 2022-11-16 14:30:00 Brandie [facility] CRYPTOCOCCAL ANTIGEN, 2022-11-16 08:24:00 Nadya Ortiz [facility] SERUM [facility] CRYPTOCOCCAL ANTIGEN, 2022-11-16 08:24:00 Nadya Ortiz [facility] SERUM PATH REVIEW [facility] COMPLETE BLOOD COUNT W/ 2022-11-16 08:24:00 Sheela Jackson [facility] DIFFERENTIAL [facility] GLUCOSE, RANDOM 2022-11-16 08:24:00 Sheela Jackson [facility] CALCIUM LEVEL TOTAL 2022-11-16 08:24:00 Sheela Jackson [facility] BLOOD UREA NITROGEN 2022-11-16 08:24:00 Manuel Sheela [facility] SERUM CREATININE 2022-11-16 08:24:00 [facility] SODIUM LEVEL 2022-11-16 08:24:00 [facility] POTASSIUM LEVEL 2022-11-16 08:24:00 [facility] MAGNESIUM LEVEL 2022-11-16 08:24:00 [facility] CHLORIDE LEVEL 2022-11-16 08:24:00 [facility] CARBON DIOXIDE LEVEL 2022-11-16 08:24:00 Sheela Jackson [facility] TOTAL PROTEIN 2022-11-16 08:24:00 [facility] ALBUMIN LEVEL 2022-11-16 08:24:00 [facility] PHOSPHORUS LEVEL 2022-11-16 08:24:00 [facility] FRACTIONATED BILIRUBIN 2022-11-16 08:24:00 Sheela Jackson [facility] ALKALINE PHOSPHATASE 2022-11-16 08:24:00 [facility] ALANINE AMINOTRANSFERASE 2022-11-16 08:24:00 [facility] URIC ACID 2022-11-16 08:24:00 [facility] LACTATE DEHYDROGENASE 2022-11-16 08:24:00 Sheela Jackson [facility] HEPATITIS B SURFACE 2022-11-16 08:24:00 Zamzam Judge [facility] ANTIBODY, SERUM [facility] HBV DNA QUANT 2022-11-16 08:24:00 Zamzam Judge [facility] Results CBC 2022-11-16 08:24:00 Sheela Jackson [facility] MANUAL DIFFERENTIAL 2022-11-16 08:24:00 Sheela Jackson [facility] SERUM CREATININE 2022-11-16 08:24:00 Manuel Sheela [facility] .GLOMERULAR FILTRATION 2022-11-16 08:24:00 Sheela Jackson [facility] RATE [facility] ANION GAP 2022-11-16 08:24:00 Manuel Sheela [facility] POC GLUCOSE SCREEN 2022-11-16 04:18:00 Brandie [facility] POC GLUCOSE SCREEN 2022-11-16 01:29:00 Brandie [facility] POC GLUCOSE SCREEN 2022-11-15 19:40:00 Brandie [facility] URINE CULTURE 2022-11-15 15:43:00 Alexandra Kinsey [facility] COVID-19 (SARS-COV-2) 2022-11-15 15:43:00 Antonio Diego [facility] PCR-ASYMPTOMATIC [facility] POC GLUCOSE SCREEN 2022-11-15 14:21:00 Antonio Diego [facility] BLOODCULTURE 2022-11-15 13:32:00 Alexandra Kinsey [facility] BLOODCULTURE 2022-11-15 11:15:00 Alexandra Kinsey [facility] COMPLETE BLOOD COUNT W/ 2022-11-15 08:34:00 Sheela Jackson [facility] GLUCOSE, RANDOM 2022-11-15 08:34:00 [place] CALCIUM LEVEL TOTAL 2022-11-15 08:34:00 Sheela Jackson [facility] BLOOD UREA NITROGEN 2022-11-15 08:34:00 Manuel Sheela [facility] SERUM CREATININE 2022-11-15 08:34:00 [facility] SODIUM LEVEL 2022-11-15 08:34:00 [facility] POTASSIUM LEVEL 2022-11-15 08:34:00 [facility] MAGNESIUM LEVEL 2022-11-15 08:34:00 [facility] CHLORIDE LEVEL 2022-11-15 08:34:00 [facility] CARBON DIOXIDE LEVEL 2022-11-15 08:34:00 Sheela Jackson [facility] TOTAL PROTEIN 2022-11-15 08:34:00 [facility] ALBUMIN LEVEL 2022-11-15 08:34:00 [facility] PHOSPHORUS LEVEL 2022-11-15 08:34:00 [facility] FRACTIONATED BILIRUBIN 2022-11-15 08:34:00 Sheela Jackson [facility] ALKALINE PHOSPHATASE 2022-11-15 08:34:00 Manuel Sheela [facility] ALANINE AMINOTRANSFERASE 2022-11-15 08:34:00 She[facility] URIC ACID 2022-11-15 08:34:00 [facility] LACTATE DEHYDROGENASE 2022-11-15 08:34:00 Sheela Jackson [facility] PROTHROMBIN TIME 2022-11-15 08:34:00 Sheela Jackson [facility] APTT 2022-11-15 08:34:00 [facility] D DIMER 2022-11-15 08:34:00 Sheela Jackson [facility] FIBRINOGEN ACTIVITY 2022-11-15 08:34:00 Sheela Jackson [facility] HEPATITIS B SURFACE 2022-11-15 08:34:00 Zamzam Judge [facility] ANTIBODY, SERUM [facility] HBV DNA QUANT 2022-11-15 08:34:00 Nu [facility] Results CBC 2022-11-15 08:34:00 [facility] MANUAL DIFFERENTIAL 2022-11-15 08:34:00 Sheela Jackson [facility] SERUM CREATININE 2022-11-15 08:34:00 [facility] .GLOMERULAR FILTRATION 2022-11-15 08:34:00 Sheela Jackson [facility] RATE [facility] ANION GAP 2022-11-15 08:34:00 [facility]SE SCREEN 2022-11-15 05:03:00 Brandie Antonio [facility] POC GLUCOSE SCREEN 2022-11-15 02:02:00 Antonio Diego [facility] POC GLUCOSE SCREEN 2022-11-14 20:24:00 Brandie [facility] CELL COUNT W/ DIFF BODY 2022-11-14 19:11:00 Rigoberto Phillip [facility] FLUID [facility] LOWER RESPIRATORY CULTURE 2022-11-14 19:11:00 Rigoberto Phillip [facility] W/ GRAM STAIN [facility] LEGIONELLA CULTURE 2022-11-14 19:11:00 Rigoberto Phillip [facility] Center FUNGUS CULTURE W/ SMEAR 2022-11-14 19:11:00 Rigoberto Phillip [facility] CULT[facility] W/ SMEAR 2022-11-14 19:11:00 Rigoberto Phillip [facility] RESPIRATORY VIRAL PANEL, 2022-11-14 19:11:00 Rigoberto Phillip [facility] [place] S[facility] OUT [facility] ASPERGILLUS ANTIGEN ASSAY 2022-11-14 19:11:00 Rigoberto [facility] PNEUMOCYSTIS JIROVECI 2022-11-14 19:11:00 Rigoberto Phillip [facility] QUANT, BAL [facility] CMV QUANTITATIVE, BAL 2022-11-14 19:11:00 Rigoberto Phillip [facility] CELL COUNT BODY FLUID 2022-11-14 19:11:00 Rigoberto Phillip [facility] BODY FLUID DIFFERENTIALS 2022-11-14 19:11:00 Rigoberto Phillip [facility] BODY FLUID DIFF PATH 2022-11-14 19:11:00 Rigoberto Phillip [facility] REVIEW [facility] ASPERGILLUS ANTIGEN ASSAY 2022-11-14 19:11:00 Rigoberto [facility] CYTOLOGY NON-FILTER WASHER AND PRESSER 2022-11-14 18:51:00 Rigoberto Phillip [facility] INTERPRETATION [facility] FLEXIBLE BRONCHOSCOPY WITH 2022-11-14 18:40:00 Rigoberto [facility] BRONCHIAL [place] [facility] TRANSFUSE RED BLOOD CELLS 2022-11-14 15:46:00 Antonio Diego Un iversity [facility] POC GLUCOSE SCREEN 2022-11-14 13:56:00 Antonio Diego [facility] TRANSFUSE PLATELETS 2022-11-14 10:50:00 Tracey Geronimo [facility] POC GLUCOSE SCREEN 2022-11-14 09:57:00 Antonio Diego [facility] PREPARE RBC 2022-11-14 08:19:00 Antonio Diego [place] [facility] PRBC PRODUCT READY FOR 2022-11-14 08:19:00 Antonio Diego [facility] PREPARE PLATELETS 2022-11-14 08:06:00 Tracey Geronimo [facility] PLT PRODUCT READY FOR PICK 2022-11-14 08:06:00 Tracey Geronimo [facility] TYPE AND SCREEN 2022-11-14 06:45:00 Antonio Diego [place] [facility] COMPLETE BLOOD COUNT W/ 2022-11-14 06:45:00 Sheela Jackson [facility] DIFFERENTIAL [facility] GLUCOSE, RANDOM 2022-11-14 06:45:00 [facility] CALCIUM LEVEL TOTAL 2022-11-14 06:45:00 Sheela Jackson [facility] BLOOD UREA NITROGEN 2022-11-14 06:45:00 Sheela Jackson [facility] SERUM CREATININE 2022-11-14 06:45:00 [facility] SODIUM LEVEL 2022-11-14 06:45:00 [facility] POTASSIUM LEVEL 2022-11-14 06:45:00 [facility] MAGNESIUM LEVEL 2022-11-14 06:45:00 [facility] CHLORIDE LEVEL 2022-11-14 06:45:00 [facility] CARBON DIOXIDE LEVEL 2022-11-14 06:45:00 Sheela Jackson [facility] TOTAL PROTEIN 2022-11-14 06:45:00 Sheela Jackson [facility] ALBUMIN LEVEL 2022-11-14 06:45:00 [facility] PHOSPHORUS LEVEL 2022-11-14 06:45:00 [facility] FRACTIONATED BILIRUBIN 2022-11-14 06:45:00 Manuel Sheela [facility] ALKALINE PHOSPHATASE 2022-11-14 06:45:00 Sheela Jackson [facility] ALANINE AMINOTRANSFERASE 2022-11-14 06:45:00 [facility] URIC ACID 2022-11-14 06:45:00 [facility] LACTATE DEHYDROGENASE 2022-11-14 06:45:00 Sheela Jackson [facility] HEPATITIS B SURFACE 2022-11-14 06:45:00 Zamzam Judge [facility] ANTIBODY, SERUM [facility] HBV DNA QUANT 2022-11-14 06:45:00 Zamzam Judge [facility] ABORH 2022-11-14 06:45:00 Brandie [facility] ANTIBODY SCREEN 2022-11-14 06:45:00 Brandie [facility] Results CBC 2022-11-14 06:45:00 Sheela Jackson [facility] MANUAL DIFFERENTIAL 2022-11-14 06:45:00 Sheela Jackson [facility] SERUM CREATININE 2022-11-14 06:45:00 [facility] .GLOMERULAR FILTRATION 2022-11-14 06:45:00 Sheela Jackson [facility] RATE [facility] ANION GAP 2022-11-14 06:45:00 [facility] CLOT EXPIRATION DATE 2022-11-14 06:45:00 Antonio Diego [facility] TMP INTERPRETATION 2022-11-14 06:45:00 Antonio Diego [facility] ANTIBODY SCREEN NEGATIVE MD Estrada [facility] POC GLUCOSE SCREEN 2022-11-14 03:58:00 Antonio Diego [facility] POC GLUCOSE SCREEN 2022-11-14 00:20:00 Antonio Diego [facility] TRANSFUSE RED BLOOD CELLS 2022-11-13 21:45:[address] [facility] TRANSFUSE PLATELETS 2022-11-13 18:38:00 [facility] POC GLUCOSE SCREEN 2022-11-13 18:31:00 Antonio Diego [facility] POC GLUCOSE SCREEN 2022-11-13 13:51:00 Antonio Diego [facility] PREPARE PLATELETS 2022-11-13 11:02:00 Antonio Diego [facility] PLT PRODUCT READY FOR PICK 2022-11-13 11:02:00 Antonio Diego [facility] PREPARE RBC 2022-11-13 10:58:00 Antonio Diego [facility] PRBC PRODUCT READY FOR 2022-11-13 10:58:00 Antonio Diego [facility] COMPLETE BLOOD COUNT W/ 2022-11-13 07:46:00 Sheela Jackson [facility] DIFFERENTIAL [facility] GLUCOSE, RANDOM 2022-11-13 07:46:00 Sheela Jackson [facility] CALCIUM LEVEL TOTAL 2022-11-13 07:46:00 Sheela Jackson [facility] BLOOD UREA NITROGEN 2022-11-13 07:46:00 Sheela Jackson [facility] SERUM CREATININE 2022-11-13 07:46:00 [facility] SODIUM LEVEL 2022-11-13 07:46:00 [facility] POTASSIUM LEVEL 2022-11-13 07:46:00 [facility] MAGNESIUM LEVEL 2022-11-13 07:46:00 [facility] CHLORIDE LEVEL 2022-11-13 07:46:00 [facility] CARBON DIOXIDE LEVEL 2022-11-13 07:46:00 Manuel Sheela [facility] TOTAL PROTEIN 2022-11-13 07:46:00 [facility] ALBUMIN LEVEL 2022-11-13 07:46:00 [facility] PHOSPHORUS LEVEL 2022-11-13 07:46:00 [facility] FRACTIONATED BILIRUBIN 2022-11-13 07:46:00 Sheela Jackson [facility] ALKALINE PHOSPHATASE 2022-11-13 07:46:00 Manuel Sheela [facility] ALANINE AMINOTRANSFERASE 2022-11-13 07:46:00 [facility] URIC ACID 2022-11-13 07:46:00 [facility] LACTATE DEHYDROGENASE 2022-11-13 07:46:00 Sehela Jackson [facility] HEPATITIS B SURFACE 2022-11-13 07:46:00 Zamzam Judge [facility] ANTIBODY, SERUM [facility] HBV DNA QUANT 2022-11-13 07:46:00 Zamzam Judge [facility] Results CBC 2022-11-13 07:46:00 Sheela Jackson [facility] SERUM CREATININE 2022-11-13 07:46:00 [facility] .GLOMERULAR FILTRATION 2022-11-13 07:46:00 Sheela Jackson [facility] RATE [facility] ANION GAP 2022-11-13 07:46:00 Manuel Sheela [facility] DIFFERENTIAL CANCEL 2022-11-13 07:46:00 Sheela Jackson [facility] POC GLUCOSE SCREEN 2022-11-13 05:00:00 Antonio Diego [facility] POC GLUCOSE SCREEN 2022-11-13 00:36:00 Antonio Diego [facility] ANTIBODY SCREEN MANUAL 2022-11-12 22:53:00 Antonio Diego [facility] ABORH MANUAL 2022-11-12 22:53:00 Antonio Diego [place] [facility] CLOT EXPIRATION DATE 2022-11-12 22:53:00 Antonio Diego [facility] TMP INTERPRETATION MANUAL 2022-11-12 22:53:00 [facility] ANTIBODY SCREEN NEGATIVE MD Estrada [facility] TMP CROSSMATCH 2022-11-12 22:53:00 Antonio Diego [facility] [place] INTERPRETATION [facility] TRANSFUSION RXN CULTURE 2022-11-12 22:40:00 Kylie Neumann [facility] XR CHEST 1 VW 2022-11-12 22:04:11 Kylie Neumann [facility] URINALYSIS WITH 2022-11-12 22:03:00 Kylie Neumann [facility] MICROSCOPIC IF INDICATED MD Estrada [facility] URINALYSIS MICROSCOPIC 2022-11-12 22:03:00 Kylie Neumann [facility] EXAM [facility] GENERAL LABORATORY ADD ON 2022-11-12 21:47:00 Kylie Neumann [facility] TEST [facility] POC ARTERIAL BLOOD GAS 2022-11-12 21:35:00 Antonio Diego [facility] TRANSFUSION REACTION 2022-11-12 21:33:00 Kylie Neumann [facility] NT PRO BNP 2022-11-12 21:33:00 Kylie Neumann [facility] TMP TRANSFUSION REACTION 2022-11-12 21:33:00 Kylie [facility] INTERPRETATION [facility] POC GLUCOSE SCREEN 2022-11-12 18:32:00 Antonio Diego [facility] TRANSFUSE RED BLOOD CELLS 2022-11-12 18:30:00 Antonio [facility] PREPARE PLATELETS 2022-11-12 17:09:00 Antonio Diego [facility] POC GLUCOSE SCREEN 2022-11-12 14:25:00 Antonio Diego [facility] LOWER RESPIRATORY CULTURE 2022-11-12 11:52:[address] [facility] W/ GRAM STAIN [facility] POC GLUCOSE SCREEN 2022-11-12 11:36:00 Antonio Diego [facility] PREPARE RBC 2022-11-12 09:15:00 Antonio Diego o f [facility] PRBC PRODUCT READY FOR 2022-11-12 09:15:00 Antonio Diego [facility] DIRECTOR DECISION SUPPORT [facility] BLOODCULTURE 2022-11-12 07:30:00 Sheela Jackson [facility] ASPERGILLUS ANTIGEN ASSAY, 2022-11-12 07:19:[address] [facility] SERUM [facility] BLOODCULTURE 2022-11-12 07:19:00 [facility]PLE[facility]LO[facility] W/ 2022-11-12 07:19:00 Sheela Jackson [facility] DIFFERENTIAL [facility] GLUCOSE, RANDOM 2022-11-12 07:19:00 [facility] CALCIUM LEVEL TOTAL 2022-11-12 07:19:00 Sheela Jackson [facility] BLOOD UREA NITROGEN 2022-11-12 07:19:00 Sheela Jackson [facility] SERUM CREATININE 2022-11-12 07:19:00 [facility] SODIUM LEVEL 2022-11-12 07:19:00 aMnuel [facility] POTASSIUM LEVEL 2022-11-12 07:19:00 [facility] MAGNESIUM LEVEL 2022-11-12 07:19:00 [facility] CHLORIDE LEVEL 2022-11-12 07:19:00 [facility] CARBON DIOXIDE LEVEL 2022-11-12 07:19:00 Sheela Jackson [facility] TOTAL PROTEIN 2022-11-12 07:19:00 [facility] ALB[facility] 2022-11-12 07:19:00 [facility] PHOSPHORUS LEVEL 2022-11-12 07:19:00 [facility] FRACTIONATED BILIRUBIN 2022-11-12 07:19:00 Manuel Sheela [facility] ALKALINE PHOSPHATASE 2022-11-12 07:19:00 Manuel [facility] ALANINE AMINOTRANSFERASE 2022-11-12 07:19:00 Sheela [facility] URIC ACID 2022-11-12 07:19:00 [facility] LACTATE DEHYDROGENASE 2022-11-12 07:19:00 Sheela Jackson [facility] PROTHROMBIN TIME 2022-11-12 07:19:00 [facility] APTT 2022-11-12 07:19:00 [facility] D DIMER 2022-11-12 07:19:00 [facility] FIBRINOGEN ACTIVITY 2022-11-12 07:19:00 Manuel Sheela [facility] Results CBC 2022-11-12 07:19:00 [facility] MANUAL DIFFERENTIAL 2022-11-12 07:19:00 Manuel Sheela [facility] SERUM CREATININE 2022-11-12 07:19:00 [facility] .GLOMERULAR FILTRATION 2022-11-12 07:19:00 Manuel Sheela [facility] ANION GAP 2022-11-12 07:19:00 [facility] NT PRO BNP 2022-11-12 07:19:00 [facility] .ASPERGILLUS ANTIGEN 2022-11-12 07:19:[address] [facility] ASSAY, SERUM PATH REVIEW MD Estrada [facility] POC GLUCOSE SCREEN 2022-11-12 03:52:00 Brandie [facility] POC GLUCOSE SCREEN 2022-11-11 22:46:00 Antonio Diego [facility] Center CT CHEST WO CONTRAST 2022-11-11 20:13:05 Zamzam Judge [facility] POC GLUCOSE SCREEN 2022-11-11 14:39:00 Antonio Diego [facility] PREPARE RBC 2022-11-11 10:03:00 Brandie Antonio [place] [facility] PRBC PRODUCT READY FOR 2022-11-11 10:03:00 Antonio Diego [facility] DIRECTOR DECISION SUPPORT [facility] COMPLETE BLOOD COUNT W/ 2022-11-11 08:12:00 Sheela [facility] GLUCOSE, RANDOM 2022-11-11 08:12:00 [facility] CALCIUM LEVEL TOTAL 2022-11-11 08:12:00 Sheela Jackson [facility] BLOOD UREA NITROGEN 2022-11-11 08:12:00 Sheela Jackson [facility] SERUM CREATININE 2022-11-11 08:12:00 [facility] MAGNESIUM LEVEL 2022-11-11 08:12:00 [facility] TOTAL PROTEIN 2022-11-11 08:12:00 [facility] ALBUMIN LEVEL 2022-11-11 08:12:00 [facility] PHOSPHORUS LEVEL 2022-11-11 08:12:00 [facility] FRACTIONATED BILIRUBIN 2022-11-11 08:12:00 Sheela Jackson [facility] ALKALINE PHOSPHATASE 2022-11-11 08:12:00 Sheela Jackson [facility] ALANINE AMINOTRANSFERASE 2022-11-11 08:12:00 [facility] URIC ACID 2022-11-11 08:12:00 [facility] LACTATE DEHYDROGENASE 2022-11-11 08:12:00 Sheela Jackson [facility] ELECTROLYTE PANEL 2022-11-11 08:12:00 Soraya Greer [facility] TYPE AND SCREEN 2022-11-11 08:12:00 Brandie [facility] ABORH 2022-11-11 08:12:00 Brandie [facility] ANTIBODY SCREEN 2022-11-11 08:12:00 Brandie [facility] Results CBC 2022-11-11 08:12:00 Manuel Sheela [facility] MANUAL DIFFERENTIAL 2022-11-11 08:12:00 Sheela Jackson [facility] SERUM CREATININE 2022-11-11 08:12:00 [facility] .GLOMERULAR FILTRATION 2022-11-11 08:12:00 Sheela Jackson [facility] RATE [facility] CLOT EXPIRATION DATE 2022-11-11 08:12:00 Antonio Diego [facility] TMP INTERPRETATION 2022-11-11 08:12:00 Antonio Diego [facility] ANTIBODY SCREEN NEGATIVE MD Estrada [facility] TMP CROSSMATCH 2022-11-11 08:12:00 Brandie [facility] INTERPRETATION [facility] URINE CULTURE 2022-11-11 05:09:00 [facility] URINALYSIS MICROSCOPIC 2022-11-11 05:09:00 Manuel Sheela [facility] XR CHEST 1 VW 2022-11-11 04:44:31 [facility] BLOODCULTURE 2022-11-11 04:28:00 [facility] BLOODCULTURE 2022-11-11 04:13:00 Sehela Jackson [facility] POC GLUCOSE SCREEN 2022-11-11 03:18:00 Antonio Diego [facility] POC GLUCOSE SCREEN 2022-11-11 00:30:00 Antonio Diego [facility] TRANSFUSE PLATELETS 2022-11-10 20:24:00 Antonio Diego [facility] POC GLUCOSE SCREEN 2022-11-10 19:06:00 Antonio Diego [facility] C DIFFICILE DNA ASSAY 2022-11-10 18:45:00 Dang Neves [facility] C DIFFICILE DNA ASSAY PATH 2022-11-10 18:45:00 Dang Neves [facility] POC GLUCOSE SCREEN 2022-11-10 14:57:00 Antonio Diego [facility] TRANSFUSE RED BLOOD CELLS 2022-11-10 12:16:00 [facility] 2022-11-10 09:22:00 Brandie Antonio [facility] PLT PRODUCT READY FOR PICK 2022-11-10 09:22:00 Antonio Diego [facility] PREPARE RBC 2022-11-10 09:21:00 Antonio Diego [facility] PRBC PRODUCT READY FOR 2022-11-10 09:21:00 [facility] COMPLETE BLOOD COUNT W/ 2022-11-10 08:32:00 Sheela Jackson [facility] DIFFERENTIAL [facility] GLUCOSE, RANDOM 2022-11-10 08:32:00 Sheela Jackson [facility] CALCIUM LEVEL TOTAL 2022-11-10 08:32:00 Sheela Jackson [facility] BLOOD UREA NITROGEN 2022-11-10 08:32:00 Sheela Jackson [facility] SERUM CREATININE 2022-11-10 08:32:00 [facility] MAGNESIUM LEVEL 2022-11-10 08:32:00 [facility] TOTAL PROTEIN 2022-11-10 08:32:00 [facility] ALBUMIN LEVEL 2022-11-10 08:32:00 [facility] PHOSPHORUS LEVEL 2022-11-10 08:32:00 [facility] FRACTIONATED BILIRUBIN 2022-11-10 08:32:00 Sheela Jackson [facility] ALKALINE PHOSPHATASE 2022-11-10 08:32:00 Sheela Jackson [facility] ALANINE AMINOTRANSFERASE 2022-11-10 08:32:00 Sheela [facility] URIC ACID 2022-11-10 08:32:00 [facility] LACTATE DEHYDROGENASE 2022-11-10 08:32:00 Sheela Jackson [facility] ELECTROLYTE PANEL 2022-11-10 08:32:00 Soraya Greer [facility] Results CBC 2022-11-10 08:32:00 Sheela Jackson [facility] MANUAL DIFFERENTIAL 2022-11-10 08:32:00 Sheela Jackson [facility] SERUM CREATININE 2022-11-10 08:32:00 [facility]OM[facility] FILTRATION 2022-11-10 08:32:00 Sheela Jackson [facility] POC GLUCOSE SCREEN 2022-11-10 03:36:00 Antonio Diego [facility] MRSA SCREENING CULTURE 2022-11-10 03:22:00 Antonio Diego [facility] POC GLUCOSE SCREEN 2022-11-10 02:03:00 Antonio Diego [facility] POC GLUCOSE SCREEN 2022-11-10 00:32:00 Antonio Diego [facility] POC GLUCOSE SCREEN 2022-11-10 00:09:00 Antonio Diego [facility] TRANSFUSE RED BLOOD CELLS 2022-11-09 19:28:00 Antonio Diego [facility] POC GLUCOSE SCREEN 2022-11-09 18:30:00 Antonio Diego [facility] POC GLUCOSE SCREEN 2022-11-09 14:31:00 Antonio Diego [facility] PREPARE RBC 2022-11-09 08:41:00 Antonio Diego [facility] PRBC PRODUCT READY FOR 2022-11-09 08:41:00 Antonio Diego [facility] DIRECTOR DECISION SUPPORT [facility] COMPLETE BLOOD COUNT W/ 2022-11-09 06:36:00 Sheela Jackson [facility] DIFFERENTIAL [facility] GLUCOSE, RANDOM 2022-11-09 06:36:00 Sheela Jackson [facility] CALCIUM LEVEL TOTAL 2022-11-09 06:36:00 Sheela Jackson [facility] BLOOD UREA NITROGEN 2022-11-09 06:36:00 Sheela Jackson [facility] SERUM CREATININE 2022-11-09 06:36:00 Sheela Jackson [facility] MAGNESIUM LEVEL 2022-11-09 06:36:00 Sheela Jackson [facility] TOTAL PROTEIN 2022-11-09 06:36:00 Sheela Jackson [facility] ALBUMIN LEVEL 2022-11-09 06:36:00 [facility] PHOSPHORUS LEVEL 2022-11-09 06:36:00 [facility] FRACTIONATED BILIRUBIN 2022-11-09 06:36:00 Manuel Sheela [facility] ALKALINE PHOSPHATASE 2022-11-09 06:36:00 Sheela Jackson [facility] ALANINE AMINOTRANSFERASE 2022-11-09 06:36:00 [facility] URIC ACID 2022-11-09 06:36:00 [facility] LACTATE DEHYDROGENASE 2022-11-09 06:36:00 Sheela Jackson [facility] PROTHROMBIN TIME 2022-11-09 06:36:00 [facility] APTT 2022-11-09 06:36:00 [facility] D DIMER 2022-11-09 06:36:00 [facility] FIBRINOGEN ACTIVITY 2022-11-09 06:36:00 Sheela Jackson [facility] ELECTROLYTE PANEL 2022-11-09 06:36:00 Soraya Greer [facility] Results CBC 2022-11-09 06:36:00 [facility] MANUAL DIFFERENTIAL 2022-11-09 06:36:00 Sheela Jackson [facility] SERUM CREATININE 2022-11-09 06:36:00 [facility] .GLOMERULAR FILTRATION 2022-11-09 06:36:00 Sheela Jackson [facility] RATE [facility] POC GLUCOSE SCREEN 2022-11-09 03:00:00 Antonio Diego [facility] POC GLUCOSE SCREEN 2022-11-09 00:04:00 Antonio Diego [facility] ABORH 2022-11-08 23:48:00 Brandie Antonio [facility] ANTIBODY SCREEN 2022-11-08 23:48:00 Brandie Antonio [facility] CLOT EXPIRATION DATE 2022-11-08 23:48:00 Antonio Diego [facility] TMP INTERPRETATION 2022-11-08 23:48:00 Antonio Diego [facility] ANTIBODY SCREEN NEGATIVE MD Estrada [facility] TMP CROSSMATCH 2022-11-08 23:48:00 Brandie Antonio [facility] INTERPRETATION [facility] TRANSFUSION RXN CULTURE 2022-11-08 23:46:00 Cynthia Devine [facility] TRANSFUSION REACTION 2022-11-08 21:34:00 Cynthia Devine [facility] URINALYSIS WITH 2022-11-08 21:34:00 Cynthia Devine [facility] MICROSCOPIC IF INDICATED MD Estrada [facility] URINALYSIS MICROSCOPIC 2022-11-08 21:34:00 Cynthia Devine [facility] EXAM [facility] TMP TRANSFUSION REACTION 2022-11-08 21:34:00 Cynthia Devine [facility] INTERPRETATION [facility] POC GLUCOSE SCREEN 2022-11-08 18:06:00 Antonio Diego [facility] TRANSFUSE RED BLOOD CELLS 2022-11-08 17:00:00 Antonio [facility] COVID-19 (SARS-COV-2) 2022-11-08 14:03:00 [facility]ATIC [facility] ELECTROLYTE PANEL 2022-11-08 14:03:00 [facility]CI[facility] TOTAL 2022-11-08 14:03:00 Antonio Diego [facility] BLOOD UREA NITROGEN 2022-11-08 14:03:00 Antonio Diego [facility] SERUM CREATININE 2022-11-08 14:03:00 Brandie [facility] PHOSPHORUS LEVEL 2022-11-08 14:03:00 Brandie [facility] URIC ACID 2022-11-08 14:03:00 Brandie Antonio [facility] SERUM CREATININE 2022-11-08 14:03:00 Brandie [facility] .GLOMERULAR FILTRATION 2022-11-08 14:03:00 Antonio Diego [facility] RATE [facility] POC GLUCOSE SCREEN 2022-11-08 13:58:00 Brandie Antonio [facility] POC GLUCOSE SCREEN 2022-11-08 12:38:00 Brandie [facility] POC GLUCOSE SCREEN 2022-11-08 09:29:00 Brandie Antonio [facility] PREPARE RBC 2022-11-08 08:25:00 Antonio Diego [facility] PRBC PRODUCT READY FOR 2022-11-08 08:25:00 Antonio Diego [facility] DIRECTOR DECISION SUPPORT [facility] COMPLETE BLOOD COUNT W/ 2022-11-08 07:13:00 Sheela Jackson [facility] DIFFERENTIAL [facility] GLUCOSE, RANDOM 2022-11-08 07:13:00 Sheela Jackson [facility] CALCIUM LEVEL TOTAL 2022-11-08 07:13:00 Sheela Jackson [facility] BLOOD UREA NITROGEN 2022-11-08 07:13:00 Sheela Jackson [facility] SERUM CREATININE 2022-11-08 07:13:00 [facility] SODIUM LEVEL 2022-11-08 07:13:00 [facility] POTASSIUM LEVEL 2022-11-08 07:13:00 [facility] MAGNESIUM LEVEL 2022-11-08 07:13:00 [facility] CHLORIDE LEVEL 2022-11-08 07:13:00 [facility] CARBON DIOXIDE LEVEL 2022-11-08 07:13:00 Manuel Sheela [facility] TOTAL PROTEIN 2022-11-08 07:13:00 [facility] ALBUMIN LEVEL 2022-11-08 07:13:00 [facility] PHOSPHORUS LEVEL 2022-11-08 07:13:00 [facility] FRACTIONATED BILIRUBIN 2022-11-08 07:13:00 Manuel Sheela [facility] ALKALINE PHOSPHATASE 2022-11-08 07:13:00 Manuel [facility] ALANINE AMINOTRANSFERASE 2022-11-08 07:13:00 She[facility] URIC ACID 2022-11-08 07:13:00 [facility] Results CBC 2022-11-08 07:13:00 [facility] MANUAL DIFFERENTIAL 2022-11-08 07:13:00 Sheela Jackson [facility] SERUM CREATININE 2022-11-08 07:13:00 [facility] .GLOMERULAR FILTRATION 2022-11-08 07:13:00 Sheela Jackson [facility] LACTATE DEHYDROGENASE 2022-11-08 07:13:00 hSeela Jackson [facility] ANION GAP 2022-11-08 07:13:00 Sheela Jackson [facility] POC GLUCOSE SCREEN 2022-11-08 03:37:00 Brandie [facility] POC GLUCOSE SCREEN 2022-11-07 23:31:00 Brandie Antonio [facility] TRANSFUSE PLATELETS 2022-11-07 23:30:00 Dang Neves [facility] ELECTROLYTE PANEL 2022-11-07 22:50:00 Brandie [facility] CALCIUM LEVEL TOTAL 2022-11-07 22:50:00 Brandie [facility] BLOOD UREA NITROGEN 2022-11-07 22:50:00 Brandie [facility] SERUM CREATININE 2022-11-07 22:50:00 Brandie [facility] PHOSPHORUS LEVEL 2022-11-07 22:50:00 Brandie [facility] URIC ACID 2022-11-07 22:50:00 Brandie [facility] SERUM CREATININE 2022-11-07 22:50:00 Brandie [facility] .GLOMERULAR FILTRATION 2022-11-07 22:50:00 Antonio [facility] PREPARE PLATELETS 2022-11-07 21:18:00 Dang Neves [facility] PLT PRODUCT READY FOR PICK 2022-11-07 21:18:00 Dang Neves [facility] BLOODCULTURE 2022-11-07 19:27:00 Dang Neves [facility] POC GLUCOSE SCREEN 2022-11-07 18:19:00 Antonio Diego [facility] BLOODCULTURE 2022-11-07 18:16:00 Dang Neves [facility] ELECTROLYTE PANEL 2022-11-07 14:38:00 Antonio iDego [facility] CALCIUM LEVEL TOTAL 2022-11-07 14:38:00 Antonio Diego [facility] BLOOD UREA NITROGEN 2022-11-07 14:38:00 Brandie [facility] SERUM CREATININE 2022-11-07 14:38:00 Brandie [facility] PHOSPHORUS LEVEL 2022-11-07 14:38:00 Brandie [facility] URIC ACID 2022-11-07 14:38:00 Brandie Antonio [facility] SERUM CREATININE 2022-11-07 14:38:00 Brandie [facility] .GLOMERULAR FILTRATION 2022-11-07 14:38:00 Antonio Diego [facility] POC GLUCOSE SCREEN 2022-11-07 13:25:00 Brandie Antonio [facility] COMPLETE BLOOD COUNT W/ 2022-11-07 07:12:00 Sheela Jackson [facility] DIFFERENTIAL [facility] ELECTROLYTE PANEL 2022-11-07 07:12:00 Brandie Antonio [facility] CALCIUM LEVEL TOTAL 2022-11-07 07:12:00 Brandie Antonio [facility] BLOOD UREA NITROGEN 2022-11-07 07:12:00 Antonio Diego [facility] SERUM CREATININE 2022-11-07 07:12:00 Brandie [facility] PHOSPHORUS LEVEL 2022-11-07 07:12:00 Antonio Diego [facility] URIC ACID 2022-11-07 07:12:00 Brandie Antonio [facility] SERUM CREATININE 2022-11-07 07:12:00 Brandie Antonio [facility] .GLOMERULAR FILTRATION 2022-11-07 07:12:00 Antonio Diego [facility] Results CBC 2022-11-07 07:12:00 Manuel Sheela [facility] MANUAL DIFFERENTIAL 2022-11-07 07:12:00 Sheela Jackson [facility] MAGNESIUM LEVEL 2022-11-07 07:12:00 Brandie [facility] ALBUMIN LEVEL 2022-11-07 07:12:00 Brandie Antonio [facility] ALKALINE PHOSPHATASE 2022-11-07 07:12:00 Antonio Diego [facility] ALANINE AMINOTRANSFERASE 2022-11-07 07:12:00 Antonio Diego [facility] ASPARTATE AMINOTRANSFERASE 2022-11-07 07:12:00 Antonio Diego [facility] TOTAL PROTEIN 2022-11-07 07:12:00 Antonio Diego [facility] FRACTIONATED BILIRUBIN 2022-11-07 07:12:00 Antonio Diego [facility] POC GLUCOSE SCREEN 2022-11-07 03:50:00 [facility] 2022-11-07 00:45:00 Dang Neves [facility] URINALYSIS WITH 2022-11-07 00:45:00 Dang Neves [facility] MICROSCOPIC IF INDICATED MD Estrada [facility] URINALYSIS MICROSCOPIC 2022-11-07 00:45:00 Dang Neves [facility] EXAM [facility] POC GLUCOSE SCREEN 2022-11-06 23:14:00 Antonio Diego [facility] ELECTROLYTE PANEL 2022-11-06 22:02:00 Brandie [facility] CALCIUM LEVEL TOTAL 2022-11-06 22:02:00 Antonio Diego [facility] BLOOD UREA NITROGEN 2022-11-06 22:02:00 Antonio Diego [facility] SERUM CREATININE 2022-11-06 22:02:00 Brandie [facility] PHOSPHORUS LEVEL 2022-11-06 22:02:00 Brandie [facility] URIC ACID 2022-11-06 22:02:00 Brandie Antonio [place] [facility] SERUM CREATININE 2022-11-06 22:02:00 Brandie [facility] .GLOMERULAR FILTRATION 2022-11-06 22:02:00 Antonio Diego [facility] RATE [facility] POC GLUCOSE SCREEN 2022-11-06 19:33:00 Brandie Antonio [facility] Center POC GLUCOSE SCREEN 2022-11-06 16:15:00 Brandie [facility] Center POC GLUCOSE SCREEN 2022-11-06 14:57:00 Brandie [facility] Center PETCT SUBSEQUENT TREATMENT 2022-11-06 14:41:35 Antonio Diego [facility] STRATEGY [facility] TYPE AND SCREEN 2022-11-06 07:45:00 Sheela Jackson [facility] COMPLETE BLOOD COUNT W/ 2022-11-06 07:45:00 Sheela Jackson [facility] DIFFERENTIAL [facility] GLUCOSE, RANDOM 2022-11-06 07:45:00 Sheela Jackson [facility] CALCIUM LEVEL TOTAL 2022-11-06 07:45:00 Sheela Jackson [facility] BLOOD UREA NITROGEN 2022-11-06 07:45:00 Sheela Jackson [facility] SERUM CREATININE 2022-11-06 07:45:00 [facility] SODIUM LEVEL 2022-11-06 07:45:00 [facility] POTASSIUM LEVEL 2022-11-06 07:45:00 [facility] MAGNESIUM LEVEL 2022-11-06 07:45:00 [facility] CHLORIDE LEVEL 2022-11-06 07:45:00 [facility] CARBON DIOXIDE LEVEL 2022-11-06 07:45:00 Sheela Jackson [facility] TOTAL PROTEIN 2022-11-06 07:45:00 [facility] ALBUMIN LEVEL 2022-11-06 07:45:00 [facility] PHOSPHORUS LEVEL 2022-11-06 07:45:00 [facility] FRACTIONATED BILIRUBIN 2022-11-06 07:45:00 Sheela Jackson [facility] ALKALINE PHOSPHATASE 2022-11-06 07:45:00 [facility] ALANINE AMINOTRANSFERASE 2022-11-06 07:45:00 [facility] 2022-11-06 07:45:00 [facility] PROTHROMBIN TIME 2022-11-06 07:45:00 [facility] APTT 2022-11-06 07:45:00 Sheela Jackson [facility] [place] D DIMER 2022-11-06 07:45:00 [facility] FIB[facility]IVITY 2022-11-06 07:45:00 Sheela Jackson [facility] [place] ABORH 2022-11-06 07:45:00 [facility] ANTIB[facility] SCREEN 2022-11-06 07:45:00 [facility] Results CBC 2022-11-06 07:45:00 [facility] MANUAL DIFFERENTIAL 2022-11-06 07:45:00 Sheela Jackson [facility] SERUM CREATININE 2022-11-06 07:45:00 [facility] .GLOMERULAR FILTRATION 2022-11-06 07:45:00 Sheela Jackson [facility] RATE [facility] LACTATE DEHYDROGENASE 2022-11-06 07:45:00 Sheela Jackson [facility] ANION GAP 2022-11-06 07:45:00 Manuel Sheela [facility] TMP INTERPRETATION 2022-11-06 07:45:00 Sheela Jackson [facility] ANTIBODY SCREEN NEGATIVE MD Estrada [facility] CLOT EXPIRATION DATE 2022-11-06 07:45:00 She[facility] TMP CROSSMATCH 2022-11-06 07:45:00 Manuel [facility] INTERPRETATION [facility] POC GLUCOSE SCREEN 2022-11-06 03:34:00 Brandie Antonio [facility] er Center POC GLUCOSE SCREEN 2022-11-06 00:29:00 Brandie Antonio [facility] Center POC GLUCOSE SCREEN 2022-11-05 18:42:00 Brandie [facility] POC GLUCOSE SCREEN 2022-11-05 13:02:00 Brandie [facility] COMPLETE BLOOD COUNT W/ 2022-11-05 09:26:00 Sheela Jackson [facility] DIFFERENTIAL [facility] GLUCOSE, RANDOM 2022-11-05 09:26:00 [facility] CALCIUM LEVEL TOTAL 2022-11-05 09:26:00 Sheela Jackson [facility] BLOOD UREA NITROGEN 2022-11-05 09:26:00 Manuel Sheela [facility] SERUM CREATININE 2022-11-05 09:26:00 [facility] SODIUM LEVEL 2022-11-05 09:26:00 [facility] POTASSIUM LEVEL 2022-11-05 09:26:00 [facility] MAGNESIUM LEVEL 2022-11-05 09:26:00 [facility] CHLORIDE LEVEL 2022-11-05 09:26:00 [facility] CARBON DIOXIDE LEVEL 2022-11-05 09:26:00 Manuel Sheela [facility] TOTAL PROTEIN 2022-11-05 09:26:00 [facility] ALBUMIN LEVEL 2022-11-05 09:26:00 [facility] PHOSPHORUS LEVEL 2022-11-05 09:26:00 [facility] FRACTIONATED BILIRUBIN 2022-11-05 09:26:00 Manuel Sheela [facility] ALKALINE PHOSPHATASE 2022-11-05 09:26:00 Manuel [facility] ALANINE AMINOTRANSFERASE 2022-11-05 09:26:00 [facility] URIC ACID 2022-11-05 09:26:00 Sheela Jackson [facility] Results CBC 2022-11-05 09:26:00 Sheela Jackson [facility] MANUAL DIFFERENTIAL 2022-11-05 09:26:00 Sheela Jackson [facility] SERUM CREATININE 2022-11-05 09:26:00 Sheela Jackson [facility] .GLOMERULAR FILTRATION 2022-11-05 09:26:00 Sheela Jackson [facility] RATE [facility] ANION GAP 2022-11-05 09:26:00 Sheela Jackson [facility] LACTATE DEHYDROGENASE 2022-11-05 09:26:00 Sheela Jackson [facility] POC GLUCOSE SCREEN 2022-11-05 03:05:00 Brandie [facility] Center POC GLUCOSE SCREEN 2022-11-05 00:35:00 Brandie [facility] Center POC GLUCOSE SCREEN 2022-11-04 18:12:00 Brandie [facility] Center POC GLUCOSE SCREEN 2022-11-04 14:10:00 Brandie [facility] COMPLETE BLOOD COUNT W/ 2022-11-04 07:46:00 Sheela Jackson [facility] DIFFERENTIAL [facility] GLUCOSE, RANDOM 2022-11-04 07:46:00 Sheela Jackson [facility] CALCIUM LEVEL TOTAL 2022-11-04 07:46:00 Sheela Jackson [facility] BLOOD UREA NITROGEN 2022-11-04 07:46:00 Sheela Jackson [facility] SERUM CREATININE 2022-11-04 07:46:00 [facility] SODIUM LEVEL 2022-11-04 07:46:00 [facility] POTASSIUM LEVEL 2022-11-04 07:46:00 [facility] MAGNESIUM LEVEL 2022-11-04 07:46:00 [facility] CHLORIDE LEVEL 2022-11-04 07:46:00 [facility] CARBON DIOXIDE LEVEL 2022-11-04 07:46:00 Manuel Sheela [facility] TOTAL PROTEIN 2022-11-04 07:46:00 [facility] ALBUMIN LEVEL 2022-11-04 07:46:00 [facility] PHOSPHORUS LEVEL 2022-11-04 07:46:00 [facility] FRACTIONATED BILIRUBIN 2022-11-04 07:46:00 Manuel Sheela [facility] ALKALINE PHOSPHATASE 2022-11-04 07:46:00 aMnuel Sheela [facility] ALANINE AMINOTRANSFERASE 2022-11-04 07:46:00 [facility] URIC ACID 2022-11-04 07:46:00 [facility] LACTATE DEHYDROGENASE 2022-11-04 07:46:00 Manuel Sheela [facility] Results CBC 2022-11-04 07:46:00 [facility] MANUAL DIFFERENTIAL 2022-11-04 07:46:00 Sheela Jackson [facility] SERUM CREATININE 2022-11-04 07:46:00 [facility] .GLOMERULAR FILTRATION 2022-11-04 07:46:00 Sheela Jackson [facility] RATE [facility] er Center ANION GAP 2022-11-04 07:46:00 Sheela Jackson [facility] POC GLUCOSE SCREEN 2022-11-04 02:53:00 Brandie [facility] POC GLUCOSE SCREEN 2022-11-04 00:19:00 Brandie [facility] POC GLUCOSE SCREEN 2022-11-03 17:39:00 Brandie [facility] POC GLUCOSE SCREEN 2022-11-03 15:42:00 Brandie [facility] Center POC GLUCOSE SCREEN 2022-11-03 14:06:00 Brandie [facility] TYPE AND SCREEN 2022-11-03 08:43:00 Sheela Jackson [facility] COMPLETE BLOOD COUNT W/ 2022-11-03 08:43:00 Sheela Jackson [facility] DIFFERENTIAL [facility] GLUCOSE, RANDOM 2022-11-03 08:43:00 [facility] TOTAL 2022-11-03 08:43:00 Sheela Jackson [facility] BLOOD UREA NITROGEN 2022-11-03 08:43:00 Manuel Sheela [facility] SERUM CREATININE 2022-11-03 08:43:00 [facility] SODIUM LEVEL 2022-11-03 08:43:00 [facility] POTASSIUM LEVEL 2022-11-03 08:43:00 [facility] MAGNESIUM LEVEL 2022-11-03 08:43:00 [facility] CHLORIDE LEVEL 2022-11-03 08:43:00 Manuel Sheela [facility] CARBON DIOXIDE LEVEL 2022-11-03 08:43:00 Manuel Sheela [facility] TOTAL PROTEIN 2022-11-03 08:43:00 [facility] ALBUMIN LEVEL 2022-11-03 08:43:00 [facility] PHOSPHORUS LEVEL 2022-11-03 08:43:00 [facility] FRACTIONATED BILIRUBIN 2022-11-03 08:43:00 Manuel Sheela [facility] ALKALINE PHOSPHATASE 2022-11-03 08:43:00 Manuel Sheela [facility] ALANINE AMINOTRANSFERASE 2022-11-03 08:43:00 [facility] URIC ACID 2022-11-03 08:43:00 [facility] LACTATE DEHYDROGENASE 2022-11-03 08:43:00 Sheela Jackson [facility] PROTHROMBIN TIME 2022-11-03 08:43:00 [facility] APTT 2022-11-03 08:43:00 [facility] D DIMER 2022-11-03 08:43:00 [facility] FIBRINOGEN ACTIVITY 2022-11-03 08:43:00 Sheela Jackson [facility] ABORH 2022-11-03 08:43:00 [facility] ANTIBODY SCREEN 2022-11-03 08:43:00 [facility] Results CBC 2022-11-03 08:43:00 [facility] MANUAL DIFFERENTIAL 2022-11-03 08:43:00 Sheela Jackson [facility] SERUM CREATININE 2022-11-03 08:43:00 Manuel Sheela [facility] .GLOMERULAR FILTRATION 2022-11-03 08:43:00 Sheela Jackson [facility] RATE [facility] ANION GAP 2022-11-03 08:43:00 Manuel Sheela [facility] CLOT EXPIRATION DATE 2022-11-03 08:43:00 Manuel Sheela [facility] TMP INTERPRETATION 2022-11-03 08:43:00 Sheela Jackson [facility] ANTIBODY SCREEN NEGATIVE MD Estrada [facility] POC GLUCOSE SCREEN 2022-11-03 04:35:00 Brandie [facility] POC GLUCOSE SCREEN 2022-11-03 01:38:00 Diego, [facility] POC GLUCOSE SCREEN 2022-11-02 19:50:00 Brandie [facility] COMPLETE BLOOD COUNT W/ 2022-11-02 18:30:00 Britta Lee [facility] INDICES [facility] BASIC METABOLIC PANEL, 2022-11-02 18:30:00 Britta Lee [facility] CALCIUM IONIZED [facility] PHOSPHORUS LEVEL 2022-11-02 18:30:00 Britta Lee [facility] URIC ACID 2022-11-02 18:30:00 Britta Lee [facility] GLUCOSE LEVEL 2022-11-02 18:30:00 Britta Lee [facility] BLOOD UREA NITROGEN 2022-11-02 18:30:00 Britta Lee [facility] ELECTROLYTE PANEL 2022-11-02 18:30:00 Britta Lee [facility] SERUM CREATININE 2022-11-02 18:30:00 Britta Lee [facility] .GLOMERULAR FILTRATION 2022-11-02 18:30:00 Britta Lee [facility] RATE [facility] CALCIUM IONIZED, VENOUS 2022-11-02 18:25:00 Britta Lee Judson [facility] POC GLUCOSE SCREEN 2022-11-02 16:05:00 [facility]TE BLOOD [facility] W/ 2022-11-02 08:56:00 Sheela Jackson [facility] DIFFERENTIAL [facility] GLUCOSE, RANDOM 2022-11-02 08:56:00 [facility] CALCIUM LEVEL TOTAL 2022-11-02 08:56:00 Sheela Jackson [facility] BLOOD UREA NITROGEN 2022-11-02 08:56:00 Sheela Jackson [facility] SERUM CREATININE 2022-11-02 08:56:00 [facility] SODIUM LEVEL 2022-11-02 08:56:00 [facility] POTASSIUM LEVEL 2022-11-02 08:56:00 [facility] MAGNESIUM LEVEL 2022-11-02 08:56:00 [facility] CHLORIDE LEVEL 2022-11-02 08:56:00 [facility] CARBON DIOXIDE LEVEL 2022-11-02 08:56:00 Sheela Jackson [facility] TOTAL PROTEIN 2022-11-02 08:56:00 [facility] ALBUMIN LEVEL 2022-11-02 08:56:00 [facility] PHOSPHORUS LEVEL 2022-11-02 08:56:00 Sheela Jackson [facility] FRACTIONATED BILIRUBIN 2022-11-02 08:56:00 Sheela Jackson [facility] ALKALINE PHOSPHATASE 2022-11-02 08:56:00 Sheela Jackson [facility] ALANINE AMINOTRANSFERASE 2022-11-02 08:56:00 [facility] URIC ACID 2022-11-02 08:56:00 Sheela Jackson [facility] LACTATE DEHYDROGENASE 2022-11-02 08:56:00 Sheela Jackson [facility] Results CBC 2022-11-02 08:56:00 Manuel Sheela [facility] MANUAL DIFFERENTIAL 2022-11-02 08:56:00 Sheela Jackson [facility] SERUM CREATININE 2022-11-02 08:56:00 Manuel Sheela [facility] .GLOMERULAR FILTRATION 2022-11-02 08:56:00 Sheela Jackson [facility] ANION GAP 2022-11-02 08:56:00 Manuel Sheela [facility] BASIC METABOLIC PANEL, 2022-11-02 05:39:00 Dang Neves [facility] CALCIUM TOTAL [facility] URIC ACID 2022-11-02 05:39:00 Dang Neevs [facility] POTASSIUM VENOUS 2022-11-02 05:39:00 Dang Neves [facility] GLUCOSE LEVEL 2022-11-02 05:39:00 Dang Neves [facility] BLOOD UREA NITROGEN 2022-11-02 05:39:00 Dang Neves [facility] ELECTROLYTE PANEL 2022-11-02 05:39:00 Dang Neves [facility] SERUM CREATININE 2022-11-02 05:39:00 Dang Neves [facility] .GLOMERULAR FILTRATION 2022-11-02 05:39:00 Dang Neves [facility] RATE [facility] CALCIUM LEVEL TOTAL 2022-11-02 05:39:00 Dang Neves [facility] POC GLUCOSE SCREEN 2022-11-02 03:31:00 Antonio Diego [facility] POC GLUCOSE SCREEN 2022-11-02 01:16:00 Antonio Diego [facility] RESPIRATORY VIRAL 2022-11-01 20:04:00 Dang Neves [facility] MULTIPLEX PCR PANEL, [facility] NASOPHARYNGEAL SWAB Center POC GLUCOSE SCREEN 2022-11-01 19:24:00 Antonio Diego [facility] TRANSFUSE RED BLOOD CELLS 2022-11-01 15:20:00 Antonio [facility] POC GLUCOSE SCREEN 2022-11-01 14:35:00 Antonio Diego [facility] POC GLUCOSE SCREEN 2022-11-01 12:49:00 Antonio Diego [facility] PREPARE RBC 2022-11-01 10:20:00 Brandie Antonio [facility] PRBC PRODUCT READY FOR 2022-11-01 10:20:00 Antonio Diego [facility] DIRECTOR DECISION SUPPORT [facility] BLOODCULTURE 2022-11-01 07:36:00 Sheela Jackson [facility] OSMOLALITY 2022-11-01 07:36:00 Antonio Diego o [facility] BLOODCULTURE 2022-11-01 06:49:00 Sheela Jackson [facility] COMPLETE BLOOD COUNT W/ 2022-11-01 06:49:00 Sheela Jackson [facility] GLUCOSE, RANDOM 2022-11-01 06:49:00 [facility] CALCIUM LEVEL TOTAL 2022-11-01 06:49:00 Sheela Jackson [facility] BLOOD UREA NITROGEN 2022-11-01 06:49:00 Sheela Jackson [facility] SERUM CREATININE 2022-11-01 06:49:00 [facility] SODIUM LEVEL 2022-11-01 06:49:00 [facility] POTASSIUM LEVEL 2022-11-01 06:49:00 [facility] MAGNESIUM LEVEL 2022-11-01 06:49:00 [facility] CHLORIDE LEVEL 2022-11-01 06:49:00 [facility] CARBON DIOXIDE LEVEL 2022-11-01 06:49:00 Sheela Jackson [facility] TOTAL PROTEIN 2022-11-01 06:49:00 [facility] ALBUMIN LEVEL 2022-11-01 06:49:00 [facility] PHOSPHORUS LEVEL 2022-11-01 06:49:00 [facility] FRACTIONATED BILIRUBIN 2022-11-01 06:49:00 Manuel Sheela [facility] ALKALINE PHOSPHATASE 2022-11-01 06:49:00 Manuel [facility] ALANINE AMINOTRANSFERASE 2022-11-01 06:49:00 [facility] URIC ACID 2022-11-01 06:49:00 [facility] LACTATE DEHYDROGENASE 2022-11-01 06:49:00 Sheela Jackson [facility] Results CBC 2022-11-01 06:49:00 Sheela Jackson [facility] MANUAL DIFFERENTIAL 2022-11-01 06:49:00 Sheela Jackson [facility] SERUM CREATININE 2022-11-01 06:49:00 Sheela Jackson [facility] .GLOMERULAR FILTRATION 2022-11-01 06:49:00 Sheela Jackson [facility] RATE [facility] ANION GAP 2022-11-01 06:49:00 Sheela Jackson [facility] POC GLUCOSE SCREEN 2022-11-01 04:34:00 Antonio Diego [facility] POC GLUCOSE SCREEN 2022-11-01 01:29:00 Antonio Diego [facility] POC GLUCOSE SCREEN 2022-11-01 00:41:00 Antonio Diego [facility] POC GLUCOSE SCREEN 2022-10-31 19:23:[address] Antonio [address] [facility] [address] HEAD WO CONTRAST 2022-10-31 19:00:57 Dang Neves [facility] SODIUM URINE 2022-10-31 18:00:00 Dang Neves [facility] OSMOLALITY URINE 2022-10-31 18:00:00 Dang Neves [facility] GENERAL LABORATORY ADD ON 2022-10-31 18:00:00 Alma Herrera [facility] TEST [facility] POC GLUCOSE SCREEN 2022-10-31 14:43:00 Antonio Diego [facility] TRANSFUSE RED BLOOD CELLS 2022-10-31 11:10:[address] [facility] PREPARE RBC 2022-10-31 07:32:00 Antonio Diego [place] [facility] PRBC PRODUCT READY FOR 2022-10-31 07:32:00 Antonio [facility] DIRECTOR DECISION SUPPORT [facility] RESEARCH PROTOCOL 2022-10-31 06:44:00 Dang Neves [facility] [id number] [facility] COMPLETE BLOOD COUNT W/ 2022-10-31 06:44:00 Sheela Jackson [facility] DIFFERENTIAL [facility] GLUCOSE, RANDOM 2022-10-31 06:44:00 [facility] TOTAL 2022-10-31 06:44:00 Sheela Jackson [facility] BLOOD UREA NITROGEN 2022-10-31 06:44:00 Sheela Jackson [facility] SERUM CREATININE 2022-10-31 06:44:00 [facility] SODIUM LEVEL 2022-10-31 06:44:00 [facility] POTASSIUM LEVEL 2022-10-31 06:44:00 [facility] MAGNESIUM LEVEL 2022-10-31 06:44:00 [facility] CHLORIDE LEVEL 2022-10-31 06:44:00 [facility] CARBON DIOXIDE LEVEL 2022-10-31 06:44:00 Sheela Jackson [facility] TOTAL PROTEIN 2022-10-31 06:44:00 [facility] ALBUMIN LEVEL 2022-10-31 06:44:00 [facility] PHOSPHORUS LEVEL 2022-10-31 06:44:00 [facility] FRACTIONATED BILIRUBIN 2022-10-31 06:44:00 Sheela Jackson [facility] ALKALINE PHOSPHATASE 2022-10-31 06:44:00 Manuel Sheela [facility] ALANINE AMINOTRANSFERASE 2022-10-31 06:44:00 She[facility] URIC ACID 2022-10-31 06:44:00 [facility] PROTHROMBIN TIME 2022-10-31 06:44:00 [facility] APTT 2022-10-31 06:44:00 [facility] D DIMER 2022-10-31 06:44:00 [facility] FIBRINOGEN ACTIVITY 2022-10-31 06:44:00 Sheela Jackson [facility] Results CBC 2022-10-31 06:44:00 [facility] MANUAL DIFFERENTIAL 2022-10-31 06:44:00 Sheela Jackson [facility] SERUM CREATININE 2022-10-31 06:44:00 [facility] .GLOMERULAR FILTRATION 2022-10-31 06:44:00 Sheela Jackson [facility] LACTATE DEHYDROGENASE 2022-10-31 06:44:00 Manuel Sheela [facility] ANION GAP 2022-10-31 06:44:00 [facility] HEMOGLOBIN A1C 2022-10-31 06:44:00 [facility] POC GLUCOSE SCREEN 2022-10-31 04:00:00 [facility] CULTURE 2022-10-31 03:27:00 [place], [facility] POC GLUCOSE SCREEN 2022-10-30 23:37:00 Diego, [facility] POC GLUCOSE SCREEN 2022-10-30 17:17:00 Diego, [facility] HP CG CHROMOSOME ANALYSIS 2022-10-30 15:57:00 CastañedaBeto wardol a [facility] COLLECTION, NONBLOOD G [facility] HP CG BCR/ABL1 T(9;22) 2022-10-30 15:57:00 Maame Castañeda [facility] FISH COLLECTION, NONBLOOD G [facility] HP CG CRLF2 FISH 2022-10-30 15:57:00 Castañeda, [place] [facility] COLLECTION, NONBLOOD G [facility] HP CG ABL2 FISH 2022-10-30 15:57:00 Castañeda, [place] [facility] COLLECTION, NONBLOOD G [facility] HP CG JAK2 FISH 2022-10-30 15:57:00 Castañeda, [place] [facility] COLLECTION, NONBLOOD G [facility] HP CG EPOR FISH 2022-10-30 15:57:00 Castañeda, [place] [facility] COLLECTION, NONBLOOD G [facility] HP CG PDGFRB FISH 2022-10-30 15:57:00 Castañeda, [place] [facility] COLLECTION, NONBLOOD G [facility] HP CG KMT2A(MLL) FISH 2022-10-30 15:57:00 Castañeda, [place] [facility], NONBLOOD G [facility] HP CG TP53 CEP17 FISH 2022-10-30 15:57:00 Castañeda [place] [facility] HP ACUTE LEUKEMIA 2022-10-30 15:57:00 CastañedaEben warditolola Uni [facility] TRANSLOCATION SCREEN - G Javad on Cancer T(4;11),T(1;19),T(6;9),T(1 Cente r 2;21),T(9;22) COLLECTION, NONBLOOD HP TP53 COLLECTION, 2022-10-30 15:57:00 Maame Castañeda [facility] NONBLOOD [facility] KRAS MUTATION 2022-10-30 15:57:00 Maame Castañeda [facility] ANALYSIS COLLECTION, [facility] NRAS MUTATION 2022-10-30 15:57:00 Maame Castañeda [facility] ANALYSIS COLLECTION, [facility] JAK2 SEQUENCING 2022-10-30 15:57:00 Maame [facility] ANALYSIS COLLECTION, [facility] T(9;22) BCR/ABL1 2022-10-30 15:57:00 Maame Castañeda [facility] QUANTITATIVE PCR [facility], [facility] [id number] MUTATION 2022-10-30 15:57:00 Maame Castañeda [facility] ANALYSIS COLLECTION, [facility] NOTCH1 - EXONS 26, 2022-10-30 15:57:00 Maame Castañeda [facility] 27, 34 COLLECTION, [facility] PH-LIKE ALL FUSION 2022-10-30 15:57:00 Maame Castañeda [facility] MULTIPLEX PANEL - SEND OUT G MD Tanja monk Cancer COLLECTION, [facility] ADAPTIVE CLONOSEQ-SEND 2022-10-30 15:57:00 Maame Castañeda [facility] OUT, BONE MARROW [facility] FC FLOW CYTOMETRY BLOOD 2022-10-30 15:57:00 Anatoly Castañeda [facility] COLLECTION [facility] MOLECULAR BLOOD 2022-10-30 15:57:00 Maame Castañeda [facility] COLLECTION [facility] ACUTE LEUKEMIA 2022-10-30 15:57:00 Maame Castañeda [facility] TRANSLOCATION SCREEN - Enrique Farnsworth on Cancer T(4;11),T(1;19),T(6;9),T(1 Cente r 2;21),T(9;22) INTERPRETATION AND REPORT ENDLEUKEMIA MUTATION 2022-10-30 15:57:00 Anatoly Castañeda [facility] PANEL V1 INTERPRETATION G [facility] HP CG CHROMOSOME ANALYSIS 2022-10-30 15:57:00 Betzy Castañeda [facility] INTERPRETATION AND REPORT G MD Odonnell [facility] Cancer [facility] CG CBFB 2022-10-30 15:57:00 Maame Castañeda [facility] INV(16)/T(16;16) FISH G MD Fatuma wynne Cancer INTERPRETATION AND REPORT Center [facility] [id number]/RUNX1 2022-10-30 15:57:00 Maame Castañeda [facility] T(8;21) FISH G [facility] INTERPRETATION AND REPORT Center [facility] KMT2A(MLL) FISH 2022-10-30 15:57:00 Maame Castañeda [facility] INTERPRETATION AND REPORT G MD Odonnell [facility] FC ACUTE LEUKEMIA 2022-10-30 15:57:00 Maame Castañeda [facility] SCREEN INTERPRETATION AND G And [facility] Cancer REPORT Center PRELIMINARY MUTATION 2022-10-30 15:57:00 Anatoly Castañeda [facility] ANALYSIS PANEL G [facility] INTERPRETATION AND REPORT Center FLT3 ANALYSIS 2022-10-30 15:57:00 Maame Castañeda [facility] INTERPRETATION AND REPORT G MD Odonnell [facility] CG [id number] FISH 2022-10-30 15:57:00 Maame Castañeda [facility] INTERPRETATION AND REPORT G [facility] TP53 CEP17 FISH 2022-10-30 15:57:00 Maame Castañeda [facility] INTERPRETATION AND REPORT G And [facility] HEMATOPATHOLOGY BONE 2022-10-30 15:51:00 Antonio Diego [facility] MARROW INTERPRETATION MD Fatuma wynne [facility] HEMATOPATHOLOGY BONE 2022-10-30 15:51:00 DiegoAntonio gatica [facility] MARROW DIFFERENTIAL [facility] ME DIAGNOSTIC BONE MARROW 2022-10-30 15:39:05 Betzy Castañeda [facility] BIOPSIES & ASPIRATIONS G MD Farnsworth on [facility] ECHOCARDIOGRAM 2D COMPLETE 2022-10-30 15:27:24 Lucio Sullivan [facility] W CONTRAST L [facility] URINE CULTURE 2022-10-30 12:17:00 [facility] Abundio Roque MD [facility] URINALYSIS WITH 2022-10-30 12:17:00 [facility] MICROSCOPIC IF INDICATED Abundio Estrada [facility] PERIPHERAL SMEAR FOR BONE 2022-10-30 07:14:00 Pascual Sullivan [facility] MARROW L [facility] HP FC PNH COLLECTION, 2022-10-30 07:14:00 Suzanne Sullivan [facility] BLOOD [facility] COMPLETE BLOOD COUNT W/ 2022-10-30 07:14:00 Latrice DuarteMarija [facility] DIFFERENTIAL [facility] COMPREHENSIVE METABOLIC 2022-10-30 07:14:00 Latrice DuarteMarija [facility] PANEL [facility] MAGNESIUM LEVEL 2022-10-30 07:14:00 Latrice DuarteMarija [place] [facility] PHOSPHORUS LEVEL 2022-10-30 07:14:00 Latrice DuarteMarija [facility] PROTHROMBIN TIME 2022-10-30 07:14:00 Latrice DuarteMarija [facility] Results CBC 2022-10-30 07:14:00 Latrice DuarteMarija [place] [facility] MANUAL DIFFERENTIAL 2022-10-30 07:14:00 Angeles Duarte [facility] GLUCOSE LEVEL 2022-10-30 07:14:00 Latrice DuarteMarija [place] [facility] BLOOD UREA NITROGEN 2022-10-30 07:14:00 Angeles Duarte [facility] ELECTROLYTE PANEL 2022-10-30 07:14:00 Angeles Duarte [facility] SERUM CREATININE 2022-10-30 07:14:00 Angeles Duarte [facility] .GLOMERULAR FILTRATION 2022-10-30 07:14:00 Angeles Duarte [facility] RATE [facility] CALCIUM LEVEL TOTAL 2022-10-30 07:14:00 Angeles Duarte [facility] ALBUMIN LEVEL 2022-10-30 07:14:00 Angeles Duarte [facility] ALKALINE PHOSPHATASE 2022-10-30 07:14:00 Angeles Duarte [facility] ALANINE AMINOTRANSFERASE 2022-10-30 07:14:00 Angeles Duarte [facility] ASPARTATE AMINOTRANSFERASE 2022-10-30 07:14:00 Angeles [facility] TOTAL PROTEIN 2022-10-30 07:14:00 Angeles Duarte [facility] FRACTIONATED BILIRUBIN 2022-10-30 07:14:00 Angeles Duarte [facility] HP FC FLOW CYTOMETRY BLOOD 2022-10-30 07:14:00 Lucio Sullivan [facility] COLLECTION L [facility] HP FC PNH INTERPRETATION 2022-10-30 07:14:00 Rachael Sullivan [facility] AND REPORT L [facility] POC GLUCOSE SCREEN 2022-10-30 05:01:00 [facility] CATHETER TIP 2022-10-30 03:09:25 Angeles Duarte [facility] PLACEMENT [facility] XR CHEST 2 VW 2022-10-30 02:30:18 Brandie Antonio [place] [facility] INSERT VASCULAR ACCESS 2022-10-30 01:50:00 Suzanne Sullivan [facility] DEVICE L [facility] TISSUE/FNA CULTURE 2022-10-30 01:09:00 Obdulia Sagastume [facility] FUNGUS CULTURE W/ SMEAR 2022-10-30 01:09:00 Mitesh [facility] [employer] CULTURE W/ SMEAR 2022-10-30 01:09:00 Obdulia Sagastume [facility] VASCULAR ACCESS ULTRASOUND 2022-10-30 00:36:00 Antonio Diego [facility] POC GLUCOSE SCREEN 2022-10-30 00:31:00 Antonio Diego [facility] PATHOLOGY BIOPSY 2022-10-30 00:19:00 Mitesh Obdulia [facility] INTERPRETATION [facility] EKG, 12-LEAD (PORTABLE) 2022-10-30 00:00:00 Antonio Diego [facility] CT CHEST WO CONTRAST 2022-10-29 20:42:36 [facility] FOLATE LEVEL 2022-10-29 18:51:00 Devin Sierra [facility] CONFIRM ABORH TYPE 2022-10-29 18:09:00 Devin Sierra [facility] COVID-19 (SARS-COV-2) 2022-10-29 18:04:00 Princess Thompson [facility] ASYMPTOMATIC-LT Abundio [facility] BLOODCULTURE 2022-10-29 18:00:00 Princess Thompson [facility] COMPLETE BLOOD COUNT W/ 2022-10-29 18:00:00 Princess Thompson [facility] DIFFERENTIAL [facility] CALCIUM LEVEL TOTAL 2022-10-29 18:00:00 Princess Thompson [facility] CHLORIDE LEVEL 2022-10-29 18:00:00 Princess Thompson [facility] er Center CARBON DIOXIDE LEVEL 2022-10-29 18:00:00 Princess Thompson [facility] SERUM CREATININE 2022-10-29 18:00:00 Princess Thompson [facility] BLOOD UREA NITROGEN 2022-10-29 18:00:00 Princess Thompson [facility] GLUCOSE, RANDOM 2022-10-29 18:00:00 [facility] SODIUM LEVEL 2022-10-29 18:00:00 [facility] POTASSIUM LEVEL 2022-10-29 18:00:00 [facility] ALBUMIN LEVEL 2022-10-29 18:00:00 [facility] MAGNESIUM LEVEL 2022-10-29 18:00:00 [facility] PHOSPHORUS LEVEL 2022-10-29 18:00:00 [facility] PROTHROMBIN TIME 2022-10-29 18:00:00 Princess Thompson [facility] APTT 2022-10-29 18:00:00 Princess Thompson [facility] er Center D DIMER 2022-10-29 18:00:00 Princess Thompson [facility] er [place] FIBRINOGEN ACTIVITY 2022-10-29 18:00:00 Princess Thompson [facility] [place] TYPE AND SCREEN 2022-10-29 18:00:00 [facility] ALKALINE PHOSPHATASE 2022-10-29 18:00:00 Princess Thompson [facility] ALANINE AMINOTRANSFERASE 2022-10-29 18:00:00 Princess Thompson [facility] ASPARTATE AMINOTRANSFERASE 2022-10-29 18:00:00 [facility] FRACTIONATED BILIRUBIN 2022-10-29 18:00:00 Princess Thompson [facility] LACTATE DEHYDROGENASE 2022-10-29 18:00:00 Princess Thompson [facility] URIC ACID 2022-10-29 18:00:00 [facility] THYROID STIMULATING 2022-10-29 18:00:00 Princess Thompson [facility] HORMONE [facility] VITAMIN B12 LEVEL 2022-10-29 18:00:00 Princess Thompson [facility] FERRITIN LVL 2022-10-29 18:00:00 [facility] RETICULOCYTE COUNT 2022-10-29 18:00:00 Princess Thompson [facility] AUTOMATED [facility] NT PRO BNP 2022-10-29 18:00:00 [facility] HIV-1/2 ANTIGEN AND 2022-10-29 18:00:00 Princess Thompson [facility] ANTIBODIES, FOURTH [facility] HEPATITIS B CORE ANTIBODY 2022-10-29 18:00:00 Princess Thompson [facility] HEPATITIS C VIRUS ANTIBODY 2022-10-29 18:00:00 Princess Thompson [facility] HEPATITIS B SURFACE 2022-10-29 18:00:00 Princess Thompson [facility] ANTIGEN, SERUM [facility] HEPATITIS A IGM ANTIBODY 2022-10-29 18:00:00 Princess Thompson [facility] SERUM [facility] BETA 2 MICROGLOBULIN 2022-10-29 18:00:00 Princess Thompson [facility] Results CBC 2022-10-29 18:00:00 Devin Sierra [facility] MANUAL DIFFERENTIAL 2022-10-29 18:00:00 Devin [facility] SERUM CREATININE 2022-10-29 18:00:00 Devin Sierra [facility] .GLOMERULAR FILTRATION 2022-10-29 18:00:00 Devin Sierra [facility] RATE [facility] ABORH 2022-10-29 18:00:00 Devin Sierra [facility] ANTIBODY SCREEN 2022-10-29 18:00:00 Devin Sierra [facility] ANION GAP 2022-10-29 18:00:00 Devin Sierra [facility] CBC PATHOLOGY REVIEW 2022-10-29 18:00:00 Devin Sierra [facility] PRELIMINARY DIFFERENTIAL 2022-10-29 18:00[facility]00 [facility] EXPIRATION DATE 2022-10-29 18:00:00 Devin Sierra [facility] TMP INTERPRETATION 2022-10-29 18:00:00 Devin Sierra [facility] ANTIBODY SCREEN NEGATIVE MD Estr[facility] Center PEROXIDASE STAIN PB 2022-10-29 18:00:00 Devin [facility] er Center PML STAIN PB 2022-10-29 18:00:00 Devin Sierra [facility] er Center TMP CROSSMATCH 2022-10-29 18:00:00 Devin Sierra [facility] INTERPRETATION [facility] XR CHEST 1 VW 2022-10-29 17:55:50 Princess Thompson [facility] Abundio [facility] er Center INTUBATION 2020-07-21 12:59:11 Chanelle [facility] NERVE BLOCK 2020-07-21 12:37:47 Chanelle [facility] POCT GLUCOSE(AGE >30DAYS) 2020-07-21 11:23:00 Juanpablo Tabor [facility] [place] DAY SURGERY - ADC 2020-07-21 05:01:00 Doctor Unassigned, [facility] DSU PRE-OP 2020-07-20 05:01:00 Doctor Unassigned, [facility] CONSENT/REFUSAL FOR 2020-07-19 16:28:54 Doctor Unassigned, [facility] DIAGNOSIS AND TREATMENT [facility] ASSIGNMENT OF BENEFITS 2020-07-19 16:28:21 Doctor Unassigned, [facility] NOTICE OF PRIVACY 2020-07-19 16:28:02 Doctor Unassigned, [facility] PRACTICES [facility] CONSENT/REFUSAL FOR 2020-07-19 16:27:43 Doctor Unassigned, [facility] DIAGNOSIS AND TREATMENT [facility] ASSIGNMENT OF BENEFITS 2020-07-19 16:27:22 Doctor Unassigned, [facility] PHYSICIAN ORDERS 2020-07-19 05:01:00 Doctor Unassigned, [facility] Plan of Care Planned Activity Planned Date Details Comments Source Future Scheduled 2022-12-21 COVID-19 Vaccination [facility] Test 09:16:38 (#1) [code = COVID-19 MD And erson Cancer Vaccination (#1)] Center Future Scheduled 2022-12-19 INFLUENZA VACCINE [facility] Test 16:37:51 [code = INFLUENZA VACCINE] Future Scheduled 2022-12-19 COVID-19 VACCINE (#1) [facility] Test 16:37:51 [code = COVID-19 VACCINE (#1)] Future Scheduled 2022-12-19 65+ [facility]AL [facility] 16:37:51 VACCINE (1 - PCV) [code = 65+ PNEUMOCOCCAL VACCINE (1 - PCV)] Future Scheduled 2022-12-19 Hepatitis C screening [facility] Test 16:37:51 (procedure) [code = 826771309] Future Scheduled 2022-12-19 SHINGLES VACCINES (1 Met [facility] Test 16:37:51 of 2) [code = SHINGLES VACCINES (1 of 2)] Future Scheduled 2022-12-19 COLONOSCOPY SCREENING [facility] Test 16:37:51 [code = COLONOSCOPY SCREENING] Encounters Start End Encounter Admission Attending Care Care Encounter Source Date/Time Date/Time Type Type Clinicians Facility Department ID 2022-12-21 Outpatient SYSTEM, ANASTACIA GALAVIZ [id number] 07:21:01 PROVIDER Javad wynne 2022-11-17 Outpatient SYSTEMANASTACIA MDA [id number] 08:14:40 PROVIDER Javad wynne 2022-10-29 Inpatient PRADIP DIEGO MDA MDA [id number] 18:36:00 ANTONIOPaty wynne 2021-09-16 Outpatient Butch [facility] [id number] Univers 15:01:57 TIFFANY mullins [facility] 2022-12-21 2022-12-21 Telephone Javier, 1.2.840.1 [id number] Univers 00:00:00 00:00:00 Cipriano hSah 08351.1.1 ity of 3.412.2.7 [place] .3.335868 .[facility] 2022-12-20 2022-12-20 [facility] Dang Neves 1.2.840.1 [id number] Univers 12:35:52 12:35:52 Encounter Ruby Schulz 20366.1.1 ity of 3.412.2.7 [place] .3.474352 .8 [facility] 2022-12-20 2022-12-20 Outpatient PRADIP NEVES MDA MDA [id number] 12:35:52 12:35:52 DANG wynne 2022-12-20 2022-12-20 Office Dang Neves Haris 1.2.840.1 [id number] [facility] 10:00:00 10:15:00 Visit Melanie Mosley 87417.1.1 ity of 3.412.2.7 [place] .3.455409 MD [facility]oper8 [facility] 2022-12-20 2022-12-20 Outpatient PRADIP NEVES MDA [facility] [id number] 08:07:30 08:07:30 DANG wynne 2022-12-20 2022-12-20 [place] 61099.2.840.1 [id number] [facility] 08:00:00 08:00:00 Encounter Dang Carballo 29641.1.1 ity of 3.412.2.7 [place] .3.628066 MD [facility]oper8 [facility] 2022-12-20 2022-12-20 Outpatient PRADIP NEVES ANASTACIA [facility] [id number] [place] 08:00:00 08:00:00 DANG wynne 2022-12-20 2022-12-20 Travel 1.2.840.1 1.2.423.992 [id number] [facility] 00:00:00 00:00:00 68878.1.1 350.1.13.41 ity of 3.412.2.7 2.[place].3.698 [place] .3.029794 084.8 MD Roper8 [facility] 2022-12-12 2022-12-18 [facility] 1.2.840.1 [id number] [facility] 19:53:00 17:45:00 Encounter Antonio Diego 63342.1.1 ity of [place] 3.412.2.7 [place] .3.363948 MD Roper8 [facility] 2022-12-12 2022-12-18 Inpatient ER ANASTACIA ISLAS Leukemia [id number] 19:53:00 17:45:00 Roz wynne 2022-12-18 2022-12-18 Orders Lamberto, 1.2.840.1 [id number] Univers 00:00:00 00:00:00 Only Rosa Maria 31171.1.1 ity of 3.412.2.7 [place] .3.890806 MD Roper8 [facility] 2022-12-15 2022-12-15 Documentat Bogdan, 1.2.840.1 [id number] Univers 00:00:00 00:00:00 ion Nayla Mya 82145.1.1 ity of 3.412.2.7 [place] .3.299997 MD Roper8 [facility] 2022-12-14 2022-12-14 [facility], 1.2.840.1 [id number] Methodi 23:59:00 23:59:00 Encounter Cristiano Ruelas 21458.1.[address] 3.430.2.7 Hospit a .3.966800 david .8 2022-12-14 2022-12-14 Outpatient [facility] [id number] [place] 00:00:00 00:00:00 CRIST[address] 2022-12-13 2022-12-13 Debora Orantes 1.2.840.1 [id number] Univers 00:00:00 00:00:00 Only Rosa Maria 08686.1.1 ity of 3.412.2.7 [place] .3.333743 MD Roper8 [facility] 2022-12-12 2022-12-12 [facility] Dang Neves 1.2.840.1 [id number] Diana 08:16:45 19:52:00 Donnie Liz 70285.1.1 ity of 3.412.2.7 [place] .3.343473 MD [facility] 2022-12-12 2022-12-12 Outpatient PRADIP NEVES MDA MDA [id number] 08:16:45 19:52:00 DANG wynne 2022-12-12 2022-12-12 Outpatient PRADIP NEVES [facility] ANASTACIA [id number] 14:46:14 19:03:27 DANG wynne 2022-12-12 2022-12-12 [facility] Dang Neves 1.2.840.1 [id number] [facility] 14:00:00 19:03:27 Froylan Ruffin 39566.1.1 ity of 3.412.2.7 [place] .3.608438 MD Roper8 [facility] 2022-12-12 2022-12-12 Follow-Up Diego, 1.2.840.1 [id number] [facility] 13:00:00 13:20:00 Antonio 73725.1.1 ity of 3.412.2.7 [place] .3.012155 MD Roper8 [facility] 2022-12-12 2022-12-12 Outpatient BRANDIE [facility] ANASTACIA [id number] 10:19:53 10:19:53 ANTONIO wynne 2022-12-12 2022-12-12 [facility] Edinson, 1.2.840.1 [id number] [facility] 07:57:21 08:15:00 Kathy Carballo 88802.1.1 ity of 3.412.2.7 [place] .3.486596 MD [facility] 2022-12-12 2022-12-12 Outpatient [facility] [id number] 07:57:21 08:15:00 DANG wynne 2022-12-12 2022-12-12 Orders Pena, 1.2.840.1 [id number] Univers 00:00:00 00:00:00 Only Glen 14582.1.1 ity of [place] 3.412.2.7 [place] .3.166869 MD Roper8 [facility] 2022-12-12 2022-12-12 Orders Dipippo, 1.2.840.1 [id number] Univers 00:00:00 00:00:00 Only Jhoan Henriquez 55004.1.1 ity of 3.412.2.7 [place] .3.453053 .8 [facility] 2022-12-12 2022-12-12 Telephone Christina Jean 1.2.840.1 [id number] Univers 00:00:00 00:00:00 Haris 51562.1.1 ity of 3.412.2.7 [place] .3.348569 .8 [facility] 2022-12-12 2022-12-12 Travel 1.2.840.1 1.2.130.917 [id number] Univers 00:00:00 00:00:00 72240.1.1 350.1.13.41 ity of 3.412.2.7 [place].3.698 [place] .3.121111 084.8 MD [facility] 2022-12-11 2022-12-11 Hospital Mckinley Ledezma 1.2.840.1 [id number] [facility] 07:45:09 23:59:00 Encounter Corine Mccall 01748.1.1 ity of 3.412.2.7 [place] .3.604462 MD oRper8 [facility] 2022-12-11 2022-12-11 Outpatient PRADIP LEDEZMA MDA MDA [id number] 07:45:09 23:59:00 MCKINLEY Farnsworth [facility] 2022-12-11 2022-12-11 Office Dang Neves 1.2.840.1 [id number] Univers 09:00:00 09:15:00 Visit Shellie Almaraz 60750.1.1 ity of 3.412.2.7 [place] .3.592047 MD [facility] 2022-12-11 2022-12-11 Hospital Eliana Neves2.840.1 [id number] Univers 06:08:54 07:44:00 Encounter Dang Carballo 99680.1.1 ity of 3.412.2.7 [place] .3.364161 MD [facility] 2022-12-112022-12-11 [facility] MDA [id number] 06:08:54 07:44:00 DANG wynne 2022-12-11 2022-12-11 Outpatient EDINSON [facility] MDA [id number] 06:09:22 06:09:22 DANG wynne 2022-12-11 2022-12-11 Orders Diego, 1.2.840.1 [id number] Univers 00:00:00 00:00:00 Only Antonio 99896.1.1 ity of 3.412.2.7 [place] .3.374163 MD [facility]oper8 [facility] 2022-12-11 2022-12-11 Travel 1.2.840.1 1.2.626.981 [id number] Univers 00:00:00 00:00:00 62793.1.1 350.1.13.41 ity of 3.412.2.7 2.[place]7.3.698 [place] .3.443107 084.8 MD Roper8 [facility] 2022-12-10 2022-12-10 [facility] Dang Neves 1.2.840.1 [id number] [facility] 11:17:13 23:59:00 Encounter Guerda Hicksenriquecaity 50912.1.1 ity of 3.412.2.7 [place] .3.348437 MD [facility] 2022-12-10 2022-12-10 [facility] MDA [id number] 11:17:13 23:59:00 DANG wynne 2022-12-10 2022-12-10 [facility] [place] 1.2.840.1 [id number] [facility] 07:30:00 11:16:00 Encounter Dang Carballo 85891.1.1 ity of 3.412.2.7 [place] .3.233560 MD Roper8 [facility] 2022-12-10 2022-12-10 Outpatient [facility] MDA [id number] 07:30:00 11:16:00 DANG wynne 2022-12-10 2022-12-10 Travel 1.2.840.1 1.2.450.928 [id number] Univers 00:00:00 00:00:00 21763.1.1 350.1.13.41 ity of 3.412.2.7 [place]7.3.698 [place] .3.503889 084.8 MD [facility] 2022-12-09 2022-12-09 [facility] Mckinley Ledezma 1.2.840.1 [id number] [facility] 13:05:53 23:59:00 Encounter Loida Ball 45957.1.1 ity of 3.412.2.7 [place] .3.489186 MD [facility] 2022-12-09 2022-12-09 Outpatient PRADIP LEDEZMA MDA MDA [id number] 13:05:53 23:59:00 MCKINLEY Farnsworth ricci 2022-12-09 2022-12-09 [facility] [place] 1.2.840.1 [id number] [facility] 07:00:00 13:04:00 Encounter Dang Carballo 73854.1.1 ity of 3.412.2.7 [place] .3.067804 MD [facility] 2022-12-09 2022-12-09 Outpatient PRADIP NEVES MDA MDA [id number] 07:00:00 13:04:00 DANG wynne 2022-12-09 2022-12-09 Travel 1.2.840.1 1.2.725.642 [id number] [facility] 00:00:00 00:00:00 61770.1.1 350.1.13.41 ity of 3.412.2.7 [place]7.3.698 [place] .3.706692 084.8 MD [facility] 2022-10-29 2022-12-08 [facility] Devin Sierra 1.2.840.1 [id number] [facility] 11:07:00 16:51:00 Encounter Antonio Diego 66151.1.1 ity of Jennifer Calle 3.412.2.7 [place] .3.643006 MD [facility] 2022-10-29 2022-12-08 Inpatient ER ALVA ANASTACIA Leukemia [id number] 11:07:00 16:51:00 JENNIFER Farnsworth o n 2022-12-08 2022-12-08 Inpatient PRADIP NEVES ANASTACIA MDA [id number] 10:01:31 10:33:23 DANG Farnsworth libia n 2022-12-08 2022-12-08 Debora Neves, 1.2.840.1 [id number] Univers 00:00:00 00:00:00 Only Dang Carballo 46636.1.1 it y of 3.412.2.7 [place] .3.186733 MD [facility] 2022-12-07 2022-12-07 Debora Neves, 1.2.840.1 [id number] Univers 00:00:00 00:00:00 Only Dang Carballo 37659.1.1 it y of 3.412.2.7 [place] .3.728056 MD [facility] 2022-12-02 2022-12-02 Martínez Urena 1.2.840.1 [id number] Univers 00:00:00 00:00:00 Only David 23470.1.1 ity of 3.412.2.7 [place] .3.297846 MD [facility] 2022-11-27 2022-11-27 Travel 1.2.840.1 1.2.065.745 [id number] [id number] Univers 00:00:00 00:00:00 42208.1.1 350.1.13.41 ity of 3.412.2.7 [place]7.3.698 [place] .3.912214 084.8 MD [facility] 2022-11-27 2022-11-27 Debora Plascencia 1.2.840.1 [id number] Univers 00:00:00 00:00:00 Only Mary Jane 77079.1.1 ity of 3.412.2.7 [place] .3.437218 MD Roper8 [facility] 2022-11-27 2022-11-27 Orders Edinson, 1.2.840.1 [id number] Univers 00:00:00 00:00:00 Only Dang Carballo 31549.1.1 it y of 3.412.2.7 [place] .3.981350 MD Roper8 [facility] 2022-11-21 2022-11-21 Orders Neil, 1.2.840.1 [id number] Univers 00:00:00 00:00:00 Only Papi 56003.1.1 ity of 3.412.2.7 [place] .3.354699 MD [facility] 2022-11-20 2022-11-20 Orders Brandie 1.2.840.1 [id number] Univers 00:00:00 00:00:00 Only Antonio 62809.1.1 ity of 3.412.2.7 [place] .3.087864 MD [facility] 2022-11-19 2022-11-19 Orders Zamzam Judge 1.2.840.1 [id number] Univers 00:00:00 00:00:00 Only Varsha 50927.1.1 ity of 3.412.2.7 [place] .3.980281 MD [facility] 2022-11-14 2022-11-14 Surgery Kenji, 1.2.840.1 [id number] Univers 10:34:00 11:34:00 Rigoberto John 20846.1.1 ity of 3.412.2.7 [place] .3.886188 MD [facility] 2022-11-11 2022-11-11 Orders Brandie, 1.2.840.1 [id number] Univers 00:00:00 00:00:00 Only Antonio 61462.1.1 ity of 3.412.2.7 [place] .3.734310 MD Roper8 [facility] 2022-11-07 2022-11-07 Orders Diego, 1.2.840.1 [id number] Univers 00:00:00 00:00:00 Only Antonio 31193.1.1 ity of 3.412.2.7 [place] .3.926256 MD Roper8 [facility] 2022-11-06 2022-11-06 Orders Diego, 1.2.840.1 [id number] Univers 00:00:00 00:00:00 Only Antonio 05087.1.1 ity of 3.412.2.7 [place] .3.806704 MD Rpoer8 [facility] 2022-11-06 2022-11-06 Documentat Martina, 1.2.840.1 [id number] Univers 00:00:00 00:00:00 ion Kailyn 48167.1.1 ity of 3.412.2.7 [place] .3.825905 MD Roper8 [facility] 2022-11-03 2022-11-03 Documentat Blackmon, 1.2.840.1 [id number] Univers 00:00:00 00:00:00 ion Oziel 06040.1.1 ity of 3.412.2.7 [place] .3.817551 MD Roper8 [facility] 2022-11-03 2022-11-03 Orders Diego, 1.2.840.1 [id number] Univers 00:00:00 00:00:00 Only Antonio 98179.1.1 ity of 3.412.2.7 [place] .3.005534 MD Roper8 [facility] 2022-11-02 2022-11-02 Orders Diego, 1.2.840.1 [id number] Univers 00:00:00 00:00:00 Only Antonio 38372.1.1 ity of 3.412.2.7 [place] .3.876869 MD Roper8 [facility] 2022-11-012022-11-01 Orders Diego, 1.2.840.1 [id number] Univers 00:00:00 00:00:00 Only Antonio 96127.1.1 ity of 3.412.2.7 [place] .3.464142 MD [facility] 2022-10-30 2022-10-30 Documentat Blackmon, 1.2.840.1 [id number] 1 [id number] Univers 00:00:00 00:00:00 ion Oziel 95357.1.1 ity of 3.412.2.7 [place] .3.272835 MD Ropre8 [facility] 2022-10-30 2022-10-30 Orders Diego, 1.2.840.1 [id number] Univers 00:00:00 00:00:00 Only Antonio 93851.1.1 ity of 3.412.2.7 [place] .3.778399 MD Roper8 [facility] 2022-10-29 2022-10-29 Inpatient [facility] MDA [id number] 18:34:04 19:54:38 SJimie [facility] 2022-10-29 2022-10-29 Inpatient [facility] MDA [id number] 18:34:04 19:36:24 S, SUZANNE Odonnelle [facility] 2022-10-29 2022-10-29 Orders Diego, 1.2.840.1 [id number] Univers 00:00:00 00:00:00 Only Antonio 22351.1.1 ity of 3.412.2.7 [place] .3.045443 MD Roper8 [facility] 2022-10-29 2022-10-29 Travel 1.2.840.1 1.2.098.114 [id number] Univers 00:00:00 00:00:00 64188.1.1 350.1.13.41 ity of 3.412.2.[place].3.698 [place] .[place].175544 084.8 MD Roper8 [facility] 2020-10-11 2020-10-11 Outpatient [facility] [id number] [place] 00:00:00 00:00:00 CHRISTIANNE 553 Method i 2020-10-11 2020-10-11 Outpatient [facility] [id number] [place] 00:00:00 00:00:00 CHRISTIANNE 555 Method i 2020-07-21 2020-07-21 [facility] 1.2.840.114 [id number] Univers 06:09:00 12:00:00 Encounter Tiffany Sultana 350.1.13.10 [place] [id number] 071 Branch 2020-07-21 2020-07-21 Anesthesia Marlon Paz [facility] 1.2.840.11 [id number] Univers 07:36:00 10:26:00 Cammie Roca 350.1.13.10 [place] [id number] [facility] 020 Branch 2020-07-21 2020-07-21 Letter CAMMIE Roche 1.2.840.114 [id number] Univers 00:00:00 00:00:00 (Out) Gaby GUTIERREZ 350.1.13.10 it y of [facility] 4.2.7.2.686 Michael as [id number] [facility] 019 Branch 2020-07-21 2020-07-21 Orders Doctor BONDS 1.2.840.114 [id number] Univers 00:00:00 00:00:00 Only UnassignedBRENDA 350.1.13.10 ity of [place] [facility] 4.2.7.2.686 Michael as [phone] [facility] [address] 2020-07-20 2020-07-20 Outpatient R NILSON [facility] [id number] Univers 13:30:00 13:30:00 TIFFANY mullins [facility] 2020-07-20 2020-07-20 Laboratory Only, Adc Test [facility] 1.2.840. 114 [id number] Univers 12:41:56 12:55:56 Only Tiffany Devine 350.1. 13.10 ity of [place] 4[place]2.7.2.[place] [phone] [address] 2020-07-20 2020-07-20 Orders Doctor CAMMIE 1.2.840.114 [id number] Univers 00:00:00 00:00:00 Only Unassigned, BRENDA 350.1.13.10 ity of [place] [facility] 4.2.7.2.686 Michael as [phone] [address] 2020-07-19 2020-07-19 Soil Technician Mirlande, Adc Lab Main [facility] 1.2.8 40.114 [id number] Univers 11:31:02 11:46:02 Visit Tiffany Devine 350.1. 13.10 ity of [place] 4.2.7.2.686 [facility] [phone] [address] 2020-07-19 2020-07-19 Outpatient R NILSON [facility] [id number] Univers 11:30:00 11:30:00 TIFFANY mullins [facility] 2020-07-19 2020-07-19 Orders Doctor CAMMIE 1.2.840.114 [id number] Univers 00:00:00 00:00:00 Only Unassigned, BRENDA 350.1.13.10 ity of [place] [facility] 4.2.7.2.686 Michael as [phone] [address] Results Test Description Test Time Test Comments Results Result Comments Source TMP Interpretation Antibody Screen Negative 2022-12-20 20:12 :25 Test Item Value Reference Range Interpretation Comme nts TMP Auto At the present MARGARET Neg ABSC time, patient Mary SOTO vincent by: MARGARET RODRÍGUEZ,Dictated Date/Time: Interp plasma shows no 12.20.2022 1 4:12 PM [employer]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 12.20.2022 1 4:12 PM 7535) [facility] CenterAntibody [id number] 17:44:47 Test Item Value Reference Range Interpretation Comments ABSC. (test code = Negative ABSC 890-4) ANEESH (test code = ANEESH) Labs and RR: 12/13/22, 12/15/22, 12/18/22, 12/20/22, 12/22/22 [facility]ABORh2023-02-01 17:44:46 Test Item Value Reference Range Interpretation Comments ABORh. (test code = A POS 882-1) ANEESH (test code = ANEESH) Labs and RR: 12/13/22, 12/15/22, 12/18/22, 12/20/22, 12/22/22 [facility] CenterClot Expiration [id number] 17:44:36 Test Item Value Reference Range Interpretation Comments T & S Expiration (test code = 12/23/2022 5318) [facility] CenterElectrolyte [id number] 17:34:42 Test Item Value Reference Range Interpretation Comments Sodium Lvl (test code 141 See_Comment [Auto mated = 2951-2) message] The system which generated this result transmit vincent reference range : 136 - 145 mEq/L . The reference range was not u sed to interpret th is result as normal/abnormal . Potassium Lvl (test 2.6 See_Comment L [Automa vincent code = 2823-3) message] The system which generated this result transmit vincent reference range : 3.5 - 5.1 mEq/L . The reference range was not u sed to interpret th is result as normal/abnormal . Chloride (test code = 104 See_Comment [Auto mated 2074-0) message] The system which generated this result transmit vincent reference range : 98 - 107 mEq/L. The reference range was not u sed to interpret th is result as normal/abnormal . CO2 (test code = 26 See_Comment [Automated 2028-07) message] The system which generated this result transmit vincent reference range : 22 - 29 mEq/L. The reference range was not used to interpret this result as normal/abnormal . Anion Gap (test code 11 See_Comment [Autom ated = 50113-7) message] The system which generated this result transmit vincent reference range : 4 - 14 mEq/L. The reference range was not used to interpret this result as normal/abnormal . ANEESH (test code = ANEESH) Labs and RR: 12/13/22, 12/15/22, 12/18/22, 12/20/22, 12/22/22Schedule in Fast Track Lab Interpretation Abnormal (test code = 02483-5) [facility] CenterDifferential2023-02-01 16:28:21 Test Item Value Reference Range Interpretation Comments Total Cells (test code 114 = 11470-3) Neutrophil % (test 71.0 % 42.0-66.0 H The Neutr ophil code = 70250-3) count includ es Bands. Lymphocyte % (test 18.0 % 24.0-44.0 L code = 737-7) Monocyte % (test code 10.0 % 2.0-7.0 H = 744-3) Basophil % (test code 1.0 % 0.0-1.0 = 707-0) Neutrophil Abs (test 0.92 K/uL 1.70-7.30 L code = 753-4) Lymphocyte Abs (test 0.23 K/uL 1.00-4.80 L code = 732-8) Monocyte Abs (test 0.13 K/uL 0.08-0.70 code = 743-5) Basophil Abs (test 0.01 K/uL 0.00-0.10 code = 705-4) RBC Morph (test code = Present Normal A 6742-1) Anisocytosis (test Present Not Present A code = 702-1) Macrocyte (test code = Present Not Present A 738-5) Slide Comments (test See Note A PLT: Pl atelet code = 5447) morphology norm al ANEESH (test code = ANEESH) Labs and RR: 12/13/22, 12/15/22, 12/18/22, 12/20/22, 12/22/22Schedule in Fast Track Lab Interpretation Abnormal (test code = 78773-9) [facility].[id number] 16:28:17 Test Item Value Reference Range Interpretation Comments WBC (test code = 1.3 K/uL 4.0-11.0 L 6690-2) RBC (test code = 3.26 See_Comment L [Automated 789-8) message] The sy stem which generated this result transmitted reference range : 4.50 - 6.00 M/u L. The reference r ildefonso was not used to interpret this result as normal/abnormal . Hgb (test code = 9.1 See_Comment L [Automated 718-7) message] The sy stem which generated this result transmitted reference range : 14.0 - 18.0 gm/ dL. The reference r ildefonso was not used to interpret this result as normal/abnormal . Hct (test code = 27.0 % 40.0-54.0 L 4544-3) MCV (test code = 83 fL 82-98 787-2) MCH (test code = 27.9 pg 27.0-31.0 785-6) MCHC (test code = 33.7 See_Comment [Automate d 786-4) message] The sy stem which generated this result transmitted reference range : 31.0 - 36.0 gm/ dL. The reference r ildefonso was not used to interpret this result as normal/abnormal . RDW-SD (test code = 42.5 fL 35.1-46.3 91673-4) RDW-CV (test code = 14.8 % 12.0-15.5 788-0) Platelet count (test 135 K/uL 140-440 L code = 777-3) MPV (test code = 10.2 fL 4.0-10.4 22393-1) INRBC (test code = 0.0 % <=0.0 The INRBC 44727-0) (instrument NRB C) value reflects the enumerationof nucleated red b lood cells contained in a 200uL sampleo f whole blood analyzed by the instrument. Thi s value maydiffer from the NRBC v alue reported in a manual differential,wh ich is based on a 1 00 cell differenti al. ANEESH (test code = ANEESH) Labs and RR: 12/13/22, 12/15/22, 12/18/22, 12/20/22, 12/22/22Schedule in Fast Track Lab Interpretation Abnormal (test code = 62344-5) [facility] CenterFractionated Vtbjzzkzz3554-60-85 15:52:52 Test Item Value Reference Range Interpretation Comments Bili Total (test 0.7 mg/dL <=1.2 Indocyanine Green (ICG) code = 1974-) may cause fal sely elevated biliru bin results. Total and direct bilirubi n must not be measured from samples contain ing indocyanine gre en. False elevation of total bilirubin can be seen in patient s with IgG concentrati ons above 28 g/L. Bili Direct (test 0.2 mg/dL <=0.3 Indocyanin e Green (ICG) code = 1967-) may cause fal sely elevated biliru bin results. Total and direct bilirubi n must not be measured from samples contain ing indocyanine gre en. Bili Indirect 0.5 mg/dL 0.0-0.9 (test code = 1970-) ANEESH (test code = Labs and RR: ANEESH) 12/13/22, 12/15/22, 12/18/22, 12/20/22, 12/22/22 [facility] FillmoreGlomerular Filtration Rate 2022-12-20 15:52:51 Test Item Value Reference Range Interpretation Comments eGFR (test 88 See_Comment The eGFRcr is c alculated code = 81999) with the 2020 CKD-EPI creatinine equa tion using creatinine, pat ient's age, and sex fo r adults 18 years of age and older. Other fa ctors, especially musc le mass, may affect accu racy and need to be considered.Acco rding to the Kidney Dise ase: Improving Globa l Outcomes (KDIGO) CKD Wor k Group 2012 Clinical P enrique Guideline, chronic care nurse nhi kidney disease (CKD) i s defined as the abnormal ities of kidney structur e or function, prese nt for more than 3 mon ths, with implications fo r health. CKD should be c lassified by cause, GFR c ategory, and albuminuria category. KDIGO guideline s provide the following G FR categoriesStage Description GFR mL/min/1.73 m2G 1* Normal or high >= 90G2 * Mildly decreased 60-89 G3a Mildly to moderately d ecreased 45-59G3b Modera tely to severely decrea sed 30-44G4 Severel y decreased 15-29 G5 Kidney failure <15*In the absence of evid ence of kidney damage, neither G1 nor G2 fulfill criteria for CKD. [Autom ated message] The sy stem which generated this result transmitted ref erence range: >=60 mL/ min/1.73 sq. m. The refe rence range was not u sed to interpret this result as normal/abnormal . ANEESH (test code Labs and RR: = ANEESH) 12/13/22, 12/15/22, 12/18/22, 12/20/22, 12/22/22Schedule in Fast Track [facility] CenterUric [id number] 15:52:50 Test Item Value Reference Range Interpretation Comments Uric Acid (test code = 3.4 mg/dL 3.4-7.0 3084-1) ANEESH (test code = ANEESH) Labs and RR: 12/13/22, 12/15/22, 12/18/22, 12/20/22, 12/22/22Schedule in Fast Track [facility] CenterTotal [id number] 15:52:49 Test Item Value Reference Range Interpretation Comments Total Protein (test code 6.8 g/dL 6.4-8.3 = 2885-2) ANEESH (test code = ANEESH) Labs and RR: 12/13/22, 12/15/22, 12/18/22, 12/20/22, 12/22/22Schedule in Fast Track [facility] CenterMagnesium Kidqe0767-97-72 15:52:48 Test Item Value Reference Range Interpretation Comments Magnesium (test code = 1.2 mg/dL 1.6-2.6 L 96862-3) ANEESH (test code = ANEESH) Labs and RR: 12/13/22, 12/15/22, 12/18/22, 12/20/22, 12/22/22Schedule in Fast Track Lab Interpretation (test Abnormal code = 22869-4) [facility] CenterAlkaline Yghzsdcxwlw8582-43-39 15:52:47 Test Item Value Reference Range Interpretation Comments Alk Phos (test code = 112 U/L 40-129 6768-6) ANEESH (test code = ANEESH) Labs and RR: 12/13/22, 12/15/22, 12/18/22, 12/20/22, 12/22/22Schedule in Fast Track [facility] CenterAlanine Uvlwcjrubjjhqvlh5810-51-09 15:52:46 Test Item Value Reference Range Interpretation Comments ALT (test code = 1742-6) 93 U/L <=41 H ANEESH (test code = ANEESH) Labs and RR: 12/13/22, 12/15/22, 12/18/22, 12/20/22, 12/22/22Schedule in Fast Track Lab Interpretation (test Abnormal code = 22986-0) [facility].Serum Svwsfouteo3042-22-20 15:52:44 Test Item Value Reference Range Interpretation Comments Creatinine (test code = 0.93 mg/dL 0.67-1.17 2160-0) ANEESH (test code = ANEESH) Labs and RR: 12/13/22, 12/15/22, 12/18/22, 12/20/22, 12/22/22Schedule in Fast Track [facility] CenterGlucose, Qqcisl6127-86-60 15:52:43 Test Item Value Reference Range Interpretation Comments Glucose Random 185 mg/dL 70-199 Effective 05/20 06/03, (test code = the glucose ref erence 2345-7) intervals have been updated based o n [place] [employer] guidelines (Sta ndards of Medical Care in Diabetes 2016. Diabetes Care 2 016; 39: S13-S22).Fa sting blood glucose:N ormal: 70-99 mg/dLImpa ired fasting glucose (increased risk for diabetes or pre-diabetes): 100-125 mg/dLDi abetes mellitus: >/=12 6 mg/dL Random bl ood glucose:Normal: 70-199 mg/dLNot e: Random glucose >100 mg/dL is associ ated with increased risk for diabetes ANEESH (test code = Labs and RR: ANEESH) 12/13/22, 12/15/22, 12/18/22, 12/20/22, 12/22/22Schedule in Fast Track [facility] CenterBUN2023-02-01 15:52:42 Test Item Value Reference Range Interpretation Comments BUN (test code = 10 mg/dL - 3094-0) ANEESH (test code = ANEESH) Labs and RR: 12/13/22, 12/15/22, 12/18/22, 12/20/22, 12/22/22 [facility] CenterPhosphorus Shfrs2352-33-34 15:52:41 Test Item Value Reference Range Interpretation Comments Phosphorus (test code = 4.4 mg/dL 2.5-4.5 2777-1) ANEESH (test code = ANEESH) Labs and RR: 12/13/22, 12/15/22, 12/18/22, 12/20/22, 12/22/22Schedule in Fast Track [facility] CenterCalcium Odxct1150-31-82 15:52:40 Test Item Value Reference Range Interpretation Comments Calcium Lvl (test code = 8.9 mg/dL 8.4-10.2 83389-3) ANEESH (test code = ANEESH) Labs and RR: 12/13/22, 12/15/22, 12/18/22, 12/20/22, 12/22/22Schedule in Fast Track [facility] CenterAlbumin Rmcnp3017-49-36 15:52:39 Test Item Value Reference Range Interpretation Comments Albumin Lvl (test 3.0 See_Comment L [Automate d code = 1751-7) message] The system which generated this result transmit vincent reference range : 3.5 - 5.2 gm/dL . The reference range was not u sed to interpret th is result as normal/abnormal . ANEESH (test code = ANEESH) Labs and RR: 12/13/22, 12/15/22, 12/18/22, 12/20/22, 12/22/22Schedule in Fast Track Lab Interpretation Abnormal (test code = 28824-4) [facility] CenterLDH2023-02-01 15:44:45 Test Item Value Reference Range Interpretation Comments LDH (test code 195 U/L 135-225 Results great er than = 42187-6) 1651 U/L may no t be reliable due to matrix effect with ext ended dilution as it exceeds the manufacture r's recommended clemente it. Caution should be exercised when interpreting gordon ch values and done in conjunction wit h clinical contex t. ANEESH (test code Labs and RR: = ANEESH) 12/13/22, 12/15/22, 12/18/22, 12/20/22, 12/22/22Schedule in Fast Track [facility] CenterLower Respiratory Culture w/Gram Osjle2033-57-42 21:01:35 Test Item Value Reference Range Interpretation Comments Final Report (test code Normal site mariama A = 8488) present.Generally of low significance.Correlate with clinical data and culture history. Path Review (test code The results have been A = 8492) reviewed and electronically signed by Pathologist:BRODY GRIFFIN MD #[id number] Gram Stain Report (test Epithelial cells A code = 648-6) seenNo WBC's seen.Moderate Gram Positive CocciGram stain indicative of saliva Lab Interpretation Abnormal (test code = 15219-6) [facility] CenterPosaconazole Rakfk6200-33-81 19:55:36 Test Item Value Reference Interpretation Comments Range Posacnaz 3530 ng/mL >=700 -----ADDITION [facility] GRAFF (test code = INFORMATION---- 26020-6) --This test was developed and its perform ance characteristics determined by [facility] in a manner consistent with CLIArequirement s. This test has not been cl eared or approved bythe U.S. Food and Drug Administra tion. Test Performed by:[facility] [place] [address], [place], [place] [address]Elw Direct or: Tristan Amos M.D. Ph.D.; CLIA# [id number] ANEESH (test Drug level should code = ANEESH) ideally be drawn as a trough prior to administration of the next dose. [facility] CenterBlood xvfdons0923-50-48 01:33:42 Test Item Value Reference Range Interpretation Comments Final Report (test No growth code = 8488) Path Review - Immunity and antibiotic Bottle/Isolator use may render culture (test code = 8499) negative. Ongoing infection requires repeat culture.The results have been reviewed and electronically signed by Pathologist:BRODY GRIFFIN MD #[id number] ANEESH (test code = One or both cultures ANEESH) bottles underfilled (< 5ml). This will result in decreased sensitivity in pathogen detection. [facility] Glucose Boqzjj2967-40-09 19:25:55 Test Item Value Reference Interpretation Comments Range POC Glucose (test 256 mg/dL 70-99 H RN Notifie dCapillary code = 5651) blood samples, e.g. obtained by fingerstick, ma y have inaccurate resu lts in patients with decreased perip heral blood flow. All POC Glucose screen test results, includ ing critical values , must be interpreted and evaluated in th e context of the patients clinical findi ngs. It is recommended to confirm any questionable te st results by core lab methodology. Me thod description: Al l results are boy sured using Electroch emistry test methodolog y. The glucose in the sample mixes with the reagents on the test strip. The reac tion produces an rosa ctric current. The am ount of current produce d is proportional to the glucose concent ration in the blood. PO Sample Type (test Capillary code = 9554) Performing Lab (test MDA Main Main [facility] code = 09075) [facility] MD Tanja monk Clinical Lab, [address] [place] [address] 770 30; Road Manager: Leslie Ventura MD; Waived Point of Care Testing - Jigna hudson MD Lab Interpretation Abnormal (test code = 40266-6) [facility] CenterAnion [id number] 07:43:16 Test Item Value Reference Range Interpretation Comments Anion Gap (test code 11 See_Comment [Autom ated message] The = 99415-1) system which ge nerated this result transmit vincent reference range : 4 - 14 mEq/L. The refe rence range was not used to interpret this result as normal/abnormal . [facility] CenterChloride Nkmiz1983-22-09 07:43:13 Test Item Value Reference Range Interpretation Comments Chloride (test code = 107 See_Comment [Auto mated message] The ) system which ge nerated this result tra nsmitted reference range : 98 - 107 mEq/L. The refe rence range was not u sed to interpret this result as normal/abnormal . [facility] CenterPotassium Hnril0382-52-31 07:43:11 Test Item Value Reference Range Interpretation Comments Potassium Lvl (test code 3.1 See_Comment L [A utomated message] = 7333-3) The system whic h generated this result transmitted ref erence range: 3.5 - 5. 1 mEq/L. The refe rence range was not u sed to interpret this result as normal/abnor mal. Lab Interpretation (test Abnormal code = 45780-7) [facility] Club[facility] Ikfcd7571-00-77 07:43:09 Test Item Value Reference Range Interpretation Comments Sodium Lvl (test code 141 See_Comment [Auto mated message] The = 2951-2) system which ge nerated this result tra nsmitted reference range : 136 - 145 mEq/L. The refe rence range was not used to interpret this result as normal/abnormal . [facility] CenterAspartate Aminotransferase 2022-12-18 07:43:08 Test Item Value Reference Range Interpretation Comments AST (test code = 1920-8) 47 U/L <=40 H Lab Interpretation (test code = Abnormal 15068-9) [facility] CenterCarbon Dioxide [id number] 07:43:07 Test Item Value Reference Range Interpretation Comments CO2 (test code = 23 See_Comment [Automated message] The 2028-07) system which ge nerated this result transmit vincent reference range : 22 - 29 mEq/L. The refe rence range was not used to interpret this result as normal/abnormal . [facility] CenterNT-Pro BNP (In-House)2022-12-18 07:35:26 Test Item Value Reference Range Interpretation Comments NT ProBNP (test code = 38905-8) 1776 pg/mL <=125 H Lab Interpretation (test code = Abnormal 85987-6) [facility] CenteraPTT2023-01-29 12:25:05 Test Item Value Reference Range Interpretation Comments aPTT (test code = 34.2 See_Comment [Automate d message] The 39019-7) system which ge nerated this result transmit vincent reference range : 22.8 - 34.2 second(s). The reference range was not used to interpr et this result as clara l/abnormal. [facility] CenterProthrombin Rnaf2497-36-98 12:25:04 Test Item Value Reference Range Interpretation Comments PT (test code = 5902-2) 18.0 See_Comment H [Au tomated message] The system [place] [employer] generated this result transmitted ref erence range: 11.9 - 1 4.1 second(s). The reference range was not used to int erpret this result as normal/abnormal . INR (test code = 6301-6) 1.51 0.89-1.10 H Lab Interpretation (test Abnormal code = 73349-5) [facility] CenterFibrinogen2023-01-29 12:25:03 Test Item Value Reference Range Interpretation Comments Fibrinogen (test code = 3255-7) 615 mg/dL 214-503 H Lab Interpretation (test code = Abnormal 90166-9) [facility] CenterD-Otqdy1641-29-31 12:25:02 Test Item Value Reference Range Interpretation Comments D-Dimer (test code = 1.34 See_Comment H [place] [address]-9) exclusion of ve nous thromboembolism is <0.51 mcg/mL FEUs (fi brinogen equivalent unit s). [Automated mess age] The system which ge nerated this result tra nsmitted reference range : 0.10 - 0.50 mcg/ml FEU . The reference range was not used to interpr et this result as normal/abnormal . Lab Interpretation Abnormal (test code = 17210-9) [facility] CenterFungus Culture w/ [id number] 03:36:07 Test Item Value Reference Range Interpretation Comments Final Report (test No fungus isolated at 4 code = 8488) weeks. Path Review - Fungus Culture yield may be (test code = 8479) affected by sample quality, prior treatment, and transportation conditions....The results have been reviewed and electronically signed by Pathologist:Enzo Segovia MD, PhD #[id number] Calcofluor Stain No Fungi seen in direct (test code = 658-5) smearTest performed by fluorescent stain methodology. ANEESH (test code = ANEESH) Cultures are held for 4 weeks before finalization. [facility] CenterGlucose Fjnom6846-72-77 22:09:26 Test Item Value Reference Range Interpretation Comments Glucose Level (test code 221 mg/dL 70-99 H Eff ective 06/14/16, = 2345-7) the glucose reference inter vals have been updat ed based on [place] an Diabetes Associ ation guidelines (Standards of Medical Care in Diabetes 2016. Diabetes Care 2 016; 39: S13-S22).Fa sting blood glucose:Normal: 70-99 mg/dLImpa ired fasting glucose (increased risk for diabetes or pre-diabetes): 100-125 mg/dLDiabetes mellitus: >/=12 6 mg/dL Random bl ood glucose:Normal: 70-199 mg/dLNot e: Random glucose >100 mg/dL is associ ated with increased risk for diabetes Lab Interpretation (test Abnormal code = 18730-3) [facility] CenterTMP Interpretation Crossmatch 2022-12-14 14:42:23 Test Item Value Reference Range Interpretation Comments TMP XM Interp RBC units (test code = crossmatched for 7566) transfusion appear ADR RACHEL santiago. GRACIE MCDERMOTT,Dictated by: CONSTANTINO MCDERMOTT,Dictated Date/Time: 11.20 8:42 AM INTERLOCKING PAVEMENT INSTALLER Tra nscribed Date/Time: 11.20 8:42 AM CSTElectronical ly Signed By: ELISA MCDERMOTT, on 11.20 8:42 AM C [facility] CenterPrepare RBC:G16, 1 [id number] 14:37:50 Test Item Value Reference Range Interpretation Comments PRBC Product Ready 1 Red Blood Cells (test code = Available - 84541-5) Order Form 03 when ready for product issue. Unit Number (test [id number] code = 7002) Product Code (test [id number] code = 7003) Unit Expiration [id number] (test code = 496104) Unit Blood Type 6200 (test code = 7004) Product Code Text RBCIRLR CPD AS1 (test code = 500mL 696397) Crossmatch [id number] Expiration Date (test code = 871664) Unit Irradiated IRRADIATED (test code = 080607) Dispense Status ISSUED (test code = 7001) Unit Blood Type A Positive (test code = 7005) Product Critical Care Unit Manager .BPAM ____ Location (test ___ code = 590406) ___ ____ [facility] CenterRBC Product Ready for Critical Care Unit Manager 2022-12-14 12:14:57 Test Item Value Reference Range Interpretation Comments PRBC Product Ready B2 Blood Bank Product is ready for for Critical Care Unit Manager (test sisal picker on November code = 482190) 2022 06:1 4:48 INTERLOCKING PAVEMENT INSTALLER. [facility] CenterEchocardiogram 2D Complete 2022-12-13 15:52:45 Test Item Value Reference Range Interpretation Comments BSA (test code 2.06 m2 = 1112522716) PXN (test code Baldev Paz MD - = PXN) 12/13/2022 Echocardiographic ReportInterpretation SummaryA complete two-dimensional transthoracic echocardiogram was performed (2D, M-mode, Spectral and color Doppler). Compared to prior study, there is no significant change.Normal left ventricular size and systolic function.LV ejection fraction calculated using the bi-plane method of disks is 57 %.The right ventricle is normal in size and function.Right ventricular systolic pressure is normal.There is no pericardial effusion.Left Ventricle:Normal left ventricular size and systolic function. LV ejection fraction calculated using the bi-plane method of disks is 57 %.I WMSI = 1.00 % Normal = 100 Segments SizeX - Cannot 2 - 1-2 smallInterpret 1 - Normal Hypokinetic 3 - Akinetic 4 - Dyskinetic3-5 moderate5 - Aneurysmal 6-14 large 15-16 ioimesa2R imaginD volumes were not performed in this study.Cardiac Mechanics/Speckle Tracking Imaging:Abnormal global longitudinal peak systolic value. Strain Imaging was performed; GLPS avg = -16.9%.Diastology:Impaired LV relaxation pattern of diastolic dysfunction, Doppler suggests normal LA pressures.Right Ventricle:The right ventricle is normal in size and function. Normal RV systolic function using TAPSE criteria.Atria:Atria are normal in size.Mitral Valve:Mitral annular calcification is present.Tricuspid Valve:The tricuspid valve is not well visualized, but is grossly normal. Right ventricular systolic pressure is normal. There is trace tricuspid regurgitation.Aortic Valve:The aortic valve is trileaflet. The aortic valve opens well. No hemodynamically significant valvular aortic stenosis.Pulmonic Valve:The pulmonic valve is not well visualized.Great Vessels:The aortic root is normal size. The inferior vena cava demonstrates normal size and normal respiratory variation.Pericardium/Pleural: There is no pericardial effusion.MMode/2D Measurements IVSd: 1.3 cm LVIDd: 4.9 cm LVIDs: 2.9 cm LVPWd: 1.2 cmFS: 40.8 % LA dimension: 3.6 cmLVOT diam: 2.3 cm EDV(MOD-A4C): 143.4 mlLVOT area: 4.0 cm2 ESV(MOD-A4C): 57.0 ml EF(MOD-A4C): 60.3 %EDV(MOD-A2C): 124.6 mlESV(MOD-A2C): 54.3 ml EDV(MOD-bp): 134.7 mlEF(MOD-A2C): 56.4 % ESV(MOD-bp): 57.6 ml EF(MOD-bp): 57.2 %LAV(MOD-A4C): 66.9 ml EDV (MOD-bp) Index: 67.0 ml/m2 RWT: 0.49 cmESV (MOD-bp) Index: 28.7 ml/f4QSSJD (>1.6): 2.6 cmDoppler Measurements MV E max santiago: 81.0 cm/sec MV V2 max: 104.4 cm/secMV A max santiago: 96.3 cm/sec MV max P.4 mmHgMV E/A: 0.84 MV V2 mean: 57.6 cm/sec MV mean P.5 mmHg MV V2 VTI: 26.3 cm MVA(VTI): 4.0 cm2Ao V2 max: 181.2 cm/sec LV V1 max P.9 mmHgAo max P.1 mmHg LV V1 mean P.7 mmHgAo V2 mean: 121.1 cm/sec LV V1 max: 110.8 cm/secAo mean P.5 mmHg LV V1 mean: 78.1 cm/secAo V2 VTI: 38.4 cm LV V1 VTI: 26.2 cmAVA(I,D): 2.7 cm2AVA(V,D): 2.5 cm2SV(LVOT): 105.1 ml PA V2 max: 115.5 cm/sec PA max P.3 mmHg PA V2 mean: 80.8 cm/sec PA mean P.8 mmHg PA V2 VTI: 25.4 cmTR max santiago: 235.9 cm/sec MAY Index (I,D): 1.4TR max P.3 mmHgAVA Index (V,D): 1.2 Dimensionless Index: 0.6157 [facility] Add-On Test 2022-12-13 15:50:08 Test Item Value Reference Range Interpretation Comments Ordered (test code = 6568) Test Added Test Needed (test code = 7604) ProBNP [facility] CenterFlow Cytometry Specimen Collection -Bone [id number] 12:14:15 Test Item Value Reference Range Interpretation Comments Flow Cytometry Yes Test performe d by:The (Received) (test code = [facility] 8319) [facility] CenterFlow Cyto metry L[address]vzrdxgbo[address] [place] [address] Maria Elena Ap Link (test B23-000 code = 05376) [facility] CenterTroponin T (In-House)2022-12-13 10:23:33 Test Item Value Reference Range Interpretation Comments Troponin T (test code 30 ng/L <=18 H < 19 n g/L Suggest = 55886-7) retest at 3 to 6 hours later to rule out myocardial infarction >= 1 9 to <=52 ng/L Possi ble myocardial inju ry. Suggest retest at 3 hours. - a cindy nge of < 20 ng/L, retest at 6 scarlett rs - a change of >= 20 ng/L, suggestiv e of myocardial infarction > 52 ng/L Suggestive of myocardial infarction Crit ical value will be reported when c Jane is > 52 ng/L an d only reported f or the first in a series. Hemolyz ed specimens with Hemolysis Index >100 (100 mg/dl or moderate hemoly sis) may cause interferences a nd falsely low results. ANEESH (test code = ANEESH) Draw the second lab 6 hours after the ACCC level. Lab Interpretation Abnormal (test code = 41223-9) [facility] CenterCalcium Ionized, [id number] 09:57:56 Test Item Value Reference Range Interpretation Comments V Ion Ca (test code = 74679-3) 1.22 mmol/L 1.15-1.29 [facility] CenterCOVID-19 (SARS-CoV-2)Enyezzhjxaeg-VN2910-75-25 04:01:07 Test Item Value Reference Range Interpretation Comments COVID19 Not Detected Not Detected (SARS-CoV-2) (test code = 91672-2) COVID19 SARS Inpatient Indication (test Admission code = 22041) Covid 19 Comment See Note The hector S ARS-CoV-2 (test code = [place] [address]) use on the naila s Salena System is a nano l-time RT-PCR assay in tended for the qualita tive detection of SARS-CoV-2 (COV ID-19) viral RNA in nasopharyngeal swabs from either individuals mallorie pected of COVID-19 by their healthcare prov ider or from any individual, inc luding individuals wit hout symptoms or oth er reasons to susp ect COVID-19. A fac t sheet for patie nts provided by the human resources technician ([employer]) can be rev iewed at: https://www.fda .gov/m edia/583201/cassie nload. A fact sheet fo Health Care pro viders is provided by the human resources technician ([employer]) and can be reviewed at: https://www.fda .gov/m edia/503605/cassie nload Results must be interpreted wit hin the context of all relevant clinic al and laboratory find ings and should not form the sole basis for a diagnosis or treatment decis ion. Positive result s do not rule out bacterial infec tion or co-infection with other viruses. Negative result s do not preclude SARS-CoV-2 infe ction and must be com bined with clinical observations, p atient history, and/or epidemiological information. Th is assay has been authorized by t FDA for use only un john Emergency Use Authorization ( EUA) in laboratories that have been CLIA-certified to perform moderate-comple xity and high-comple xity tests. The Microbiology Laboratory at [facility], CLIA Accreditation #[id number] and CAP Accreditation #[id number], verif ied the performance characteristics of this assay. Int ernal controls are us ed to monitor all sta ges of the test proces s. [facility] CenterCreatine Sbqnin3401-28-82 02:39:25 Test Item Value Reference Range Interpretation Comments CK (test code = 2157-6) 23 U/L 39-308 L Lab Interpretation (test code = Abnormal 05089-9) [facility] CenterCKMB2023-01-25 02:39:24CK MB<2.0<=10.4 ng/mLUT LITTLE COLORADO MEDICAL CENTERUnFort Duncan Regional Medical CenterMD TP53 Collection, Bhjlzpld6097-07-77 17:06:21 Test Item Value Reference Range Interpretation Comments Molecular Diagnostics (Received) (test Yes code = 8400) [facility] CenterMolecular Diagnostics Specimen Collection -Bone Uqhzwt9607-03-36 17:02:09 Test Item Value Reference Range Interpretation Comments Molecular Diagnostics (Received) Yes (test code = 8400) Maria Elena Ap Link (test code = 52783) [id number] [facility] CenterCytogenetics Specimen Collection - Bone [id number] 16:50:09 Test Item Value Reference Range Interpretation Comments Maria Elena Ap Link (test code = 39934) [id number] Cytogenetics (Received) (test code Yes = 8304) [facility] CenterCG Chromosome Analysis Collection, Vnzvoylh6939-74-38 16:48:10 Test Item Value Reference Range Interpretation Comments Cytogenetics (Received) (test code = Yes 8304) [facility] CenterPeripheral Smear for Bone Marrow 2022-12-12 14:21:51 Test Item Value Reference Range Interpretation Comments Peripheral Smear (test code = 4273) PSMEAR [facility] CenterDifferential Ueaaaw5227-19-45 07:03:32 Test Item Value Reference Range Interpretation Comments Diff Cancelled (test See Note Due to low WBC, the code = 8954) differential wi ll not be performed and i t is not possible to elizabeth culate ANC. [facility] Lwvrhzoe6422-52-35 08:49:08 Test Item Value Reference Range Interpretation Comments POC Critical Comment See Note Test pe rformer notified (test code = 8955) Ordering Licensed Provider and /o r designee of POC Glucose Screen critical Results.. [facility] CenterGastrointestinal Multiplex Panel Path Llzlmc3329-85-09 16:37:41GIMP PRReviewed and Electronically signed by Pathologist:Kyra Orr MD, PhD #[id number] [facility]ITALUnFort [facility] Medical CenterGastrointestinal Multiplex [id number] 07:46:49 Test Item Value Reference Range Interpretation Comments Campylobacter (test code = Not Detected Not Detected 90152-0) C difficile DNA (GI Multi Refer to separate Panel) (test code = C. difficile DNA 97533-4) Assay for results Plesiomonas shigelloides Not Detected Not Detected (test code = 57887-0) Salmonella (test code = Not Detected Not Detected 18662-3) Vibrio (test code = Not Detected Not Detected 02747-4) Vibrio cholerae (test code Not Detected Not Detected = 65524-7) Yersinia enterocolitica Not Detected Not Detected (test code = 23181-3) Enteroaggregative E. coli Not Detected Not Detected (EAEC) (test code = 23073-7) Enteropathogenic E. coli Not Detected Not Detected (EPEC) (test code = 39314-2) Enterotoxigenic E. coli Not Detected Not Detected (ETEC) (test code = 93792-6) Shiga-like toxin-producing Not Detected Not Detected E. col (STEC) (test code = 72373-2) E. coli O157 (test code = Not Applicable Not Detected 51683-5) Shigella/Enteroinvasive E. Not Detected Not Detected coli (EIEC) (test code = 53593-0) Cryptosporidium (test code Not Detected Not Detected = 62271-1) Cyclospora cayetanensis Not Detected Not Detected (test code = 29481-5) Entamoeba histolytica Not Detected Not Detected (test code = 32127-1) Giardia lamblia (test code Not Detected Not Detected = 78091-0) Adenovirus F 40/41 (test Not Detected Not Detected code = 59644-6) Astrovirus (test code = Not Detected Not Detected 01641-7) Norovirus GI/GII (test Not Detected Not Detected code = 13775-0) Rotavirus A (test code = Not Detected Not Detected 57023-1) Sapovirus (I, II, IV and Not Detected Not Detected V) (test code = 60131-9) [facility] CenterTransfusion Rxn Culture w/ Gram Rvdqx0573-31-09 16:29:02 Test Item Value Reference Range Interpretation Comments Final Report (test code = No growth 8488) Gram Stain Report (test No organisms seen. code = 8487) [facility] CenterClostridium Difficile DNA Path Gtolcf8873-30-21 18:14:02C diff DNA PRReviewed and Electronically signed by Pathologist:BRODY GRIFFIN MD #[id number] [facility]ITALUnFort Duncan Regional Medical CenterClostridium Difficile DNA [id number] 17:53:59 Test Item Value Reference Range Interpretation Comments C difficile DNA (test Negative Negative code = 5134) C difficle Toxin EIA Test Not Performed Negative (test code = 8961) C difficile C. difficile DNA Interpretation (test code detection was = 0533129) negative making C. difficile infection highly unlikely in this patient. EIA not performed. [facility] CenterTMP Interpretation Transfusion Gtylqfuu6687-24-32 20:26:06 Test Item Value Reference Range Interpretation Comments TMP TXN RXN FEBRILE Interp (test NON-HEMOLYTIC code = 7564) TRANSFUSION FERNANDO REACTION (FNHTR). Haris TEJEDA - Please see consult [id number] ated by: note in OPAL SIMS MD - [employer]. [id number] Date/Time: 11.19 14:26 PM INTERLOCKING PAVEMENT INSTALLER Transcribed Baudilio e/Time: 12.02.2022 14:2 6 PM CSTElectronical ly Signed By: ALLI TEJEDA MD - 2005 on 12.02.2022 14:2 6 PM [facility] CenterVZV Quant, Ccezit4102-61-98 14:43:28 Test Item Value Reference Range Interpretation Comments VZV Not Detected Not Detected Assay Range: 2 78 copies/mL to Plasma-Brianda copies/mL 1.00E+08 copies /mLThe limit of cor (test quantitation (L OQ) is 278 code = copies/mL. VZV DNA 7995) detectedbelow t he LOQ will be reported as Det ected:<278 copies/mL.This test was developed and i ts performance characteristics determined by [facility]. It has not been cleared or approvedby the U.S. Food and D rug Administration. Results should be used inconju nction with clinical findin gs, and should not form the so lebasis for a diagnosis or tr eatment decision. Performe d At:[facility] [place] [address] [id number] Director: Adam Freitas Ph.D., EDWIGE Gatic[employer] (ABB)CLIA#: [id number] e: [facility] CenterHSV 1+2 Quant, Czorni7528-29-47 14:43:27 Test Item Value Reference Range Interpretation Comments HSV1 Not Detected Not Detected Plasma-Brianda copies/mL cor (test code = 5829) HSV2 Not Detected Not Detected Assay Range fo r HSV 1 is 37 Plasma-Brianda copies/mL copies/mL to 1. 00E+08 cor (test copies/mLAssay Range for HSV 2 code = is 73 copies/mL to 1.00E+08 5836) copies/mLThe li annika of quantitation (L OQ) is 37 (HSV 1) and 73 (HSV 2)copies/mL. HSV DNA detected be low the LOQ will be reported asD etected:<37 copies/mL (HSV 1) or Detected:<73 co pies/mL (HSV 2).This test wa s developed and its performance characteristics determined by [facility]. It has not been cleared or approvedby the U.S. Food and D rug Administration. Results should be used inconju nction with clinical findin gs, and should not form the so lebasis for a diagnosis or tr eatment decision. Performe d At:[facility] HospitalMukul lanza [address]Vxngxkhykg Director: Adam Freitas Ph.D., EDWIGE Gatica (ABB)IA#: [id number] e: [facility] FillmoreRespiratory Multiplex PCR Panel, Nasopharyngeal [id number] 01:21:21 Test Item Value Reference Range Interpretation Comments Adenovirus (test code = Not Detected Not Detected 32206-7) Coronavirus 229E (test Not Detected Not Detected code = 25703-3) Coronavirus HKU1 (test Not Detected Not Detected code = 41082-8) Coronavirus NL63 (test Not Detected Not Detected code = 14463-7) Coronavirus OC43 (test Not Detected Not Detected code = 34732-6) COVID19 (SARS-CoV-2) Not Detected Not Detected (test code = 39961-8) Human Metapneumovirus Not Detected Not Detected (test code = 91229-9) Human Not Detected Not Detected Rhinovirus/Enterovirus (test code = 46885-6) Influenza A (test code Not Detected Not Detected = 45642-3) Influenza A H1 (test Not Detected Not Detected code = 27364-0) Influenza A H1 2009 Not Detected Not Detected (test code = 05164-8) Influenza A H3 (test Not Detected Not Detected code = 70978-3) Influenza B (test code Not Detected Not Detected = 77746-8) Parainfluenza 1 (test Not Detected Not Detected code = 86693-4) Parainfluenza 2 (test Not Detected Not Detected code = 69480-2) Parainfluenza 3 (test Not Detected Not Detected code = 52634-7) Parainfluenza 4 (test Not Detected Not Detected code = 03090-6) Respiratory Syncytial Not Detected Not Detected Virus (test code = 88018-4) Bordetella Not Detected Not Detected Parapertussis (test code = 31146-4) Bordetella pertussis Not Detected Not Detected (test code = 34442-5) Chlamydiophila Not Detected Not Detected pneumoniae (test code = 00046-2) Mycoplasma pneumoniae Not Detected Not Detected (test code = 84166-3) ANEESH (test code = ANEESH) Has patient had a positive for COVID-19 result in the last 3 months?->No The BioFire RP2.1 is a real-time, nested multiplexed polymerase chain reaction test designed to simultaneously identify nucleic acids from 22 different viruses and bacteria associated with respiratory tract infection, including SARS-CoV-2, from a single nasopharyngeal swab (PRINTER MAINTAINER) specimen obtained from individuals suspected of respiratory tract infections, including COVID-19. Results must be interpreted within the context of all relevant clinical and laboratory findings and should not form the sole basis for a diagnosis or treatment decision. Positive results do not rule out coninfection with other organisms. Negative results in the setting of a respiratory illness may be due to infection with pathogens that are not detected by this panel, or a lower respiratory tract infection that may not be detected by an PRINTER MAINTAINER specimen. Internal controls are used to monitor all stages of the test process and assess for possible amplification inhibitors. If inhibition is detected, testing is repeated and if inhibition is confirmed the specimen is resulted as "Invalid". When an "Invalid" result occurs, it is recommended to wait 3 days before submitting a new specimen for testing if clinically indicated. This assay has been approved by the FDA for use in laboratories that have been CLIA-certified to perform moderate-complexity and high-complexity tests. The Microbiology Laboratory at [facility], CLIA Accreditation #[id number] and CAP Accreditation #[id number], verified the performance characteristics of this assay. Microbiology Laboratory at [facility] performs the assay using the Sk[employer].it System. [facility] CenterTMP Interpretation Manual Antibody Screen Jxcnvuhd3861-02-05 21:06:28 Test Item Value Reference Range Interpretation Comments TMP Neg ABSC At the present Interp (test time, patient code = 7558) plasma shows no ____OPAL TEJEDA MD evidence of RBC - 87178Fvjpn vincent by: alloantibodies. OPAL AUGUST MD - [id number] D ate/Time: 12.01.2022 15:0 6 PM INTERLOCKING PAVEMENT INSTALLER Transcribed Baudilio e/Time: 12.01.2022 15:0 6 PM CSTElectronical ly Signed By: OPAL BANGURA MD - [id number] on 11.19 15:06 PM [facility] CenterAntibody Screen Ejsfut3070-31-24 20:34:38 Test Item Value Reference Range Interpretation Comments ABSC Interp (test code = 890-4) Negative ABSC [facility] CenterHSV/VZV DNA Empqucvvg1534-26-03 18:40:25 Test Item Value Reference Range Interpretation Comments HSV/VZV Specimen Penis Info (test code = 9626) HSV-1 DNA (test Negative Negative code = 9623) HSV-2 DNA (test Negative Negative code = 9624) VZV DNA (test Negative Negative HSV 1+2/VZV DN A is a code = 9625) nucleic acid amplification t est (NAAT) intended for the qualitative detection and differentiation of herpes simplex virus type 1, herpes simplex virus type 2, a nd varicella-zoste r virus DNA isolated an d purified from cutaneous or mucocutaneous l esions from symptomati c patients.Refere nce Range: DNA NegativeWhen in valid results are obt ained, a new specimen should be collected fo r repeat testing if clinically miguel cated. ANEESH (test code = Penile lesions ANEESH) on glans [facility] CenterUrinalysis w/Microscopic if Qssxjfumb6655-94-09 18:34:24 Test Item Value Reference Range Interpretation Comments UA Color (test code = Straw Straw-Yellow 14257-0) UA Appear (test code Clear Clear = 47862-5) UA Glucose (test code 50 mg/dL NEG A = 5792-7) UA Bili (test code = NEG NEG 5770-3) UA Ketones (test code NEG NEG mg/dL = 5797-6) UA Spec Grav (test 1.012 1.003-1.035 code = 5810-7) UA Blood (test code = NEG NEG 5794-3) UA pH (test code = 7.0 5.0-9.0 5803-2) UA Protein (test code NEG NEG mg/dL = 5804-0) UA Urobilinogen (test NEG NEG code = 5818-0) UA Nitrite (test code NEG NEG = 5802-4) UA Leuk Est (test NEG NEG code = 5799-2) UA Comment (test code See Comment No selvin roscopic exam = 58835-4) performed, physiochemical findings are ne gative Lab Interpretation Abnormal (test code = 64594-0) [facility] CenterABORh Yrwqpi7750-49-02 18:16:01 Test Item Value Reference Range Interpretation Comments ABORh Manual (test code = 882-1) A POS [facility] CenterUrine Wuexhus0790-81-02 00:43:11 Test Item Value Reference Range Interpretation Comments Final Report (test No growth code = 8488) Path Review - Urine The results have been (test code = 8483) reviewed and electronically signed by Pathologist:BRODY GRIFFIN MD #[id number] [facility] CenterCOVID-19 (SARS-CoV-2) PCR- Asymptomatic [id number] 06:52:54 Test Item Value Reference Range Interpretation Comments COVID19 (SARS Not Detected Not Detected CoV-2) Result (test code = ____[place] s a 48782-4) qualitative reverse-transcr iptase polymerase areli n reaction (RT-PC R) developed for t he Ems[employer] HECTOR 680 0 system and inte nded for qualitative detection of SA RS CoV-2 RNA in nasopharyngeal and oropharyngeal s wab specimens colle cted from any indivi duals, including those suspected of CO VID-19 by their health care provider, and t hose without symptom s or other reasons t o suspect COVID-1 9. A fact sheet for patients provid ed by the manufacture r ([employer]) c an be reviewed at:https://www. fda.go v/media/847005/ downlo ad. A fact shee t for Health Care pro viders is provided by the human resources technician ([employer]) and can be reviewed at: https://www.fda .gov/m edia/885168/cassie nload Results must be interpreted wit hin the context of all relevant clinic al and laboratory find ings and should not form the sole basis for a diagnosis or treatment decis ion. Positive result s do not rule out bacterial infec tion or co-infection with other viruses. Negative result s do not rule out SARS-CoV-2 and must be combined wit h clinical observations, p atient history, and/or epidemiological information. "Presumptive Positive" resul ts are due to partial amplification o f SARS-CoV-2 targ ets and indicates l ow amounts of viru s present in the specimen at or near the limit of detection. Regardless, individuals wit h "Presumptive Positive" resul ts should be manag ed per institutional guidelines as individuals pos itive for SARS-CoV-2 virus, including use o f appropriate inf ection control protoco ls. Internal contro ls are included to ass ess for possible amplification inhibitors. If inhibition is detected, testi ng is repeated and if inhibition is confirmed the specimen is res ulted as "Invalid". W hen an "Invalid" resul t occurs, it is recommended to wait 3 days before submitting a ne w specimen for te sting if clinically indicated. This assay has been approv ed by the FDA for use only under Emergency Use Authorization ( EUA) in laboratories that have been CLIA-certified to perform moderate-comple xity and high-comple xity tests. The performance characteristics of this assay were verified by the Microbiology Laboratory at [facility], CLIA Accreditation # : [id number] and CAP Accreditation # : [id number]. COVID19 SARS INFECTION CONTROL SPECIALIST Swab Source (test code = 31583) COVID19 SARS Inpatient Indication (test Admission code = 25748) ANEESH (test code = Weekly swab ANEESH) [facility] CenterPrepare platelets:Transfusion Date: 11/29/2022; Transfusion Indications: Actively Bleeding; G1656, 1 Kccei6503-05-64 22:36:36 Test Item Value Reference Range Interpretation Comments PLT Product Ready Approved Platelet o rder (test code = has been 98904-4) approved. Order Form 3 when ready for product issue. Expect 2 hours for platelet concentration. Unit Number (test [id number] code = 7002) Product Code (test [id number] code = 7003) Unit Expiration [id number] (test code = 846305) Unit Blood Type A000 (test code = 7004) Product Code Text PLATELETS Pooled IR (test code = 597690) Number of Units in 6 Pool (test code = 497127) Unit Irradiated IRRADIATED (test code = 403863) Dispense Status ISSUED (test code = 7001) Unit Blood Type A Pooled Rh (test code = 7005) Product Critical Care Unit Manager .BPAM ____ Location (test ___ code = 208330) ___ ____ [facility] CenterPLT Product Ready for Critical Care Unit Manager 2022-11-29 21:55:32 Test Item Value Reference Range Interpretation Comments PLT Product Ready B2 Blood Bank Product i s ready for for Critical Care Unit Manager (test sisal picker on November code = 910259) 2022 15:5 5:28 INTERLOCKING PAVEMENT INSTALLER. [facility] CenterCytology Non-Director Database Interpretation 2022-11-28 23:17:33 Test Item Value Reference Range Interpretation Comments Gross Description (test a2lrpLJeCBRaaEYUEQ code = 4288884812) AaTGNxTU5wtZmxoOz8 fUwvPORbluD8mAUnJF xbs1qsYXR4d2ckoxXL FcjjPNQcWK0lZNvrCC ZoNU7dEkKgGJVmWqBe XHBhcGVydzEyMjQwXH QcuGYxzVN1DELaMS4z cmdsMTgwMFxtYXJncj Z2CPJkiLRrN8TtYYTc HB0vercgAWQ3XWVRDg eiCh6pcCMqqVqyUeWf ZmNoYXJzZXQwXGZuaW mnJXPfUBc4dW1GHkig H71pe3L2Ult5QXTsVO JfE8UpXT6nOMMfrJQn W41BSxifVXT6RDBTZu aqVlwftLynr4PpqNPk XHNnIFxcaWQgNTEwMD AgXFxkYiBPVlIgIiAx IAOgNVR0NlL1KMu3PK VMDNUjDaN1WOm6OaJ6 OUf7OIZeYZ8mFNwhnO GhTGgzCnaeGWppT326 SIxwPCIhC5ZoS4SpRC xzZyBcXGlkIDUxMDAy NYimFBJyQ7NDRQNhMP W4XqT7KTBnFNy2RCfs S7XHELMkAQQ4BxH2Oc nfKjD8UTo2BLTFNy1m JRPlNtI2PjG5ZvV2ME M8FYAsGV4pWWwiuCNw RMprd6WxEjGbZHJdOA enycW7JCVfnjXwMOwv mCklrC0lWADkZ21oe8 WGt0QaLP8NPNk8gdZp rjbryB7kGDYplyUxWO ejkERsW5nhG6YuIXNq InGeSDYCsZRzGGG9oF z9GPJsPSBmKLS4CLup QUOsfFBlf8jiACHpWS cbBR2lVmFgbWQfmYWu jYxdZodtySA9QMsjCy ssbW1rfEGCKAIZAafW ArwyqtLlNU1LQWTVCs LPAV87KsJ4NaG9BJkw fXtcZmxkcnNsdCBcJz RYpT2wxOFazbEnrIDt jEImeUW6GLUoPVofz4 ldWIYlNMats6YrFDzJ OOQPRP4MTY5miKN7M5 wQLQZXM7sRyJB5j7wi vDLpo6j7LTzcTKC5lT HceE7evZZcf7llKofq yUW7BYfpNualbU8blX BIWVBFUkxJTksgbmFt LS4PVKkGTE0GyCQ3w8 mwnRGnq6u0GHfuNSY0 fVxwbGFpblxsdHJjaF zpem91YDR6PQUaCRwj czIwICBmbHVpZHtcZm ydwFB8WEowMwbauC3d dCBIWVBFUkxJTksgbm WuND1GQQVVBO3EgXF9 RgIkgSL7UM76HTBoTJ WcePNzDLvsB912DSOy UIywTVa4pdIoQPUgWX xmczIwXHBhciANClxw fq44JHT3t2vyeZQnVQ gnItppbSWdumP5EXkK SUKPCWfORhLkWF8zGB jZO4TFIWeQQukvYRJ7 KKnjpBA7u7oqqBIsl4 y3SUwaCTF7lOPwXANb bWVuIGNvbmNlbnRyYX WmEEGieAAwiXDhU0Gg bYNmSyZmPYQle19kxU NfrE3jcVJwg9viuISs MZdlVnxwiVYofkO4MM aDTOIUZCeTHhAwRA2x QImPZ2PGXpX0YoR8Ng Z4L8wemYqeYxmwqdWx iONxXfCVlF5ghTlkzM 1feHNyH5jvI6QxLJEe ApKsWFcws8YeXIyhyI ljWHNhMzAgDQpcdiBT BLAWRPuFI6GjOKNPIX UUDATpRmQPZU2xBfT2 AjY5JX2oQydkDsA4Gf NupOK8HHGJNIGTLTsK O6SlRYOWVIHVEEEvXI 0MKRaYCGJOMMBWH49W DQRHYBUNA1CLW4cNCN Vwg8ZhmB8rtAQpa4jM POEFVRCGT51RKNHBHT TLC6AFBBOEOYFTEKqL RQNZUm7TJKDRNLWQSV 9CRUdJTiAxXHtmbHVp TDgwVSK7YHl0K8r1S9 3kO5KbjGWlpYdclmA6 THNcwyrawJN5OmN1Kn J8LtHNrUAnzX4stkHx j81dDH98byE8IOQiMf ktL7n8f2LgeiJtcUS9 N9H5oI8wQMOsM7ikbL G7QXJtfYRFBSQKOCeJ TWGQJz7NQXNEUXHKTC 2GDgMsE1PRQK6UPg7N AIKGMSPYCY2YURzVXd HzD7BVUQ9HXs3SGOIR TNENUQ2JTwYgGKTSX0 IQVuOHO5hbJOAUOANZ NGTmVtXIKV3uHJEXLV 9WKSMEYETBT18TRNNG WHJOD0ISXV9VNYUxTK BucHSMETD6FW4dUKzm RDNzF4RxL0VnvbU7i1 cfrCnoq2ZzbWIpJU2k kGVoJK4XXDZfhbPgXN tieJdswL3tOKo7 Major Classification (test NFMC/benign code = 9839) Diagnosis (test code = 34) h7wxoSIuAHIouEFdAB IwMlxhbnNpXHNwbHRw B3SddbbeUZtuRJ7jGS 5veGxhdHRveWVuXGRl QfLeg1ayt593xMCrc0 gqXUUDuhygtGy8iBzw J42ry1P7VfelH6pfHX QwXGdyZWVuMFxibHVl OAf8IPUrrTVrmkRiHk AiDUJovZNylZQ7NHPn UK7wpruzCRiuGJgyOE MurfK9ZRMxiZFtZ8Xx VSCuXD9kjdegRHC7DV lhXFPkDUK2HpFtULWq o7Vtkbx1HxRsaUp5b3 mwASHqXWWeyZxzg1zd KEM3GNKbeTXoC9apgB 4oDGPlII0ttuxco5dl OVcpVZnpLGHayWW0db X1MRAcvPBqQ6JvtA6l NDQwXHBhcmRccGxhaW 9pNfNdFZlzCpXdH2Qd SPMcw7RhqB7oxZOsfT VpZCwgbHVtYmFyIHB1 byF3gPAnZfsqOTVkzH FyXHRhYiBObyBtYWxp G74dapSeI6LklWQrcA RlbnRpZmllZFxwYXJ9 Retained/Biomarker Testing e6hckTJwJLZmzARrWU (test code = 9838) IwMlxhbnNpXHNwbHRw V9AkvvswAPowLU1pOC 5veGxhdHRveWVuXGRl FyDbi1sxi162rALvq3 ewGUCDxvsukSi9oQfn C54fz0X0FikoQ8nyOL MeJVBnK5ZxOE6rHUGw Xfn9KQJ5OSv8TJQiwE VydzEyMjQwXHBhcGVy iOO9KPCmEJ9cexxyIX mhUChuXINbxlU4YXBt qOUoS1SmILGbBA4xzp ytIMH8MIvxABGrDEN1 ZqRePHPua4Nkwyq5Zg BccGFyZFxwbGFpblxm srPzTTHpB3JzMJKcNH NSOiAyIFNccGFyfQ== Informational Points (test p2sykZVdDRSdsRHmKj code = 9836) XvCPJqHGDxl2mvXVVz bGFuZzEwMzNcZnRuYm lvmBYsVWGbNpAje8ct p341zYGvf7tkRQQuGm Z5tTZhMKWwaDFqA383 SHTqEJokw1zfl9RiSV YfnYVvq4G2ARKAFHed AFXZFEb1g3saGqLeOj Q7vAAsMDnmB0hjpeQv sIKhMZGhVYb7zF15MD MsbT1fwMCjNMfjfgYi VsI2DIxxXQBoCfQ5ZY GjuNTyXZEcG7ipHZLj XGdyZWVuMFxibHVlMC O9dCjvn6N9gRYydNHo dHtcZjBcZnMyMiBOb3 RrFZt3xZifG9JjNGFm GaR2dOMrARAiOXstAI KhZGMksvO9eH95EXow kvA6cFUsf1Pps12uv9 65bR7nbZQoRZJ2ORFm OEPhgYDzDYVmTYB9NH SedCXqP3skJKWdSZ9m cmdyMTgwMFxtYXJndD J5PLHlxGCeR5TlUHHo RMvqNUYtrab8YjZuPq 4smJKlhLfhOEqfi3uw h2ojtNDtPey8DJBvTg ZeBvsdOIyhx9Ofh0ij HLXssq4dZIO1bZYzlD tna2S0xIJiVSIkhUPj akCjSKNwVpL1VJyyZC 0lnp84BIIeYGA3xl0q bGNccGdicmRyaGVhZF xcY9TwEUChk118BEVj U6MoGPIog7F0waEmJl HiUTGgyPN6ckJ1XDFr FTd4uVXdqyN7bqHdjW BzG6rwuJ4hBOKmAW2q ybedl9onJShdBZqgTQ RuoJC1ewB6IQLiqNOc V0TqbQ1oSYBiSOkxXT Mctht9UfLmBb4mnITm eTcyMFxzYmtwYWdlXH BnbmNvbnRccGduZGVj XHBsYWluXHBsYWluXG YwXGZzMjRccWxccGxh mG4yZeUeJgImGSekJF 1eEPAwW2exlFEmZBTt WIAfT7vzYqBbbJ1raU cmSYqlvkZ5UYveW32j NTW3DZM8upLgOQQdrb RjOFDcAYKkEK7euLPp UVIuTNWfMJ5wZJR0EK xvcGVkIGFuZCBwZXJm x8VeSJ0hIHWbvYOkMT T1KFJmh4QoP0DdHCM0 UKDnmN1jUEYjjSRVNC BNRCBBbmRlcnNvbiBQ NIDkd0evS6gbOJ7rQN beWd0kSEWtqbeqLOKg aWNpbmUuIFRoZXNlIH Xws0IzUAckdxRuqu09 WRHaVR1ai9OfU8auvT QpyCp4ZIFqDHXoGFDl c7AkGBZcfe11VIUvQd nboDlqPFZxPf2eCl6u QLYdpwQvLHM1FzYLQM 4hmjmpbXKqxNkezf2t XHBsYWluXGYyXGZzMj JcbGFuZzEwMzNcaGlj aFxmMlxkYmNoXGYyXG laA4haQlJnAmViCyvg YXJ9 [facility] CenterCSF Diff Path [id number] 23:12:50 Test Item Value Reference Range Interpretation Comments CSF Diff Path Review NO MALIGNANT Interpretation (test CELLS IDENTIFIED ___ code = 8889) __ _MD Keren HUGHES [id number] b y: MD Keren HUGHES [id number] Date/Time: 11.28.2022 17:1 2 PM INTERLOCKING PAVEMENT INSTALLER Transcribed Date/Time: 11.28.2022 17:1 2 PM CSTElectronical ly Signed By: MD Keren HUGHES [id number] on 11.28.2022 17:1 2 PM [facility] CenterCell Count w/ Diff [id number] 02:23:19 Test Item Value Reference Range Interpretation Comments Type CSF (test code = Tap When r eviewing the 7672) cell count and differential re sults, azalia mckeon consider the le ngth of time between spinal fluid collection and testing and the clinical condit ion of the patient. Appear CSF (test code = CLEAR CLEAR When reviewing the 53950-0) cell count and differential re sults, azalia mckeon consider the le ngth of time between spinal fluid collection and testing and the clinical condit ion of the patient. Color CSF (test code = Colorless Colorless When reviewing the 97911-7) cell count and differential re sults, clinicians harjinderu mike consider the le ngth of time between spinal fluid collection and testing and the clinical condit ion of the patient. WBC CSF (test code = 1 See_Comment When re viewing the 806-0) cell count and differential re sults, clinicians shou mike consider the le ngth of time between spinal fluid collection and testing and the clinical condit ion of the patient. [Automated mess age] The system [employer] generated this result transmitted ref erence range: 0 - 5 /m cL. The reference r ildefonso was not used to interpret this result as normal/abnor mal. RBC CSF (test code = 33 See_Comment H When re viewing the 792-2) cell count and differential re sults, clinicians harjinderu mike consider the le ngth of time between spinal fluid collection and testing and the clinical condit ion of the patient. [Automated mess age] The system [employer] generated this result transmitted ref erence range: 0 - 0 /m cL. The reference r ildefonso was not used to interpret this result as normal/abnor mal. Tot Cells CSF (test 17 When rev iewing the code = 14175-7) cell count a nd differential re sults, clinicians shou mike consider the le ngth of time between spinal fluid collection and testing and the clinical condit ion of the patient. Neut CSF (test code = 0 % 0-5 When r eviewing the 97488-7) cell count and differential re sults, clinicians shou mike consider the le ngth of time between spinal fluid collection and testing and the clinical condit ion of the patient. Lymph CSF (test code = 82 % 28-96 When reviewing the 99708-2) cell count and differential re sults, clinicians shou mike consider the le ngth of time between spinal fluid collection and testing and the clinical condit ion of the patient. Histiocyte CSF (test 6 % 16-56 L When re viewing the code = 85595-3) cell count a nd differential re sults, clinicians shou mike consider the le ngth of time between spinal fluid collection and testing and the clinical condit ion of the patient. Other CSF (test code = 12 % Diffe rential is 6576) referred to Pathologist for review.The othe r cells may be fu rther characterized a nd enumeratedin th e Pathologist's interpretation. When reviewing the c ell count and differential re sults, clinicians griselda mckeon consider the le ngth of time between spinal fluid collection and testing and the clinical condit ion of the patient. Microorganisms CSF None Seen None Seen When revi kumar the (test code = 9393) cell coun t and differential re sults, clinicians griselda mckeon consider the le ngth of time between spinal fluid collection and testing and the clinical condit ion of the patient. Lab Interpretation Abnormal (test code = 85641-4) [facility] CenterVRE Rectal [id number] 02:24:14 Test Item Value Reference Range Interpretation Comments Final Report (test Many Enterococcus A code = 8488) faeciumVancomycin-Resis tant enterococciCall to inpatient nurse to follow. Path Review - VRE The results have been A (test code = 8485) reviewed and electronically signed by Pathologist:Enzo Segovia MD, PhD #[id number] Lab Interpretation Abnormal (test code = 05282-8) [facility] CenterUrinalysis with Microscopic 2022-11-24 22:15:52 Test Item Value Reference Range Interpretation Comments UA Color (test code = Straw Straw-Yellow 91082-6) UA Appear (test code = Clear Clear 56871-9) UA Glucose (test code 500 mg/dL NEG A = 5792-7) UA Bili (test code = NEG NEG 5770-3) UA Ketones (test code NEG NEG mg/dL = 5797-6) UA Spec Grav (test 1.011 1.003-1.035 code = 5810-7) UA Blood (test code = NEG NEG 5794-3) UA pH (test code = 6.5 5.0-9.0 5803-2) UA Protein (test code NEG NEG mg/dL = 5804-0) UA Urobilinogen (test NEG NEG code = 5818-0) UA Nitrite (test code NEG NEG = 5802-4) UA Leuk Est (test code NEG NEG = 5799-2) UA WBC (test code = 1 See_Comment Some rep orting 65853-5) parameters with in the Urinalysis test have changed due to the implementation of new instrumentation in the [facility], al lowing greater sensiti vity of measurement. Urinalysis resu lts reported by the [facility] using existing instrumentation , as well as Urinaly sis testing perform ed manually or by backup methodology at the [facility] denilson l remain relative ly unchanged. New reporting teodoro eters and units will not be reported for al l campuses. [Auto mated message] The sy stem which generated this result transmit vincent reference range : 0 - 2 /HPF. The refer ence range was not u sed to interpret this result as normal/abnor mal. UA RBC (test code = NOT SEEN See_Comment [Automa vincent message] 80231-3) The system [email or web address] h generated this result transmitted ref erence range: 0 - 2 /H PF. The reference range was not used to int erpret this result as normal/abnormal . UA Mucous (test code = NOT SEEN Not Seen-Trace 03487-3) /HPF UA Bacteria (test code NOT SEEN NOT SEEN /HPF = 55633-9) UA Squam Epi (test NOT SEEN None-Occasional code = 61989-4) /HPF UA Trans Epi (test OCC NOT SEEN /HPF A code = 26950-0) Lab Interpretation Abnormal (test code = 73725-1) [facility] Fill[place]Wound Culture w/Gram Stain 2022-11-24 14:01:01 Test Item Value Reference Range Interpretation Comments Final Report (test No growth code = 8488) Path Review (test Culture yield may be code = 8492) affected by sample quality, prior treatment, and transportation conditions....The results have been reviewed and electronically signed by Pathologist:Enzo Segovia MD, PhD #[id number] Gram Stain Report No WBC's seen.No organisms (test code = seen. 34865-9) [facility] CenterLegionella [id number] 13:59:00 Test Item Value Reference Range Interpretation Comments Final Report (test No Legionella species code = 8488) isolated Path Review - Legionella absent or Legionella (test code below limits of = 8480) detection.Culture yield may be affected by sample quality, prior treatment, and transportation conditions....The results have been reviewed and electronically signed by Pathologist:Enzo Segovia MD, PhD #[id number] [facility] CenterMD Maribel-Pop Virus Quantitative PCR Collection, [id number] 15:37:59 Test Item Value Reference Range Interpretation Comments Molecular Diagnostics (Received) (test Yes code = 8400) [facility] CenterCMV Quant [id number] 14:02:47 Test Item Value Reference Range Interpretation Comments CMV DNA PCR Target Not Target Not Normal Range: T arget (test code = Detected Detected IU/mL Not Detected. Reportable 5214) Range: 34.5 to 4,000,000 CMV D NA IU/mL; values b etween 4,000,000 to 10 ,000,000 CMV DNA IU/mL m ay be reported but th kyree should be inter preted with caution as this range of the as say has not been advertising intern ally verified. The c linical significance of CMV levels at 4,000 ,000 IU/ml verses th ose above 4,000,000 is unclear. Result s are expressed in CM V DNA IU/ml plasma. Methodology: Th e extraction and quantitation of cytomegalovirus (CMV) DNA in human pl asma is performed using the HECTOR [employer] Syst em. Amplification o f viral DNA is achieved using polymerase areli n reaction (PCR). Internal contro ls are included to ass ess for possible amplif ication inhibitors. If inhibition is d etected, the specimen is tested again and if in hibition is confirmed th e specimen is res ulted as "Invalid". When an "Invalid" resul ts occurs, it is recommended to wait a minimum of 7-10 days before submitti ng a new specimen for te sting. This is an FDA- approved assay and its performance characteristics were verified by the microbiology la boratory at the [facility]. Results must be interpr eted within the cont ext of all relevant cl inical and laboratory findings. [facility] CenterHBV DNA [id number] 22:18:24 Test Item Value Reference Range Interpretation Comments HBV DNA [facility] Undetected Undetected IU/mL Result in log IU/mL is (test code = Undetected. 62099-5) ----ADDITIO NAL INFORMATION---- ----The quantif ication range of this a ssay is 10 to1,000,000,000 IU/mL (1.00 log to 9. 00 log IU/mL). Testing was performed using the hector HBV test ([employer] with the hector 6800 System. Test Pe rformed by:[place] [address]Lab Director: Lucio Amos M.D. Ph. D.; CLIA# [id number] [facility] CenterPlt [id number] 21:36:07 Test Item Value Reference Range Interpretation Comments Platelet count (test code = 777-3) 26 K/uL 140-440 L MPV (test code = 61515-3) 9.6 fL 4.0-10.4 Lab Interpretation (test code = Abnormal 46296-8) [facility] CenterCryptococcal Ag Serum Path Review 2022-11-17 16:28:13Crypto Ag, Serum PRReviewed and Electronically signed by Pathologist:Kyra Orr MD, PhD #[id number] [facility]ITALUnFort [facility] CenterHepatitis B Surface [id number] 16:02:01 Test Item Value Reference Range Interpretation Comments HBs Ab (test code = 30890) Reactive Non Reactive A Lab Interpretation (test code = Abnormal 55471-0) [facility] CenterRespiratory Viral Panel, Send-Out (BAL)2022-11-17 03:47:09 Test Item Value Reference Interpretation Comments Range RVP Specimen Source BAL (test code = 20108) RVP Adenovirus Not Not Detected Detects Serot ypes B and E. (test code = 99570) Detected Detectio n of Serotype C may be limited.If A denovirus infection is gordon spected and a Not Detected re sult isreturned the sample should be re-tested fo r adenovirus using anindepen dent method (e.g. [facility] Adenovirus QuantitativeRea l-time PCR test). RVP Not Not Detected Enterovirus/Rhinovi Detected debora (test code = 65203) RVP Bocavirus (test Not Not Detected code = 97752) Detected RVP Coronavirus Not Not Detected This test do es NOT assay for (test code = 72449) Detected the nove l 2019 Coronavirus out of[place]. Th is test detects the res piratory Coronaviruses: types 229E,OC43, NL63 , and HKU1. RVP Metapneumovirus Not Not Detected (test code = 75040) Detected RVP Influenza A Not Not Detected (test code = 09098) Detected RVP Influenza Not Not Detected A-J9I6-66 (test Detected code = 58655) RVP Influenza B Not Not Detected (test code = 51058) Detected RVP Parainfluenza Not Not Detected (test code = 64747) Detected RVP Respiratory Not Not Detected The Respira tory Syncytial Syncytial (test Detected Viral assay detects both code = 70939) types A and B, however it does not distin guish between the two.Target Enriched Multiplex Polym erase Chain Reaction (TEM-P CR) allowsfor the detection o f multiple pathogens out o f a single reaction.This t est was developed and i ts performance characteristics determined by [employer]. It has not been cleared or approvedby the U.S. Food a nd Drug Administration. Results should be used inconjunction with clinical f indings, and should not form the solebasis for a diagnosis or treatment decis ion.TEM-PCR is a licensed t echnology of [employer]. Perform ed At:[facility] kcad[address] [address]Alcbtuqdsr Director: Adam Freitas Ph.D ., BCLD (ABB)CLIA#: [id number] e: [facility] MD [facility] FillmorePneumocystis jiroveci Quant, BAL 2022-11-17 02:36:23 Test Item Value Reference Interpretation Comments Range P. jiroveci Not Detected Not Detected Assay Range: 8 4 copies/mL to BAL-Viracor copies/mL 1.00E+08 copies /mLThe limit of (test code = quantitation (L OQ) is 84 6592) copies/mL. Pneumocystisjir oveci DNA detected below the LOQ will be reported as Detected:<84cop ies/mL.This test was devpradipo enrrique and its performance characteristics determined by [employer]. It has not been cleared or approvedby the U.S. Food and D Industrias Lebario Administration. Results should be used inconju nction with clinical findin gs, and should not form the so lebasis for a diagnosis or tr eatment decision. Perfor med At:[facility] [place], [place] [address]M[place]ul [address]Satnkeihdm Director: Adam Freitas Ph.D ., BCLD (ABB)CLIA#: [id number]: [facility] Cancer FillmoreCMV Quant [id number] 02:36:11 Test Item Value Reference Range Interpretation Comments CMV Not Detected Not Detected Assay Range: 7 9 IU/mL to BAL-Viracor IU/mL 1.88E+08 IU/mLO ne IU is equal (test code to 0.53 copies of CMV.The limit = 5211) of quantitation (LOQ) is 79 IU/mL. CMV DNA detected belowthe LOQ wi ll be reported as Detected:<79 IU/mL.This test was developed a nd its performance characteristics determined by [employer]. It has not been cleared or approvedby the U.S. Food and D [employer] Lebario Administration. Results should be used inconju nction with clinical findin gs, and should not form the so lebasis for a diagnosis or tr eatment decision. Performe d At:[facility] [place] [address]Sdzmypqhbj Director: Adam Freitas Ph.D., BCL D (ABB)CLIA#: [id number] e: [facility] CenterCryptococcal Antigen, Serum 2022-11-16 19:56:19 Test Item Value Reference Range Interpretation Comments Cryptococcal Ag Screen Serum Interp Negative (test code = 5406) [facility] CenterAspergillus Ag Assay Path Review 2022-11-16 18:57:35ASP Ag PRReviewed and Electronically signed by Pathologist:Kyra Orr MD, PhD #[id number] [facility]ITALUnFort [facility] Medical CenterBody Fluid Diff Path [id number] 20:39:05 Test Item Value Reference Range Interpretation Comments Body Fluid NO DIAGNOSTIC Diff Interp EVIDENCE OF (test code = MALIGNANCY. 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 Baudilio e/Time: 11.15.2022 14:3 9 PM CSTElectronical ly Signed By: AMELIA Wynne MD, PhD - [id number] on 10.20 14:39 PM [facility] CenterAspergillus Ag [id number] 17:27:02 Test Item Value Reference Range Interpretation Comments Aspergillus Antigen Index (test code = 0.10 0.00-0.49 4728) Aspergillus Antigen Interp (test code = NEG 4729) [facility] CenterBody Fluid [id number] 04:23:29 Test Item Value Reference Range Interpretation Comments Tot Cells BF (test code 100 = 7636) Neut BF (test code = 0 % 0-25 6489) Lymph BF (test code = 2 % This a ssay has been 6187) validated for b cecilia fluids. No refe rence ranges have bee n established. Te st results should be interpreted in context with the patien t s clinical cond ition. Pathologist con sult is available. Histiocyte BF (test code 98 % Thi s assay has been = 5907) validated for b cecilia fluids. No refe rence ranges have bee n established. Te st results should be interpreted in context with the patien t s clinical cond ition. Pathologist con sult is available. [facility] CenterCell Count [id number] 04:21:49 Test Item Value Reference Range Interpretation Comments Type BF (test code = BAL 7671) Appear BF (test code = HAZY 4819) WBC BF (test code = 24 See_Comment This ass ay has been 8035) validated for b cecilia fluids. No reference ra nges have been establishe d. Test results should be interpreted in context with the patien t s clinical cond ition. Pathologist con sult is available. [Aut omated message] The sy stem which generated this result transmitted ref erence range: /mcL. Th e reference range was not u sed to interpret this result as normal/abnormal . RBC BF (test code = 235 See_Comment This ass ay has been 6933) validated for b cecilia fluids. No reference ra nges have been establishe d. Test results should be interpreted in context with the patien t s clinical cond ition. Pathologist con sult is available. [Aut omated message] The sy stem which generated this result transmitted ref erence range: /mcL. Th e reference range was not u sed to interpret this result as normal/abnormal . [facility] CenterAspergillus Ag Assay, Serum Path [id number] 18:58:03Asp Ag Serum PRReviewed and Electronically signed by Pathologist:Kyra Orr MD, PhD #[id number] [facility] CENTERUnFort Duncan Regional Medical CenterAspergillus Ag Assay, [id number] 17:58:19 Test Item Value Reference Range Interpretation Comments Aspergillus Antigen Index (test code = 0.06 0.00-0.49 4728) Aspergillus Antigen Interp (test code = NEG 4729) [facility] CenterMRSA Screening [id number] 00:37:48 Test Item Value Reference Range Interpretation Comments Final Report (test No Methicillin resistant code = 8488) Staphylococcus aureus isolated. Path Review (test The results have been code = 8492) reviewed and electronically signed by Pathologist:BRODY GRIFFIN MD #[id number] [facility] Cancer FillmoreUrinalysis Microscopic Exam 2022-11-12 22:18:59 Test Item Value Reference Range Interpretation Comments UA WBC (test code = 1 See_Comment Some rep orting 36046-1) parameters with in the Urinalysis test have changed due to the implementation of new instrumentation in the [facility] greater sensiti vity of measurement. Urinalysis resu lts reported by the [facility] enters using existing instrumentation , as well as Urinaly sis testing perform ed manually or by backup methodology at the [facility] denilson l remain relative ly unchanged. New reporting teodoro eters and units will not be reported for [facility]. [Auto mated message] The sy stem which generated this result transmit vincent reference range : 0 - 2 /HPF. The refer ence range was not u sed to interpret this result as normal/abnor mal. UA RBC (test code = 3 See_Comment H [Automa vincent message] 46217-1) The system [employer] generated this result transmitted ref erence range: 0 - 2 /H PF. The reference range was not used to int erpret this result as normal/abnormal . UA Mucous (test code = NOT SEEN Not Seen-Trace 10528-5) /HPF UA Bacteria (test code OCC NOT SEEN /HPF A = 22175-3) UA Squam Epi (test OCC None-Occasional code = 29335-0) /HPF UA Gran Cast (test 4 See_Comment H [Automat ed message] code = 02909-8) The system [employer] [facility] generated this result transmitted ref erence range: <=0 /LPF . The reference range was not used to int erpret this result as normal/abnormal . Lab Interpretation Abnormal (test code = 18604-8) [facility] [id number] 21:39:14 Test Item Value Reference Range Interpretation Comments POC AB pH (test code 7.48 7.35-7.45 H The i-S TAT is an = 2744-1) analyzer used f or in vitro quantific ation of various anal ytes in whole blood. The device uses a s lianna disposable cart ridge which contains microfabricated sensors, a calibration solution, fluid ics system, and a w aste chamber. Each t est cartridge conta ins chemically sens itive biosensors on a silicon chip th at are configured to perform specifi c tests. The microfabricated sensors measure analyte concentration b y an electrochemical assay. POC AB pCO2 (test 35 See_Comment [Automate d message] code = 2019-) The system [facility] generated this result transmit vincent reference range : 35 - 45 mmHg. The reference range was not used to interpret this result as normal/abnormal . POC AB pO2 (test 308 See_Comment H [Automated message] code = 2703-7) The system [employer] generated this result transmit vincent reference range : 80 - 105 mmHg. The reference range was not used to interpret this result as normal/abnormal . POC AB TCO2 (test 28 See_Comment H [Automate d message] code = 2025-) The system [facility] generated this result transmit vincent reference range : 23 - 27 mEq/L. The reference range was not used to interpret this result as normal/abnormal . POC AB Bicarb (test 27 mmol/L 22-26 H code = 1960-4) POC AB Base Ex (test 3 mmol/L -2-3 code = 26765-5) POC AB O2 Sat (test 100 % 95-98 H code = 2708-6) POC FiO2 (test code 80 = 3150-0) POC ABG Draw Site Lt Radial (test code = 6663) POC Sin Test (test Performed code = 04621-4) POC Sample Type Arterial (test code = 6690) POC Clean Dev (test Yes code = 6672) Performing Lab (test [facility] code = 77841) [facility] Cli nical [facility], [address] [place], [place] [address], [place] [address]; Road Manager: Leslie Ventura MD Lab Interpretation Abnormal (test code = 23242-6) [facility] Cancer CenterTissue/FNA [id number] 05:38:44 Test Item Value Reference Range Interpretation Comments Final Report (test No growth code = 8488) Path Review (test Culture yield may be code = 8492) affected by sample quality, prior treatment, and transportation conditions....The results have been reviewed and electronically signed by Pathologist:Enzo Segovia MD, PhD #[id number] Gram Stain Report No WBC's seen.No organisms (test code = 8487) seen. ANEESH (test code = Right thigh ANEESH) [facility] [facility] Interpretation 2022-11-03 18:34:42 Test Item Value Reference Range Interpretation Comments Submitted Clinical History b3vnsRRgKEPvvSNiOPY (test code = 62955) wMlxhbnNpXHNwbHRwZ3 EgrldcEEbgSG6dDO8rn GxhdHRveWVuXGRlZmYw t7jsj129dLHyi2dkSPS AlrrbfBk7vDjkM33vp5 Z5LmqjY92fzIKpFYQ7D TIyNDBccGFwZXJoMTU4 TJImoGCzK1ihAOHcYA4 hcmdyMTgwMFxtYXJndD E9XZHchBUfS2GcYDMjY KqyMPAkfon5JrObLk1n dGVyeTcyMFxwYXJkXHB sYWluXGZzMjAgTmVvcG bpa94jw4UwiA0mZDT1J XleTUMlyMZ8wR8bRJ4l SFQhbQ6sG5V0ZL92ZGg wYXJ9 Diagnosis (test code = 34) b5gdwOGcOZYovODvZRH wMlxhbnNpXHNwbHRwZ3 DjqmncZBxqWT8hGA7aj GxhdHRveWVuXGRlZmYw n5xdh746sJRmo9xcQBE XjcwghEz2yBlhM73qy8 K5MbrtE6rgGHPuGBibY VYyULqdoPEpQEl0MKZm cGVydzEyMjQwXHBhcGV cwNL5WBIpZA4jdtxtZM coLMorQDSlcvW5QFDjm UBkD2QlDKRtAU5jzxrx JMK8UNgqRAGoYXW5KfS wMUEsl9Nxyrs3HxUbjY FyZFxwbGFpblxmczIwX GNmMSBBOiBUaGlnaCwg xrptqYLhWKXiuQ3kdAP oC0t0GEAsqskjqUwsRG pmoH46LpVqW8CdDTMhb un2OGQlkRrztyKplvPm kVOlmXUqptL3LMybnPb wpFejuMjlyHpzU0j5hU AawY7mqBl3siV2VLSqI T0atKNsYEjivXuxTJVe hbLUM9LZHXQGZVKcZAL MJHfIHOkhZI3SX38VT6 cYJWRaD3UADEXdOQAEH xIPY0RPEcKtD5aBVNAU T4PJNIYONSTACnTZIJV qLL4DJ5sHYU2MGdQoIa kgUEFUSUVOVCdTIEFDV MBAGU1MSKaJIUOwBTTB T0ZEQJAatMMnVNVlYJN zp11hMK69OqZsfGEudM == Comment (test code = 9835) n9ykkXIiEFInwEFoSBL wMlxhbnNpXHNwbHRwZ3 PxgvlaQZsxKB0nTO4lo GxhdHRveWVuXGRlZmYw r0ked005lYEot9ppVHS SfxzyhKz0oXyhJ62td7 S1GprqE63llJPpQVD9G TIyNDBccGFwZXJoMTU4 CGSedOXgD9ljZKMqSZ0 hcmdyMTgwMFxtYXJndD V8EUHoiLHsK0QeMCFvR EzlCCQrjpp6KlWnCt3p dGVyeTcyMFxwYXJkXHB mJZqoDBMqDfEbS5VraF sxvbVbybS0FQFtSQWwm LDhJ5arEvdnlPJ5RB3i IQSfnD4rbA9qoN7ubPS kZSBkZWVwIHJldGljdW ciccVsBFAuvPGnr2ins 9twDiMswFcoEGRdjl4w bCBwdXJwdXJhLCBtaWx kIHBhcGlsbGFyeSBkZX UxANdcCOGghBReXK7je GQgZXBpZGVybWFsIHNw i68aaL8wbHMkMJ4rZU3 pbmltYWwgYWNhbnRob3 Egqs8yWOlgGXXve46xx EN6lY1lAVdfuUedxDSg f1PzdQill6PnqOyeJZP kia4leYYtgU7vSJG3SH NzZWxzLCBoYWlyIGZvb MupY1vwejDhjpMeZGGy cmluZSBnbGFuZHMsIHR gAJOeSNjzOZ5fUTEsFI VemEtzYGIof8WpfSamp GeweViaaKswK4l1wSEn uW3qkJa2evT1GJEcklW qw6ZvO2xjgTldgfL2lO QkOHNhIVI4HYFzCCCgk QncaSUjhHExo33zgjLz cSNolrOeSJitwuyps3d 2xWLamIezJH89Y0cvRT DhuH3xM5c6l8FbFKEja VOgeyS1dE5rGX3mBPPz HCR0qEUoDtVyeMMsFDI uIFxwYXJccGFyIFNwZW XgHUxty7UmsV3xTYdAQ AQfSJejKG6tJY8pRXXs sOGkEVWhhExpkM0ukjK 6CIGhJEZkUKY9qLYzX5 DkAEH5fkybmEpkGqPgf GVyaWFsIGFuZCBteWNv UjYdhUVdvZBfL9CcuUX tZmFzdCBvcmdhbmlzbX RyLKMue0LtX5DdruJld Y5gZ44wnaHjJMPva31r h6v3nPQtIJQ1uMMyGR6 zYX2jW6BtMqihfI0cfR TpkNk1iHIhxoUtmiInM KThyJ1driTyZGjghPAe YXZhaWxhYmxlLiBccGF bVHGkseGQfT27va8wyD B8o7MqHB8gK5SfYSR5h INfCUCvmuC5KBNuWKJm QIUhMWXdx94pwNRrGZd mgmH1esXjJJRai9PcdP k2WJSlx0RpO6GdBfXgj aRhGOAFBVH9jYvoTFWu STmeZsLrWGbuxEv8DCP dt0ToR0DxBWvoI1SrK4 HIQsZoCJ66jSCjyNsli CksIENEMzAsIGFuZCBU N1ooTwXOcPPzXAR6xXM mq9Rmk28ri4FeEOFHRL 9DRDEyMyAgYnkgbXVsd KutrJI7ZDanqXLtg7oe t1CyO4ijoAoiIKspa8V 1ZMjuVJ4qwx3ujPA0RS 4yVELtUXZxEMKiB0Jig B9mFZozUjiabI0sdG8r eSBpbmZpbHRyYXRlIGl lJFKrcWHoc0BsNC2fWM 8zm8ZdyNAUVFc7dCEuo 9Z9aLGaJUplrNbxlwFm ZSBCIGNlbGxzLiBccGF yXHBhciBUaGUgbGFjay UxGgJwvTFlkDAut7XpF llgy6LpSVJ2yLLofyCe EKL6pMCgWX31wfJupdR vbHZlbWVudCBieSBwYX MdLS36R3XdUHF2hHFmm OvphZ3xUNWcJHCzMK7z YDYfuj96ZWpyvDrcyJk jZLI4sVwnORIczrI1yS DkV5GpneUoeBGptJ0ik 4zuTIDbjZ5nS1RnUUCz wHrkvW9qbAXuS69mzzO iFAWfh77hdPYdwyLsZN VzAPA4OuNkTWNosw8= Gross Description (test a0bvePMtCJZfbHUSZKF code = [id number]) bBNUsPF2gkGeipIl6sJ ktPUMjsyX2cHRfWExwf 3hvSHM8s1bdsmJLWadt VUQeBF2nFVfcARYyDQ4 nZmUwXGRlZmYxXHBhcG VydzEyMjQwXHBhcGVya OJ4MSQzEG8sphrnHCwr DRazORWkiaM9GAGqcMZ lK8CwBXQfDZ8fcwraET L1POLIJncbQy7ncOTax HtcZjFcZmNoYXJzZXQw WMBqpQpjWUMhLRa6rP7 ZEwelN09bn4X5Mps5GK ZrGYQmK8QiMS3gKQFbg BMuB94YKkqmMXU9ZYZJ PrtmRwnaxZpfp7RffSV cXHNnIFxcaWQgNTEwMD AgXFxkYiBPVlIgIiAxM HK0ZmF9RqF6TJj7CLHR NDVmUrF4MOI8LJK2EQf 2LRGlTC4yFXekeSFdHS qkZrtqHMljT324PQszX QJtC7SqP8QbQDveRkQj XGlkIDUxMDAyIFxcZGI aW5HJHVGtKJE7PgApZc MaFGs3LXuxZ9DDOKXoI XC0QpY5FpetZvB5LCv4 WJFOTm8hDFUpFNidRlS dBTH3HRB2CzIeEFAhLw BcXHNzIDMgXFxmbCBcX H5bmNsvPDOyHC8AJQNj YWluXGJcZnMyMCBBOlx wYXIgDQpccGFyZCANCl xwbGFpblxiXGZzMjBcc XwerZ5xlXKrR8cbAgPz MlxlcGljTmVzdERvYzE gDQpcbHRycGFyXGxpbj BccmluMFxzYTMwXGVwa SVRh3QrZKTJVhpiRKEm MVxmczIwIFRoaWdoLCB yaWdodCwgOlxiMFxjZj ZtFRHkrTKmXF23WM9mo 2hzfwUtxG2xmFYmdB9w l3ziqLLbf8WlgP5tHFJ uNCBjbSBpbiBkaWFtZX UccyWhrrRbAE58ZSYqZ GluIGRlcHRoLiBUaGUg z9PxY9leTB7lcBIpmY7 rWMMcGDSrv5NsxUShAK BlbnRpcmVseSBzdWJta AS6DEDckJ8tWIUwXMIx cHJvdGVjdHtcZmllbGR 2ULfbHfughY1tjPKXDE WLHrwVDtuebzNcCH8IP Z9OTmDZKK56WaKuQIY1 KPdRG7IHbFY5Gcd2TLo 8fXtcZmxkcnNsdCBcJz ORpS7RALkyZikyaIA3E YhsJzwczC8evKDBHEWI XlzAHmsbdeDqYN7VHB0 RVD8PhKKrBSF6bZR2YE GGZnauyOS7iTU7uE26X MEjGPIxeHStFVeiH458 RMIoIBfgXRq3wmVsBGT bSpYyBGsqk7WdVCMogX AQw3OkNG0MFSRmcULUL GU2MA2iFTpoRPVvJ1Bq R6RajgJ2d7xbpMvrc2P isBNmZM2uiSDpPN6FGK ZzMjIgDQp9 [employer](s) (test code = m9qkdEAcMOYiqTSpPSA 9863) wMlxhbnNpXHNwbHRwZ3 MpfztfIArgNB1mWF9sr GxhdHRveWVuXGRlZmYw d0kgf851qIHbi6yuDLS PdfnjaGg0lZyoY48rf3 V1PiyoZ22phTCiUZH4J TIyNDBccGFwZXJoMTU4 YKXwjFXmF4noIWOpMG4 hcmdyMTgwMFxtYXJndD B7MZVjtZAvV8LuGICwR HxgOKWgvtx2WpPyNy5b dGVyeTcyMFxwYXJkXHB sYWluXGZzMjAgVGhpcy BjYXNlIHdhcyBzdHVka WVkIGFuZCBkaXNjdXNz ZWQgYXQgdGhlIGRlcm1 inU8tYPAsk3qbF5exAq YzhOp7pBDed24sCCWbj gItJsJmQTFsdbEJS4Ws RMXIKCudX1OAGTksGSK 9 [employer]arker Block(s) (test j8zqtRRvEQXxrFKkNMP code = 9841) wMlxhbnNpXHNwbHRwZ3 ZvvhpiAQptHQ5dPH1zf GxhdHRveWVuXGRlZmYw m0zoy089xNXcq0jrDQZ FeffatDo3cNuaV98da6 Y5UsxsS23siUNcOJT9G TIyNDBccGFwZXJoMTU4 OXQezGJtL9rhXRMrBR2 hcmdyMTgwMFxtYXJndD F4GZNedZNyO6IjOXHoX JodPHOwhsp4HvXaBk4b dGVyeTcyMFxwYXJkXHB sYWluXGZzMjAgVHVtb3 P9NJBkAABuyfeefUwyD CBBZGVxdWFjeTogQWRl jXDfbEGyVc0sNDadjPN yw2xuq1QcY4rjxKhbTG ilw8RdnN6lc7d5iMTta USqgWVnpdZ0mJ5rWWJ7 eBHbXTSzm10noOctTYY yRidqCYOsx1GtnS2bZL JzpKbcTWO3IHPaXDMku WxhYmxlIFxwYXJ9 Disclaimer (test code = c9intEWvRGFdjGHiOnA 9844) kDMWlHRZkt8tyBXVyrF FuZzEwMzNcZnRuYmpcd CGyJECgRzAdx1uxx965 oLZac1lxDUXkBuX4aNQ pMYBwsTBbS955QEMhBH knr5sve0MsAONvuCOjn 9J6QFUIaolmdAu8iIwl V05mo9B3MssnK1laTRD nGZGhT3MkOD3uEITmDf m4UHT9KXK5YROyUAYvK 0EqJP3vMHIpxAEsERz7 t9umcWxeWIXmBFR9j1s lGYnemsLfNT6tnx1mjN k0s9uwhjTsIWBsJLLyj IUFEGNmJ6DplPglDq7g oLg4tWvwBnkrEHG7Fbs 3NN5qlr67zoo5nXoqKD NbxipwArS9BMcmMYVuk kbbEVn6TLwkXSVgoEG3 HITwnXUdR7YfNARiZB7 wzpy1SWE6QZsbXICwSb L6GDIxfEZmDEVfwJhiS Zhiz761HIF6IyJyAH3l J3Ycw2D7xL4znHLuHGK hyENkSwFdBMQifs1yiT XoTJumu4CxBZV0sqY0w WLfyYQnLJYgZH16Cmxu i6ToVdbpMMI4SVPvzgQ vb3Wok4rhIkQtvgIvN2 awE6YnIXWaZZEmCMKgB yYrruLhe7Vwh5AgoVKz jNl8o0zvGEGgDWEwyKw ax9xxKJL9CPCtT5T2dA Tcx8dzMZvgBRFinCW5j oX0WOEwgTJuB6SppL2h BWAfGI9efwh5c6vlARL 7WZuuGKOeGbN2svH2FA BcaGVhZGVyeTcyMFxmb 109NOU9VdCqOPDnk6Rt V2IvsRxaS21pjGavB80 wAWYduDvrdK4xrHksfT 5cZjBcZnMyNFxxbFxwb XBahzhiUStfgmP3XSqz wyhwHAEmYObzJ7zxUzS rPKUdbGisSDpxa2UuTQ EfDNVwUdzuelW2ILNNu 06oLHOlz1LjYBSjrU3z fEPqFMyxdnMfwXM0YAy hdmUgYmVlbiBkZXZlbG 6gMGLrJT8bUSFwfkVqd u2njcEzMGFkZVBcE4Ji cmlzdGljcyBkZXRlcm1 qplKuNUL7MLJWWI7LJA HwARBpa74qMXQbgXxfs X1xxVZnhsRoSUOjg4Rv eY4liFBTFOVwI0emBX4 ySQezt4MynNGfaPPucJ U1MUWqk4DvFmRoovTte LDspPCeK0NqqFvsN6bv JKTfRHQatvDryFVde8J jAXCzdIH2fDUnJU7ZOk ZCs37eLHBhTELBggAkZ HOijSjbrFL2ehL3dT3s LiBJZiBhcHBsaWNhYmx cDJOue330mw1wwqY1BB WsHQDjviogr1MbDAFeB ANjmH93YJIgRWTcik4f akevvOApsoDgP0Mwlll 0eL3iBWPfSDpxNRKdWU ZzMjJcbGFuZzEwMzNca GljaFxmMVxkYmNoXGYx RYwcZ3yvOgXcPlWlJhu wYXJ9 [facility] Blood Count w/o Ymhnbrtbhlwa3843-75-96 18:48:17 Test Item Value Reference Range Interpretation Comments WBC (test code = 22.5 K/uL 4.0-11.0 H 6690-2) RBC (test code = 789-8) 2.90 See_Comment L [Au tomated message] The system [employer] generated this result transmitted ref erence range: 4.50 - 6 .00 M/uL. The refer ence range was not u sed to interpret this result as normal/abnor mal. Hgb (test code = 718-7) 9.3 See_Comment L [Au tomated message] The system [employer] generated this result transmitted ref erence range: 14.0 - 1 8.0 gm/dL. The refe rence range was not u sed to interpret this result as normal/abnor mal. Hct (test code = 26.3 % 40.0-54.0 L 4544-3) MCV (test code = 787-2) 91 fL 82-98 MCH (test code = 785-6) 32.1 pg 27.0-31.0 H MCHC (test code = 35.4 See_Comment [Automate d message] 786-4) The system ic h generated this result transmitted ref erence range: 31.0 - 3 6.0 gm/dL. The refe rence range was not u sed to interpret this result as normal/abnor mal. RDW-SD (test code = 46.8 fL 35.1-46.3 H 02842-2) RDW-CV (test code = 14.2 % 12.0-15.5 788-0) Platelet count (test 48 K/uL 140-440 L code = 777-3) MPV (test code = 9.9 fL 4.0-10.4 47841-6) INRBC (test code = 0.1 % <=0.0 H The INRBC (instrument 51892-1) NRBC) value ref lects the enumeration of nucleated red b lood cells contained in a 200uL sampleof whole blood analyzed by the instrument. Thi s value maydiffer from the NRBC value reported in a m anual differential,wh ich is based on a 100 cell differential. Lab Interpretation Abnormal (test code = 90223-2) [facility] cloneSEQ-Send out, Bone Rmmouc7668-13-50 16:29:14 Test Item Value Reference Range Interpretation Comments Adaptive clonoSEQ Not Shipped Specimen f or clonoSEQ (test code = testing was obt ained, 97508) processed and s ent out to the [facility].Refe r to separate [facility] Portal for resu lts. Testing B-Cell clonality Indication (test (ID) code = 55454) [facility] CenterPotassium Cukohw0656-74-73 05:45:32 Test Item Value Reference Range Interpretation Comments V K (test 4.4 See_Comment [Automated code = message] The sy stem 83377-8) which generated this result transmitted reference range : 3.4 - 4.5 mEq/L . The reference r ildefonso was not used to interpret this result as normal/abnormal . ANEESH (test TLS. Draw 4 hours post code = ANEESH) cytarabine administration [facility] CenterOsmolality2022-12-14 11:25:50 Test Item Value Reference Range Interpretation Comments Osmolality (test code = 289 See_Comment Unit s in mOsm per kg of 2692-2) water. [Automat ed message] The sy stem which generated this result transmit vincent reference range : 275 - 300 mOsm/kg H2O . The reference range was not used to interpr et this result as normal/abnormal . [facility] CenterHIV-1/2 Antigen and Antibodies, Fourth Zikxetmveb5192-98-39 05:18:36 Test Item Value Reference Range Interpretation Comments HIV Ag/Ab, NON-REACTIVE NON-REACTIVE HIV-1 antigen a nd 4TH Gen (test HIV-1/HIV-2 an tibodies were code = 77415) notdetected. T here is no laboratory evid ence of HIVinfection. P LEASE NOTE: This informatio n has been disclosed toyou from records whose confident iality may beprotected by state law. If your state requ ires suchprotection, then the state law prohi bits you frommaking any further disclosure of t he informationwith out the specific writte n consent of the personto wh om it pertains, or as otherwise permitted by chloe sue.A general authorization f or the release of medi elizabeth orother information is NOT sufficient for this purpose. For additional information please refer [email or web address]/faq /DDH612(This link is being p rovided for informational/e ducational purposes only.) The performance of this assay has not been clinicallyvalid ated in patients less t orr 2 years old. Lab test p erformed by:[facility] : [facility] [id number] [place] [address]DSMUUJARROD POWERS MD [facility] CenterOsmolality [id number] 19:19:29 Test Item Value Reference Range Interpretation Comments U Osmolality (test code 329 See_Comment Urin paulette osmolality may = 7785) vary widely, de pending on the state of hydration. Freer om urine osmolality can range from 50 to 1400 mOsm/kg H2O depending o n fluid intake. In miguel viduals on average flui d intake, urine osmolalit y is typically 300-9 00 mOsm/kg H2O.Uni ts of measure: mOsm p er Kg of water. [Automat ed message] The sy stem which generated this result transmit vincent reference range : 50 - 1,400 mOsm/kg H 2O. The reference range was not used to interpr et this result as normal/abnormal . [facility] Clubodium Level, Ljkui4892-01-95 19:18:13 Test Item Value Reference Range Interpretation Comments U Sodium (test code = 65 mEq/L Normal range not available 2955-3) for collections less than 24 hours in dur ation. [facility] CenterHemoglobin [id number] 19:11:59 Test Item Value Reference Range Interpretation Comments A1C (test code = 4548-4) 13.8 % 4.3-5.6 H HbA 1c values >=6.5% are diagnostic of diabetes mellitus.Diagno sis should be confi rmed by repeat testing.Therape utic Action suggeste d: >8.0% HbA1c; Go al oftherapy: <7.0 % HbA1c Lab Interpretation (test Abnormal code = 14975-8) [facility] CenterHep A IgM Or1487-53-95 17:27:38 Test Item Value Reference Range Interpretation Comments Hep A IgM-Switchback Negative Negative Result does n ot exclude the (test code = possibility of exposure 34071-5) tohepatitis A v irus. Antibody level during early infectionstage may be below the limit of de tection of the assay. Test Performed by:[facility] Sup erior [address], [place], [place] [address]Tjs Director: Lucio Amos M.D. Ph.D.; CLI A# [id number] [facility] CenterResearch Protocol [id number] 2022-10-31 14:53:12 Test Item Value Reference Range Interpretation Comments Research Prot (test code = 7189) 504008 [facility] CenterMD Ph-Like ALL Fusion Multiplex Panel Collection, Nonblood - Send Outs - 4 mL in a separate purple top tube to [facility] xes2171-11-18 00:39:37 Test Item Value Reference Range Interpretation Comments Molecular Diagnostics Yes (Received) (test code = 8400) ANEESH (test code = ANEESH) Send Outs - 4 mL in a separate purple top tube to [facility]DL lab [facility] CenterMD NOTCH1 Exons 26, 27, 34 Collection, Oswzicow5684-32-04 00:39:36 Test Item Value Reference Range Interpretation Comments Molecular Diagnostics (Received) (test Yes code = 8400) [facility] FBXW7 Mutation Analysis Collection, Cssqeosy0974-62-49 00:39:35 Test Item Value Reference Range Interpretation Comments Molecular Diagnostics (Received) (test Yes code = 8400) [facility] t(9;22) BCR/ABL1 Quantitative PCR Collection, Sggudtxv3194-48-04 00:39:33 Test Item Value Reference Range Interpretation Comments Molecular Diagnostics (Received) (test Yes code = 8400) [facility] NRAS Mutation Analysis Collection, Aucjrqyh3704-20-54 00:39:32 Test Item Value Reference Range Interpretation Comments Molecular Diagnostics (Received) (test Yes code = 8400) [facility] KRAS Mutation Analysis Collection, Vbnugvxf0064-48-66 00:39:31 Test Item Value Reference Range Interpretation Comments Molecular Diagnostics (Received) (test Yes code = 8400) [facility] JAK2 Mutation Analysis Collection, Eccojwzq0756-88-01 00:39:30 Test Item Value Reference Range Interpretation Comments Molecular Diagnostics (Received) (test Yes code = 8400) [facility] CenterMD Acute Leukemia Translocation Screen - t(4;11),t(1;19),t(6;9),t(12;21),t(9;22),t(15;17),t(8;21),inv (16)/t(16;16) Collection, Qwwwmwts5310-01-78 00:39:29 Test Item Value Reference Range Interpretation Comments Molecular Diagnostics (Received) (test Yes code = 8400) [facility] TP53 CEP17 FISH Collection, Rlekhwgn2358-97-93 21:45:05 Test Item Value Reference Range Interpretation Comments Cytogenetics (Received) (test code = Yes 8304) [facility] PDGFRB FISH Collection, Nonood 2022-10-30 21:45:04 Test Item Value Reference Range Interpretation Comments Cytogenetics (Received) (test code = Yes 8304) [facility] KMT2A(MLL) FISH Collection, Ivhzitux1418-42-38 21:45:03 Test Item Value Reference Range Interpretation Comments Cytogenetics (Received) (test code = Yes 8304) [facility] JAK2 FISH Collection, Nonood 2022-10-30 21:45:02 Test Item Value Reference Range Interpretation Comments Cytogenetics (Received) (test code = Yes 8304) [facility] EPOR FISH Collection, [facility] 2022-10-30 21:45:01 Test Item Value Reference Range Interpretation Comments Cytogenetics (Received) (test code = Yes 8304) [facility] CRLF2 FISH Collection, Nonood 2022-10-30 21:45:00 Test Item Value Reference Range Interpretation Comments Cytogenetics (Received) (test code = Yes 8304) [facility] BCR/ABL1 t(9;22) FISH Collection, Ciwrqqci7327-85-89 21:44:58 Test Item Value Reference Range Interpretation Comments Cytogenetics (Received) (test code = Yes 8304) [facility] ABL2 FISH Collection, Nonood 2022-10-30 21:44:57 Test Item Value Reference Range Interpretation Comments Cytogenetics (Received) (test code = Yes 8304) [facility] CenterFC PNH Collection, Bpnux8060-17-05 14:07:55 Test Item Value Reference Range Interpretation Comments Flow Cytometry (Received) (test code = Yes 8319) [facility] CenterPML Stain [id number] 05:38:00PB PMLThe PML(POD) stain is negative in this patient, which makes it unlikely that this patient has acute progranulocytic leukemia. Rather the findings are suggestive of acute myeloid leukemia with a degree of differentiation in the myeloid series of cells. Suggest correlation with immunophenotype, cytogenetic and molecular studies to better classify this process. [facility]ENTERUnFort [facility] Medical CenterPeroxidase Stain [id number] 21:53:51PB PEROXThe myeloperoxidase stain is positive in at least 95% of the cells. However, the staining isvariable and some cells show only a few granules surrounding, but not obscuring, the nucleus. These results are consistent with acute myeloid leukemia. Suggest correlation with cytogenetic and molecular studies. [facility]ITALUnFort [facility] Medical CenterConfirm [id number] 20:26:30 Test Item Value Reference Range Interpretation Comments ABORh Confirm. (test code = 882-1) A POS [facility] CenterBeta 2 Rxmkgxiwtgbwn5340-46-06 20:21:49 Test Item Value Reference Range Interpretation Comments Beta2 Microglob (test 4.8 mg/L 0.8-2.3 H This t est is measured code = 5090) by turbidimetri c methodology on the The Binding Site Op tilite analyzer. Resul ts obtained from different metho ds are not interchange able. Lab Interpretation Abnormal (test code = 50405-0) [facility] Pathology Hpnlvr2374-24-18 20:21:48CBC Path InterpLeft shifted granulocytic cells (few promonocytes and myelocytes) with increased blasts. Single Valerie rods are present in rare blasts. Consistent with acute myeloid leukemia. Suggest correlation with bone marrow, immunophenotype, cytogenetic and molecular studies. [facility] HospitalPreliminary Udbzlzvudepe7318-03-11 20:21:47 Test Item Value Reference Range Interpretation Comments Preliminary Diff Comment See Note A Thi s differential (test code = 9643) requires pathologist review. These r esults are preliminary and all elements ar e subject to hurtado ge. Please use caut ion in evaluating your patient based o n preliminary res ults. Preliminary Neutrophil % 5.0 % 42.0-66.0 L (test code = 770-8) Preliminary Lymphocyte % 12.0 % 24.0-44.0 L (test code = 736-9) Preliminary Monocyte % 3.0 % 2.0-7.0 (test code = 5905-5) Preliminary 14.0 % <=0.0 H Metamyelocyte (test code = 740-1) Preliminary Blasts (test 66.0 % <=0.0 H code = 709-6) Lab Interpretation (test Abnormal code = 28926-2) [facility] [id number] 20:20:05 Test Item Value Reference Range Interpretation Comments Folate Lvl (test code = 4.8-24.2 H Hemo lyzed specimens 2284-8) with Hemolysis Index >30.0 (30 mg/dL or visible hemolys is) may cause interference an d give falsely high re sults. Lab Interpretation (test Abnormal code = 91893-4) [facility] B Total Ig Core Ab (SCREENING) (anti-HBc total Ig; HBcAb total Ig)2022-10-29 20:18:44 Test Item Value Reference Range Interpretation Comments HBcAb. (test code = 5742) Reactive Non Reactive A Lab Interpretation (test code = Abnormal 24916-2) [facility] C Virus [id number] 19:15:15 Test Item Value Reference Range Interpretation Comments HCVAb. (test Non Reactive Non Reactive Antibody detect ion in the code = 5762) immunocompromis ed and immunosuppresse d population may be delayed or absent entirely. There fore serial testing, correl ation with other clinical findings, and supplementa l testing (if available) should be taken into cons ideration when interpreti ng the results. [facility] B Surface [id number] 19:14:03 Test Item Value Reference Range Interpretation Comments HBsAg. (test code = 5747) Non Reactive Non Reactive [facility]Ferritin2022-12-11 19:10:00 Test Item Value Reference Range Interpretation Comments Ferritin Lvl (test code = 2276-4) 2364 ng/mL 30-400 H Lab Interpretation (test code = Abnormal 26075-8) [facility] CenterVitamin B12 [id number] 18:52:49 Test Item Value Reference Range Interpretation Comments Vitamin B12 Lvl (test code = 1697 pg/mL 211-946 H 2132-9) Lab Interpretation (test code = Abnormal 44779-8) [facility] CenterTSH2022-[facility]-11 18:49:39 Test Item Value Reference Range Interpretation Comments TSH (test code = 3.63 See_Comment [Automated message] The 27595-9) system which ge nerated this result transmit vincent reference range : 0.27 - 4.20 mcunit/mL. The reference range was not used to interpr et this result as clara l/abnormal. [facility] CenterRetic [id number] 18:17:08 Test Item Value Reference Range Interpretation Comments Retic Cnt Auto (test code = 66229-3) 0.7 % 0.5-1.5 RETHE (test code = 6973) 34.3 pg 23.2-37.5 IRF (test code = 12377-6) 12.3 % 2.3-18.0 [facility] CenterIntubation2020-09-02 12:59:11 Cammie Roca MD ? ? 07/21/2020 ?9:01 AMIntubationDate/Time: 07/21/2020 7:52 AMUrgency: elective Airway not difficult General Information and Staff Patient location during procedure: ORAnesthesiologist: Cammie Roca MDResident/LIFE SCIENCE TECHNICAL OFFICER: Africa Ashby CRNAPerformed: resident/LIFE SCIENCE TECHNICAL OFFICER and anesthesiologist Indications and Patient ConditionIndications for airway management: anesthesia and airway protectionSpontaneous Ventilation: absentSedation level: deepPreoxygenated: yesPatient position: sniffingMILS maintained throughoutMask difficulty assessment: 3 - difficult mask (inadequate, unstable or two provi ders) +/- NMBA (with 100 mm OA) Final Airway DetailsFinal airway type: endotracheal airway Successful airway: ETTCuffed: yes Successful intubation technique: direct laryngoscopyFacilitating devices/methods: intubating styletEndotracheal tube insertion site: oralBlade: MillerBlade size: #2ETT size (mm): 7.5Cormack-Lehane Classification: grade I - full view of glottisPlacement verified by: chest auscultation, capnometry and palpation of cuff Cuff volume (mL): 7Measured from: lipsETT to lips (cm): 23Number of attempts at approach: 1Ventilation between attempts: noneNumber of other approaches attempted: 0 Additional Comments2 hand mask, +OPA, 2 providers required for BVM ventilation. ?Attempt x3. ?DL x1 by LIFE SCIENCE TECHNICAL OFFICER, G3V. ?DLx1 by faculty 2b view, unable to easily advance ETT. ?3rd attempt by LIFE SCIENCE TECHNICAL OFFICER with airtraq successful, G1V, ETT easily passed. +ETCO2. ?Dentition and lips unchanged from pre-op. ?[facility] CenterNerve [id number] 12:37:47Cammie Roca MD ? ? 07/21/2020 ?7:39 AM Nerve Block Procedure: Interscalene Nerve Block Laterality: RightSurgical Anesthesia: no Start Time: 07/21/2020 7:20 AMEnd Time: 07/21/2020 7:30 AMPost Op Pain Management requested by surgeon per surgical: Progress NoteAnesthesiologist: Cammie Roca, MDPerformed by: anesthesiologistPreanesthetic timeout completed prior to procedure: patient identified,IV checked, site marked, risks and benefits discussed, surgical consent, monitors and equipment checked, pre-opevaluation, timeout performedPatient Position: sittingSterile Prep/Drape: YesMonitoring: continuous pulse ox, blood pressure and ECGInjection Technique: single-shotNeedle Type: StimuplexNeedle Gauge: 22 GNeedle Length: 2.0Number of Attempts: 1Motor response present at (mA): 0.9Technique: Stimulating needle, Ultrasound guided and Negative aspirationSensory Effect: AdequateEvents: No paresthesia on incremental injection Medications Given:Sedation:Midazolam 1 Additional Notes:Right interscalene nerve block under US, attempt x1. ?No apparent complications. [facility] [id number] 11:23:00 Test Item Value Reference Range Interpretation Comments POCT Glu (age>30days) (test code = 97 mg/dL 70-110 [id number]) [facility]
--- NOTE | 2022-12-21 11:01 | RAD REPORT ---
EXAM DESCRIPTION: RAD - Hand Left 3 View - 12/21/2022 10:40 am CLINICAL HISTORY: PAINafter fall COMPARISON: None. FINDINGS: No fracture, dislocation or periosteal reaction noted. Mild for age IP joint degenerative change present. No spurring or erosion. Moderately prominent degenerative change present at the trape zium first metacarpal articulation. First MCP joint is slightly narrowed with minimal marginal spurri ng. A small 2.5 mm foreign body is seen in the soft tissues dorsal surface proximal fourth phalanx le santiago. Age of this is uncertain. Arterial tree calcifications present. IMPRESSION: No fracture or acute left hand finding. Small foreign body in the dorsal soft tissues mid shaft level of the fourth proximal phalanx is proba robin old. Correlation is needed with any acute injury to the soft tissues in this location.
--- NOTE | 2022-12-21 11:08 | RAD REPORT ---
EXAM DESCRIPTION: CT - CTHCSPWOC - 12/21/2022 10:46 am CLINICAL HISTORY: fall, on blood thinners, head and neck injury COMPARISON: No comparisons TECHNIQUE: Axial 5 mm thick images of the head were obtained. Axial 2 mm thick images of the cervic al spine were obtained with sagittal and coronal reconstruction images generated and reviewed. All CT scans are performed using dose optimization technique as appropriate and may include automated exposure control or mA/KV adjustment according to patient size. FINDINGS: No intracranial hemorrhage, mass, edema or acute intracranial finding. No acute cortical b ased infarction. No cortical edema or sulcal effacement. Mild to moderate atrophy changes are present . Chronic ischemic change in the cerebral white matter appears mild. Ventricles are in proportion to volume loss. No extra-axial fluid collections. Mastoid air cells and paranasal sinuses are clear. No globe or orbit abnormality seen. Arterial tree calcifications are present. Cervical bodies are normal in height. No subluxation abnormality. Asymmetry is created by left-sided tilt of the head and during image acquisition. No disk space narrowing. No fracture or acute bony abn ormality. Disc bulge changes are present at C3-4 with mild endplate spurring changes seen. Central ca nal detail is limited. Canal is borderline to mildly stenotic at 9-10 mm. No significant foraminal en croachment. Minimum C4-5 disc bulge evident. Central canal is 10 mm in the midline. C6-7 central dora l midline disc bulge noted. Central canal is 10 mm in the midline. No paraspinal mass or hematoma. IMPRESSION: Atrophy and minimal chronic ischemic changes are present with no hemorrhage or acute int racranial finding identifiable. No fracture or acute cervical spine finding. Multilevel disc bulge change present with midline canal narrowing to 9-10 mm as detailed. Age of this disc bulge is unknown.
[2022-12-21 11:19] LABS: Absolute Lymphocytes (CBC) 0.3 K/uL (0.7-4.9); MCV 83.3 fL (80-100); MPV 7.9 fL (7.6-11.3); RBC Red Blood Cell Count 3.48 M/uL (4.33-5.43)
[2022-12-21 11:38] LABS: Magnesium 1.6 mg/dL (1.6-2.4)
[2022-12-21 11:42] LABS: Potassium 2.6 mmol/L (3.5-5.1)
[2022-12-21] MEDS ORDERED: POTASSIUM CL SA 10 MEQ TAB PO ONE (11:51)
--- NOTE | 2022-12-21 12:43 | ER ---
Nurse's Notes [facility] Name: Tristan Rothman Jr Age: 72 yrs Sex: Male : 1950 Arrival Date: 12/21/2022 Time: 10:13 Bed 16 Private MD: Florencio Gillette V Diagnosis: Fall on same level from slipping, tripping and stumbling without subsequent striking against object;Unspecified injury of head, initial encounter;Hypokalemia Presentation: 12/21 10:18 Chief complaint: Patient states: Trip and fall last night. L sided head injury, L hand ll1 abrasion. N/V last night and today. Martin dizzy before fall. Coronavirus screen: Vaccine status: Patient reports receiving the 2nd dose of the covid vaccine. Client denies travel out of the [place] in the last 14 days. At this time, the client does not indicate any symptoms associated with coronavirus-19. Ebola Screen: Patient denies travel to an Ebola-affected area in the 21 days before illness onset. Initial Sepsis Screen: Does the patient meet any 2 criteria? No. Patient's initial sepsis screen is negative. Does the patient have a suspected source of infection? No. Patient's initial sepsis screen is negative. Risk Assessment: Do you want to hurt yourself or someone else? Patient reports no desire to harm self or others. Onset of symptoms was December 20, 2022. 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 - Social history:: Smoking status: Patient/guardian denies using tobacco, the patient reports quitting approximately 43 years ago. Screenin:45 [facility] ED Fall Risk Assessment (Adult) History of falling in the last 3 months, ko1 including since admission Yes- single mechanical fall (1 pt) Confusion or Disorientation No (0 pts) Intoxicated or Sedated No (0 pts) Impaired Gait No (0 pts) Mobility Assist Device Used No (0 pt) Altered Elimination No (0 pt) Score/Fall Risk Level 0 - 2 = Low Risk Oriented to surroundings, Maintained a safe environment, Educated pt \T\ family on fall prevention, incl call for assistance when getting out of bed, Assessed \T\ reinforced patient's understanding of fall precautions, Provided non-skid footwear, Hourly rounding (assess needs \T\ fall precautionary measures) done, Used ambulatory aids as needed (educated on \T\ assisted with), Used gait belt as appropriate. Abuse screen: Denies threats or abuse. Denies injuries from another. Nutritional screening: No deficits noted. Tuberculosis screening: No symptoms or risk factors identified. Assessment: 10:45 General: Appears in no apparent distress. uncomfortable, ill, Behavior is calm, ko1 cooperative, appropriate for age. Pain: Denies pain. Neuro: No deficits noted. Cardiovascular: No deficits noted. Respiratory: No deficits noted. GI: No deficits noted. : No deficits noted. EENT: No deficits noted. Derm: No deficits noted. Musculoskeletal: No deficits noted. Injury Description: Abrasion. 11:45 General: Appears in no apparent distress. uncomfortable, Behavior is calm, cooperative, eh3 appropriate for age. Pain: Denies pain. Neuro: Level of Consciousness is awake, alert, obeys commands, Oriented to person, place, time, situation. Cardiovascular: Capillary refill < 3 seconds Patient's skin is warm and dry. Respiratory: Airway is patent Respiratory effort is even, unlabored, Respiratory pattern is regular, symmetrical. GI: Abdomen is round non-distended, Reports nausea, vomiting. 12:45 Reassessment: Patient appears in no apparent distress at this time. Patient and/or eh3 family updated on plan of care and expected duration. Pain level reassessed. Patient is alert, oriented x 3, equal unlabored respirations, skin warm/dry/pink. Vital Signs: 10:18 BP 139 / 59; Pulse 60; Resp 18; Temp 98.8; Pulse Ox 97% ; Pain 0/10; ll1 10:45 BP 148 / 64; Pulse 72; Resp 16; Pulse Ox 95% on R/A; ko1 11:45 BP 136 / 65; Pulse 73; Resp 16; Pulse Ox 94% on R/A; eh3 12:45 BP 128 / 58; Pulse 77; Resp 16; Pulse Ox 95% on R/A; eh3 ED Course: 10:13 Patient arrived in ED. as 10:14 Florencio Gillette MD is Private Physician. as 10:15 Kerri Quezada FNP-C is [facility]. kb 10:15 Murtaza Contreras DO is Attending Physician. kb 10:19 Triage completed. ll1 10:27 Arm band placed on Patient placed in an exam room, on a stretcher. ll1 10:29 Deborah Buckner, RN is Primary Nurse. ko1 10:42 Hand Left 3 View XRAY In Process Unspecified. EDMS 10:45 Patient has correct armband on for positive identification. Bed in low position. Call ko1 light in reach. Side rails up X 1. Adult w/ patient. monitoring tech on. Pulse ox on. NIBP on. 10:46 Head C Spine Mpr Wo Con In Process Unspecified. EDMS 11:09 Magnesium Sent. ko1 11:09 Basic Metabolic Panel Sent. ko1 11:09 CBC with Diff Sent. ko1 13:12 No provider procedures requiring assistance completed. Patient did not have IV access eh3 during this emergency room visit. Administered Medications: 11:49 Drug: Potassium Chloride 40 mEq Route: PO; ko1 13:10 Follow up: Response: No adverse reaction eh3 Medication: 13:12 VIS not applicable for this client. eh3 Outcome: 12:43 Discharge ordered by . kb 13:13 Discharged to home via wheelchair, with significant other. eh3 13:13 Condition: stable 13:13 Discharge instructions given to patient, significant other, Instructed on discharge instructions, follow up and referral plans. Demonstrated understanding of instructions, follow-up care. 13:13 Patient left the ED. eh3 Signatures: Dispatcher [employer] EDMS Kerri Quezada FNP-C FNP-Ckb Martinez, Amelia as Leroy Lord RN RN 1 Devi James RN RN 3 Deborah Buckner, RN RN ko1 Corrections: (The following items were deleted from the chart) 10:27 10:19 Social history: Smoking status: ll1 ll1 10:29 10:18 Chief complaint: Patient states: Trip and fall last night. N/V last night and ll1 today. Martin dizzy before fall. ll1
--- NOTE | 2022-12-21 12:44 | EDPHYS ---
Physician Documentation [facility] Name: Tristan Rothman Jr Age: 72 yrs Sex: Male : 1950 Arrival Date: 12/21/2022 Time: 10:13 Bed 16 Private MD: Florencio Gillette V ED Physician Murtaza Contreras HPI: 12/21 16:09 This 72 yrs old Male presents to ER via Wheelchair with complaints of Fall Injury, kb Vomiting. 16:09 Details of fall: The patient fell from an upright position. Onset: The symptoms/episode kb began/occurred yesterday. Associated injuries: The patient sustained injury to the head, pain, left hand, painful injury. Severity of symptoms: At their worst the symptoms were mild, in the emergency department the symptoms are unchanged. The patient has not experienced similar symptoms in the past. The patient has not recently seen a physician. Patient states he was walking up 1 step last night and his slipper got caught causing him to fall. Patient reports pain to left hand and left side of head. Denies LOC. Has vomited twice since the fall.. Historical: - Allergies: 10:20 Bactrim; ll1 - PMHx: 10:17 Diabetes - NIDDM; Hypertension; fungal pneumonia; VRE; ll1 10:20 Hypercholesterolemia; Leukemia; ll1 - Immunization history:: Adult Immunizations up to date, Client reports receiving the 2nd dose of the Covid vaccine. - Social history:: Smoking status: Patient/guardian denies using tobacco, the patient reports quitting approximately 43 years ago. ROS: 16:07 Constitutional: Negative for fever, chills, and weight loss. kb 16:07 Abdomen/GI: Positive for vomiting. 16:07 MS/extremity: Positive for pain, of the left hand. 16:07 All other systems are negative. Exam: 16:07 Constitutional: This is a well developed, well nourished patient who is awake, alert, kb and in no acute distress. Eyes: Pupils equal round and reactive to light, extra-ocular motions intact. Lids and lashes normal. Conjunctiva and sclera are non-icteric and not injected. Cornea within normal limits. Periorbital areas with no swelling, redness, or edema. ENT: Moist Mucous membranes Cardiovascular: Regular rate and rhythm with a normal S1 and S2. No gallops, murmurs, or rubs. No pulse deficits. Respiratory: Respirations even and unlabored. No increased work of breathing. Talking in full sentences Abdomen/GI: Soft, non-tender. No distention Skin: Warm, dry with normal turgor. Normal color. Neuro: Awake and alert, GCS 15, oriented to person, place, time, and situation. Moves all extremities. Normal gait. 16:07 Head/face: Noted is no obvious of injury or deformity except ecchymosis, that is mild, of the left congregation. 16:07 Musculoskeletal/extremity: Extremities: grossly normal except: noted in the left hand: pain. Vital Signs: 10:18 BP 139 / 59; Pulse 60; Resp 18; Temp 98.8; Pulse Ox 97% ; Pain 0/10; ll1 10:45 BP 148 / 64; Pulse 72; Resp 16; Pulse Ox 95% on R/A; ko1 11:45 BP 136 / 65; Pulse 73; Resp 16; Pulse Ox 94% on R/A; eh3 12:45 BP 128 / 58; Pulse 77; Resp 16; Pulse Ox 95% on R/A; eh3 MDM: 10:15 Patient medically screened. kb 16:03 Differential diagnosis: closed head injury, contusion, fracture, sprain. Data reviewed: carlyle vital signs, nurses notes. Historians other than the Patient: Family Member: Family member. External Records Reviewed: Outpatient labs from yesterday at [facility] reviewed. Care significantly affected by the following chronic conditions: Leukemia, patient on Eliquis for anticoagulation. Counseling: I had a detailed discussion with the patient and/or guardian regarding: the historical points, exam findings, and any diagnostic results supporting the discharge/admit diagnosis, lab results, radiology results, the need for outpatient follow up, a family practitioner, to return to the emergency department if symptoms worsen or persist or if there are any questions or concerns that arise at home. ED course: Patient has appointment with [facility] tomorrow for follow-up.. 12/21 10:24 Order name: CBC with Diff; Complete Time: 11:44 1 12/21 10:24 Order name: Basic Metabolic Panel; Complete Time: 11:44 1 12/21 10:24 Order name: Hand Left 3 View XRAY; Complete Time: 11:04 1 12/21 10:24 Order name: Magnesium; Complete Time: 11:44 ll1 12/21 10:24 Order name: IV Start; Complete Time: 10:56 1 12/21 10:46 Order name: Head C Spine Mpr Wo Con; Complete Time: 11:15 EDMS Administered Medications: 11:49 Drug: Potassium Chloride 40 mEq Route: PO; ko1 13:10 Follow up: Response: No adverse reaction eh3 Disposition: 10:31 Co-signature as Attending PhysicianMurtaza DO I reviewed the patient's care ms3 provided by Advanced Practice Provider \T\ agree w/ the diagnosis \T\ care plan. I personally saw the pt \T\ performed a substantive portion of the visit, incldng all aspects of the (History/Exam/Medical Decision Making). 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 HPI: 72-year-old male with past medical history of diabetes, hypertension, fungal pneumonia, VRE, acute myeloid leukemia presents with his family member status post falling and hitting his head going into a trailer last night. Fell member states patient has had vomiting since falling. My personal exam of patient reveals: On exam patient is alert and oriented x4, in no apparent distress, nontoxic-appearing. Head significant for abrasions to left congregation. Pupils equal round reactive to light. Neck is nontender to palpation with full range of motion. Heart rate and rhythm are regular without murmurs rubs or gallops. Lungs clear to auscultation bilaterally. Abdomen nontender palpation bowel sounds present in all quadrants. I agree with assessment and care plan and confirm the diagnosis (es) above. 19:25 Co-signature as Attending Physician, Murtaza Contreras DO. ms3 Disposition Summary: 12/21/22 12:43 Discharge Ordered Location: Home kb Condition: Stable kb Diagnosis - Fall on same level from slipping, tripping and stumbling without subsequent kb striking against object - Unspecified injury of head, initial encounter kb - Hypokalemia kb Followup: kb - With: Emergency Department - When: As needed - Reason: Worsening of condition Followup: kb - With: Private Physician - When: 2 - 3 days - Reason: Recheck today's complaints, Continuance of care, Re-evaluation by your physician Discharge Instructions: - Discharge Summary Sheet kb - Head Injury, Adult, [id number] kb - Hypokalemia kb Forms: - Medication Reconciliation Form kb - Thank You Letter kb - Antibiotic Education kb - Prescription Opioid Use kb Signatures: Dispatcher [employer] EDMS Kerri Quezada FNP-Jessenia LUO-Leroy Hawkins, RN RN ll1 Murtaza Contreras DO DO ms3 Deborah Buckner RN RN ko1 Devi Jamse RN eh3 Corrections: (The following items were deleted from the chart) 10:27 10:19 Social history: Smoking status: [facility] 10:36 10:28 Head Brain Wo Cont+CT.RAD.BRZ ordered. EDMS EDMS 10:45 10:35 Head C Spine MPR Wo Con+CT.RAD.BRZ ordered. EDMS EDMS
[2022-12-21 13:18] VITALS: TEMP 98.8
[2022-12-21 13:21] VITALS: BP 128/58; O2SAT 95
== END 2022-12-21 13:13 | disposition home or self-care (01) ==
LOC: ER 10:12
DX: S00.81XA Abrasion of other part of head, initial encounter (principal); E87.6 Hypokalemia; M79.642 Pain in left hand; W01.0XXA Fall on same level from slipping, tripping and stumbling without subsequent striking against object, initial encounter; I10 Essential (primary) hypertension; Z88.1 Allergy status to other antibiotic agents
CPT/HCPCS: 36415; 70450; 72125; 80048; 83735; 85025; 99284